=== PATIENT | female | born 1975 | race Caucasian/White ===

== ENCOUNTER 2020-06-19 04:12 | Inpatient (IN) ==
[2020-06-19] MEDS ORDERED: oxyCODONE HCL IR 5 MG TAB (IMMEDIATE RELEASE) PO STA (04:40)
[2020-06-19] MEDS ORDERED: LORazepam 0.5 MG TAB PO STA (04:40)
[2020-06-19] MEDS ORDERED: SODIUM CHLORIDE 0.9% 1000ML 1,000 ML IV ONE (04:40)
--- NOTE | 2020-06-19 04:53 | Emergency Department Note ---
Impression & Plan Unintentional Tylenol overdose, Hepatitis, Cancer related pain, Right knee sprain ED Provider Note Name: YNES MCCARTY Age: 44 Sex: F Arrives Via: Walk-In Informant: Patient ED Provider: Leonardo Brenner MD Chief Complaint: Pain Impression: Unintentional Tylenol Overdose Hepatitis Cancer Related Pain Right Knee Sprain Medical Decision Making: Very pleasant yet uncomfortable and anxious 44 yr old female arrives with gradually worsening pain since discharge from hospital 3 weeks ago following emergency craniotomy for brain tumor with edema. Patient has history breast CA s/p bilateral mastectomy. Found to have brain tumor several months ago which is lung primary and has been treated with steroids/radiation until emergency surgery 3 weeks ago. 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 This morning she is very uncomfortable, sad and anxious. Pain diffuse but involved body aches, worsening upper abdominal cramping and right knee pain (s/p twisting a few days ago). She denies significant headache nor neuro deficits. After discussion agreeable to small dose Ativan/oxy IR which did seem to calm her down some but still uncomfortable. CXR with large right lung mass similar to previous cxr. Labs with elevated LFTs. This is new and consistent with accidental chronic tylenol overdose. Fortunately bili and INR are normal. She will be started on Acetadote protocol per standard of care. She was willing to try small doses of IV pain meds thus 50mcg IV fentanyl ordered, with understanding that this may be difficult pain to treat as it is. She does not have peritonitis on abdominal exam, already has GB removed, is not febrile nor is wbc elevated thus will defer imaging at this time to hospitalist service. She has no neuro deficits nor change in chronic headache, thus neuro imaging not done emergently. Prior Medical Record and Triage/Nursing Notes reviewed by Me Additional history obtained from chart, epic and Differentials:Infection, dehydration, metabolic abnormality, hypo/hyperglycemia, electrolyte disturbance, anemia, hypoxia, cardiac sources, intracerebral event, toxicologic, neurologic, as well as other pathologies. Vital Signs: reviewed and remarkable for no significant abnormalities Interventions: saline lock, oxy ir po, ativan po, fentanyl iv, acetadote IV Labs:Reviewed and remarkable for elevated LFTs Imaging:X ray results are stated below per my interpretation: Chest: 1 view: large right lung mass, no infiltrate/effusion, similar to previous cxr Right Knee: 2 view; no fracture/dislocation Consults:Dr April Yeboah Hospitalist Plan: Disposition:Hospitalization. Condition: Good History of Present Illness:44 yr old female arrives for evaluation of diffuse body aches. Patient with history of breast ca with bilateral mastectomy and previous cholecystectomy who was found to have brain tumor several months ago and was on radiation/steroids. 3 weeks ago had focal seizure and found to have brain edema leading to craniotomy. Brain tumor noted to be lung primarily. She notes that since getting home from hospital she has been able to get by using Tylenol for pain. Over the last few days worsening body aches, pains and fatigue. She notes she is having aching across upper abdomen (right worse than left) associated with mild nausea. She admits she twisted her right knee yesterday and now it is quite painful. Admits she is very stressed about all of this and anxious. Previously has tolerated Percocet though it made her drowsy. Also has tolerated ativan in past. Earlier she noted her jaw felt a bit stiff but this resolved. She had no seizure, tremors, nor shacking. She admits she has not been eating for the last few days and has only urinated a few times in the last few days. Currently has mild headache which is chronic and unchanged. Used Tylenol prior to arrival without improvement. She has been using Tylenol for the last few months for pain, and has been on round the clock every 6 hours since her surgery. She denies fevers, chills, nausea, vomiting, syncope, cp, sob, back pain (beyond chronic), bowel changes, leg swelling, calf pain, rashes nor other symptoms. No inciting incident. Is not currently on steroids. ROS: See above HPI for pertinent positives & negatives. A total of 10 systems reviewed and were otherwise negative. 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 HEAD: Well healing right craniotomy scar EYES: No scleral icterus, unremarkable pupils. ENT: Mucous membranes moist, no nasal congestion. NECK: No masses appreciated, nomeningismus, trachea is midline. RESPIRATORY: Mild junky cough (chronic). No dyspnea. Clear to auscultation and equal bilaterally. No wheeze, no rhonchi. CARDIOVASCULAR: Regular rate and rhythm.No murmurs, rubs, gallops appreciated. GASTROINTESTINAL: Abdomen soft, non-tender, no peritonitis.Bowel sounds positive.No masses appreciated. BACK: No midline tenderness, no CVA tenderness EXTREMITIES: TTP over right patella with mild swelling, no joint swelling, no calf swelling/ttp. Full ROM though with some discomfort. Otherwise normal motion all extremities, no cyanosis, no edema. NEUROLOGIC: Alert and oriented, no acute motor or sensory deficits, no focal weakness, cranial nerves grossly intact. SKIN: No rash, no jaundice, no diaphoresis. Bruising bilateral hands from IV. PSYCH: Very Anxious, Crying GCS: 15 ED Course: Times/Reassessments: gradually improving Leonardo Brenner MD Past Med/Surg History Medical History (Updated 06/19/20 @ 06:31 by Leonardo Brenner MD) No acute medical problems Surgical History History of cholecystectomy Social History Smoking Status: Former smoker Second Hand Exposure: No; Do You Dip or Chew Tobacco: No; Tobacco Cessation Education Requested by Patient: No Hx Alcohol Use: No Hx Substance Use: No Preferred Language: Citizen Of The [place] Communication Ability: Effective Whitewasher Required: No Beliefs That Will Affect Care: None Current Living Situation: Family Feels Safe at Home: Yes Safety Concerns: Feels Safe At This Time Assistive Devices: Glasses Allergies Allergies Allergy/AdvReac Type Severity Reaction Status Date / Time Penicillins Allergy Intermediate SWELLS Verified 06/19/20 05:29 Home Meds Home Medications Medication Instructions Recorded Confirmed omeprazole 20 mg PO DAILY PRN 06/01/20 06/19/20 levetiracetam [Keppra] 1,000 mg PO BID 06/19/20 06/19/20 Results & Data (ED) Vital Signs Vital Signs - 24 hr 06/19/20 04:15 06/19/20 04:27 06/19/20 05:47 Temperature 36.3 C L Temperature Source Temporal Artery Scan Pulse Rate 103 H Pulse Rate [Bilateral Apical] 99 H 92 H Respiratory Rate 20 20 20 Respiratory Depth Normal Blood Pressure 118/80 Blood Pressure [Left Arm] 124/93 132/90 Blood Pressure Mean 92 Blood Pressure Mean [Left Arm] 103 104 Pulse Oximetry 97 96 96 Oxygen Delivery Method Room Air Room Air Room Air Sepsis Recent Fever Within 48 Hours No Sepsis New/Unexplained Change in Mental Status N/A Sepsis Action Taken by Nursing No Action Required Laboratory Data Result diagrams: 06/20/20 06:32 06/20/20 06:32 Lab Results 06/19/20 06/19/20 06/19/20 Range/Units 04:47 04:47 05:30 WBC 8.28 (4.8-10.8) K/uL RBC 4.58 (4.2-5.4) M/uL Hgb 14.2 (12.0-16.0) g/dL Hct 41.0 (37-47) % MCV 89.5 (80-100) fL MCH 31.0 (25-34) pg MCHC 34.6 (32-36) g/dL RDW Std Deviation 43.9 (36.4-46.3) fL RDW Coeff of Suri 13.4 (11.5-14.5) % Plt Count 202 (130-400) K/uL MPV 9.4 (7.4-10.4) fL Immature Gran % (Auto) 0.5 % Neut % (Auto) 71.6 % Lymph % (Auto) 17.6 % [place] % (Auto) 8.1 % Eos % (Auto) 2.1 % Baso % (Auto) 0.1 % Neut # (Auto) 5.93 (1.4-6.5) K/uL Lymph # (Auto) 1.46 (1.2-3.4) K/uL [place] # (Auto) 0.67 H (0.11-0.59) K/uL Eos # (Auto) 0.17 (0-0.5) K/uL Baso # (Auto) 0.01 (0-0.2) K/uL Immature Gran # (Auto) 0.04 H (0.00-0.02) K/uL PT 10.6 (9.0-12.0) Seconds INR 1.0 (0.9-1.1) Sodium 140 (136-145) mmol/L Potassium 3.9 (3.5-5.1) mmol/L Chloride 109 H (98-107) mmol/L Carbon Dioxide 28 (21-32) mmol/L Anion Gap 3.0 (3-11) BUN 8 (7-18) mg/dl Creatinine 0.58 L (0.6-1.2) mg/dl Est Cr Clr Drug Dosing 121.6 ml/min Est GFR ( Amer) 130.8 Est GFR (Non-Af Amer) 112.9 BUN/Creatinine Ratio 13.0 (10-20) Glucose 105 H (70-99) mg/dl Calcium 8.9 (8.5-10.1) mg/dl Magnesium 2.3 (1.8-2.4) mg/dl Total Bilirubin 0.8 (0.2-1) mg/dl Direct Bilirubin 0.2 (0-0.2) mg/dl AST 139 H (15-37) U/L ALT 556 H (12-78) U/L Alkaline Phosphatase 320 H (45-117) U/L Troponin I < 0.015 (0-0.045) ng/ml Total Protein 7.5 (6.4-8.2) gm/dl Albumin 3.0 L (3.4-5.0) gm/dl Acetaminophen (10-30) ug/ml COVID-19 Eval Order Hep Bs Antigen (Neg) Hepatitis C Antibody (Neg) SARS-CoV-2, RNA, NAAT (NEGATIVE) 06/19/20 06/19/20 06/19/20 Range/Units 05:30 05:44 05:55 WBC (4.8-10.8) K/uL RBC (4.2-5.4) M/uL Hgb (12.0-16.0) g/dL Hct (37-47) % MCV (80-100) fL MCH (25-34) pg MCHC (32-36) g/dL RDW Std Deviation (36.4-46.3) fL RDW Coeff of Suri (11.5-14.5) % Plt Count (130-400) K/uL MPV (7.4-10.4) fL Immature Gran % (Auto) % Neut % (Auto) % Lymph % (Auto) % [place] % (Auto) % Eos % (Auto) % Baso % (Auto) % Neut # (Auto) (1.4-6.5) K/uL Lymph # (Auto) (1.2-3.4) K/uL [place] # (Auto) (0.11-0.59) K/uL Eos # (Auto) (0-0.5) K/uL Baso # (Auto) (0-0.2) K/uL Immature Gran # (Auto) (0.00-0.02) K/uL PT (9.0-12.0) Seconds INR (0.9-1.1) Sodium (136-145) mmol/L Potassium (3.5-5.1) mmol/L Chloride (98-107) mmol/L Carbon Dioxide (21-32) mmol/L Anion Gap (3-11) BUN (7-18) mg/dl Creatinine (0.6-1.2) mg/dl Est Cr Clr Drug Dosing ml/min Est GFR ( Amer) Est GFR (Non-Af Amer) BUN/Creatinine Ratio (10-20) Glucose (70-99) mg/dl Calcium (8.5-10.1) mg/dl Magnesium (1.8-2.4) mg/dl Total Bilirubin (0.2-1) mg/dl Direct Bilirubin (0-0.2) mg/dl AST (15-37) U/L ALT (12-78) U/L Alkaline Phosphatase (45-117) U/L Troponin I (0-0.045) ng/ml Total Protein (6.4-8.2) gm/dl Albumin (3.4-5.0) gm/dl Acetaminophen < 2 L (10-30) ug/ml COVID-19 Eval [facility] Bs Antigen Neg (Neg) Hepatitis C Antibody Neg (Neg) SARS-CoV-2, RNA, NAAT (NEGATIVE) 06/19/20 Range/Units 05:55 WBC (4.8-10.8) K/uL RBC (4.2-5.4) M/uL Hgb (12.0-16.0) g/dL Hct (37-47) % MCV (80-100) fL MCH (25-34) pg MCHC (32-36) g/dL RDW Std Deviation (36.4-46.3) fL RDW Coeff of Suri (11.5-14.5) % Plt Count (130-400) K/uL MPV (7.4-10.4) fL Immature Gran % (Auto) % Neut % (Auto) % Lymph % (Auto) % [place] % (Auto) % Eos % (Auto) % Baso % (Auto) % Neut # (Auto) (1.4-6.5) K/uL Lymph # (Auto) (1.2-3.4) K/uL [place] # (Auto) (0.11-0.59) K/uL Eos # (Auto) (0-0.5) K/uL Baso # (Auto) (0-0.2) K/uL Immature Gran # (Auto) (0.00-0.02) K/uL PT (9.0-12.0) Seconds INR (0.9-1.1) Sodium (136-145) mmol/L Potassium (3.5-5.1) mmol/L Chloride (98-107) mmol/L Carbon Dioxide (21-32) mmol/L Anion Gap (3-11) BUN (7-18) mg/dl Creatinine (0.6-1.2) mg/dl Est Cr Clr Drug Dosing ml/min Est GFR ( Amer) Est GFR (Non-Af Amer) BUN/Creatinine Ratio (10-20) Glucose (70-99) mg/dl Calcium (8.5-10.1) mg/dl Magnesium (1.8-2.4) mg/dl Total Bilirubin (0.2-1) mg/dl Direct Bilirubin (0-0.2) mg/dl AST (15-37) U/L ALT (12-78) U/L Alkaline Phosphatase (45-117) U/L Troponin I (0-0.045) ng/ml Total Protein (6.4-8.2) gm/dl Albumin (3.4-5.0) gm/dl Acetaminophen (10-30) ug/ml COVID-19 Eval Order Hep Bs Antigen (Neg) Hepatitis C Antibody (Neg) SARS-CoV-2, RNA, NAAT NEGATIVE (NEGATIVE) Administered Medications Sodium Chloride (Nss 1000ml) 1,000 mls @ 100 mls/hr IV .Q10H KAMILA Stop: 07/19/20 09:14 Last Admin: 06/20/20 06:16 Dose: 100 mls/hr Documented by: [id number] Infusion: 06/20/20 06:16 Dose: 100 mls/hr Documented by: [id number] Admin: 06/19/20 20:55 Dose: 100 mls/hr Documented by: [id number] Infusion: 06/19/20 19:34 Dose: 100 mls/hr Documented by: [id number] Admin: 06/19/20 09:34 Dose: 100 mls/hr Documented by: [id number] Levetiracetam (Levetiracetam 500 Mg Tab) 1,000 mg PO BID KAMILA Stop: 07/19/20 08:59 Last Admin: 06/20/20 09:43 Dose: 1,000 mg Documented by: [id number] Admin: 06/19/20 20:55 Dose: 1,000 mg Documented by: [id number] Admin: 06/19/20 09:38 Dose: 1,000 mg Documented by: [id number] Oxycodone HCl (Oxycodone Hcl Ir 5 Mg Tab (Immediate Release)) 5 mg PO Q4H PRN PRN Reason: Pain Stop: 07/03/20 08:11 Last Admin: 06/20/20 09:43 Dose: 5 mg Documented by: [id number] Admin: 06/19/20 16:15 Dose: 5 mg Documented by: [id number] Admin: 06/19/20 09:31 Dose: 5 mg Documented by: [id number] Discontinued Medications Acetylcysteine (Acetylcysteine Iv 21 Hr Regimen (>40kg)) 1 ea IV NOW STA; Protocol Stop: 06/19/20 05:40 Last Admin: 06/19/20 06:14 Dose: 1 ea Documented by: [id number] Fentanyl Citrate (Fentanyl Citrate 100 Mcg/2 Ml Vial) 50 mcg IV NOW STA Stop: 06/19/20 06:10 Last Admin: 06/19/20 06:13 Dose: 50 mcg Documented by: [id number] Sodium Chloride (Nss 1000ml) 1,000 mls @ 999 mls/hr IV .Q1H1M ONE Stop: 06/19/20 05:40 Last Infusion: 06/19/20 06:30 Dose: 0 mls/hr Documented by: [id number] Admin: 06/19/20 05:01 Dose: 999 mls/hr Documented by: [id number] Acetylcysteine 10,560 mg/ (Dextrose) 252.8 mls @ 200 mls/hr IV ONCE ONE Stop: 06/19/20 06:54 Last Infusion: 06/19/20 07:35 Dose: 0 mls/hr Documented by: [id number] Admin: 06/19/20 06:09 Dose: 200 mls/hr Documented by: [id number] Acetylcysteine 3,520 mg/ (Dextrose) 517.6 mls @ 125 mls/hr IV ONCE ONE Stop: 06/19/20 10:47 Last Infusion: 06/19/20 12:53 Dose: 0 mls/hr Documented by: [id number] Infusion: 06/19/20 08:05 Dose: 125 mls/hr Documented by: [id number] Infusion: 06/19/20 07:32 Dose: 0 mls/hr Documented by: [id number] Admin: 06/19/20 07:32 Dose: 125 mls/hr Documented by: [id number] Acetylcysteine 7,040 mg/ (Dextrose) 1,035.2 mls @ 62.5 mls/hr IV ONCE ONE Stop: 06/20/20 03:12 Last Infusion: 06/20/20 06:18 Dose: 0 mls/hr Documented by: [id number] Admin: 06/19/20 12:53 Dose: 62.5 mls/hr Documented by: [id number] Ibuprofen (Ibuprofen 200 Mg Tab) 400 mg PO NOW STA Stop: 06/20/20 06:25 Last Admin: 06/20/20 06:45 Dose: Not Given Documented by: [id number] Lorazepam (Lorazepam 0.5 Mg Tab) 0.5 mg PO NOW STA Stop: 06/19/20 04:41 Last Admin: 06/19/20 05:01 Dose: 0.5 mg Documented by: [id number] Oxycodone HCl (Oxycodone Hcl Ir 5 Mg Tab (Immediate Release)) 2.5 mg PO NOW STA Stop: 06/19/20 04:41 Last Admin: 06/19/20 05:01 Dose: 2.5 mg Documented by: [id number] Discharge Plan Visit Data Chief Complaint: Seizure Stated Complaint: POSSIBLE SEIZURE,JAW LOCKING UP,PAIN MANAGEMENT ED Provider: Leonardo Brenner Discharge Problem: Unintentional Tylenol overdose, Hepatitis, Cancer related pain, Right knee sprain Patient Disposition: Admitted As Inpatient Discharge Instructions Interventions: ED Discharge Assessment Last Done: 06/19/20 07:34 Discharge Problem: Unintentional Tylenol overdose Qualifiers: Encounter type: initial encounter Qualified Code(s): T39.1X1A - Poisoning by 4- Aminophenol derivatives, accidental (unintentional), initial encounter Right knee sprain Qualifiers: Encounter type: initial encounter Involved ligament of knee: unspecified ligament Qualified Code(s): S83.91XA - Sprain of unspecified site of right knee, initial encounter
[2020-06-19 05:02] LABS: Basophils # (auto) 0.01 K/uL (0-0.2); Basophils % (auto) 0.1 %; Eosinophils # (auto) 0.17 K/uL (0-0.5); Eosinophils % (auto) 2.1 %; Hemoglobin 14.2 g/dL (12.0-16.0); Immature Granulocytes # (auto) 0.04 K/uL (0.00-0.02); Immature Granulocytes % (auto) 0.5 %; Lymphocytes # (auto) 1.46 K/uL (1.2-3.4); Lymphocytes % (auto) 17.6 %; Mean Corpuscular Hgb Conc 34.6 g/dL (32-36); Mean Corpuscular Volume 89.5 fL (80-100); Mean Platelet Volume 9.4 fL (7.4-10.4); Monocytes # (auto) 0.67 K/uL (0.11-0.59); Monocytes % (auto) 8.1 %; Neutrophils # (auto) 5.93 K/uL (1.4-6.5); Neutrophils % (auto) 71.6 %; Platelet Count 202 K/uL (130-400); RDW Coefficient of Variation 13.4 % (11.5-14.5); RDW Standard Deviation 43.9 fL (36.4-46.3); Red Blood Count 4.58 M/uL (4.2-5.4); White Blood Count 8.28 K/uL (4.8-10.8)
[2020-06-19 05:21] LABS: Alanine Aminotransferase 556 U/L (12-78); Aspartate Aminotransferase 139 U/L (15-37); Bilirubin Direct 0.2 mg/dl (0-0.2); Blood Urea Nitrogen 8 mg/dl (7-18); Calcium 8.9 mg/dl (8.5-10.1); Carbon Dioxide 28 mmol/L (21-32); Chloride 109 mmol/L (98-107); Creatinine Clr Calc Pharmacy 121.6 ml/min; Est GFR (African American) 130.8; Est GFR (Non-African American) 112.9; Glucose 105 mg/dl (70-99); Magnesium 2.3 mg/dl (1.8-2.4); Potassium 3.9 mmol/L (3.5-5.1); Sodium 140 mmol/L (136-145)
[2020-06-19 05:26] LABS: Alkaline Phosphatase 320 U/L (45-117); Bilirubin,Total 0.8 mg/dl (0.2-1); Total Protein 7.5 gm/dl (6.4-8.2); Troponin I < 0.015 ng/ml (0-0.045)
[2020-06-19] MEDS ORDERED: AcetylCYSTEINE IV 21 HR REGIMEN (>40KG) IV STA (05:39)
[2020-06-19] MEDS ORDERED: DEXTROSE 5% IV ONE ×3 (05:39→10:39)
[2020-06-19] MEDS ORDERED: ACETYLCYSTEINE IV ONE ×3 (05:39→10:39)
[2020-06-19 06:04] LABS: Prothrombin Time 10.6 Seconds (9.0-12.0)
[2020-06-19] MEDS ORDERED: fentaNYL citrate 100 MCG/2 ML VIAL IV STA (06:09)
--- NOTE | 2020-06-19 07:10 | XRay Report ---
XR chest 1V portable CLINICAL HISTORY: full body aches COMPARISON STUDY: 05/11/2020 FINDINGS: The cardiac and mediastinal contours remain stable. There is a persistent 6 cm right midlun g mass. Hazy increased density at both lung bases may relate to technical factors due to overlying ch est wall tissue. IMPRESSION: Persistent 6 cm right midlung zone mass suspicious for neoplasm. ACT 112: Negative or not required by law. Electronically signed by: Axel Hook M.D. 06/19/2020 7:09 AM
--- NOTE | 2020-06-19 07:31 | XRay Report ---
XR knee RT 3V CLINICAL HISTORY: Right knee pain and COMPARISON: None. DISCUSSION: No acute fractures or dislocations are visualized. There are no erosive or destructive ch anges. IMPRESSION: No significant bony abnormalities. ACT 112: Negative or not required by law. Electronically signed by: Axel Hook M.D. 06/19/2020 7:30 AM
--- NOTE | 2020-06-19 08:05 | CT Scan Report ---
CT SCAN OF THE ABDOMEN AND PELVIS WITHOUT CONTRAST CLINICAL HISTORY: abdominal pain COMPARISON STUDY: 05/11/2020 TECHNIQUE: CT scan of the abdomen and pelvis was performed from the lung bases to the proximal femurs . Images are reviewed in the axial, sagittal, and coronal planes. IV contrast was not administered fo r this examination. A dose lowering technique was utilized adhering to the principles of ALARA. CT DOSE: 620.67 mGy.cm FINDINGS: Lower chest: There are lingular and basilar atelectatic changes. There are nonspecific tiny centrilob ular pulmonary nodules. There is a small pericardial effusion Liver: There is hepatic steatosis. No focal masses are visualized in this noncontrast study Gallbladder: Surgically absent Spleen: Normal in size and attenuation. Pancreas: Unremarkable. Adrenal glands: There is mild enlargement of the left adrenal gland with slightly indistinct margins. Kidneys: No renal, ureteral, or bladder calculi are visualized. Bowel: There are no transition zones indicate bowel obstruction. There is no evidence of acute divert iculitis. The appendix appears normal. Peritoneum: There is no intraperitoneal free air or abdominal ascites. Vasculature: The abdominal aorta is normal in course and caliber. Adenopathy: There is mild aortocaval, portal and mesenteric lymphadenopathy. Pelvic viscera: The uterus appears surgically absent Skeletal structures: No destructive osseous lesions are seen. IMPRESSION: 1. Mild hepatic steatosis 2. No evidence of bowel obstruction. No evidence of free air 3. Normal appendix. No evidence of acute diverticulitis 4. Mild periportal, aortocaval, and mesenteric lymphadenopathy 5. Subtle nonspecific centrilobular pulmonary nodules 6. Mild left adrenal enlargement ACT 112: Negative or not required by law. Electronically signed by: Axel Hook M.D. 06/19/2020 8:04 AM
[2020-06-19] MEDS ORDERED: CONSULT PHARMACY STA (08:12)
--- NOTE | 2020-06-19 08:55 | Gastrointestinal Consultation ---
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 She reported taking Tylenol at home sometimes upwards of 4000 mg/ per day recently for ongoing back pain, and her LFT pattern could be explained by unintentional Tylenol overuse. Fortunately she does not have signs/symptoms of overt liver failure, as she a normal INR and she is not encephalopathic. Abd is soft. - Agree with continuing NAC for 72 hour protocol - Continue supportive care with IVF - Analgesia PRN - Avoid Tylenol - Will check acute hepatitis panel and serologies - US ABD to evaluate biliary anatomy - Monitor LFTs, INR, BMP Thank you for allowing us to participate in the care of this patient. Please call with any acute changes, questions or concerns. Please see addendum below with additional recommendation from my supervising physician. Supervising Physician Co-Signing Physician Notes Late entry: Patient was seen and examined on 06/19 with Nixon Choe PA-C whose note reflects our findings and plan. Feeling a bit better. On NAC. LFTs improving. History of Present Illness Reason for Consultation: unintentional tylenol toxicty, abdominal pain Requesting Physician: Peter Chen MD Attending Physician: Jose Farris MD History of Present Illness This is a 44 y/o female with history of breast CA age 31, BRCA 1 positive, s/p left partial mastectomy, chemo 2007, tobacco use, and recently discovered metastatic adenocarcinoma of the lung with brain metastasis, treated with steroids/radiation until emergency craniotomy at [facility] 06/06/20 after presenting with seizures and enlarging tumor. She was placed on Keppra and dexamethasone, Zofran. She has chronic back pain for which she was using Tylenol/ibuprofen, but had stopped NSAIDs after last hospitalization she states at request of care team due to risk of bleeding. Back pain has not been well-controlled and she has been taking Tylenol routinely, sometimes as much as 4000 mg daily. She prefers not to take narcotics, fears addiction. She came to the ER today for worsening back pain; now feels generalized pain "kind of all over." On arrival, LFTs acutely elevated with AST 139, ALT 556, ALP 320, with normal Tbili at 0.8 and INR 1; with unremarkable CBC, BMP. Tylenol level <2. CXR with large right lung mass similar to previous cxr. CTAP with mild hepatic steatosis; no comment made on bile ducts; scattered intraabdominal lymphadenopathy, and no obs/free air. Due to h/o Tylenol use, she was started on Acetadote and analgesia. She states since radiation she has had an altered sense of taste and "nothing tastes good" and has had weight loss. She states she was planning on having a port placed to start chemo but was interrupted by her craniotomy. Thoracic/lumbar CT last month did not show destructive osseous lesions but did show some spinal stenosis. She tolerated a liquid diet for breakfast. Doens't feel really hungry for solid food. She quit smoking last month. Has drank ETOH maybe 6 times this year; none in the last few months. Denies other OTC or herbal meds. Denies IV/IN drug use. Bowels move well; typically loose, 3 x a day, s/p radha. Denies significant abd pain, n/v, hematemesis, melena, hematochezia, jaundice, fever, leg swelling, dark urine, calvert stools; currently denies CP, SOB. Looking through her Epic chart, LFTs have been intermittently mildly elevated, most recently in early May (particularly ALP), but nearly resolved as of 06/04/20. She is s/p cholecystectomy. Allergies Allergy/AdvReac Type Severity Reaction Status Date / Time Penicillins Allergy Intermediate SWELLS Verified 06/19/20 05:29 Home Medications Medication Instructions Recorded Confirmed Type omeprazole 20 mg PO DAILY PRN 06/01/20 06/19/20 History levetiracetam [Keppra] 1,000 mg PO BID 06/19/20 06/19/20 History Patient History Medical History (Updated 06/19/20 @ 06:31 by Leonardo Brenner MD) No acute medical problems Surgical History History of cholecystectomy Social History Smoking Status: Former smoker Second Hand Exposure: No; Do You Dip or Chew Tobacco: No; Tobacco Cessation Education Requested by Patient: No Hx Alcohol Use: No Hx Substance Use: No Preferred Language: Portuguese Communication Ability: Effective [employer] Required: No Beliefs That Will Affect Care: None Current Living Situation: Family Feels Safe at Home: Yes Safety Concerns: Feels Safe At This Time Assistive Devices: Glasses Review of Systems Review of Systems: All systems reviewed & are unremarkable except as noted in HPI & below Physical Exam Constitutional: well developed and well nourished; no acute distress + chronically ill Respiratory: normal respiratory effort, lungs clear to auscultation Cardiovascular: RRR, no murmur, no edema Gastrointestinal (Abdomen): Inspection/Auscultation: abdomen normal to inspection and normal bowel sounds; abdomen not distended Percussion/Palpation: abdomen soft mild generalized tenderness, no rebound, guarding, distention Skin: no rashes, warm and dry Psychiatric: A+Ox3, euthymic affect Results & Data ([facility]) Vital Signs (Past 12 Hours) Vital Signs Temp Pulse Pulse Resp BP BP Pulse Ox 06/19/20 07:00 86 22 95 06/19/20 06:34 85 20 137/84 96 06/19/20 06:33 85 16 137/84 96 06/19/20 06:30 81 22 96 06/19/20 06:00 85 18 97 06/19/20 05:47 92 H 20 132/90 96 06/19/20 04:27 99 H 20 124/93 96 06/19/20 04:15 36.3 C L 103 H 20 118/80 97 Laboratory Results 06/19/20 06/19/20 06/19/20 Range/Units 05:55 05:55 05:30 WBC (4.8-10.8) K/uL RBC (4.2-5.4) M/uL Hgb (12.0-16.0) g/dL Hct (37-47) % MCV (80-100) fL MCH (25-34) pg MCHC (32-36) g/dL RDW Std Deviation (36.4-46.3) fL RDW Coeff of Suri (11.5-14.5) % Plt Count (130-400) K/uL MPV (7.4-10.4) fL Immature Gran % (Auto) % Neut % (Auto) % Lymph % (Auto) % Denali % (Auto) % Eos % (Auto) % Baso % (Auto) % Neut # (Auto) (1.4-6.5) K/uL Lymph # (Auto) (1.2-3.4) K/uL Denali # (Auto) (0.11-0.59) K/uL Eos # (Auto) (0-0.5) K/uL Baso # (Auto) (0-0.2) K/uL Immature Gran # (Auto) (0.00-0.02) K/uL PT (9.0-12.0) Seconds INR (0.9-1.1) Sodium (136-145) mmol/L Potassium (3.5-5.1) mmol/L Chloride (98-107) mmol/L Carbon Dioxide (21-32) mmol/L Anion Gap (3-11) BUN (7-18) mg/dl Creatinine (0.6-1.2) mg/dl Est Cr Clr Drug Dosing ml/min Est GFR ( Amer) Est GFR (Non-Af Amer) BUN/Creatinine Ratio (10-20) Glucose (70-99) mg/dl Calcium (8.5-10.1) mg/dl Magnesium (1.8-2.4) mg/dl Total Bilirubin (0.2-1) mg/dl Direct Bilirubin (0-0.2) mg/dl AST (15-37) U/L ALT (12-78) U/L Alkaline Phosphatase (45-117) U/L Troponin I (0-0.045) ng/ml Total Protein (6.4-8.2) gm/dl Albumin (3.4-5.0) gm/dl Acetaminophen < 2 L (10-30) ug/ml COVID-19 Eval Order Covid19 IDNow [facility] SARS-CoV-2, RNA, NAAT NEGATIVE (NEGATIVE) 06/19/20 06/19/20 06/19/20 Range/Units 05:30 04:47 04:47 WBC 8.28 (4.8-10.8) K/uL RBC 4.58 (4.2-5.4) M/uL Hgb 14.2 (12.0-16.0) g/dL Hct 41.0 (37-47) % MCV 89.5 (80-100) fL MCH 31.0 (25-34) pg MCHC 34.6 (32-36) g/dL RDW Std Deviation 43.9 (36.4-46.3) fL RDW Coeff of Suri 13.4 (11.5-14.5) % Plt Count 202 (130-400) K/uL MPV 9.4 (7.4-10.4) fL Immature Gran % (Auto) 0.5 % Neut % (Auto) 71.6 % Lymph % (Auto) 17.6 % Denali % (Auto) 8.1 % Eos % (Auto) 2.1 % Baso % (Auto) 0.1 % Neut # (Auto) 5.93 (1.4-6.5) K/uL Lymph # (Auto) 1.46 (1.2-3.4) K/uL Denali # (Auto) 0.67 H (0.11-0.59) K/uL Eos # (Auto) 0.17 (0-0.5) K/uL Baso # (Auto) 0.01 (0-0.2) K/uL Immature Gran # (Auto) 0.04 H (0.00-0.02) K/uL PT 10.6 (9.0-12.0) Seconds INR 1.0 (0.9-1.1) Sodium 140 (136-145) mmol/L Potassium 3.9 (3.5-5.1) mmol/L Chloride 109 H (98-107) mmol/L Carbon Dioxide 28 (21-32) mmol/L Anion Gap 3.0 (3-11) BUN 8 (7-18) mg/dl Creatinine 0.58 L (0.6-1.2) mg/dl Est Cr Clr Drug Dosing 121.6 ml/min Est GFR ( Amer) 130.8 Est GFR (Non-Af Amer) 112.9 BUN/Creatinine Ratio 13.0 (10-20) Glucose 105 H (70-99) mg/dl Calcium 8.9 (8.5-10.1) mg/dl Magnesium 2.3 (1.8-2.4) mg/dl Total Bilirubin 0.8 (0.2-1) mg/dl Direct Bilirubin 0.2 (0-0.2) mg/dl AST 139 H (15-37) U/L ALT 556 H (12-78) U/L Alkaline Phosphatase 320 H (45-117) U/L Troponin I < 0.015 (0-0.045) ng/ml Total Protein 7.5 (6.4-8.2) gm/dl Albumin 3.0 L (3.4-5.0) gm/dl Acetaminophen (10-30) ug/ml COVID-19 Eval Order SARS-CoV-2, RNA, NAAT (NEGATIVE) Diagnostic Findings CTAP 1. Mild hepatic steatosis 2. No evidence of bowel obstruction. No evidence of free air 3. Normal appendix. No evidence of acute diverticulitis 4. Mild periportal, aortocaval, and mesenteric lymphadenopathy 5. Subtle nonspecific centrilobular pulmonary nodules 6. Mild left adrenal enlargement CXR IMPRESSION: Persistent 6 cm right midlung zone mass suspicious for neoplasm.
[2020-06-19] MEDS ORDERED: PANTOprazole 40 MG TAB PO PRN (09:03)
--- NOTE | 2020-06-19 09:09 | History and Physical Report ---
DATE OF ADMISSION: 06/19/2020 CHIEF COMPLAINT: Abdominal pain. HISTORY OF PRESENT ILLNESS: This is a 44-year-old female with past medical history significant for breast cancer status post bilateral mastectomy 13 years ago, history of recent diagnosis of adenocarcinoma of the lung and brain mets, partial complex seizures, comes with abdominal pain. The patient was recently admitted to [facility]. She has history of poorly differentiated adenocarcinoma of the breast with mastectomy and lymph node dissection in 04/2007, status post chemo with Cytoxan and Adriamycin completed in 2007. Recently quit smoking [id number] history, as per the Epic admitted to [facility] in 04/2019 for left sided droop, right lung mass and multiple intracranial metastatic lesions with significant midline shift. In addition, she was having left hand weakness and partial seizures, lung biopsy result and adenocarcinoma and the patient had Mediport for prechemotherapy, started on Keppra, Decadron omeprazole and she was discharged on 05/04/2020. The patient was again admitted to [place] on 06/01/2020, because of relapse of partial seizures and worsening left facial droop and frontal headache with nausea and she had right frontal craniotomy for brain tumor resection. The patient tolerated the procedure well with no complication and the patient was discharged home with followup appointments. The patient says since going home, she is having lot of pain. She was taking Tylenol as she didn't wanted narcotic pain medications and she also has abdominal pain and back pain and also stated her right knee twisted developed pain so was r taking Tylenol around the clock .And tonight she was having severe pain in the back and also right upper quadrant pain and clenched jaw, she was worried about she was having seizures and came to the hospital. In the ER, workup showed elevated LFTs, thought to be from Tylenol toxicity and she was started on acetylcysteine by the ER. The patient is now agreeable to take narcotic pain medication, resting comfortably. She received fentanyl and oxycodone in the ER. She has some chronic cough. No fever, no chills, no chest pain, no nausea, no vomiting. No diarrhea or constipation or blood in the stools or black stools. She has some headache. No dizziness, no blurred vision, no earache, no runny nose, no sore throat, no loss of sense of smell or taste. Appetite is not that great. ALLERGIES: PENICILLINS. PAST MEDICAL HISTORY: As mentioned above. PAST SURGICAL HISTORY: Bilateral mastectomy, laparoscopic cholecystectomy, ovarian cystectomy, craniotomy with removal of supratentorial brain tumor, tonsillectomy and adenoidectomy, total hysterectomy. MEDICATIONS: Currently, the patient is taking Keppra 1000 mg p.o. b.i.d., omeprazole 20 mg p.o. daily p.r.n. FAMILY HISTORY: Significant for aunt has breast cancer. Paternal grandmother had breast cancer. Sister has breast cancer. Uncle has bone cancer. Paternal grandmother, diabetes. Uncle has diabetes. SOCIAL HISTORY: . Former smoker, quit in 04/2020, smoked 1 pack a day for 23 years. Alcohol rarely. No drug use. REVIEW OF SYMPTOMS: As per HPI. Rest of the review of systems negative. PHYSICAL EXAMINATION: GENERAL: The patient is of moderate build, not in acute distress. VITAL SIGNS: Temperature 36.3, pulse 86, respiratory rate 22, blood pressure 137/84, oxygen 95% on room air. HEENT: Pupils equal, round, reactive to light. Oral mucosa moist. NECK: No neck masses seen. CARDIOVASCULAR: S1, S2, regular rate and rhythm, no murmur, no gallop. RESPIRATORY SYSTEM: Normal AP diameter. No accessory muscle use. No wheezing, no crackles. ABDOMEN: Soft, bowel sounds present. Mild right upper quadrant tenderness present. Mild guarding, no rigidity. No distention. CENTRAL NERVOUS SYSTEM: Cranial nerves II-XII grossly intact, nonfocal. EXTREMITIES: No edema, no erythema. LABORATORY DATA: WBC 8.3, hemoglobin 14.2, hematocrit 41, platelets 202. PT 10.6, INR 1. Sodium 140, potassium 3.9, chloride 109, bicarbonate 28, BUN 8, creatinine 0.5, serum glucose 105, calcium 8.9, magnesium 2.3, total bilirubin 0.8, direct bilirubin 0.2, AST 139, ALT 556, alkaline phosphatase of 320. Troponin I less than 0.015. Acetaminophen less than 2. SARS-CoV-2 RNA negative. Chest x-ray, persistent 6 cm right mid lung zone mass suspicious for neoplasm. Knee x-ray, no significant abnormalities. IMAGING: CT of the abdomen and pelvis, mild hepatic steatosis, no evidence of bowel obstruction, no evidence of free air, normal appendix. No evidence of acute diverticulitis, mild periportal aortocaval and mesenteric lymphadenopathy. Subtle nonspecific central lobar pulmonary nodules, mild left atrial enlargement. ASSESSMENT AND PLAN: This is a 44-year-old female who presents with right upper quadrant abdominal pain and also elevated transaminitis. 1. Abdominal pain, elevated LFTs with elevated AST, ALT, alkaline phosphatase. She was taking around the clock Tylenol, though the Tylenol level is low. Possible unintentional Tylenol toxicity. The patient was started on n-acetylcysteine, which we will continue and also GI consulted . Ct abdomen showing some periportal mesenteric and retrocaval lymphadenopathy, await GI input. Pain control with oxycodone p.r.n. 2. Metastatic adenocarcinoma of the lung, mets to the brain, recently had craniotomy and brain mass resection. Plan to have PET scan soon and plan for chemo. 3. History of partial complex seizures from brain mets on Keppra, which we will continue. 4. History of breast cancer, bilateral mastectomy. 5. Deep venous thrombosis prophylaxis, sequential compression devices for now. 6. Disposition: Closely monitor in the [facility]. Level 1 full code. Expect discharge home and follow with family doctor. ASMITA
[2020-06-19] MEDS: oxyCODONE HCL IR 5 MG TAB (IMMEDIATE RELEASE) PO PRN ×2 (09:31→16:15)
[2020-06-19] MEDS: SODIUM CHLORIDE 0.9% 1000ML 1,000 ML IV SCH ×2 (09:34→20:55)
[2020-06-19] MEDS: levETIRAcetam 500 MG TAB PO SCH ×2 (09:38→20:55)
--- NOTE | 2020-06-19 11:26 | Electrocardiogram Report ---
Test Reason : Blood Pressure : / mmHG Vent. Rate : 086 BPM Atrial Rate : 086 BPM P-R Int : 120 ms QRS Dur : 072 ms QT Int : 342 ms P-R-T Axes : -02 078 067 degrees QTc Int : 409 ms Poor data quality, interpretation may be adversely affected Normal sinus rhythm Normal ECG When compared with ECG of 01-JUN-2020 06:33, No significant change was found Confirmed by Ezekiel Lopez ([id number]) on 06/19/2020 11:25:31 AM Referred By: REFERRED SELF Confirmed By:Tushar Lopez
[2020-06-19 11:45] LABS: Appearance Urine Clear (Clear); Bilirubin Urine Negative (Negative); Blood Urine Negative (Negative); Color Urine Yellow; Glucose Urine UA Negative (Negative); Ketones Urine 1+ (Negative); Leukocyte Esterase Urine Negative (Negative); Nitrite Urine Negative (Negative); Protein Urine Negative (Negative); Specific Gravity Urine 1.013 (1.000-1.030); Urobilinogen Urine Negative (Negative); pH Urine 6.5 (4.5-7.5)
[2020-06-19 13:34] LABS: Albumin Level 2.6 gm/dl (3.4-5.0); Bilirubin Direct 0.2 mg/dl (0-0.2); Bilirubin,Total 1.1 mg/dl (0.2-1); Total Protein 6.6 gm/dl (6.4-8.2)
--- NOTE | 2020-06-19 15:00 | Ultrasound Report ---
US abdomen limited HISTORY: 44 years-old Female elevated lfts acutely elevated LFTs COMPARISON: CT abdomen and pelvis of same day TECHNIQUE: Multiple real-time sonographic images of the abdominal right upper quadrant were obtained assessing grayscale appearance and color flow FINDINGS: Unremarkable pancreas. Increased echogenicity of the liver. No hepatic mass or marginal nodularity.] Discectomy. Common bile duct is normal, 5 mm. Unremarkable right kidney without hydronephrosis. IMPRESSION: 1. Cholecystectomy without biliary ductal dilation. 2. Hepatic steatosis. ACT 112: Negative or not required by law. The above report was generated using voice recognition software. It may contain grammatical, syntax o r spelling errors. Electronically signed by: Ashwin Borja M.D. 06/19/2020 2:58 PM
[2020-06-19 15:17] LABS: Hepatitis B Surface Antigen Neg (Neg)
[2020-06-19 15:46] LABS: Hepatitis C IgG 13Yrs+Old_Rflx Neg (Neg)
--- NOTE | 2020-06-19 21:26 | Hospitalist Progress Note ---
Date of Service June 19, 2020 Assessment & Plan Admission and Anticipated Discharge Date Admission Date: June 19, 2020 Subjective Pt admitted this AM. Pt seen and examined by me in room 261. She is laying in bed, in NAD, but fatigued and "trying to get some rest". Reports that RUQ is better now but she continues to have posterior chest wall discomfort which is chronic and pt states that "it is from cancer". No fever, chills, shortness of breath. Reports using tylenol as directed prior to admission, and no other pain medications. Currently receiving IV NAC, started in ED. Seen by GI, hepatitis panel ordered. Abd. images reviewed. Cont. NAC for now. LFTs trending down. Cont. to closely monitor. CMP, CBC, INR for tmrw AM ordered. MD Brenton Results & Data Results & Data ([facility]) Vital Signs (Past 12 Hours) Vital Signs Temp Pulse Pulse Pulse Resp BP BP 06/19/20 19:57 37 C 83 18 107/75 06/19/20 16:00 89 06/19/20 15:12 37.0 C 88 18 117/79 06/19/20 11:32 37.0 C 95 H 18 124/81 Pulse Ox 06/19/20 19:57 95 06/19/20 16:00 06/19/20 15:12 95 06/19/20 11:32 96
[2020-06-20] MEDS: SODIUM CHLORIDE 0.9% 1000ML 1,000 ML IV SCH (06:16)
[2020-06-20] MEDS ORDERED: IBUPROFEN 200 MG TAB PO STA (06:24)
[2020-06-20] MEDS: levETIRAcetam 500 MG TAB PO SCH ×3 (06:44→22:08)
[2020-06-20 07:01] LABS: Basophils # (auto) 0.02 K/uL (0-0.2); Basophils % (auto) 0.3 %; Eosinophils # (auto) 0.13 K/uL (0-0.5); Eosinophils % (auto) 1.8 %; Hematocrit (blood only) 36.9 % (37-47); Hemoglobin 12.4 g/dL (12.0-16.0); Immature Granulocytes # (auto) 0.03 K/uL (0.00-0.02); Immature Granulocytes % (auto) 0.4 %; Lymphocytes # (auto) 1.43 K/uL (1.2-3.4); Lymphocytes % (auto) 20.1 %; Mean Corpuscular Hemoglobin 30.2 pg (25-34); Mean Corpuscular Hgb Conc 33.6 g/dL (32-36); Mean Corpuscular Volume 89.8 fL (80-100); Mean Platelet Volume 9.6 fL (7.4-10.4); Monocytes # (auto) 0.67 K/uL (0.11-0.59); Monocytes % (auto) 9.4 %; Neutrophils # (auto) 4.85 K/uL (1.4-6.5); Platelet Count 185 K/uL (130-400); RDW Coefficient of Variation 13.4 % (11.5-14.5); RDW Standard Deviation 44.1 fL (36.4-46.3); Red Blood Count 4.11 M/uL (4.2-5.4); White Blood Count 7.13 K/uL (4.8-10.8)
[2020-06-20 07:04] LABS: INR 1.1 (0.9-1.1); Prothrombin Time 11.4 Seconds (9.0-12.0)
[2020-06-20 07:18] LABS: Albumin Level 2.5 gm/dl (3.4-5.0); BUN Creatinine Ratio 5.7 (10-20); Bilirubin Direct 0.2 mg/dl (0-0.2); Calcium 8.5 mg/dl (8.5-10.1); Creatinine Clr Calc Pharmacy 170.4 ml/min; Est GFR (African American) 140.2; Magnesium 2.2 mg/dl (1.8-2.4); Potassium 3.6 mmol/L (3.5-5.1)
[2020-06-20 07:21] LABS: Albumin Globulin Ratio 0.6 (0.9-2); Bilirubin,Total 1.2 mg/dl (0.2-1); Globulin 3.9 gm/dl (2.5-4.0); Phosphorus 3.3 mg/dl (2.5-4.9); Total Protein 6.4 gm/dl (6.4-8.2)
[2020-06-20] MEDS: oxyCODONE HCL IR 5 MG TAB (IMMEDIATE RELEASE) PO PRN ×3 (09:43→22:10)
--- NOTE | 2020-06-20 11:24 | Gastroenterology Progress Note ---
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 She reported taking Tylenol at home sometimes upwards of 4000 mg/ per day recently for ongoing back pain, and her LFT pattern could be explained by unintentional Tylenol overuse. Fortunately she does not have signs/symptoms of overt liver failure, as she a normal INR and she is not encephalopathic. Abd is soft. She completed NAC 20 hour protocol yesterday. LFTs trending down today, ALT improved, not quite by half. ALP elevated; this may be in the setting of known malignancy. Neg Hep C and Hep B surface antigen. - Continue supportive care with IVF - Analgesia PRN - Avoid Tylenol - Await final acute hepatitis panel, EBV, HSV, CMV and serologies - Monitor LFTs, INR, BMP Thank you for allowing us to participate in the care of this patient. Please call with any acute changes, questions or concerns. Please see addendum below with additional recommendation from my supervising physician. Admission and Anticipated Discharge Date Admission Date: June 19, 2020 Supervising Physician Co-Signing Physician Notes Late entry: Patient was seen and examined on 06/20 with Nixon Choe PA-C whose note reflects our findings and plan. Feeling a bit better. On NAC. LFTs improving. Subjective Patient seen and examined, chart reviewed. Feeling better today. Slept well yesterday after not sleeping more than 2 hours for some time. LFTs trending down, INR, renal fxn WNL. VSS. US ABD with hepatic steatosis, CBD 5 mm. Denies abd pain, n/v, melena, hematochezia, fever, CP, SOB. Review of Systems Review of Systems: All systems reviewed & are unremarkable except as noted in HPI & below Physical Exam Constitutional: WD/WN, vitals as above Eyes: + anicteric sclerae Respiratory: normal respiratory effort, lungs clear to auscultation Cardiovascular: RRR, no murmur, no edema Gastrointestinal (Abdomen): normal bowel sounds, soft, nontender, no hepatosplenomegaly Skin: no rashes, warm and dry Psychiatric: A+Ox3, euthymic affect Results & Data ([facility]) Vital Signs (Past 12 Hours) Vital Signs Temp Pulse Pulse Resp BP Pulse Ox 06/20/20 08:00 88 06/20/20 07:26 36.7 C 87 18 115/77 92 06/20/20 02:58 37.0 C 97 H 17 117/77 93 06/19/20 23:28 37.1 C 93 H 15 102/68 94 Laboratory Results 06/20/20 06/20/20 06/20/20 Range/Units 06:32 06:32 06:32 WBC 7.13 (4.8-10.8) K/uL RBC 4.11 L (4.2-5.4) M/uL Hgb 12.4 (12.0-16.0) g/dL Hct 36.9 L (37-47) % MCV 89.8 (80-100) fL MCH 30.2 (25-34) pg MCHC 33.6 (32-36) g/dL RDW Std Deviation 44.1 (36.4-46.3) fL RDW Coeff of Suri 13.4 (11.5-14.5) % Plt Count 185 (130-400) K/uL MPV 9.6 (7.4-10.4) fL Immature Gran % (Auto) 0.4 % Neut % (Auto) 68.0 % Lymph % (Auto) 20.1 % [place] % (Auto) 9.4 % Eos % (Auto) 1.8 % Baso % (Auto) 0.3 % Neut # (Auto) 4.85 (1.4-6.5) K/uL Lymph # (Auto) 1.43 (1.2-3.4) K/uL [place] # (Auto) 0.67 H (0.11-0.59) K/uL Eos # (Auto) 0.13 (0-0.5) K/uL Baso # (Auto) 0.02 (0-0.2) K/uL Immature Gran # (Auto) 0.03 H (0.00-0.02) K/uL PT 11.4 (9.0-12.0) Seconds INR 1.1 (0.9-1.1) Sodium 142 (136-145) mmol/L Potassium 3.6 (3.5-5.1) mmol/L Chloride 109 H (98-107) mmol/L Carbon Dioxide 29 (21-32) mmol/L Anion Gap 4.0 (3-11) BUN 3 L D (7-18) mg/dl Creatinine 0.47 L (0.6-1.2) mg/dl Est Cr Clr Drug Dosing 170.4 ml/min Est GFR ( Amer) 140.2 Est GFR (Non-Af Amer) 121.0 BUN/Creatinine Ratio 5.7 L (10-20) Glucose 94 (70-99) mg/dl Calcium 8.5 (8.5-10.1) mg/dl Phosphorus 3.3 (2.5-4.9) mg/dl Magnesium 2.2 (1.8-2.4) mg/dl Total Bilirubin 1.2 H (0.2-1) mg/dl Direct Bilirubin 0.2 (0-0.2) mg/dl AST 56 H (15-37) U/L ALT 350 H (12-78) U/L Alkaline Phosphatase 269 H (45-117) U/L Total Protein 6.4 (6.4-8.2) gm/dl Albumin 2.5 L (3.4-5.0) gm/dl Globulin 3.9 (2.5-4.0) gm/dl Albumin/Globulin Ratio 0.6 L (0.9-2) Jfxbq-1-Dhurmzwqobn Ceruloplasmin Urine Color Urine Appearance (Clear) Urine pH (4.5-7.5) Ur Specific [place] (1.000-1.030) Urine Protein (Negative) Urine Glucose (UA) (Negative) Urine Ketones (Negative) Urine Blood (Negative) Urine Nitrite (Negative) Urine Bilirubin (Negative) Urine Urobilinogen (Negative) Ur Leukocyte Esterase (Negative) DIMITRY Screen Anti-Mitochondrial Ab Anti-Smooth Muscle Ab CMV IgM Ab EBV Capsid Ag IgM Ab Hepatitis A IgM Ab Hep Bs Antigen (Neg) Hep B Core IgM Ab Hepatitis C Antibody (Neg) HSV I IgM TORCH HSV II IgM TORCH 06/20/20 06/19/20 06/19/20 Range/Units 06:32 12:51 11:30 WBC (4.8-10.8) K/uL RBC (4.2-5.4) M/uL Hgb (12.0-16.0) g/dL Hct (37-47) % MCV (80-100) fL MCH (25-34) pg MCHC (32-36) g/dL RDW Std Deviation (36.4-46.3) fL RDW Coeff of Suri (11.5-14.5) % Plt Count (130-400) K/uL MPV (7.4-10.4) fL Immature Gran % (Auto) % Neut % (Auto) % Lymph % (Auto) % [place] % (Auto) % Eos % (Auto) % Baso % (Auto) % Neut # (Auto) (1.4-6.5) K/uL Lymph # (Auto) (1.2-3.4) K/uL [place] # (Auto) (0.11-0.59) K/uL Eos # (Auto) (0-0.5) K/uL Baso # (Auto) (0-0.2) K/uL Immature Gran # (Auto) (0.00-0.02) K/uL PT (9.0-12.0) Seconds INR (0.9-1.1) Sodium (136-145) mmol/L Potassium (3.5-5.1) mmol/L Chloride (98-107) mmol/L Carbon Dioxide (21-32) mmol/L Anion Gap (3-11) BUN (7-18) mg/dl Creatinine (0.6-1.2) mg/dl Est Cr Clr Drug Dosing ml/min Est GFR ( Amer) Est GFR (Non-Af Amer) BUN/Creatinine Ratio (10-20) Glucose (70-99) mg/dl Calcium (8.5-10.1) mg/dl Phosphorus (2.5-4.9) mg/dl Magnesium (1.8-2.4) mg/dl Total Bilirubin 1.1 H (0.2-1) mg/dl Direct Bilirubin 0.2 (0-0.2) mg/dl AST 114 H (15-37) U/L ALT 471 H (12-78) U/L Alkaline Phosphatase 301 H (45-117) U/L Total Protein 6.6 (6.4-8.2) gm/dl Albumin 2.6 L (3.4-5.0) gm/dl Globulin (2.5-4.0) gm/dl Albumin/Globulin Ratio (0.9-2) Ydqgq-1-Zsatzqtqksu Pending Ceruloplasmin Pending Urine Color Yellow Urine Appearance Clear (Clear) Urine pH 6.5 (4.5-7.5) Ur Specific [place] 1.013 (1.000-1.030) Urine Protein Negative (Negative) Urine Glucose (UA) Negative (Negative) Urine Ketones 1+ H (Negative) Urine Blood Negative (Negative) Urine Nitrite Negative (Negative) Urine Bilirubin Negative (Negative) Urine Urobilinogen Negative (Negative) Ur Leukocyte Esterase Negative (Negative) DIMITRY Screen Pending Anti-Mitochondrial Ab Pending Anti-Smooth Muscle Ab Pending CMV IgM Ab Pending EBV Capsid Ag IgM Ab Pending Hepatitis A IgM Ab Pending Hep Bs Antigen (Neg) Hep B Core IgM Ab Pending Hepatitis C Antibody (Neg) HSV I IgM TORCH Pending HSV II IgM TORCH Pending 06/19/20 Range/Units 05:44 WBC (4.8-10.8) K/uL RBC (4.2-5.4) M/uL Hgb (12.0-16.0) g/dL Hct (37-47) % MCV (80-100) fL MCH (25-34) pg MCHC (32-36) g/dL RDW Std Deviation (36.4-46.3) fL RDW Coeff of Suri (11.5-14.5) % Plt Count (130-400) K/uL MPV (7.4-10.4) fL Immature Gran % (Auto) % Neut % (Auto) % Lymph % (Auto) % [place] % (Auto) % Eos % (Auto) % Baso % (Auto) % Neut # (Auto) (1.4-6.5) K/uL Lymph # (Auto) (1.2-3.4) K/uL [place] # (Auto) (0.11-0.59) K/uL Eos # (Auto) (0-0.5) K/uL Baso # (Auto) (0-0.2) K/uL Immature Gran # (Auto) (0.00-0.02) K/uL PT (9.0-12.0) Seconds INR (0.9-1.1) Sodium (136-145) mmol/L Potassium (3.5-5.1) mmol/L Chloride (98-107) mmol/L Carbon Dioxide (21-32) mmol/L Anion Gap (3-11) BUN (7-18) mg/dl Creatinine (0.6-1.2) mg/dl Est Cr Clr Drug Dosing ml/min Est GFR ( Amer) Est GFR (Non-Af Amer) BUN/Creatinine Ratio (10-20) Glucose (70-99) mg/dl Calcium (8.5-10.1) mg/dl Phosphorus (2.5-4.9) mg/dl Magnesium (1.8-2.4) mg/dl Total Bilirubin (0.2-1) mg/dl Direct Bilirubin (0-0.2) mg/dl AST (15-37) U/L ALT (12-78) U/L Alkaline Phosphatase (45-117) U/L Total Protein (6.4-8.2) gm/dl Albumin (3.4-5.0) gm/dl Globulin (2.5-4.0) gm/dl Albumin/Globulin Ratio (0.9-2) Yoxmk-0-Qknvityfcxq Ceruloplasmin Urine Color Urine Appearance (Clear) Urine pH (4.5-7.5) Ur Specific [place] (1.000-1.030) Urine Protein (Negative) Urine Glucose (UA) (Negative) Urine Ketones (Negative) Urine Blood (Negative) Urine Nitrite (Negative) Urine Bilirubin (Negative) Urine Urobilinogen (Negative) Ur Leukocyte Esterase (Negative) DIMITRY Screen Anti-Mitochondrial Ab Anti-Smooth Muscle Ab CMV IgM Ab EBV Capsid Ag IgM Ab Hepatitis A IgM Ab Hep Bs Antigen Neg (Neg) Hep B Core IgM Ab Hepatitis C Antibody Neg (Neg) HSV I IgM TORCH HSV II IgM TORCH Diagnostic Findings US ABD: FINDINGS: Unremarkable pancreas. Increased echogenicity of the liver. No hepatic mass or marginal nodularity.] Discectomy. Common bile duct is normal, 5 mm. Unremarkable right kidney without hydronephrosis. IMPRESSION: 1. Cholecystectomy without biliary ductal dilation. 2. Hepatic steatosis.
--- NOTE | 2020-06-20 16:36 | Hospitalist Progress Note ---
Date of Service June 20, 2020 Assessment & Plan (1) Unintentional Tylenol overdose: ASSESSMENT AND PLAN: This is a 44-year-old female who presents with right upper quadrant abdominal pain and also elevated transaminitis. 1. unintentional Tylenol Overdose - received N Acetylcysteine protocol - RUQ pain, LFTs improving - GI consulted - Ct abdomen showing some periportal mesenteric and retrocaval lymphadenopathy 2. Metastatic adenocarcinoma of the lung, mets to the brain, recently had craniotomy and brain mass resection. Plan to have PET scan soon and plan for chemo. - patient reports Oxycodone giving adequate relief of chronic R upper back pain continue to monitor 3. 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 History of breast cancer, bilateral mastectomy. 5. Deep venous thrombosis prophylaxis, sequential compression devices for now. Encouraged to ambulate frequently. 6. Disposition: - anticipate to d/c home tomorrow when medically stable Admission and Anticipated Discharge Date Admission Date: June 19, 2020 Subjective ff up for tylenol toxicity seen resting in bed, comfortable states she feels better overall Right Upper back pain adequately controlled RUQ pain also resolving, no nausea no chest pain, dyspnea, palpitations, dizziness no other symptoms Review of Systems Review of Systems: All systems reviewed & are unremarkable except as noted in Subjective Physical Exam Physical Exam: General- oriented x 3, not in distress, speaks in sentences with no effort or accessory muscle use Eyes- anicteric Neck- no JVD Lungs- clear breath sounds bilaterally, no rales/wheezes Heart- normal rate, regular rhythm; no murmurs Abdomen- normal bowel sounds, nondistended, soft, nontender Extremities- no pretibial edema, no calf tenderness Neuro- alert, oriented x 3; no gross focal neurologic deficits Skin- warm & dry Results & Data Results & Data ([facility]) Vital Signs (Past 12 Hours) Vital Signs Temp Pulse Pulse Resp BP Pulse Ox 06/20/20 16:29 37.3 C 102 H 18 117/73 97 06/20/20 11:25 36.8 C 97 H 18 118/82 93 06/20/20 08:00 88 06/20/20 07:26 36.7 C 87 18 115/77 92 Laboratory Results Laboratory Results - last 24 hr 06/20/20 06/20/20 06/20/20 06:32 06:32 06:32 WBC 7.13 RBC 4.11 L Hgb 12.4 Hct 36.9 L MCV 89.8 MCH 30.2 MCHC 33.6 RDW Std Deviation 44.1 RDW Coeff of Suri 13.4 Plt Count 185 MPV 9.6 Immature Gran % (Auto) 0.4 Neut % (Auto) 68.0 Lymph % (Auto) 20.1 [place] % (Auto) 9.4 Eos % (Auto) 1.8 Baso % (Auto) 0.3 Neut # (Auto) 4.85 Lymph # (Auto) 1.43 [place] # (Auto) 0.67 H Eos # (Auto) 0.13 Baso # (Auto) 0.02 Immature Gran # (Auto) 0.03 H PT INR Sodium 142 Potassium 3.6 Chloride 109 H Carbon Dioxide 29 Anion Gap 4.0 BUN 3 L D Creatinine 0.47 L Est Cr Clr Drug Dosing 170.4 Est GFR ( Amer) 140.2 Est GFR (Non-Af Amer) 121.0 BUN/Creatinine Ratio 5.7 L Glucose 94 Calcium 8.5 Phosphorus 3.3 Magnesium 2.2 Total Bilirubin 1.2 H Direct Bilirubin 0.2 AST 56 H ALT 350 H Alkaline Phosphatase 269 H Total Protein 6.4 Albumin 2.5 L Globulin 3.9 Albumin/Globulin Ratio 0.6 L Dcljd-2-Yekjvgmphyu Pending Ceruloplasmin Pending DIMITRY Screen Pending Anti-Mitochondrial Ab Pending Anti-Smooth Muscle Ab Pending CMV IgM Ab Pending EBV Capsid Ag IgM Ab Pending Hepatitis A IgM Ab Pending Hep B Core IgM Ab Pending HSV I IgM TORCH Pending HSV II IgM TORCH Pending 06/20/20 06:32 WBC RBC Hgb Hct MCV MCH MCHC RDW Std Deviation RDW Coeff of Suri Plt Count MPV Immature Gran % (Auto) Neut % (Auto) Lymph % (Auto) [place] % (Auto) Eos % (Auto) Baso % (Auto) Neut # (Auto) Lymph # (Auto) [place] # (Auto) Eos # (Auto) Baso # (Auto) Immature Gran # (Auto) PT 11.4 INR 1.1 Sodium Potassium Chloride Carbon Dioxide Anion Gap BUN Creatinine Est Cr Clr Drug Dosing Est GFR ( Amer) Est GFR (Non-Af Amer) BUN/Creatinine Ratio Glucose Calcium Phosphorus Magnesium Total Bilirubin Direct Bilirubin AST ALT Alkaline Phosphatase Total Protein Albumin Globulin Albumin/Globulin Ratio Yhwrf-8-Fdbopjxvuit Ceruloplasmin DIMITRY Screen Anti-Mitochondrial Ab Anti-Smooth Muscle Ab CMV IgM Ab EBV Capsid Ag IgM Ab Hepatitis A IgM Ab Hep B Core IgM Ab HSV I IgM TORCH HSV II IgM TORCH (1) Unintentional Tylenol overdose Encounter type: initial encounter Qualified Code(s): T39.1X1A - Poisoning by 4-Aminophenol derivatives, accidental (unintentional), initial encounter
--- NOTE | 2020-06-21 07:17 | Gastroenterology Progress Note ---
Date of Service June 21, 2020 Assessment & Plan (1) Hepatitis: This is a 44 y/o female with h/o breast CA, recently discovered metastatic adenocarcinoma of the lung, mets to the brain with seizures and underwent craniotomy 06/06/20, with acutely elevated LFTs in a mostly cholestatic pattern, without obvious biliary obstruction on imaging CT/US. Reported taking Tylenol at home sometimes upwards of 4000 mg/ per day. LFTs pattern most likely from unintentional Tylenol overuse. She has not had signs overt liver failure, as she a normal INR and is not encephalopathic. Abd remains soft. She completed NAC protocol. LFTs continue to trend down. Neg Hep C and Hep B surface antigen. - Continue supportive care with IVF - Analgesia PRN - Would avoid Tylenol - Await final acute hepatitis panel, EBV, HSV, CMV and serologies - Would continue to monitor LFTs, INR, BMP after discharge to ensure they normalize Thank you for allowing us to participate in the care of this patient. Please call with any acute changes, questions or concerns. Please see addendum below with additional recommendation from my supervising physician. Admission and Anticipated Discharge Date Admission Date: June 19, 2020 Supervising Physician Co-Signing Physician Notes Late entry: Patient was seen and examined on 06/21 with Nixon Choe PA-C whose note reflects our findings and plan. Subjective Patient seen and examined, chart reviewed. Feeling better today. Tolerating regular diet. Pain is improved on present regimen of oxycodone. LFTs continue to trend down, INR, renal fxn WNL. VSS. US ABD with CBD 5 mm. Denies abd pain, n/v, melena, hematochezia, fever, CP, SOB. Review of Systems Review of Systems: All systems reviewed & are unremarkable except as noted in HPI & below Physical Exam Constitutional: WD/WN, vitals as above well developed and well nourished; no acute distress Eyes: + anicteric sclerae Respiratory: normal respiratory effort Cardiovascular: RRR, no murmur, no edema Gastrointestinal (Abdomen): Inspection/Auscultation: abdomen normal to inspection; abdomen not distended Percussion/Palpation: abdomen soft Skin: no rashes, warm and dry Psychiatric: A+Ox3, euthymic affect Results & Data ([facility]) Vital Signs (Past 12 Hours) Vital Signs Temp Pulse Pulse Resp BP Pulse Ox 06/21/20 00:13 89 06/20/20 22:15 36.5 C 98 H 20 110/73 93 06/20/20 19:30 37.0 C 88 18 99/66 L 94 Laboratory Results 06/21/20 06/21/20 06/21/20 Range/Units 07:31 07:31 07:31 WBC 7.78 (4.8-10.8) K/uL RBC 4.06 L (4.2-5.4) M/uL Hgb 12.3 (12.0-16.0) g/dL Hct 36.3 L (37-47) % MCV 89.4 (80-100) fL MCH 30.3 (25-34) pg MCHC 33.9 (32-36) g/dL RDW Std Deviation 43.8 (36.4-46.3) fL RDW Coeff of Suri 13.3 (11.5-14.5) % Plt Count 189 (130-400) K/uL MPV 9.2 (7.4-10.4) fL PT 11.1 (9.0-12.0) Seconds INR 1.1 (0.9-1.1) Sodium 138 (136-145) mmol/L Potassium 3.6 (3.5-5.1) mmol/L Chloride 106 (98-107) mmol/L Carbon Dioxide 24 (21-32) mmol/L Anion Gap 8.0 (3-11) BUN 4 L (7-18) mg/dl Creatinine 0.44 L (0.6-1.2) mg/dl Est Cr Clr Drug Dosing 182.7 ml/min Est GFR ( Amer) 143.3 Est GFR (Non-Af Amer) 123.6 BUN/Creatinine Ratio 9.4 L (10-20) Glucose 81 (70-99) mg/dl Calcium 9.1 (8.5-10.1) mg/dl Total Bilirubin 1.1 H (0.2-1) mg/dl AST 46 H (15-37) U/L ALT 267 H (12-78) U/L Alkaline Phosphatase 286 H (45-117) U/L Total Protein 6.6 (6.4-8.2) gm/dl Albumin 2.7 L (3.4-5.0) gm/dl Globulin 3.9 (2.5-4.0) gm/dl Albumin/Globulin Ratio 0.7 L (0.9-2)
[2020-06-21 07:40] LABS: Hematocrit (blood only) 36.3 % (37-47); Hemoglobin 12.3 g/dL (12.0-16.0); Mean Corpuscular Hemoglobin 30.3 pg (25-34); Mean Corpuscular Hgb Conc 33.9 g/dL (32-36); Mean Corpuscular Volume 89.4 fL (80-100); Mean Platelet Volume 9.2 fL (7.4-10.4); Platelet Count 189 K/uL (130-400); RDW Coefficient of Variation 13.3 % (11.5-14.5); RDW Standard Deviation 43.8 fL (36.4-46.3); Red Blood Count 4.06 M/uL (4.2-5.4); White Blood Count 7.78 K/uL (4.8-10.8)
[2020-06-21] MEDS: levETIRAcetam 500 MG TAB PO SCH (07:59)
[2020-06-21 08:14] LABS: INR 1.1 (0.9-1.1); Prothrombin Time 11.1 Seconds (9.0-12.0)
[2020-06-21 08:26] LABS: Albumin Level 2.7 gm/dl (3.4-5.0); BUN Creatinine Ratio 9.4 (10-20); Calcium 9.1 mg/dl (8.5-10.1); Creatinine Clr Calc Pharmacy 182.7 ml/min; Est GFR (African American) 143.3; Est GFR (Non-African American) 123.6; Potassium 3.6 mmol/L (3.5-5.1)
[2020-06-21 08:29] LABS: Albumin Globulin Ratio 0.7 (0.9-2); Bilirubin,Total 1.1 mg/dl (0.2-1); Globulin 3.9 gm/dl (2.5-4.0); Total Protein 6.6 gm/dl (6.4-8.2)
[2020-06-21] MEDS: oxyCODONE HCL IR 5 MG TAB (IMMEDIATE RELEASE) PO PRN (10:34)
--- NOTE | 2020-06-21 10:58 | Hospitalist Progress Note ---
Date of Service June 21, 2020 Assessment & Plan (1) Unintentional Tylenol overdose: ASSESSMENT AND PLAN: This is a 44-year-old female who presents with right upper quadrant abdominal pain and also elevated transaminitis. 1. Unintentional Tylenol Overdose - received N Acetylcysteine protocol - RUQ pain, LFTs improving - GI consulted - no Tylenol for now ff up with PCP in 1 week - Ct abdomen showing some periportal mesenteric and retrocaval lymphadenopathy 2. Metastatic adenocarcinoma of the lung, mets to the brain, recently had craniotomy and brain mass resection. Plan to have PET scan soon and plan for chemo. - patient reports Oxycodone giving adequate relief of chronic R upper back pain continue to monitor - Oxycodone will be prescribed 3. 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 History of breast cancer, bilateral mastectomy. 5. Deep venous thrombosis prophylaxis, sequential compression devices for now. Encouraged to ambulate frequently. 6. Disposition: - d/c home ff up with PCP in 1 week plan of care discussed with patient in detail and at length all questions answered she is understanding, agreeable, comfortable with plan of care Admission and Anticipated Discharge Date Admission Date: June 19, 2020 Subjective ff up for tylenol toxicity seen resting in bed, sitting up comfortable, in good spirits states she feels much better overall pain well controlled with oxycodone no abdominal pain, nausea, (+) BMs no confusion no chest pain, dyspnea, palpitations, dizziness ambulating with no problems no other symptoms states she is ready and would like to discharge today Review of Systems Review of Systems: All systems reviewed & are unremarkable except as noted in Subjective Physical Exam Physical Exam: General- oriented x 2, not in distress, speaks in sentences with no effort or accessory muscle use Eyes- anicteric Neck- no JVD Lungs- clear breath sounds bilaterally Heart- normal rate, regular rhythm; no murmurs Abdomen- normal bowel sounds, nondistended, soft, nontender Extremities- no pretibial edema, no calf tenderness Neuro- alert, oriented x 3; no gross focal neurologic deficits Skin- warm & dry Results & Data Results & Data ([facility]) Vital Signs (Past 12 Hours) Vital Signs Temp Pulse Pulse Resp BP Pulse Ox 06/21/20 10:05 37.1 C 93 H 18 106/69 93 06/21/20 08:00 37.1 C 91 H 93 H 18 106/69 93 06/21/20 00:13 89 Laboratory Results Laboratory Results - last 24 hr 06/21/20 06/21/20 06/21/20 07:31 07:31 07:31 WBC 7.78 RBC 4.06 L Hgb 12.3 Hct 36.3 L MCV 89.4 MCH 30.3 MCHC 33.9 RDW Std Deviation 43.8 RDW Coeff of Suri 13.3 Plt Count 189 MPV 9.2 PT 11.1 INR 1.1 Sodium 138 Potassium 3.6 Chloride 106 Carbon Dioxide 24 Anion Gap 8.0 BUN 4 L Creatinine 0.44 L Est Cr Clr Drug Dosing 182.7 Est GFR ( Amer) 143.3 Est GFR (Non-Af Amer) 123.6 BUN/Creatinine Ratio 9.4 L Glucose 81 Calcium 9.1 Total Bilirubin 1.1 H AST 46 H ALT 267 H Alkaline Phosphatase 286 H Total Protein 6.6 Albumin 2.7 L Globulin 3.9 Albumin/Globulin Ratio 0.7 L (1) Unintentional Tylenol overdose Encounter type: initial encounter Qualified Code(s): T39.1X1A - Poisoning by 4-Aminophenol derivatives, accidental (unintentional), initial encounter
--- NOTE | 2020-06-21 13:03 | Discharge Summary ---
Date of Service June 21, 2020 Admission HPI Per Admitting Provider CHIEF COMPLAINT: Abdominal pain. HISTORY OF PRESENT ILLNESS: This is a 44-year-old female with past medical history significant for breast cancer status post bilateral mastectomy 13 years ago, history of recent diagnosis of adenocarcinoma of the lung and brain mets, partial complex seizures, comes with abdominal pain. The patient was recently admitted to [facility]. She has history of poorly differentiated adenocarcinoma of the breast with mastectomy and lymph node dissection in 04/2007, status post chemo with Cytoxan and Adriamycin completed in 2007. Recently quit smoking [id number] history, as per the Epic admitted to [facility] in 04/2019 for left sided droop, right lung mass and multiple intracranial metastatic lesions with significant midline shift. In addition, she was having left hand weakness and partial seizures, lung biopsy result and adenocarcinoma and the patient had Mediport for prechemotherapy, started on Keppra, Decadron omeprazole and she was discharged on 05/04/2020. The patient was again admitted to [place] on 06/01/2020, because of relapse of partial seizures and worsening left facial droop and frontal headache with nausea and she had right frontal craniotomy for brain tumor resection. The patient tolerated the procedure well with no complication and the patient was discharged home with followup appointments. The patient says since going home, she is having lot of pain. She was taking Tylenol as she didn't wanted narcotic pain medications and she also has abdominal pain and back pain and also stated her right knee twisted developed pain so was r taking Tylenol around the clock .And tonight she was having severe pain in the back and also right upper quadrant pain and clenched jaw, she was worried about she was having seizures and came to the hospital. In the ER, workup showed elevated LFTs, thought to be from Tylenol toxicity and she was started on acetylcysteine by the ER. The patient is now agreeable to take narcotic pain medication, resting comfortably. She received fentanyl and oxycodone in the ER. She has some chronic cough. No fever, no chills, no chest pain, no nausea, no vomiting. No diarrhea or constipation or blood in the stools or black stools. She has some headache. No dizziness, no blurred vision, no earache, no runny nose, no sore throat, no loss of sense of smell or taste. Appetite is not that great. ALLERGIES: PENICILLINS. Admission Exam Per Admitting Provider GENERAL: The patient is of moderate build, not in acute distress. VITAL SIGNS: Temperature 36.3, pulse 86, respiratory rate 22, blood pressure 137/84, oxygen 95% on room air. HEENT: Pupils equal, round, reactive to light. Oral mucosa moist. NECK: No neck masses seen. CARDIOVASCULAR: S1, S2, regular rate and rhythm, no murmur, no gallop. RESPIRATORY SYSTEM: Normal AP diameter. No accessory muscle use. No wheezing, no crackles. ABDOMEN: Soft, bowel sounds present. Mild right upper quadrant tenderness present. Mild guarding, no rigidity. No distention. CENTRAL NERVOUS SYSTEM: Cranial nerves II-XII grossly intact, nonfocal. EXTREMITIES: No edema, no erythema. Principal Diagnosis TYLENOL TOXICITY Discharge Exam General- oriented x 2, not in distress, speaks in sentences with no effort or accessory muscle use Eyes- anicteric Neck- no JVD Lungs- clear breath sounds bilaterally Heart- normal rate, regular rhythm; no murmurs Abdomen- normal bowel sounds, nondistended, soft, nontender Extremities- no pretibial edema, no calf tenderness Neuro- alert, oriented x 3; no gross focal neurologic deficits Skin- warm & dry Discharge Data Allergies Allergy/AdvReac Type Severity Reaction Status Date / Time Penicillins Allergy Intermediate SWELLS Verified 06/19/20 05:29 Consultations 06/19/20 08:12 Consult Case Management - Discharge Planning Routine Consult Gastroenterology Routine Ordered Studies 06/19/20 07:06 CT abd pelvis wo con Urgent FINDINGS: Lower chest: There are lingular and basilar atelectatic changes. There are nonspecific tiny centrilobular pulmonary nodules. There is a small pericardial effusion Liver: There is hepatic steatosis. No focal masses are visualized in this nonc ontrast study Gallbladder: Surgically absent Spleen: Normal in size and attenuation. Pancreas: Unremarkable. Adrenal glands: There is mild enlargement of the left adrenal gland with slightly indistinct margins. Kidneys: No renal, ureteral, or bladder calculi are visualized. Bowel: There are no transition zones indicate bowel obstruction. There is no evidence of acute diverticulitis. The appendix appears normal. Peritoneum: There is no intraperitoneal free air or abdominal ascites. Vasculature: The abdominal aorta is normal in course and caliber. Adenopathy: There is mild aortocaval, portal and mesenteric lymphadenopathy. Pelvic viscera: The uterus appears surgically absent Skeletal structures: No destructive osseous lesions are seen. IMPRESSION: 1. Mild hepatic steatosis 2. No evidence of bowel obstruction. No evidence of free air 3. Normal appendix. No evidence of acute diverticulitis 4. Mild periportal, aortocaval, and mesenteric lymphadenopathy 5. Subtle nonspecific centrilobular pulmonary nodules 6. Mild left adrenal enlargement 06/19/20 14:30 US abdomen limited Routine FINDINGS: Unremarkable pancreas. Increased echogenicity of the liver. No hepatic mass or marginal nodularity.] Discectomy. Common bile duct is normal, 5 mm. Unremarkable right kidney without hydronephrosis. IMPRESSION: 1. Cholecystectomy without biliary ductal dilation. 2. Hepatic steatosis. Hospital Course (1) Unintentional Tylenol overdose: ASSESSMENT AND PLAN: This is a 44-year-old female who presents with right upper quadrant abdominal pain and also elevated transaminitis. 1. Unintentional Tylenol Overdose - patient trying to hold off on taking any additional pain medications aside f rom Tylenol - received N Acetylcysteine protocol - RUQ pain, LFTs improving - GI consulted - no Tylenol for now ff up with PCP in 1 week repeat LFTs on ff up with PCP next week - Ct abdomen showing some periportal mesenteric and retrocaval lymphadenopathy 2. Metastatic adenocarcinoma of the lung, mets to the brain, recently had craniotomy and brain mass resection. Plan to have PET scan soon and plan for chemo. - patient reports Oxycodone giving adequate relief of chronic R upper back pain continue to monitor - Oxycodone will be prescribed ff up with PCP and Oncologist 3. 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 History of breast cancer, bilateral mastectomy. 5. Deep venous thrombosis prophylaxis, sequential compression devices for now. Encouraged to ambulate frequently. 6. Disposition: - d/c home ff up with PCP in 1 week plan of care discussed with patient in detail and at length all questions answered she is understanding, agreeable, comfortable with plan of care Total Time Total Time Spent Total Time Spent (In Minutes): 40 minutes Discharge Plan Discharge Items Patient Disposition: Home - Self-Care Reason For Visit: ABDOMINAL PAIN Discharge Diagnosis: TYLENOL TOXICITY Activity: Resume your previous activity Activity Comment: GRADUALLY TOLERATED Lifting: Wait until after follow-up appointment Exercise/Sports: Wait until after follow-up appointment Driving/Machine Use: NO DRIVING Non-emergency contact: Primary Care Provider Call non-emergency contact if: you have any medication questions, your symptoms worsen, your pain is not controlled, your pain is worsening, your pain is unusual for you, your pain is concerning for you and you have a fever Follow-up/Referrals: Jasiel Fritz DO [Physician] - (Date & Time 06/25/2020 1:40 PMProviAragon [facility] ) Paco Liriano MD [Physician] - (Date & Time 06/25/2020 10:00 AMPkeerthi Liriano [facility] Lilly Fox MD [Hospitalist] - (Date & Time 07/02/2020 9:45 AMPkeerthi Fox [facility] Hematology/Oncology [facility] ) Diet: Heart Healthy Addtl Attending Provider Instructions: YOUR NEW MEDICATION IS OXYCODONE- for pain. DO NOT TAKE TYLENOL. CALL PRIMARY CARE PHYSICIAN OR RETURN TO THE ER IMMEDIATELY IF WITH RECURRENCE/WORSENING OF SYMPTOMS. FOLLOW UP WITH PRIMARY CARE PHYSICIAN AT [facility] ON THURSDAY. THE [facility] WILL BE CALLING YOU SOON FOR THE APPOINTMENT SCHEDULE. FOLLOW UP WITH DR. FOX ON THURSDAY SCHEDULED. Pending Studies at Discharge: No Stand-Alone Forms: My [facility], Smoking Cessation Medications and DC Order Prescriptions: New oxycodone 5 mg Tablet 5 mg PO Q4H PRN (Reason: pain) Qty: 20 RF: 0 Continued omeprazole 20 mg Capsule,Delayed Release(Dr/Ec) 20 mg PO DAILY PRN (Reason: Heartburn) RF: 0 levetiracetam [Keppra] 1,000 mg Tablet 1,000 mg PO BID RF: 0 Discharge Orders: Discharge Order (Routine); Ordered 06/21/20 Ordered By: Dread Mcgill Admission Data Admit Date/Time: 06/19/20 07:03 Attending Provider: Dread Mcgill Admit Provider: Palepu,Peter P. Primary Care Provider: Mark Phelps Other Providers: Micaela Curtis ; Lilly Albright Other Interventions: Discharge Summary Assessment (RN) Last Done: 06/21/20 11:49
[2020-06-23 14:26] LABS: Alpha 1 Antitrypsin 135 mg/dL (83-199); Anti Nuclear Antibody Screen POSITIVE (NEGATIVE); CMV IgM Antibody <30.00 AU/mL; Ceruloplasmin 36 mg/dL (18-53); Hepatitis A Antibody IgM NON-REACTIVE (NON-REACTIVE); Hepatitis B Core Antibody IgM NON-REACTIVE (NON-REACTIVE); Smooth Muscle Antibody NEGATIVE (NEGATIVE)
[2020-06-25 11:28] LABS: ANA Pattern Cytoplasmic; ANA Titer 1:40 titer
--- NOTE | 2020-07-04 08:06 | Coding Query ---
CODING QUERY To promote full compliance with coding requirements relating to patient care, provider participation is requested in all cases of carbide powder processor uncertainty. Please assist us with the question(s) below: Coding Question(s): The chart and Discharge Summary document elevated transaminitis and unintentional Tylenol overdose and the GI Consultation and the 06/21/20 GI Progress Note document Hepatitis and document, "LFTs pattern most likely from unintentional Tylenol overuse. She has not had signs overt liver failure, as she a normal INR and is not encephalopathic. Abd remains soft. She completed NAC protocol. LFTs continue to trend down. Neg Hep C and Hep B surface antigen" and "- Await final acute hepatitis panel, EBV, HSV, CMV and serologies - Would continue to monitor LFTs, INR, BMP after discharge to ensure they normalize". Hepatitis is not documented on the Discharge Summary. Please specify below, in your clinical opinion, regarding Hepatitis. (x ) Likely Acute Hepatitis due to unintentional Tylenol overdose ( ) Likely Unspecified Hepatitis due to unintentional Tylenol overdose ( ) Likely Chronic Hepatitis due to unintentional Tylenol overdose ( ) Likely Other Hepatitis. Please Specify ( ) No Hepatitis, only elevated LFT Physician's Response(s): Thank you Ryann Bolivar Principal Diagnosis: "that condition established after study, to be chiefly responsible for occasioning the admission of the patient to the hospital for care." Co-Existing Principal Diagnosis: "when two or more diagnoses equally meet the criteria for principal diagnosis as determined by the circumstances of admission, diagnostic work up, and/or therapy provided, and the Alphabetic Index, Tabular List, or another coding guideline does not provide sequencing direction, any one of the diagnoses may be sequenced first." "When the physician has documented what appears to be a current diagnosis in the body of the record, but has not included the diagnosis in the final diagnostic statement, the physician should be asked whether the diagnosis should be added." (Source Coding [facility] 2 QTR90. p3-4) ASMITA
== END 2020-06-21 12:05 | disposition home or self-care (01) | DRG 917 ==
LOC: ED 04:12 → 2W 07:03 → SUATTDRO 07:03 → 2W 07:34

== ENCOUNTER 2020-07-02 01:40 | Observation (INO) ==
[2020-07-02] MEDS ORDERED: SODIUM CHLORIDE 0.9% 1000ML 1,000 ML IV ONE (01:55)
--- NOTE | 2020-07-02 02:01 | Emergency Department Note ---
History of Present Illness General Chief complaint: Throat Pain Stated complaint: HARD TIME SWALLOWING,PAIN URQ,LIGHT HEADED Time Seen by Provider: 07/02/20 01:48 History of Present Illness Maximum Pain Intensity: 6 This 44-year-old metastatic cancer patient presents to the ER complaining of dysphagia Location: Throat Quality: Hard to swallow Severity: Moderate Duration: Today Timing: Today Context: Patient was concerned and came in Modifying factors: better with nothing; worse with swallowing Patient denies any food soaps or detergents or medications. She sees [facility] oncology. She has metastatic carcinoma. She has not started chemotherapy. Patient denies fever, chills, flulike illness. She took a pain pill tonight for her cancer pain and feels slightly loopy. Home Medications Medication Instructions Recorded Confirmed Type omeprazole 20 mg PO DAILY PRN 06/01/20 07/02/20 History levetiracetam 1,000 mg PO BID 07/02/20 07/02/20 History oxycodone 5 mg PO Q6 PRN 07/02/20 07/02/20 History Allergies Allergy/AdvReac Type Severity Reaction Status Date / Time Penicillins Allergy Intermediate SWELLS Verified 07/02/20 02:16 Past Med/Surg History Medical History Cancer related pain No acute medical problems Surgical History History of cholecystectomy Social History Smoking Status: Former smoker Second Hand Exposure: No; Hx Alcohol Use: No Hx Substance Use: No Preferred Language: Filipino Communication Ability: Effective Web Services Manager Required: No Beliefs That Will Affect Care: None marital status: Current Living Situation: Family How many Children do You have: 2 Feels Safe at Home: Yes Assistive Devices: Glasses Review of Systems A total of 10 systems reviewed and were otherwise negative Physical Exam Vital Signs Vital Signs - 24 hr 07/02/20 01:44 07/02/20 02:02 07/02/20 02:07 Temperature 36.4 C L Temperature Source Temporal Artery Scan Pulse Rate 123 H 93 H Pulse Rate from SpO2 Sensor 91 H Respiratory Rate 20 9 L Respiratory Depth Normal Blood Pressure 134/82 120/77 Blood Pressure Mean 99 91 Pulse Oximetry 97 99 Oxygen Delivery Method Room Air Room Air Sepsis Recent Fever Within 48 Hours No Sepsis New/Unexplained Change in Mental Status N/A Sepsis Action Taken by Nursing No Action Required 07/02/20 02:13 07/02/20 02:20 07/02/20 02:30 Temperature Temperature Source Pulse Rate 84 83 Pulse Rate from SpO2 Sensor 86 90 83 Respiratory Rate 19 Respiratory Depth Blood Pressure 116/84 Blood Pressure Mean 94 Pulse Oximetry 97 98 97 Oxygen Delivery Method Sepsis Recent Fever Within 48 Hours Sepsis New/Unexplained Change in Mental Status Sepsis Action Taken by Nursing 07/02/20 03:00 07/02/20 03:30 Temperature Temperature Source Pulse Rate 73 89 Pulse Rate from SpO2 Sensor Respiratory Rate 17 24 Respiratory Depth Blood Pressure 132/89 110/73 Blood Pressure Mean 103 85 Pulse Oximetry 96 93 Oxygen Delivery Method Sepsis Recent Fever Within 48 Hours Sepsis New/Unexplained Change in Mental Status Sepsis Action Taken by Nursing VITALS: Vitals are noted on the nurse's note and reviewed by myself. Vital signs mildly tachycardic GENERAL: White female speaking in full sentences, in no acute distress, nondiaphoretic, well-developed well-nourished. SKIN: The skin was without rashes, erythema, edema, or bruising. There is no tenting of the skin. Capillary reflex less than 2 seconds. HEAD: Normocephalic atraumatic. EARS: External auditory canals clear, tympanic membranes pearly calvert without erythema or effusion bilaterally. EYES: Pupils equal round and reactive to light and accommodation. Conjunctivae without injection, sclerae without icterus. Extraocular movements intact. NOSE: Patent, turbinates without inflammation or discharge. No sinus tenderness. MOUTH: Mucous membranes moist. Pharynx without erythema or exudate. Uvula midline. Airway patent. Tongue does not deviate. NECK: Supple without nuchal rigidity. No lymphadenopathy. No thyromegaly. Cervical spine is nontender. No JVD. HEART: Mildly tachycardic rate and rhythm LUNGS: Clear to auscultation bilaterally without wheezes, rales or rhonchi. No retractions or accessory muscle use. ABDOMEN: Positive bowel sounds x 4. Normal tympanic percussion. Soft, nontender, without masses or organomegaly. Witt sign negative. No guarding or rebound tenderness. No CVA tenderness MUSCULOSKELETAL: No muscle atrophy, erythema, or edema noted. NEURO: Patient was alert and oriented to person place and time. Normal sensation to light and sharp touch. No focal neurological deficits. Course Administered Medications Discontinued Medications Sodium Chloride (Nss 1000ml) 1,000 mls @ 999 mls/hr IV .Q1H1M ONE Stop: 07/02/20 02:55 Last Infusion: 07/02/20 03:03 Dose: 0 mls/hr Documented by: [id number] Admin: 07/02/20 02:04 Dose: 999 mls/hr Documented by: [id number] Lorazepam (Ativan) 0.5 mg in 1 mls @ 1 mls/min IV NOW STA Stop: 07/02/20 04:07 Last Admin: 07/02/20 04:12 Dose: 1 mls/min Documented by: [id number] Ioversol (Ioversol 100ml) 100 ml IV ONCE ONE Stop: 07/02/20 03:21 Last Admin: 07/02/20 03:20 Dose: 92 ml Documented by: [id number] Medical Decision Making Medical Records Attestation: I reviewed the patient's medical records. Home Medications Current Medication List: was personally reviewed by me Laboratory Data Attestation: I reviewed the patient's lab results. Result diagrams: 07/02/20 02:01 07/02/20 02:01 Lab Results 07/02/20 07/02/20 Range/Units 02:01 02:01 WBC 9.55 (4.8-10.8) K/uL RBC 4.90 (4.2-5.4) M/uL Hgb 14.9 (12.0-16.0) g/dL Hct 42.5 (37-47) % MCV 86.7 (80-100) fL MCH 30.4 (25-34) pg MCHC 35.1 (32-36) g/dL RDW Std Deviation 40.4 (36.4-46.3) fL RDW Coeff of Suri 12.6 (11.5-14.5) % Plt Count 304 (130-400) K/uL MPV 9.7 (7.4-10.4) fL Immature Gran % (Auto) 1.2 % Neut % (Auto) 73.3 % Lymph % (Auto) 15.9 % Snyder % (Auto) 7.5 % Eos % (Auto) 1.7 % Baso % (Auto) 0.4 % Neut # (Auto) 7.00 H (1.4-6.5) K/uL Lymph # (Auto) 1.52 (1.2-3.4) K/uL Snyder # (Auto) 0.72 H (0.11-0.59) K/uL Eos # (Auto) 0.16 (0-0.5) K/uL Baso # (Auto) 0.04 (0-0.2) K/uL Immature Gran # (Auto) 0.11 H (0.00-0.02) K/uL Sodium 137 (136-145) mmol/L Potassium 3.2 L (3.5-5.1) mmol/L Chloride 101 (98-107) mmol/L Carbon Dioxide 23 (21-32) mmol/L Anion Gap 13.0 H (3-11) BUN 3 L (7-18) mg/dl Creatinine 0.51 L (0.6-1.2) mg/dl Est Cr Clr Drug Dosing 159.2 ml/min Est GFR ( Amer) 136.5 Est GFR (Non-Af Amer) 117.8 BUN/Creatinine Ratio 6.7 L (10-20) Glucose 102 H (70-99) mg/dl Calcium 9.5 (8.5-10.1) mg/dl Total Bilirubin 0.8 (0.2-1) mg/dl AST 26 (15-37) U/L ALT 30 (12-78) U/L Alkaline Phosphatase 177 H (45-117) U/L Total Protein 7.9 (6.4-8.2) gm/dl Albumin 3.4 (3.4-5.0) gm/dl Globulin 4.5 H (2.5-4.0) gm/dl Albumin/Globulin Ratio 0.8 L (0.9-2) Imaging Data Attestation: I personally reviewed and interpreted this imaging study as follows: MDM Narrative Prior records/ancillary studies reviewed. Triage Nursing notes reviewed. Additional history obtained from . The patient's history was concerning for dysphagia Differential diagnosis: Etiologies such as metastatic carcinoma, esophagitis, infection, viral syndrome, tonsillitis, streptococcal pharyngitis, mononucleosis, peritonsillar abscess, retropharyngeal abscess, otitis, pneumonia, influenza, as well as others were entertained. ER treatment provided: IV fluids, patient declines any other medications On reassessment the patient felt better. Diagnostics interpreted by me: The labs revealed no worrisome leukocytosis. Improved LFTs from prior visit Imaging studies: CT NECK: Left cervical lymphadenopathy at II, III, IV, and V levels, measuring up to 1 cm in short axis. Post right parietotemporal craniotomy and there is underlying extra-axial collection measuring 7 mm thick. Right upper lobe lung mass is partially imaged. Pretracheal mass is also parti ally imaged. Multiple small mediastinal lymph nodes are noted. Emphysema. Airway is patent aside for a closed glottis during exam. Upper esophagus is unremarkable. Normal epiglottis. Radiologist: Leonardo Sewell MD Consultation: A consultation was placed with hospitalist, Dr. Chen. Case was reviewed. Patient is requesting admission. Medicine will evaluate. This appears to be consistent with worsening cancer pain. Patient is requesting admission. Medicine was consulted. She will be evaluated for admission. CT was reviewed with the patient. By the evaluation outlined above emergent etiologies such as peritonsillar abscess, retropharyngeal abscess, otitis, pneumonia, meningitis, urinary tract infection, sepsis, bacteremia, as well as others were deemed relatively unlikely. The pt informed about the findings as listed above. All questions were answered and pleased with the treatment. The chart was completed utilizing [employer] Speech voice recognition software. Grammatical errors, random word insertions, pronoun errors, and incomplete sentences are an occassional consequence of this system due to software limitations, ambient noise, and hardware issues. Any formal questions or concerns about the content, text, or information contained within the body of this dictation should be directly addressed to the physician language assistant for clarification. Impression & Plan Cancer related pain Discharge Plan Visit Data Chief Complaint: Throat Pain Stated Complaint: HARD TIME SWALLOWING,PAIN URQ,LIGHT HEADED ED Provider: Loy Padilla ED Midlevel Provider: Alcira Bronw Discharge Problem: Cancer related pain Patient Disposition: Being Evaluated by Hospitalist Condition: Good Forms Stand Alone Forms: My [facility] [employer] Prescriptions Prescriptions: No Action omeprazole 20 mg Capsule,Delayed Release(Dr/Ec) 20 mg PO DAILY PRN (Reason: Heartburn) RF: 0 levetiracetam 500 mg tablet 1,000 mg PO BID RF: 0 oxycodone 5 mg tablet 5 mg PO Q6 PRN (Reason: pain) RF: 0 Referrals Referrals: Mark Phelps [Primary Care Provider] -
[2020-07-02 02:14] LABS: Basophils # (auto) 0.04 K/uL (0-0.2); Basophils % (auto) 0.4 %; Eosinophils # (auto) 0.16 K/uL (0-0.5); Eosinophils % (auto) 1.7 %; Hematocrit (blood only) 42.5 % (37-47); Hemoglobin 14.9 g/dL (12.0-16.0); Immature Granulocytes # (auto) 0.11 K/uL (0.00-0.02); Immature Granulocytes % (auto) 1.2 %; Lymphocytes # (auto) 1.52 K/uL (1.2-3.4); Lymphocytes % (auto) 15.9 %; Mean Corpuscular Hemoglobin 30.4 pg (25-34); Mean Corpuscular Hgb Conc 35.1 g/dL (32-36); Mean Corpuscular Volume 86.7 fL (80-100); Mean Platelet Volume 9.7 fL (7.4-10.4); Monocytes # (auto) 0.72 K/uL (0.11-0.59); Monocytes % (auto) 7.5 %; Neutrophils % (auto) 73.3 %; Platelet Count 304 K/uL (130-400); RDW Coefficient of Variation 12.6 % (11.5-14.5); RDW Standard Deviation 40.4 fL (36.4-46.3); White Blood Count 9.55 K/uL (4.8-10.8)
[2020-07-02 02:32] LABS: Albumin Level 3.4 gm/dl (3.4-5.0); BUN Creatinine Ratio 6.7 (10-20); Calcium 9.5 mg/dl (8.5-10.1); Creatinine Clr Calc Pharmacy 159.2 ml/min; Est GFR (African American) 136.5; Est GFR (Non-African American) 117.8; Potassium 3.2 mmol/L (3.5-5.1)
[2020-07-02 02:34] LABS: Albumin Globulin Ratio 0.8 (0.9-2); Bilirubin,Total 0.8 mg/dl (0.2-1); Globulin 4.5 gm/dl (2.5-4.0); Total Protein 7.9 gm/dl (6.4-8.2)
[2020-07-02] MEDS ORDERED: IOVERSOL 100ml IV ONE (03:20)
[2020-07-02] MEDS ORDERED: LORazepam 0.5 MG/1 ML VIAL IV STA (04:06)
[2020-07-02] MEDS ORDERED: ACETAMINOPHEN 325 MG TAB PO PRN (05:56)
[2020-07-02] MEDS ORDERED: POLYETHYLENE (MIRALAX) 17 GM PACK PO PRN (05:56)
[2020-07-02] MEDS ORDERED: NITROGLYCERIN SL 0.4 MG/TAB TAB SL PRN (05:56)
[2020-07-02] MEDS ORDERED: ONDANSETRON INJ 2 MG/ML 2 ML VIAL IV PRN (05:56)
[2020-07-02] MEDS ORDERED: MoRPHine SULFATE 4 MG/ML 1 ML CARP\\VIAL IV PRN (05:56)
[2020-07-02] MEDS ORDERED: oxyCODONE HCL IR 5 MG TAB (IMMEDIATE RELEASE) PO PRN (06:06)
[2020-07-02] MEDS ORDERED: INFLUENZA ADMINISTRATION CHARGE ONE (06:21)
[2020-07-02] MEDS ORDERED: INFLUENZA VIRUS QUAD VACCINE 0.5 ML SYR IM ONE (06:21)
[2020-07-02] MEDS: D5W AND NSS 1,000 ML IV SCH ×3 (06:22→22:08)
--- NOTE | 2020-07-02 08:00 | Pain Management Consultation ---
Date of Consultation July 02, 2020 Assessment & Plan (1) Cancer related pain: * Oxycodone has been changed to 5-10mg x 4 hours PRN pain * IV Morphine 3mg x 3 hours PRN breakthrough pain * I have initiated the patient on Cymbalta to further decrease pain burden. * We have discussed possibly trying Fentanyl patch but she refused as she had Fentanyl before and it made her very "out of it". Could further consider OxyContin if she needs a long acting opioid to control pain. * Will follow up with the patient tomorrow to check on progress. History of Present Illness Reason for Consultation: Chest pain Attending Physician: Abel Stroud, History of Present Illness Mrs. 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 She did have a right sided craniotomy recently for tumor removal. Patient presented to the Emergency Department this morning for difficulty swallowing and right sided chest pain. Difficulty swallowing is thought to be from tumor growth. Patient has not yet started chemotherapy. The appointment has been cancelled a few times due to wea ther and today because of admission. Pain is described as a deep sharp pain that is located under the right breast and radiates to the right scapula. No aggravating factors. Pain is rated 7/10 currently. She has been prescribed Oxycodone 5mg x 6 hours which she has been taking over the past 2 weeks. She no longer finds the Oxycodone to be effective towards diminishing her pain. She was taking Tylenol prior which resulted in accidental Tylenol overdose. No SOB, cough, wheezing, nausea, vomiting, abdominal pain, flank pain. Pain Assessment Full Body Front + Back: 1. 2. [facility] Combined Pain Scale: 7-Severe - Pain prevents productive activity. Impossible to tolerate. Allergies Allergy/AdvReac Type Severity Reaction Status Date / Time Penicillins Allergy Intermediate SWELLS Verified 07/02/20 02:16 Home Medications Medication Instructions Recorded Confirmed Type omeprazole 20 mg PO DAILY PRN 06/01/20 07/02/20 History levetiracetam 1,000 mg PO BID 07/02/20 07/02/20 History oxycodone 5 mg PO Q6 PRN 07/02/20 07/02/20 History Patient History Medical History (Updated 07/02/20 @ 07:59 by Rosa Jackson PA-C) Cancer related pain Surgical History History of cholecystectomy Social History Smoking Status: Former smoker Second Hand Exposure: No; Hx Alcohol Use: No Hx Substance Use: No Preferred Language: Burmese Communication Ability: Effective Scada Engineer Required: No Beliefs That Will Affect Care: None marital status: Current Living Situation: Spouse How many Children do You have: 2 Feels Safe at Home: Yes Assistive Devices: Glasses Physical Exam Physical Exam: GENERAL: This is a 44 year old female. She is anxious and crying during our discussion. HEAD/FACE: Normocephalic and atraumatic. EYES: No drainage or conjunctival injection. ENT: Nose without bleeding or discharge. Oral mucosa moist. NECK: Full ROM without apparent pain. No swelling or masses noted. RESPIRATORY: Patient with unlabored breathing. No signs of respiratory distress. CHEST/AXILLA: Chest movement symmetrical. No deformities noted. Mild tenderness under the right breast. No increased pain with AP chest compression. No tenderness of the intercostal nerve. No scapular tenderness. ABDOMEN/GI: No distension BACK: Moves without difficulty SKIN: [place], warm and dry. No rash noted. MS/EXTREMITY: No swelling, no deformities. Moving extremities appropriately. NEURO: Alert and appears oriented. Speech is fluent. Cranial Nerves are grossly intact. Results ([facility]) Diagnostic Review CT Findings: CT soft tissue neck w con HISTORY: Dysphagia, metastatic carcinoma TECHNIQUE: Multiaxial CT images of the neck were performed following the intravenous administration of 92 cc of Optiray 320. COMPARISON STUDY: Cervical spine CT 05/11/2020. FINDINGS: Postoperative changes consistent with an interval right-sided craniotomy. Vasogenic edema within the right cerebral hemisphere appears to have improved. There is a 7 mm extra-axial low density fluid collection deep to the craniotomy flap. This could be due to postoperative change. The orbits are unremarkable. The epiglottis and prevertebral soft tissues are normal in th ickness. The thyroid gland enhances normally. Mediastinal lymphadenopathy and a precarinal mass/lymph node are partially visualized. The precarinal mass measures up to 3.4 cm. There is also a partially visualized right upper lobe mass measuring 4.2 cm. Emphysema. No suspicious lytic or blastic osseous lesions. The paranasal sinuses and mastoid air cells are clear. The parotid and submandibular glands are symmetric. The major cervical vessels enhance normally. There is left cervical, supraclavicular, subpectoral, left axillary lymphadenopathy. Dominant left axillary lymph node measures 2.4 x 1.2 cm. Dominant left cervical lymph node within the posterior cervical chain on image 249 measures 1.5 x 1.0 cm. These are similar to the prior study. The airway remains patent. There is as orbits are unremarkable. IMPRESSION: 1. Persistent left cervical, subpectoral, left axillary lymphadenopathy. 2. Mediastinal lymphadenopathy/mass and the right upper lung mass are partially visualized on this study. 3. Emphysema. 4. Status post right-sided craniotomy. Vasogenic edema within the right cerebral hemisphere appears to have improved. There is a 7 mm extra-axial low density fluid collection deep to the craniotomy flap. This favors postoperative change. ACT 112: Negative or not required by law. Electronically signed by: Obed Rashid M.D. 07/02/2020 8:[address] thoracic spine wo con CT DOSE: CLINICAL HISTORY: Thoracic spine pain. Pulmonary mass. TECHNIQUE: Helical images were acquired in the transverse plane. Sagittal and coronal reformatted images were acquired. A dose lowering technique was utilized adhering to the principles of ALARA. COMPARISON STUDY: None. FINDINGS: There is a partially visualized right upper lobe pulmonary mass. There is mediastinal and hilar lymphadenopathy. No paraspinal masses are visualized. There is enlarged lower left paraesophageal lymph node. No fractures or subluxations are visualized. No bony destructive lesions are evident. There are mild multilevel degenerative changes. IMPRESSION: 1. Mild multilevel degenerative change 2. No fractures or subluxations identified 3. No bony destructive lesions are visualized 4. Large right upper lobe pulmonary mass which extends through the fissure to involve the superior segment of the right upper lobe 5. Mediastinal and hilar lymphadenopathy ACT 112: Negative or not required by law. Electronically signed by: Axel Hook M.D. 05/11/2020 6:30 PM
--- NOTE | 2020-07-02 08:35 | History and Physical Report ---
DATE OF ADMISSION: 07/02/2020 CHIEF COMPLAINT: Cancer pain and also questionable dysphagia. HISTORY OF PRESENT ILLNESS: This is a 44-year-old female with past medical history significant for breast cancer, status post bilateral mastectomy 13 years ago, history of recent diagnosis of adenocarcinoma of the lung and brain mets, history of right frontal craniotomy for brain tumor resection, partial complex seizures. She was recently in the hospital for unintentional Tylenol toxicity and treated with n- acetylcysteine and discharged on oxycodone. The patient says the oxycodone is not holding the plan for long time. She is having severe pains.Today again she had right upper quadrant/right lower rib cage pain, which was not getting better, that is why she came to the ER. In the ER, she had an episode of not able to swallow. Soft tissue of neck was done preliminary report showing normal epiglottis, normal upper esophagus. The airway is patent. Pretracheal mass is also partially imaged. Multiple small mediastinal lymph nodes are noted. The patient is currently in the ER, received Ativan, currently resting comfortably but somewhat tearful. She is supposed to go see the heme/onc today and also she was supposed to get an A-port last week, but it was canceled because of the weather. She wants to get help with the pain medication and she was hoping that she will get the A-port while this admission and also see her heme/onc. Denies any headache, no blurred vision, no earache, no runny nose, no sore throat. She has some cough going on for the last 3 weeks, dry cough. With her cough, she will get some chest pain, no shortness of breath. No diarrhea or constipation, no blood in stools or black stools. Normal bladder movements. Ambulating okay at home. Afebrile. ALLERGIES: PENICILLIN. PAST MEDICAL HISTORY: As mentioned above. PAST SURGICAL HISTORY: Laparoscopic cholecystectomy, bilateral partial mastectomy, removal of ovarian cyst, tonsillectomy, adenoidectomy, total hysterectomy, craniotomy. MEDICATIONS: Currently, the patient is on Keppra 1000 mg p.o. b.i.d., oxycodone 5 mg p.o. q.6 hours p.r.n., omeprazole 20 mg p.o. daily p.r.n. FAMILY HISTORY: Significant for aunt has breast cancer. Paternal grandmother had breast cancer. Sister has breast cancer. Great uncle has bone cancer. Paternal grandmother has diabetes. Uncle has diabetes. SOCIAL HISTORY: , quit smoking in 04/2020, smoked on an average 1 pack a day for 23 years. Alcohol rarely. No drug use. REVIEW OF SYMPTOMS: As per HPI. Rest of review of systems negative. PHYSICAL EXAMINATION: GENERAL: The patient is of moderate build, not in acute distress. VITAL SIGNS: Temperature 36.4, pulse 79, respiratory rate 22, blood pressure 102/68, oxygen 95% on room air. HEENT: Pupils equal, round, reactive to light. Oral mucosa moist. NECK: No neck masses seen. CARDIOVASCULAR: S1, S2, regular rate and rhythm, no murmur, no gallop. RESPIRATORY SYSTEM: Normal AP diameter. No accessory muscle use. No wheezing, no crackles. ABDOMEN: Soft, bowel sounds present. Mild abdominal discomfort present in the right upper quadrant region. No guarding, no distention. CENTRAL NERVOUS SYSTEM: Cranial nerves II through XII grossly nonfocal. EXTREMITIES: No edema, no erythema. LABORATORY DATA: WBC 9.5, hemoglobin 14.9, hematocrit 42.5, platelets 304. Sodium 137, potassium 3.2, chloride 101, bicarbonate 23, BUN 3, creatinine 0.5, serum glucose 102, calcium 9.5, total bilirubin 0.8, AST 26, ALT 30, alkaline phosphatase 177. CT soft tissue neck shows right upper lobe mass is partially imaged. Pretracheal mass is also partially imaged. Multiple small mediastinal lymph nodes are also noted. Airways patent. Upper esophagus is unremarkable. Normal epiglottis. ASSESSMENT AND PLAN: This is a 44-year-old female who presents with cancer pain, question of dysphagia in the Emergency Room. 1. Cancer pain. The patient has metastatic adenocarcinoma of the lung, brain metastasis, status post craniotomy. Plan for chemotherapy, supposed to get A-port. We will consult hematology/oncology and also consult surgery for A-port placement. For pain control, we will consult pain management. 2. Question of dysphagia. The patient says she was taking forcing herself to swallow at home, but in the Emergency Room, she has difficulty swallowing ice. The CT of the neck was showing the pretracheal mass is partially imaged, but the airway is patent and upper esophagus was unremarkable. We will get speech evaluation. We will keep her n.p.o. until evaluated by speech. IV fluids. 3. History of complex partial seizure. Place her on IV Keppra until able to take p.o. 4. Gastroesophageal reflux disease. We will place her on IV Protonix until able to take p.o. 5. Deep venous thrombosis prophylaxis, sequential compression devices for now. 6. Disposition: Closely monitor in the med-telemetry. Level 1 full code. Expect to discharge home and follow up with her family doctor and her hematology/oncology. ASMITA
--- NOTE | 2020-07-02 08:37 | CT Scan Report ---
CT soft tissue neck w con HISTORY: Dysphagia, metastatic carcinoma TECHNIQUE: Multiaxial CT images of the neck were performed following the intravenous administration o f 92 cc of Optiray 320. COMPARISON STUDY: Cervical spine CT 05/11/2020. FINDINGS: Postoperative changes consistent with an interval right-sided craniotomy. Vasogenic edema w ithin the right cerebral hemisphere appears to have improved. There is a 7 mm extra-axial low density fluid collection deep to the craniotomy flap. This could be due to postoperative change. The orbits are unremarkable. The epiglottis and prevertebral soft tissues are normal in thickness. The thyroid g land enhances normally. Mediastinal lymphadenopathy and a precarinal mass/lymph node are partially vi sualized. The precarinal mass measures up to 3.4 cm. There is also a partially visualized right upper lobe mass measuring 4.2 cm. Emphysema. No suspicious lytic or blastic osseous lesions. The paranasal sinuses and mastoid air cells are clear. The parotid and submandibular glands are symmetric. The xiao or cervical vessels enhance normally. There is left cervical, supraclavicular, subpectoral, left axil jeffrey lymphadenopathy. Dominant left axillary lymph node measures 2.4 x 1.2 cm. Dominant left cervical lymph node within the posterior cervical chain on image 249 measures 1.5 x 1.0 cm. These are similar to the prior study. The airway remains patent. There is as orbits are unremarkable. IMPRESSION: 1. Persistent left cervical, subpectoral, left axillary lymphadenopathy. 2. Mediastinal lymphadenopathy/mass and the right upper lung mass are partially visualized on this st udy. 3. Emphysema. 4. Status post right-sided craniotomy. Vasogenic edema within the right cerebral hemisphere appears t o have improved. There is a 7 mm extra-axial low density fluid collection deep to the craniotomy flap . This favors postoperative change. ACT 112: Negative or not required by law. Electronically signed by: Obed Rashid M.D. 07/02/2020 8:36 AM
[2020-07-02] MEDS: levETIRAcetam 1,000 MG in 0.9 % SODIUM CHLORIDE 100 ML IV SCH ×2 (09:46→20:04)
[2020-07-02] MEDS: oxyCODONE HCL IR 5 MG TAB (IMMEDIATE RELEASE) PO PRN ×3 (09:55→20:03)
[2020-07-02] MEDS: DULoxetine HCL 30 MG CAP PO SCH (09:56)
--- NOTE | 2020-07-02 10:08 | Hospitalist Progress Note ---
Date of Service July 02, 2020 Assessment & Plan (1) Cancer related pain: (2) Unintentional Tylenol overdose: (3) Hepatitis: (4) Right knee sprain: ASSESSMENT AND PLAN: This is a 44-year-old female who presents with cancer pain, question of dysphagia in the Emergency Room. 1. Cancer pain. The patient has metastatic adenocarcinoma of the lung, brain metastasis, status post craniotomy. Plan for chemotherapy, supposed to get A- port. Hematology/Oncology to see and also consult surgery for A-port placement. For pain control-pain management has seen her. 2. Question of dysphagia. The patient says she was taking forcing herself to swallow at home, but in the Emergency Room, she has difficulty swallowing ice. The CT of the neck was showing the pretracheal mass is partially imaged, but the airway is patent and upper esophagus was unremarkable. We will get speech evaluation. We will keep her n.p.o. until evaluated by speech. IV fluids. 3. History of complex partial seizure. Place her on IV Keppra until able to take p.o. 4. Gastroesophageal reflux disease. We will place her on IV Protonix until able to take p.o. 5. Deep venous thrombosis prophylaxis, sequential compression devices for now. 6. Disposition: Closely monitor in the med-telemetry. Level 1 full code. Expect to discharge home and follow up with her family doctor and her Oncologist labs checked. ROS-No Headache, No Visual Changes, No Nausea, No Vomiting, No Fever, No Chills, No Neck Pain or Stiffness, +Chest Pain, No Palpitations, No SOB, No GREWAL, No Cough, No Sputum, No Wheezing, No Abdominal Pain, No Diarrhea, No Hematemesis, No Hemoptysis, No Unexpected Weight Loss, No Flank pain, No Melena, No Hematochezia, No Frequency, No Urgency, No Burning, No Hematuria, No Rashes, No Diaphoresis. Appetite is Normal Physical Exam Gen-AAO x 3, NAD, Afebrile, tearful Head-NCAT, EOMI, PERRLA, Anicteric Sclera, No Posterior Pharyngeal Erythema Neck-Supple, No JVD, No Thyromegaly, No Masses, No LAD, No Bruits Lungs-Clear to Auscultation Bilaterally, No Rales, No Rhonchi, No Wheezing, No Crepitus Chest-No S4, +S1, +S2, No S3, No Murmurs, No Rubs, No Gallops, No Ectopy Abdomen-Soft, Bowel Sounds Present, Non Tender, Non Distended, No Hepatomegaly, No Splenomegaly, No Palpable Masses, No Rebound, No Rigidity, No Guarding Musculoskeletal-Full Range of Motion Bilaterally, No CVAT Extremities-No Cyanosis, No Clubbing, No Edema Nuero-Cranial Nerves II-XII grossly intact, Motor WNL, DTRs WNL, Strength WNL, Non Focal Psych-Depressed Admission and Anticipated Discharge Date Admission Date: July 02, 2020 Results & Data Results & Data ([facility]) Vital Signs (Past 12 Hours) Vital Signs Temp Pulse Pulse Resp BP BP Pulse Ox 07/02/20 07:45 36.7 C 89 19 112/73 95 07/02/20 07:27 86 07/02/20 06:11 86 07/02/20 06:00 36.9 C 90 20 115/79 96 07/02/20 05:39 97 H 20 105/76 96 07/02/20 05:00 79 22 102/68 95 07/02/20 04:30 96 H 19 110/79 97 07/02/20 03:30 89 24 110/73 93 07/02/20 03:00 73 17 132/89 96 07/02/20 02:30 83 19 116/84 97 07/02/20 02:20 98 07/02/20 02:13 84 97 07/02/20 02:07 93 H 9 L 120/77 99 07/02/20 01:44 36.4 C L 123 H 20 134/82 97 (1) Unintentional Tylenol overdose Encounter type: initial encounter Qualified Code(s): T39.1X1A - Poisoning by 4-Aminophenol derivatives, accidental (unintentional), initial encounter (2) Right knee sprain Encounter type: initial encounter Involved ligament of knee: unspecified ligament Qualified Code(s): S83.91XA - Sprain of unspecified site of right knee, initial encounter
[2020-07-02] MEDS: PANTOprazole 40 MG in SYRINGE 0 ML IV SCH (13:26)
--- NOTE | 2020-07-02 16:03 | Surgery Consultation ---
Date of Consultation July 02, 2020 Assessment & Plan (1) Metastatic lung carcinoma: 44 yea-old female with metastatic adenocaricnoma of the lung with brain mets in need for aport for chemotherapy. Had prior right sided aport for her breast cancer treatments 13 years ago. Plan: Plan for left sided subclavian aport catheter in OR tomorrow with Dr. Henry. Dr. Henry has informed patient of procedure and risks, informed consent obtained. NPO after midnight Continue medical management Dr. Henry has seen patient and agrees with above. Supervising Physician Co-Signing Physician Notes I interviewed and examined this patient I agree with the above note. She has need for long-term central venous access. We are planning for placement of subclavian a port on the left side. I explained her the procedure and the possible complications. I answered her questions. She signed a consent form. History of Present Illness Reason for Consultation: aport placement Requesting Physician: Dr. Panchito Chen Attending Physician: Abel Stroud DO History of Present Illness Josi is a 44 year-old female with metastatic adenocarcinoma of the lung including brain mets with medical history of adenocarcinoma of the breast s/p bilateral mastectomy 13 years ago who recently underwent craniotomy for brain mets at [facility]. Our services have been consulted for aport placement for administration of chemotherapy. She had a prior aport placed on the right chest wall for her breast cancer treatment 13 years ago. No other central venous lines or chest procedures. She is not on any blood thinning agents. Allergies Allergy/AdvReac Type Severity Reaction Status Date / Time Penicillins Allergy Intermediate SWELLS Verified 07/02/20 02:16 Home Medications Medication Instructions Recorded Confirmed Type omeprazole 20 mg PO DAILY PRN 06/01/20 07/02/20 History levetiracetam 1,000 mg PO BID 07/02/20 07/02/20 History oxycodone 5 mg PO Q6 PRN 07/02/20 07/02/20 History Patient History Medical History Cancer related pain Surgical History H/O bilateral mastectomy H/O craniotomy H/O: hysterectomy History of cholecystectomy Social History Smoking Status: Former smoker Second Hand Exposure: No; Hx Alcohol Use: No Hx Substance Use: No Preferred Language: Bulgarian Communication Ability: Effective Payment Rep Required: No Beliefs That Will Affect Care: None marital status: Current Living Situation: Spouse How many Children do You have: 2 Feels Safe at Home: Yes Assistive Devices: None Review of Systems Review of Systems: All systems reviewed & are unremarkable except as noted in HPI & below Physical Exam Constitutional: WD/WN, vitals as above Respiratory: normal respiratory effort, lungs clear to auscultation Cardiovascular: RRR, no murmur, no edema Chest (Breasts): Chest: normal inspection of chest; no vascular access device or port (prior right aport scar present) Additional Comments: bilateral mastectomy with implants present Skin: no rashes, warm and dry Psychiatric: Orientation: alert and oriented x 3 Results & Data ([facility]) Vital Signs (Past 12 Hours) Vital Signs Temp Pulse Pulse Resp BP BP Pulse Ox 07/02/20 15:32 36.7 C 93 H 20 121/80 95 07/02/20 14:20 82 07/02/20 11:21 36.7 C 86 18 109/76 96 07/02/20 07:45 36.7 C 89 19 112/73 95 07/02/20 07:27 86 07/02/20 06:11 86 07/02/20 06:00 36.9 C 90 20 115/79 96 07/02/20 05:39 97 H 20 105/76 96 07/02/20 05:00 79 22 102/68 95 07/02/20 04:30 96 H 19 110/79 97 Laboratory Results 07/02/20 07/02/20 Range/Units 02:01 02:01 WBC 9.55 (4.8-10.8) K/uL RBC 4.90 (4.2-5.4) M/uL Hgb 14.9 (12.0-16.0) g/dL Hct 42.5 (37-47) % MCV 86.7 (80-100) fL MCH 30.4 (25-34) pg MCHC 35.1 (32-36) g/dL RDW Std Deviation 40.4 (36.4-46.3) fL RDW Coeff of Suri 12.6 (11.5-14.5) % Plt Count 304 (130-400) K/uL MPV 9.7 (7.4-10.4) fL Immature Gran % (Auto) 1.2 % Neut % (Auto) 73.3 % Lymph % (Auto) 15.9 % Bullock % (Auto) 7.5 % Eos % (Auto) 1.7 % Baso % (Auto) 0.4 % Neut # (Auto) 7.00 H (1.4-6.5) K/uL Lymph # (Auto) 1.52 (1.2-3.4) K/uL Bullock # (Auto) 0.72 H (0.11-0.59) K/uL Eos # (Auto) 0.16 (0-0.5) K/uL Baso # (Auto) 0.04 (0-0.2) K/uL Immature Gran # (Auto) 0.11 H (0.00-0.02) K/uL Sodium 137 (136-145) mmol/L Potassium 3.2 L (3.5-5.1) mmol/L Chloride 101 (98-107) mmol/L Carbon Dioxide 23 (21-32) mmol/L Anion Gap 13.0 H (3-11) BUN 3 L (7-18) mg/dl Creatinine 0.51 L (0.6-1.2) mg/dl Est Cr Clr Drug Dosing 159.2 ml/min Est GFR ( Amer) 136.5 Est GFR (Non-Af Amer) 117.8 BUN/Creatinine Ratio 6.7 L (10-20) Glucose 102 H (70-99) mg/dl Calcium 9.5 (8.5-10.1) mg/dl Total Bilirubin 0.8 (0.2-1) mg/dl AST 26 (15-37) U/L ALT 30 (12-78) U/L Alkaline Phosphatase 177 H (45-117) U/L Total Protein 7.9 (6.4-8.2) gm/dl Albumin 3.4 (3.4-5.0) gm/dl Globulin 4.5 H (2.5-4.0) gm/dl Albumin/Globulin Ratio 0.8 L (0.9-2)
--- NOTE | 2020-07-02 17:51 | Anesthesiology Consultation ---
Date of Service July 02, 2020 Covid 19 test ordered today and is pending. Assessment & Plan (1) Encounter for pre-operative examination: Chart Review Chart Review: Acceptable Risk for Surgery and Patient NOT seen in Pre Admission Testing Consults Requested none History Surgery Operation Date: 07/03/20 09:40 Proposed Procedures p Placement of Aport - Frank Henry MD Height/Weight Height: 5 ft 7 in Weight: 84.4 kg Allergies Allergy/AdvReac Type Severity Reaction Status Date / Time Penicillins Allergy Intermediate SWELLS Verified 07/02/20 02:16 Medications Home Medications Medication Instructions Recorded Confirmed Last Taken omeprazole 20 mg PO DAILY PRN 06/01/20 07/02/20 05/31/20 levetiracetam 1,000 mg PO BID 07/02/20 07/02/20 Unknown oxycodone 5 mg PO Q6 PRN 07/02/20 07/02/20 Unknown Active Medications Generic Name Dose Route Start Last Admin Trade Name Freq PRN Reason Stop Dose Admin Duloxetine HCl 30 mg 07/02/20 09:00 07/02/20 09:56 Duloxetine Hcl 30 Mg Cap PO 08/01/20 08:59 30 mg QAM KAMILA Administration Levetiracetam 1,000 mg/ Sodium 110 mls @ 440 mls/hr 07/02/20 09:00 07/02/20 10:01 Chloride IV 08/01/20 08:59 Infused BID KAMILA Infusion Pantoprazole Sodium 40 mg/ 10 mls @ 5 mls/min 07/02/20 11:00 07/02/20 13:26 Syringe IV 08/01/20 10:59 5 mls/min DAILY@1100 KAMILA Administration Dextrose/Sodium Chloride 1,000 mls @ 125 mls/hr 07/02/20 05:56 07/02/20 14:24 D5w And Nss IV 08/01/20 05:55 125 mls/hr .Q8H KAMILA Administration Oxycodone HCl 5 - 10 mg 07/02/20 08:34 07/02/20 14:15 Oxycodone Hcl Ir 5 Mg Tab (Immediate Release) PO 07/16/20 06:05 10 mg Q4 PRN Administration pain Past Medical History Medical History Cancer related pain Past Surgical History Surgical History H/O bilateral mastectomy H/O craniotomy H/O: hysterectomy History of cholecystectomy Social History Smoking Status: Former smoker Hx Alcohol Use: No Hx Substance Use: No Physical Exam Vital Signs Last Vital Signs Temp 36.7 C 07/02/20 15:32 Pulse 93 H 07/02/20 15:32 Resp 20 07/02/20 15:32 BP 121/80 07/02/20 15:32 Pulse Ox 95 07/02/20 15:32 Testing Laboratory Results 07/02/20 02:01 07/02/20 02:01
[2020-07-03] MEDS ORDERED: KETOROLAC TROMETHAMINE 15 MG/ML VIAL IV ONE (02:28)
[2020-07-03] MEDS: D5W AND NSS 1,000 ML IV SCH (05:40)
[2020-07-03 06:08] LABS: Hematocrit (blood only) 33.2 % (37-47); Hemoglobin 11.3 g/dL (12.0-16.0); Mean Corpuscular Hemoglobin 29.9 pg (25-34); Mean Corpuscular Volume 87.8 fL (80-100); Mean Platelet Volume 9.6 fL (7.4-10.4); Platelet Count 258 K/uL (130-400); RDW Standard Deviation 41.8 fL (36.4-46.3); Red Blood Count 3.78 M/uL (4.2-5.4); White Blood Count 7.19 K/uL (4.8-10.8)
[2020-07-03 06:14] LABS: INR 1.1 (0.9-1.1)
[2020-07-03 06:33] LABS: BUN Creatinine Ratio 3.7 (10-20); Calcium 8.7 mg/dl (8.5-10.1); Creatinine Clr Calc Pharmacy 188.3 ml/min; Est GFR (African American) 144.4; Est GFR (Non-African American) 124.6; Magnesium 1.8 mg/dl (1.8-2.4); Potassium 3.3 mmol/L (3.5-5.1)
[2020-07-03] MEDS: levETIRAcetam 1,000 MG in 0.9 % SODIUM CHLORIDE 100 ML IV SCH (08:11)
--- NOTE | 2020-07-03 08:14 | Hospitalist Progress Note ---
Date of Service July 03, 2020 Assessment & Plan (1) Cancer related pain: (2) Unintentional Tylenol overdose: (3) Hepatitis: (4) Right knee sprain: ASSESSMENT AND PLAN: This is a 44-year-old female who presents with cancer pain, question of dysphagia in the Emergency Room. 1. Cancer pain. The patient has metastatic adenocarcinoma of the lung, brain metastasis, status post craniotomy. Plan for chemotherapy, awaiting A-port. Hematology/Oncology aware. pain management on case. 2. Question of dysphagia. The patient says she was forcing herself to swallow at home, but in the Emergency Room, she has difficulty swallowing ice. The CT of the neck was showing the pretracheal mass is partially imaged, but the airway is patent and upper esophagus was unremarkable. Speech on case. Nannette reg diet 3. History of complex partial seizure. IV Keppra until able to take p.o. 4. Gastroesophageal reflux disease. IV Protonix until able to take p.o. 5. Deep venous thrombosis prophylaxis, sequential compression devices for now. 6. Disposition: Closely monitor in the med-telemetry. Level 1 full code. Expect to discharge home and follow up with her family doctor and her Oncologist labs checked. Hopefully DC after port placed ROS-No Headache, No Visual Changes, No Nausea, No Vomiting, No Fever, No Chills, No Neck Pain or Stiffness, +Chest Pain, No Palpitations, No SOB, No GREWAL, No Cough, No Sputum, No Wheezing, No Abdominal Pain, No Diarrhea, No Hematemesis, No Hemoptysis, No Unexpected Weight Loss, No Flank pain, No Melena, No Hematochezia, No Frequency, No Urgency, No Burning, No Hematuria, No Rashes, No Diaphoresis. Appetite is Normal Physical Exam Gen-AAO x 3, NAD, Afebrile, tearful Head-NCAT, EOMI, PERRLA, Anicteric Sclera, No Posterior Pharyngeal Erythema Neck-Supple, No JVD, No Thyromegaly, No Masses, No LAD, No Bruits Lungs-Clear to Auscultation Bilaterally, No Rales, No Rhonchi, No Wheezing, No Crepitus Chest-No S4, +S1, +S2, No S3, No Murmurs, No Rubs, No Gallops, No Ectopy Abdomen-Soft, Bowel Sounds Present, Non Tender, Non Distended, No Hepatomegaly, No Splenomegaly, No Palpable Masses, No Rebound, No Rigidity, No Guarding Musculoskeletal-Full Range of Motion Bilaterally, No CVAT Extremities-No Cyanosis, No Clubbing, No Edema Nuero-Cranial Nerves II-XII grossly intact, Motor WNL, DTRs WNL, Strength WNL, Non Focal Psych-Depressed Admission and Anticipated Discharge Date Admission Date: July 02, 2020 Results & Data Results & Data ([facility]) Vital Signs (Past 12 Hours) Vital Signs Temp Pulse Pulse Resp BP Pulse Ox 07/03/20 07:37 77 07/03/20 07:11 36.5 C 86 18 94/65 L 94 07/03/20 04:00 36.6 C 83 18 100/67 93 07/03/20 01:00 77 07/02/20 22:45 36.8 C 87 18 105/69 92 (1) Unintentional Tylenol overdose Encounter type: initial encounter Qualified Code(s): T39.1X1A - Poisoning by 4-Aminophenol derivatives, accidental (unintentional), initial encounter (2) Right knee sprain Encounter type: initial encounter Involved ligament of knee: unspecified ligament Qualified Code(s): S83.91XA - Sprain of unspecified site of right kne e, initial encounter
--- NOTE | 2020-07-03 08:24 | Pain Management Progress Note ---
Date of Service July 03, 2020 Assessment & Plan (1) Brain metastases: (2) Metastatic lung carcinoma: (3) Cancer related pain: Patient is pleased with pain relief. Medication will remain at Oxycodone 5-10 mg x 4 hours PRN and Cymbalta 30mg daily. Cymbalta dosage may need increased to 60mg in a few weeks for improved relief. Thank you for the consultation. Please call with any questions or concerns. Admission and Anticipated Discharge Date Admission Date: July 02, 2020 Subjective 44 year old female with adenocarcinoma of the lung with brain metastasis admitted for visceral right sided chest pain. Oxycodone was increased to 10mg PO with moderate pain relief. She is pleased with her pain control. Was given Toradol IV last night since she is NPO which was also efficacious towards diminishing her pain. Cymbalta 30mg was started yesterday. She has not required the use of IV Morphine. Patient is scheduled for port placement today. Mild drowsiness. No constipation. Pain Assessment Pain Assessment Full Body Front + Back: 1. 2. Physical Exam Physical Exam: GENERAL: This is a 44 year old female. Does not appear in any acute distress. HEAD/FACE: Normocephalic and atraumatic. EYES: No drainage or conjunctival injection. ENT: Nose without bleeding or discharge. Oral mucosa moist. NECK: Full ROM without apparent pain. No swelling or masses noted. RESPIRATORY: Patient with unlabored breathing. No signs of respiratory distress. CHEST/AXILLA: Chest movement symmetrical. No deformities noted. Mild tenderness under the right breast. No increased pain with AP chest compression. No tenderness of the intercostal nerve. No scapular tenderness. ABDOMEN/GI: No distension BACK: Moves without difficulty SKIN: [place], warm and dry. No rash noted. MS/EXTREMITY: No swelling, no deformities. Moving extremities appropriately. NEURO: Alert and appears oriented. Speech is fluent. Cranial Nerves are grossly intact.
[2020-07-03] MEDS: POTASSIUM CHLORIDE / WTR 10 MEQ/100 ML PLCT IV SCH ×2 (08:52→10:19)
[2020-07-03] MEDS ORDERED: MIDAZOLAM HCL 1 MG/ML 2ML VIAL ONE (11:00)
[2020-07-03] MEDS ORDERED: fentaNYL citrate 100 MCG/2 ML VIAL ONE ×2 (11:00→11:49)
[2020-07-03] MEDS ORDERED: LIDOCAINE HCL 1% 20 ML VIAL ONE (11:06)
[2020-07-03] MEDS ORDERED: HEPARIN 100 UNIT/ML 5ML FLUSH ONE (11:06)
--- NOTE | 2020-07-03 11:11 | History & Physical Bridge Note ---
Date of Service July 03, 2020 History & Physical Bridge Note I have examined the patient, reviewed the History & Physical and in the interval since the performance of the History & Physical I have noted the following changes of clinical significance: no changes noted
[2020-07-03] MEDS ORDERED: ONDANSETRON INJ 2 MG/ML 2 ML VIAL ONE (11:32)
[2020-07-03] MEDS ORDERED: DEXAMETHASONE SOD INJ 4 MG/ML VIAL ONE (11:32)
[2020-07-03] MEDS ORDERED: PROPOFOL IV EMULSION 10 MG/ML 20 ML VIAL IV ONE (11:32)
--- NOTE | 2020-07-03 12:20 | Post Operative Brief Note ---
Immediate Post Op Note v1 Date of Surgery July 03, 2020 Pre & Post Diagnosis Operation Date: 07/03/20 09:40 Pre-Op Diagnosis: metastatic adenocaricnoma Post-Op Diagnosis: metastatic adenocaricnoma I identified the patient and participated in the time-out.: Yes Procedure Operation Date: 07/03/20 09:40 Actual Procedures p Placement of Aport Left Subclavian(Left) - Frank Henry MD Surgeon Frank Henry MD Machine Finisher Stormy Dockery Estimated Blood Loss 5 Findings Consistent with Post-Op Diagnosis
--- NOTE | 2020-07-03 12:49 | XRay Report ---
XR chest 1V portable CLINICAL HISTORY: S/P placement of Aport COMPARISON STUDY: 06/19/2020 FINDINGS: There is a 6 cm right midlung zone pulmonary mass. There is a left subclavian A-Port cathet er. The tip projects over the superior vena cava. There is no pneumothorax.[ IMPRESSION: 1. No evidence of pneumothorax status post placement of a left subclavian A-Port catheter 2. 6 cm right midlung zone pulmonary mass ACT 112: Negative or not required by law. Electronically signed by: Axel Hook M.D. 07/03/2020 12:47 PM
--- NOTE | 2020-07-03 13:21 | Anesthesiology Progress Note ---
Date of Service July 03, 2020 Anesthesia Post Procedure Vital Signs Vital Signs: Temp Pulse Pulse Pulse Pulse Resp BP 07/03/20 13:15 86 15 111/73 07/03/20 13:00 36.6 C 90 14 110/70 07/03/20 12:50 92 H 16 106/78 07/03/20 12:40 84 15 107/82 07/03/20 12:33 36.3 C L 95 H 16 124/87 07/03/20 11:03 36.9 C 90 18 124/80 07/03/20 07:37 77 07/03/20 07:11 36.5 C 86 18 94/65 L 07/03/20 04:00 36.6 C 83 18 100/67 07/03/20 01:00 77 07/02/20 22:45 36.8 C 87 18 105/69 07/02/20 19:10 36.9 C 90 18 101/67 07/02/20 15:32 36.7 C 93 H 20 121/80 07/02/20 14:20 82 Pulse Ox 07/03/20 13:15 94 07/03/20 13:00 96 07/03/20 12:50 94 07/03/20 12:40 100 07/03/20 12:33 100 07/03/20 11:03 97 07/03/20 07:37 07/03/20 07:11 94 07/03/20 04:00 93 07/03/20 01:00 07/02/20 22:45 92 07/02/20 19:10 93 07/02/20 15:32 95 07/02/20 14:20 Pain Intensity Right Upper Abdomen: Pain Intensity: 4 Right Back: Pain Intensity: 9 Transfer of Care Handoff Completed per policy Notes Mental Status: alert / awake / arousable and participated in evaluation Patient Amnestic to Procedure: Yes Nausea / Vomiting: adequately controlled Pain: adequately controlled Airway Patency, RR, SpO2: stable & adequate BP & HR: stable & adequate Hydration State: stable & adequate Anesthetic Complications: no major complications apparent and Pt Satisfied with anesthetic care
[2020-07-03] MEDS: PANTOprazole 40 MG in SYRINGE 0 ML IV SCH (14:02)
[2020-07-03] MEDS: DULoxetine HCL 30 MG CAP PO SCH (14:02)
[2020-07-03] MEDS: oxyCODONE HCL IR 5 MG TAB (IMMEDIATE RELEASE) PO PRN (14:09)
--- NOTE | 2020-07-03 14:11 | Discharge Summary ---
Date of Service July 03, 2020 Admission HPI Per Admitting Provider 44-year-old female with past medical history significant for breast cancer, status post bilateral mastectomy 13 years ago, history of recent diagnosis of adenocarcinoma of the lung and brain mets, history of right frontal craniotomy for brain tumor resection, partial complex seizures. She was recently in the hospital for unintentional Tylenol toxicity and treated with n- acetylcysteine and discharged on oxycodone. The patient says the oxycodone is not holding the plan for long time. She is having severe pains.Today again she had right upper quadrant/right lower rib cage pain, which was not getting better, that is why she came to the ER. In the ER, she had an episode of not able to swallow. Soft tissue of neck was done preliminary report showing normal epiglottis, normal upper esophagus. The airway is patent. Pretracheal mass is also partially imaged. Multiple small mediastinal lymph nodes are noted. The patient is currently in the ER, received Ativan, currently resting comfortably but somewhat tearful. She is supposed to go see the heme/onc today and also she was supposed to get an A-port last week, but it was canceled because of the weather. She wants to get help with the pain medication and she was hoping that she will get the A-port while this admission and also see her heme/onc. Denies any headache, no blurred vision, no earache, no runny nose, no sore throat. She has some cough going on for the last 3 weeks, dry cough. With her cough, she will get some chest pain, no shortness of breath. No diarrhea or constipation, no blood in stools or black stools. Normal bladder movements. Ambulating okay at home. Afebrile. Admission Exam Per Admitting Provider GENERAL: The patient is of moderate build, not in acute distress. VITAL SIGNS: Temperature 36.4, pulse 79, respiratory rate 22, blood pressure 102/68, oxygen 95% on room air. HEENT: Pupils equal, round, reactive to light. Oral mucosa moist. NECK: No neck masses seen. CARDIOVASCULAR: S1, S2, regular rate and rhythm, no murmur, no gallop. RESPIRATORY SYSTEM: Normal AP diameter. No accessory muscle use. No wheezing, no crackles. ABDOMEN: Soft, bowel sounds present. Mild abdominal discomfort present in the right upper quadrant region. No guarding, no distention. CENTRAL NERVOUS SYSTEM: Cranial nerves II through XII grossly nonfocal. EXTREMITIES: No edema, no erythema. Principal Diagnosis 1. Cancer pain. Metastatic adenocarcinoma of the lung, brain metastasis 2. Dysphagia. 3. History of complex partial seizure. 4. Gastroesophageal reflux disease. Discharge Exam see below Discharge Data Allergies Allergy/AdvReac Type Severity Reaction Status Date / Time Penicillins Allergy Intermediate SWELLS Verified 07/02/20 02:16 Consultations 07/02/20 04:06 ED Decision to Admit Stat 07/02/20 05:56 Consult Case Management - Discharge Planning Routine Consult General Surgery Routine Consult Hematology Routine 07/02/20 08:00 Consult Pain Management Routine Procedures Performed Operation Date: 07/03/20 09:40 Actual Procedures p Placement of Aport Left Subclavian(Left) - Frank Henry MD Ordered Studies 07/02/20 01:55 CT soft tissue neck w con Urgent Current Diagnoses Secondary malignant neoplasm of unspecified lung (07/02/20) Secondary malignant neoplasm of brain (07/02/20) Neoplasm related pain (acute) (chronic) (07/02/20) Inflammatory liver disease, unspecified (07/02/20) Sprain of unspecified site of right knee, initial encounter (07/02/20) Poisoning by 4-Aminophenol derivatives, accidental (unintentional), initial encounter (07/02/20) Encounter for other preprocedural examination (07/02/20) Allergies Penicillins Allergy (Intermediate, Verified 07/02/20 02:16) SWELLS Height/Weight/Isolation Height 5 ft 7 in Weight 87.7 kg Chemistry 07/02/20 07/03/20 02:01 05:33 Sodium 137 139 Potassium 3.2 L 3.3 L Chloride 101 108 H Carbon Dioxide 23 25 Anion Gap 13.0 H 6.0 BUN 3 L 2 L Creatinine 0.51 L 0.43 L Glucose 102 H 127 H Hospital Course (1) Cancer related pain: (2) Metastatic lung carcinoma: Total Time Total Time Spent Total Time Spent (In Minutes): 45 min Total Time Includes: Examination of the Patient, Discharge Planning, Medication Reconciliation and Communication With Other Providers Discharge Plan Discharge Items Patient Disposition: Home - Self-Care Reason For Visit: PAIN Discharge Diagnosis: 1. Cancer pain. Metastatic adenocarcinoma of the lung, brain metastasis 2. Dysphagia. 3. History of complex partial seizure. 4. Gastroesophageal reflux disease. Condition on Discharge: Good Health Concerns: pain control Activity: Resume your previous activity Lifting: Gradually increase as tolerated Bathing: No limitations Sexual Activity: When tolerated Exercise/Sports: Gradually increase as tolerated Driving/Machine Use: No limitations Weightbearing: Full weightbearing Non-emergency contact: Primary Care Provider and Oncologist Call non-emergency contact if: you have any medication questions Follow-up/Referrals: Mark Phelps [Primary Care Provider] - Jasiel Fritz DO [Physician] - (Date & Time 07/10/2020 11:00 AM Provider Jasiel Fritz DO [facility] ) Lilly Barillas MD [Hospitalist] - (Call for appointment JESENIA) Diet: Regular Diet Texture: Easy to Chew Addtl Attending Provider Instructions: none Pending Studies at Discharge: No Stand-Alone Forms: My [facility] [place], Opioid Pain Management, Smoking Cessation Medications and DC Order Prescriptions: New acetaminophen 325 mg Tablet 650 mg PO Q4H PRN (Reason: fever or pain) Qty: 90 RF: 0 oxycodone 5 mg Tablet 5 - 10 mg PO Q4 PRN (Reason: pain) Qty: 60 RF: 0 duloxetine 30 mg Capsule,Delayed Release(Dr/Ec) 30 mg PO QAM Qty: 30 RF: 0 oxycodone [OxyContin] 10 mg tablet,oral only,ext.rel.12 hr 10 mg PO BID Qty: 60 RF: 0 Continued omeprazole 20 mg Capsule,Delayed Release(Dr/Ec) 20 mg PO DAILY PRN (Reason: Heartburn) RF: 0 levetiracetam 500 mg tablet 1,000 mg PO BID RF: 0 Discontinued oxycodone 5 mg tablet 5 mg PO Q6 PRN (Reason: pain) RF: 0 Discharge Orders: Discharge Order (Routine); Ordered 07/03/20 Ordered By: Abel Stroud Admission Data Admit Date/Time: 07/02/20 04:55 Attending Provider: Abel Stroud Admit Provider: Peter Chen Primary Care Provider: Mark Phelps Other Providers: Peter Chen ; Paco Liriano ; Lilly Barillas ; Andres Pratt
--- NOTE | 2020-07-03 22:21 | Operative Report (OR) ---
DATE OF OPERATION: 07/03/2020 PREOPERATIVE DIAGNOSIS: Need for long-term central venous access. POSTOPERATIVE DIAGNOSIS: Need for long-term central venous access. PROCEDURE: Placement of A-port tunneled central venous access catheter with port via left subclavian approach. SURGEON: Frank Henry MD SAW OFFBEARER: Stormy Dockery PA-C FINDINGS: The tip of the catheter was placed near the junction of the superior vena cava and right atrium. The port was accessed and there was good blood return. It was easily flushed without leaking. TECHNIQUE: The patient was given general anesthesia and the area was prepped and draped in the usual sterile fashion. The skin and subcutaneous tissue inferior to the left clavicle were anesthetized with 1% Xylocaine without epinephrine. The subclavian vein was entered on the first attempt; however, the wire would not pass. The wire was removed. The vein was then entered again on the first attempt and this time the wire passed with ease. The tip of the wire was confirmed in the right atrium by fluoroscopy. A small incision was made at the exit site of the wire. The site for the port was chosen. The skin and subcutaneous tissue superior to that area were anesthetized with 1% Xylocaine without epinephrine. Skin incision was made and was carried down through the subcutaneous tissue to the fascia and hemostasis was obtained at all times using electrocautery. A prepectoral pocket was created inferior to the incision and the port fit nicely. The introducer sheath device was passed over the wire under fluoroscopic guidance. The wire and introducer were removed and the catheter was passed through the sheath under fluoroscopic guidance and the tip of the catheter was seen to enter the right atrium. The sheath was peeled. The tunneling device was used to tunnel the catheter from the infraclavicular incision to the port incision. Fluoroscopy was then used to size the catheter. The catheter was cut and attached to the port with ease. The port was secured to the prepectoral fascia with 2-0 Prolene. The port was accessed and there was good blood return, it was easily flushed. The port incision was closed with a running 2-0 Vicryl in the deep subcutaneous tissue, running 3-0 Vicryl in the superficial subcutaneous tissue, and a running 4-0 Monocryl in a subcuticular fashion for the skin. The infraclavicular incision was closed with a 4-0 Monocryl subcuticular suture. The skin was cleansed, dried, and a dressing placed. The estimated blood loss was 5 mL. The sponge, needle, and instrument counts were correct prior to closure. The patient tolerated the surgical procedure without complication and was transferred to recovery. The Physician Car Park Attendant was present for the entire case and helped with retraction port attachment to the catheter and closure. I attest to the content of the Intraoperative Record and any orders documented therein. Any exceptions are noted below. ASMITA
== END 2020-07-03 16:25 | disposition home or self-care (01) ==
LOC: ED 01:40 → INTOOBSV 04:55 → SUATTDRO 04:55 → 2N 04:55

== ENCOUNTER 2020-07-09 18:21 | Observation (INO) ==
[2020-07-09] MEDS ORDERED: SODIUM CHLORIDE 0.9% 500 ML IV SCH (18:45)
--- NOTE | 2020-07-09 18:56 | Emergency Department Note ---
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 She was admitted recentl for pain management and Tylenol overuse about a week ago and had a port placed at that time was yet to be used. She has had no fall or trauma. she has a slight headache and feels slightly dizzy. she has had no nausea vomiting or diarrhea. she does not feel that she is keeping up with her fluids because nothing tastes good. She was Covid tested negative on July 02 during her last admission. She has had no fever or chills. She did take oxycodone 1 hour prior she tells me she does have some form of long-acting morphine which she has yet to take because she was afraid. She is scheduled for chemo at [facility] but has not yet started. She did take one Tylenol today but has not been taking much Home Medications Medication Instructions Recorded Confirmed Type omeprazole 20 mg PO DAILY PRN 06/01/20 07/02/20 History levetiracetam 1,000 mg PO BID 07/02/20 07/02/20 History acetaminophen 650 mg PO Q4H PRN #90 tab 07/03/20 Rx duloxetine 30 mg PO QAM #30 cap 07/03/20 Rx oxycodone 5 - 10 mg PO Q4 PRN #60 tab 07/03/20 Rx oxycodone [OxyContin] 10 mg PO BID #60 tab 07/03/20 Rx potassium chloride 20 meq PO BID #30 tab 07/03/20 Rx Allergies Allergy/AdvReac Type Severity Reaction Status Date / Time Penicillins Allergy Intermediate SWELLS Verified 07/02/20 02:16 Past Med/Surg History Medical History Cancer related pain Surgical History H/O bilateral mastectomy H/O craniotomy H/O: hysterectomy History of cholecystectomy Social History Smoking Status: Former smoker Second Hand Exposure: No; Hx Alcohol Use: No Hx Substance Use: No Preferred Language: Nepali Communication Ability: Effective Retail Director Required: No Beliefs That Will Affect Care: None marital status: Current Living Situation: Spouse How many Children do You have: 2 Feels Safe at Home: Yes Assistive Devices: None Review of Systems A total of 10 systems reviewed and were otherwise negative Physical Exam Vital Signs Vital Signs - 24 hr 07/09/20 18:24 07/09/20 20:04 07/09/20 21:52 Temperature 36.6 C Temperature Source Temporal Artery Scan Pulse Rate 120 H Pulse Rate [Apical] 93 H 93 H Pulse Rhythm Regular Pulse Strength Normal Respiratory Rate 20 18 18 Respiratory Effort / Characteristics Non-Labored Spontaneous Non-Labored Spontaneous Respiratory Depth Normal Normal Respiratory Pattern Regular Blood Pressure 109/76 Blood Pressure [Right Arm] 116/76 110/68 Blood Pressure Mean 87 Blood Pressure Mean [Right Arm] 89 82 Blood Pressure Position Sitting Blood Pressure Position [Right Arm] Lying Pulse Oximetry 97 95 95 Oxygen Delivery Method Room Air Room Air Room Air Sepsis Recent Fever Within 48 Hours No Sepsis New/Unexplained Change in Mental Status No Sepsis Action Taken by Nursing No Action Required General: Well developed well nourished anxious and teary-eyed fenale who appearsin no acute distress, breathing comfortably on room air. Normal speech HEENT: Normal cephalic atraumatic. Pupils are equal round and reactive to light. Extraocular movements are intact. Oropharynx is pink with moist mucous membranes. No swelling of the mouth lips or tongue. Neck: Supple with a midline trachea. No meningeal signs or stiffness, no JVD or bruits. No Stridor. Chest: Clear to auscultation bilaterally. No wheezes or rhonchi. No increased work of breathing. Heart: Regular rate and rhythm without murmurs or gallops. Abdomen: Soft nontender, nondistended without rebound guarding or rigidity. Extremities: No cyanosis clubbing or edema. No calf tenderness or assymetry Spine/Back. Non tender to palpation. No CVA tenderness Skin: Good turgor without rashes. Neurologic exam: Cranial nerves two through 12 are intact. Motor and sensation are intact and symmetrical throughout. Course Administered Medications Discontinued Medications Sodium Chloride (Nss) 500 mls @ 999 mls/hr IV .Q31M KAMILA Stop: 07/09/20 19:15 Last Infusion: 07/09/20 20:05 Dose: 0 mls/hr Documented by: [id number] Admin: 07/09/20 19:01 Dose: 999 mls/hr Documented by: [id number] Ioversol (Optiray 320 125ml) 120 ml IV ONCE ONE Stop: 07/09/20 20:42 Last Admin: 07/09/20 20:41 Dose: 120 ml Documented by: [id number] Levetiracetam (Levetiracetam 500 Mg Tab) 1,000 mg PO ONE STA Stop: 07/09/20 20:11 Last Admin: 07/09/20 20:47 Dose: 1,000 mg Documented by: [id number] Morphine Sulfate (Morphine Sulfate Cr 15 Mg Tabcr) 15 mg PO NOW ONE Stop: 07/09/20 19:16 Last Admin: 07/09/20 19:22 Dose: 15 mg Documented by: [id number] Morphine Sulfate (Morphine Sulfate 2 Mg/Ml Carp) 2 mg IV NOW STA Stop: 07/09/20 20:11 Last Admin: 07/09/20 20:23 Dose: 2 mg Documented by: [id number] Morphine Sulfate (Morphine Sulfate 2 Mg/Ml Carp) 2 mg IV NOW STA Stop: 07/09/20 21:29 Last Admin: 07/09/20 21:50 Dose: 2 mg Documented by: [id number] Ondansetron HCl (Ondansetron Inj 2 Mg/Ml 2 Ml Vial) 4 mg IV NOW STA Stop: 07/09/20 20:11 Last Admin: 07/09/20 20:23 Dose: 4 mg Documented by: [id number] Potassium Chloride (Potassium Chloride 10 Meq Tabcr) 40 meq PO NOW STA Stop: 07/09/20 20:14 Last Admin: 07/09/20 21:42 Dose: Not Given Documented by: [id number] Potassium Chloride (Potassium Chloride Pwd 20 Meq Pack) 40 meq PO ONE STA Stop: 07/09/20 21:33 Last Admin: 07/09/20 21:50 Dose: 40 meq Documented by: [id number] Medical Decision Making Differential Diagnosis Cancer complication, cancer related pain, anxiety, infection, cardiac disease, pulmonary disease, intra-abdominal process, PE, Covid, trauma cancer complication Medical Records Attestation: I reviewed the patient's medical records. Home Medications Current Medication List: was personally reviewed by me Laboratory Data Attestation: I reviewed the patient's lab results. Result diagrams: 07/09/20 18:55 07/09/20 18:55 Lab Results 07/09/20 07/09/20 07/09/20 Range/Units 18:55 18:55 18:55 WBC 9.70 (4.8-10.8) K/uL RBC 4.82 (4.2-5.4) M/uL Hgb 14.5 (12.0-16.0) g/dL Hct 41.4 (37-47) % MCV 85.9 (80-100) fL MCH 30.1 (25-34) pg MCHC 35.0 (32-36) g/dL RDW Std Deviation 41.2 (36.4-46.3) fL RDW Coeff of Suri 13.0 (11.5-14.5) % Plt Count 292 (130-400) K/uL MPV 9.8 (7.4-10.4) fL Immature Gran % (Auto) 0.8 % Neut % (Auto) 68.7 % Lymph % (Auto) 18.7 % Prentiss % (Auto) 10.3 % Eos % (Auto) 1.0 % Baso % (Auto) 0.5 % Neut # (Auto) 6.66 H (1.4-6.5) K/uL Lymph # (Auto) 1.81 (1.2-3.4) K/uL Prentiss # (Auto) 1.00 H (0.11-0.59) K/uL Eos # (Auto) 0.10 (0-0.5) K/uL Baso # (Auto) 0.05 (0-0.2) K/uL Immature Gran # (Auto) 0.08 H (0.00-0.02) K/uL PT 11.2 (9.0-12.0) Seconds INR 1.1 (0.9-1.1) APTT 27.0 (21.0-31.0) Seconds PTT Ratio 1.0 Sodium 137 (136-145) mmol/L Potassium 3.1 L (3.5-5.1) mmol/L Chloride 101 (98-107) mmol/L Carbon Dioxide 24 (21-32) mmol/L Anion Gap 12.0 H (3-11) BUN 3 L (7-18) mg/dl Creatinine 0.50 L (0.6-1.2) mg/dl Est Cr Clr Drug Dosing 159.6 ml/min Est GFR ( Amer) 136.4 Est GFR (Non-Af Amer) 117.7 BUN/Creatinine Ratio 5.2 L (10-20) Glucose 108 H (70-99) mg/dl Calcium 9.6 (8.5-10.1) mg/dl Total Bilirubin 0.9 (0.2-1) mg/dl AST 34 (15-37) U/L ALT 26 (12-78) U/L Alkaline Phosphatase 169 H (45-117) U/L Troponin I < 0.015 (0-0.045) ng/ml Total Protein 7.4 (6.4-8.2) gm/dl Albumin 3.1 L (3.4-5.0) gm/dl Globulin 4.3 H (2.5-4.0) gm/dl Albumin/Globulin Ratio 0.7 L (0.9-2) Lipase 64 L (73-393) U/L Imaging Data Attestation: I personally reviewed and interpreted this imaging study as follows: Radiologist's Impression: XR chest 1V portable HISTORY: 45 years-old Female Chest Pain Atypical chest pain COMPARISON: Chest radiograph 07/03/2020, chest CT 05/11/2020. TECHNIQUE: Portable AP view of the chest FINDINGS: Left subclavian Fzouam-t-Majz catheter redemonstrated. No pneumothorax, pleural effusion or overt pulmonary edema. Emphysema. 5.8 cm right upper lobe pulmonary mass. Chronic interstitial coarsening. IMPRESSION: 1. No acute process. 2. Right upper lobe pulmonary mass redemonstrated. 3. Emphysema. CT head/brain wo con CLINICAL HISTORY: 45 years-old Female with headache, hx of brain met. Acute headache with lung cancer and intracranial metastasis TECHNIQUE: Multiple axial CT images of the head were obtained without contrast. A dose lowering technique was utilized adhering to the principles of ALARA. COMPARISON: Head CT 06/01/2020 FINDINGS: Postoperative changes of interval right-sided craniotomy. Decreased amount of vasogenic edema is noted throughout the right cerebral convexity with decreased mass effect. There is now only 3 mm leftward midline shift, previously 12 mm. No acute intracranial hemorrhage, new or progressive intracranial metastasis on th is noncontrast exam. No acute territorial infarct. 4 mm extra-axial fluid collection adjacent to the right cerebral convexity craniotomy site is likely postsurgical. Mastoid air cells are clear. Orbits are unremarkable. IMPRESSION: 1. No acute intracranial abnormality. 2. Interval right-sided craniotomy changes with decreased vasogenic edema surrounding the known intracranial metastasis of the right cerebral hemisphere resulting in decreased mass effect with decreased leftward midline shift. 3. 4 mm extra-axial collection and adjacent to the right cerebral convexity near the craniotomy site is likely postsurgical. [facility], [phone] CT Scan Report Patient: YNES MCCARTYAdmit Date: 07/09/20MR#: [id number]: [address] ID:[id number]: Date: 1975[facility] Zip: [id number] [id number]: [id number]: EDSex: FRoom/Bed:Att Phy:Diagnosis: UNCONTROLLABLE PAIN, HEADACHE, DIZZINESSPri Phy: Mark Phelps-CService Date: 07/09/20Fam Phy:Interpreting Phy: Devaughn BorjaAdmit Phy: Ordering Phy: Kyle Laws M.D. cc: ~ CT angio chest PE protocol, CT abd pelvis IV con only CT DOSE: 2010.07 mGy.cm HISTORY: 45 years-old Female with eval for PE, rt sided CP. Acute right-sided chest pain with shortness of breath. Acute right-sided flank pain. History of lung cancer with metastatic disease. TECHNIQUE: Multiple CTA images of the chest were obtained after the intravenous administration of 120 ml Optiray 320. Coronal and sagittal MIPS were obtained from the axial data set and were submitted for review. CT abdomen and pelvis with IV contrast only was also obtained. All measurements were obtained according to NASCET criteria. A dose lowering technique was utilized adhering to the principles of ALARA. COMPARISON: CT chest, abdomen and pelvis 05/11/2020. FINDINGS: CTA: Heart is normal in size. Small pericardial effusion. No thoracic aortic aneurysm or dissection. There is patency of the imaged great vessels. The pulmonary arterial tree is opacified to the level of the proximal subsegmental branches and demonstrates no filling defects to suggest thromboembolic disease. CT CHEST: Unremarkable thyroid. Left IJ Zezpcs-m-Nuyi catheter distal tip terminates within the SVC. Pathologic left subpectoral and axillary chain lymph nodes are redemonstrated. Index lymph node measures 2.5 x 1.5 cm on image 236 series 6, previously measured at 1.8 x 1.3 cm. Additional pathologic mediastinal and hilar adenopathy is redemonstrated. Index precarinal adenopathy measures 3.1 x 3.0 cm, unchanged. Pathologic adenopathy results in narrowing of the airway at the level of the lizeth and bilateral mainstem bronchi. Irregular spiculated soft tissue attenuating mass of the right upper lobe crossing the major fissure descending into the right lower lobe is redemonstrated measuring 5.5 x 4.6 x 5.0 cm, previously measured at 5.8 x 4.7 x 5.2 cm. Moderate emphysema with bronchial wall thickening suggestive of bronchitis. Mild consolidation of the lateral segment right middle lobe is new from comparison suggestive of atelectasis. Bilateral saline subpectoral breast implants appear intact. No acute fracture or suspicious bone lesion. CT ABDOMEN/PELVIS: No pneumatosis or pneumoperitoneum. The spleen measures within the upper limits of normal at 12.9 cm. Cholecystectomy. Unremarkable pancreas. Liver is also within normal limits. No evidence of hepatic metastatic disease. There are new bilateral adrenal metastasis measuring 13 mm on the right and 2.0 x 2.5 cm on the left. Pathologic periportal, pericaval, retroperitoneal and mesenteric lymph nodes have progressively worsened. Index precaval lymph node measuring 2.7 x 1.8 cm previously measured 2.6 x 1.0 cm. Kidneys are unremarkable. Asymmetric nodular urinary bladder wall thickening is noted along the inferior posterior margin measuring up to 1.4 cm on image 416 series 8. No aortic aneurysm. The hepatic and portal veins. Unremarkable IVC. No bowel obstruction. Scattered small bowel air-fluid levels. No bowel wall th ickening. Mild fecal retention. Noninflamed appendix. Unremarkable soft tissues. Bones appear intact. No acute fracture or new suspicious bone lesion. IMPRESSION: 1. No pulmonary emboli. 2. No bowel obstruction or bowel wall thickening. 3. Malignant mass involving the right upper lobe crossing the fissure extending into the right lower lobe is redemonstrated measuring over 5 cm in size. 4. There is progressive metastatic disease within the chest, abdomen and pelvis manifested by progressive lymphatic metastasis with new left greater than right adrenal metastasis. 5. Equivocal 1.4 cm intraluminal mass along the inferior posterior margin of the urinary bladder. 6. Additional findings as above. ECG Data Attestation: I personally reviewed and interpreted this ECG as follows: Indication: + chest pain Rate (beats per minute): 103 Rhythm: + sinus tachycardia ECG Intervals/blocks: + Normal QRS, + Normal QT and + Normal NM ECG [place]: + Normal ECG ST segments: + Normal ST segments Comparison ECG Date: from (06/19/20) Change: the following changes noted (T waves are slightly flattened diffusely comparatively, otherwise no significant change) MDM Narrative This patient comes in with pain in her right posterior chest which is where she is been having pain related to her cancer she feels slightly dizzy she did not take her long-acting MS ER at home because she was afraid of how it may make her feel. She is taking OxyIR for short-term pain and she is supposed to be on MS ER 15 mg twice a day. She has had no fever chills or trauma. She has minimal headache. She has no neurologic deficits. She did have A port placed recently but has yet to use it and is yet to start chemo. No fever or chills. No known exposure to Covid. She says she is been at home. IV access was established and she was hydrated with IV normal saline. Multiple blood testing was obtained as well as EKG and chest x-ray. She was reassessed frequently. EKG does not suggest acute coronary syndrome or arrhythmia. Chest x-ray shows a known lung mass but no acute findings otherwise. She has no fever or white count to suggest infection. She is not hypoxemic and has stable vital signs. Her potassium is low at 3.1, she is on potassium pills at home but does not take them because they are too big and she has difficulty time swallowing them. I did order potassium chloride 40 mEq powder/liquid for here. CAT scan of her head shows postsurgical changes and decreased edema compared to before. Chest CT shows no evidence of PE. There are no acute findings in the abdomen with exception of some increased lymph nodes and metastatic changes including the adrenal glands compared to previous. The patient has yet to get chemo and is scheduled to start soon. She did tolerate the MS ER well but she did require additional pain medications he received morphine 2 2 mg IV and Zofran 4 mg IV. She required additional morphine 2 mg IV. She did not have any problems with the IV morphine. She is complaining that she is miserable at home and a lot of pain I do think needs to be admitted/observe for pain management and adjustment of her pain regimen. There is no evidence suggest she took extra Tylenol or Tylenol overdose at this point. Continuous cardiac monitoring: Order was placed in the EMR for continuous cardiac monitoring. The patient was found to be in normal sinus rhythm with a pulse of 93. Impression & Plan Cancer related pain, Metastatic lung carcinoma, Brain metastases, Back pain Discharge Plan Visit Data Chief Complaint: Pain (Generalized) Stated Complaint: UNCONTROLLABLE PAIN, HEADACHE, DIZZINESS ED Provider: Kyle Laws Discharge Problem: Cancer related pain, Metastatic lung carcinoma, Brain metastases, Back pain Forms Stand Alone Forms: [facility] [address] Prescriptions Prescriptions: No Action omeprazole 20 mg Capsule,Delayed Release(Dr/Ec) 20 mg PO DAILY PRN (Reason: Heartburn) RF: 0 levetiracetam 500 mg tablet 1,000 mg PO BID RF: 0 acetaminophen 325 mg Tablet 650 mg PO Q4H PRN (Reason: fever or pain) Qty: 90 RF: 0 oxycodone 5 mg Tablet 5 - 10 mg PO Q4 PRN (Reason: pain) Qty: 60 RF: 0 duloxetine 30 mg Capsule,Delayed Release(Dr/Ec) 30 mg PO QAM Qty: 30 RF: 0 oxycodone [OxyContin] 10 mg tablet,oral only,ext.rel.12 hr 10 mg PO BID Qty: 60 RF: 0 potassium chloride 20 mEq tablet extended release 20 meq PO BID Qty: 30 RF: 0 Discharge Problem: Metastatic lung carcinoma Qualifiers: Laterality: right Qualified Code(s): C78.01 - Secondary malignant neoplasm of right lung Back pain Qualifiers: Back pain location: thoracic back pain Chronicity: acute Back pain laterality: right Qualified Code(s): M54.6 - Pain in thoracic spine
--- NOTE | 2020-07-09 19:12 | XRay Report ---
XR chest 1V portable HISTORY: 45 years-old Female Chest Pain Atypical chest pain COMPARISON: Chest radiograph 07/03/2020, chest CT 05/11/2020. TECHNIQUE: Portable AP view of the chest FINDINGS: Left subclavian Cddizo-j-Aosu catheter redemonstrated. No pneumothorax, pleural effusion or overt pul monary edema. Emphysema. 5.8 cm right upper lobe pulmonary mass. Chronic interstitial coarsening. IMPRESSION: 1. No acute process. 2. Right upper lobe pulmonary mass redemonstrated. 3. Emphysema. ACT 112: Negative or not required by law. The above report was generated using voice recognition software. It may contain grammatical, syntax o r spelling errors. Electronically signed by: Ashwin Borja M.D. 07/09/2020 7:11 PM
[2020-07-09] MEDS ORDERED: MoRPHine SULFATE CR 15 MG TABCR PO ONE (19:15)
[2020-07-09 19:32] LABS: Basophils # (auto) 0.05 K/uL (0-0.2); Basophils % (auto) 0.5 %; Hematocrit (blood only) 41.4 % (37-47); Hemoglobin 14.5 g/dL (12.0-16.0); Immature Granulocytes # (auto) 0.08 K/uL (0.00-0.02); Immature Granulocytes % (auto) 0.8 %; Lymphocytes # (auto) 1.81 K/uL (1.2-3.4); Lymphocytes % (auto) 18.7 %; Mean Corpuscular Hemoglobin 30.1 pg (25-34); Mean Corpuscular Volume 85.9 fL (80-100); Mean Platelet Volume 9.8 fL (7.4-10.4); Monocytes % (auto) 10.3 %; Neutrophils # (auto) 6.66 K/uL (1.4-6.5); Neutrophils % (auto) 68.7 %; Platelet Count 292 K/uL (130-400); RDW Standard Deviation 41.2 fL (36.4-46.3); Red Blood Count 4.82 M/uL (4.2-5.4)
[2020-07-09 19:42] LABS: INR 1.1 (0.9-1.1); Prothrombin Time 11.2 Seconds (9.0-12.0)
[2020-07-09 19:50] LABS: Alanine Aminotransferase 26 U/L (12-78); Albumin Level 3.1 gm/dl (3.4-5.0); Aspartate Aminotransferase 34 U/L (15-37); BUN Creatinine Ratio 5.2 (10-20); Blood Urea Nitrogen 3 mg/dl (7-18); Calcium 9.6 mg/dl (8.5-10.1); Carbon Dioxide 24 mmol/L (21-32); Chloride 101 mmol/L (98-107); Creatinine Clr Calc Pharmacy 159.6 ml/min; Est GFR (African American) 136.4; Est GFR (Non-African American) 117.7; Glucose 108 mg/dl (70-99); Lipase 64 U/L (73-393); Potassium 3.1 mmol/L (3.5-5.1); Sodium 137 mmol/L (136-145)
[2020-07-09 19:55] LABS: Albumin Globulin Ratio 0.7 (0.9-2); Alkaline Phosphatase 169 U/L (45-117); Bilirubin,Total 0.9 mg/dl (0.2-1); Globulin 4.3 gm/dl (2.5-4.0); Total Protein 7.4 gm/dl (6.4-8.2); Troponin I < 0.015 ng/ml (0-0.045)
[2020-07-09] MEDS ORDERED: levETIRAcetam 500 MG TAB PO STA (20:10)
[2020-07-09] MEDS ORDERED: ONDANSETRON INJ 2 MG/ML 2 ML VIAL IV STA (20:10)
[2020-07-09] MEDS ORDERED: MoRPHine SULFATE 2 MG/ML CARP IV STA ×2 (20:10→21:28)
[2020-07-09] MEDS ORDERED: POTASSIUM CHLORIDE 10 MEQ TABCR PO STA (20:13)
[2020-07-09] MEDS ORDERED: OPTIRAY 320 125ml IV ONE (20:41)
--- NOTE | 2020-07-09 20:49 | CT Scan Report ---
CT head/brain wo con CLINICAL HISTORY: 45 years-old Female with headache, hx of brain met. Acute headache with lung cance r and intracranial metastasis TECHNIQUE: Multiple axial CT images of the head were obtained without contrast. A dose lowering tech nique was utilized adhering to the principles of ALARA. COMPARISON: Head CT 06/01/2020 FINDINGS: Postoperative changes of interval right-sided craniotomy. Decreased amount of vasogenic edema is note d throughout the right cerebral convexity with decreased mass effect. There is now only 3 mm leftward midline shift, previously 12 mm. No acute intracranial hemorrhage, new or progressive intracranial m etastasis on this noncontrast exam. No acute territorial infarct. 4 mm extra-axial fluid collection a djacent to the right cerebral convexity craniotomy site is likely postsurgical. Mastoid air cells are clear. Orbits are unremarkable. IMPRESSION: 1. No acute intracranial abnormality. 2. Interval right-sided craniotomy changes with decreased vasogenic edema surrounding the known intra cranial metastasis of the right cerebral hemisphere resulting in decreased mass effect with decreased leftward midline shift. 3. 4 mm extra-axial collection and adjacent to the right cerebral convexity near the craniotomy site is likely postsurgical. ACT 112: Negative or not required by law. The above report was generated using voice recognition software. It may contain grammatical, syntax o r spelling errors. Electronically signed by: Ashwin Borja M.D. 07/09/2020 8:48 PM
--- NOTE | 2020-07-09 21:09 | CT Scan Report ---
CT angio chest PE protocol, CT abd pelvis IV con only CT DOSE: 2009.07 mGy.cm HISTORY: 45 years-old Female with eval for PE, rt sided CP. Acute right-sided chest pain with short ness of breath. Acute right-sided flank pain. History of lung cancer with metastatic disease. TECHNIQUE: Multiple CTA images of the chest were obtained after the intravenous administration of 120 ml Optiray 320. Coronal and sagittal MIPS were obtained from the axial data set and were submitted for review. CT abdomen and pelvis with IV contrast only was also obtained. All measurements were obta ined according to NASCET criteria. A dose lowering technique was utilized adhering to the principles of ALARA. COMPARISON: CT chest, abdomen and pelvis 05/11/2020. FINDINGS: CTA: Heart is normal in size. Small pericardial effusion. No thoracic aortic aneurysm or dissection. There is patency of the imaged great vessels. The pulmonary arterial tree is opacified to the level of the proximal subsegmental branches and demonstrates no filling defects to suggest thromboembolic disease . CT CHEST: Unremarkable thyroid. Left IJ Dkbalk-n-Sqhc catheter distal tip terminates within the SVC. Pathologic left subpectoral and axillary chain lymph nodes are redemonstrated. Index lymph node measures 2.5 x 1.5 cm on image 236 series 6, previously measured at 1.8 x 1.3 cm. Additional pathologic mediastinal and hilar adenopathy is redemonstrated. Index precarinal adenopathy measures 3.1 x 3.0 cm, unchanged. Pathologic adenopathy results in narrowing of the airway at the level of the lizeth and bilateral ma instem bronchi. Irregular spiculated soft tissue attenuating mass of the right upper lobe crossing the major fissure descending into the right lower lobe is redemonstrated measuring 5.5 x 4.6 x 5.0 cm, previously measu red at 5.8 x 4.7 x 5.2 cm. Moderate emphysema with bronchial wall thickening suggestive of bronchitis . Mild consolidation of the lateral segment right middle lobe is new from comparison suggestive of at electasis. Bilateral saline subpectoral breast implants appear intact. No acute fracture or suspicious bone lesi on. CT ABDOMEN/PELVIS: No pneumatosis or pneumoperitoneum. The spleen measures within the upper limits of normal at 12.9 cm. Cholecystectomy. Unremarkable pancreas. Liver is also within normal limits. No evidence of hepatic m etastatic disease. There are new bilateral adrenal metastasis measuring 13 mm on the right and 2.0 x 2.5 cm on the left. Pathologic periportal, pericaval, retroperitoneal and mesenteric lymph nodes have progressively worsened. Index precaval lymph node measuring 2.7 x 1.8 cm previously measured 2.6 x 1 .0 cm. Kidneys are unremarkable. Asymmetric nodular urinary bladder wall thickening is noted along the infer ior posterior margin measuring up to 1.4 cm on image 416 series 8. No aortic aneurysm. The hepatic an d portal veins. Unremarkable IVC. No bowel obstruction. Scattered small bowel air-fluid levels. No bowel wall thickening. Mild fecal re tention. Noninflamed appendix. Unremarkable soft tissues. Bones appear intact. No acute fracture or n ew suspicious bone lesion. IMPRESSION: 1. No pulmonary emboli. 2. No bowel obstruction or bowel wall thickening. 3. Malignant mass involving the right upper lobe crossing the fissure extending into the right lower lobe is redemonstrated measuring over 5 cm in size. 4. There is progressive metastatic disease within the chest, abdomen and pelvis manifested by progres sive lymphatic metastasis with new left greater than right adrenal metastasis. 5. Equivocal 1.4 cm intraluminal mass along the inferior posterior margin of the urinary bladder. 6. Additional findings as above. ACT 112: Negative or not required by law. The above report was generated using voice recognition software. It may contain grammatical, syntax o r spelling errors. Electronically signed by: Ashwin Borja M.D. 07/09/2020 9:08 PM
[2020-07-09] MEDS ORDERED: POTASSIUM CHLORIDE PWD 20 MEQ PACK PO STA (21:32)
--- NOTE | 2020-07-09 22:37 | History & Physical Report ---
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 Chemotherapy contemplated by [facility] oncologist history seizures, well-controlled on Keppra history TIA as per records Left breast cancer status post mastectomy, history BRCA gene mutation positivity Hypokalemia secondary to poor p.o. intake past tobacco abuse [facility] Patient counseled regarding importance of taking long-acting MS Contin as per schedule. Bowel regimen Pain management consult if without improvement Request a.m. provider to update patient oncologist (Dr. Barillas) regarding progressive disease on CAT scan and inquired about benefit of Radiation oncology consultation. Replace potassium, IVF DVT prophylaxis. SCDs RE brain mets Full code Text document was generated using [employer] voice recognition software. It may contain grammatical or spelling errors. Kindly contact undersigned for clarification of any documentation item in ques tion. History of Present Illness Chief Complaint: Uncontrolled right chest pain Primary Care Provider: Dr. Fritz History obtained from patient, family, and records. Medical history significant for NSCLC with brain mets status post brain tumor resection, history seizures, history TIA, breast cancer status post mastectomy, history BRCA gene mutation positivity, past tobacco abuse. Recent confinement last week for uncontrolled cancer pain. Patient seen by Pain management. Discharged on OxyContin twice daily and OxyIR as needed prescriptions. Patient insurance refused OxyContin. MS Contin alternative procured only 2 days ago by patient. Uncontrolled right chest pain going to her shoulder the last few days not fully relieved by OxyIR as needed. Slight headache with dizziness symptoms no nausea, no vomiting. Poor appetite. Patient sparingly taking MS Contin. Not taking medication twice daily as prescribed. Pain inadequately controlled by OxyIR. Patient losing sleep. Fair appetite. Occasional constipation. Intractable pain at the ER. 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 Allergies Allergy/AdvReac Type Severity Reaction Status Date / Time Penicillins Allergy Intermediate SWELLS Verified 07/02/20 02:16 Home Medications Medication Instructions Recorded Confirmed Type levetiracetam 1,000 mg PO BID 07/02/20 07/09/20 History duloxetine 30 mg PO QAM #30 cap 07/03/20 07/09/20 Rx dexamethasone 4 mg PO .BID/UD 07/09/20 07/09/20 History folic acid 1 mg PO DAILY 07/09/20 07/09/20 History morphine [MS Contin] 15 mg PO Q12H 07/09/20 07/09/20 History ondansetron 4 mg TRANSLINGUAL Q8H PRN 07/09/20 07/09/20 History ondansetron 8 mg PO Q8H PRN 07/09/20 07/09/20 History oxycodone 5 mg PO Q6 PRN 07/09/20 07/09/20 History prochlorperazine maleate 10 mg PO Q6H PRN 07/09/20 07/09/20 History tramadol 25 mg PO Q6H PRN 07/09/20 07/09/20 History Past Med/Surg History Medical History Cancer related pain Surgical History H/O bilateral mastectomy H/O craniotomy H/O: hysterectomy History of cholecystectomy Social History Smoking Status: Former smoker Second Hand Exposure: No; Do You Dip or Chew Tobacco: No; Hx Alcohol Use: No Hx Substance Use: No Preferred Language: Divehi Communication Ability: Effective Speech Correction Consultant Required: No Beliefs That Will Affect Care: None marital status: Current Living Situation: Spouse How many Children do You have: 2 Feels Safe at Home: Yes Safety Concerns: Feels Safe At This Time Assistive Devices: Glasses Review of Systems Review of Systems: As per HPI, all 10 systems reviewed, all other ROS negative Physical Exam Physical Exam: GENERAL: uncomfortable, tearful, looks older than stated age, no respiratory distress SKIN: Normal color, warm HEENT: Bespectacled, pink palpebral conjunctivae, no ptosis, dry buccal mucosa NECK : Supple, no tenderness CHEST : Decreased breath sounds, right chest wall tenderness HEART : RRR, no obvious murmurs ABDOMEN: Some distention, right abdominal tenderness EXTREMITIES : No LE swelling/tenderness, no other conspicuous deformities noted NEUROLOGIC : Coherent, no facial asymmetry, no other gross focality Results & Data Results & Data ([facility]) Vital Signs (Past 12 Hours) Vital Signs Temp Pulse Pulse Resp BP BP Pulse Ox 07/09/20 21:52 93 H 18 110/68 95 07/09/20 20:04 93 H 18 116/76 95 07/09/20 18:24 36.6 C 120 H 20 109/76 97 Laboratory Results Laboratory Results WBC 9.70 K/uL (4.8-10.8) 07/09/20 18:55 RBC 4.82 M/uL (4.2-5.4) 07/09/20 18:55 Hgb 14.5 g/dL (12.0-16.0) 07/09/20 18:55 Hct 41.4 % (37-47) 07/09/20 18:55 MCV 85.9 fL (80-100) 07/09/20 18:55 MCH 30.1 pg (25-34) 07/09/20 18:55 MCHC 35.0 g/dL (32-36) 07/09/20 18:55 RDW Std Deviation 41.2 fL (36.4-46.3) 07/09/20 18:55 RDW Coeff of Suri 13.0 % (11.5-14.5) 07/09/20 18:55 Plt Count 292 K/uL (130-400) 07/09/20 18:55 MPV 9.8 fL (7.4-10.4) 07/09/20 18:55 Immature Gran % (Auto) 0.8 % 07/09/20 18:55 Neut % (Auto) 68.7 % 07/09/20 18:55 Lymph % (Auto) 18.7 % 07/09/20 18:55 [place] % (Auto) 10.3 % 07/09/20 18:55 Eos % (Auto) 1.0 % 07/09/20 18:55 Baso % (Auto) 0.5 % 07/09/20 18:55 Neut # (Auto) 6.66 K/uL (1.4-6.5) H 07/09/20 18:55 Lymph # (Auto) 1.81 K/uL (1.2-3.4) 07/09/20 18:55 [place] # (Auto) 1.00 K/uL (0.11-0.59) H 07/09/20 18:55 Eos # (Auto) 0.10 K/uL (0-0.5) 07/09/20 18:55 Baso # (Auto) 0.05 K/uL (0-0.2) 07/09/20 18:55 Immature Gran # (Auto) 0.08 K/uL (0.00-0.02) H 07/09/20 18:55 PT 11.2 Seconds (9.0-12.0) 07/09/20 18:55 INR 1.1 (0.9-1.1) 07/09/20 18:55 APTT 27.0 Seconds (21.0-31.0) 07/09/20 18:55 PTT Ratio 1.0 07/09/20 18:55 Sodium 137 mmol/L (136-145) 07/09/20 18:55 Potassium 3.1 mmol/L (3.5-5.1) L 07/09/20 18:55 Chloride 101 mmol/L (98-107) 07/09/20 18:55 Carbon Dioxide 24 mmol/L (21-32) 07/09/20 18:55 Anion Gap 12.0 (3-11) H 07/09/20 18:55 BUN 3 mg/dl (7-18) L 07/09/20 18:55 Creatinine 0.50 mg/dl (0.6-1.2) L 07/09/20 18:55 Est Cr Clr Drug Dosing 159.6 ml/min 07/09/20 18:55 Est GFR ( Amer) 136.4 07/09/20 18:55 Est GFR (Non-Af Amer) 117.7 07/09/20 18:55 BUN/Creatinine Ratio 5.2 (10-20) L 07/09/20 18:55 Glucose 108 mg/dl (70-99) H 07/09/20 18:55 Calcium 9.6 mg/dl (8.5-10.1) 07/09/20 18:55 Magnesium 2.0 mg/dl (1.8-2.4) 07/09/20 18:55 Total Bilirubin 0.9 mg/dl (0.2-1) 07/09/20 18:55 AST 34 U/L (15-37) 07/09/20 18:55 ALT 26 U/L (12-78) 07/09/20 18:55 Alkaline Phosphatase 169 U/L (45-117) H 07/09/20 18:55 Troponin I < 0.015 ng/ml (0-0.045) 07/09/20 18:55 Total Protein 7.4 gm/dl (6.4-8.2) 07/09/20 18:55 Albumin 3.1 gm/dl (3.4-5.0) L 07/09/20 18:55 Globulin 4.3 gm/dl (2.5-4.0) H 07/09/20 18:55 Albumin/Globulin Ratio 0.7 (0.9-2) L 07/09/20 18:55 Lipase 64 U/L (73-393) L 07/09/20 18:55 COVID-19 Eval Order [facility] 07/09/20 22:[address] head: 1. No acute intracranial abnormality. 2. Interval right-sided craniotomy changes with decreased vasogenic edema surrounding the known intracranial metastasis of the right cerebral hemisphere resulting in decreased mass effect with decreased leftward midline shift. 3. 4 mm extra-axial collection and adjacent to the right cerebral convexity near the craniotomy site is likely postsurgical. CT chest, EKG as per my interpretation rate 105, sinus tachycardia, normal axis, T wave abnormality septal leads EKG abdomen pelvis: 1. No pulmonary emboli. 2. No bowel obstruction or bowel wall thickening. 3. Malignant mass involving the right upper lobe crossing the fissure extending into the right lower lobe is redemonstrated measuring over 5 cm in size. 4. There is progressive metastatic disease within the chest, abdomen and pelvis manifested by progressive lymphatic metastasis with new left greater than right adrenal metastasis. 5. Equivocal 1.4 cm intraluminal mass along the inferior posterior margin of the urinary bladder. EKG as per my interpretation rate 105, sinus tachycardia, normal axis, T wave abnormalities septal leads
[2020-07-09] MEDS ORDERED: MoRPHine SULFATE 2 MG/ML CARP IV PRN (22:59)
[2020-07-10] MEDS ORDERED: POLYETHYLENE (MIRALAX) 17 GM PACK PO PRN (00:07)
[2020-07-10] MEDS ORDERED: PROMETHAZINE HCL 12.5 MG in SODIUM CHLORIDE 0.9% 50 ML IV PRN (00:07)
[2020-07-10] MEDS ORDERED: POTASSIUM CHLORIDE 40 MEQ in SODIUM CHLORIDE 0.9% 1000ML 1,000 ML IV ONE (00:07)
[2020-07-10] MEDS ORDERED: MELATONIN 3 MG TAB PO PRN (00:07)
[2020-07-10] MEDS ORDERED: LORazepam 0.25 MG/0.5 ML VIAL IV PRN (00:07)
[2020-07-10] MEDS ORDERED: MoRPHine SULFATE 4 MG/ML 1 ML CARP\\VIAL IV PRN (00:22)
[2020-07-10] MEDS: DOCUSATE SODIUM/SENNA 50/8.6MG TAB PO SCH ×3 (00:55→20:03)
[2020-07-10] MEDS: oxyCODONE HCL IR 5 MG TAB (IMMEDIATE RELEASE) PO PRN ×3 (00:55→21:42)
[2020-07-10 06:40] LABS: Basophils # (auto) 0.03 K/uL (0-0.2); Basophils % (auto) 0.4 %; Eosinophils # (auto) 0.12 K/uL (0-0.5); Eosinophils % (auto) 1.4 %; Hematocrit (blood only) 39.8 % (37-47); Hemoglobin 13.4 g/dL (12.0-16.0); Immature Granulocytes # (auto) 0.08 K/uL (0.00-0.02); Lymphocytes # (auto) 1.34 K/uL (1.2-3.4); Lymphocytes % (auto) 16.1 %; Mean Corpuscular Hemoglobin 29.4 pg (25-34); Mean Corpuscular Hgb Conc 33.7 g/dL (32-36); Mean Corpuscular Volume 87.3 fL (80-100); Mean Platelet Volume 9.8 fL (7.4-10.4); Monocytes # (auto) 0.88 K/uL (0.11-0.59); Monocytes % (auto) 10.6 %; Neutrophils # (auto) 5.86 K/uL (1.4-6.5); Neutrophils % (auto) 70.5 %; Platelet Count 244 K/uL (130-400); RDW Coefficient of Variation 13.1 % (11.5-14.5); Red Blood Count 4.56 M/uL (4.2-5.4); White Blood Count 8.31 K/uL (4.8-10.8)
[2020-07-10 07:20] LABS: BUN Creatinine Ratio 5.4 (10-20); Calcium 8.8 mg/dl (8.5-10.1); Creatinine Clr Calc Pharmacy 181.4 ml/min; Est GFR (African American) 142.3; Est GFR (Non-African American) 122.8; Potassium 3.4 mmol/L (3.5-5.1)
[2020-07-10] MEDS: MoRPHine SULFATE CR 15 MG TABCR PO SCH ×2 (08:18→20:03)
[2020-07-10] MEDS: levETIRAcetam 500 MG TAB PO SCH ×2 (08:19→20:03)
[2020-07-10] MEDS: FOLIC ACID 1 MG TAB PO SCH (08:19)
--- NOTE | 2020-07-10 21:16 | Hospitalist Progress Note ---
Date of Service July 10, 2020 Assessment & Plan (1) Cancer related pain: hx NSCLC with brain mets status post brain tumor resection Progressive disease on updated imaging Patient not taking long-acting MS Contin as prescribed. Chemotherapy contemplated by [facility] oncologist history seizures, well-controlled on Keppra history TIA as per records Left breast cancer status post mastectomy, history BRCA gene mutation positivity Hypokalemia secondary to poor p.o. intake past tobacco abuse [facility] Patient counseled regarding importance of taking long-acting MS Contin as per schedule. Bowel regimen Pain management consult if without improvement Request a.m. provider to update patient oncologist (Dr. Barillas) regarding progressive disease on CAT scan and inquired about benefit of Radiation oncology consultation. Replace potassium, IVF DVT prophylaxis. SCDs RE brain mets Full code Text document was generated using [employer] voice recognition software. It may contain grammatical or spelling errors. Kindly contact undersigned for clarification of any documentation item in ques tion. Admission and Anticipated Discharge Date Admission Date: July 09, 2020 Results & Data Results & Data ([facility]) Vital Signs (Past 12 Hours) Vital Signs Temp Pulse Resp BP Pulse Ox 07/10/20 19:38 36.6 C 101 H 18 106/71 94 07/10/20 14:54 36.3 C L 95 H 18 112/76 91
--- NOTE | 2020-07-11 05:50 | Electrocardiogram Report ---
Test Reason : Blood Pressure : / mmHG Vent. Rate : 103 BPM Atrial Rate : 103 BPM P-R Int : 124 ms QRS Dur : 074 ms QT Int : 320 ms P-R-T Axes : 034 088 060 degrees QTc Int : 419 ms Poor data quality, interpretation may be adversely affected Sinus tachycardia Otherwise normal ECG When compared with ECG of 19-JUN-2020 04:47, No significant change was found Confirmed by Dillan Mckinney ([id number]) on 07/11/2020 5:49:51 AM Referred By: REFERRED SELF Confirmed By:Dillan Mckinney
[2020-07-11] MEDS: oxyCODONE HCL IR 5 MG TAB (IMMEDIATE RELEASE) PO PRN ×4 (06:12→23:28)
[2020-07-11] MEDS: MoRPHine SULFATE CR 15 MG TABCR PO SCH ×2 (09:07→20:38)
[2020-07-11] MEDS: levETIRAcetam 500 MG TAB PO SCH ×2 (09:07→20:38)
[2020-07-11] MEDS: DOCUSATE SODIUM/SENNA 50/8.6MG TAB PO SCH ×2 (09:07→20:39)
[2020-07-11] MEDS: FOLIC ACID 1 MG TAB PO SCH (09:07)
--- NOTE | 2020-07-11 17:50 | Hospitalist Progress Note ---
Date of Service July 11, 2020 Assessment & Plan (1) Cancer related pain: intractable pain due to metastatic cancer Patient counseled regarding importance of taking long-acting MS Contin as per schedule. agreeable Bowel regimen cont to titrate bowel regimen as indicated history seizures, well-controlled on Keppra history TIA as per records Left breast cancer status post mastectomy, history BRCA gene mutation positivity no Sz episode , cont on home meds Cerebral vasogenic edema CT head: 1. No acute intracranial abnormality. 2. Interval right-sided craniotomy changes with decreased vasogenic edema surrounding the known intracranial metastasis of the right cerebral hemisphere resulting in decreased mass effect with decreased leftward midline shift. 3. 4 mm extra-axial collection and adjacent to the right cerebral convexity near the craniotomy site is likely postsurgical.". hx NSCLC with brain mets status post brain tumor resection Progressive disease on updated imaging Chemotherapy contemplated by [facility] oncologist DNR/DNI Disposition: PT/OT eval return home when medically stable Admission and Anticipated Discharge Date Admission Date: July 09, 2020 Subjective follow up visit for intractable Cancer pain : pt reports her back and shoulder pain is better controlled with current pain regimen very forgetful no headache no fever or chills Review of Systems Review of Systems: All systems reviewed & are unremarkable except as noted in Subjective Physical Exam Constitutional: WD/WN, vitals as above + ill appearing Eyes: + anicteric sclerae ENMT: external ear and nose normal, oropharynx normal Neck: trachea midline, no thyromegaly Respiratory: normal respiratory effort, lungs clear to auscultation Cardiovascular: RRR, no murmur, no edema Gastrointestinal (Abdomen): Percussion/Palpation: abdomen soft; abdomen nontender Musculoskeletal: generelized weakness Skin: no rashes, warm and dry Neurologic: + confused; no focal motor deficits Psychiatric: Orientation: alert, oriented to person and oriented to place Results & Data Results & Data ([facility]) Vital Signs (Past 12 Hours) Vital Signs Temp Pulse Resp BP Pulse Ox 07/11/20 15:20 37 C 92 H 18 116/81 93 07/11/20 11:48 37.0 C 93 H 18 107/69 95 07/11/20 08:00 36.8 C 92 H 20 109/70 94
[2020-07-12] MEDS: oxyCODONE HCL IR 5 MG TAB (IMMEDIATE RELEASE) PO PRN ×4 (05:54→23:57)
[2020-07-12] MEDS: FOLIC ACID 1 MG TAB PO SCH (08:38)
[2020-07-12] MEDS: levETIRAcetam 500 MG TAB PO SCH ×2 (08:38→20:48)
[2020-07-12] MEDS: MoRPHine SULFATE CR 15 MG TABCR PO SCH ×2 (08:38→20:48)
[2020-07-12] MEDS: DOCUSATE SODIUM/SENNA 50/8.6MG TAB PO SCH ×2 (08:38→20:49)
--- NOTE | 2020-07-12 19:13 | Hospitalist Progress Note ---
Date of Service July 12, 2020 Assessment & Plan (1) Cancer related pain: intractable pain due to metastatic cancer Patient counseled regarding importance of taking long-acting MS Contin as per schedule. agreeable -has been receiving MS Contin 15 mg BID schedule ordered for PRN oxycodone per nursing pt is very forgetful has requested few doses of PRN pain meds for break through pain appears much comfortable today Bowel regimen cont to titrate bowel regimen as indicated history seizures, well-controlled on Keppra history TIA as per records Left breast cancer status post mastectomy, history BRCA gene mutation positivity no Sz episode , cont on home meds /Keppra Cerebral vasogenic edema CT head: 1. No acute intracranial abnormality. 2. Interval right-sided craniotomy changes with decreased vasogenic edema surrounding the known intracranial metastasis of the right cerebral hemisphere resulting in decreased mass effect with decreased leftward midline shift. 3. 4 mm extra-axial collection and adjacent to the right cerebral convexity near the craniotomy site is likely postsurgical.". hx NSCLC with brain mets status post brain tumor resection Progressive disease on updated imaging Chemotherapy [place] [facility] [place] DNR/DNI Disposition: PT/OT eval return home when medically stable Admission and Anticipated Discharge Date Admission Date: July 09, 2020 Subjective follow up visit for intractable Cancer pain : had back pain earlier , pain improved after taking PRN oxycodon ordered scheduled MS Contin no nausea or vomiting no fever or chills Physical Exam Constitutional: WD/WN, vitals as above + ill appearing Eyes: + anicteric sclerae ENMT: external ear and nose normal, oropharynx normal Neck: trachea midline, no thyromegaly Respiratory: normal respiratory effort, lungs clear to auscultation Cardiovascular: RRR, no murmur, no edema Gastrointestinal (Abdomen): Percussion/Palpation: abdomen soft; abdomen nontender Skin: no rashes, warm and dry Neurologic: + confused; no focal motor deficits Psychiatric: Orientation: alert, oriented to person and oriented to place Results & Data Results & Data ([facility]) Vital Signs (Past 12 Hours) Vital Signs Temp Pulse Resp BP Pulse Ox 07/12/20 19:06 36.7 C 100 H 16 134/84 97 07/12/20 15:14 37 C 106 H 17 124/79 95
[2020-07-13] MEDS: oxyCODONE HCL IR 5 MG TAB (IMMEDIATE RELEASE) PO PRN ×4 (05:11→22:05)
[2020-07-13] MEDS: MoRPHine SULFATE CR 15 MG TABCR PO SCH ×2 (08:47→20:20)
[2020-07-13] MEDS: DOCUSATE SODIUM/SENNA 50/8.6MG TAB PO SCH ×2 (08:47→20:21)
[2020-07-13] MEDS: FOLIC ACID 1 MG TAB PO SCH (08:47)
[2020-07-13] MEDS: levETIRAcetam 500 MG TAB PO SCH ×2 (08:47→20:20)
[2020-07-13] MEDS ORDERED: POLYETHYLENE (MIRALAX) 17 GM PACK PO SCH (09:00)
--- NOTE | 2020-07-13 15:02 | Hospitalist Progress Note ---
Date of Service delayed entry date of service 07/10/20 July 13, 2020 Assessment & Plan (1) Back pain: (2) Metastatic lung carcinoma: (1) Cancer related pain: hx NSCLC with brain mets status post brain tumor resection - continue MS Contin and Oxycodone PRN monitor closely for response and possibe side effects history seizures, well-controlled on Keppra history TIA as per records Left breast cancer status post mastectomy, history BRCA gene mutation positivity Hypokalemia secondary to poor p.o. intake - replace PRN past tobacco abuse DVT prophylaxis. SCDs RE brain mets Full code plan of care discussed with patient in detail and at length all questions answered she is understanding, agreeable, comfortable with the plan of care Admission and Anticipated Discharge Date Admission Date: July 09, 2020 Subjective ff up for uncontrolled pain, etc seen resting in bed, comfortable not in distress states she feels improved compared to admission tolerating MS contin well so far no headache, dizziness, chest pain, palpitations, abdominal pain, nausea no other symptoms Review of Systems Review of Systems: All systems reviewed & are unremarkable except as noted in Subjective Physical Exam Physical Exam: General- oriented x 3, not in distress, speaks in sentences with no effort or accessory muscle use Head- atraumatic Eyes- PERRL, EOMI, anicteric ENT- oropharynx clear Neck- supple, no JVD, no adenopathy, no thyromegaly; carotids +2/2, no bruits appreciated Lungs- clear to auscultation bilaterally, no rales/wheezes Heart- normal rate, regular rhythm; no murmur, no gallop, no rub appreciated Abdomen- normal bowel sounds, nondistended, soft, nontender, no masses or hepatosplenomegaly Extremities- no pretibial edema, no calf tenderness; peripheral pulses intact Neuro- alert, oriented x 3; CN 2-12 grossly intact; motor 5/5 bilaterally;sensation 100% on all extremities; no other gross focal neurologic deficits Skin- warm & dry Results & Data Results & Data ([facility]) Vital Signs (Past 12 Hours) Vital Signs Temp Pulse Resp BP Pulse Ox 07/13/20 08:14 36.9 C 109 H 18 123/62 99 all noted and reviewed including below (1) Back pain Back pain laterality: right Back pain location: thoracic back pain Chronicity: acute Qualified Code(s): M54.6 - Pain in thoracic spine (2) Metastatic lung carcinoma Laterality: right Qualified Code(s): C78.01 - Secondary malignant neoplasm of right lung
--- NOTE | 2020-07-13 17:03 | Hospitalist Progress Note ---
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 - continue MS Contin and Oxycodone PRN pts pain is very poorly controlled refusing pain meds will consult pain management pt is followed with [facility] onc Dr Barillas , CT abdomen pelvis shows progression of disease spoke with inquiring about when pt will be started on next chemo tx chemo tx has to be done out pt at Heme/onc clnic pt needs to be medically stable , pain well controlled to be discharged will try to co 0ordiante care with Heme onc history seizures, on keppra no sz episode history TIA as per records Left breast cancer status post mastectomy, history BRCA gene mutation positivity Hypokalemia secondary to poor p.o. intake - replace PRN past tobacco abuse DVT prophylaxis. SCDs RE brain mets Full code updated over phone Admission and Anticipated Discharge Date Admission Date: July 09, 2020 Subjective follow up visit for intractable Cancer pain : pt is crying in distress , for back and shoulder pain refusing pain meds says " the bed is very uncomfortable " making her pain worse got Oxycodone 5 mg 30 mins back , rates pain 8/10 refused to take any additional pain meds ordered PRN roxanol , and Ativan for anxiety -refused ordered Fentanyl patch -refused Review of Systems Review of Systems: All systems reviewed & are unremarkable except as noted in Subjective Physical Exam Constitutional: WD/WN, vitals as above + ill appearing Eyes: + anicteric sclerae ENMT: external ear and nose normal, oropharynx normal Neck: trachea midline, no thyromegaly Respiratory: normal respiratory effort, lungs clear to auscultation Cardiovascular: RRR, no murmur, no edema Gastrointestinal (Abdomen): Percussion/Palpation: abdomen soft; abdomen nontender Skin: no rashes, warm and dry Neurologic: + confused; no focal motor deficits Psychiatric: Orientation: alert, oriented to person and oriented to place Results & Data Results & Data ([facility]) Vital Signs (Past 12 Hours) Vital Signs Temp Pulse Resp BP Pulse Ox 07/13/20 08:14 36.9 C 109 H 18 123/62 99 (1) Metastatic lung carcinoma Laterality: right Qualified Code(s): C78.01 - Secondary malignant neoplasm of right lung (2) Back pain Back pain laterality: right Back pain location: thoracic back pain Chronicity: acute Qualified Code(s): M54.6 - Pain in thoracic spine
[2020-07-13] MEDS ORDERED: SOD PHOSPHATE/SOD BIPHOSPHATE ENEMA 132 ML BTL PR PRN (17:27)
[2020-07-13] MEDS ORDERED: LORazepam 0.5 MG TAB PO STA (17:53)
[2020-07-13] MEDS ORDERED: MoRPHine SULFATE 10 MG/0.5 ML UDP PO STA (17:56)
[2020-07-13] MEDS ORDERED: MoRPHine SULFATE 10 MG/0.5 ML UDP PO PRN (17:57)
[2020-07-13] MEDS ORDERED: fentaNYL 12 MCG/HR TDSY TD SCH (19:00)
[2020-07-13] MEDS: POLYETHYLENE (MIRALAX) 17 GM PACK PO SCH (20:15)
[2020-07-13] MEDS: DOCUSATE SODIUM 100 MG CAP PO SCH (20:15)
[2020-07-14] MEDS: CHECK fentaNYL PATCH PLACEMENT SCH ×2 (00:06→09:07)
[2020-07-14] MEDS: oxyCODONE HCL IR 5 MG TAB (IMMEDIATE RELEASE) PO PRN ×3 (03:18→19:40)
[2020-07-14] MEDS: FOLIC ACID 1 MG TAB PO SCH (09:05)
[2020-07-14] MEDS: DOCUSATE SODIUM 100 MG CAP PO SCH ×2 (09:05→20:05)
[2020-07-14] MEDS: MoRPHine SULFATE CR 15 MG TABCR PO SCH ×2 (09:05→20:10)
[2020-07-14] MEDS: levETIRAcetam 500 MG TAB PO SCH ×2 (09:05→20:11)
[2020-07-14] MEDS: DOCUSATE SODIUM/SENNA 50/8.6MG TAB PO SCH ×3 (09:09→20:05)
[2020-07-14] MEDS: POLYETHYLENE (MIRALAX) 17 GM PACK PO SCH ×4 (09:09→20:05)
--- NOTE | 2020-07-14 10:54 | Communication Note ---
Date of Service: July 14, 2020 pt admitted with intractable abdominal pain /back and shoulder pain hx of metastatic lung ca with brain mets s/p craniotomy CT abdomen pelvis on admission reveals progression of metastatic disease : 1.There are new bilateral adrenal metastasis measuring 13 mm on the right and 2.0 x 2.5 cm on the left. Pathologic periportal, pericaval, retroperitoneal and mesenteric lymph nodes have progressively worsened. Index precaval lymph node measuring 2.7 x 1.8 cm previously measured 2.6 x 1.0 cm. 2. Malignant mass involving the right upper lobe crossing the fissure extending into the right lower lobe is redemonstarted measuring over 5 cm in size. 3. Equivocal 1.4 cm intraluminal mass along the inferior posterior margin of the urinary bladder. pt complains of progressive abdominal pain , no BM or able to pass gas since admission ordered bowel regimen , enema -pt refused concern for possible bowel obstruction , ordered for NPO xray KUB stat Bladder mass : metastatic cancer vs primary bladder CA check bladder scan to assess urinary retention ordered for UA including urine Cytology urology consult over all prognosis remains poor Intractable Cancer related pain : pain very poorly controlled , pt has been refusing pain meds intermittently then forgets that she refused pt noted to have cognitive impairment , personality change post craniotomy for metastatic brain lesion common occurrence -emotionally very labile , feels that no one is taking care of her pain and discomfort , later when offers pain meds -refusing it ; due to side effects? multiple counselling done by myself and the previous Hospitalist pt is usually very co operative and agreeable during conversation , then forgets and goes into cycle of pain and anxiety for refusing the meds difficult situation PRN Roxanol ordered -pt refused Fentanyl Patch ordered as she does not want to take PO meds -refused spoke with at length, at baseline pt always was very reluctant to take meds ,even tylenol as over phone tried to convince her to take whitney -she got upset pain management consulted will continue to provide supportive care to this unfortunate young pt , may consider Psych consult ( if pt is agreeable to address underlying depression /an xiety issues ) Pt's Primary Heme /Onc Dr Barillas is updated about cancer progression noted in abdomen pt is DNR/DNI plan of care discussed with Pt's over phone, all questions answered Naheed Shah MD
--- NOTE | 2020-07-14 11:06 | XRay Report ---
KUB CLINICAL HISTORY: Abdominal pain. COMPARISON STUDY: CT of the abdomen and pelvis July 09, 2020 2 FINDINGS: There are cholecystectomy clips. Pelvic calcifications reflect phleboliths. There is no marcus dence for a bowel obstruction. Moderate amount stool is noted. No urinary calculi are identified. IMPRESSION: 1. No evidence for a bowel obstruction. 2. Moderate amount of stool within the colon and rectum. ACT 112: Negative or not required by law. Electronically signed by: German Grimaldo M.D. 07/14/2020 11:05 AM
--- NOTE | 2020-07-14 11:36 | Communication Note ---
Date of Service: July 14, 2020 Xray of KUB reviewed : 1. No evidence for a bowel obstruction. 2. Moderate amount of stool within the colon and rectum. resume diet : ordered clears only as pt reports poor appetite due to abdominal pain and distention aggressive bowel regimen ordered : Dulcolax 10 mg stat ordered wil bowel prep Relistor sc for narcotic induced constipation Naheed Shah MD
[2020-07-14] MEDS ORDERED: bisacodyL 5 MG TABEC PO ONE (11:37)
[2020-07-14] MEDS ORDERED: LAVAGE SOLUTION 4000ML PO SCH (12:00)
[2020-07-14] MEDS ORDERED: METHYLNALTREXONE BROMIDE 12 MG/0.6 ML VIAL SQ SCH (12:00)
[2020-07-14 12:51] LABS: Appearance Urine Clear (Clear); Bilirubin Urine Negative (Negative); Blood Urine Negative (Negative); Color Urine Yellow; Glucose Urine UA Negative (Negative); Ketones Urine Negative (Negative); Leukocyte Esterase Urine Negative (Negative); Nitrite Urine Negative (Negative); Protein Urine Negative (Negative); Specific Gravity Urine 1.005 (1.000-1.030); Urobilinogen Urine Negative (Negative)
--- NOTE | 2020-07-14 12:52 | Urology Consultation ---
Date of Consultation July 14, 2020 Assessment & Plan (1) Metastatic lung carcinoma: (2) Bladder mass: Pt has a small bladder nodule. 1.4cm. Check urine cytology. PVR as indicated based on voiding. Given her overall clinical picture, I don't think this growth in her bladder is overly concerning. If the patient and wish to proceed with additional diagnostics of this mass, an outpatient cysto and bladder biopsy can be performed. History of Present Illness Attending Physician: Naheed Shah MD 45 y/o female with advanced malignancy. See EMR for complete oncologic history. Recent CT scan showed a 1.4 nodule in bladder. No hx of bladder ca in the past. Pt unable to give any specific hx at this time due to her clinical condition. Due to the mass in bladder, Urology was consulted. Allergies Allergy/AdvReac Type Severity Reaction Status Date / Time Penicillins Allergy Intermediate SWELLS Verified 07/02/20 02:16 Home Medications Medication Instructions Recorded Confirmed Type levetiracetam 1,000 mg PO BID 07/02/20 07/09/20 History duloxetine 30 mg PO QAM #30 cap 07/03/20 07/09/20 Rx dexamethasone 4 mg PO .BID/UD 07/09/20 07/09/20 History folic acid 1 mg PO DAILY 07/09/20 07/09/20 History morphine [MS Contin] 15 mg PO Q12H 07/09/20 07/09/20 History ondansetron 4 mg TRANSLINGUAL Q8H PRN 07/09/20 07/09/20 History ondansetron 8 mg PO Q8H PRN 07/09/20 07/09/20 History oxycodone 5 mg PO Q6 PRN 07/09/20 07/09/20 History prochlorperazine maleate 10 mg PO Q6H PRN 07/09/20 07/09/20 History tramadol 25 mg PO Q6H PRN 07/09/20 07/09/20 History Patient History Medical History Cancer related pain Surgical History H/O bilateral mastectomy H/O craniotomy H/O: hysterectomy History of cholecystectomy Social History Second Hand Exposure: No; Do You Dip or Chew Tobacco: No; Hx Alcohol Use: No Hx Substance Use: No Preferred Language: Khmer Communication Ability: Effective Channel Development Director Required: No Beliefs That Will Affect Care: None marital status: Current Living Situation: Spouse How many Children do You have: 2 Feels Safe at Home: Yes Safety Concerns: Feels Safe At This Time Assistive Devices: Glasses Review of Systems Review of Systems: All systems reviewed & are unremarkable except as noted in HPI & below Physical Exam Constitutional: WD/WN, vitals as above Respiratory: normal respiratory effort, lungs clear to auscultation Cardiovascular: RRR, no murmur, no edema Skin: no rashes, warm and dry Lymphatic: no cervical or axillary lymphadenopathy Results & Data ([facility]) Vital Signs (Past 12 Hours) Vital Signs Temp Pulse Resp BP Pulse Ox 07/14/20 06:59 37 C 96 H 16 111/70 95 07/14/20 03:22 37.0 C 101 H 16 106/69 92 (1) Metastatic lung carcinoma Laterality: right Qualified Code(s): C78.01 - Secondary malignant neoplasm of right lung
[2020-07-14] MEDS ORDERED: LORazepam 0.5 MG TAB PO PRN (14:30)
--- NOTE | 2020-07-14 16:44 | Pain Management Consultation ---
Date of Consultation July 14, 2020 Assessment & Plan (1) Cancer related pain: Spoke with patient at bedside. She declines pain mgt consultation as she feels her pain is well controlled at this time. Please re-consult if you have further pain mgt needs. thanks (2) Brain metastases: (3) Metastatic lung carcinoma: Laterality: right Qualified Code(s): C78.01 - Secondary malignant neoplasm of right lung (4) Bladder mass: History of Present Illness Attending Physician: Naheed Shah MD Allergies Allergy/AdvReac Type Severity Reaction Status Date / Time Penicillins Allergy Intermediate SWELLS Verified 07/02/20 02:16 Home Medications Medication Instructions Recorded Confirmed Type levetiracetam 1,000 mg PO BID 07/02/20 07/09/20 History duloxetine 30 mg PO QAM #30 cap 07/03/20 07/09/20 Rx dexamethasone 4 mg PO .BID/UD 07/09/20 07/09/20 History folic acid 1 mg PO DAILY 07/09/20 07/09/20 History morphine [MS Contin] 15 mg PO Q12H 07/09/20 07/09/20 History ondansetron 4 mg TRANSLINGUAL Q8H PRN 07/09/20 07/09/20 History ondansetron 8 mg PO Q8H PRN 07/09/20 07/09/20 History oxycodone 5 mg PO Q6 PRN 07/09/20 07/09/20 History prochlorperazine maleate 10 mg PO Q6H PRN 07/09/20 07/09/20 History tramadol 25 mg PO Q6H PRN 07/09/20 07/09/20 History Patient History Medical History Cancer related pain Surgical History H/O bilateral mastectomy H/O craniotomy H/O: hysterectomy History of cholecystectomy Social History Second Hand Exposure: No; Do You Dip or Chew Tobacco: No; Hx Alcohol Use: No Hx Substance Use: No Preferred Language: Bahraini Communication Ability: Effective Creative Specialist Required: No Beliefs That Will Affect Care: None marital status: Current Living Situation: Spouse How many Children do You have: 2 Feels Safe at Home: Yes Safety Concerns: Feels Safe At This Time Assistive Devices: None
--- NOTE | 2020-07-14 17:56 | Hospitalist Progress Note ---
Date of Service July 14, 2020 Assessment & Plan (1) Back pain: (2) Metastatic lung carcinoma: (1) Cancer related pain: hx NSCLC with brain mets status post brain tumor resection - pt admitted with intractable abdominal pain /back and shoulder pain hx of metastatic lung ca with brain mets s/p craniotomy CT abdomen pelvis on admission reveals progression of metastatic disease : 1.There are new bilateral adrenal metastasis measuring 13 mm on the right and 2.0 x 2.5 cm on the left. Pathologic periportal, pericaval, retroperitoneal and mesenteric lymph nodes have progressively worsened. Index precaval lymph node measuring 2.7 x 1.8 cm previously measured 2.6 x 1.0 cm. 2. Malignant mass involving the right upper lobe crossing the fissure extending into the right lower lobe is redemonstarted measuring over 5 cm in size. 3. Equivocal 1.4 cm intraluminal mass along the inferior posterior margin of the urinary bladder. Heme Onc Dr Barillas updated regarding the CT finding pt was scheduled to have chemo tx on 07/12/20 once pt is discharged , next Heme onc follow up and treatment will be scheduled Severe constipation /due to narcotic pain meds pt complains of progressive abdominal pain , no BM or able to pass gas since admission ordered bowel regimen , enema pt does not want Ralistor willing to try Miralax and Colace xray of KUB; no bowel obstruction , moderate amount of stool in colon Bladder mass : incidental finding in CT abdomen appreciate Urology input , no indication for cystoscopy could be benign polyp out pt follow up with Urology of pt and her wants to persue Intractable Cancer related pain : pain very poorly controlled , pt has been refusing pain intermittently after discussing with her : does not want Fentanyl Patch -made her confused last time she received IV wants to stay on MC Contin 15 BID and in between Oxycodone 5 -10 mg PRN ( pt been utilizing 5 mg tablet only ) her pain and discomfort at present mostly due to constipation , thinks she will feel better after bowel movement does not want pain management consult history seizures, on keppra no sz episode history TIA as per records Left breast cancer status post mastectomy, history BRCA gene mutation positivity Hypokalemia secondary to poor p.o. intake - replace PRN past tobacco abuse DVT prophylaxis. SCDs RE brain mets plan of care discussed with Pt's over phone, all questions answered Admission and Anticipated Discharge Date Admission Date: July 09, 2020 Subjective follow up visit for intractable Cancer pain /metastatic Lung ca : appears to be more comfortable today reports her pain is mostly localized to her abdomen , due to constipation was ordered Golyttely prep -pt reports it is making her more nauseous took Colace , Dulcolax and Miralax this morning no complain of chest pain , back pain or SOB , no fever or chills Review of Systems Review of Systems: All systems reviewed & are unremarkable except as noted in Subjective Physical Exam Constitutional: WD/WN, vitals as above + ill appearing Eyes: + anicteric sclerae ENMT: external ear and nose normal, oropharynx normal Neck: trachea midline, no thyromegaly Respiratory: normal respiratory effort, lungs clear to auscultation Cardiovascular: RRR, no murmur, no edema Gastrointestinal (Abdomen): Inspection/Auscultation: + abdomen distended Percussion/Palpation: + abdomen tender and abdomen soft Skin: no rashes, warm and dry Neurologic: + confused; no focal motor deficits Psychiatric: Orientation: alert, oriented to person and oriented to place Results & Data Results & [facility] ([facility]) Vital Signs (Past 12 Hours) Vital Signs Temp Pulse Resp BP Pulse Ox 07/14/20 06:59 37 C 96 H 16 111/70 95 (1) Metastatic lung carcinoma Laterality: right Qualified Code(s): C78.01 - Secondary malignant neoplasm of right lung (2) Back pain Back pain laterality: right Back pain location: thoracic back pain Chronicity: acute Qualified Code(s): M54.6 - Pain in thoracic spine
[2020-07-15] MEDS: oxyCODONE HCL IR 5 MG TAB (IMMEDIATE RELEASE) PO PRN ×4 (03:15→21:06)
[2020-07-15] MEDS: DOCUSATE SODIUM 100 MG CAP PO SCH ×2 (08:36→20:01)
[2020-07-15] MEDS: DOCUSATE SODIUM/SENNA 50/8.6MG TAB PO SCH ×2 (08:36→20:01)
[2020-07-15] MEDS: FOLIC ACID 1 MG TAB PO SCH (08:36)
[2020-07-15] MEDS: POLYETHYLENE (MIRALAX) 17 GM PACK PO SCH ×4 (08:36→20:00)
[2020-07-15] MEDS: levETIRAcetam 500 MG TAB PO SCH ×2 (08:36→20:01)
[2020-07-15] MEDS: MoRPHine SULFATE CR 15 MG TABCR PO SCH ×2 (08:36→20:01)
--- NOTE | 2020-07-15 17:18 | Hospitalist Progress Note ---
Date of Service July 15, 2020 Assessment & Plan (1) Back pain: (2) Metastatic lung carcinoma: (1) Cancer related pain: hx NSCLC with brain mets status post brain tumor resection - pt admitted with intractable abdominal pain /back and shoulder pain hx of metastatic lung ca with brain mets s/p craniotomy CT abdomen pelvis on admission reveals progression of metastatic disease : 1.There are new bilateral adrenal metastasis measuring 13 mm on the right and 2.0 x 2.5 cm on the left. Pathologic periportal, pericaval, retroperitoneal and mesenteric lymph nodes have progressively worsened. Index precaval lymph node measuring 2.7 x 1.8 cm previously measured 2.6 x 1.0 cm. 2. Malignant mass involving the right upper lobe crossing the fissure extending into the right lower lobe is redemonstarted measuring over 5 cm in size. 3. Equivocal 1.4 cm intraluminal mass along the inferior posterior margin of the urinary bladder. Heme Onc Dr Barillas updated regarding the CT finding pt was scheduled to have chemo tx on 07/12/20 once pt is discharged , next Heme onc follow up and treatment will be scheduled Severe constipation /due to narcotic pain meds pt complains of progressive abdominal pain , no BM or able to pass gas since admission xray of KUB; no bowel obstruction , moderate amount of stool in colon ordered bowel regimen , enema pt does not want Ralistor had BM yesterday after enema Bladder mass : incidental finding in CT abdomen appreciate Urology input , no indication for cystoscopy could be benign polyp out pt follow up with Urology of pt and her wants to persue Intractable Cancer related pain : pain very poorly controlled , pt has been refusing pain intermittently after discussing with her : does not want Fentanyl Patch -made her confused last time she received IV wants to stay on MC Contin 15 BID and in between Oxycodone 5 -10 mg PRN ( pt been utilizing 5 mg tablet only ) her pain and discomfort at present mostly due to constipation , given multiple stool softer had BM yesterday after getting Enema abdominal pain /discomfort much improved now history seizures, on keppra no sz episode history TIA as per records Left breast cancer status post mastectomy, history BRCA gene mutation positivity Hypokalemia secondary to poor p.o. intake - replace PRN past tobacco abuse DVT prophylaxis. SCDs RE brain mets Disposition : plan to discharge home tomorrow if pain remains controlled Admission and Anticipated Discharge Date Admission Date: July 09, 2020 Subjective follow up visit for intractable Cancer pain /metastatic Lung ca : appears to be more comfortable today had BM after getting enema yesterday no complain of chest pain , back pain or SOB , no fever or chills Review of Systems Review of Systems: All systems reviewed & are unremarkable except as noted in Subjective Physical Exam Constitutional: WD/WN, vitals as above + ill appearing Eyes: + anicteric sclerae ENMT: external ear and nose normal, oropharynx normal Neck: trachea midline, no thyromegaly Respiratory: normal respiratory effort, lungs clear to auscultation Cardiovascular: RRR, no murmur, no edema Gastrointestinal (Abdomen): Inspection/Auscultation: + abdomen distended Percussion/Palpation: + abdomen tender and abdomen soft Skin: no rashes, warm and dry Neurologic: + confused; no focal motor deficits Psychiatric: Orientation: alert, oriented to person and oriented to place Results & Data Results & Data ([facility]) Vital Signs (Past 12 Hours) Vital Signs Temp Pulse Resp BP Pulse Ox 07/15/20 07:44 36.9 C 113 H 14 112/81 96 (1) Metastatic lung carcinoma Laterality: right Qualified Code(s): C78.01 - Secondary malignant neoplasm of right lung (2) Back pain Back pain laterality: right Back pain location: thoracic back pain Chronicity: acute Qualified Code(s): M54.6 - Pain in thoracic spine
[2020-07-16] MEDS: oxyCODONE HCL IR 5 MG TAB (IMMEDIATE RELEASE) PO PRN ×3 (03:08→12:57)
[2020-07-16] MEDS: POLYETHYLENE (MIRALAX) 17 GM PACK PO SCH ×3 (08:14→13:55)
[2020-07-16] MEDS: DOCUSATE SODIUM/SENNA 50/8.6MG TAB PO SCH (08:14)
[2020-07-16] MEDS: DOCUSATE SODIUM 100 MG CAP PO SCH (08:14)
[2020-07-16] MEDS: levETIRAcetam 500 MG TAB PO SCH (08:15)
[2020-07-16] MEDS: FOLIC ACID 1 MG TAB PO SCH (08:15)
[2020-07-16] MEDS: MoRPHine SULFATE CR 15 MG TABCR PO SCH (08:21)
--- NOTE | 2020-07-16 14:13 | Communication Note ---
Date of Service: July 16, 2020 pt will be discharged home today lab work : CBC with diff , coags and CMP ordered prior to discharge Naheed Shah MD
[2020-07-16 14:40] LABS: Basophils # (auto) 0.02 K/uL (0-0.2); Basophils % (auto) 0.3 %; Eosinophils # (auto) 0.09 K/uL (0-0.5); Eosinophils % (auto) 1.2 %; Hemoglobin 12.3 g/dL (12.0-16.0); Immature Granulocytes # (auto) 0.02 K/uL (0.00-0.02); Immature Granulocytes % (auto) 0.3 %; Lymphocytes % (auto) 20.6 %; Mean Corpuscular Hemoglobin 29.9 pg (25-34); Mean Corpuscular Volume 87.4 fL (80-100); Mean Platelet Volume 9.8 fL (7.4-10.4); Monocytes # (auto) 0.92 K/uL (0.11-0.59); Monocytes % (auto) 11.9 %; Neutrophils # (auto) 5.11 K/uL (1.4-6.5); Neutrophils % (auto) 65.7 %; Platelet Count 277 K/uL (130-400); RDW Coefficient of Variation 13.1 % (11.5-14.5); RDW Standard Deviation 42.1 fL (36.4-46.3); Red Blood Count 4.12 M/uL (4.2-5.4); White Blood Count 7.76 K/uL (4.8-10.8)
[2020-07-16 14:44] LABS: Mean Corpuscular Hgb Conc 34.2 g/dL (32-36)
[2020-07-16 14:49] LABS: Albumin Level 2.6 gm/dl (3.4-5.0); BUN Creatinine Ratio 7.8 (10-20); Calcium 8.6 mg/dl (8.5-10.1); Est GFR (African American) 136.4; Est GFR (Non-African American) 117.7; INR 1.1 (0.9-1.1); Potassium 3.5 mmol/L (3.5-5.1)
[2020-07-16 14:51] LABS: Albumin Globulin Ratio 0.7 (0.9-2); Bilirubin,Total 0.5 mg/dl (0.2-1); Globulin 3.9 gm/dl (2.5-4.0); Total Protein 6.5 gm/dl (6.4-8.2)
--- NOTE | 2020-07-16 15:30 | Discharge Summary ---
Date of Service July 16, 2020 Admission HPI Per Admitting Provider History obtained from patient, family, and records. Medical history significant for NSCLC with brain mets status post brain tumor resection, history seizures, history TIA, breast cancer status post mastectomy, history BRCA gene mutation positivity, past tobacco abuse. Recent confinement last week for uncontrolled cancer pain. Patient seen by Pain management. Discharged on OxyContin twice daily and OxyIR as needed prescriptions. Patient insurance refused OxyContin. MS Contin alternative procured only 2 days ago by patient. Uncontrolled right chest pain going to her shoulder the last few days not fully relieved by OxyIR as needed. Slight headache with dizziness symptoms no nausea, no vomiting. Poor appetite. Patient sparingly taking MS Contin. Not taking medication twice daily as prescribed. Pain inadequately controlled by OxyIR. Patient losing sleep. Fair appetite. Occasional constipation. Intractable pain at the ER. 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 Principal Diagnosis Metastatic Lung cancer with mets to brain metastatic abdomen lesion intractable cancer related pain Narcotic pain medication induced severe constipation Discharge Exam Constitutional WD/WN, vitals as above + ill appearing Eyes + anicteric sclerae ENMT external ear and nose normal, oropharynx normal Neck trachea midline, no thyromegaly Respiratory normal respiratory effort, lungs clear to auscultation Cardiovascular RRR, no murmur, no edema Gastrointestinal (Abdomen) Inspection/Auscultation: + abdomen distended Percussion/Palpation: + abdomen tender and abdomen soft Skin no rashes, warm and dry Neurologic + confused; no focal motor deficits Psychiatric Orientation: alert, oriented to person and oriented to place Discharge Data Allergies Allergy/AdvReac Type Severity Reaction Status Date / Time Penicillins Allergy Intermediate SWELLS Verified 07/02/20 02:16 Consultations 07/09/20 21:47 ED Decision to Admit Stat 07/14/20 10:58 Consult Hematology Routine Ordered Studies 07/09/20 20:10 CT abd pelvis IV con only Stat CT angio chest PE protocol Stat CT head/brain wo con Stat Hospital Course (1) Back pain: (2) Metastatic lung carcinoma: (1) Cancer related pain: hx NSCLC with brain mets status post brain tumor resection - pt admitted with intractable abdominal pain /back and shoulder pain hx of metastatic lung ca with brain mets s/p craniotomy CT abdomen pelvis on admission reveals progression of metastatic disease : 1.There are new bilateral adrenal metastasis measuring 13 mm on the right and 2.0 x 2.5 cm on the left. Pathologic periportal, pericaval, retroperitoneal and mesenteric lymph nodes have progressively worsened. Index precaval lymph node measuring 2.7 x 1.8 cm previously measured 2.6 x 1.0 cm. 2. Malignant mass involving the right upper lobe crossing the fissure extending into the right lower lobe is redemonstarted measuring over 5 cm in size. 3. Equivocal 1.4 cm intraluminal mass along the inferior posterior margin of the urinary bladder. Heme Onc Dr Barillas updated regarding the CT finding pt was scheduled to have chemo tx on 07/12/20 once pt is discharged , next Heme onc follow up and treatment will be scheduled pt is medically stable to be discharged home toady Lab work : CBC , CMP this AM -normal study Heme onc team updated Severe constipation /due to narcotic pain meds resolved after bowel regimen pt complains of progressive abdominal pain , no BM or able to pass gas since admission xray of KUB; no bowel obstruction , moderate amount of stool in colon ordered bowel regimen , enema had BM yesterday after enema /feels comfortable pt is counselled to take stool softener while taking pain meds to prevent constipation Bladder mass : incidental finding in CT abdomen appreciate Urology input , no indication for cystoscopy could be benign polyp out pt follow up with Urology as needed for symptoms Intractable Cancer related pain : pain better controlled with long acting Morphine /MS contin 15 mg BID and Oxycodone 5 mg Q 4hrs as need for breakthrough pain continue bowel regimen with pain meds , pt is aware abdominal pain /discomfort much improved now after Bowel movement history seizures, on keppra no sz episode history TIA as per records Left breast cancer status post mastectomy, history BRCA gene mutation positivity Hypokalemia secondary to poor p.o. intake - replace PRN past tobacco abuse DVT prophylaxis. SCDs RE brain mets Disposition : pt is stable to be discharged home today Total Time Total Time Spent Total Time Spent (In Minutes): 35 mins Total Time Includes: Examination of the Patient, Discharge Planning and Medication Reconciliation Discharge Plan Discharge Items Patient Disposition: Home - Home Health Services Reason For Visit: UNCONTROLLED CANCER PAIN Discharge Diagnosis: Metastatic Lung cancer with mets to brain metastatic abdomen lesion intractable cancer related pain Narcotic pain medication induced severe constipation Activity: As commented below Activity Comment: as tolerated Non-emergency contact: Primary Care Provider Call non-emergency contact if: you have any medication questions Follow-up/Referrals: Mark Phelps [Primary Care Provider] - Jasiel Fritz DO [Physician] - 07/20/20 1:40 pm (Date & Time 07/20/2020 1:40 PM Provider Jasiel Fritz DO Department [facility] ) Lilly Barillas MD [Hospitalist] - Diet: Regular Addtl Attending Provider Instructions: continue to take stool softener : Colace , Miralax, senna to prevent constipatio n follow up with Hematology /Oncology to discuss regarding progression of cancer noted in CT abdomen /pelvis scan and next treatment options Pending Studies at Discharge: No Stand-Alone Forms: My Link Trigger, Smoking Cessation Medications and DC Order Prescriptions: New polyethylene glycol 3350 [Miralax] 17 gram Powder In Packet 17 g PO QID 30 Days Qty: 0 RF: 0 sennosides-docusate sodium [Senokot-S] 8.6-50 mg Tablet 1 tab PO BID 30 Days Qty: 60 RF: 0 melatonin 3 mg Tablet 3 mg PO HS PRN30 Days Qty: 0 RF: 0 lorazepam 0.5 mg Tablet 0.5 mg PO Q8 PRN (Reason: Anxiety) Qty: 30 RF: 0 Enema Disposable 19-7 gram/118 mL Enema 132 ml DE DAILY PRN30 Days Qty: 0 RF: 0 docusate sodium 100 mg Capsule 100 mg PO BID 30 Days Qty: 0 RF: 0 morphine 15 mg Tablet Extended Release 15 mg PO Q12H Qty: 60 RF: 0 Continued levetiracetam 500 mg tablet 1,000 mg PO BID RF: 0 duloxetine 30 mg Capsule,Delayed Release(Dr/Ec) 30 mg PO QAM Qty: 30 RF: 0 folic acid 1 mg Tablet 1 mg PO DAILY RF: 0 ondansetron 8 mg Tablet,Disintegrating 8 mg PO Q8H PRN (Reason: Nausea) RF: 0 prochlorperazine maleate 10 mg Tablet 10 mg PO Q6H PRN (Reason: Nausea) RF: 0 dexamethasone 4 mg Tablet 4 mg PO .BID/UD RF: 0 ondansetron 4 mg Tablet,Disintegrating 4 mg translingual Q8H PRN (Reason: Nausea) RF: 0 Changed oxycodone 5 mg tablet 5 mg PO Q4 PRN (Reason: pain) Qty: 90 RF: 0 Discontinued morphine [MS Contin] 15 mg Tablet Extended Release 15 mg PO Q12H RF: 0 tramadol 50 mg Tablet 25 mg PO Q6H PRN (Reason: Pain, Moderate) RF: 0 Discharge Orders: Discharge Order (Routine); Ordered 07/16/20 Ordered By: Naheed Salazar/Other Patient Handouts: Chronic Pain Therapies Mind Body Admission Data Admit Date/Time: 07/09/20 22:56 Attending Provider: Naheed Shah Admit Provider: George Us Primary Care Provider: Mark Phelps Other Providers: George Us ; Dread Mcgill ; Lilly Barillas Other Interventions: Discharge Summary Assessment (RN) Last Done: 07/16/20 14:45
== END 2020-07-16 16:20 | disposition home health service (06) ==
LOC: ED 18:21 → 2W 22:56 → INTOOBSV 22:56 → SUATTDRO 22:56 → 2W 23:46 → 3E 07-13 01:46

== ENCOUNTER 2020-07-23 17:07 | Observation (INO) ==
[2020-07-23] MEDS ORDERED: SODIUM CHLORIDE 0.9% 1000ML 1,000 ML IV ONE ×2 (17:39→18:49)
[2020-07-23] MEDS ORDERED: ONDANSETRON INJ 2 MG/ML 2 ML VIAL IV STA (17:39)
[2020-07-23 18:07] LABS: Basophils # (auto) 0.02 K/uL (0-0.2); Basophils % (auto) 0.2 %; Eosinophils # (auto) 0.03 K/uL (0-0.5); Eosinophils % (auto) 0.4 %; Hematocrit (blood only) 42.5 % (37-47); Hemoglobin 15.1 g/dL (12.0-16.0); Immature Granulocytes # (auto) 0.03 K/uL (0.00-0.02); Immature Granulocytes % (auto) 0.4 %; Lymphocytes # (auto) 1.01 K/uL (1.2-3.4); Lymphocytes % (auto) 11.9 %; Mean Corpuscular Hemoglobin 30.1 pg (25-34); Mean Corpuscular Hgb Conc 35.5 g/dL (32-36); Mean Corpuscular Volume 84.7 fL (80-100); Mean Platelet Volume 9.6 fL (7.4-10.4); Monocytes # (auto) 0.18 K/uL (0.11-0.59); Monocytes % (auto) 2.1 %; Platelet Count 268 K/uL (130-400); RDW Coefficient of Variation 12.9 % (11.5-14.5); RDW Standard Deviation 39.2 fL (36.4-46.3); Red Blood Count 5.02 M/uL (4.2-5.4); White Blood Count 8.47 K/uL (4.8-10.8)
[2020-07-23 18:17] LABS: INR 1.1 (0.9-1.1); Partial Thromboplastin Time 25.9 Seconds (21.0-31.0); Prothrombin Time 10.8 Seconds (9.0-12.0)
--- NOTE | 2020-07-23 18:27 | XRay Report ---
SINGLE VIEW CHEST CLINICAL HISTORY: Sepsis. FINDINGS: An AP, portable, upright chest radiograph is compared to study dated 07/09/2020. A left subc lavian central venous infusion port is in place. The cardiomediastinal silhouette is unremarkable. E mphysematous change is noted. A 5.4 cm mass lesion is again seen in the right upper lobe. There is no airspace consolidation typical for pneumonia or large pleural effusion. No pneumothorax is identifie d. The bony thorax is grossly intact. Postoperative change is seen in the left proximal humerus. IMPRESSION: 1. There is no airspace consolidation typical for pneumonia or pleural effusion. 2. A large mass lesion is again seen in the right midlung. 3. Emphysema. ACT 112: Negative or not required by law. Electronically signed by: Georges Aguirre M.D. 07/23/2020 6:26 PM
[2020-07-23 18:34] LABS: Alanine Aminotransferase 103 U/L (12-78); Albumin Level 3.2 gm/dl (3.4-5.0); Aspartate Aminotransferase 97 U/L (15-37); Blood Urea Nitrogen 6 mg/dl (7-18); Calcium 9.3 mg/dl (8.5-10.1); Carbon Dioxide 19 mmol/L (21-32); Chloride 101 mmol/L (98-107); Est GFR (African American) 136.4; Est GFR (Non-African American) 117.7; Glucose 100 mg/dl (70-99); Magnesium 2.1 mg/dl (1.8-2.4); Potassium 3.2 mmol/L (3.5-5.1); Sodium 133 mmol/L (136-145)
[2020-07-23 18:39] LABS: Albumin Globulin Ratio 0.7 (0.9-2); Alkaline Phosphatase 230 U/L (45-117); Bilirubin,Total 1.3 mg/dl (0.2-1); Globulin 4.6 gm/dl (2.5-4.0); Total Protein 7.8 gm/dl (6.4-8.2); Troponin I < 0.015 ng/ml (0-0.045)
[2020-07-23] MEDS ORDERED: CEFEPIME 2,000 MG/20 ML VIAL IV STA (19:05)
[2020-07-23] MEDS ORDERED: oxyCODONE HCL IR 5 MG TAB (IMMEDIATE RELEASE) PO STA (19:06)
[2020-07-23] MEDS ORDERED: SODIUM CHLORIDE 0.9% 1000ML 500 ML IV ONE (19:06)
[2020-07-23] MEDS ORDERED: MoRPHine SULFATE CR 15 MG TABCR PO STA (19:07)
[2020-07-23] MEDS: POTASSIUM CHLORIDE CRTAB 20 MEQ TABCR PO STA ×2 (19:41→19:52)
[2020-07-23] MEDS ORDERED: LACTATED RINGER'S 1,000 ML IV ONE (19:43)
[2020-07-23] MEDS ORDERED: levETIRAcetam 500 MG TAB PO STA (20:07)
[2020-07-23] MEDS ORDERED: DAPTOmycin 400 MG in SYRINGE 0 ML IV STA (20:10)
[2020-07-23] MEDS ORDERED: OPTIRAY 320 100ml IV ONE (20:35)
--- NOTE | 2020-07-23 20:42 | CT Scan Report ---
CT SCAN OF THE BRAIN WITHOUT IV CONTRAST CLINICAL HISTORY: Headache. COMPARISON STUDY: CT of the brain dated 07/09/2020. TECHNIQUE: Unenhanced axial CT scan of the brain is performed from the vertex to the skull base. A d ose lowering technique was utilized adhering to the principles of ALARA. CT DOSE: 537.48 mGy.cm FINDINGS: Brain parenchyma: Again seen is postoperative change from right-sided craniotomy. Foci of edema are a gain seen within the right temporal and parietal-occipital regions, similar to the 07/09/2020 examinat ion. There is only minimal residual midline shift measuring up to 1 mm. Trace extra-axial fluid along the right convexity is unchanged 2 slightly decreased, measuring up to 3 mm in thickness. This likel y represents postoperative blood products. There is no parenchymal hematoma or evidence of acute terr itorial ischemia by CT criteria. Ventricles, sulci, cisterns: Normal in configuration. Intracranial vasculature: The visualized intracranial vasculature at the skull base is normal in appe arance. Calvarium: There is postoperative change from right-sided craniotomy. Sinuses and mastoids: The visualized paranasal sinuses are clear. The mastoid air cells are well pneu matized. Orbits: The bony orbits are grossly intact. IMPRESSION: 1. No acute intracranial abnormality is identified. 2. Again seen is postoperative change from right-sided craniotomy. 3. Foci of edema within the right hemisphere are similar to previous and consistent with known sites of metastasis/surgical change. 4. Minimal residual midline shift has modestly decreased from 07/09/2020. 5. Extra-axial fluid deep to the right convexity is likely postsurgical. ACT 112: Negative or not required by law. Electronically signed by: Georges Aguirre M.D. 07/23/2020 8:41 PM
--- NOTE | 2020-07-23 20:58 | CT Scan Report ---
CT SCAN OF THE ABDOMEN AND PELVIS WITH IV CONTRAST CLINICAL HISTORY: Generalized abdominal pain. COMPARISON STUDY: Abdominal CT dated 07/09/2020. TECHNIQUE: Following the IV administration of 90 cc of Optiray 320, CT scan of the abdomen and pelvi s is performed from the lung bases to the proximal femora. Images are reviewed in the axial, sagittal , and coronal planes. IV contrast was administered without complication. A dose lowering technique wa s utilized adhering to the principles of ALARA. CT DOSE: 933.76 mGy.cm FINDINGS: Lung bases: The heart is normal in size and without pericardial effusion. A large right upper lobe pu lmonary mass is seen on the java swing developer tomogram. No airspace consolidation or pleural effusion is seen at the lung bases. Parenchymal scarring/atelectasis is is seen at both anterior lung bases. Bilateral br east implants are noted. There is a small hiatal hernia. Liver: The contrast-enhanced liver is mildly enlarged measuring 18.8 cm in length. The liver demonstr ates diffusely diminished attenuation consistent with hepatic steatosis. 1 focal fatty infiltration i s seen along the falciform ligament. There is no intrahepatic biliary ductal dilatation. The hepatic veins and portal veins are patent. Gallbladder: Surgically absent noting clips in the gallbladder fossa. There is mild circumferential w all thickening and enhancement involving the midportion of the common bile duct seen on image #122. Spleen: Normal in size and attenuation. Pancreas: Unremarkable. Adrenal glands: A 2.8 cm left adrenal lesion and a 1.8 cm right adrenal lesion are consistent with me tastatic disease. Kidneys: The contrast enhanced kidneys are normal in size and without hydronephrosis. The kidneys enh ance symmetrically. Abdominal vasculature: The abdominal aorta is normal in course and caliber noting mild atheroscleroti c calcification. Bowel: There is no bowel obstruction. Mild fecal retention is noted throughout the colon. A small duo denal diverticulum is incidentally noted. The appendix is well-visualized and normal. Peritoneum: There is no intraperitoneal free air or abdominal ascites. Lymphadenopathy: Retroperitoneal lymphadenopathy is somewhat a previous and consistent with metastati c disease. The largest node is in the right caval region on image #223 measuring 1.9 x 1.3 cm. There are also numerous mildly enlarged mesenteric lymph nodes. There is a 2.4 x 1.6 cm portacaval lymph no de. No pelvic sidewall or inguinal adenopathy is seen. Pelvic viscera: An 11 mm enhancing nodule is again seen along the posterior right wall of the bladder on image #416. The uterus is surgically absent. No adnexal lesion is identified. Skeletal structures: No lytic or blastic lesions are seen. IMPRESSION: 1. There are no acute infectious or inflammatory findings in the abdomen or pelvis. 2. A large right upper lobe lung mass is again seen on the java swing developer tomogram. 3. Metastatic abdominal lymphadenopathy and adrenal metastases are similar to the 07/09/2020 examinati on. 4. An 11 mm enhancing nodule is again seen along the posterior wall of the bladder. A primary bladder lesion is favored over metastatic disease. This could be further assessed with cystoscopy if clinica lly warranted. 5. Hepatomegaly and hepatic steatosis. 6. Mild circumferential wall thickening and enhancement is suggested involving the midportion of the common bile duct. There is no intra or extrahepatic biliary ductal dilatation and this is of indeterm inant etiology and significance. 7. Additional findings as above. ACT 112: Negative or not required by law. Electronically signed by: Georges Aguirre M.D. 07/23/2020 8:57 PM
[2020-07-23 21:02] LABS: Appearance Urine Clear (Clear); Bacteria Urine Automated Negative (Negative); Bilirubin Urine Negative (Negative); Blood Urine Negative (Negative); Color Urine Orange; Epithelial Cell Urine Auto >30 /lpf (0-5); Glucose Urine UA Negative (Negative); Ketones Urine 3+ (Negative); Leukocyte Esterase Urine Negative (Negative); Nitrite Urine Negative (Negative); Protein Urine 1+ (Negative); RBC Urine Automated 0-4 /hpf (0-4); Specific Gravity Urine 1.018 (1.000-1.030); Urobilinogen Urine Negative (Negative)
--- NOTE | 2020-07-23 21:11 | History & Physical Report ---
Date of Service July 23, 2020 Assessment & Plan (1) Sepsis: Immunocompromised patient hx NSCLC with brain mets status post brain tumor resection Recent initiation of chemotherapy No obvious source for now history seizures, well-controlled on Keppra history TIA as per records Left breast cancer status post mastectomy, history BRCA gene mutation positivity Hypokalemia secondary to poor p.o. intake Cancer pain on narcotics, controlled past tobacco abuse Medical telemetry Cultures, Daptomycin (for MRSA coverage with patient having a nonfunctioning vascular device), Cefepime Replace potassium, IVF DVT prophylaxis. SCDs RE brain mets Full code Text document was generated using [employer] voice recognition software. It may contain grammatical or spelling errors. Kindly contact undersigned for clarification of any documentation item in question. History of Present Illness Chief Complaint: Weakness, chills Primary Care Provider: Jasiel Fritz, History obtained from patient, family, and records. Medical history significant for NSCLC with brain mets status post brain tumor resection, history seizures, history TIA, breast cancer status post mastectomy, history BRCA gene mutation positivity, past tobacco abuse. Recent confinement last month for intractable cancer related pain and narcotic induced constipation. Patient started outpatient chemotherapy a few days ago Increasing weakness noted over the next few days with poor appetite. No chest pain, no S OB, no unusual cough symptoms. Achy headache symptoms. No abdominal pain, dysuria, diarrhea symptoms. Chills at home. Patient brought to the ER. She received Vancomycin and cefepime for sepsis. 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 Allergies Allergy/AdvReac Type Severity Reaction Status Date / Time Penicillins Allergy Intermediate SWELLS Verified 07/23/20 19:09 Home Medications Medication Instructions Recorded Confirmed Type levetiracetam 1,000 mg PO BID 07/02/20 07/23/20 History dexamethasone 4 mg PO DIRECTED PRN 07/09/20 07/23/20 History folic acid 1 mg PO DAILY 07/09/20 07/23/20 History ondansetron 8 mg PO Q8H PRN 07/09/20 07/23/20 History prochlorperazine maleate 10 mg PO Q6H PRN 07/09/20 07/23/20 History docusate sodium 100 mg PO BID 30 Days #0 cap 07/16/20 07/23/20 Rx lorazepam 0.5 mg PO Q8 PRN #30 tab 07/16/20 07/23/20 Rx melatonin 3 mg PO HS PRN 30 Days #0 tab 07/16/20 07/23/20 Rx morphine 15 mg PO Q12H #60 tab 07/16/20 07/23/20 Rx oxycodone 5 mg PO Q4 PRN #90 tab 07/16/20 07/23/20 Rx polyethylene glycol 3350 [Miralax] 17 g PO QID PRN 07/23/20 07/23/20 History sennosides-docusate sodium 1 tab PO BID PRN 07/23/20 07/23/20 History [Senokot-S] sodium phosphates [Enema 132 ml CA DAILY PRN 07/23/20 07/23/20 History Disposable] Past Med/Surg History Medical History Cancer related pain Surgical History H/O bilateral mastectomy H/O craniotomy H/O: hysterectomy History of cholecystectomy Social History Smoking Status: Former smoker Second Hand Exposure: No; Do You Dip or Chew Tobacco: No; Tobacco Cessation Education Requested by Patient: No Hx Alcohol Use: No Hx Substance Use: No Preferred Language: Greek Communication Ability: Effective House Piping Inspector Required: No Beliefs That Will Affect Care: None marital status: Current Living Situation: Spouse How many Children do You have: 2 Feels Safe at Home: Yes Safety Concerns: Feels Safe At This Time Assistive Devices: None Review of Systems Review of Systems: As per HPI, all 10 systems reviewed, all other ROS negative Physical Exam Physical Exam: GENERAL: Slightly uncomfortable, anxious, no respiratory distress SKIN: Normal color, warm HEENT: Bespectacled, pink palpebral conjunctivae, no ptosis, dry buccal mucosa NECK : Supple, no tenderness CHEST : Decreased breath sounds, no tenderness HEART : Tachycardic, no obvious murmurs ABDOMEN: Some distention, nontender EXTREMITIES : No LE swelling/tenderness, no other conspicuous deformities noted NEUROLOGIC : Coherent, no facial asymmetry, no other gross focality Results & Data Results & Data ([facility]) Vital Signs (Past 12 Hours) Vital Signs Temp Pulse Resp BP Pulse Ox 07/23/20 20:45 95 H 19 114/78 96 07/23/20 20:00 106 H 18 103/73 97 07/23/20 18:09 98 07/23/20 17:16 35.9 C L 129 H 20 111/74 97 Laboratory Results Laboratory Results WBC 8.47 K/uL (4.8-10.8) 07/23/20 17:57 RBC 5.02 M/uL (4.2-5.4) 07/23/20 17:57 Hgb 15.1 g/dL (12.0-16.0) 07/23/20 17:57 Hct 42.5 % (37-47) 07/23/20 17:57 MCV 84.7 fL (80-100) 07/23/20 17:57 MCH 30.1 pg (25-34) 07/23/20 17:57 MCHC 35.5 g/dL (32-36) 07/23/20 17:57 RDW Std Deviation 39.2 fL (36.4-46.3) 07/23/20 17:57 RDW Coeff of Suri 12.9 % (11.5-14.5) 07/23/20 17:57 Plt Count 268 K/uL (130-400) 07/23/20 17:57 MPV 9.6 fL (7.4-10.4) 07/23/20 17:57 Immature Gran % (Auto) 0.4 % 07/23/20 17:57 Neut % (Auto) 85.0 % 07/23/20 17:57 Lymph % (Auto) 11.9 % 07/23/20 17:57 [place] % (Auto) 2.1 % 07/23/20 17:57 Eos % (Auto) 0.4 % 07/23/20 17:57 Baso % (Auto) 0.2 % 03/01/21 17:57 Neut # (Auto) 7.20 K/uL (1.4-6.5) H 07/23/20 17:57 Lymph # (Auto) 1.01 K/uL (1.2-3.4) L 07/23/20 17:57 [place] # (Auto) 0.18 K/uL (0.11-0.59) 07/23/20 17:57 Eos # (Auto) 0.03 K/uL (0-0.5) 07/23/20 17:57 Baso # (Auto) 0.02 K/uL (0-0.2) 07/23/20 17:57 Immature Gran # (Auto) 0.03 K/uL (0.00-0.02) H 07/23/20 17:57 PT 10.8 Seconds (9.0-12.0) 07/23/20 17:57 INR 1.1 (0.9-1.1) 07/23/20 17:57 APTT 25.9 Seconds (21.0-31.0) 07/23/20 17:57 PTT Ratio 1.0 07/23/20 17:57 Sodium 133 mmol/L (136-145) L 07/23/20 17:57 Potassium 3.2 mmol/L (3.5-5.1) L 07/23/20 17:57 Chloride 101 mmol/L (98-107) 07/23/20 17:57 Carbon Dioxide 19 mmol/L (21-32) L 07/23/20 17:57 Anion Gap 13.0 (3-11) H 07/23/20 17:57 BUN 6 mg/dl (7-18) L 07/23/20 17:57 Creatinine 0.50 mg/dl (0.6-1.2) L 07/23/20 17:57 Est Cr Clr Drug Dosing Not Reportable 07/23/20 17:57 Est GFR ( Amer) 136.4 07/23/20 17:57 Est GFR (Non-Af Amer) 117.7 07/23/20 17:57 BUN/Creatinine Ratio 13.0 (10-20) 07/23/20 17:57 Glucose 100 mg/dl (70-99) H 07/23/20 17:57 Lactate 1.3 mmol/L (0.4-2.0) 07/23/20 17:57 Calcium 9.3 mg/dl (8.5-10.1) 07/23/20 17:57 Magnesium 2.1 mg/dl (1.8-2.4) 07/23/20 17:57 Total Bilirubin 1.3 mg/dl (0.2-1) H 07/23/20 17:57 AST 97 U/L (15-37) H 07/23/20 17:57 ALT 103 U/L (12-78) H 07/23/20 17:57 Alkaline Phosphatase 230 U/L (45-117) H 07/23/20 17:57 Troponin I < 0.015 ng/ml (0-0.045) 07/23/20 17:57 Total Protein 7.8 gm/dl (6.4-8.2) 07/23/20 17:57 Albumin 3.2 gm/dl (3.4-5.0) L 07/23/20 17:57 Globulin 4.6 gm/dl (2.5-4.0) H 07/23/20 17:57 Albumin/Globulin Ratio 0.7 (0.9-2) L 07/23/20 17:57 Procalcitonin 4.72 ng/ml (0-0.5) H 07/23/20 17:57 Urine Color [place] 07/23/20 20:30 Urine Appearance Clear (Clear) 07/23/20 20:30 Urine pH 7.0 (4.5-7.5) 07/23/20 20:30 Ur Specific [place] 1.018 (1.000-1.030) 07/23/20 20:30 Urine Protein 1+ (Negative) H 07/23/20 20:30 Urine Glucose (UA) Negative (Negative) 07/23/20 20:30 Urine Ketones 3+ (Negative) H 07/23/20 20:30 Urine Blood Negative (Negative) 07/23/20 20:30 Urine Nitrite Negative (Negative) 07/23/20 20:30 Urine Bilirubin Negative (Negative) 07/23/20 20:30 Urine Urobilinogen Negative (Negative) 07/23/20 20:30 Ur Leukocyte Esterase Negative (Negative) 07/23/20 20:30 Urine WBC (Auto) 1-5 /hpf (0-5) 07/23/20 20:30 Urine RBC (Auto) 0-4 /hpf (0-4) 07/23/20 20:30 U Hyaline Cast (Auto) 1-5 /lpf (0-5) 07/23/20 20:30 U Epithel Cells (Auto) >30 /lpf (0-5) H 07/23/20 20:30 Urine Bacteria (Auto) Negative (Negative) 07/23/20 20:30 COVID-19 Eval Order Covid19 IDNow [facility] 07/23/20 20:10 SARS-CoV-2, RNA, NAAT NEGATIVE (NEGATIVE) 07/23/20 20:10 Diagnostic Findings Chest x-ray : 1. There is no airspace consolidation typical for pneumonia or pleural effusion. 2. A large mass lesion is again seen in the right midlung. 3. Emphysema. CT head: 1. No acute intracranial abnormality is identified. 2. Again seen is postoperative change from right-sided craniotomy. 3. Foci of edema within the right hemisphere are similar to previous and consistent with known sites of metastasis/surgical change. 4. Minimal residual midline shift has modestly decreased from 07/09/2020. 5. Extra-axial fluid deep to the right convexity is likely postsurgical. CT abdomen pelvis: 1. There are no acute infectious or inflammatory findings in the abdomen or pelvis. 2. A large right upper lobe lung mass is again seen on the care transitions manager tomogram. 3. Metastatic abdominal lymphadenopathy and adrenal metastases are similar to the 07/09/2020 examination. 4. An 11 mm enhancing nodule is again seen along the posterior wall of the bladder. A primary bladder lesion is favored over metastatic disease. This could be further assessed with cystoscopy if clinically warranted. 5. Hepatomegaly and hepatic steatosis. 6. Mild circumferential wall thickening and enhancement is suggested involving the midportion of the common bile duct. There is no intra or extrahepatic biliary ductal dilatation and this is of indeterminant etiology and significance. EKG as per my interpretation : Rate 95, NSR, normal axis, short CA, T wave flattening septal leads
[2020-07-23] MEDS ORDERED: POLYETHYLENE (MIRALAX) 17 GM PACK PO PRN (22:30)
[2020-07-23] MEDS ORDERED: CEFEPIME CONSULT ACTIVE PRN (22:30)
[2020-07-23] MEDS ORDERED: PROMETHAZINE HCL 12.5 MG in SODIUM CHLORIDE 0.9% 50 ML IV PRN (22:30)
[2020-07-23] MEDS ORDERED: DOCUSATE SODIUM/SENNA 50/8.6MG TAB PO PRN (22:30)
[2020-07-23] MEDS ORDERED: LORazepam 0.5 MG TAB PO PRN (22:30)
[2020-07-23] MEDS ORDERED: MELATONIN 3 MG TAB PO PRN (22:30)
[2020-07-23] MEDS ORDERED: POTASSIUM CHLORIDE / WTR 10 MEQ/100 ML PLCT IV SCH (23:00)
[2020-07-23] MEDS ORDERED: POTASSIUM CHLORIDE 40 MEQ in SODIUM CHLORIDE 0.9% 1000ML 1,000 ML IV ONE (23:00)
[2020-07-24] MEDS: oxyCODONE HCL IR 5 MG TAB (IMMEDIATE RELEASE) PO PRN ×4 (00:40→21:01)
[2020-07-24] MEDS: CEFEPIME 2,000 MG in SYRINGE 0 ML IV SCH ×3 (04:20→19:38)
[2020-07-24 07:09] LABS: Basophils # (auto) 0.02 K/uL (0-0.2); Basophils % (auto) 0.3 %; Eosinophils # (auto) 0.09 K/uL (0-0.5); Eosinophils % (auto) 1.3 %; Hematocrit (blood only) 38.4 % (37-47); Hemoglobin 13.2 g/dL (12.0-16.0); Immature Granulocytes # (auto) 0.02 K/uL (0.00-0.02); Immature Granulocytes % (auto) 0.3 %; Lymphocytes # (auto) 1.17 K/uL (1.2-3.4); Lymphocytes % (auto) 16.5 %; Mean Corpuscular Hemoglobin 29.5 pg (25-34); Mean Corpuscular Hgb Conc 34.4 g/dL (32-36); Mean Corpuscular Volume 85.7 fL (80-100); Mean Platelet Volume 9.9 fL (7.4-10.4); Monocytes % (auto) 2.8 %; Neutrophils % (auto) 78.8 %; Platelet Count 239 K/uL (130-400); RDW Standard Deviation 40.6 fL (36.4-46.3); Red Blood Count 4.48 M/uL (4.2-5.4)
[2020-07-24 07:34] LABS: Albumin Level 2.7 gm/dl (3.4-5.0); BUN Creatinine Ratio 13.5 (10-20); Calcium 8.5 mg/dl (8.5-10.1); Creatinine Clr Calc Pharmacy 181.6 ml/min; Est GFR (African American) 142.3; Est GFR (Non-African American) 122.8; Potassium 3.4 mmol/L (3.5-5.1)
[2020-07-24 07:37] LABS: Albumin Globulin Ratio 0.7 (0.9-2); Globulin 3.8 gm/dl (2.5-4.0); Total Protein 6.5 gm/dl (6.4-8.2)
[2020-07-24] MEDS: FOLIC ACID 1 MG TAB PO SCH (08:28)
[2020-07-24] MEDS: MoRPHine SULFATE CR 15 MG TABCR PO SCH ×2 (08:28→19:38)
[2020-07-24] MEDS: levETIRAcetam 500 MG TAB PO SCH ×2 (08:29→20:58)
[2020-07-24] MEDS: DOCUSATE SODIUM 100 MG CAP PO SCH ×2 (08:43→19:19)
--- NOTE | 2020-07-24 09:31 | Electrocardiogram Report ---
Test Reason : Blood Pressure : / mmHG Vent. Rate : 093 BPM Atrial Rate : 093 BPM P-R Int : 106 ms QRS Dur : 076 ms QT Int : 324 ms P-R-T Axes : 040 085 067 degrees QTc Int : 402 ms Sinus rhythm with short NH Otherwise normal ECG When compared with ECG of 09-JUL-2020 18:52, No significant change was found Confirmed by Alexy Solano ([id number]) on 07/24/2020 9:30:39 AM Referred By: REFERRED SELF Confirmed By:Alexy Solano
[2020-07-24] MEDS ORDERED: ondansetron HCL 6 MG in DEXTROSE 5% 50 ML IV ONE (18:00)
[2020-07-24] MEDS: D5NSS + 20MEQ KCL 20 MEQ/1,000 ML BAG IV SCH (19:19)
--- NOTE | 2020-07-24 19:19 | Hospitalist Progress Note ---
Date of Service July 24, 2020 Assessment & Plan (1) Weakness: (2) Status post chemotherapy: Rule out underlying infection Underlying lung cancer,NSCLC with brain mets status post brain tumor resection --Status post chemotherapy last Thursday, 3 days prior to admission --Presenting with severe fatigue, poor oral intake, nausea --Blood culture: Pending UA: Not suggestive of UTI C. difficile stool test: Pending --Afebrile, no leukocytosis Still feels weak, with nausea --Continue supportive care, including IV fluids Advance diet as tolerated --Continue empiric daptomycin plus cefepime day #2 --Discussed with Dr. Barillas-patient's oncologist history seizures, well-controlled on Keppra history TIA as per records Left breast cancer status post mastectomy, history BRCA gene mutation positivity Hypokalemia secondary to poor p.o. intake --Continue replacement Cancer pain on narcotics, controlled past tobacco abuse DVT prophylaxis. SCDs RE brain mets Full code Disposition Anticipate discharge to home when medically stable plan of care discussed with patient and her at the bedside in detail and at length all questions answered They are understanding, agreeable, comfortable with the plan of care Admission and Anticipated Discharge Date Admission Date: July 23, 2020 Subjective Follow-up for severe weakness, nausea, poor oral intake after chemotherapy last Thursday Seen sitting up in bed, not in distress but tearful, frustrated because of feeling sick and always being in the hospital States that she still feels weak, having nausea, not able to tolerate solids Denies active headache, dizziness, neck pain, chest pain, shortness of breath, has chronic mild cough, nonproductive, Has chronic mild epigastric discomfort, denies urinary symptoms, positive loose stools this afternoon Explained plan of care to patient and her in detail and at length, reassured, patient was more calm Review of Systems Review of Systems: All systems reviewed & are unremarkable except as noted in Subjective Physical Exam Physical Exam: General- oriented x 3, not in distress, speaks in sentences with no effort or accessory muscle use Appears tired, somewhat weak Head- atraumatic Eyes- PERRL, EOMI, anicteric ENT- oropharynx clear Neck- supple, no JVD, no adenopathy, no thyromegaly; carotids +2/2, no bruits appreciated Lungs- clear to auscultation bilaterally, no rales/wheezes Heart- normal rate, regular rhythm; no murmur, no gallop, no rub appreciated Abdomen- normal bowel sounds, nondistended, soft, nontender, no masses or hepatosplenomegaly Extremities- no pretibial edema, no calf tenderness; peripheral pulses intact Neuro- alert, oriented x 3; CN 2-12 grossly intact; motor 5/5 bilaterally;sensation 100% on all extremities; no other gross focal neurologic deficits Skin- warm & dry Results & Data Results & Data ([facility]) Vital Signs (Past 12 Hours) Vital Signs Temp Pulse Pulse Resp BP Pulse Ox 07/24/20 15:24 37.1 C 95 H 18 98/67 L 95 07/24/20 11:56 36.9 C 97 H 18 91/58 L 96 07/24/20 07:58 37.0 C 97 H 18 107/70 94 07/24/20 07:30 103 H all noted and reviewed including below Laboratory Results Laboratory Results - last 24 hr 07/23/20 07/23/20 07/23/20 17:57 20:10 20:10 WBC RBC Hgb Hct MCV MCH MCHC RDW Std Deviation RDW Coeff of Suri Plt Count MPV Immature Gran % (Auto) Neut % (Auto) Lymph % (Auto) [place] % (Auto) Eos % (Auto) Baso % (Auto) Neut # (Auto) Lymph # (Auto) [place] # (Auto) Eos # (Auto) Baso # (Auto) Immature Gran # (Auto) Sodium Potassium Chloride Carbon Dioxide Anion Gap BUN Creatinine Est Cr Clr Drug Dosing Est GFR ( Amer) Est GFR (Non-Af Amer) BUN/Creatinine Ratio Glucose Calcium Total Bilirubin AST ALT Alkaline Phosphatase Total Protein Albumin Globulin Albumin/Globulin Ratio Procalcitonin 4.72 H Urine Color Urine Appearance Urine pH Ur Specific [place] Urine Protein Urine Glucose (UA) Urine Ketones Urine Blood Urine Nitrite Urine Bilirubin Urine Urobilinogen Ur Leukocyte Esterase Urine WBC (Auto) Urine RBC (Auto) U Hyaline Cast (Auto) U Epithel Cells (Auto) Urine Bacteria (Auto) COVID[facility]19 [facility] SARS-[facility]-2, RNA, NAAT NEGATIVE 07/23/20 07/24/20 07/24/20 20:30 06:34 06:34 WBC 7.10 RBC 4.48 Hgb 13.2 Hct 38.4 MCV 85.7 MCH 29.5 MCHC 34.4 RDW Std Deviation 40.6 RDW Coeff of Suri 13.0 Plt Count 239 MPV 9.9 Immature Gran % (Auto) 0.3 Neut % (Auto) 78.8 Lymph % (Auto) 16.5 [place] % (Auto) 2.8 Eos % (Auto) 1.3 Baso % (Auto) 0.3 Neut # (Auto) 5.60 Lymph # (Auto) 1.17 L [place] # (Auto) 0.20 Eos # (Auto) 0.09 Baso # (Auto) 0.02 Immature Gran # (Auto) 0.02 Sodium 136 Potassium 3.4 L Chloride 106 Carbon Dioxide 20 L Anion Gap 10.0 BUN 6 L Creatinine 0.44 L Est Cr Clr Drug Dosing 181.6 Est GFR ( Amer) 142.3 Est GFR (Non-Af Amer) 122.8 BUN/Creatinine Ratio 13.5 Glucose 86 Calcium 8.5 Total Bilirubin 1.0 AST 67 H ALT 79 H Alkaline Phosphatase 190 H Total Protein 6.5 Albumin 2.7 L Globulin 3.8 Albumin/Globulin Ratio 0.7 L Procalcitonin Urine Color [place] Urine Appearance Clear Urine pH 7.0 Ur Specific [place] 1.018 Urine Protein 1+ H Urine Glucose (UA) Negative Urine Ketones 3+ H Urine Blood Negative Urine Nitrite Negative Urine Bilirubin Negative Urine Urobilinogen Negative Ur Leukocyte Esterase Negative Urine WBC (Auto) 1-5 Urine RBC (Auto) 0-4 U Hyaline Cast (Auto) 1-5 U Epithel Cells (Auto) >30 H Urine Bacteria (Auto) Negative COVID-19 Eval Order SARS-CoV-2, RNA, NAAT
[2020-07-24] MEDS ORDERED: DAPTOmycin 400 MG in SYRINGE 0 ML IV SCH (21:00)
[2020-07-25] MEDS: ondansetron HCL 6 MG in DEXTROSE 5% 50 ML IV PRN ×2 (03:38→20:42)
[2020-07-25] MEDS: CEFEPIME 2,000 MG in SYRINGE 0 ML IV SCH (03:40)
[2020-07-25] MEDS: D5NSS + 20MEQ KCL 20 MEQ/1,000 ML BAG IV SCH ×2 (03:41→14:08)
[2020-07-25] MEDS: oxyCODONE HCL IR 5 MG TAB (IMMEDIATE RELEASE) PO PRN ×4 (03:45→21:46)
[2020-07-25 08:05] LABS: Basophils # (auto) 0.02 K/uL (0-0.2); Basophils % (auto) 0.4 %; Eosinophils # (auto) 0.13 K/uL (0-0.5); Eosinophils % (auto) 2.3 %; Hematocrit (blood only) 34.9 % (37-47); Hemoglobin 11.8 g/dL (12.0-16.0); Lymphocytes % (auto) 21.2 %; Mean Corpuscular Hemoglobin 29.3 pg (25-34); Mean Corpuscular Hgb Conc 33.8 g/dL (32-36); Mean Corpuscular Volume 86.6 fL (80-100); Mean Platelet Volume 9.9 fL (7.4-10.4); Monocytes # (auto) 0.33 K/uL (0.11-0.59); Monocytes % (auto) 5.8 %; Neutrophils # (auto) 3.98 K/uL (1.4-6.5); Neutrophils % (auto) 70.3 %; Platelet Count 233 K/uL (130-400); RDW Coefficient of Variation 13.1 % (11.5-14.5); RDW Standard Deviation 41.9 fL (36.4-46.3); Red Blood Count 4.03 M/uL (4.2-5.4); White Blood Count 5.66 K/uL (4.8-10.8)
[2020-07-25] MEDS: DOCUSATE SODIUM 100 MG CAP PO SCH ×2 (08:32→21:05)
[2020-07-25] MEDS: MoRPHine SULFATE CR 15 MG TABCR PO SCH ×2 (08:32→21:05)
[2020-07-25] MEDS: levETIRAcetam 500 MG TAB PO SCH ×2 (08:32→21:05)
[2020-07-25] MEDS: FOLIC ACID 1 MG TAB PO SCH (08:32)
[2020-07-25 08:39] LABS: Albumin Level 2.5 gm/dl (3.4-5.0); BUN Creatinine Ratio 10.6 (10-20); Calcium 8.8 mg/dl (8.5-10.1); Creatinine Clr Calc Pharmacy 199.8 ml/min; Est GFR (African American) 146.8; Est GFR (Non-African American) 126.7; Potassium 3.4 mmol/L (3.5-5.1)
[2020-07-25 08:42] LABS: Albumin Globulin Ratio 0.7 (0.9-2); Bilirubin,Total 0.7 mg/dl (0.2-1); Globulin 3.6 gm/dl (2.5-4.0); Total Protein 6.1 gm/dl (6.4-8.2)
[2020-07-25] MEDS ORDERED: POTASSIUM CHLORIDE CRTAB 20 MEQ TABCR PO STA (10:15)
--- NOTE | 2020-07-25 14:08 | Hospitalist Progress Note ---
Date of Service July 25, 2020 Assessment & Plan (1) Weakness: Presented with acute weakness without any fever and/or chills Likely secondary to Lexapro chemotherapy Advised to drink more fluid Possible sepsis on presentation has been ruled out No fever and/or chills alone and presentation No increase in white count or any differential count Okay chest x-ray and UA examinations were unremarkable Blood and urine cultures have been negative Imaging headache on the antibiotics with daptomycin and cefepime will be discontinued Recheck CBC and PRP with electrolytes tomorrow (2) Status post chemotherapy: Underlying lung cancer,NSCLC with brain mets status post brain tumor resection --Status post chemotherapy last Thursday, 3 days prior to admission --Presenting with severe fatigue, poor oral intake, nausea --Afebrile, no leukocytosis Still feels weak, with nausea --Continue supportive care, including IV fluids Advance diet as tolerated --Discussed with Dr. Barillas-patient's oncologist History seizures, well-controlled on Keppra History TIA as per records Left breast cancer status post mastectomy, history BRCA gene mutation positivity Hypokalemia secondary to poor p.o. intake --Continue replacement Cancer pain on narcotics, controlled past tobacco abuse DVT prophylaxis. SCDs RE brain mets Full code Disposition Anticipate discharge to home when medically stable PT and OT evaluation prior to discharge Admission and Anticipated Discharge Date Admission Date: July 23, 2020 Subjective 07/25/2020: Patient was seen and examined below medical telemetry unit She remains very generally weak and lethargic Has minimal diarrhea but denies any other symptoms Review of Systems Review of Systems: All systems reviewed and are unremarkable except as noted below Neurologic: + generalized weakness Physical Exam Physical Exam: Lying in bed comfortably Constitutional: well developed, well nourished, + ill appearing and + lethargic Eyes: PERRL, conjunctivae normal, anicteric sclerae ENMT: external ear and nose normal, oropharynx normal Neck: trachea midline, no thyromegaly Respiratory: normal respiratory effort Auscultation: lungs clear to auscultation bilaterally Cardiovascular: Rate/Rhythm: regular rate and regular rhythm Heart Sounds: no murmur Extremities: no edema Gastrointestinal (Abdomen): Inspection/Auscultation: normal bowel sounds; abdomen not distended Percussion/Palpation: abdomen nontender Musculoskeletal: No acute arthritis in any kind Neurologic: Alert, awake and oriented x3. Generally weak but no acute focal neuro deficit Psychiatric: Mood: + depressed mood Lymphatic: no cervical or axillary lymphadenopathy Results & Data Results & Data ([facility]) Vital Signs (Past 12 Hours) Vital Signs Temp Pulse Resp BP Pulse Ox 07/25/20 11:34 36.8 C 86 18 96/64 L 96 07/25/20 07:39 36.6 C 108 H 18 107/71 95 07/25/20 03:28 36.9 C 115 H 20 107/69 95 Laboratory Results Short CBC 07/25/20 Range/Units 07:38 WBC 5.66 (4.8-10.8) K/uL Hgb 11.8 L (12.0-16.0) g/dL Hct 34.9 L (37-47) % Plt Count 233 (130-400) K/uL BMP 07/25/20 07:38 Sodium 135 L Potassium 3.4 L Chloride 106 Carbon Dioxide 19 L BUN 4 L Creatinine 0.40 L Glucose 102 H Calcium 8.8 Liver Function 07/25/20 Range/Units 07:38 Total Bilirubin 0.7 (0.2-1) mg/dl AST 37 (15-37) U/L ALT 54 (12-78) U/L Alkaline Phosphatase 161 H (45-117) U/L Albumin 2.5 L (3.4-5.0) gm/dl Medications Administered Current Inpatient Medications Docusate Sodium (Docusate Sodium 100 Mg Cap) 100 mg PO BID [facility] Stop: 08/23/20 08:59 Last Admin: 07/25/20 08:32 Dose: Not Given Documented by: Folic Acid (Folic Acid 1 Mg Tab) 1 mg PO DAILY KAMILA Stop: 08/23/20 08:59 Last Admin: 07/25/20 08:32 Dose: 1 mg Documented by: Promethazine HCl 12.5 mg/ (Sodium Chloride) 50.5 mls @ 202 mls/hr IV Q6H PRN PRN Reason: Nausea And Vomiting Stop: 08/22/20 22:29 Ondansetron HCl 6 mg/ Dextrose 53 mls @ 200 mls/hr IV Q6H PRN PRN Reason: Nausea And Vomiting Stop: 08/23/20 17:34 Last Infusion: 07/25/20 04:46 Dose: Infused Documented by: Potassium Chloride/Dextrose/Sod Cl (D5nss + 20meq Kcl) 20 meq in 1,000 mls @ 100 mls/hr IV .Q10H KAMILA Stop: 08/23/20 17:59 Last Admin: 07/25/20 14:08 Dose: 100 mls/hr Documented by: Levetiracetam (Levetiracetam 500 Mg Tab) 1,000 mg PO BID KAMILA Stop: 08/23/20 08:59 Last Admin: 07/25/20 08:32 Dose: 1,000 mg Documented by: Lorazepam (Lorazepam 0.5 Mg Tab) 0.5 mg PO Q8 PRN PRN Reason: Anxiety Stop: 08/22/20 22:29 Melatonin (Melatonin 3 Mg Tab) 3 mg PO HS PRN PRN Reason: Insomnia Stop: 08/22/20 22:29 Morphine Sulfate (Morphine Sulfate Cr 15 Mg Tabcr) 15 mg PO Q12H KAMILA Stop: 08/07/20 07:59 Last Admin: 07/25/20 08:32 Dose: 15 mg Documented by: Oxycodone HCl (Oxycodone Hcl Ir 5 Mg Tab (Immediate Release)) 5 mg PO Q4H PRN PRN Reason: pain Stop: 08/06/20 22:29 Last Admin: 07/25/20 09:33 Dose: 5 mg Documented by: Polyethylene Glycol (Polyethylene (Miralax) 17 Gm Pack) 17 gm PO QID PRN PRN Reason: Constipation Stop: 08/22/20 22:29 Senna/Docusate Sodium (Docusate Sodium/Senna 50/8.6mg Tab) 1 tab PO BID PRN PRN Reason: Constipation Stop: 08/22/20 22:29
[2020-07-25] MEDS ORDERED: SODIUM CHLORIDE 0.65% NA SOLN 45 ML (OCEAN) ONE (16:12)
--- NOTE | 2020-07-25 17:41 | Emergency Department Note ---
Impression & Plan Sepsis, Metastatic lung carcinoma, Brain metastases, Bladder mass, Weakness ED Provider Note NAME: YNES MCCARTY AGE: 45 SEX: F : 1975 ARRIVES VIA: Walk-In INFORMANT: Patient, ED PROVIDER(S): Loy Padilla MD CHIEF COMPLAINT: weakness HPI: This is a 45-year-old female who presents to the emergency department complaining of generalized weakness. The patient reports that she started chemotherapy on Thursday. Since that time she has been nauseated and vomiting and not keeping anything down. The patient appears extremely anxious on physical exam. She denies being in any pain and is refusing pain medication. She reports movement makes the weakness worse however rest makes it better. She has not taken anything prior to arrival. ROS: See above HPI for pertinent positives & negatives. A total of 10 systems reviewed and were otherwise negative. PAST MEDICAL HISTORY: See Below PAST SURGICAL HISTORY: See Below FAMILY HISTORY: See Below SOCIAL HISTORY: See Below HOME MEDICATIONS: See Below ALLERGIES: See Below VITALS: See Below PHYSICAL EXAMINATION: VITAL SIGNS - Vital signs and nursing notes were reviewed. GENERAL - 45-year-old female appearing stated age who is in no acute distress. Communicates well with provider and answers questions appropriately. SKIN - Without rashes. HEAD - NC/AT. EYES - PERRL with EOMI bilaterally. Sclera anicteric. Palpebral conjunctiva pink and moist with no injection noted. EARS - No deformities of external structures noted on gross examination bilaterally. NOSE - Midline and without cyanosis. No epistaxis or purulent drainage noted. Septum midline without deviation or septal hematoma noted. MOUTH/OROPHARYNX - Without perioral cyanosis. Buccal mucosa pink and moist and without leukoplakia. Tongue midline with equal elevation of palate bilaterally. No tonsillar hypertrophy, erythema, or exudates noted. dentition noted. NECK - Neck with FROM. Supple to palpation. lymphadenopathy noted. No nuchal rigidity. LUNGS - Chest wall symmetric without accessory muscle use, intercostals retractions, or central cyanosis. Normal vesicular breath sounds CTA B/L. No wheezes, rales, or rhonchi appreciated. CARDIAC - RRR with S1/S2. No murmur, rubs, or gallops appreciated. ABDOMEN - Abdominal contour without pulsations or visible masses. BS normoactive all four quadrants. No tenderness, palpable masses, hepatospleno megaly, or ascites noted. EXTREMITIES - No clubbing or peripheral cyanosis. No pretibial edema present. +3/5 radial, posterior tibial, and dorsalis pedis pulses palpated throughout. +5/5 strength noted in UE/LE bilaterally. NEUROLOGIC - Cranial nerves II through XII grossly intact. Sensory intact to light touch throughout. Patellar reflexes +2/4. PSYCH - A&Ox3 and cooperates fully with examiner. Pt is very pleasant and interacts well with examiner. MEDICAL DECISION MAKING: Triage Nursing notes reviewed. Prior medical records reviewed Vital Signs: reviewed and remarkable for hypothermia and tachycardia Differential diagnosis: Infection, dehydration, metabolic abnormality, hypo/hyperglycemia, electrolyte disturbance, anemia, hypoxia, cardiac sources, intracerebral event, toxicologic, neurologic, as well as other pathologies. ER treatment provided: See below Diagnostics interpreted by me: ECG: EKG at 1804 shows sinus rhythm with short MN no ST elevation QTC is 402 ventricular rate is 93 when compared to 07/09/2020 no significant change was found Cardiac Monitoring: An order was placed for continuous cardiac monitoring. The monitor shows a rate of with rhythm. Laboratory studies: As stated above and show below. Imaging studies: [facility], [id number] CT Scan Report Patient: YNES MCCARTYAdmit Date: 07/23/20#: [id number]: [address]:[id number]: Date: 1975[facility] Zip: [place], [place] [address]Oob: 45Location: EDSex: FRoom/Bed:Att Phy:Diagnosis: WEAKNESSPri Phy: Jasiel Fritz, DOService Date: 07/23/20Fam Phy:Interpreting Phy: Georges Aguirre MDAdmit Phy: Ordering Phy: George Us MD cc: ~ CT SCAN OF THE BRAIN WITHOUT IV CONTRAST CLINICAL HISTORY: Headache. COMPARISON STUDY: CT of the brain dated 07/09/2020. TECHNIQUE: Unenhanced axial CT scan of the brain is performed from the vertex to the skull base. A dose lowering technique was utilized adhering to the principles of ALARA. CT DOSE: 537.48 mGy.cm FINDINGS: Brain parenchyma: Again seen is postoperative change from right-sided craniotomy. Foci of edema are again seen within the right temporal and parietal- occipital regions, similar to the 07/09/2020 examination. There is only minimal residual midline shift measuring up to 1 mm. Trace extra-axial fluid along the right convexity is unchanged 2 slightly decreased, measuring up to 3 mm in thickness. This likely represents postoperative blood products. There is no parenchymal hematoma or evidence of acute territorial ischemia by CT criteria. Ventricles, sulci, cisterns: Normal in configuration. Intracranial vasculature: The visualized intracranial vasculature at the skull base is normal in appearance. Calvarium: There is postoperative change from right-sided craniotomy. Sinuses and mastoids: The visualized paranasal sinuses are clear. The mastoid air cells are well pneumatized. Orbits: The bony orbits are grossly intact. IMPRESSION: 1. No acute intracranial abnormality is identified. 2. Again seen is postoperative change from right-sided craniotomy. 3. Foci of edema within the right hemisphere are similar to previous and consistent with known sites of metastasis/surgical change. 4. Minimal residual midline shift has modestly decreased from 07/09/2020. 5. Extra-axial fluid deep to the right convexity is likely postsurgical. ACT 112: Negative or not required by law. Electronically signed by: Georges Aguirre M.D. 07/23/2020 8:41 PM [facility], [id number] XRay Report Patient: YNES MCCARTYAdmit Date: 07/23/20#: [id number]: [address]Acct ID:[id number]: Date: 1975[facility] Zip: [place] [address]Myi: 45Location: EDSex: FRoom/Bed:Att Phy:Diagnosis: WEAKNESSPri Phy: Jasiel Fritz, DOService Date: 07/23/20Fam Phy:I nterpreting Phy: Georges Aguirre MDAdmit Phy: Ordering Phy: Loy Padilla MD cc: ~ SINGLE VIEW CHEST CLINICAL HISTORY: Sepsis. FINDINGS: An AP, portable, upright chest radiograph is compared to study dated 07/09/2020. A left subclavian central venous infusion port is in place. The cardi omediastinal silhouette is unremarkable. Emphysematous change is noted. A 5.4 cm mass lesion is again seen in the right upper lobe. There is no airspace consolidation typical for pneumonia or large pleural effusion. No pneumothorax is identified. The bony thorax is grossly intact. Postoperative change is seen in the left proximal humerus. IMPRESSION: 1. There is no airspace consolidation typical for pneumonia or pleural effusion. 2. A large mass lesion is again seen in the right midlung. 3. Emphysema. ACT 112: Negative or not required by law. Electronically signed by: Georges Aguirre M.D. 07/23/2020 6:26 PM Dictated: 07/23/201822Transcribed: 07/23/201822 Dictated: 07/23/202034Transcribed: 07/23/202034 Consultation(s): Medicine service ED COURSE: Patient was evaluated IV labs and imaging were initiated. Patient was given 30 mL/kg of fluid and started on Tylenol as well as broad-spectrum antibiotics including cefepime Procedures: none PDMP:reviewed and no issues Critical Care: I have personally spent greater than 30 minutes of critical care time in the direct management of this patient. This includes bedside care, interpretation of diagnostic studies, and testing, discussion with consultants, patient, and family members, and other required patient management activities. This 30 minutes is in excess of all separately billable procedures. Past Med/Surg History Medical History Cancer related pain Surgical History H/O bilateral mastectomy H/O craniotomy H/O: hysterectomy History of cholecystectomy Social History Smoking Status: Former smoker Second Hand Exposure: No; Do You Dip or Chew Tobacco: No; Tobacco Cessation Education Requested by Patient: No Hx Alcohol Use: No Hx Substance Use: No Preferred Language: German Communication Ability: Effective Train Brakeman Required: No Beliefs That Will Affect Care: None marital status: Current Living Situation: Spouse How many Children do You have: 2 Feels Safe at Home: Yes Safety Concerns: Feels Safe At This Time Assistive Devices: None Allergies Allergies Allergy/AdvReac Type Severity Reaction Status Date / Time Penicillins Allergy Intermediate SWELLS Verified 07/23/20 19:09 Home Meds Home Medications Medication Instructions Recorded Confirmed levetiracetam 1,000 mg PO BID 07/02/20 07/23/20 dexamethasone 4 mg PO DIRECTED PRN 07/09/20 07/23/20 folic acid 1 mg PO DAILY 07/09/20 07/23/20 ondansetron 8 mg PO Q8H PRN 07/09/20 07/23/20 prochlorperazine maleate 10 mg PO Q6H PRN 07/09/20 07/23/20 polyethylene glycol 3350 [Miralax] 17 g PO QID PRN 07/23/20 07/23/20 sennosides-docusate sodium 1 tab PO BID PRN 07/23/20 07/23/20 [Senokot-S] sodium phosphates [Enema 132 ml MN DAILY PRN 07/23/20 07/23/20 Disposable] Previous Rx's Medication Instructions Recorded docusate sodium 100 mg PO BID 30 Days #0 cap 07/16/20 lorazepam 0.5 mg PO Q8 PRN #30 tab 07/16/20 melatonin 3 mg PO HS PRN 30 Days #0 tab 07/16/20 morphine 15 mg PO Q12H #60 tab 07/16/20 oxycodone 5 mg PO Q4 PRN #90 tab 07/16/20 Results & Data (ED) Home Medications Current Medication List: was personally reviewed by me Laboratory Data Attestation: I reviewed the patient's lab results. Result diagrams: 07/25/20 07:38 07/25/20 07:38 Lab Results 07/23/20 07/23/20 07/23/20 Range/Units 17:57 17:57 17:57 WBC 8.47 (4.8-10.8) K/uL RBC 5.02 (4.2-5.4) M/uL Hgb 15.1 (12.0-16.0) g/dL Hct 42.5 (37-47) % MCV 84.7 (80-100) fL MCH 30.1 (25-34) pg MCHC 35.5 (32-36) g/dL RDW Std Deviation 39.2 (36.4-46.3) fL RDW Coeff of Suri 12.9 (11.5-14.5) % Plt Count 268 (130-400) K/uL MPV 9.6 (7.4-10.4) fL Immature Gran % (Auto) 0.4 % Neut % (Auto) 85.0 % Lymph % (Auto) 11.9 % Davis % (Auto) 2.1 % Eos % (Auto) 0.4 % Baso % (Auto) 0.2 % Neut # (Auto) 7.20 H (1.4-6.5) K/uL Lymph # (Auto) 1.01 L (1.2-3.4) K/uL Davis # (Auto) 0.18 (0.11-0.59) K/uL Eos # (Auto) 0.03 (0-0.5) K/uL Baso # (Auto) 0.02 (0-0.2) K/uL Immature Gran # (Auto) 0.03 H (0.00-0.02) K/uL PT 10.8 (9.0-12.0) Seconds INR 1.1 (0.9-1.1) APTT 25.9 (21.0-31.0) Seconds PTT Ratio 1.0 Sodium 133 L (136-145) mmol/L Potassium 3.2 L (3.5-5.1) mmol/L Chloride 101 (98-107) mmol/L Carbon Dioxide 19 L (21-32) mmol/L Anion Gap 13.0 H (3-11) BUN 6 L (7-18) mg/dl Creatinine 0.50 L (0.6-1.2) mg/dl Est Cr Clr Drug Dosing Not Reportable Est GFR ( Amer) 136.4 Est GFR (Non-Af Amer) 117.7 BUN/Creatinine Ratio 13.0 (10-20) Glucose 100 H (70-99) mg/dl Lactate (0.4-2.0) mmol/L Calcium 9.3 (8.5-10.1) mg/dl Magnesium 2.1 (1.8-2.4) mg/dl Total Bilirubin 1.3 H (0.2-1) mg/dl AST 97 H (15-37) U/L ALT 103 H (12-78) U/L Alkaline Phosphatase 230 H (45-117) U/L Troponin I < 0.015 (0-0.045) ng/ml Total Protein 7.8 (6.4-8.2) gm/dl Albumin 3.2 L (3.4-5.0) gm/dl Globulin 4.6 H (2.5-4.0) gm/dl Albumin/Globulin Ratio 0.7 L (0.9-2) Procalcitonin (0-0.5) ng/ml Urine Color Urine Appearance (Clear) Urine pH (4.5-7.5) Ur Specific [place] (1.000-1.030) Urine Protein (Negative) Urine Glucose (UA) (Negative) Urine Ketones (Negative) Urine Blood (Negative) Urine Nitrite (Negative) Urine Bilirubin (Negative) Urine Urobilinogen (Negative) Ur Leukocyte Esterase (Negative) Urine WBC (Auto) (0-5) /hpf Urine RBC (Auto) (0-4) /hpf U Hyaline Cast (Auto) (0-5) /lpf U Epithel Cells (Auto) (0-5) /lpf Urine Bacteria (Auto) (Negative) COVID-19 Eval Order SARS-CoV-2, RNA, NAAT (NEGATIVE) 07/23/20 07/23/20 07/23/20 Range/Units 17:57 17:57 20:10 WBC (4.8-10.8) K/uL RBC (4.2-5.4) M/uL Hgb (12.0-16.0) g/dL Hct (37-47) % MCV (80-100) fL MCH (25-34) pg MCHC (32-36) g/dL RDW Std Deviation (36.4-46.3) fL RDW Coeff of Suri (11.5-14.5) % Plt Count (130-400) K/uL MPV (7.4-10.4) fL Immature Gran % (Auto) % Neut % (Auto) % Lymph % (Auto) % Davis % (Auto) % Eos % (Auto) % Baso % (Auto) % Neut # (Auto) (1.4-6.5) K/uL Lymph # (Auto) (1.2-3.4) K/uL Davis # (Auto) (0.11-0.59) K/uL Eos # (Auto) (0-0.5) K/uL Baso # (Auto) (0-0.2) K/uL Immature Gran # (Auto) (0.00-0.02) K/uL PT (9.0-12.0) Seconds INR (0.9-1.1) APTT (21.0-31.0) Seconds PTT Ratio Sodium (136-145) mmol/L Potassium (3.5-5.1) mmol/L Chloride (98-107) mmol/L Carbon Dioxide (21-32) mmol/L Anion Gap (3-11) BUN (7-18) mg/dl Creatinine (0.6-1.2) mg/dl Est Cr Clr Drug Dosing Est GFR ( Amer) Est GFR (Non-Af Amer) BUN/Creatinine Ratio (10-20) Glucose (70-99) mg/dl Lactate 1.3 (0.4-2.0) mmol/L Calcium (8.5-10.1) mg/dl Magnesium (1.8-2.4) mg/dl Total Bilirubin (0.2-1) mg/dl AST (15-37) U/L ALT (12-78) U/L Alkaline Phosphatase (45-117) U/L Troponin I (0-0.045) ng/ml Total Protein (6.4-8.2) gm/dl Albumin (3.4-5.0) gm/dl Globulin (2.5-4.0) gm/dl Albumin/Globulin Ratio (0.9-2) Procalcitonin 4.72 H (0-0.5) ng/ml Urine Color Urine Appearance (Clear) Urine pH (4.5-7.5) Ur Specific [place] (1.000-1.030) Urine Protein (Negative) Urine Glucose (UA) (Negative) Urine Ketones (Negative) Urine Blood (Negative) Urine Nitrite (Negative) Urine Bilirubin (Negative) Urine Urobilinogen (Negative) Ur Leukocyte Esterase (Negative) Urine WBC (Auto) (0-5) /hpf Urine RBC (Auto) (0-4) /hpf U Hyaline Cast (Auto) (0-5) /lpf U Epithel Cells (Auto) (0-5) /lpf Urine Bacteria (Auto) (Negative) COVID-19 Eval [facility] SARS-CoV-2, RNA, NAAT (NEGATIVE) 07/23/20 07/23/20 Range/Units 20:10 20:30 WBC (4.8-10.8) K/uL RBC (4.2-5.4) M/uL Hgb (12.0-16.0) g/dL Hct (37-47) % MCV (80-100) fL MCH (25-34) pg MCHC (32-36) g/dL RDW Std Deviation (36.4-46.3) fL RDW Coeff of Suri (11.5-14.5) % Plt Count (130-400) K/uL MPV (7.4-10.4) fL Immature Gran % (Auto) % Neut % (Auto) % Lymph % (Auto) % Davis % (Auto) % Eos % (Auto) % Baso % (Auto) % Neut # (Auto) (1.4-6.5) K/uL Lymph # (Auto) (1.2-3.4) K/uL Davis # (Auto) (0.11-0.59) K/uL Eos # (Auto) (0-0.5) K/uL Baso # (Auto) (0-0.2) K/uL Immature Gran # (Auto) (0.00-0.02) K/uL PT (9.0-12.0) Seconds INR (0.9-1.1) APTT (21.0-31.0) Seconds PTT Ratio Sodium (136-145) mmol/L Potassium (3.5-5.1) mmol/L Chloride (98-107) mmol/L Carbon Dioxide (21-32) mmol/L Anion Gap (3-11) BUN (7-18) mg/dl Creatinine (0.6-1.2) mg/dl Est Cr Clr Drug Dosing Est GFR ( Amer) Est GFR (Non-Af Amer) BUN/Creatinine Ratio (10-20) Glucose (70-99) mg/dl Lactate (0.4-2.0) mmol/L Calcium (8.5-10.1) mg/dl Magnesium (1.8-2.4) mg/dl Total Bilirubin (0.2-1) mg/dl AST (15-37) U/L ALT (12-78) U/L Alkaline Phosphatase (45-117) U/L Troponin I (0-0.045) ng/ml Total Protein (6.4-8.2) gm/dl Albumin (3.4-5.0) gm/dl Globulin (2.5-4.0) gm/dl Albumin/Globulin Ratio (0.9-2) Procalcitonin (0-0.5) ng/ml Urine Color [place] Urine Appearance Clear (Clear) Urine pH 7.0 (4.5-7.5) Ur Specific [place] 1.018 (1.000-1.030) Urine Protein 1+ H (Negative) Urine Glucose (UA) Negative (Negative) Urine Ketones 3+ H (Negative) Urine Blood Negative (Negative) Urine Nitrite Negative (Negative) Urine Bilirubin Negative (Negative) Urine Urobilinogen Negative (Negative) Ur Leukocyte Esterase Negative (Negative) Urine WBC (Auto) 1-5 (0-5) /hpf Urine RBC (Auto) 0-4 (0-4) /hpf U Hyaline Cast (Auto) 1-5 (0-5) /lpf U Epithel Cells (Auto) >30 H (0-5) /lpf Urine Bacteria (Auto) Negative (Negative) COVID-19 Eval Order SARS-CoV-2, RNA, NAAT NEGATIVE (NEGATIVE) Administered Medications Docusate Sodium (Docusate Sodium 100 Mg Cap) 100 mg PO BID [facility] Stop: 08/23/20 08:59 Last Admin: 07/25/20 08:32 Dose: Not Given Documented by: [id number] Admin: 07/24/20 19:19 Dose: Not Given Documented by: [id number] Admin: 07/24/20 08:43 Dose: Not Given Documented by: [id number] Folic Acid (Folic Acid 1 Mg Tab) 1 mg PO DAILY [facility] Stop: 08/23/20 08:59 Last Admin: 07/25/20 08:32 Dose: 1 mg Documented by: [id number] Admin: 07/24/20 08:28 Dose: 1 mg Documented by: [id number] Ondansetron HCl 6 mg/ Dextrose 53 mls @ 200 mls/hr IV Q6H PRN PRN Reason: Nausea And Vomiting Stop: 08/23/20 17:34 Last Infusion: 07/25/20 04:46 Dose: 0 mls/hr Documented by: [id number] Admin: 07/25/20 03:38 Dose: 200 mls/hr Documented by: [id number] Potassium Chloride/Dextrose/Sod Cl (D5nss + 20meq Kcl) 20 meq in 1,000 mls @ 100 mls/hr IV .Q10H K[facility]ILA Stop: 08/23/20 17:59 Last Admin: 07/25/20 14:08 Dose: 100 mls/hr Documented by: [id number] Infusion: 07/25/20 13:50 Dose: 0 mls/hr Documented by: [id number] Admin: 07/25/20 03:41 Dose: 100 mls/hr Documented by: [id number] Infusion: 07/25/20 03:41 Dose: 100 mls/hr Documented by: [id number] Admin: 07/24/20 19:19 Dose: 100 mls/hr Documented by: [id number] Levetiracetam (Levetiracetam 500 Mg Tab) 1,000 mg PO BID K[facility]ILA Stop: 08/23/20 08:59 Last Admin: 07/25/20 08:32 Dose: 1,000 mg Documented by: [id number] Admin: 07/24/20 20:58 Dose: 1,000 mg Documented by: [id number] Admin: 07/24/20 08:29 Dose: 1,000 mg Documented by: [id number] Morphine Sulfate (Morphine Sulfate Cr 15 Mg Tabcr) 15 mg PO Q12H K[facility]ILA Stop: 08/07/20 07:59 Last Admin: 07/25/20 08:32 Dose: 15 mg Documented by: [id number] Admin: 07/24/20 19:38 Dose: 15 mg Documented by: [id number] Admin: 07/24/20 08:28 Dose: 15 mg Documented by: [id number] Oxycodone HCl (Oxycodone Hcl Ir 5 Mg Tab (Immediate Release)) 5 mg PO Q4H PRN PRN Reason: pain Stop: 08/06/20 22:29 Last Admin: 07/25/20 16:14 Dose: 5 mg Documented by: [id number] Admin: 07/25/20 09:33 Dose: 5 mg Documented by: [id number] Admin: 07/25/20 03:45 Dose: 5 mg Documented by: [id number] Admin: 07/24/20 21:01 Dose: 5 mg Documented by: [id number] Admin: 07/24/20 15:48 Dose: 5 mg Documented by: [id number] Admin: 07/24/20 10:26 Dose: 5 mg Documented by: [id number] Admin: 07/24/20 00:40 Dose: 5 mg Documented by: [id number] Discontinued Medications Sodium Chloride (Nss 1000ml) 1,000 mls @ 999 mls/hr IV .Q1H1M ONE Stop: 07/23/20 18:39 Last Infusion: 07/23/20 19:58 Dose: 0 mls/hr Documented by: [id number] Admin: 07/23/20 18:05 Dose: 999 mls/hr Documented by: [id number] Sodium Chloride (Nss 1000ml) 1,000 mls @ 999 mls/hr IV .Q1H1M ONE Stop: 07/23/20 19:49 Last Infusion: 07/23/20 20:06 Dose: 0 mls/hr Documented by: [id number] Admin: 07/23/20 19:41 Dose: 999 mls/hr Documented by: [id number] Cefepime HCl (Maxipime) 2,000 mg in 20 mls @ 5 mls/min IV NOW STA Stop: 07/23/20 19:08 Last Admin: 07/23/20 20:01 Dose: 5 mls/min Documented by: [id number] Sodium Chloride (Nss 1000ml) 500 mls @ 999 mls/hr IV .Q31M ONE Stop: 07/23/20 19:36 Last Admin: 07/23/20 20:05 Dose: Not Given Documented by: [id number] Lactated Ringer's (Lr) 1,000 mls @ 200 mls/hr IV .Q5H ONE Stop: 07/24/20 00:42 Last Infusion: 07/24/20 01:33 Dose: 0 mls/hr Documented by: [id number] Admin: 07/23/20 20:06 Dose: 200 mls/hr Documented by: [id number] Daptomycin 400 mg/ Syringe 8 mls @ 4 mls/min IV ONE STA; Protocol Stop: 07/23/20 20:11 Last Admin: 07/23/20 20:46 Dose: 4 mls/min Documented by: [id number] Daptomycin 400 mg/ Syringe 8 mls @ 4 mls/min IV Q24H KAMILA; Protocol Stop: 07/26/20 20:59 Last Admin: 07/24/20 20:59 Dose: 4 mls/min Documented by: [id number] Potassium Chloride (K Mauri / Wtr) 10 meq in 100 mls @ 100 mls/hr IV Q1H KAMILA Stop: 07/24/20 02:59 Last Admin: 07/24/20 00:08 Dose: Not Given Documented by: [id number] Potassium Chloride 40 meq/ (Sodium Chloride) 1,020 mls @ 60 mls/hr IV .Q17H ONE Stop: 07/24/20 15:59 Last Infusion: 07/24/20 18:58 Dose: 0 mls/hr Documented by: [id number] Admin: 07/24/20 00:40 Dose: 60 mls/hr Documented by: [id number] Cefepime HCl 2,000 mg/ Syringe 20 mls @ 5 mls/min IV Q8H KAMILA; Protocol Stop: 07/26/20 03:59 Last Admin: 07/25/20 03:40 Dose: 5 mls/min Documented by: [id number] Admin: 07/24/20 19:38 Dose: 5 mls/min Documented by: [id number] Admin: 07/24/20 12:27 Dose: 5 mls/min Documented by: [id number] Admin: 07/24/20 04:20 Dose: 5 mls/min Documented by: [id number] Ondansetron HCl 6 mg/ Dextrose 53 mls @ 200 mls/hr IV ONE ONE Stop: 07/24/20 18:15 Last Infusion: 07/24/20 19:19 Dose: 0 mls/hr Documented by: [id number] Admin: 07/24/20 18:58 Dose: 200 mls/hr Documented by: [id number] Ioversol (Ioversol 100ml) 90 ml IV ONCE ONE Stop: 07/23/20 20:36 Last Admin: 07/23/20 20:36 Dose: 90 ml Documented by: [id number] Levetiracetam (Levetiracetam 500 Mg Tab) 1,000 mg PO NOW STA Stop: 07/23/20 20:08 Last Admin: 07/23/20 20:46 Dose: 1,000 mg Documented by: [id number] Morphine Sulfate (Morphine Sulfate Cr 15 Mg Tabcr) 15 mg PO NOW STA Stop: 07/23/20 19:08 Last Admin: 07/23/20 20:11 Dose: 15 mg Documented by: [id number] Ondansetron HCl (Ondansetron Inj 2 Mg/Ml 2 Ml Vial) 4 mg IV NOW STA Stop: 07/23/20 17:40 Last Admin: 07/23/20 18:05 Dose: 4 mg Documented by: [id number] Oxycodone HCl (Oxycodone Hcl Ir 5 Mg Tab (Immediate Release)) 10 mg PO NOW STA Stop: 07/23/20 19:07 Last Admin: 07/23/20 19:40 Dose: 5 mg Documented by: [id number] Potassium Chloride (Potassium Chloride Crtab 20 Meq Tabcr) 40 meq PO NOW STA Stop: 07/23/20 18:50 Last Admin: 07/23/20 19:52 Dose: Not Given Documented by: [id number] Potassium Chloride (Potassium Chloride Crtab 20 Meq Tabcr) 40 meq PO NOW STA Stop: 07/25/20 10:16 Last Admin: 07/25/20 10:18 Dose: Not Given Documented by: [id number] Sodium Chloride (Sodium Chloride 0.65% Na Soln 45 Ml ([place])) Confirm Administered Dose 225 sprays .ROUTE .STK-MED ONE Stop: 07/25/20 16:13 Last Admin: 07/25/20 16:14 Dose: 225 sprays Documented by: [id number] Discharge Plan Visit Data Chief Complaint: Weakness Stated Complaint: WEAKNESS ED Provider: Loy Padilla Discharge Problem: Sepsis, Metastatic lung carcinoma, Brain metastases, Bladder mass, Weakness Patient Disposition: Admitted As Inpatient Discharge Instructions Interventions: ED Discharge Assessment Last Done: 07/23/20 22:09 Discharge Problem: Sepsis Qualifiers: Sepsis type: sepsis due to unspecified organism Sepsis acute organ dysfunction status: unspecified Qualified Code(s): A41.9 - Sepsis, unspecified organism Metastatic lung carcinoma Qualifiers: Laterality: unspecified laterality Qualified Code(s): C78.00 - Secondary malignant neoplasm of unspecified lung
[2020-07-26] MEDS: D5NSS + 20MEQ KCL 20 MEQ/1,000 ML BAG IV SCH ×2 (00:36→11:46)
[2020-07-26] MEDS: oxyCODONE HCL IR 5 MG TAB (IMMEDIATE RELEASE) PO PRN (03:02)
[2020-07-26 07:22] LABS: Basophils # (auto) 0.01 K/uL (0-0.2); Basophils % (auto) 0.2 %; Eosinophils # (auto) 0.18 K/uL (0-0.5); Eosinophils % (auto) 4.1 %; Hemoglobin 11.4 g/dL (12.0-16.0); Immature Granulocytes # (auto) 0.01 K/uL (0.00-0.02); Immature Granulocytes % (auto) 0.2 %; Lymphocytes # (auto) 1.17 K/uL (1.2-3.4); Lymphocytes % (auto) 26.5 %; Mean Corpuscular Hemoglobin 29.6 pg (25-34); Mean Corpuscular Hgb Conc 34.5 g/dL (32-36); Mean Corpuscular Volume 85.7 fL (80-100); Mean Platelet Volume 9.4 fL (7.4-10.4); Monocytes # (auto) 0.43 K/uL (0.11-0.59); Monocytes % (auto) 9.7 %; Neutrophils # (auto) 2.62 K/uL (1.4-6.5); Neutrophils % (auto) 59.3 %; Platelet Count 206 K/uL (130-400); RDW Standard Deviation 40.7 fL (36.4-46.3); Red Blood Count 3.85 M/uL (4.2-5.4); White Blood Count 4.42 K/uL (4.8-10.8)
[2020-07-26 07:57] LABS: Albumin Level 2.5 gm/dl (3.4-5.0); BUN Creatinine Ratio 2.9 (10-20); Calcium 8.7 mg/dl (8.5-10.1); Creatinine Clr Calc Pharmacy 205.5 ml/min; Est GFR (Non-African American) 127.7; Magnesium 1.9 mg/dl (1.8-2.4); Potassium 3.5 mmol/L (3.5-5.1)
[2020-07-26 08:00] LABS: Albumin Globulin Ratio 0.7 (0.9-2); Bilirubin,Total 0.5 mg/dl (0.2-1); Globulin 3.7 gm/dl (2.5-4.0); Total Protein 6.2 gm/dl (6.4-8.2)
[2020-07-26] MEDS: MoRPHine SULFATE CR 15 MG TABCR PO SCH (09:45)
[2020-07-26] MEDS: DOCUSATE SODIUM 100 MG CAP PO SCH (09:46)
[2020-07-26] MEDS: levETIRAcetam 500 MG TAB PO SCH (09:46)
[2020-07-26] MEDS: FOLIC ACID 1 MG TAB PO SCH (09:46)
--- NOTE | 2020-07-26 13:22 | Hospitalist Progress Note ---
Date of Service July 26, 2020 Assessment & Plan (1) Weakness: Presented with acute weakness without any fever and/or chills Likely secondary to Lexapro chemotherapy Advised to drink more fluid Possible sepsis on presentation has been ruled out No fever and/or chills alone and presentation No increase in white count or any differential count Okay chest x-ray and UA examinations were unremarkable Blood and urine cultures have been negative Imaging headache on the antibiotics with daptomycin and cefepime will be discontinued No signs and/or symptoms of infection White count and kidney functions remained stable She will be discharged home this afternoon (2) Status post chemotherapy: Underlying lung cancer,NSCLC with brain mets status post brain tumor resection --Status post chemotherapy last Thursday, 3 days prior to admission --Presenting with severe fatigue, poor oral intake, nausea --Afebrile, no leukocytosis Still feels weak, with nausea --Continue supportive care, including IV fluids Advance diet as tolerated --Discussed with Dr. Barillas-patient's oncologist --Was advised to keep appointment with the oncologist History seizures, well-controlled on Keppra History TIA as per records Left breast cancer status post mastectomy, history BRCA gene mutation positivity Hypokalemia secondary to poor p.o. intake --Continue replacement Cancer pain on narcotics, controlled past tobacco abuse DVT prophylaxis. SCDs RE brain mets Full code Disposition She will be discharged home this afternoon Admission and Anticipated Discharge Date Admission Date: July 23, 2020 Subjective 07/25/2020: Patient was seen and examined below medical telemetry unit She remains very generally weak and lethargic Has minimal diarrhea but denies any other symptoms 07/26/2020 The patient was seen and examined in medical telemetry unit She complains today of nausea and occasional vomiting and generalized weakness No signs and/or symptoms of infection She has been ambulating without any difficulty Review of Systems Review of Systems: All systems reviewed and are unremarkable except as noted below Neurologic: + generalized weakness Physical Exam Physical Exam: Lying in bed comfortably but very depressed Constitutional: well developed, well nourished and + lethargic; not ill appearing Eyes: PERRL, conjunctivae normal, anicteric sclerae ENMT: external ear and nose normal, oropharynx normal Neck: trachea midline, no thyromegaly Respiratory: normal respiratory effort Auscultation: lungs clear to auscultation bilaterally Cardiovascular: Rate/Rhythm: regular rate and regular rhythm Heart Sounds: no murmur Extremities: no edema Gastrointestinal (Abdomen): Inspection/Auscultation: normal bowel sounds; abdomen not distended Percussion/Palpation: abdomen nontender Psychiatric: Mood: + depressed mood Insight: good insight Lymphatic: no cervical or axillary lymphadenopathy Results & Data Results & Data ([facility]) Vital Signs (Past 12 Hours) Vital Signs Temp Pulse Resp BP Pulse Ox 07/26/20 07:00 36.6 C 92 H 18 95/62 L 96 07/26/20 03:06 37 C 96 H 16 104/73 96 Laboratory Results Short CBC 07/26/20 Range/Units 06:39 WBC 4.42 L (4.8-10.8) K/uL Hgb 11.4 L (12.0-16.0) g/dL Hct 33.0 L (37-47) % Plt Count 206 (130-400) K/uL BMP 07/26/20 06:39 Sodium 138 Potassium 3.5 Chloride 107 Carbon Dioxide 23 BUN 1 L Creatinine 0.39 L Glucose 95 Calcium 8.7 Liver Function 07/26/20 Range/Units 06:39 Total Bilirubin 0.5 (0.2-1) mg/dl AST 29 (15-37) U/L ALT 44 (12-78) U/L Alkaline Phosphatase 154 H (45-117) U/L Albumin 2.5 L (3.4-5.0) gm/dl Medications Administered Current Inpatient Medications Docusate Sodium (Docusate Sodium 100 Mg Cap) 100 mg PO BID [facility] Stop: 08/23/20 08:59 Last Admin: 07/26/20 09:46 Dose: Not Given Documented by: Folic Acid (Folic Acid 1 Mg Tab) 1 mg PO DAILY [facility] Stop: 08/23/20 08:59 Last Admin: 07/26/20 09:46 Dose: 1 mg Documented by: Promethazine HCl 12.5 mg/ (Sodium Chloride) 50.5 mls @ 202 mls/hr IV Q6H PRN PRN Reason: Nausea And Vomiting Stop: 08/22/20 22:29 Ondansetron HCl 6 mg/ Dextrose 53 mls @ 200 mls/hr IV Q6H PRN PRN Reason: Nausea And Vomiting Stop: 08/23/20 17:34 Last Infusion: 07/25/20 21:17 Dose: Infused Documented by: Potassium Chloride/Dextrose/Sod Cl (D5nss + 20meq Kcl) 20 meq in 1,000 mls @ 100 mls/hr IV .Q10H [facility] Stop: 08/23/20 17:59 Last Admin: 07/26/20 11:46 Dose: Not Given Documented by: Levetiracetam (Levetiracetam 500 Mg Tab) 1,000 mg PO BID [facility] Stop: 08/23/20 08:59 Last Admin: 07/26/20 09:46 Dose: 1,000 mg Documented by: Lorazepam (Lorazepam 0.5 Mg Tab) 0.5 mg PO Q8 PRN PRN Reason: Anxiety Stop: 08/22/20 22:29 Melatonin (Melatonin 3 Mg Tab) 3 mg PO HS PRN PRN Reason: Insomnia Stop: 08/22/20 22:29 Morphine Sulfate (Morphine Sulfate Cr 15 Mg Tabcr) 15 mg PO Q12H [facility] Stop: 08/07/20 07:59 Last Admin: 07/26/20 09:45 Dose: 15 mg Documented by: Oxycodone HCl (Oxycodone Hcl Ir 5 Mg Tab (Immediate Release)) 5 mg PO Q4H PRN PRN Reason: pain Stop: 08/06/20 22:29 Last Admin: 07/26/20 03:02 Dose: 5 mg Documented by: Polyethylene Glycol (Polyethylene (Miralax) 17 Gm Pack) 17 gm PO QID PRN PRN Reason: Constipation Stop: 08/22/20 22:29 Senna/Docusate Sodium (Docusate Sodium/Senna 50/8.6mg Tab) 1 tab PO BID PRN PRN Reason: Constipation Stop: 08/22/20 22:29
--- NOTE | 2020-07-27 14:29 | Discharge Summary ---
Date of Service July 27, 2020 Admission HPI Per Admitting Provider History obtained from patient, family, and records. Medical history significant for NSCLC with brain mets status post brain tumor resection, history seizures, history TIA, breast cancer status post mastectomy, history BRCA gene mutation positivity, past tobacco abuse. Recent confinement last month for intractable cancer related pain and narcotic induced constipation. Patient started outpatient chemotherapy a few days ago Increasing weakness noted over the next few days with poor appetite. No chest pain, no S OB, no unusual cough symptoms. Achy headache symptoms. No abdominal pain, dysuria, diarrhea symptoms. Chills at home. Patient brought to the ER. She received Vancomycin and cefepime for sepsis. 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 Admission Exam Per Admitting Provider Physical Exam: GENERAL: Slightly uncomfortable, anxious, no respiratory distress SKIN: Normal color, warm HEENT: Bespectacled, pink palpebral conjunctivae, no ptosis, dry buccal mucosa NECK : Supple, no tenderness CHEST : Decreased breath sounds, no tenderness HEART : Tachycardic, no obvious murmurs ABDOMEN: Some distention, nontender EXTREMITIES : No LE swelling/tenderness, no other conspicuous deformities noted NEUROLOGIC : Coherent, no facial asymmetry, no other gross focality Principal Diagnosis Generalized weakness, non-small cell lung cancer with brain metastasis with ongoing chemo, seizure disorder Discharge Exam Constitutional well developed, well nourished and + lethargic; not ill appearing Eyes PERRL, conjunctivae normal, anicteric sclerae ENMT external ear and nose normal, oropharynx normal Neck trachea midline, no thyromegaly Respiratory normal respiratory effort Auscultation: lungs clear to auscultation bilaterally Cardiovascular Rate/Rhythm: regular rate and regular rhythm Heart Sounds: no murmur Extremities: no edema Gastrointestinal (Abdomen) Inspection/Auscultation: normal bowel sounds; abdomen not distended Percussion/Palpation: abdomen nontender Psychiatric Mood: + depressed mood Insight: good insight Lymphatic no cervical or axillary lymphadenopathy Discharge Data Allergies Allergy/AdvReac Type Severity Reaction Status Date / Time Penicillins Allergy Intermediate SWELLS Verified 07/23/20 19:09 Consultations 07/23/20 19:13 ED Decision to Admit Stat Ordered Studies 07/23/20 20:04 CT abd pelvis IV con only Stat CT head/brain wo con Stat Hospital Course (1) Weakness: Presented with acute weakness without any fever and/or chills Likely secondary to Lexapro chemotherapy Advised to drink more fluid Possible sepsis on presentation has been ruled out No fever and/or chills alone and presentation No increase in white count or any differential count Okay chest x-ray and UA examinations were unremarkable Blood and urine cultures have been negative Imaging headache on the antibiotics with daptomycin and cefepime will be discontinued No signs and/or symptoms of infection White count and kidney functions remained stable She will be discharged home this afternoon (2) Status post chemotherapy: Underlying lung cancer,NSCLC with brain mets status post brain tumor resection --Status post chemotherapy last Thursday, 3 days prior to admission --Presenting with severe fatigue, poor oral intake, nausea --Afebrile, no leukocytosis Still feels weak, with nausea --Continue supportive care, including IV fluids Advance diet as tolerated --Discussed with Dr. Barillas-patient's oncologist --Was advised to keep appointment with the oncologist History seizures, well-controlled on Keppra History TIA as per records Left breast cancer status post mastectomy, history BRCA gene mutation positivity Hypokalemia secondary to poor p.o. intake --Continue replacement Cancer pain on narcotics, controlled past tobacco abuse DVT prophylaxis. SCDs RE brain mets Full code Disposition She will be discharged home this afternoon Total Time Total Time Spent Total Time Spent (In Minutes): 35 minutes Total Time Includes: Examination of the Patient, Discharge Planning, Medication Reconciliation and Communication With Other Providers Discharge Plan Discharge Items Patient Disposition: Home - Self-Care Reason For Visit: SEPSIS, PX REQ FOR PRIVATE ROOM IF AVAILABLE Discharge Diagnosis: Generalized weakness, non-small cell lung cancer with brain metastasis with ongoing chemo, seizure disorder Condition on Discharge: Fair Activity: Resume your previous activity Non-emergency contact: Primary Care Provider Call non-emergency contact if: you have any medication questions and your symptoms worsen Follow-up/Referrals: Jasiel Fritz, [Primary Care Provider] - (Date & Time 07/31/2020 11:00 AM Provider DO [facility] ) Diet: Regular Addtl Attending Provider Instructions: Please take precaution to avoid falls Try to be small meals at one time Please keep your appointment with the oncologist Pending Studies at Discharge: No Stand-Alone Forms: My [facility], Smoking Cessation Medications and DC Order Prescriptions: Continued levetiracetam 500 mg tablet 1,000 mg PO BID RF: 0 folic acid 1 mg Tablet 1 mg PO DAILY RF: 0 ondansetron 8 mg Tablet,Disintegrating 8 mg PO Q8H PRN (Reason: Nausea) RF: 0 prochlorperazine maleate 10 mg Tablet 10 mg PO Q6H PRN (Reason: Nausea) RF: 0 dexamethasone 4 mg Tablet 4 mg PO DIRECTED PRN (Reason: PRIOR TO CHEMO) RF: 0 melatonin 3 mg Tablet 3 mg PO HS PRN30 Days Qty: 0 RF: 0 lorazepam 0.5 mg Tablet 0.5 mg PO Q8 PRN (Reason: Anxiety) Qty: 30 RF: 0 docusate sodium 100 mg Capsule 100 mg PO BID 30 Days Qty: 0 RF: 0 morphine 15 mg Tablet Extended Release 15 mg PO Q12H Qty: 60 RF: 0 oxycodone 5 mg tablet 5 mg PO Q4 PRN (Reason: pain) Qty: 90 RF: 0 polyethylene glycol 3350 [Miralax] 17 gram powder in packet 17 g PO QID PRN (Reason: Constipation) RF: 0 sennosides-docusate sodium [Senokot-S] 8.6-50 mg tablet 1 tab PO BID PRN (Reason: Constipation) RF: 0 Enema Disposable 19-7 gram/118 mL enema 132 ml TX DAILY PRN (Reason: Constipation) RF: 0 Discharge Orders: Discharge Order (Routine); Ordered 07/26/20 Ordered By: Antoinette Cuellar Admission Data Admit Date/Time: 07/23/20 21:15 Attending Provider: Antoinette Cuellar Admit Provider: George Us Primary Care Provider: Jasiel Fritz Other Providers: Dread Mcgill ; George Us Other Interventions: Discharge Summary Assessment (RN) Last Done: 07/26/20 13:58
== END 2020-07-26 15:57 | disposition home or self-care (01) ==
LOC: ED 17:07 → 2N 21:15 → INTOOBSV 21:15 → SUATTDRO 21:15 → 2N 22:09

== ENCOUNTER 2020-07-29 17:32 | Observation (INO) ==
[2020-07-29] MEDS ORDERED: LORazepam 0.5 MG/1 ML VIAL IV STA (18:12)
--- NOTE | 2020-07-29 18:27 | Emergency Department Note ---
History of Present Illness General Chief complaint: Shortness of Breath/Dyspnea Stated complaint: SOB Time Seen by Provider: 07/29/20 17:59 Source: patient and family History of Present Illness Provider complaint: Shortness of breath Onset (ago): hour(s) Location: chest Severity: moderate Pain Consistency: + constant Maximum Pain Intensity: 0 Quality: + other (Tightness in her chest) Relieved By: + none Associated symptoms: + chest pain, + cough (For 2 months), + headaches (Mild chronic headaches but no headache currently) and + shortness of breath; no fever/chills and no nausea/vomiting This is a 45-year-old female with a history of lung cancer with metastases to the brain presenting with shortness of breath starting earlier today. She also has some chest discomfort which she describes as a tightness across her entire chest. No alleviating factors. She states it is worse when she coughs. She has been coughing for about 2 months. She did have a negative Covid test when she was admitted to the hospital recently. She did have similar symptoms while she was in the hospital but she states that they asked her if she wanted to go home and she felt well enough and decided to go home. She has noticed over the past 2 days that she has had some pain to both of her legs over the shins bilaterally. She states that yesterday she noticed a little bit of pain going to the medial side of her calf in the left lower extremity. She has not noticed any swelling. She denies any abdominal pain, vomiting, diarrhea, fever. She does state that she has been urinating less. She does state that she feels lightheaded when she stands up. Home Medications Medication Instructions Recorded Confirmed Type levetiracetam 1,000 mg PO BID 07/02/20 07/29/20 History dexamethasone 4 mg PO DIRECTED PRN 07/09/20 07/29/20 History folic acid 1 mg PO DAILY 07/09/20 07/29/20 History ondansetron 8 mg PO Q8H PRN 07/09/20 07/29/20 History prochlorperazine maleate 10 mg PO Q6H PRN 07/09/20 07/29/20 History lorazepam 0.5 mg PO Q8 PRN #30 tab 07/16/20 07/29/20 Rx morphine 15 mg PO Q12H #60 tab 07/16/20 07/29/20 Rx polyethylene glycol 3350 [Miralax] 17 g PO QID PRN 07/23/20 07/29/20 History sennosides-docusate sodium 1 tab PO BID PRN 07/23/20 07/29/20 History [Senokot-S] docusate sodium 100 mg PO BID PRN 07/29/20 07/29/20 History melatonin 3 mg PO HS PRN 07/29/20 07/29/20 History oxycodone 5 mg PO Q6H PRN 07/29/20 07/29/20 History Allergies Allergy/AdvReac Type Severity Reaction Status Date / Time Penicillins Allergy Intermediate Swelling Verified 07/29/20 18:40 Past Med/Surg History Medical History (Updated 07/29/20 @ 21:41 by Ronnie Peña MD) Brain metastases Cancer related pain Metastatic lung carcinoma Surgical History H/O bilateral mastectomy H/O craniotomy H/O: hysterectomy History of cholecystectomy Social History Smoking Status: Never smoker Second Hand Exposure: No; Hx Alcohol Use: No Hx Substance Use: No Preferred Language: Cameroonian Communication Ability: Effective 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 and A total of 10 systems reviewed and were otherwise negative Physical Exam Vital Signs Vital Signs - 24 hr 07/29/20 17:27 07/29/20 17:34 07/29/20 18:01 Temperature 36.5 C Temperature Source Temporal Artery Scan Pulse Rate 101 H 122 H 103 H Pulse Rate [Left] Pulse Rate from SpO2 Sensor 100 H 100 H Respiratory Rate 18 18 22 Respiratory Effort / Characteristics Non-Labored Spontaneous Respiratory Depth Normal Blood Pressure 99/62 L 104/76 Blood Pressure [Right Arm] Blood Pressure Mean 74 85 Blood Pressure Mean [Right Arm] Blood Pressure Position [Right Arm] Pulse Oximetry 99 98 99 Oxygen Delivery Method Room Air Sepsis Recent Fever Within 48 Hours No Sepsis New/Unexplained Change in Mental Status No Sepsis Action Taken by Nursing No Action Required 07/29/20 18:05 07/29/20 18:10 07/29/20 18:20 Temperature Temperature Source Pulse Rate 109 H 100 H 89 Pulse Rate [Left] Pulse Rate from SpO2 Sensor 100 H 88 Respiratory Rate 22 21 14 Respiratory Effort / Characteristics Respiratory Depth Blood Pressure Blood Pressure [Right Arm] Blood Pressure Mean Blood Pressure Mean [Right Arm] Blood Pressure Position [Right Arm] Pulse Oximetry 98 99 96 Oxygen Delivery Method Room Air Sepsis Recent Fever Within 48 Hours Sepsis New/Unexplained Change in Mental Status Sepsis Action Taken by Nursing 07/29/20 18:30 07/29/20 18:40 07/29/20 18:50 Temperature Temperature Source Pulse Rate 97 H 94 H 96 H Pulse Rate [Left] 90 Pulse Rate from SpO2 Sensor 97 H 95 H 96 H Respiratory Rate 20 20 19 Respiratory Effort / Characteristics Non-Labored Spontaneous Respiratory Depth Normal Blood Pressure 119/72 Blood Pressure [Right Arm] 119/72 Blood Pressure Mean 87 Blood Pressure Mean [Right Arm] 87 Blood Pressure Position [Right Arm] Lying Pulse Oximetry 97 97 98 Oxygen Delivery Method Room Air Sepsis Recent Fever Within 48 Hours Sepsis New/Unexplained Change in Mental Status Sepsis Action Taken by Nursing 07/29/20 18:51 07/29/20 19:00 07/29/20 19:10 Temperature Temperature Source Pulse Rate 97 H 91 H 97 H Pulse Rate [Left] Pulse Rate from SpO2 Sensor 97 H 91 H 96 H Respiratory Rate 22 15 15 Respiratory Effort / Characteristics Respiratory Depth Blood Pressure Blood Pressure [Right Arm] Blood Pressure Mean Blood Pressure Mean [Right Arm] Blood Pressure Position [Right Arm] Pulse Oximetry 99 99 98 Oxygen Delivery Method Sepsis Recent Fever Within 48 Hours Sepsis New/Unexplained Change in Mental Status Sepsis Action Taken by Nursing 07/29/20 19:20 07/29/20 19:30 07/29/20 19:40 Temperature Temperature Source Pulse Rate 90 101 H 96 H Pulse Rate [Left] Pulse Rate from SpO2 Sensor 90 Respiratory Rate 14 19 14 Respiratory Effort / Characteristics Respiratory Depth Blood Pressure Blood Pressure [Right Arm] Blood Pressure Mean Blood Pressure Mean [Right Arm] Blood Pressure Position [Right Arm] Pulse Oximetry 96 Oxygen Delivery Method Sepsis Recent Fever Within 48 Hours Sepsis New/Unexplained Change in Mental Status Sepsis Action Taken by Nursing 07/29/20 20:20 07/29/20 20:21 07/29/20 20:22 Temperature Temperature Source Pulse Rate 103 H 101 H Pulse Rate [Left] 104 H Pulse Rate from SpO2 Sensor 103 H 99 H Respiratory Rate 18 18 19 Respiratory Effort / Characteristics Spontaneous Respiratory Depth Blood Pressure 114/77 Blood Pressure [Right Arm] 114/77 Blood Pressure Mean 89 Blood Pressure Mean [Right Arm] 89 Blood Pressure Position [Right Arm] Lying Pulse Oximetry 97 97 97 Oxygen Delivery Method Room Air Sepsis Recent Fever Within 48 Hours Sepsis New/Unexplained Change in Mental Status Sepsis Action Taken by Nursing 07/29/20 20:30 07/29/20 20:40 07/29/20 20:50 Temperature Temperature Source Pulse Rate 97 H 96 H 101 H Pulse Rate [Left] Pulse Rate from SpO2 Sensor 98 H 96 H 99 H Respiratory Rate 16 21 22 Respiratory Effort / Characteristics Respiratory Depth Blood Pressure Blood Pressure [Right Arm] Blood Pressure Mean Blood Pressure Mean [Right Arm] Blood Pressure Position [Right Arm] Pulse Oximetry 98 98 95 Oxygen Delivery Method Sepsis Recent Fever Within 48 Hours Sepsis New/Unexplained Change in Mental Status Sepsis Action Taken by Nursing 07/29/20 21:00 07/29/20 21:10 07/29/20 21:20 Temperature Temperature Source Pulse Rate 92 H 108 H 102 H Pulse Rate [Left] Pulse Rate from SpO2 Sensor 91 H 106 H 102 H Respiratory Rate 19 20 17 Respiratory Effort / Characteristics Respiratory Depth Blood Pressure Blood Pressure [Right Arm] Blood Pressure Mean Blood Pressure Mean [Right Arm] Blood Pressure Position [Right Arm] Pulse Oximetry 97 98 97 Oxygen Delivery Method Sepsis Recent Fever Within 48 Hours Sepsis New/Unexplained Change in Mental Status Sepsis Action Taken by Nursing 07/29/20 21:34 Temperature Temperature Source Pulse Rate 109 H Pulse Rate [Left] Pulse Rate from SpO2 Sensor 109 H Respiratory Rate 23 Respiratory Effort / Characteristics Respiratory Depth Blood Pressure Blood Pressure [Right Arm] Blood Pressure Mean Blood Pressure Mean [Right Arm] Blood Pressure Position [Right Arm] Pulse Oximetry 98 Oxygen Delivery Method Sepsis Recent Fever Within 48 Hours Sepsis New/Unexplained Change in Mental Status Sepsis Action Taken by Nursing Constitutional: Vital signs reviewed. Eyes: Pupils are equal round reactive to light. Conjunctiva are noninjected. ENT: Pharynx is clear without erythema or exudate. Mucous membranes are moist. Neck supple without meningeal signs. Respiratory: Clear to auscultation bilaterally. Breath sounds are equal bilaterally. No wheezing. Cardiovascular: Regular rate and rhythm. No rubs or gallops. GI: Soft, nondistended and nontender. Bowel sounds are present. Musculoskeletal: No peripheral edema. No lower extremity tenderness. Integumentary: No cyanosis. or jaundice. Neurological: The patient is awake and alert. No focal deficits. Psychiatric: Very anxious. Sometimes tearful. Course Administered Medications Sodium Chloride (Nss 1000ml) 1,000 mls @ 75 mls/hr IV .[id number] KAMILA Stop: 08/28/20 22:27 Last Admin: 07/29/20 22:53 Dose: 75 mls/hr Documented by: [id number] Oxycodone HCl (Oxycodone Hcl Ir 5 Mg Tab (Immediate Release)) 5 mg PO Q6H PRN PRN Reason: Pain, Severe Stop: 08/12/20 22:47 Last Admin: 07/29/20 23:04 Dose: 5 mg Documented by: [id number] Discontinued Medications Lorazepam (Ativan) 0.5 mg in 1 mls @ 1 mls/min IV NOW STA Stop: 07/29/20 18:13 Last Admin: 07/29/20 18:46 Dose: 1 mls/min Documented by: [id number] Ioversol (Optiray 320 125ml) 89 ml IV ONCE ONE Stop: 07/29/20 19:26 Last Admin: 07/29/20 19:28 Dose: 89 ml Documented by: [id number] Levetiracetam (Levetiracetam 500 Mg Tab) 1,000 mg PO ONE ONE Stop: 07/29/20 20:57 Last Admin: 07/29/20 21:10 Dose: 1,000 mg Documented by: [id number] Morphine Sulfate (Morphine Sulfate Ir 15 Mg Tab (Immediate Release)) 15 mg PO ONE ONE Stop: 07/29/20 20:58 Last Admin: 07/29/20 21:10 Dose: 15 mg Documented by: [id number] Potassium Chloride (Potassium Chloride 10 Meq Tabcr) 40 meq PO NOW STA Stop: 07/29/20 18:57 Last Admin: 07/29/20 19:16 Dose: Not Given Documented by: [id number] Medical Decision Making Differential Diagnosis Pulmonary embolus, DVT, anxiety, panic attack, SD, pneumonia Medical Records Attestation: I reviewed the patient's medical records. I did perform a limited focused review of portions of the patient's old chart on the electronic medical record. The patient was just discharged from the [facility] on July 27. She was admitted for possible sepsis which was ruled out. She had generalized weakness. Home Medications Current Medication List: was personally reviewed by me Laboratory Data Attestation: I reviewed the patient's lab results. Result diagrams: 07/29/20 18:21 07/29/20 18:21 Lab Results 07/29/20 07/29/20 07/29/20 Range/Units 18:21 18:21 18:21 WBC 4.97 (4.8-10.8) K/uL RBC 4.43 (4.2-5.4) M/uL Hgb 13.1 (12.0-16.0) g/dL Hct 37.4 (37-47) % MCV 84.4 (80-100) fL MCH 29.6 (25-34) pg MCHC 35.0 (32-36) g/dL RDW Std Deviation 38.9 (36.4-46.3) fL RDW Coeff of Suri 12.7 (11.5-14.5) % Plt Count 218 (130-400) K/uL MPV 8.9 (7.4-10.4) fL Immature Gran % (Auto) 0.2 % Neut % (Auto) 56.3 % Lymph % (Auto) 25.2 % Clay % (Auto) 15.7 % Eos % (Auto) 2.4 % Baso % (Auto) 0.2 % Neut # (Auto) 2.80 (1.4-6.5) K/uL Lymph # (Auto) 1.25 (1.2-3.4) K/uL Clay # (Auto) 0.78 H (0.11-0.59) K/uL Eos # (Auto) 0.12 (0-0.5) K/uL Baso # (Auto) 0.01 (0-0.2) K/uL Immature Gran # (Auto) 0.01 (0.00-0.02) K/uL PT 10.9 (9.0-12.0) Seconds INR 1.1 (0.9-1.1) APTT 25.7 (21.0-31.0) Seconds PTT Ratio 1.0 D-Dimer 1170 H* (0-500) ug/L FEU Sodium 137 (136-145) mmol/L Potassium 3.1 L (3.5-5.1) mmol/L Chloride 101 (98-107) mmol/L Carbon Dioxide 25 (21-32) mmol/L Anion Gap 12.0 H (3-11) BUN 4 L (7-18) mg/dl Creatinine 0.46 L (0.6-1.2) mg/dl Est Cr Clr Drug Dosing 173.3 ml/min Est GFR ( Amer) 140.2 Est GFR (Non-Af Amer) 121.0 BUN/Creatinine Ratio 8.6 L (10-20) Glucose 95 (70-99) mg/dl Calcium 9.6 (8.5-10.1) mg/dl Total Bilirubin 0.8 (0.2-1) mg/dl AST 37 (15-37) U/L ALT 47 (12-78) U/L Alkaline Phosphatase 174 H (45-117) U/L Troponin I (0-0.045) ng/ml Total Protein 7.3 (6.4-8.2) gm/dl Albumin 3.1 L (3.4-5.0) gm/dl Globulin 4.2 H (2.5-4.0) gm/dl Albumin/Globulin Ratio 0.7 L (0.9-2) Urine Color Urine Appearance (Clear) Urine pH (4.5-7.5) Ur Specific [place] (1.000-1.030) Urine Protein (Negative) Urine Glucose (UA) (Negative) Urine Ketones (Negative) Urine Blood (Negative) Urine Nitrite (Negative) Urine Bilirubin (Negative) Urine Urobilinogen (Negative) Ur Leukocyte Esterase (Negative) COVID-19 Eval Order SARS-CoV-2 (PCR) (Negative) Influenza Type A (PCR) (Neg) Influenza Type B (PCR) (Neg) RSV (RT-PCR) (Neg) 07/29/20 07/29/20 07/29/20 Range/Units 18:21 19:14 19:14 WBC (4.8-10.8) K/uL RBC (4.2-5.4) M/uL Hgb (12.0-16.0) g/dL Hct (37-47) % MCV (80-100) fL MCH (25-34) pg MCHC (32-36) g/dL RDW Std Deviation (36.4-46.3) fL RDW Coeff of Suri (11.5-14.5) % Plt Count (130-400) K/uL MPV (7.4-10.4) fL Immature Gran % (Auto) % Neut % (Auto) % Lymph % (Auto) % Clay % (Auto) % Eos % (Auto) % Baso % (Auto) % Neut # (Auto) (1.4-6.5) K/uL Lymph # (Auto) (1.2-3.4) K/uL Clay # (Auto) (0.11-0.59) K/uL Eos # (Auto) (0-0.5) K/uL Baso # (Auto) (0-0.2) K/uL Immature Gran # (Auto) (0.00-0.02) K/uL PT (9.0-12.0) Seconds INR (0.9-1.1) APTT (21.0-31.0) Seconds PTT Ratio D-Dimer (0-500) ug/L FEU Sodium (136-145) mmol/L Potassium (3.5-5.1) mmol/L Chloride (98-107) mmol/L Carbon Dioxide (21-32) mmol/L Anion Gap (3-11) BUN (7-18) mg/dl Creatinine (0.6-1.2) mg/dl Est Cr Clr Drug Dosing ml/min Est GFR ( Amer) Est GFR (Non-Af Amer) BUN/Creatinine Ratio (10-20) Glucose (70-99) mg/dl Calcium (8.5-10.1) mg/dl Total Bilirubin (0.2-1) mg/dl AST (15-37) U/L ALT (12-78) U/L Alkaline Phosphatase (45-117) U/L Troponin I < 0.015 (0-0.045) ng/ml Total Protein (6.4-8.2) gm/dl Albumin (3.4-5.0) gm/dl Globulin (2.5-4.0) gm/dl Albumin/Globulin Ratio (0.9-2) Urine Color Urine Appearance (Clear) Urine pH (4.5-7.5) Ur Specific [place] (1.000-1.030) Urine Protein (Negative) Urine Glucose (UA) (Negative) Urine Ketones (Negative) Urine Blood (Negative) Urine Nitrite (Negative) Urine Bilirubin (Negative) Urine Urobilinogen (Negative) Ur Leukocyte Esterase (Negative) COVID-19 Eval Order CovFluRsv at [facility] SARS-CoV-2 (PCR) NEGATIVE (Negative) Influenza Type A (PCR) Negative (Neg) Influenza Type B (PCR) Negative (Neg) RSV (RT-PCR) Negative (Neg) 07/29/20 Range/Units 21:15 WBC (4.8-10.8) K/uL RBC (4.2-5.4) M/uL Hgb (12.0-16.0) g/dL Hct (37-47) % MCV (80-100) fL MCH (25-34) pg MCHC (32-36) g/dL RDW Std Deviation (36.4-46.3) fL RDW Coeff of Suri (11.5-14.5) % Plt Count (130-400) K/uL MPV (7.4-10.4) fL Immature Gran % (Auto) % Neut % (Auto) % Lymph % (Auto) % Clay % (Auto) % Eos % (Auto) % Baso % (Auto) % Neut # (Auto) (1.4-6.5) K/uL Lymph # (Auto) (1.2-3.4) K/uL Clay # (Auto) (0.11-0.59) K/uL Eos # (Auto) (0-0.5) K/uL Baso # (Auto) (0-0.2) K/uL Immature Gran # (Auto) (0.00-0.02) K/uL PT (9.0-12.0) Seconds INR (0.9-1.1) APTT (21.0-31.0) Seconds PTT Ratio D-Dimer (0-500) ug/L FEU Sodium (136-145) mmol/L Potassium (3.5-5.1) mmol/L Chloride (98-107) mmol/L Carbon Dioxide (21-32) mmol/L Anion Gap (3-11) BUN (7-18) mg/dl Creatinine (0.6-1.2) mg/dl Est Cr Clr Drug Dosing ml/min Est GFR ( Amer) Est GFR (Non-Af Amer) BUN/Creatinine Ratio (10-20) Glucose (70-99) mg/dl Calcium (8.5-10.1) mg/dl Total Bilirubin (0.2-1) mg/dl AST (15-37) U/L ALT (12-78) U/L Alkaline Phosphatase (45-117) U/L Troponin I (0-0.045) ng/ml Total Protein (6.4-8.2) gm/dl Albumin (3.4-5.0) gm/dl Globulin (2.5-4.0) gm/dl Albumin/Globulin Ratio (0.9-2) Urine Color Yellow Urine Appearance Clear (Clear) Urine pH 6.5 (4.5-7.5) Ur Specific [place] > 1.045 H (1.000-1.030) Urine Protein Negative (Negative) Urine Glucose (UA) Negative (Negative) Urine Ketones 1+ H (Negative) Urine Blood Negative (Negative) Urine Nitrite Negative (Negative) Urine Bilirubin Negative (Negative) Urine Urobilinogen Negative (Negative) Ur Leukocyte Esterase Negative (Negative) COVID-19 Eval Order SARS-CoV-2 (PCR) (Negative) Influenza Type A (PCR) (Neg) Influenza Type B (PCR) (Neg) RSV (RT-PCR) (Neg) Imaging Data Radiologist's Impression: CHEST CTA for PULMONARY ARTERIES CT DOSE: 258.56 mGy.cm HISTORY: Shortness of breath. TECHNIQUE: Multiaxial CT images of the chest were performed following the intravenous administration of contrast to evaluate the pulmonary arteries. Maximal intensity projection images were also obtained. A dose lowering technique was utilized adhering to the principles of ALARA. COMPARISON STUDY: Chest CTA 07/09/2020. FINDINGS: Normal caliber thoracic aorta with no evidence for dissection. Trace pericardial effusion, unchanged. No pleural effusions. The heart remains normal in size. No filling defects within the pulmonary arteries to suggest pulmonary embolus. Mild narrowing of the bilateral distal main pulmonary arteries and bilateral lobar arteries due to the extensive mediastinal and bilateral hilar lymphadenopathy. The lymphadenopathy is similar to the prior study. There is mild mass effect within the distal trachea near the lizeth from the mediastinal lymphadenopathy. This is also unchanged. Left axillary lymphadenopathy is again noted. Prior bilateral breast implants are again noted. Left subclavian Port-A-Cath terminates in the SVC. The patient's known adrenal gland metastases are only partially imaged on this study. Normal caliber esophagus. The lymphadenopathy encases the bilateral mainstem bronchi resulting in slight narrowing of the bronchi. This is also unchanged. No suspicious lytic or blastic osseous lesions. Postoperative changes again noted within the left humerus. Moderate narrowing at the proximal right middle lobe bronchus due to the lymphadenopathy. This has slightly progressed. Emphysema. No pneumothorax. No new focal lung consolidations to suggest pneumonia. Stable linear density within the lateral segment of the right middle lobe consistent with atelectasis. Similar-appearing 5.7 cm right upper lobe mass. This crosses the right major fissure and enters the right middle lobe. IMPRESSION: 1. No evidence for pulmonary embolus. 2. Redemonstration of the 5.8 cm right upper lobe mass. 3. Emphysema. 4. Mediastinal and bilateral lymphadenopathy persists. This results in mild mass effect along the central pulmonary arteries and central bronchi. There is moderate focal narrowing within the proximal right middle lobe bronchus which has progressed in the interval. 5. Trace pericardial effusion, unchanged. 6. Persistent left axillary lymphadenopathy. ACT 112: Negative or not required by law. Electronically signed by: Obed Rashid M.D. 07/29/2020 8:00 PM Dictated: 07/29/201950 Transcribed: 07/29/201950 XR chest 1V portable HISTORY: Dyspnea COMPARISON: Chest 07/23/2020. FINDINGS: There is again noted a 5.2 cm right upper lobe mass. No pneumothorax. No pleural effusions. The heart is normal in size. Left subclavian Port-A-Cath terminates in the SVC. Postoperative changes again noted within the left humer us. Mild emphysema. IMPRESSION: No change in the 5 cm right upper lobe mass and mild emphysema. ACT 112: Negative or not required by law. Electronically signed by: Obed Rashid M.D. 07/29/2020 7:44 PM Dictated: 07/29/201941 Transcribed: 07/29/201941 Preliminary Findings Only See Final Report For Complete Findings US VENOUS BILATERAL LOWER EXTREMITIES: Negative bilateral lower extremity venous duplex ultrasound. There is no evidence of DVT. Radiologist: Mehul Lepe MD Study ready at 20:32 and initial results transmitted at 20:36 ECG Data Attestation: I personally reviewed and interpreted this ECG as follows: Indication: + chest pain and + SOB/dyspnea Rate (beats per minute): 96 Rhythm: + normal sinus ECG Intervals/blocks: + Short HI ECG ST segments: no ST elevation ECG Findings: no PVCs Comparison ECG Date: from (July 23, 2020) Change: no significant change MDM Narrative I did evaluate the patient as noted above. The patient is presenting with shortness of breath and chest discomfort with leg pain bilaterally over the shins. She does have a history of lung cancer with mets to the brain. She does state that she has had some emotional lability since the brain tumors were diagnosed. She is extremely anxious here. She does state that she does have Ativan for anxiety but has never taken other than when she had radiation therapy. IV access was established. I did treat her with Ativan IV. I did place an order for continuous cardiac monitoring. The monitor showed normal sinus rhythm at a rate of 98 bpm. I did order and personally review the patient's 12-lead EKG as described above. She has no acute ischemic changes on twelve-lead EKG. I did order and personally reviewed the images of the patient's chest x-ray as described above. I did order a urine analysis. I did order and review the patient's blood work as noted in the electronic medical record. She does not have an elevation of her white blood cell count. She is not anemic. Platelets are within normal limits. Electrolytes demonstrate a hypokalemia with potassium of 3.1. Troponin is negative. D-dimer is elevated at 1170. I did order a CT angiogram of the chest. I did review the images myself as well as the radiology report as described above.There is no evidence of pulmonary embolism. There is mild mass effect along the central pulmonary arteries and central bronchi. There is moderate focal narrowing within the proximal right middle lobe bronchus which has progressed in the interval. I did order Dopplers of the lower extremities which showed no evidence of DVT. I did discuss the test results with patient. She will be hospitalized for further care and evaluation. She was given her dose of Keppra as well as morphine 15 mg p.o., which are her usual evening meds. I did discuss the case with the spitalist and catalytic case operator. Impression & Plan Chest pain, Metastatic lung carcinoma, Acute hypokalemia, Bilateral leg pain Discharge Plan Visit Data Chief Complaint: Shortness of Breath/Dyspnea Stated Complaint: SOB ED Provider: Ronnie Peña Discharge Problem: Chest pain, Metastatic lung carcinoma, Acute hypokalemia, Bilateral leg pain Patient Disposition: Admitted As Inpatient Discharge Instructions Interventions: ED Discharge Assessment Last Done: 07/29/20 22:06 Discharge Problem: Chest pain Qualifiers: Chest pain type: other chest pain Qualified Code(s): R07.89 - Other chest pain Metastatic lung carcinoma Qualifiers: Laterality: right Qualified Code(s): C78.01 - Secondary malignant neoplasm of right lung
[2020-07-29 18:36] LABS: Basophils # (auto) 0.01 K/uL (0-0.2); Basophils % (auto) 0.2 %; Eosinophils # (auto) 0.12 K/uL (0-0.5); Eosinophils % (auto) 2.4 %; Hematocrit (blood only) 37.4 % (37-47); Hemoglobin 13.1 g/dL (12.0-16.0); Immature Granulocytes # (auto) 0.01 K/uL (0.00-0.02); Immature Granulocytes % (auto) 0.2 %; Lymphocytes # (auto) 1.25 K/uL (1.2-3.4); Lymphocytes % (auto) 25.2 %; Mean Corpuscular Hemoglobin 29.6 pg (25-34); Mean Corpuscular Volume 84.4 fL (80-100); Mean Platelet Volume 8.9 fL (7.4-10.4); Monocytes # (auto) 0.78 K/uL (0.11-0.59); Monocytes % (auto) 15.7 %; Neutrophils % (auto) 56.3 %; Platelet Count 218 K/uL (130-400); RDW Coefficient of Variation 12.7 % (11.5-14.5); RDW Standard Deviation 38.9 fL (36.4-46.3); Red Blood Count 4.43 M/uL (4.2-5.4); White Blood Count 4.97 K/uL (4.8-10.8)
[2020-07-29 18:49] LABS: INR 1.1 (0.9-1.1); Partial Thromboplastin Time 25.7 Seconds (21.0-31.0); Prothrombin Time 10.9 Seconds (9.0-12.0)
[2020-07-29 18:52] LABS: D Dimer 1170 ug/L FEU (0-500)
[2020-07-29 18:53] LABS: Albumin Level 3.1 gm/dl (3.4-5.0); BUN Creatinine Ratio 8.6 (10-20); Calcium 9.6 mg/dl (8.5-10.1); Creatinine Clr Calc Pharmacy 173.3 ml/min; Est GFR (African American) 140.2; Potassium 3.1 mmol/L (3.5-5.1)
[2020-07-29 18:56] LABS: Albumin Globulin Ratio 0.7 (0.9-2); Bilirubin,Total 0.8 mg/dl (0.2-1); Globulin 4.2 gm/dl (2.5-4.0); Total Protein 7.3 gm/dl (6.4-8.2)
[2020-07-29] MEDS ORDERED: POTASSIUM CHLORIDE 10 MEQ TABCR PO STA (18:56)
[2020-07-29] MEDS ORDERED: OPTIRAY 320 125ml IV ONE (19:25)
--- NOTE | 2020-07-29 19:45 | XRay Report ---
XR chest 1V portable HISTORY: Dyspnea COMPARISON: Chest 07/23/2020. FINDINGS: There is again noted a 5.2 cm right upper lobe mass. No pneumothorax. No pleural effusions. The heart is normal in size. Left subclavian Port-A-Cath terminates in the SVC. Postoperative change s again noted within the left humerus. Mild emphysema. IMPRESSION: No change in the 5 cm right upper lobe mass and mild emphysema. ACT 112: Negative or not required by law. Electronically signed by: Obed Rashid M.D. 07/29/2020 7:44 PM
--- NOTE | 2020-07-29 20:01 | CT Scan Report ---
CHEST CTA for PULMONARY ARTERIES CT DOSE: 258.56 mGy.cm HISTORY: Shortness of breath. TECHNIQUE: Multiaxial CT images of the chest were performed following the intravenous administration of contrast to evaluate the pulmonary arteries. Maximal intensity projection images were also obtaine d. A dose lowering technique was utilized adhering to the principles of ALARA. COMPARISON STUDY: Chest CTA 07/09/2020. FINDINGS: Normal caliber thoracic aorta with no evidence for dissection. Trace pericardial effusion, unchanged. No pleural effusions. The heart remains normal in size. No filling defects within the pulm onary arteries to suggest pulmonary embolus. Mild narrowing of the bilateral distal main pulmonary ar teries and bilateral lobar arteries due to the extensive mediastinal and bilateral hilar lymphadenopa thy. The lymphadenopathy is similar to the prior study. There is mild mass effect within the distal t rachea near the lizeth from the mediastinal lymphadenopathy. This is also unchanged. Left axillary ly mphadenopathy is again noted. Prior bilateral breast implants are again noted. Left subclavian Port-A -Cath terminates in the SVC. The patient's known adrenal gland metastases are only partially imaged o n this study. Normal caliber esophagus. The lymphadenopathy encases the bilateral mainstem bronchi re sulting in slight narrowing of the bronchi. This is also unchanged. No suspicious lytic or blastic os seous lesions. Postoperative changes again noted within the left humerus. Moderate narrowing at the p roximal right middle lobe bronchus due to the lymphadenopathy. This has slightly progressed. Emphysem a. No pneumothorax. No new focal lung consolidations to suggest pneumonia. Stable linear density with in the lateral segment of the right middle lobe consistent with atelectasis. Similar-appearing 5.7 cm right upper lobe mass. This crosses the right major fissure and enters the right middle lobe. IMPRESSION: 1. No evidence for pulmonary embolus. 2. Redemonstration of the 5.8 cm right upper lobe mass. 3. Emphysema. 4. Mediastinal and bilateral lymphadenopathy persists. This results in mild mass effect along the mo tral pulmonary arteries and central bronchi. There is moderate focal narrowing within the proximal ri ght middle lobe bronchus which has progressed in the interval. 5. Trace pericardial effusion, unchanged. 6. Persistent left axillary lymphadenopathy. ACT 112: Negative or not required by law. Electronically signed by: Obed Rashid M.D. 07/29/2020 8:00 PM
[2020-07-29 20:07] LABS: Influenza A virus by PCR Negative (Neg); Influenza B virus by PCR Negative (Neg); RSV by PCR Negative (Neg); SARS CoV2 RNA(COVID-19) InHosp NEGATIVE (Negative)
[2020-07-29] MEDS ORDERED: levETIRAcetam 500 MG TAB PO ONE (20:56)
[2020-07-29] MEDS ORDERED: MoRPHine SULFATE IR 15 MG TAB (IMMEDIATE RELEASE) PO ONE (20:57)
[2020-07-29 21:41] LABS: Appearance Urine Clear (Clear); Bilirubin Urine Negative (Negative); Blood Urine Negative (Negative); Color Urine Yellow; Glucose Urine UA Negative (Negative); Ketones Urine 1+ (Negative); Leukocyte Esterase Urine Negative (Negative); Nitrite Urine Negative (Negative); Protein Urine Negative (Negative); Specific Gravity Urine > 1.045 (1.000-1.030); Urobilinogen Urine Negative (Negative); pH Urine 6.5 (4.5-7.5)
[2020-07-29] MEDS ORDERED: MELATONIN 3 MG TAB PO PRN (22:28)
[2020-07-29] MEDS ORDERED: NITROGLYCERIN SL 0.4 MG/TAB TAB SL PRN (22:28)
[2020-07-29] MEDS ORDERED: ONDANSETRON INJ 2 MG/ML 2 ML VIAL IV PRN (22:28)
[2020-07-29] MEDS ORDERED: POLYETHYLENE (MIRALAX) 17 GM PACK PO PRN ×2 (22:28)
[2020-07-29] MEDS ORDERED: DOCUSATE SODIUM 100 MG CAP PO PRN (22:28)
[2020-07-29] MEDS ORDERED: LORazepam 0.5 MG TAB PO PRN (22:28)
[2020-07-29] MEDS ORDERED: ACETAMINOPHEN 325 MG TAB PO PRN (22:28)
[2020-07-29] MEDS ORDERED: PROCHLORPERAZINE MALEATE 10 MG TAB PO PRN (22:28)
[2020-07-29] MEDS ORDERED: oxyCODONE HCL IR 5 MG TAB (IMMEDIATE RELEASE) PO PRN (22:48)
[2020-07-29] MEDS: SODIUM CHLORIDE 0.9% 1000ML 1,000 ML IV SCH (22:53)
[2020-07-29] MEDS ORDERED: POTASSIUM CHLORIDE 20 MEQ/15 ML UDC PO STA (23:37)
[2020-07-30] MEDS: POTASSIUM CHLORIDE / WTR 10 MEQ/100 ML PLCT IV SCH ×4 (00:30→05:53)
--- NOTE | 2020-07-30 00:30 | History and Physical Report ---
DATE OF ADMISSION: 07/29/2020 CHIEF COMPLAINT: Shortness of breath, chest pain. 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 Recently was in the hospital for weakness. Sepsis ruled out and she was discharged couple of days ago, comes back again with shortness of breath and chest pain. The patient says she has a cough for several months now, whenever she coughs she develops chest pain and it stays for couple of minutes and subsides, and she is also getting more short of breath and she was feeling dizzy today and also pain in the legs, which prompted her to come to the ER. In the ER, CT of the chest was done, no PE was shown, but redemonstration of 5.8 cm right upper lung mass. There is a moderate focal narrowing within the proximal right middle lobe bronchus, which has progressed in the interval. Her lower extremity Doppler was done which was negative for any DVT. The patient also is very anxious, tearful with her condition. She thinks her brain is getting foggy. She was clenching the teeth when she came in. Currently resting comfortably and hemodynamically stable. She is okay to be seen by psychiatry in the a.m. Denies any nausea. Appetite is not that great. She is not eating and drinking much. She is not micturating much and she is constipated,having bowel movement once every 2-3 days. Denies any fever. She had some headache earlier, but that is okay now. No blurred visions currently, no ear ache currently, no runny nose currently, no sore throat. ALLERGIES: PENICILLINS. PAST MEDICAL HISTORY: As mentioned above. PAST SURGICAL HISTORY: Periprosthetic capsulectomy of the breast in 2010, laparoscopic cholecystectomy, left partial removal of ovarian cyst, tonsillectomy and adenoidectomy, total hysterectomy, removal of supratentorial brain tumor in May 2020, bilateral simple mastectomy. MEDICATIONS: The patient is on dexamethasone 4mg as directed, Colace 100 mg p.o. b.i.d. p.r.n., folic acid 1 mg p.o. daily, Keppra 1000 mg p.o. b.i.d., Ativan 0.5 mg p.o. 8 hours p.r.n., melatonin 3 mg p.o. at bedtime p.r.n., morphine 15 mg p.o. q. 12 hours, Zofran 8 mg p.o. q. 8 hours p.r.n., oxycodone 5 mg p.o. q. 6 hours p.r.n., MiraLax 17 grams p.o. q.i.d. p.r.n., prochlorperazine 10 mg p.o. q. 6 hours p.r.n., Senokot S one tablet p.o. b.i.d. p.r.n. FAMILY HISTORY: Significant for sister has breast cancer, aunt has breast cancer, paternal grandmother had breast cancer, uncle has leukemia, uncle has diabetes. SOCIAL HISTORY: . Former smoker, smoked 1 pack a day for 23 years. Alcohol rarely. No drug use. REVIEW OF SYSTEMS: As per HPI. Rest of the review of systems negative. PHYSICAL EXAMINATION: GENERAL: The patient is of moderate build, not in acute distress. VITAL SIGNS: Temperature 36.5, pulse 107, respiratory rate 22, blood pressure 112/80, oxygen 97% on room air. HEENT: No pallor, no icterus. Pupils equal, round, and reactive to light. NECK: No JVD, no neck masses, no carotid bruits. CARDIOVASCULAR: S1, S2 heard. Regular rate and rhythm. No murmur, no gallop. RESPIRATORY SYSTEM: Normal AP diameter. No accessory muscle use. No wheezing, no crackles. ABDOMEN: Soft. Mild abdominal discomfort. Mild guarding, no rigidity. No distention. CENTRAL NERVOUS SYSTEM: Cranial nerves II-XII grossly intact, nonfocal. EXTREMITIES: No edema, no erythema. LABORATORY DATA: WBC 4.9, hemoglobin 13.1, hematocrit 37.4, platelets 218. PT 10.9, INR 1.1, APTT 25.7. D-dimer 1170. Sodium 137, potassium 3.1, chloride 101, bicarbonate 25, BUN 4, creatinine 0.4, serum glucose 95, calcium 9.6, total bilirubin 0.8, AST 37, ALT 47, alkaline phosphatase 174. Troponin I less than 0.015. Urinalysis, +1 ketones. SARS-CoV-2 PCR negative. Influenza A and B PCR negative, RSV PCR negative. Venous Doppler preliminary study, no DVT. IMAGING DATA: CT of the chest, no PE. Redemonstration of 5.8 cm right upper lobe mass, emphysema, mediastinal and bilateral lymphadenopathy persist. . There is moderate focal narrowing within the proximal right middle lobe bronchus, which has progressed in the interval. Trace pericardial effusion, unchanged. left axillary lymphadenopathy. Chest x-ray, no change in the right upper lobe mass and mild emphysema. ASSESSMENT AND PLAN: This is a 45-year-old female who presents with shortness of breath and chest pain with coughing. 1. Shortness of breath and chest pain with coughing: She gets chest pain only when coughing and it subsides after some time and she is getting more short of breath today and also feeling dizzy. Workup in the ER is negative, though the CAT scan is showing some progression of narrowing of the proximal right middle lobe bronchus. Currently saturating fine on room air. We will monitor in the [facility]. The patient is also getting chemo, last chemo was one and a half weeks ago, next is in coming one and a half week. Follow up with hematology/oncology. 2. Anxiety and depression: The patient is tearful and she is okay to seeing psychiatry. Will consult Psychiatry . 3. Cancer pain: Continue her home pain medication. 4. Constipation: Most likely narcotic induced. We will make Senokot S a scheduled dose and continue MiraLax p.r.n. 5. History of complex partial seizure: Continue on Keppra. 6. History of transient ischemic attack: As per records. 7. History of breast cancer status post mastectomy. 8. Hypokalemia: Replaced. We will follow the repeat labs in the a.m. 9. History of tobacco abuse. 10. Deep venous thromboembolic prophylaxis: Sequential compression devices for now. 11. Disposition: Observe in [facility]. Full code. Expect to discharge home and follow with family doctor. ASMITA
[2020-07-30] MEDS: oxyCODONE HCL IR 5 MG TAB (IMMEDIATE RELEASE) PO PRN ×4 (04:19→21:51)
--- NOTE | 2020-07-30 06:34 | Ultrasound Report ---
BILATERAL LOWER EXTREMITY VENOUS DOPPLER HISTORY: Acute pain and swelling of the lower legs pain eval for dvt COMPARISON STUDY: None. FINDINGS: There is normal compressibility, flow, and augmentation within the bilateral lower extremit y deep venous systems. IMPRESSION: No DVT within the right or left lower extremity. ACT 112: Negative or not required by law. Electronically signed by: Ashwin Borja M.D. 07/30/2020 6:33 AM
[2020-07-30] MEDS: FOLIC ACID 1 MG TAB PO SCH (08:15)
[2020-07-30] MEDS: levETIRAcetam 500 MG TAB PO SCH ×2 (08:15→21:23)
[2020-07-30] MEDS: MoRPHine SULFATE CR 15 MG TABCR PO SCH ×2 (08:15→21:05)
[2020-07-30] MEDS: DOCUSATE SODIUM/SENNA 50/8.6MG TAB PO SCH ×3 (08:15→21:05)
[2020-07-30] MEDS ORDERED: ENOXAPARIN INJ 40 MG/0.4 ML SYR SQ SCH (09:00)
[2020-07-30] MEDS: SODIUM CHLORIDE 0.9% 1000ML 1,000 ML IV SCH (11:23)
--- NOTE | 2020-07-30 12:07 | Communication Note ---
Date of Service: July 30, 2020 liaison attempted to see patient, patient very focussed on roommate and did not want to speak with service at this time. liaison notified attending that patient not able to participate in the consult at this time. Will reattempt when patient more comfortable.
--- NOTE | 2020-07-30 12:30 | Electrocardiogram Report ---
Test Reason : Blood Pressure : / mmHG Vent. Rate : 096 BPM Atrial Rate : 097 BPM P-R Int : 110 ms QRS Dur : 076 ms QT Int : 336 ms P-R-T Axes : -02 085 061 degrees QTc Int : 424 ms Sinus rhythm with short ND Otherwise normal ECG When compared with ECG of 23-JUL-2020 18:04, No significant change was found Confirmed by Charles Zimmerman ([id number]) on 07/30/2020 12:29:59 PM Referred By: REFERRED SELF Confirmed By:Charles Zimmerman
--- NOTE | 2020-07-30 12:56 | Electrocardiogram Report ---
Test Reason : Blood Pressure : / mmHG Vent. Rate : 091 BPM Atrial Rate : 091 BPM P-R Int : 110 ms QRS Dur : 072 ms QT Int : 346 ms P-R-T Axes : 047 080 072 degrees QTc Int : 425 ms Sinus rhythm with short NH Otherwise normal ECG When compared with ECG of 29-JUL-2020 17:59, (unconfirmed) No significant change was found Confirmed by Charles Zimmerman ([id number]) on 07/30/2020 12:55:57 PM Referred By: REFERRED SELF Confirmed By:Charles Zimmerman
--- NOTE | 2020-07-30 13:26 | Hospitalist Progress Note ---
Date of Service July 30, 2020 Assessment & Plan (1) Chest pain: Chest pain mostly with inspiration and coughing Doubt any cardiac pain Serial EKG and cardiac enzymes are unremarkable She will be moved to medical floor (2) Metastatic lung carcinoma: Recently diagnosed adenocarcinoma of the right lung with brain metastasis Status post chemotherapy in July 20 We will need to have sooner on patient appointment with her oncologist (3) Brain metastases: (4) Weakness: (5) Depression: Noted to be very depressed Has been crying most of the time Was on Celexa before Psychiatrist consulted DVT prophylaxis SCDs for now Admission and Anticipated Discharge Date Admission Date: July 29, 2020 Subjective 07/30/2020 Seen and examined in medical telemetry unit She has history of recent diagnosis of 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 and with ongoing chemotherapy Admitted with increasing shortness of breath and chest pain Denies any significant symptoms this morning and is very depressed Review of Systems Review of Systems: All systems reviewed and are unremarkable except as noted below Respiratory: + cough, + pain with cough and + wheezing; no dyspnea Cardiovascular: + chest pain; no palpitations Psychiatric: + depression and + anxiety Physical Exam Physical Exam: Lying in bed comfortably Constitutional: well developed, well nourished, + ill appearing and + obese Eyes: PERRL, conjunctivae normal, anicteric sclerae ENMT: external ear and nose normal, oropharynx normal Neck: trachea midline, no thyromegaly Respiratory: no respiratory distress Auscultation: + crackles (Right lung) Cardiovascular: Rate/Rhythm: regular rate and regular rhythm Heart Sounds: no murmur Extremities: no edema Gastrointestinal (Abdomen): Inspection/Auscultation: normal bowel sounds; abdomen not distended Percussion/Palpation: abdomen soft; abdomen nontender Musculoskeletal: No acute arthritis in any joint Neurologic: Alert, awake and oriented x3 Psychiatric: Affect: + depressed affect and + anxious affect Mood: + depressed mood and + anxious mood Lymphatic: no cervical or axillary lymphadenopathy Results & Data Results & Data ([facility]) Vital Signs (Past 12 Hours) Vital Signs Temp Pulse Pulse Resp BP Pulse Ox 07/30/20 08:43 86 07/30/20 07:21 36.9 C 107 H 18 95/65 L 95 07/30/20 04:50 36.9 C 91 H 16 106/73 97 Laboratory Results Short CBC 07/29/20 Range/Units 18:21 WBC 4.97 (4.8-10.8) K/uL Hgb 13.1 (12.0-16.0) g/dL Hct 37.4 (37-47) % Plt Count 218 (130-400) K/uL BMP 07/29/20 18:21 Sodium 137 Potassium 3.1 L Chloride 101 Carbon Dioxide 25 BUN 4 L Creatinine 0.46 L Glucose 95 Calcium 9.6 Cardiac Enzymes 07/29/20 07/30/20 Range/Units 18:21 05:28 Troponin I < 0.015 < 0.015 (0-0.045) ng/ml Liver Function 07/29/20 Range/Units 18:21 Total Bilirubin 0.8 (0.2-1) mg/dl AST 37 (15-37) U/L ALT 47 (12-78) U/L Alkaline Phosphatase 174 H (45-117) U/L Albumin 3.1 L (3.4-5.0) gm/dl Urine 07/29/20 Range/Units 21:15 Urine Color Yellow Urine Appearance Clear (Clear) Urine pH 6.5 (4.5-7.5) Ur Specific [place] > 1.045 H (1.000-1.030) Urine Protein Negative (Negative) Urine Glucose (UA) Negative (Negative) Medications Administered Current Inpatient Medications Acetaminophen (Acetaminophen 325 Mg Tab) 650 mg PO Q4H PRN PRN Reason: Pain or Fever Stop: 08/28/20 22:27 Docusate Sodium (Docusate Sodium 100 Mg Cap) 100 mg PO BID PRN PRN Reason: Constipation Stop: 08/28/20 22:27 Folic Acid (Folic Acid 1 Mg Tab) 1 mg PO DAILY KAMILA Stop: 08/29/20 08:59 Last Admin: 07/30/20 08:15 Dose: 1 mg Documented by: Sodium Chloride (Nss 1000ml) 1,000 mls @ 75 mls/hr IV .[id number] KAMILA Stop: 08/28/20 22:27 Last Admin: 07/30/20 11:23 Dose: 75 mls/hr Documented by: Levetiracetam (Levetiracetam 500 Mg Tab) 1,000 mg PO BID KAMILA Stop: 08/29/20 08:59 Last Admin: 07/30/20 08:15 Dose: 1,000 mg Documented by: Lorazepam (Lorazepam 0.5 Mg Tab) 0.5 mg PO Q8 PRN PRN Reason: Anxiety Stop: 08/28/20 22:27 Melatonin (Melatonin 3 Mg Tab) 3 mg PO HS PRN PRN Reason: Sleep Stop: 08/28/20 22:27 Morphine Sulfate (Morphine Sulfate Cr 15 Mg Tabcr) 15 mg PO Q12H KAMILA Stop: 08/13/20 08:59 Last Admin: 07/30/20 08:15 Dose: 15 mg Documented by: Nitroglycerin (Nitroglycerin Sl 0.4 Mg/Tab Tab) 0.4 mg SL UD PRN PRN Reason: Chest Pain Stop: 08/28/20 22:27 Ondansetron HCl (Ondansetron Inj 2 Mg/Ml 2 Ml Vial) 4 mg IV Q6H PRN PRN Reason: Nausea Stop: 08/28/20 22:27 Oxycodone HCl (Oxycodone Hcl Ir 5 Mg Tab (Immediate Release)) 5 mg PO Q4H PRN PRN Reason: Pain, Severe Stop: 08/12/20 22:47 Last Admin: 07/30/20 13:22 Dose: 5 mg Documented by: Polyethylene Glycol (Polyethylene (Miralax) 17 Gm Pack) 17 gm PO QID PRN PRN Reason: Constipation Stop: 08/28/20 22:27 Prochlorperazine (Prochlorperazine Maleate 10 Mg Tab) 10 mg PO Q6H PRN PRN Reason: Nausea Stop: 08/28/20 22:27 Senna/Docusate Sodium (Docusate Sodium/Senna 50/8.6mg Tab) 1 tab PO BID KAMILA Stop: 08/29/20 08:59 Last Admin: 07/30/20 08:17 Dose: Not Given Documented by: (1) Chest pain Chest pain type: other chest pain Qualified Code(s): R07.89 - Other chest pain (2) Metastatic lung carcinoma Laterality: right Qualified Code(s): C78.01 - Secondary malignant neoplasm of right lung
[2020-07-31] MEDS: oxyCODONE HCL IR 5 MG TAB (IMMEDIATE RELEASE) PO PRN ×4 (04:23→22:20)
[2020-07-31] MEDS: levETIRAcetam 500 MG TAB PO SCH ×2 (08:28→20:22)
[2020-07-31] MEDS: MoRPHine SULFATE CR 15 MG TABCR PO SCH ×2 (08:28→20:22)
[2020-07-31] MEDS: DOCUSATE SODIUM/SENNA 50/8.6MG TAB PO SCH ×2 (08:28→20:23)
[2020-07-31] MEDS: FOLIC ACID 1 MG TAB PO SCH (08:47)
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
--- NOTE | 2020-07-31 11:41 | Electrocardiogram Report ---
Test Reason : Blood Pressure : / mmHG Vent. Rate : 093 BPM Atrial Rate : 093 BPM P-R Int : 114 ms QRS Dur : 072 ms QT Int : 356 ms P-R-T Axes : 042 089 073 degrees QTc Int : 442 ms Normal sinus rhythm Normal ECG When compared with ECG of 30-JUL-2020 06:51, No significant change was found Confirmed by Charles Zimmerman ([id number]) on 07/31/2020 11:41:28 AM Referred By: REFERRED SELF Confirmed By:Charles Zimmerman
--- NOTE | 2020-07-31 14:55 | Hospitalist Progress Note ---
Date of Service July 31, 2020 Assessment & Plan (1) Chest pain: Chest pain mostly with inspiration and coughing Doubt any cardiac pain Serial EKG and cardiac enzymes are unremarkable She will be moved to medical floor No more chest pain. She has been ruled out for any ACS (2) Metastatic lung carcinoma: Recently diagnosed adenocarcinoma of the right lung with brain metastasis Status post chemotherapy in July 20 We will need to have sooner on patient appointment with her oncologist Denies any pain and/or shortness of breath (3) Brain metastases: (4) Weakness: (5) Depression: Noted to be very depressed Has been crying most of the time Was on Celexa before Psychiatrist consulted-awaiting input and recommendation Likely to be discharged following psychiatric evaluation DVT prophylaxis SCDs for now Admission and Anticipated Discharge Date Admission Date: July 29, 2020 Subjective 07/30/2020 Seen and examined in medical telemetry unit She has history of recent diagnosis of 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 and with ongoing chemotherapy Admitted with increasing shortness of breath and chest pain Denies any significant symptoms this morning and is very depressed 07/31/2020 The patient was seen and examined in medical floor She is very anxious and Crying most of the time She has been waiting to see the psychiatrist Likely to go home this afternoon following psychiatric evaluation and recommendation Review of Systems Review of Systems: All systems reviewed and are unremarkable except as noted below Respiratory: + cough, + pain with cough and + wheezing; no dyspnea Cardiovascular: + chest pain; no palpitations Psychiatric: + depression and + anxiety Physical Exam Physical Exam: Lying in bed comfortably Constitutional: well developed, well nourished, + ill appearing and + obese Eyes: PERRL, conjunctivae normal, anicteric sclerae ENMT: external ear and nose normal, oropharynx normal Neck: trachea midline, no thyromegaly Respiratory: no respiratory distress Auscultation: + crackles (Right lung) Cardiovascular: Rate/Rhythm: regular rate and regular rhythm Heart Sounds: no murmur Extremities: no edema Gastrointestinal (Abdomen): Inspection/Auscultation: normal bowel sounds; abdomen not distended Percussion/Palpation: abdomen soft; abdomen nontender Musculoskeletal: No acute arthritis in any joint Neurologic: Alert, awake and oriented x3. No focal sensory and or motor deficit appreciated Psychiatric: Affect: + depressed affect and + anxious affect Mood: + depressed mood and + anxious mood Lymphatic: no cervical or axillary lymphadenopathy Results & Data Results & Data ([facility]) Vital Signs (Past 12 Hours) Vital Signs Temp Pulse Resp BP Pulse Ox 07/31/20 07:23 37.0 C 93 H 16 99/62 L 95 Medications Administered Current Inpatient Medications Acetaminophen (Acetaminophen 325 Mg Tab) 650 mg PO Q4H PRN PRN Reason: Pain or Fever Stop: 08/28/20 22:27 Docusate Sodium (Docusate Sodium 100 Mg Cap) 100 mg PO BID PRN PRN Reason: Constipation Stop: 08/28/20 22:27 Folic Acid (Folic Acid 1 Mg Tab) 1 mg PO DAILY [facility] Stop: 08/29/20 08:59 Last Admin: 07/31/20 08:47 Dose: 1 mg Documented by: Levetiracetam (Levetiracetam 500 Mg Tab) 1,000 mg PO BID [facility] Stop: 08/29/20 08:59 Last Admin: 07/31/20 08:28 Dose: 1,000 mg Documented by: Lorazepam (Lorazepam 0.5 Mg Tab) 0.5 mg PO Q8 PRN PRN Reason: Anxiety Stop: 08/28/20 22:27 Melatonin (Melatonin 3 Mg Tab) 3 mg PO HS PRN PRN Reason: Sleep Stop: 08/28/20 22:27 Morphine Sulfate (Morphine Sulfate Cr 15 Mg Tabcr) 15 mg PO Q12H [facility] Stop: 08/13/20 08:59 Last Admin: 07/31/20 08:28 Dose: 15 mg Documented by: Nitroglycerin (Nitroglycerin Sl 0.4 Mg/Tab Tab) 0.4 mg SL UD PRN PRN Reason: Chest Pain Stop: 08/28/20 22:27 Ondansetron HCl (Ondansetron Inj 2 Mg/Ml 2 Ml Vial) 4 mg IV Q6H PRN PRN Reason: Nausea Stop: 08/28/20 22:27 Oxycodone HCl (Oxycodone Hcl Ir 5 Mg Tab (Immediate Release)) 5 mg PO Q4H PRN PRN Reason: Pain, Severe Stop: 08/12/20 22:47 Last Admin: 07/31/20 14:07 Dose: 5 mg Documented by: Polyethylene Glycol (Polyethylene (Miralax) 17 Gm Pack) 17 gm PO QID PRN PRN Reason: Constipation Stop: 08/28/20 22:27 Prochlorperazine (Prochlorperazine Maleate 10 Mg Tab) 10 mg PO Q6H PRN PRN Reason: Nausea Stop: 08/28/20 22:27 Senna/Docusate Sodium (Docusate Sodium/Senna 50/8.6mg Tab) 1 tab PO BID [facility] Stop: 08/29/20 08:59 Last Admin: 07/31/20 08:28 Dose: Not Given Documented by: (1) Chest pain Chest pain type: other chest pain Qualified Code(s): R07.89 - Other chest pain (2) Metastatic lung carcinoma Laterality: right Qualified Code(s): C78.01 - Secondary malignant neoplasm of right lung
[2020-08-01] MEDS: levETIRAcetam 500 MG TAB PO SCH (08:06)
[2020-08-01] MEDS: MoRPHine SULFATE CR 15 MG TABCR PO SCH (08:07)
[2020-08-01] MEDS: FOLIC ACID 1 MG TAB PO SCH (08:07)
[2020-08-01] MEDS: DOCUSATE SODIUM/SENNA 50/8.6MG TAB PO SCH (08:07)
[2020-08-01] MEDS: oxyCODONE HCL IR 5 MG TAB (IMMEDIATE RELEASE) PO PRN (09:29)
--- NOTE | 2020-08-01 12:12 | Discharge Summary ---
Date of Service August 01, 2020 Admission HPI Per Admitting Provider A 45-year-old female with past medical history significant for breast cancer status post bilateral mastectomy 13 years ago, history of recent diagnosis of 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, history of right frontal craniotomy for brain tumor resection, partial complex seizures, history of TIA, history of BRCA gene mutation positivity, past tobacco abuse. Recently was in the hospital for weakness. Sepsis ruled out and she was discharged couple of days ago, comes back again with shortness of breath and chest pain. The patient says she has a cough for several months now, whenever she coughs she develops chest pain and it stays for couple of minutes and subsides, and she is also getting more short of breath and she was feeling dizzy today and also pain in the legs, which prompted her to come to the ER. In the ER, CT of the chest was done, no PE was shown, but redemonstration of 5.8 cm right upper lung mass. There is a moderate focal narrowing within the proximal right middle lobe bronchus, which has progressed in the interval. Her lower extremity Doppler was done which was negative for any DVT. The patient also is very anxious, tearful with her condition. She thinks her brain is getting foggy. She was clenching the teeth when she came in. Currently resting comfortably and hemodynamically stable. She is okay to be seen by psychiatry in the a.m. Denies any nausea. Appetite is not that great. She is not eating and drinking much. She is not micturating much and she is constipated,having bowel movement once every 2-3 days. Denies any fever. She had some headache earlier, but that is okay now. No blurred visions currently, no ear ache currently, no runny nose currently, no sore throat. Admission Exam Per Admitting Provider The patient is of moderate build, not in acute distress. VITAL SIGNS: Temperature 36.5, pulse 107, respiratory rate 22, blood pressure 112/80, oxygen 97% on room air. HEENT: No pallor, no icterus. Pupils equal, round, and reactive to light. NECK: No JVD, no neck masses, no carotid bruits. CARDIOVASCULAR: S1, S2 heard. Regular rate and rhythm. No murmur, no gallop. RESPIRATORY SYSTEM: Normal AP diameter. No accessory muscle use. No wheezing, no crackles. ABDOMEN: Soft. Mild abdominal discomfort. Mild guarding, no rigidity. No distention. CENTRAL NERVOUS SYSTEM: Cranial nerves II-XII grossly intact, nonfocal. EXTREMITIES: No edema, no erythema. Principal Diagnosis Chest pain depression Discharge Exam General: A&Ox3. tearful HENT: NCAT, MMM, EOMI Eyes: PERRLA Neck: Supple, normal range of motion CVS: normal rate and rhythm Resp: b/l good breath sounds Abdomen: Soft, nondistended and nontender Extremities: absence of any edema Neuro: face symmetric, no focal deficits appreciated Skin: no rashes/lesions/errythema MSK: no joint swelling/erythema Discharge Data Allergies Allergy/AdvReac Type Severity Reaction Status Date / Time Penicillins Allergy Intermediate Swelling Verified 07/29/20 18:40 Consultations 07/29/20 20:56 ED Decision to Admit Stat 07/29/20 22:28 Consult Case Management - Discharge Planning Routine 07/30/20 08:00 Consult Psychiatry Routine Ordered Studies 07/29/20 18:12 US venous doppler LE BI Urgent 07/29/20 18:56 CT angio chest PE protocol Stat Hospital Course (1) Chest pain: EKG was nonischemic. Cardiac enzymes were not concerning. On the day of discharge patient denied any chest pain. ACS was ruled out. Hemodynamically she was doing fine. (2) Metastatic lung carcinoma: Patient was recently diagnosed with adenocarcinoma of the right lung with brain metastasis. Underwent chemotherapy in July 20. Will need to follow- up with her oncologist as an outpatient. Does report some shortness of breath when she is out of bed. Patient remains on room air on the day of discharge. (3) Brain metastases: (4) Weakness: (5) Depression: Patient was tearful and admitted to being depressed. Denies any suicidal thoughts or intentions. Psychiatry was consulted. Patient was recently started on Cymbalta but she refused to take it given its side effects. Psychiatry did consult regarding compliance and his benefits. Patient was given information booklet for outpatient psychiatric therapy. Total Time Total Time Spent Total Time Spent (In Minutes): 35 Discharge Plan Discharge Items Patient Disposition: Home - Self-Care Reason For Visit: SOB Discharge Diagnosis: Chest pain Depression Activity: Resume your previous activity Non-emergency contact: Primary Care Provider Call non-emergency contact if: your symptoms worsen Follow-up/Referrals: Jasiel Fritz DO [Primary Care Provider] - 08/06/20 1:40 pm (Date & Time 08/06/2020 1:40 PM Provider Jasiel Fritz DO Department [facility] ) Diet: Regular Addtl Attending Provider Instructions: Follow-up with your primary care physician and establish care with a psychiatrist as an outpatient Pending Studies at Discharge: No Stand-Alone Forms: My [facility], Smoking Cessation Medications and DC Order Prescriptions: Continued levetiracetam 500 mg tablet 1,000 mg PO BID RF: 0 folic acid 1 mg Tablet 1 mg PO DAILY RF: 0 ondansetron 8 mg Tablet,Disintegrating 8 mg PO Q8H PRN (Reason: Nausea) RF: 0 prochlorperazine maleate 10 mg Tablet 10 mg PO Q6H PRN (Reason: Nausea) RF: 0 dexamethasone 4 mg Tablet 4 mg PO DIRECTED PRN (Reason: PRIOR TO CHEMO) RF: 0 lorazepam 0.5 mg Tablet 0.5 mg PO Q8 PRN (Reason: Anxiety) Qty: 30 RF: 0 morphine 15 mg Tablet Extended Release 15 mg PO Q12H Qty: 60 RF: 0 polyethylene glycol 3350 [Miralax] 17 gram powder in packet 17 g PO QID PRN (Reason: Constipation) RF: 0 sennosides-docusate sodium [Senokot-S] 8.6-50 mg tablet 1 tab PO BID PRN (Reason: Constipation) RF: 0 melatonin 3 mg tablet 3 mg PO HS PRN (Reason: Sleep) RF: 0 docusate sodium 100 mg capsule 100 mg PO BID PRN (Reason: Constipation) RF: 0 oxycodone 5 mg tablet 5 mg PO Q6H PRN (Reason: Pain, Severe) RF: 0 duloxetine 30 mg Capsule,Delayed Release(Dr/Ec) 30 mg PO DAILY RF: 0 Discharge Orders: Discharge Order (Routine); Ordered 08/01/20 Ordered By: Lilly Salazar/Other Patient Handouts: Relieving Back Pain Admission Data Admit Date/Time: 07/29/20 21:36 Attending Provider: Lilly Albright Admit Provider: Peter Chen Primary Care Provider: Jasiel Fritz Other Providers: Peter Chen ; Angela Barney Other Interventions: Discharge Summary Assessment (RN) Last Done: 08/01/20 13:18
== END 2020-08-01 14:20 | disposition home or self-care (01) ==
LOC: 2N 17:32 → ED 17:32 → SUATTDRO 21:36 → 2N 22:06 → 3E 07-30 11:39

== ENCOUNTER 2020-08-06 16:06 | Inpatient (IN) ==
[2020-08-06] MEDS ORDERED: LORazepam 0.5 MG/1 ML VIAL IV STA (18:13)
[2020-08-06] MEDS ORDERED: diphenhydrAMINE 50 MG/ML VIAL IV STA (18:13)
[2020-08-06] MEDS ORDERED: SODIUM CHLORIDE 0.9% 1000ML 1,000 ML IV SCH (18:15)
--- NOTE | 2020-08-06 18:19 | Emergency Department Note ---
Impression & Plan Weakness, Brain metastases, Tachycardia, Hypokalemia, Acute confusion ED Provider Note NAME: YNES MCCARTY AGE: 45 SEX: F : 1975 ARRIVES VIA: Walk-In INFORMANT: [Patient] ED PROVIDER(S): [Georges Kamara MD] CHIEF COMPLAINT: Illness HISTORY OF PRESENT ILLNESS: The patient is a 45-year-old female who has metastatic lung cancer. She is receiving chemotherapy every 3 weeks. Her last chemo was just over 2 weeks ago. The patient feels weak, tired, exhausted. She feels shaky. She feels confused and her tongue feels funny. She does not have any increased pain. There has been no fever. No shortness of breath. No abdominal pain. She has had some diarrhea but no vomiting. She is eating okay. The patient states that she was here in the ED recently and she was felt stable for discharge home. She feels worse since her last visit. The patient is tearful and anxious. She feels that there is something really wrong and that things are being missed. Of note, the patient did have a tumor resection from her brain 2 months ago, she is on Keppra for seizure prophylaxis. REVIEW OF SYSTEMS: See HPI for pertinent positives and negatives. A total of ten systems were reviewed and were otherwise negative. PMHx/PSHx: See Below SOCIAL HISTORY: See Below. PHYSICAL EXAM: GENERAL: Patient is in mild distress, anxious, tearful. HEENT: No acute trauma, normocephalic atraumatic, mucous membranes moist, no nasal congestion, no scleral icterus. Tongue is not edematous, it protrudes in the midline. There is a healing scalp incision along the right temporoparietal region NECK: No stridor, no adenopathy, no meningismus, trachea is midline. LUNGS: Clear to auscultation bilaterally, no wheeze, no rhonchi, breath sounds equal. HEART: Tachycardic, regular rhythm, no murmurs. ABDOMEN: Soft, nontender, bowel sounds positive, no hernias, no peritonitis. EXTREMITIES: No cyanosis or edema, full range of motion of all the joints without pain or difficulty, no signs for acute trauma. NEUROLOGIC: Oriented x 3, no acute motor or sensory deficits, no focal weakness. No speech slur although at times, she seems to stumble over her words when speaking, almost stuttering. No facial droop. No extremity drift, no cerebellar dysfunction. SKIN: No rash, no jaundice, no diaphoresis. DIFFERENTIAL DIAGNOSIS: Infection, dehydration, metabolic abnormality, hypo/hyperglycemia, electrolyte disturbance, anemia, hypoxia, anxiety, worsening metastatic disease, intracranial mass, cardiac sources, intracerebral event, toxicologic issues, stroke, TIA, as well as other pathologies. EMERGENCY DEPARTMENT COURSE/PROCEDURES: ECG: Indication was tachycardia and weakness. The ECG shows a normal sinus rhythm with a rate of 95. There is no ST elevation, no PVCs. The QTc is 442. Continuous Cardiac Monitoring: An order was placed for continuous cardiac monitoring. The monitor shows a rate of 102 with sinus tachycardia. Critical Care Note: I have personally spent 42 minutes of critical care time in the direct management of this patient. This includes bedside care, interpretation of diagnostic studies, and testing, discussion with consultants, patient, and family members, and other required patient management activities. This 42 minutes is in excess of all separately billable procedures. MEDICAL DECISION MAKING: There is no leukocytosis or concerning anemia. There is a normal platelet count. Potassium somewhat low at 3.2, no kidney failure. Alk phos somewhat elevated, this has been documented before. The remaining liver enzymes were unremarkable. Ammonia level was not elevated. ECG showed a sinus rhythm, there was no acute ischemic change. Cardiac enzyme testing x1 is not consistent with acute cardiac injury. The patient appeared to be in a euthyroid state. Covid testing returned negative. Chest film did not show pneumonia or CHF. The right lung mass was again seen. Brain MRI showed multiple metastatic lesions with vasogenic edema. On my exam, the patient had no focal neurologic findings but she did have a hard time finding her words and at times almost seemed to stutter. She was quite anxious. She was not febrile, she was not toxic. The patient received 1000 cc saline bolus. She was given IV potassium. She received IV morphine for pain. She was given IV Ativan for anxiety. She was given her typical dose of oral Keppra 1000 mg. She received IV Benadryl and IV Decadron. The patient has a complex medical history. I suspect her presentation today is from the metastatic disease in her brain. She has some edema around the metastatic lesions which I think is causing her symptoms and complaints. I did speak with oncology. They recommended the Decadron as given above, they also recommended a hospital stay and likely radiation therapy starting tomorrow. I spoke to the patient, I talked with case management. The on-call hospitalist was consulted. Patient does seem to be improved with treatment provided in the ED. Past Med/Surg History Medical History Acute hypokalemia Bilateral leg pain Brain metastases Cancer related pain Chest pain Metastatic lung carcinoma Surgical History H/O bilateral mastectomy H/O craniotomy H/O: hysterectomy History of cholecystectomy Social History Smoking Status: Former smoker Tobacco Type: Cigarettes Second Hand Exposure: No; Hx Alcohol Use: No Hx Substance Use: No Preferred Language: [place]an Communication Ability: Effective Family Advocate Required: No Beliefs That Will Affect Care: None marital status: Current Living Situation: Spouse How many Children do You have: 2 Other Information That Helps Us Care for You: No Feels Safe at Home: Yes Safety Concerns: Feels Safe At This Time Assistive Devices: Glasses Allergies Allergies Allergy/AdvReac Type Severity Reaction Status Date / Time Penicillins Allergy Intermediate Swelling Verified 08/06/20 21:16 Home Meds Home Medications Medication Instructions Recorded Confirmed levetiracetam 1,000 mg PO BID 07/02/20 08/06/20 dexamethasone 4 mg PO DIRECTED PRN 07/09/20 08/06/20 folic acid 1 mg PO DAILY 07/09/20 08/06/20 ondansetron 8 mg PO Q8H PRN 07/09/20 08/06/20 prochlorperazine maleate 10 mg PO Q6H PRN 07/09/20 08/06/20 polyethylene glycol 3350 [Miralax] 17 g PO QID PRN 07/23/20 08/06/20 sennosides-docusate sodium 1 tab PO BID PRN 07/23/20 08/06/20 [Senokot-S] docusate sodium 100 mg PO BID PRN 07/29/20 08/06/20 oxycodone 5 mg PO Q4H PRN 07/29/20 08/06/20 Previous Rx's Medication Instructions Recorded lorazepam 0.5 mg PO Q8 PRN #30 tab 07/16/20 morphine 15 mg PO Q12H #60 tab 07/16/20 Results & Data (ED) Vital Signs Vital Signs - 24 hr 08/06/20 16:09 08/06/20 19:12 08/06/20 19:18 Temperature 36.4 C L Temperature Source Temporal Artery Scan Pulse Rate 122 H 94 H Pulse Rate [Right Finger] 94 H Pulse Rhythm Regular Pulse Rhythm [Right Finger] Regular Pulse Strength [Right Finger] Normal Respiratory Rate 20 21 18 Respiratory Effort / Characteristics Non-Labored Respiratory Depth Normal Blood Pressure 118/78 Blood Pressure [Right Arm] 120/42 L Blood Pressure Mean 91 Blood Pressure Mean [Right Arm] 68 Blood Pressure Position [Right Arm] Pulse Oximetry 100 99 95 Oxygen Delivery Method Room Air Room Air Room Air Sepsis Recent Fever Within 48 Hours No Sepsis New/Unexplained Change in Mental Status N/A Sepsis Action Taken by Nursing No Action Required 08/06/20 22:26 Temperature Temperature Source Pulse Rate Pulse Rate [Right Finger] 99 H Pulse Rhythm Pulse Rhythm [Right Finger] Regular Pulse Strength [Right Finger] Respiratory Rate 20 Respiratory Effort / Characteristics Non-Labored Spontaneous Respiratory Depth Normal Blood Pressure Blood Pressure [Right Arm] 118/68 Blood Pressure Mean Blood Pressure Mean [Right Arm] 84 Blood Pressure Position [Right Arm] Semi-fowlers Pulse Oximetry 97 Oxygen Delivery Method Room Air Sepsis Recent Fever Within 48 Hours Sepsis New/Unexplained Change in Mental Status Sepsis Action Taken by M[facility] Medications Current Medication List: was personally reviewed by me Laboratory Data Attestation: I reviewed the patient's lab results. Result diagrams: 08/07/20 09:17 08/07/20 09:17 Lab Results 08/06/20 08/06/20 08/06/20 Range/Units 18:59 18:59 18:59 WBC Cancelled RBC Cancelled Hgb Cancelled Hct Cancelled MCV Cancelled MCH Cancelled MCHC Cancelled RDW Std Deviation Cancelled RDW Coeff of Suri Cancelled Plt Count Cancelled MPV Cancelled Immature Gran % (Auto) Cancelled Neut % (Auto) Cancelled Lymph % (Auto) Cancelled [place] % (Auto) Cancelled Eos % (Auto) Cancelled Baso % (Auto) Cancelled Neut # (Auto) Cancelled Lymph # (Auto) Cancelled [place] # (Auto) Cancelled Eos # (Auto) Cancelled Baso # (Auto) Cancelled Immature Gran # (Auto) Cancelled Absolute Nucleated RBC Cancelled Nucleated RBC % (auto) Cancelled Neutrophils % (Manual) Cancelled Band Neutrophils % Cancelled Lymphocytes % (Manual) Cancelled Prolymphocyte % Cancelled Reactive Lymphs % (Man) Cancelled Monocytes % (Manual) Cancelled Eosinophils % (Manual) Cancelled Basophils % (Manual) Cancelled Metamyelocytes % (Man) Cancelled Myelocytes % (Man) Cancelled Promyelocytes % (Man) Cancelled Blast Cells % (Manual) Cancelled Plasma Cell % (Manual) Cancelled Other Cells % Cancelled Nucleated RBC % Cancelled Neutrophils # (Manual) Cancelled Band Neutrophils # Cancelled Total Absolute Neuts Cancelled Lymphocytes # (Manual) Cancelled Prolymphocyte # Cancelled Reactive Lymphs # Cancelled Total Abs Lymphocytes Cancelled Monocytes # (Manual) Cancelled Eosinophils # (Manual) Cancelled Basophils # (Manual) Cancelled Metamyelocytes # (Man) Cancelled Myelocytes # (Manual) Cancelled Promyelocytes # (Man) Cancelled Blast Cells # (Man) Cancelled Plasma Cell # (Manual) Cancelled Other Cells # Cancelled Nucleated RBCs # (Man) Cancelled Hypersegmented Neuts Cancelled Hyposegmented Neuts Cancelled Hypogranular Neuts Cancelled Large Granular Lymphs Cancelled # Lrg Granular Lymphs Cancelled Hairy Cells Cancelled Smudge Cells Cancelled Toxic Granulation Cancelled Toxic Vacuolation Cancelled Dohle Bodies Cancelled Vi Rods Cancelled Platelet Estimate Cancelled Hypogranular Platelets Cancelled Clumped Platelets Cancelled Giant Platelets Cancelled Platelet Satelliting Cancelled RBC Morphology Cancelled Polychromasia Cancelled Hypochromasia Cancelled Poikilocytosis Cancelled Basophilic Stippling Cancelled Anisocytosis Cancelled Microcytosis Cancelled Macrocytosis Cancelled Spherocytes Cancelled Pappenheimer Bodies Cancelled Sickle Cells Cancelled Target Cells Cancelled Tear Drop Cells Cancelled Ovalocytes Cancelled Stomatocytes Cancelled Ruiz-[place] Bodies Cancelled Echinocytes Cancelled Acanthocytes (Spur) Cancelled Rouleaux Cancelled RBC Agglutinates Cancelled Schistocytes Cancelled RBC Morph Comment Cancelled Sezary Cell Cancelled Sodium 137 (136-145) mmol/L Potassium 3.2 L (3.5-5.1) mmol/L Chloride 102 (98-107) mmol/L Carbon Dioxide 23 (21-32) mmol/L Anion Gap 12.0 H (3-11) BUN 2 L (7-18) mg/dl Creatinine 0.45 L (0.6-1.2) mg/dl Est Cr Clr Drug Dosing Not Reportable Est GFR ( Amer) 141.2 Est GFR (Non-Af Amer) 121.9 BUN/Creatinine Ratio 4.7 L (10-20) Glucose 80 (70-99) mg/dl Estimat Average Glucose mg/dl Hemoglobin A1c (4.5-5.6) % Calcium 9.6 (8.5-10.1) mg/dl Magnesium 1.9 (1.8-2.4) mg/dl Total Bilirubin 0.6 (0.2-1) mg/dl AST 30 (15-37) U/L ALT 39 (12-78) U/L Alkaline Phosphatase 158 H (45-117) U/L Ammonia < 10.0 L (11-32) umol/L Troponin I < 0.015 (0-0.045) ng/ml Total Protein 7.1 (6.4-8.2) gm/dl Albumin 2.8 L (3.4-5.0) gm/dl Globulin 4.3 H (2.5-4.0) gm/dl Albumin/Globulin Ratio 0.7 L (0.9-2) TSH 0.844 (0.300-4.500) uIu/ml 08/06/20 08/06/20 Range/Units 19:32 19:32 WBC 4.44 L RBC 3.96 L Hgb 11.6 L Hct 34.4 L MCV 86.9 MCH 29.3 MCHC 33.7 RDW Std Deviation 43.2 RDW Coeff of Suri 13.8 Plt Count 229 MPV 9.3 Immature Gran % (Auto) 0.5 Neut % (Auto) 54.3 Lymph % (Auto) 28.8 [place] % (Auto) 15.5 Eos % (Auto) 0.7 Baso % (Auto) 0.2 Neut # (Auto) 2.41 Lymph # (Auto) 1.28 [place] # (Auto) 0.69 H Eos # (Auto) 0.03 Baso # (Auto) 0.01 Immature Gran # (Auto) 0.02 Absolute Nucleated RBC Nucleated RBC % (auto) Neutrophils % (Manual) Band Neutrophils % Lymphocytes % (Manual) Prolymphocyte % Reactive Lymphs % (Man) Monocytes % (Manual) Eosinophils % (Manual) Basophils % (Manual) Metamyelocytes % (Man) Myelocytes % (Man) Promyelocytes % (Man) Blast Cells % (Manual) Plasma Cell % (Manual) Other Cells % Nucleated RBC % Neutrophils # (Manual) Band Neutrophils # Total Absolute Neuts Lymphocytes # (Manual) Prolymphocyte # Reactive Lymphs # Total Abs Lymphocytes Monocytes # (Manual) Eosinophils # (Manual) Basophils # (Manual) Metamyelocytes # (Man) Myelocytes # (Manual) Promyelocytes # (Man) Blast Cells # (Man) Plasma Cell # (Manual) Other Cells # Nucleated RBCs # (Man) Hypersegmented Neuts Hyposegmented Neuts Hypogranular Neuts Large Granular Lymphs # Lrg Granular Lymphs Hairy Cells Smudge Cells Toxic Granulation Toxic Vacuolation Dohle Bodies Vi Rods Platelet Estimate Hypogranular Platelets Clumped Platelets Giant Platelets Platelet Satelliting RBC Morphology Polychromasia Hypochromasia Poikilocytosis Basophilic Stippling Anisocytosis Microcytosis Macrocytosis Spherocytes Pappenheimer Bodies Sickle Cells Target Cells Tear Drop Cells Ovalocytes Stomatocytes Ruiz-[place] Bodies Echinocytes Acanthocytes (Spur) Rouleaux RBC Agglutinates Schistocytes RBC Morph Comment Sezary Cell Sodium (136-145) mmol/L Potassium (3.5-5.1) mmol/L Chloride (98-107) mmol/L Carbon Dioxide (21-32) mmol/L Anion Gap (3-11) BUN (7-18) mg/dl Creatinine (0.6-1.2) mg/dl Est Cr Clr Drug Dosing Est GFR ( Amer) Est GFR (Non-Af Amer) BUN/Creatinine Ratio (10-20) Glucose (70-99) mg/dl Estimat Average Glucose 117 mg/dl Hemoglobin A1c 5.7 H (4.5-5.6) % Calcium (8.5-10.1) mg/dl Magnesium (1.8-2.4) mg/dl Total Bilirubin (0.2-1) mg/dl AST (15-37) U/L ALT (12-78) U/L Alkaline Phosphatase (45-117) U/L Ammonia (11-32) umol/L Troponin I (0-0.045) ng/ml Total Protein (6.4-8.2) gm/dl Albumin (3.4-5.0) gm/dl Globulin (2.5-4.0) gm/dl Albumin/Globulin Ratio (0.9-2) TSH (0.300-4.500) uIu/ml Administered Medications Folic Acid (Folic Acid 1 Mg Tab) 1 mg PO DAILY KAMILA Stop: 09/06/20 08:59 Last Admin: 08/07/20 08:50 Dose: 1 mg Documented by: [id number] Dexamethasone Sodium Phosphate (4 mg/ Syringe) 1 mls @ 1 mls/min IV Q6H KAMILA Stop: 09/06/20 05:59 Last Admin: 08/07/20 06:21 Dose: 1 mls/min Documented by: [id number] Levetiracetam (Levetiracetam 500 Mg Tab) 1,500 mg PO BID KAMILA Stop: 09/06/20 08:59 Last Admin: 08/07/20 08:50 Dose: 1,500 mg Documented by: [id number] Morphine Sulfate (Morphine Sulfate Cr 15 Mg Tabcr) 15 mg PO Q12H KAMILA Stop: 08/21/20 08:59 Last Admin: 08/07/20 08:17 Dose: 15 mg Documented by: [id number] Oxycodone HCl (Oxycodone Hcl Ir 5 Mg Tab (Immediate Release)) 5 mg PO Q4H PRN PRN Reason: Pain, Severe Stop: 08/21/20 02:53 Last Admin: 08/07/20 09:16 Dose: 5 mg Documented by: [id number] Admin: 08/07/20 02:57 Dose: 5 mg Documented by: [id number] Discontinued Medications Dexamethasone (Dexamethasone Sod Inj 10 Mg/Ml Vial) 6 mg IV NOW ONE Stop: 08/06/20 21:36 Last Admin: 08/06/20 22:33 Dose: 6 mg Documented by: [id number] Diphenhydramine HCl (Diphenhydramine 50 Mg/Ml Vial) 25 mg IV NOW STA Stop: 08/06/20 18:14 Last Admin: 08/06/20 19:34 Dose: Not Given Documented by: [id number] Gadobutrol (Gadobutrol 65ml Vial) 7.5 ml IV ONCE ONE Stop: 08/06/20 20:20 Last Admin: 08/06/20 20:19 Dose: 7.5 ml Documented by: [id number] Sodium Chloride (Nss 1000ml) 1,000 mls @ 999 mls/hr IV .Q1H1M KAMILA Stop: 08/06/20 19:15 Last Infusion: 08/06/20 23:04 Dose: 0 mls/hr Documented by: [id number] Admin: 08/06/20 19:36 Dose: 999 mls/hr Documented by: [id number] Lorazepam (Ativan) 0.5 mg in 1 mls @ 1 mls/min IV NOW STA Stop: 08/06/20 18:14 Last Admin: 08/06/20 19:25 Dose: 1 mls/min Documented by: [id number] Potassium Chloride (K Mauri / Wtr) 10 meq in 100 mls @ 100 mls/hr IV ONE ONE Stop: 08/06/20 20:30 Last Infusion: 08/06/20 23:03 Dose: 0 mls/hr Documented by: [id number] Admin: 08/06/20 21:12 Dose: 100 mls/hr Documented by: [id number] Potassium Chloride 40 meq/ (Sodium Chloride) 1,020 mls @ 200 mls/hr IV .Q5H6M ONE Stop: 08/07/20 07:00 Last Infusion: 08/07/20 08:50 Dose: 0 mls/hr Documented by: [id number] Admin: 08/07/20 03:28 Dose: 200 mls/hr Documented by: [id number] Levetiracetam (Levetiracetam 500 Mg Tab) 1,000 mg PO NOW STA Stop: 08/06/20 21:21 Last Admin: 08/06/20 22:12 Dose: 1,000 mg Documented by: [id number] Levetiracetam (Levetiracetam 500 Mg Tab) 500 mg PO NOW STA Stop: 08/06/20 23:43 Last Admin: 08/07/20 00:24 Dose: 500 mg Documented by: [id number] Morphine Sulfate (Morphine Sulfate 4 Mg/Ml 1 Ml Carp\Vial) 4 mg IV Q30M PRN PRN Reason: Pain Stop: 08/20/20 21:19 Last Admin: 08/06/20 22:13 Dose: 4 mg Documented by: [id number] Morphine Sulfate (Morphine Sulfate Cr 15 Mg Tabcr) 15 mg PO NOW STA Stop: 08/07/20 00:40 Last Admin: 08/07/20 00:53 Dose: 15 mg Documented by: [id number] Potassium Chloride (Potassium Chloride Crtab 20 Meq Tabcr) 40 meq PO NOW STA Stop: 08/06/20 22:38 Last Admin: 08/06/20 23:12 Dose: Not Given Documented by: [id number] Imaging Data Radiologist's Impression: XR chest 1V portable CLINICAL HISTORY: weakness COMPARISON STUDY: 07/29/2020 FINDINGS: The cardiac and mediastinal contours remain stable. There is a left- sided A-Port catheter present. There is a persistent right midlung zone pulmonary mass currently measuring 5.5 cm. There is no acute parenchymal consolidation. There are no significant pleural effusions IMPRESSION: 1. Persistent right midlung zone pulmonary mass currently measuring 5.5 cm. This remains relatively similar to the preceding study. MRI OF THE BRAIN WITHOUT AND WITH IV CONTRAST CLINICAL HISTORY: history of brain mets, confusion PROSTATIC LUNG CARCINOMA COMPARISON STUDY: Noncontrast head CT dated 01/04/2021 TECHNIQUE: MRI of the brain was performed from the vertex to the skull base utilizing various T1 and T2 weighted sequences. Following the IV administration of 7.5 mL of Gadavist contrast, additional enhanced images were obtained. FINDINGS: Sagittal T1, axial diffusion, proton density and T2 weighted axial, coronal FLAIR, and pre and post axial T1-weighted images were acquired. These were supplemented with post gadolinium coronal T1 weighted images. There are postsurgical changes of a right sided craniotomy. There is a 4 mm fluid collection subjacent to the craniotomy site. There is an 11 mm cystic lesion within the right medial occipital lobe with mild surrounding vasogenic edema. There is a 6.5 mm cystic lesion within the right anterior medial cerebell ar hemisphere. There is mild hemosiderin in the right parietal lobes adjacent the craniotomy site, likely related to prior surgery. There is mild vasogenic edema subjacent to the craniotomy site. There is a 3 mm cystic lesion within the left frontal lobe. Axial diffusion-weighted images reveal no evidence of acute or subacute infarction. There is no evidence of ventricular dilatation. Proton density T2-weighted and FLAIR images reveal areas of vasogenic edema adjacent to the above-mentioned cystic lesions. Additional areas of vasogenic edema are also evident. There are no abnormal flow voids. The right occipital lesion demonstrates rim enhancement. The cerebellar lesion demonstrates rim enhancement. There is a 6 mm enhancing lesion involving the left frontal vertex. There is minor parenchymal enhancement subjacent to the craniotomy site. There is dural enhancement subjacent the craniotomy site. There is a 2 mm focus of enhancement within the right frontal lobe. There is an 8 mm rim-enhancing lesion within the left parasagittal posterior parietal lobe. 2 additional subtle enhancing lesions are present within the left frontal lobe. IMPRESSION: 1. Postsurgical changes of a right-sided craniotomy with a small postsurgical fluid collection subjacent to craniotomy site 2. There are at least 8 enhancing parenchymal lesions many associated with vasogenic edema, several of which are cystic with rim enhancement. The findings are viewed as highly suspicious for multifocal intracranial metastatic disease. Discharge Plan Visit Data Chief Complaint: Illness Stated Complaint: WEAKNESS, DRY MOUTH, DIZZY ED Provider: Georges Kamara Discharge Problem: Weakness, Brain metastases, Tachycardia, Hypokalemia, Acute confusion Patient Disposition: Admitted As Inpatient Condition: Fair Discharge Instructions Interventions: ED Discharge Assessment Last Done: 08/07/20 02:06
--- NOTE | 2020-08-06 19:16 | XRay Report ---
XR chest 1V portable CLINICAL HISTORY: weakness COMPARISON STUDY: 07/29/2020 FINDINGS: The cardiac and mediastinal contours remain stable. There is a left-sided A-Port catheter p resent. There is a persistent right midlung zone pulmonary mass currently measuring 5.5 cm. There is no acute parenchymal consolidation. There are no significant pleural effusions IMPRESSION: 1. Persistent right midlung zone pulmonary mass currently measuring 5.5 cm. This remains relatively s imilar to the preceding study. ACT 112: Negative or not required by law. Electronically signed by: Axel Hook M.D. 08/06/2020 7:15 PM
[2020-08-06 19:28] LABS: Alanine Aminotransferase 39 U/L (12-78); Albumin Level 2.8 gm/dl (3.4-5.0); Aspartate Aminotransferase 30 U/L (15-37); BUN Creatinine Ratio 4.7 (10-20); Blood Urea Nitrogen 2 mg/dl (7-18); Calcium 9.6 mg/dl (8.5-10.1); Carbon Dioxide 23 mmol/L (21-32); Chloride 102 mmol/L (98-107); Est GFR (African American) 141.2; Est GFR (Non-African American) 121.9; Glucose 80 mg/dl (70-99); Magnesium 1.9 mg/dl (1.8-2.4); Potassium 3.2 mmol/L (3.5-5.1); Sodium 137 mmol/L (136-145)
[2020-08-06] MEDS ORDERED: POTASSIUM CHLORIDE / WTR 10 MEQ/100 ML PLCT IV ONE (19:31)
[2020-08-06 19:39] LABS: Albumin Globulin Ratio 0.7 (0.9-2); Alkaline Phosphatase 158 U/L (45-117); Bilirubin,Total 0.6 mg/dl (0.2-1); Globulin 4.3 gm/dl (2.5-4.0); Thyroid Stimulating Hormone 0.844 uIu/ml (0.300-4.500); Total Protein 7.1 gm/dl (6.4-8.2); Troponin I < 0.015 ng/ml (0-0.045)
[2020-08-06 19:41] LABS: Basophils # (auto) 0.01 K/uL (0-0.2); Basophils % (auto) 0.2 %; Eosinophils # (auto) 0.03 K/uL (0-0.5); Eosinophils % (auto) 0.7 %; Hematocrit (blood only) 34.4 % (37-47); Hemoglobin 11.6 g/dL (12.0-16.0); Immature Granulocytes # (auto) 0.02 K/uL (0.00-0.02); Immature Granulocytes % (auto) 0.5 %; Lymphocytes # (auto) 1.28 K/uL (1.2-3.4); Lymphocytes % (auto) 28.8 %; Mean Corpuscular Hemoglobin 29.3 pg (25-34); Mean Corpuscular Hgb Conc 33.7 g/dL (32-36); Mean Corpuscular Volume 86.9 fL (80-100); Mean Platelet Volume 9.3 fL (7.4-10.4); Monocytes # (auto) 0.69 K/uL (0.11-0.59); Monocytes % (auto) 15.5 %; Neutrophils # (auto) 2.41 K/uL (1.4-6.5); Neutrophils % (auto) 54.3 %; Platelet Count 229 K/uL (130-400); RDW Coefficient of Variation 13.8 % (11.5-14.5); RDW Standard Deviation 43.2 fL (36.4-46.3); Red Blood Count 3.96 M/uL (4.2-5.4); White Blood Count 4.44 K/uL (4.8-10.8)
[2020-08-06] MEDS ORDERED: GADOBUTROL 65ML VIAL IV ONE (20:19)
--- NOTE | 2020-08-06 20:53 | Magnetic Resonance Report ---
MRI OF THE BRAIN WITHOUT AND WITH IV CONTRAST CLINICAL HISTORY: history of brain mets, confusion PROSTATIC LUNG CARCINOMA COMPARISON STUDY: Noncontrast head CT dated 01/04/2021 TECHNIQUE: MRI of the brain was performed from the vertex to the skull base utilizing various T1 and T2 weighted sequences. Following the IV administration of 7.5 mL of Gadavist contrast, additional enh anced images were obtained. FINDINGS: Sagittal T1, axial diffusion, proton density and T2 weighted axial, coronal FLAIR, and pre and post a xial T1-weighted images were acquired. These were supplemented with post gadolinium coronal T1 weight ed images. There are postsurgical changes of a right sided craniotomy. There is a 4 mm fluid collection subjacen t to the craniotomy site. There is an 11 mm cystic lesion within the right medial occipital lobe with mild surrounding vasogenic edema. There is a 6.5 mm cystic lesion within the right anterior medial c erebellar hemisphere. There is mild hemosiderin in the right parietal lobes adjacent the craniotomy s ite, likely related to prior surgery. There is mild vasogenic edema subjacent to the craniotomy site. There is a 3 mm cystic lesion within the left frontal lobe. Axial diffusion-weighted images reveal no evidence of acute or subacute infarction. There is no evidence of ventricular dilatation. Proton density T2-weighted and FLAIR images reveal areas of vasogenic edema adjacent to the above-men tioned cystic lesions. Additional areas of vasogenic edema are also evident. There are no abnormal flow voids. The right occipital lesion demonstrates rim enhancement. The cerebellar lesion demonstrates rim enhan cement. There is a 6 mm enhancing lesion involving the left frontal vertex. There is minor parenchyma l enhancement subjacent to the craniotomy site. There is dural enhancement subjacent the craniotomy s ite. There is a 2 mm focus of enhancement within the right frontal lobe. There is an 8 mm rim-enhanci ng lesion within the left parasagittal posterior parietal lobe. 2 additional subtle enhancing lesions are present within the left frontal lobe. IMPRESSION: 1. Postsurgical changes of a right-sided craniotomy with a small postsurgical fluid collection subjac ent to craniotomy site 2. There are at least 8 enhancing parenchymal lesions many associated with vasogenic edema, several o f which are cystic with rim enhancement. The findings are viewed as highly suspicious for multifocal intracranial metastatic disease. ACT 112: Negative or not required by law. Electronically signed by: Axel Hook M.D. 08/06/2020 8:52 PM
[2020-08-06] MEDS ORDERED: MoRPHine SULFATE 4 MG/ML 1 ML CARP\\VIAL IV PRN (21:20)
[2020-08-06] MEDS ORDERED: levETIRAcetam 500 MG TAB PO STA ×2 (21:20→23:42)
[2020-08-06] MEDS ORDERED: DEXAMETHASONE SOD INJ 10 MG/ML VIAL IV ONE (21:35)
--- NOTE | 2020-08-06 22:36 | History & Physical Report ---
Date of Service August 06, 2020 Assessment & Plan (1) Intracranial pressure increased: Persistent brain mets with vasogenic edema hx NSCLC with brain mets status post stereotactic radiosurgery/brain tumor resection ongoing chemotherapy Probable breakthrough seizure secondary to above history TIA as per records Left breast cancer status post mastectomy, history BRCA gene mutation positivity Hypokalemia secondary to poor p.o. intake Cancer pain on narcotics Hyperglycemia likely prediabetes, hemoglobin A1c of 6.25 May 2020 past tobacco abuse Medical telemetry Decadron for tumorigenic edema Radiation oncology consultation for recurrent brain mets as per [facility] oncologist recommendation. Increase current Keppra dose from 1000 mg BID to 1500 mg BID. Seizure precautions Neurology consult Re: Probable breakthrough seizure Replace potassium, IVF May need insulin coverage for steroid-induced hyperglycemia DVT prophylaxis. SCDs RE brain mets Full code Text document was generated using [employer] voice recognition software. It may contain grammatical or spelling errors. Kindly contact undersigned for clarification of any documentation item in question. History of Present Illness Chief Complaint: Shaky, eyes crazy, bit my tongue, possible seizures Primary Care Provider: Jasiel Fritz DO History obtained from patient and records. Medical history significant for NSCLC with brain mets status post stereotactic radiosurgery, brain tumor resection (05/2020), history seizures, history TIA, breast cancer status post mastectomy, history BRCA gene mutation positivity, past tobacco abuse. Recent confinement last week for chest pain and depression. Patient felt tired and shaky today. Later she felt fuzzy, eyes going crazy up and down as per patient. Achy headache symptoms. Patient bit her tongue involuntarily. Patient worried about recurrent seizures. Compliant with home medications. Patient denies chest pain, S OB. Patient brought to the ER for evaluation. Decadron given for brain mets findings on MRI. Medical History as above Preop brain MRI 04/2020 Multiple enhancing lesions are noted in the supratentorial and infratentorial brain associated with perilesional edema. There are at least 6 lesions identified, detailed below. No hemorrhagic component associated with these lesions. There is no significant midline shift or hydrocephalus. Perfusion is non-diagnostic could be related to timing of contrast. 1. 1.6 x 1.5 cm enhancing lesion centered in the posterior right frontal lobe with significant surrounding vasogenic edema, series 22 image 103. Marked restricted diffusion is associated with this lesion, suggestive of high cellularity. 2. 0.8 mm enhancing lesion centered in the right inferior frontal lobe with surrounding vasogenic edema, series 22 image 105. 3. A 4 mm enhancing nodule is noted involving the anterior aspect of the left insular region, series 22, image 91. 4. 4.4 mm enhancing nodule is noted in the right putamen, series 22, image 78. 5. 1.4 x 1.4 cm enhancing lesion with 6 6 component centered in the right occipital lobe, series 22 image 48. 6. 6 mm enhancing nodule centered in the cerebellar vermis, series 22, image 34. The underlying brain volume is within normal limits for age. Flow voids are preserved in the proximal intracranial vessels.The paranasal sinuses and mastoid air cells are clear. Calvarium and visualized craniofacial soft tissues are unremarkable. Post SRS/Postop Brain MRI 06/06/2020 Expected interval postop changes right parietal craniotomy for resection of right frontal lobe lesion with mild pneumocephalus and pulse of blood products. Vasogenic edema and mass-effect are stable. Other supratentorial and in fratentorial metastatic lesions are without significant change from recent prior examination. PET scan June 2020 showed metabolically active right upper lobe pulmonary mass with extensive lymphadenopathy in the neck chest and abdomen and bilateral adrenal mets. 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 Allergies Allergy/AdvReac Type Severity Reaction Status Date / Time Penicillins Allergy Intermediate Swelling Verified 08/06/20 21:16 Home Medications Medication Instructions Recorded Confirmed Type levetiracetam 1,000 mg PO BID 07/02/20 08/06/20 History dexamethasone 4 mg PO DIRECTED PRN 07/09/20 08/06/20 History folic acid 1 mg PO DAILY 07/09/20 08/06/20 History ondansetron 8 mg PO Q8H PRN 07/09/20 08/06/20 History prochlorperazine maleate 10 mg PO Q6H PRN 07/09/20 08/06/20 History lorazepam 0.5 mg PO Q8 PRN #30 tab 07/16/20 08/06/20 Rx morphine 15 mg PO Q12H #60 tab 07/16/20 08/06/20 Rx polyethylene glycol 3350 [Miralax] 17 g PO QID PRN 07/23/20 08/06/20 History sennosides-docusate sodium 1 tab PO BID PRN 07/23/20 08/06/20 History [Senokot-S] docusate sodium 100 mg PO BID PRN 07/29/20 08/06/20 History oxycodone 5 mg PO Q4H PRN 07/29/20 08/06/20 History Past Med/Surg History Medical History Acute hypokalemia Bilateral leg pain Brain metastases Cancer related pain Chest pain Metastatic lung carcinoma Surgical History H/O bilateral mastectomy H/O craniotomy H/O: hysterectomy History of cholecystectomy Social History Smoking Status: Former smoker Tobacco Type: Cigarettes Second Hand Exposure: No; Hx Alcohol Use: No Hx Substance Use: No Preferred Language: Slovak Communication Ability: Effective Commutator Repairer Required: No Beliefs That Will Affect Care: None marital status: Current Living Situation: Spouse How many Children do You have: 2 Other Information That Helps Us Care for You: No Feels Safe at Home: Yes Safety Concerns: Feels Safe At This Time Assistive Devices: Glasses Review of Systems Review of Systems: As per HPI, all 10 systems reviewed, all other ROS negative Physical Exam Physical Exam: GENERAL: uncomfortable, anxious, occasionally tearful, no respiratory distress SKIN: Pallor , warm HEENT: Bespectacled, pale palpebral conjunctivae, no ptosis, dry buccal mucosa, tongue contusion NECK : Supple, no tenderness CHEST : Decreased breath sounds, no tenderness HEART : RRR, no obvious murmurs ABDOMEN: Some distention, nontender EXTREMITIES : No LE swelling/tenderness, no other conspicuous deformities noted NEUROLOGIC : Coherent, no facial asymmetry, no other gross focality Results & Data Results & Data ([facility]) Vital Signs (Past 12 Hours) Vital Signs Temp Pulse Pulse Resp BP BP Pulse Ox 08/06/20 22:26 99 H 20 118/68 97 08/06/20 19:18 94 H 18 95 08/06/20 19:12 94 H 21 120/42 L 99 08/06/20 16:09 36.4 C L 122 H 20 118/78 100 Laboratory Results Laboratory Results WBC 4.44 K/uL (4.8-10.8) L 08/06/20 19:32 RBC 3.96 M/uL (4.2-5.4) L 08/06/20 19:32 Hgb 11.6 g/dL (12.0-16.0) L 08/06/20 19:32 Hct 34.4 % (37-47) L 08/06/20 19:32 MCV 86.9 fL (80-100) 08/06/20 19:32 MCH 29.3 pg (25-34) 08/06/20 19: MCHC 33.7 g/dL (32-36) 08/06/20 19:32 RDW Std Deviation 43.2 fL (36.4-46.3) 08/06/20 19:32 RDW Coeff of Suri 13.8 % (11.5-14.5) 08/06/20 19:32 Plt Count 229 K/uL (130-400) 08/06/20 19:32 MPV 9.3 fL (7.4-10.4) 08/06/20 19:32 Immature Gran % (Auto) 0.5 % 08/06/20 19:32 Neut % (Auto) 54.3 % 08/06/20 19:32 Lymph % (Auto) 28.8 % 08/06/20 19:32 [place] % (Auto) 15.5 % 08/06/20 19:32 Eos % (Auto) 0.7 % 08/06/20 19:32 Baso % (Auto) 0.2 % 08/06/20 19:32 Neut # (Auto) 2.41 K/uL (1.4-6.5) 08/06/20 19:32 Lymph # (Auto) 1.28 K/uL (1.2-3.4) 08/06/20 19:32 [place] # (Auto) 0.69 K/uL (0.11-0.59) H 08/06/20 19:32 Eos # (Auto) 0.03 K/uL (0-0.5) 08/06/20 19:32 Baso # (Auto) 0.01 K/uL (0-0.2) 08/06/20 19:32 Immature Gran # (Auto) 0.02 K/uL (0.00-0.02) 08/06/20 19:32 Absolute Nucleated RBC Cancelled 08/06/20 18:59 Nucleated RBC % (auto) Cancelled 08/06/20 18:59 Neutrophils % (Manual) Cancelled 08/06/20 18:59 Band Neutrophils % Cancelled 08/06/20 18:59 Lymphocytes % (Manual) Cancelled 08/06/20 18:59 Prolymphocyte % Cancelled 08/06/20 18:59 Reactive Lymphs % (Man) Cancelled 08/06/20 18:59 Monocytes % (Manual) Cancelled 08/06/20 18:59 Eosinophils % (Manual) Cancelled 08/06/20 18:59 Basophils % (Manual) Cancelled 08/06/20 18:59 Metamyelocytes % (Man) Cancelled 08/06/20 18:59 Myelocytes % (Man) Cancelled 08/06/20 18:59 Promyelocytes % (Man) Cancelled 08/06/20 18:59 Blast Cells % (Manual) Cancelled 08/06/20 18:59 Plasma Cell % (Manual) Cancelled 08/06/20 18:59 Other Cells % Cancelled 08/06/20 18:59 Nucleated RBC % Cancelled 08/06/20 18:59 Neutrophils # (Manual) Cancelled 08/06/20 18:59 Band Neutrophils # Cancelled 08/06/20 18:59 Total Absolute Neuts Cancelled 08/06/20 18:59 Lymphocytes # (Manual) Cancelled 08/06/20 18:59 Prolymphocyte # Cancelled 08/06/20 18:59 Reactive Lymphs # Cancelled 08/06/20 18:59 Total Abs Lymphocytes Cancelled 08/06/20 18:59 Monocytes # (Manual) Cancelled 08/06/20 18:59 Eosinophils # (Manual) Cancelled 08/06/20 18:59 Basophils # (Manual) Cancelled 08/06/20 18:59 Metamyelocytes # (Man) Cancelled 08/06/20 18:59 Myelocytes # (Manual) Cancelled 08/06/20 18:59 Promyelocytes # (Man) Cancelled 08/06/20 18:59 Blast Cells # (Man) Cancelled 08/06/20 18:59 Plasma Cell # (Manual) Cancelled 08/06/20 18:59 Other Cells # Cancelled 08/06/20 18:59 Nucleated RBCs # (Man) Cancelled 08/06/20 18:59 Hypersegmented Neuts Cancelled 08/06/20 18:59 Hyposegmented Neuts Cancelled 08/06/20 18:59 Hypogranular Neuts Cancelled 08/06/20 18:59 Large Granular Lymphs Cancelled 08/06/20 18:59 # Lrg Granular Lymphs Cancelled 08/06/20 18:59 Hairy Cells Cancelled 08/06/20 18:59 Smudge Cells Cancelled 08/06/20 18:59 Toxic Granulation Cancelled 08/06/20 18:59 Toxic Vacuolation Cancelled 08/06/20 18:59 Dohle Bodies Cancelled 08/06/20 18:59 Vi Rods Cancelled 08/06/20 18:59 Platelet Estimate Cancelled 08/06/20 18:59 Hypogranular Platelets Cancelled 08/06/20 18:59 Clumped Platelets Cancelled 08/06/20 18:59 Giant Platelets Cancelled 08/06/20 18:59 Platelet Satelliting Cancelled 08/06/20 18:59 RBC Morphology Cancelled 08/06/20 18:59 Polychromasia Cancelled 08/06/20 18:59 Hypochromasia Cancelled 08/06/20 18:59 Poikilocytosis Cancelled 08/06/20 18:59 Basophilic Stippling Cancelled 08/06/20 18:59 Anisocytosis Cancelled 08/06/20 18:59 Microcytosis Cancelled 08/06/20 18:59 Macrocytosis Cancelled 08/06/20 18:59 Spherocytes Cancelled 08/06/20 18:59 Pappenheimer Bodies Cancelled 08/06/20 18:59 Sickle Cells Cancelled 08/06/20 18:59 Target Cells Cancelled 08/06/20 18:59 Tear Drop Cells Cancelled 08/06/20 18:59 Ovalocytes Cancelled 08/06/20 18:59 Stomatocytes Cancelled 08/06/20 18:59 Ruiz-Kelford Bodies Cancelled 08/06/20 18:59 Echinocytes Cancelled 08/06/20 18:59 Acanthocytes (Spur) Cancelled 08/06/20 18:59 Rouleaux Cancelled 08/06/20 18:59 RBC Agglutinates Cancelled 08/06/20 18:59 Schistocytes Cancelled 08/06/20 18:59 RBC Morph Comment Cancelled 08/06/20 18:59 Sezary Cell Cancelled 08/06/20 18:59 Sodium 137 mmol/L (136-145) 08/06/20 18:59 Potassium 3.2 mmol/L (3.5-5.1) L 08/06/20 18:59 Chloride 102 mmol/L (98-107) 08/06/20 18:59 Carbon Dioxide 23 mmol/L (21-32) 08/06/20 18:59 Anion Gap 12.0 (3-11) H 08/06/20 18:59 BUN 2 mg/dl (7-18) L 08/06/20 18:59 Creatinine 0.45 mg/dl (0.6-1.2) L 08/06/20 18:59 Est Cr Clr Drug Dosing Not Reportable 08/06/20 18:59 Est GFR ( Amer) 141.2 08/06/20 18:59 Est GFR (Non-Af Amer) 121.9 08/06/20 18:59 BUN/Creatinine Ratio 4.7 (10-20) L 08/06/20 18:59 Glucose 80 mg/dl (70-99) 08/06/20 18:59 Calcium 9.6 mg/dl (8.5-10.1) 08/06/20 18:59 Magnesium 1.9 mg/dl (1.8-2.4) 08/06/20 18:59 Total Bilirubin 0.6 mg/dl (0.2-1) 08/06/20 18:59 AST 30 U/L (15-37) 08/06/20 18:59 ALT 39 U/L (12-78) 08/06/20 18:59 Alkaline Phosphatase 158 U/L (45-117) H 08/06/20 18:59 Ammonia < 10.0 umol/L (11-32) L 08/06/20 18:59 Troponin I < 0.015 ng/ml (0-0.045) 08/06/20 18:59 Total Protein 7.1 gm/dl (6.4-8.2) 08/06/20 18:59 Albumin 2.8 gm/dl (3.4-5.0) L 08/06/20 18:59 Globulin 4.3 gm/dl (2.5-4.0) H 08/06/20 18:59 Albumin/Globulin Ratio 0.7 (0.9-2) L 08/06/20 18:59 TSH 0.844 uIu/ml (0.300-4.500) 08/06/20 18:59 Diagnostic Findings Brain MRI: 1. Postsurgical changes of a right-sided craniotomy with a small postsurgical fluid collection subjacent to craniotomy site 2. There are at least 8 enhancing parenchymal lesions many associated with vasogenic edema, several of which are cystic with rim enhancement. The findings are viewed as highly suspicious for multifocal intracranial metastatic disease. Chest x-ray : Persistent right midlung zone pulmonary mass currently measuring 5.5 cm. This remains relatively similar to the preceding study. EKG as per my interpretation : Rate 95, NSR, normal axis, T wave abnormality septal leads, low voltage
[2020-08-06] MEDS ORDERED: POTASSIUM CHLORIDE CRTAB 20 MEQ TABCR PO STA (22:37)
[2020-08-07] MEDS ORDERED: MoRPHine SULFATE CR 15 MG TABCR PO STA (00:39)
[2020-08-07] MEDS ORDERED: POTASSIUM CHLORIDE 40 MEQ in SODIUM CHLORIDE 0.9% 1000ML 1,000 ML IV ONE (01:55)
[2020-08-07] MEDS ORDERED: PROMETHAZINE HCL 12.5 MG in SODIUM CHLORIDE 0.9% 50 ML IV PRN (02:50)
[2020-08-07] MEDS ORDERED: LORazepam 1 MG/2 ML VIAL IV PRN (02:50)
[2020-08-07] MEDS ORDERED: DOCUSATE SODIUM 100 MG CAP PO PRN (02:50)
[2020-08-07] MEDS ORDERED: DOCUSATE SODIUM/SENNA 50/8.6MG TAB PO PRN (02:50)
[2020-08-07] MEDS ORDERED: POLYETHYLENE (MIRALAX) 17 GM PACK PO PRN (02:50)
[2020-08-07] MEDS ORDERED: LORazepam 0.5 MG TAB PO PRN (02:50)
[2020-08-07] MEDS ORDERED: ACETAMINOPHEN 325 MG TAB PO PRN (02:50)
[2020-08-07] MEDS: oxyCODONE HCL IR 5 MG TAB (IMMEDIATE RELEASE) PO PRN ×3 (02:57→22:04)
[2020-08-07 03:14] LABS: Appearance Urine Clear (Clear); Bilirubin Urine Negative (Negative); Blood Urine Negative (Negative); Color Urine Yellow; Glucose Urine UA Negative (Negative); Ketones Urine 3+ (Negative); Leukocyte Esterase Urine Negative (Negative); Nitrite Urine Negative (Negative); Protein Urine Negative (Negative); Specific Gravity Urine 1.019 (1.000-1.030); Urobilinogen Urine Negative (Negative)
[2020-08-07] MEDS: dexAMETHasone 4 MG in SYRINGE 0 ML IV SCH ×4 (06:21→23:52)
[2020-08-07 06:46] LABS: Estimated Average Glucose 117 mg/dl; Hemoglobin A1C 5.7 % (4.5-5.6)
[2020-08-07] MEDS: MoRPHine SULFATE CR 15 MG TABCR PO SCH ×2 (08:17→20:38)
[2020-08-07] MEDS: FOLIC ACID 1 MG TAB PO SCH (08:50)
[2020-08-07] MEDS: levETIRAcetam 500 MG TAB PO SCH ×2 (08:50→20:38)
--- NOTE | 2020-08-07 09:14 | Radiation OncologyConsultation ---
Date of Consultation August 07, 2020 Assessment & Plan (1) Brain metastases: Assessment: Ms. Copeland is a 45-year-old female with a history of breast cancer and lung cancer with brain metastasis. The patient underwent stereotactic radiosurgery in May [address] Vail and Dr[address] Justice. The patient did have significant vasogenic edema involving the right temporal lobe metastasis and underwent a right temporal craniotomy by Dr. Justice in June 2020. The patient has been started on chemotherapy underneath the supervision of Dr. Barillas. The patient was admitted to the hospital due to a recent seizure at home. The patient did have an MRI of the brain completed on 08/06/2020 which does reveal potential progression of disease (outside imaging scans are unavailable for review). I have been asked to evaluate the patient regarding radiation therapy. Plan: 1. With respect to the new areas of involvement, I do not believe they are currently responsible for her most recent seizures prior to admission to the hospital. More likely, the patient may have developed increased vasogenic edema involving the areas previously treated with stereotactic radiosurgery in May 2020 which may have led to the seizure or it may be due to an unrelated issue which I would defer to neurology. Appreciate neurology input. 2. I have put in a phone call to speak with Dr. Vail from radiation oncology at [facility] in [place], [place] to discuss future plans for radiation therapy with options including hippocampal sparing whole brain radiation therapy or further stereotactic radiation therapy. 3. For the primary medical team, no radiation therapy needs to be completed in the inpatient setting. Treatment may be completed in the outpatient setting. The patient may be discharged as per primary medical team and neurology. 4. With respect to dexamethasone, it would be reasonable with the primary team would attempt to decrease the dose down to 4 mg twice a day and keep the patient on the dose until next follow-up with radiation oncology or medical oncology. If patient develops symptoms, patient should be brought back to Decadron 4 mg 3- 4 times a day. I will document a follow-up note after I discussed the case with Dr. Vail. Patient and family encouraged to call us with any further questions or concerns. History of Present Illness Attending Physician: Lilly Albright MD History of Present Illness 2006. Mastectomy for breast cancer. BRCA1 positive. 08/2007. Status post 4 cycles of AC chemotherapy. 05/11/2020. CT of chest. IMPRESSION: 1. 5.8 cm right upper lobe pulmonary mass which crosses the fissure and extends into the superior segment the right lower lobe 2. Pathologic mediastinal, hilar, and left axillary lymphadenopathy 3. Mildly enlarged upper abdominal lymph nodes. 05/12/2020. MRI brain. IMPRESSION: FINDINGS: Multiple enhancing lesions are noted in the supratentorial and infratentorial brain associated with perilesional edema. There are at least 6 lesions identified, detailed below. No hemorrhagic component associated with these lesions. There is no significant midline shift or hydrocephalus. Perfusion is non-diagnostic could be related to timing of contrast. 1. 1.6 x 1.5 cm enhancing lesion centered in the posterior right frontal lobe with significant surrounding vasogenic edema, series 22 image 103. Marked restricted diffusion is associated with this lesion, suggestive of high cellularity. 2. 0.8 mm enhancing lesion centered in the right inferior frontal lobe with surrounding vasogenic edema, series 22 image 105. 3. A 4 mm enhancing nodule is noted involving the anterior aspect of the left insular region, series 22, image 91. 4. 4.4 mm enhancing nodule is noted in the right putamen, series 22, image 78. 5. 1.4 x 1.4 cm enhancing lesion with 6 6 component centered in the right occipital lobe, series 22 image 48. 6. 6 mm enhancing nodule centered in the cerebellar vermis, series 22, image 34. Multiple intracranial metastatic lesions, as detailed above. No significant midline shift or hydrocephalus. 05/14/2020. Lung, right, fine-needle aspiration. Adenocarcinoma of the lung, poorly differentiated. ALK negative. PD-L1 no expression. Negative for EGFR mutations. Negative for ROS1 rearrangement. 05/29/2020. Stereotactic radiosurgery to multiple brain metastasis. [facility]. [employer] LINAC based. 6 lesions treated. 22 Gy. 1 fraction. 06/02/2020. MRI brain. IMPRESSION: Interval increase in size of supratentorial and infratentorial lesions since prior examination with a total of 8 lesions. The largest right frontal lobe precentral gyrus lesion is associated with significantly increased vasogenic edema and mass effect, resulting in 10 mm of [id number] midline shift. Findings are likely predominantly attributable to acute postradiation effects following recent SRS on 05/29/2020. 06/06/2020. Right frontal craniotomy. Metastatic adenocarcinoma of lung. 06/06/2020. MRI brain. IMPRESSION: Expected postoperative changes of right frontal tumor resection. 06/19/2020. CT of Abdomen/Pelvis. IMPRESSION: 1. Mild hepatic steatosis 2. No evidence of bowel obstruction. No evidence of free air 3. Normal appendix. No evidence of acute diverticulitis 4. Mild periportal, aortocaval, and mesenteric lymphadenopathy 5. Subtle nonspecific centrilobular pulmonary nodules 6. Mild left adrenal enlargement. 06/27/2020. PET/CT. IMPRESSION: Metabolically active right upper lobe pulmonary mass, with extensive lymphadenopathy in the neck, chest and abdomen, and bilateral adrenal metastases. 07/18/2020. Medical oncology follow-up. Recommendation is to proceed with first cycle of chemotherapy. Rescheduled due to issues with vascular access. 07/20/2020. Initiation of chemotherapy. Pembrolizumab, pemetrexed carboplatin. 08/06/2020. Patient admitted to [facility] due to seizure. Radiation oncology consultation placed. 08/06/2020. MRI of Brain. IMPRESSION: 1. Postsurgical changes of a right-sided craniotomy with a small postsurgical fluid collection subjacent to craniotomy site 2. There are at least 8 enhancing parenchymal lesions many associated with vasogenic edema, several of which are cystic with rim enhancement. The findings are viewed as highly suspicious for multifocal intracranial metastatic disease. Allergies Allergy/AdvReac Type Severity Reaction Status Date / Time Penicillins Allergy Intermediate Swelling Verified 08/06/20 21:16 Home Medications Medication Instructions Recorded Confirmed Type levetiracetam 1,000 mg PO BID 07/02/20 08/06/20 History dexamethasone 4 mg PO DIRECTED PRN 07/09/20 08/06/20 History folic acid 1 mg PO DAILY 07/09/20 08/06/20 History ondansetron 8 mg PO Q8H PRN 07/09/20 08/06/20 History prochlorperazine maleate 10 mg PO Q6H PRN 07/09/20 08/06/20 History lorazepam 0.5 mg PO Q8 PRN #30 tab 07/16/20 08/06/20 Rx morphine 15 mg PO Q12H #60 tab 07/16/20 08/06/20 Rx polyethylene glycol 3350 [Miralax] 17 g PO QID PRN 07/23/20 08/06/20 History sennosides-docusate sodium 1 tab PO BID PRN 07/23/20 08/06/20 History [Senokot-S] docusate sodium 100 mg PO BID PRN 07/29/20 08/06/20 History oxycodone 5 mg PO Q4H PRN 07/29/20 08/06/20 History Patient History Medical History Acute hypokalemia Bilateral leg pain Brain metastases Cancer related pain Chest pain Metastatic lung carcinoma Surgical History H/O bilateral mastectomy H/O craniotomy H/O: hysterectomy History of cholecystectomy Social History Smoking Status: Former smoker Tobacco Type: Cigarettes Second Hand Exposure: No; Hx Alcohol Use: No Hx Substance Use: No Preferred Language: Andorran Communication Ability: Effective Instant Printer Operator Required: No Beliefs That Will Affect Care: None marital status: Current Living Situation: Spouse How many Children do You have: 2 Other Information That Helps Us Care for You: No Feels Safe at Home: Yes Safety Concerns: Feels Safe At This Time Assistive Devices: Glasses Review of Systems Review of Systems: All systems reviewed & are unremarkable except as noted in HPI & below Physical Exam Constitutional: WD/WN, vitals as above well developed and well nourished Eyes: PERRL, conjunctivae normal, anicteric sclerae ENMT: external ear and nose normal, oropharynx normal Neck: trachea midline, no thyromegaly Respiratory: normal respiratory effort, lungs clear to auscultation Cardiovascular: RRR, no murmur, no edema Gastrointestinal (Abdomen): normal bowel sounds, soft, nontender, no hepatosplenomegaly Musculoskeletal: no cyanosis or clubbing, extremities motor strength 5/5 Skin: no rashes, warm and dry Neurologic: patellar DTR's 2+ bilat, sensation intact and PERRL, EOMI, acc ommodation nl, no face palsy, no dysarthria Psychiatric: A+Ox3, euthymic affect
[2020-08-07 09:42] LABS: Hemoglobin 10.4 g/dL (12.0-16.0); Immature Granulocytes # (auto) 0.01 K/uL (0.00-0.02); Immature Granulocytes % (auto) 0.3 %; Lymphocytes # (auto) 0.52 K/uL (1.2-3.4); Lymphocytes % (auto) 17.3 %; Mean Corpuscular Hemoglobin 29.6 pg (25-34); Mean Corpuscular Hgb Conc 33.5 g/dL (32-36); Mean Corpuscular Volume 88.3 fL (80-100); Mean Platelet Volume 9.3 fL (7.4-10.4); Monocytes # (auto) 0.13 K/uL (0.11-0.59); Monocytes % (auto) 4.3 %; Neutrophils # (auto) 2.35 K/uL (1.4-6.5); Neutrophils % (auto) 78.1 %; Platelet Count 235 K/uL (130-400); RDW Coefficient of Variation 14.2 % (11.5-14.5); RDW Standard Deviation 45.2 fL (36.4-46.3); Red Blood Count 3.51 M/uL (4.2-5.4); White Blood Count 3.01 K/uL (4.8-10.8)
[2020-08-07 10:24] LABS: BUN Creatinine Ratio 7.1 (10-20); Blood Urea Nitrogen 3 mg/dl (7-18); Calcium 8.8 mg/dl (8.5-10.1); Carbon Dioxide 24 mmol/L (21-32); Chloride 107 mmol/L (98-107); Creatinine Clr Calc Pharmacy 209.8 ml/min; Est GFR (African American) > 150.0; Glucose 122 mg/dl (70-99); Potassium 4.3 mmol/L (3.5-5.1); Sodium 138 mmol/L (136-145)
--- NOTE | 2020-08-07 13:07 | Neurology Consultation ---
Date of Consultation August 07, 2020 Assessment & Plan (1) Breakthrough seizure: 1. Keppra 1000 mg q 12 hours has been increased to 1500 mg q 12 hours 2. keppra level ordered and pending 3. no driving for 6 months from last seizure date, no heights, no bathing or swimming alone 4. seizure precautions Present on Admission?: Yes (2) Brain metastases: 1. MRI with new ring enhancing lesions 2. radiation oncology - consulted 3. defer to radiation oncology and medical oncology with steroid dosing 4. 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 on chemotherapy who is status post local radiation therapy to a solitary metastasis and then required resection because of resistant edema and who now has multiple new metastatic lesions with ring enhancement, surrounding edema and has had a breakthrough seizure having had a seizure as the initial presentation of her brain involvement back in May She is awake alert oriented in 3 spheres an excellent historian, quite tearful which is appropriate and has no cranial neuropathies or anything focal on examination despite the multiplicity of the lesions and the edema and really does not describe any significant headache She is been appropriately treated with Decadron and her Keppra which was added 1000 mg twice a day has now been raised to 1500 mg twice a day She is being seen by radiation oncology who is in the process of discussing her care with neurosurgery in [place] and with medical oncology and she is due to get another course of chemotherapy this week which appears to include a mixture of cytotoxic agents and immunomodulation I believe with a checkpoint inhibitor though the details of her regimen are certainly known to oncology and do not need to be reiterated here Neurology is going to see her in about 4 to 6 weeks by video and further management of the cerebral edema and radiation doses will obviously rest in the hands of radiation oncology/neurosurgery and medical oncology Julio C Ojeda MD History of Present Illness Reason for Consultation: possible breakthrough seizure Requesting Physician: Lilly Albright MD Attending Physician: Lilly Albright MD History of Present Illness Josi is a 45 year old female with PMH breast cancer and lung cancer with brain metastasis. She underwent stereotactic radiosurgery in May [address] Vail and Dr[address] Justice. She had significant vasogenic edema involving the right temporal lobe metastasis and underwent a right temporal craniotomy by Dr. Justice in June 2020. She was started on chemotherapy by Dr. Barillas oncology. She was admitted to the hospital due to a recent seizure at home. She had an MRI of the brain completed on 08/06/2020 which does reveal potential progression of disease. She is very upset today and crying. She remembers the seizure and how she was clinching her teeth and bit her tongue. no loss of bowel or bladder. She thought the CA was being treated by the chemotherapy and she is worried about the increase in steroids she was given because her chemo Dr told her it can reduce her resistance to infections. denies CP, SOB, abdominal pain, new bowel or bladder issues, +biting of tongue with seizure, feels weak Allergies Allergy/AdvReac Type Severity Reaction Status Date / Time Penicillins Allergy Intermediate Swelling Verified 08/06/20 21:16 Home Medications Medication Instructions Recorded Confirmed Type levetiracetam 1,000 mg PO BID 07/02/20 08/06/20 History dexamethasone 4 mg PO DIRECTED PRN 07/09/20 08/06/20 History folic acid 1 mg PO DAILY 07/09/20 08/06/20 History ondansetron 8 mg PO Q8H PRN 07/09/20 08/06/20 History prochlorperazine maleate 10 mg PO Q6H PRN 07/09/20 08/06/20 History lorazepam 0.5 mg PO Q8 PRN #30 tab 07/16/20 08/06/20 Rx morphine 15 mg PO Q12H #60 tab 07/16/20 08/06/20 Rx polyethylene glycol 3350 [Miralax] 17 g PO QID PRN 07/23/20 08/06/20 History sennosides-docusate sodium 1 tab PO BID PRN 07/23/20 08/06/20 History [Senokot-S] docusate sodium 100 mg PO BID PRN 07/29/20 08/06/20 History oxycodone 5 mg PO Q4H PRN 07/29/20 08/06/20 History Patient History Medical History Acute hypokalemia Bilateral leg pain Brain metastases Cancer related pain Chest pain Metastatic lung carcinoma Surgical History H/O bilateral mastectomy H/O craniotomy H/O: hysterectomy History of cholecystectomy Social History Smoking Status: Former smoker Tobacco Type: Cigarettes Second Hand Exposure: No; Hx Alcohol Use: No Hx Substance Use: No Preferred Language: Welsh Communication Ability: Effective 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 Beliefs That Will Affect Care: None marital status: Current Living Situation: Spouse How many Children do You have: 2 Other Information That Helps Us Care for You: No Feels Safe at Home: Yes Safety Concerns: Feels Safe At This Time Assistive Devices: Glasses Review of Systems Review of Systems: All systems reviewed & are unremarkable except as noted in HPI & below Physical Exam Physical Exam: Physical Exam: Constitutional: appearance nourished, healthy and normal Ears, Nose, Mouth and Throat: mucous membranes moist, no injection and skin normal, eyes normal Cardiovascular: normal S-1 and S-2 and regular rate and rhythm Respiratory: course breath sounds Musculoskeletal: no peripheral edema and good distal pulses Skin: no stigmata of neurocutaneous disease noted and normal and intact Eyes: extraocular muscles intact (EOMI) and pupils equal, round and reactive to light (PERRL) NEUROLOGIC EXAMINATION: Mental status: Alert and interactive Oriented to full date and location Oriented to person Speech fluent with no evidence of aphasia Cranial Nerves facial symmetry Sensory: intact to light touch Coordination: finger to nose intact Gait/Stance: Posture normal. Gait not assess . Motor: Negative for pronator drift of out stretched arms with eyes closed. Strength: Normal - hand rail washer biceps triceps 4+/5 bilaterally, hip flex plantar flex ext 4+/5 (no good effort) Results & Data ([facility]) Vital Signs (Past 12 Hours) Vital Signs Temp Pulse Pulse Resp BP BP Pulse Ox 08/07/20 11:05 36.4 C L 69 18 92/58 L 94 08/07/20 09:20 75 08/07/20 07:38 36.5 C 90 20 94/61 L 95 08/07/20 02:50 36.7 C 82 20 110/72 98 08/07/20 02:06 87 22 106/69 93 Laboratory Results Abnormal lab results 08/06/20 08/06/20 08/06/20 Range/Units 18:59 18:59 19:32 WBC 4.44 L (4.8-10.8) K/uL RBC 3.96 L (4.2-5.4) M/uL Hgb 11.6 L (12.0-16.0) g/dL Hct 34.4 L (37-47) % Lymph # (Auto) (1.2-3.4) K/uL [place] # (Auto) 0.69 H (0.11-0.59) K/uL Potassium 3.2 L (3.5-5.1) mmol/L Anion Gap 12.0 H (3-11) BUN 2 L (7-18) mg/dl Creatinine 0.45 L (0.6-1.2) mg/dl BUN/Creatinine Ratio 4.7 L (10-20) Glucose (70-99) mg/dl Hemoglobin A1c (4.5-5.6) % Alkaline Phosphatase 158 H (45-117) U/L Ammonia < 10.0 L (11-32) umol/L Albumin 2.8 L (3.4-5.0) gm/dl Globulin 4.3 H (2.5-4.0) gm/dl Albumin/Globulin Ratio 0.7 L (0.9-2) Urine Ketones (Negative) 08/06/20 08/07/20 08/07/20 Range/Units 19:32 02:45 09:17 WBC 3.01 L (4.8-10.8) K/uL RBC 3.51 L (4.2-5.4) M/uL Hgb 10.4 L (12.0-16.0) g/dL Hct 31.0 L (37-47) % Lymph # (Auto) 0.52 L (1.2-3.4) K/uL [place] # (Auto) (0.11-0.59) K/uL Potassium (3.5-5.1) mmol/L Anion Gap (3-11) BUN (7-18) mg/dl Creatinine (0.6-1.2) mg/dl BUN/Creatinine Ratio (10-20) Glucose (70-99) mg/dl Hemoglobin A1c 5.7 H (4.5-5.6) % Alkaline Phosphatase (45-117) U/L Ammonia (11-32) umol/L Albumin (3.4-5.0) gm/dl Globulin (2.5-4.0) gm/dl Albumin/Globulin Ratio (0.9-2) Urine Ketones 3+ H (Negative) 08/07/20 Range/Units 09:17 WBC (4.8-10.8) K/uL RBC (4.2-5.4) M/uL Hgb (12.0-16.0) g/dL Hct (37-47) % Lymph # (Auto) (1.2-3.4) K/uL [place] # (Auto) (0.11-0.59) K/uL Potassium (3.5-5.1) mmol/L Anion Gap (3-11) BUN 3 L (7-18) mg/dl Creatinine 0.37 L (0.6-1.2) mg/dl BUN/Creatinine Ratio 7.1 L (10-20) Glucose 122 H (70-99) mg/dl Hemoglobin A1c (4.5-5.6) % Alkaline Phosphatase (45-117) U/L Ammonia (11-32) umol/L Albumin (3.4-5.0) gm/dl Globulin (2.5-4.0) gm/dl Albumin/Globulin Ratio (0.9-2) Urine Ketones (Negative) Diagnostic Findings MRI brain- Postsurgical changes of a right-sided craniotomy with a small postsurgical fluid collection subjacent to craniotomy site There are at least 8 enhancing parenchymal lesions many associated with vasogenic edema, several of which are cystic with rim enhancement. The findings are viewed as highly suspic ious for multifocal intracranial metastatic disease. CXR- Persistent right midlung zone pulmonary mass currently measuring 5.5 cm. This remains relatively similar to the preceding study.
--- NOTE | 2020-08-07 15:36 | Radiation Oncology Progress Nt ---
Date of Service August 07, 2020 Assessment & Plan (1) Brain metastases: Update from consultation note: I have spoken with Dr. Vail from radiation oncology at [facility]. Dr. Vail is in agreement to see the patient back in the outpatient setting. Please have the patient scheduled to be seen at the neuro-oncology clinic at [facility] in [place], [place]. Please also have a copy of the MRI given to the patient to bring to the appointment when she is discharged from the hospital. No further need for inpatient radiation oncology services. Patient may be discharged as per primary care team and neurology. Please call us with any further questions or concerns. Admission and Anticipated Discharge Date Admission Date: August 06, 2020
--- NOTE | 2020-08-07 15:51 | Hospitalist Progress Note ---
Date of Service August 07, 2020 Assessment & Plan (1) Intracranial pressure increased: Seizure-like episode H/O non-small cell lung carcinoma with brain metastasis status post stereotactic radiosurgery/brain tumor resection ongoing chemotherapy Vasogenic edema involving the right temporal lobe metastasis and underwent a right temporal craniotomy by Dr. Justice in June 2020 Acute hypokalemia - resolved Cancer-related pain Hyperglycemia H/O breast cancer bilateral mastectomy history BRCA gene mutation positivity H/O Depression Appreciate neurology and radiation oncology input. Keppra has been increased to 1500 mg twice daily. Keppra levels are pending at the moment. Neurology recommended no driving for at least 6 months. Continue with seizures precautions. Currently on dexamethasone 4 mg Q6H; radiation oncology recommended to decrease it down to 4 mg twice daily until the patient follows up with radiation oncology as an outpatient. Patient is to develop symptoms again, Decadron 4 mg 3-4 times a day. MRI of the brain revealed new ring-enhancing lesions. Radiation oncology is on board. Patient to follow-up with radiation oncology as an outpatient. Continue morphine for pain control. Admission and Anticipated Discharge Date Admission Date: August 06, 2020 Subjective Doing okay this morning. No further episodes of seizures. Reports headache is improved. Does report neck discomfort. Feeling nauseous but no vomiting. Denies any chest pain at the moment or any shortness of breath. Does report feeling dizzy. Rest of the review of systems negative. Review of Systems Review of Systems: All systems reviewed & are unremarkable except as noted in HPI & below Physical Exam Physical Exam: General: A&Ox3 HENT: NCAT, MMM, EOMI Eyes: PERRLA Neck: Supple, normal range of motion CVS: normal rate and rhythm Resp: b/l good breath sounds Abdomen: Soft, non-tender Extremities: No c/c/e Neuro: face symmetric, strength grossly equal, no focal deficit Skin: warm and dr MARTHA: no joint swelling/erythema Results & Data Results & Data ([facility]) Vital Signs (Past 12 Hours) Vital Signs Temp Pulse Pulse Resp BP Pulse Ox 08/07/20 14:44 36.7 C 79 18 100/63 97 08/07/20 11:05 36.4 C L 69 18 92/58 L 94 08/07/20 09:20 75 08/07/20 07:38 36.5 C 90 20 94/61 L 95
[2020-08-07] MEDS ORDERED: CALCIUM CARBONATE 500 MG CHEWABLE TAB PO PRN (22:36)
[2020-08-08] MEDS: oxyCODONE HCL IR 5 MG TAB (IMMEDIATE RELEASE) PO PRN ×5 (04:03→22:15)
--- NOTE | 2020-08-08 05:31 | Electrocardiogram Report ---
Test Reason : Blood Pressure : / mmHG Vent. Rate : 095 BPM Atrial Rate : 095 BPM P-R Int : 114 ms QRS Dur : 074 ms QT Int : 352 ms P-R-T Axes : 045 085 066 degrees QTc Int : 442 ms Poor data quality, interpretation may be adversely affected Normal sinus rhythm Normal ECG When compared with ECG of 04-AUG-2020 19:49, No significant change was found Confirmed by Dillan Mckinney ([id number]) on 08/08/2020 5:31:11 AM Referred By: REFERRED SELF Confirmed By:Dillan Mckinney
[2020-08-08] MEDS: dexAMETHasone 4 MG in SYRINGE 0 ML IV SCH ×2 (06:16→18:07)
[2020-08-08] MEDS: HEPARIN 100 UNIT/ML 5ML FLUSH FLUSH PRN ×2 (06:16→17:14)
[2020-08-08] MEDS: levETIRAcetam 500 MG TAB PO SCH ×2 (08:04→21:21)
[2020-08-08] MEDS: MoRPHine SULFATE CR 15 MG TABCR PO SCH ×2 (08:04→21:21)
[2020-08-08] MEDS: FOLIC ACID 1 MG TAB PO SCH (08:04)
--- NOTE | 2020-08-08 12:14 | Hospitalist Progress Note ---
Date of Service August 08, 2020 Assessment & Plan (1) Intracranial pressure increased: Seizure-like episode H/O non-small cell lung carcinoma with brain metastasis status post stereotactic radiosurgery/brain tumor resection ongoing chemotherapy Vasogenic edema involving the right temporal lobe metastasis and underwent a right temporal craniotomy by Dr. Justice in June 2020 Acute hypokalemia - resolved Cancer-related pain Hyperglycemia H/O breast cancer bilateral mastectomy history BRCA gene mutation positivity H/O Depression Appreciate neurology and radiation oncology input. Continue increased dose of Keppra 1500 mg twice daily. Keppra level still pending at the moment. Neurology recommended no driving for at least 6 months. Continue with seizures precautions. Currently on dexamethasone 4 mg Q6H; radiation oncology recommended to decrease it down to 4 mg twice daily until the patient follows up with radiation oncology as an outpatient. Patient is to develop symptoms again, Decadron 4 mg 3-4 times a day. Dexamethasone reduced to 4 mg twice daily for now. MRI of the brain revealed new ring-enhancing lesions. Radiation oncology is on board. Radiation oncologist Dr. Miller spoke with Dr Vail at [facility] who stated that they will see patient outpatient as well as with neuro oncology clinic and would like patient to be given a copy of her MRI to bring to the appointment when discharged from the hospital Admission and Anticipated Discharge Date Admission Date: August 06, 2020 Subjective Patient seen and examined No further episodes of seizures Headache improved but reports feeling slightly dizzy. Denies blurry vision Reports occasional nausea but no vomiting Denies chest pain, shortness of breath, cough Physical Exam Constitutional: + well hydrated; no acute distress Eyes: PERRL, conjunctivae normal, anicteric sclerae ENMT: external ear and nose normal, oropharynx normal Respiratory: normal respiratory effort, lungs clear to auscultation Cardiovascular: Rate/Rhythm: regular rate and regular rhythm Heart Sounds: normal S1 and normal S2 Gastrointestinal (Abdomen): normal bowel sounds, soft, nontender, no hepatosplenomegaly Musculoskeletal: No pedal edema Neurologic: PERRL, EOMI, accommodation nl, no face palsy, no dysarthria Psychiatric: Orientation: alert and oriented x 3 Affect: + flat affect Results & Data Results & Data ([facility]) Vital Signs (Past 12 Hours) Vital Signs Temp Pulse Pulse Resp BP Pulse Ox 08/08/20 12:08 36.6 C 65 18 92/65 L 96 08/08/20 08:00 85 08/08/20 07:49 36.5 C 59 L 18 92/59 L 08/08/20 03:53 36.6 C 65 18 89/58 L 94 08/08/20 00:50 67
[2020-08-09] MEDS: oxyCODONE HCL IR 5 MG TAB (IMMEDIATE RELEASE) PO PRN ×3 (02:36→13:53)
[2020-08-09] MEDS: HEPARIN 100 UNIT/ML 5ML FLUSH FLUSH PRN ×3 (05:20→17:00)
[2020-08-09] MEDS: dexAMETHasone 4 MG in SYRINGE 0 ML IV SCH (05:39)
[2020-08-09 06:19] LABS: Hemoglobin 10.3 g/dL (12.0-16.0); Mean Corpuscular Hemoglobin 29.1 pg (25-34); Mean Corpuscular Hgb Conc 33.2 g/dL (32-36); Mean Corpuscular Volume 87.6 fL (80-100); Mean Platelet Volume 9.4 fL (7.4-10.4); Platelet Count 305 K/uL (130-400); RDW Coefficient of Variation 14.5 % (11.5-14.5); RDW Standard Deviation 46.3 fL (36.4-46.3); Red Blood Count 3.54 M/uL (4.2-5.4); White Blood Count 4.77 K/uL (4.8-10.8)
[2020-08-09 06:44] LABS: BUN Creatinine Ratio 10.3 (10-20); Calcium 8.3 mg/dl (8.5-10.1); Creatinine Clr Calc Pharmacy 184.2 ml/min; Est GFR (African American) 144.5; Est GFR (Non-African American) 124.7; Potassium 3.7 mmol/L (3.5-5.1)
[2020-08-09] MEDS: levETIRAcetam 500 MG TAB PO SCH (08:24)
[2020-08-09] MEDS: MoRPHine SULFATE CR 15 MG TABCR PO SCH (08:24)
[2020-08-09] MEDS: FOLIC ACID 1 MG TAB PO SCH (08:24)
--- NOTE | 2020-08-09 12:04 | Discharge Summary ---
Date of Service August 09, 2020 Admission HPI Per Admitting Provider History obtained from patient and records. Medical history significant for NSCLC with brain mets status post stereotactic radiosurgery, brain tumor resection (05/2020), history seizures, history TIA, breast cancer status post mastectomy, history BRCA gene mutation positivity, past tobacco abuse. Recent confinement last week for chest pain and depression. Patient felt tired and shaky today. Later she felt fuzzy, eyes going crazy up and down as per patient. Achy headache symptoms. Patient bit her tongue involuntarily. Patient worried about recurrent seizures. Compliant with home medications. Patient denies chest pain, S OB. Patient brought to the ER for evaluation. Decadron given for brain mets findings on MRI. Medical History as above Preop brain MRI 04/2020 Multiple enhancing lesions are noted in the supratentorial and infratentorial brain associated with perilesional edema. There are at least 6 lesions identified, detailed below. No hemorrhagic component associated with these lesions. There is no significant midline shift or hydrocephalus. Perfusion is non-diagnostic could be related to timing of contrast. 1. 1.6 x 1.5 cm enhancing lesion centered in the posterior right frontal lobe with significant surrounding vasogenic edema, series 22 image 103. Marked restricted diffusion is associated with this lesion, suggestive of high cellularity. 2. 0.8 mm enhancing lesion centered in the right inferior frontal lobe with surrounding vasogenic edema, series 22 image 105. 3. A 4 mm enhancing nodule is noted involving the anterior aspect of the left insular region, series 22, image 91. 4. 4.4 mm enhancing nodule is noted in the right putamen, series 22, image 78. 5. 1.4 x 1.4 cm enhancing lesion with 6 6 component centered in the right occipital lobe, series 22 image 48. 6. 6 mm enhancing nodule centered in the cerebellar vermis, series 22, image 34. The underlying brain volume is within normal limits for age. Flow voids are preserved in the proximal intracranial vessels.The paranasal sinuses and mastoid air cells are clear. Calvarium and visualized craniofacial soft tissues are unremarkable. Post SRS/Postop Brain MRI 06/06/2020 Expected interval postop changes right parietal craniotomy for resection of right frontal lobe lesion with mild pneumocephalus and pulse of blood products. Vasogenic edema and mass-effect are stable. Other supratentorial and infraten torial metastatic lesions are without significant change from recent prior examination. PET scan June 2020 showed metabolically active right upper lobe pulmonary mass with extensive lymphadenopathy in the neck chest and abdomen and bilateral adrenal mets. 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 Admission Exam Per Admitting Provider GENERAL: uncomfortable, anxious, occasionally tearful, no respiratory distress SKIN: Pallor , warm HEENT: Bespectacled, pale palpebral conjunctivae, no ptosis, dry buccal mucosa, tongue contusion NECK : Supple, no tenderness CHEST : Decreased breath sounds, no tenderness HEART : RRR, no obvious murmurs ABDOMEN: Some distention, nontender EXTREMITIES : No LE swelling/tenderness, no other conspicuous deformities noted NEUROLOGIC : Coherent, no facial asymmetry, no other gross focality Principal Diagnosis Seizure like episode Brain metastases Discharge Exam Constitutional + well hydrated; no acute distress Eyes PERRL, conjunctivae normal, anicteric sclerae ENMT external ear and nose normal, oropharynx normal Respiratory normal respiratory effort, lungs clear to auscultation Cardiovascular Rate/Rhythm: regular rate and regular rhythm Heart Sounds: normal S1 and normal S2 Gastrointestinal (Abdomen) normal bowel sounds, soft, nontender, no hepatosplenomegaly Musculoskeletal no cyanosis or clubbing, extremities motor strength 5/5 Neurologic PERRL, EOMI, accommodation nl, no face palsy, no dysarthria Psychiatric Orientation: alert and oriented x 3 crying spells Discharge Data Allergies Allergy/AdvReac Type Severity Reaction Status Date / Time Penicillins Allergy Intermediate Swelling Verified 08/06/20 21:16 Consultations 08/06/20 21:39 ED Decision to Admit Stat 08/07/20 02:50 Consult Neurology Routine Consult Radiation Oncology Routine Ordered Studies 08/06/20 18:13 MR brain wo/w con Stat Sagittal T1, axial diffusion, proton density and T2 weighted axial, coronal FLAIR, and pre and post axial T1-weighted images were acquired. These were supplemented with post gadolinium coronal T1 weighted images. There are postsurgical changes of a right sided craniotomy. There is a 4 mm fluid collection subjacent to the craniotomy site. There is an 11 mm cystic lesion within the right medial occipital lobe with mild surrounding vasogenic edema. There is a 6.5 mm cystic lesion within the right anterior medial cerebellar hemisphere. There is mild hemosiderin in the right parietal lobes adjacent the craniotomy site, likely related to prior surgery. There is mild vasogenic edema subjacent to the craniotomy site. There is a 3 mm cystic lesion within the left frontal lobe. Axial diffusion-weighted images reveal no evidence of acute or subacute infarction. There is no evidence of ventricular dilatation. Proton density T2-weighted and FLAIR images reveal areas of vasogenic edema adjacent to the above-mentioned cystic lesions. Additional areas of vasogenic edema are also evident. There are no abnormal flow voids. The right occipital lesion demonstrates rim enhancement. The cerebellar lesion demonstrates rim enhancement. There is a 6 mm enhancing lesion involving the left frontal vertex. There is minor parenchymal enhancement subjacent to the craniotomy site. There is dural enhancement subjacent the craniotomy site. There is a 2 mm focus of enhancement within the right frontal lobe. There is an 8 mm rim-enhancing lesion within the left parasagittal posterior parietal lobe. 2 additional subtle enhancing lesions are present within the left frontal lobe. IMPRESSION: 1. Postsurgical changes of a right-sided craniotomy with a small postsurgical fluid collection subjacent to craniotomy site 2. There are at least 8 enhancing parenchymal lesions many associated with vasogenic edema, several of which are cystic with rim enhancement. The findings are viewed as highly suspicious for multifocal intracranial metastatic disease. Hospital Course (1) Intracranial pressure increased: Seizure-like episode H/O non-small cell lung carcinoma with brain metastasis status post stereotactic radiosurgery/brain tumor resection ongoing chemotherapy Vasogenic edema involving the right temporal lobe metastasis and underwent a right temporal craniotomy by Dr. Justice in June 2020 Acute hypokalemia - resolved Cancer-related pain Hyperglycemia H/O breast cancer bilateral mastectomy history BRCA gene mutation positivity H/O Depression MRI showed at least 8 enhancing parenchymal lesions associated with vasogenic edema several of which are cystic with rim enhancement suspicious for multifocal metastasis. Patient was evaluated by neurology and radiation oncology while inpatient Her Keppra was increased to 1500 mg twice daily Increased dose of Keppra 1500 mg twice daily. Neurology recommended no driving for at least 6 months. Patient advised not to drive until cleared by neurology. She was treated with dexamethasone 4 mg every 6 hours and this was decreased to 4 mg twice daily. I spoke with Dr. Miller at oncologist office today. Patient is to follow-up with them tomorrow for her chemo and follow-up Radiation oncologist Dr. Miller spoke with Dr Vail at [facility] who stated that they will see patient outpatient as well as with neurosurgery clinic Patient reports that she has an appointment with neurosurgery [facility] on Thursday. Advised to continue taking the dexamethasone 4 mg twice daily until Thursday where neurosurgery will give further recommendations/adjustments/weaning down as needed Offered patient psychiatry/psychology support and home health services to aid with her depression/social support during this trying period. However, she declined and stated she can ask for one when she feels she needs it that she has good support at home at the moment Total Time Total Time Spent Total Time Spent (In Minutes): 60 Total Time Includes: Examination of the Patient, Discharge Planning, Medication Reconciliation and Communication With Other Providers Discharge Plan Discharge Items Patient Disposition: Home - Self-Care Reason For Visit: INCREASED ICP, PRIVATE RM IF AVAIL, PER PX REQ Discharge Diagnosis: Seizure like episode Brain metastases Condition on Discharge: Fair Activity: Resume your previous activity Driving/Machine Use: NO DRIVING UNTIL CLEARED BY NEUROLOGY Non-emergency contact: Primary Care Provider, Surgeon, Neurologist and Oncologist Call non-emergency contact if: you have any medication questions Follow-up/Referrals: Jasiel Fritz DO [Primary Care Provider] - (Date & Time 08/10/2020 10:30 AM Provider NICHO Rich Department Hematology/Oncology [facility] Date & Time 08/14/2020 2:00 PM Provider Jasiel Fritz DO Department Family Practice [facility] ) Diet: Heart Healthy Addtl Attending Provider Instructions: Mrs Copeland. You came to the hospital due to feeling weaker, dizzy and some seizure like episodes. You were evaluated. MRI showed lesions in your brain suggestive of metastatic disease. You were evaluated by Neurology and Radiation oncologist. Your keppra was increased to 1500mg twice daily You were treated on dexamethasone. Please continue taking dexamethasone 4mg twice daily until follow up with your Neurosurgeon on Thursday who will give further dosing recommendations and plans on weaning if needed. Please follow up with Oncologist and Primary doctor PLEASE DO NOT DRIVE UNTIL CLEARED BY NEUROLOGIST Follow up with neurology in 4-6 weeks. It was a pleasure taking care of you. Pending Studies at Discharge: No Stand-Alone Forms: My [facility], Smoking Cessation Medications and DC Order Prescriptions: New dexamethasone 4 mg tablet 4 mg PO BID Qty: 14 RF: 0 Continued folic acid 1 mg Tablet 1 mg PO DAILY RF: 0 ondansetron 8 mg Tablet,Disintegrating 8 mg PO Q8H PRN (Reason: Nausea) RF: 0 prochlorperazine maleate 10 mg Tablet 10 mg PO Q6H PRN (Reason: Nausea) RF: 0 lorazepam 0.5 mg Tablet 0.5 mg PO Q8 PRN (Reason: Anxiety) Qty: 30 RF: 0 morphine 15 mg Tablet Extended Release 15 mg PO Q12H Qty: 60 RF: 0 polyethylene glycol 3350 [Miralax] 17 gram powder in packet 17 g PO QID PRN (Reason: Constipation) RF: 0 sennosides-docusate sodium [Senokot-S] 8.6-50 mg tablet 1 tab PO BID PRN (Reason: Constipation) RF: 0 docusate sodium 100 mg capsule 100 mg PO BID PRN (Reason: Constipation) RF: 0 oxycodone 5 mg tablet 5 mg PO Q4H PRN (Reason: Pain, Severe) RF: 0 Changed levetiracetam 500 mg tablet 1,500 mg PO BID 30 Days Qty: 180 RF: 0 Discontinued dexamethasone 4 mg Tablet 4 mg PO DIRECTED PRN (Reason: PRIOR TO CHEMO) RF: 0 Discharge Orders: Discharge Order (Routine); Ordered 08/09/20 Ordered By: Emilia Portillo Admission Data Admit Date/Time: 08/06/20 23:15 Attending Provider: Emilia Portillo I. Admit Provider: George Us Primary Care Provider: Jasiel Fritz Other Providers: George Us ; Sofia Quintana ; Julio C Ojeda ; Sofia Flynn ; Heath Bridges ; Talisha Roblero ; Jane Miller ; Napoleon Wright ; Umair Gonzales ; Natalee,Carr J. Other Interventions: Discharge Summary Assessment (RN) Last Done: 08/09/20 17:56
== END 2020-08-09 18:12 | disposition home or self-care (01) | DRG 54 ==
LOC: ED 16:06 → 2W 23:15 → SUATTDRO 23:15 → 2W 08-07 02:06

== ENCOUNTER 2020-08-16 09:01 | Inpatient (IN) ==
[2020-08-16] MEDS ORDERED: SODIUM CHLORIDE 0.9% 1000ML 1,000 ML IV ONE ×3 (09:34→14:41)
--- NOTE | 2020-08-16 09:49 | Emergency Department Note ---
Impression & Plan Weakness, Hypokalemia, Acute dehydration, Acute hypotension ED Provider Note NAME: YNES MCCARTY AGE: 45 SEX: F : 1975 ARRIVES VIA: Walk-In INFORMANT: Patient, ED PROVIDER(S): Alexy Asencio DO CHIEF COMPLAINT: Weakness HPI: The patient is a 45-year-old female who presented to the emergency department for evaluation of weakness. The patient has a history of metastatic lung cancer which is gone to her brain. She has multiple metastatic lesions in her brain. She was taking Decadron but this medication was stopped on Thursday of this week. The patient also restarted chemotherapy last Thursday. She denies having any fever. She does have a cough but she states this is baseline for her given her history of lung cancer. She states that she has been compliant with her medications but has a very hard time taking her medications. She has significant fullness in her abdomen as well as decreased appetite and nausea. S he denies having any recent falls. She does complain of some epigastric and left-sided chest pain which is a new symptom for her. She states this is not related to exertion. She does feel short of breath compared to baseline. She did not see her family doctor today. She has been in our emergency department multiple times for similar complaints. Apparently she has been found to have hypokalemia which is very significant and causes her symptoms when it occurs. The patient states at rest she feels much better. She does not normally have supplemental oxygen. ROS: See above HPI for pertinent positives & negatives. A total of 10 systems reviewed and were otherwise negative. PAST MEDICAL HISTORY: See Below PAST SURGICAL HISTORY: See Below FAMILY HISTORY: See Below SOCIAL HISTORY: See Below HOME MEDICATIONS: See Below ALLERGIES: See Below VITALS: See Below PHYSICAL EXAMINATION: GENERAL: The patient is awake and alert. She is somewhat listless appearing. EYES: The conjunctivae are clear. The pupils are round and reactive. EARS, NOSE, MOUTH AND THROAT: The nose is without any evidence of any deformity. Mucous membranes are dry. NECK: The neck is nontender and supple. RESPIRATORY: Normal respiratory effort was noted. Diminished breath sounds are noted in the bases. There was no significant tachypnea or conversational dyspnea. CARDIOVASCULAR: Tachycardic rate with regular heart sounds were noted. There is no definite murmur. GASTROINTESTINAL: The abdomen is soft. Abdomen is nontender. MUSCULOSKELETAL/EXTREMITIES: There is no evidence of gross deformity full range of motion is noted in the hips and shoulders. SKIN: Skin was warm and dry. Trace pedal edema was noted bilaterally. NEUROLOGIC: Patient is awake alert and oriented x3 strength is symmetric patellar reflexes are 2+ bilaterally MEDICAL DECISION MAKING: The patient is a 45-year-old female who presented to the emergency department for an evaluation of weakness. The patient has a history of metastatic lung cancer with multiple metastasis to the brain. She has had whole brain radiation as well as chemotherapy. The patient was recently treated with chemotherapy last week. Since that time she has been very weak and unable to eat or drink. The patient was found to have hypotension and tachycardia. She responded well to IV fluids. On reevaluation her vital signs significantly improved. She was also treated with IV potassium replacement. I discussed the patient's laboratory and radiographic studies with her. Because of her symptoms I also discussed her case with the on-call [facility] group. They have agreed to evaluate the patient in the emergency department for further management and disposition. Triage Nursing notes reviewed. Prior medical records reviewed Vital Signs: reviewed and remarkable for hypotension and tachycardia. Differential diagnosis: Infection, dehydration, metabolic abnormality, hypo/hyperglycemia, electrolyte disturbance, anemia, hypoxia, cardiac sources, intracerebral event, toxicologic, neurologic, as well as other pathologies. ER treatment provided: See below Diagnostics interpreted by me: ECG: EKG was obtained in the emergency department. My interpretation is sinus rhythm at 100 bpm. There was no ectopy. There is no acute ST segment abnormalities noted. This was compared to a tracing from August 142020. No significant changes were noted. Cardiac Monitoring: An order was placed for continuous cardiac monitoring. The monitor shows a rate of 89 bpm with sinus rhythm. Laboratory studies: As stated above and show below. Imaging studies: See below Consultation(s): 1350: I discussed this case with Uma who is on-call for the [facility] group. They will evaluate the patient in the emergency department Past Med/Surg History Medical History Acute hypokalemia Bilateral leg pain Brain metastases Cancer related pain Chest pain Metastatic lung carcinoma Surgical History H/O bilateral mastectomy H/O craniotomy H/O: hysterectomy History of cholecystectomy Social History Smoking Status: Former smoker Tobacco Type: Cigarettes Second Hand Exposure: No; Hx Alcohol Use: No Hx Substance Use: No Preferred Language: Spanish Communication Ability: Effective Log Deckman Required: No Beliefs That Will Affect Care: None marital status: Current Living Situation: Spouse How many Children do You have: 2 Feels Safe at Home: Yes Assistive Devices: None Allergies Allergies Allergy/AdvReac Type Severity Reaction Status Date / Time Penicillins Allergy Intermediate Swelling Verified 08/16/20 10:01 Home Meds Home Medications Medication Instructions Recorded Confirmed folic acid 1 mg PO QAM 07/09/20 08/16/20 ondansetron 8 mg PO Q8H PRN 07/09/20 08/16/20 prochlorperazine maleate 10 mg PO Q6H PRN 07/09/20 08/16/20 polyethylene glycol 3350 [Miralax] 17 g PO QID PRN 07/23/20 08/16/20 sennosides-docusate sodium 1 tab PO BID PRN 07/23/20 08/16/20 [Senokot-S] docusate sodium 100 mg PO BID PRN 07/29/20 08/16/20 oxycodone 5 mg PO Q6H PRN 07/29/20 08/16/20 lorazepam 0.5 mg PO Q8H PRN 08/12/20 08/16/20 levetiracetam 1,500 mg PO BID 08/16/20 08/16/20 Previous Rx's Medication Instructions Recorded morphine 15 mg PO Q12H #60 tab 07/16/20 lorazepam [Ativan] 1 mg SUBLINGUAL TID PRN #30 tab 08/12/20 potassium chloride 20 meq PO DAILY #1200 ml 08/14/20 Results & Data (ED) Vital Signs Vital Signs - 24 hr 08/16/20 09:02 08/16/20 09:33 08/16/20 09:35 Temperature 36.0 C L Temperature Source Temporal Artery Scan Pulse Rate 130 H 88 Pulse Rate from SpO2 Sensor Respiratory Rate 20 14 20 Respiratory Effort / Characteristics Non-Labored Spontaneous Respiratory Depth Normal Blood Pressure 95/69 L 108/76 Blood Pressure Mean 77 86 Pulse Oximetry 99 96 Oxygen Delivery Method Room Air Sepsis Recent Fever Within 48 Hours No Sepsis New/Unexplained Change in Mental Status N/A Sepsis Action Taken by Nursing No Action Required 08/16/20 10:00 08/16/20 10:05 08/16/20 10:30 Temperature Temperature Source Pulse Rate 99 H 92 H Pulse Rate from SpO2 Sensor Respiratory Rate 18 20 16 Respiratory Effort / Characteristics Non-Labored Spontaneous Respiratory Depth Blood Pressure 114/76 90/71 L Blood Pressure Mean 88 77 Pulse Oximetry 96 98 Oxygen Delivery Method Room Air Sepsis Recent Fever Within 48 Hours Sepsis New/Unexplained Change in Mental Status Sepsis Action Taken by Nursing 08/16/20 11:00 08/16/20 11:30 08/16/20 12:06 Temperature Temperature Source Pulse Rate 82 82 Pulse Rate from SpO2 Sensor 78 82 Respiratory Rate 14 14 Respiratory Effort / Characteristics Respiratory Depth Blood Pressure 105/68 117/72 Blood Pressure Mean 80 87 Pulse Oximetry 95 100 98 Oxygen Delivery Method Room Air Sepsis Recent Fever Within 48 Hours Sepsis New/Unexplained Change in Mental Status Sepsis Action Taken by Halfway Medications Current Medication List: was personally reviewed by me Laboratory Data Attestation: I reviewed the patient's lab results. Result diagrams: 08/16/20 10:07 08/16/20 10:07 Lab Results 08/16/20 08/16/20 08/16/20 Range/Units 10:07 10:07 10:07 WBC (4.8-10.8) K/uL RBC (4.2-5.4) M/uL Hgb (12.0-16.0) g/dL Hct (37-47) % MCV (80-100) fL MCH (25-34) pg MCHC (32-36) g/dL RDW Std Deviation (36.4-46.3) fL RDW Coeff of Suri (11.5-14.5) % Plt Count (130-400) K/uL MPV (7.4-10.4) fL Immature Gran % (Auto) % Neut % (Auto) % Lymph % (Auto) % Mchenry % (Auto) % Eos % (Auto) % Baso % (Auto) % Neut # (Auto) (1.4-6.5) K/uL Lymph # (Auto) (1.2-3.4) K/uL Mchenry # (Auto) (0.11-0.59) K/uL Eos # (Auto) (0-0.5) K/uL Baso # (Auto) (0-0.2) K/uL Immature Gran # (Auto) (0.00-0.02) K/uL ESR 48 H (0-21) mm/hr PT (9.0-12.0) Seconds INR (0.9-1.1) APTT (21.0-31.0) Seconds PTT Ratio Sodium 133 L (136-145) mmol/L Potassium 3.0 L (3.5-5.1) mmol/L Chloride 100 (98-107) mmol/L Carbon Dioxide 27 (21-32) mmol/L Anion Gap 6.0 (3-11) BUN 6 L (7-18) mg/dl Creatinine 0.50 L (0.6-1.2) mg/dl Est Cr Clr Drug Dosing Not Reportable Est GFR ( Amer) 136.4 Est GFR (Non-Af Amer) 117.7 BUN/Creatinine Ratio 12.8 (10-20) Glucose 92 (70-99) mg/dl Lactate (0.4-2.0) mmol/L Calcium 9.0 (8.5-10.1) mg/dl Magnesium 1.8 (1.8-2.4) mg/dl Total Bilirubin 1.4 H (0.2-1) mg/dl AST 57 H (15-37) U/L ALT 132 H (12-78) U/L Alkaline Phosphatase 150 H (45-117) U/L Troponin I < 0.015 (0-0.045) ng/ml C-Reactive Protein 3.64 H (0-0.29) mg/dl Total Protein 7.4 (6.4-8.2) gm/dl Albumin 3.3 L (3.4-5.0) gm/dl Globulin 4.1 H (2.5-4.0) gm/dl Albumin/Globulin Ratio 0.8 L (0.9-2) Procalcitonin (0-0.5) ng/ml Random Cortisol 17.80 mcg/dl Urine Color Urine Appearance (Clear) Urine pH (4.5-7.5) Ur Specific Wrights (1.000-1.030) Urine Protein (Negative) Urine Glucose (UA) (Negative) Urine Ketones (Negative) Urine Blood (Negative) Urine Nitrite (Negative) Urine Bilirubin (Negative) Urine Urobilinogen (Negative) Ur Leukocyte Esterase (Negative) Urine WBC (Auto) (0-5) /hpf Urine RBC (Auto) (0-4) /hpf U Hyaline Cast (Auto) (0-5) /lpf U Epithel Cells (Auto) (0-5) /lpf Urine Bacteria (Auto) (Negative) Ur Renal Epithelial Cell Urine Mucus (None Prsent) COVID-19 Eval Order 08/16/20 08/16/20 08/16/20 Range/Units 10:07 10:07 10:07 WBC 6.28 (4.8-10.8) K/uL RBC 4.32 (4.2-5.4) M/uL Hgb 12.8 (12.0-16.0) g/dL Hct 36.4 L (37-47) % MCV 84.3 (80-100) fL MCH 29.6 (25-34) pg MCHC 35.2 (32-36) g/dL RDW Std Deviation 42.6 (36.4-46.3) fL RDW Coeff of Suri 13.9 (11.5-14.5) % Plt Count 209 (130-400) K/uL MPV 9.6 (7.4-10.4) fL Immature Gran % (Auto) 0.2 % Neut % (Auto) 74.3 % Lymph % (Auto) 17.4 % Mchenry % (Auto) 7.3 % Eos % (Auto) 0.6 % Baso % (Auto) 0.2 % Neut # (Auto) 4.67 (1.4-6.5) K/uL Lymph # (Auto) 1.09 L (1.2-3.4) K/uL Mchenry # (Auto) 0.46 (0.11-0.59) K/uL Eos # (Auto) 0.04 (0-0.5) K/uL Baso # (Auto) 0.01 (0-0.2) K/uL Immature Gran # (Auto) 0.01 (0.00-0.02) K/uL ESR (0-21) mm/hr PT 10.9 (9.0-12.0) Seconds INR 1.1 (0.9-1.1) APTT 26.7 (21.0-31.0) Seconds PTT Ratio 1.0 Sodium (136-145) mmol/L Potassium (3.5-5.1) mmol/L Chloride (98-107) mmol/L Carbon Dioxide (21-32) mmol/L Anion Gap (3-11) BUN (7-18) mg/dl Creatinine (0.6-1.2) mg/dl Est Cr Clr Drug Dosing Est GFR ( Amer) Est GFR (Non-Af Amer) BUN/Creatinine Ratio (10-20) Glucose (70-99) mg/dl Lactate (0.4-2.0) mmol/L Calcium (8.5-10.1) mg/dl Magnesium (1.8-2.4) mg/dl Total Bilirubin (0.2-1) mg/dl AST (15-37) U/L ALT (12-78) U/L Alkaline Phosphatase (45-117) U/L Troponin I (0-0.045) ng/ml C-Reactive Protein (0-0.29) mg/dl Total Protein (6.4-8.2) gm/dl Albumin (3.4-5.0) gm/dl Globulin (2.5-4.0) gm/dl Albumin/Globulin Ratio (0.9-2) Procalcitonin 3.47 H (0-0.5) ng/ml Random Cortisol mcg/dl Urine Color Urine Appearance (Clear) Urine pH (4.5-7.5) Ur Specific Wrights (1.000-1.030) Urine Protein (Negative) Urine Glucose (UA) (Negative) Urine Ketones (Negative) Urine Blood (Negative) Urine Nitrite (Negative) Urine Bilirubin (Negative) Urine Urobilinogen (Negative) Ur Leukocyte Esterase (Negative) Urine WBC (Auto) (0-5) /hpf Urine RBC (Auto) (0-4) /hpf U Hyaline Cast (Auto) (0-5) /lpf U Epithel Cells (Auto) (0-5) /lpf Urine Bacteria (Auto) (Negative) Ur Renal Epithelial Cell Urine Mucus (None Prsent) COVID-19 Eval Order 08/16/20 08/16/20 08/16/20 Range/Units 10:07 12:35 13:50 WBC (4.8-10.8) K/uL RBC (4.2-5.4) M/uL Hgb (12.0-16.0) g/dL Hct (37-47) % MCV (80-100) fL MCH (25-34) pg MCHC (32-36) g/dL RDW Std Deviation (36.4-46.3) fL RDW Coeff of Suri (11.5-14.5) % Plt Count (130-400) K/uL MPV (7.4-10.4) fL Immature Gran % (Auto) % Neut % (Auto) % Lymph % (Auto) % Mchenry % (Auto) % Eos % (Auto) % Baso % (Auto) % Neut # (Auto) (1.4-6.5) K/uL Lymph # (Auto) (1.2-3.4) K/uL Mchenry # (Auto) (0.11-0.59) K/uL Eos # (Auto) (0-0.5) K/uL Baso # (Auto) (0-0.2) K/uL Immature Gran # (Auto) (0.00-0.02) K/uL ESR (0-21) mm/hr PT (9.0-12.0) Seconds INR (0.9-1.1) APTT (21.0-31.0) Seconds PTT Ratio Sodium (136-145) mmol/L Potassium (3.5-5.1) mmol/L Chloride (98-107) mmol/L Carbon Dioxide (21-32) mmol/L Anion Gap (3-11) BUN (7-18) mg/dl Creatinine (0.6-1.2) mg/dl Est Cr Clr Drug Dosing Est GFR ( Amer) Est GFR (Non-Af Amer) BUN/Creatinine Ratio (10-20) Glucose (70-99) mg/dl Lactate 1.2 (0.4-2.0) mmol/L Calcium (8.5-10.1) mg/dl Magnesium (1.8-2.4) mg/dl Total Bilirubin (0.2-1) mg/dl AST (15-37) U/L ALT (12-78) U/L Alkaline Phosphatase (45-117) U/L Troponin I (0-0.045) ng/ml C-Reactive Protein (0-0.29) mg/dl Total Protein (6.4-8.2) gm/dl Albumin (3.4-5.0) gm/dl Globulin (2.5-4.0) gm/dl Albumin/Globulin Ratio (0.9-2) Procalcitonin (0-0.5) ng/ml Random Cortisol mcg/dl Urine Color Yellow Urine Appearance Clear (Clear) Urine pH 6.0 (4.5-7.5) Ur Specific Wrights 1.014 (1.000-1.030) Urine Protein 1+ H (Negative) Urine Glucose (UA) Negative (Negative) Urine Ketones 3+ H (Negative) Urine Blood Negative (Negative) Urine Nitrite Negative (Negative) Urine Bilirubin Negative (Negative) Urine Urobilinogen Negative (Negative) Ur Leukocyte Esterase Negative (Negative) Urine WBC (Auto) 1-5 (0-5) /hpf Urine RBC (Auto) 0-4 (0-4) /hpf U Hyaline Cast (Auto) 10-30 H (0-5) /lpf U Epithel Cells (Auto) 0-5 (0-5) /lpf Urine Bacteria (Auto) Negative (Negative) Ur Renal Epithelial Cell Not Reportable Urine Mucus Present A (None Prsent) COVID-19 Eval Order [facility]sv at [facility] Administered Medications Discontinued Medications Sodium Chloride (Nss 1000ml) 1,000 mls @ 999 mls/hr IV .Q1H1M ONE Stop: 08/16/20 10:34 Last Infusion: 08/16/20 11:56 Dose: 0 mls/hr Documented by: [id number] Admin: 08/16/20 10:56 Dose: 999 mls/hr Documented by: [id number] Potassium Chloride (K Mauri / Wtr) 10 meq in 100 mls @ 100 mls/hr IV Q1H KAMILA Stop: 08/16/20 12:59 Last Infusion: 08/16/20 13:27 Dose: 0 mls/hr Documented by: [id number] Admin: 08/16/20 12:27 Dose: 100 mls/hr Documented by: [id number] Infusion: 08/16/20 12:27 Dose: 0 mls/hr Documented by: [id number] Admin: 08/16/20 11:27 Dose: 100 mls/hr Documented by: [id number] Sodium Chloride (Nss 1000ml) 1,000 mls @ 999 mls/hr IV .Q1H1M ONE Stop: 08/16/20 11:47 Last Infusion: 08/16/20 12:30 Dose: 0 mls/hr Documented by: [id number] Admin: 08/16/20 11:30 Dose: 999 mls/hr Documented by: [id number] Lorazepam (Ativan) 1 mg in 2 mls @ 2 mls/min IV NOW STA Stop: 08/16/20 11:37 Last Admin: 08/16/20 11:46 Dose: 2 mls/min Documented by: [id number] Imaging Data Radiologist's Impression: Patient: YNES MCCARTY Admit Date: 08/16/20 MR#: [id number] Address1: [address] [facility] Acct ID:[id number] Address2: Date: 1975 [facility] Zip: [place] [address] Age: 45 Location: ED Sex: F Room/Bed: Att Phy: Diagnosis: LIGHT HEADED, WEAKNESS Mirtha Phy: Jasiel Fritz DO Service Date: 08/16/20 Fam Phy: Interpreting Phy: Devaughn Borja Admit Phy: Ordering Phy: Alexy Asencio DO cc: ~ XR chest 1V portable HISTORY: 45 years-old Female SEPSIS acute sepsis COMPARISON: Chest radiograph 10/14/2020, CT chest 07/29/2020 TECHNIQUE: Portable AP view of the chest FINDINGS: Cardiomediastinal and hilar silhouettes are unchanged. Edema. 5.7 cm right upper lobe mass redemonstrated. Left subclavian Uttdjj-d-Tdew catheter is in unchange d positioning. No pneumothorax, pleural effusion, new airspace consolidation or overt pulmonary edema. Partially imaged hardware of the left humerus. Bones appear grossly intact. Bilateral breast implants. IMPRESSION: 1. No acute process. 2. Right upper lobe mass redemonstrated. ACT 112: Negative or not required by law. The above report was generated using voice recognition software. It may contain grammatical, syntax or spelling errors. Electronically signed by: Ashwin Borja M.D. 08/16/2020 9:58 AM Dictated: 08/16/20 0956 Transcribed: 08/16/20955 Patient: YNES MCCARTY Admit Date: 08/16/20 MR#: [id number] Address1: [address] Acct ID:[id number] Address2: Date: 1975 [facility] Zip: [place] [address] Age: 45 Location: ED Sex: F Room/Bed: Att Phy: Diagnosis: LIGHT HEADED, WEAKNESS Mirtha Phy: Jasiel Fritz DO Service Date: 08/16/20 Fam Phy: Interpreting Phy: Axel Hook MD Admit Phy: Ordering Phy: Alexy Asencio DO cc: ~ XR KUB/Abdomen 1 view CLINICAL HISTORY: fullness COMPARISON STUDY: 07/14/2020 FINDINGS: There is no pathologic bowel dilatation. There are surgical clips within the right upper quadrant consistent with a prior cholecystectomy. There are pelvic basin calcifications likely representing phleboliths. IMPRESSION: Nonobstructive bowel gas pattern. ACT 112: Negative or not required by law. Electronically signed by: Axel Hook M.D. 08/16/2020 9:57 AM Dictated: 08/16/20 0956 Transcribed: 08/16/20955 Discharge Plan Visit Data Chief Complaint: Illness Stated Complaint: LIGHT HEADED, WEAKNESS ED Provider: Alexy Asencio Discharge Problem: Weakness, Hypokalemia, Acute dehydration, Acute hypotension Patient Disposition: Being Evaluated by Hospitalist Condition: Good Forms Stand Alone Forms: My [facility] [employer] Prescriptions Prescriptions: No Action folic acid 1 mg Tablet 1 mg PO QAM RF: 0 ondansetron 8 mg Tablet,Disintegrating 8 mg PO Q8H PRN (Reason: Nausea) RF: 0 prochlorperazine maleate 10 mg Tablet 10 mg PO Q6H PRN (Reason: Nausea) RF: 0 morphine 15 mg Tablet Extended Release 15 mg PO Q12H Qty: 60 RF: 0 polyethylene glycol 3350 [Miralax] 17 gram powder in packet 17 g PO QID PRN (Reason: Constipation) RF: 0 sennosides-docusate sodium [Senokot-S] 8.6-50 mg tablet 1 tab PO BID PRN (Reason: Constipation) RF: 0 docusate sodium 100 mg capsule 100 mg PO BID PRN (Reason: Constipation) RF: 0 oxycodone 5 mg tablet 5 mg PO Q6H PRN (Reason: Pain, Severe) RF: 0 lorazepam 0.5 mg tablet 0.5 mg PO Q8H PRN (Reason: Anxiety) RF: 0 lorazepam [Ativan] 1 mg tablet 1 mg sublingual TID PRN (Reason: anxiety) Qty: 30 RF: 0 potassium chloride 20 mEq/15 mL liquid 20 meq PO DAILY Qty: 1200 RF: 0 levetiracetam 500 mg tablet 1,500 mg PO BID RF: 0 Referrals Referrals: Jasiel Fritz DO [Primary Care Provider] -
--- NOTE | 2020-08-16 09:58 | XRay Report ---
XR KUB/Abdomen 1 view CLINICAL HISTORY: fullness COMPARISON STUDY: 07/14/2020 FINDINGS: There is no pathologic bowel dilatation. There are surgical clips within the right upper qu adrant consistent with a prior cholecystectomy. There are pelvic basin calcifications likely represen ting phleboliths. IMPRESSION: Nonobstructive bowel gas pattern. ACT 112: Negative or not required by law. Electronically signed by: Axel Hook M.D. 08/16/2020 9:57 AM
--- NOTE | 2020-08-16 09:59 | XRay Report ---
XR chest 1V portable HISTORY: 45 years-old Female SEPSIS acute sepsis COMPARISON: Chest radiograph 10/14/2020, CT chest 07/29/2020 TECHNIQUE: Portable AP view of the chest FINDINGS: Cardiomediastinal and hilar silhouettes are unchanged. Edema. 5.7 cm right upper lobe mass redemonstr ated. Left subclavian Ecsgth-e-Rklg catheter is in unchanged positioning. No pneumothorax, pleural ef fusion, new airspace consolidation or overt pulmonary edema. Partially imaged hardware of the left hu merus. Bones appear grossly intact. Bilateral breast implants. IMPRESSION: 1. No acute process. 2. Right upper lobe mass redemonstrated. ACT 112: Negative or not required by law. The above report was generated using voice recognition software. It may contain grammatical, syntax o r spelling errors. Electronically signed by: Ashwin Borja M.D. 08/16/2020 9:58 AM
[2020-08-16 10:18] LABS: Basophils # (auto) 0.01 K/uL (0-0.2); Basophils % (auto) 0.2 %; Eosinophils # (auto) 0.04 K/uL (0-0.5); Eosinophils % (auto) 0.6 %; Hematocrit (blood only) 36.4 % (37-47); Hemoglobin 12.8 g/dL (12.0-16.0); Immature Granulocytes # (auto) 0.01 K/uL (0.00-0.02); Immature Granulocytes % (auto) 0.2 %; Lymphocytes # (auto) 1.09 K/uL (1.2-3.4); Lymphocytes % (auto) 17.4 %; Mean Corpuscular Hemoglobin 29.6 pg (25-34); Mean Corpuscular Hgb Conc 35.2 g/dL (32-36); Mean Corpuscular Volume 84.3 fL (80-100); Mean Platelet Volume 9.6 fL (7.4-10.4); Monocytes # (auto) 0.46 K/uL (0.11-0.59); Monocytes % (auto) 7.3 %; Neutrophils # (auto) 4.67 K/uL (1.4-6.5); Neutrophils % (auto) 74.3 %; Platelet Count 209 K/uL (130-400); RDW Coefficient of Variation 13.9 % (11.5-14.5); RDW Standard Deviation 42.6 fL (36.4-46.3); Red Blood Count 4.32 M/uL (4.2-5.4); White Blood Count 6.28 K/uL (4.8-10.8)
[2020-08-16 10:39] LABS: Alanine Aminotransferase 132 U/L (12-78); Albumin Level 3.3 gm/dl (3.4-5.0); Aspartate Aminotransferase 57 U/L (15-37); BUN Creatinine Ratio 12.8 (10-20); Blood Urea Nitrogen 6 mg/dl (7-18); Carbon Dioxide 27 mmol/L (21-32); Chloride 100 mmol/L (98-107); Est GFR (African American) 136.4; Est GFR (Non-African American) 117.7; Glucose 92 mg/dl (70-99); INR 1.1 (0.9-1.1); Magnesium 1.8 mg/dl (1.8-2.4); Partial Thromboplastin Time 26.7 Seconds (21.0-31.0); Prothrombin Time 10.9 Seconds (9.0-12.0); Sodium 133 mmol/L (136-145)
[2020-08-16 10:44] LABS: Albumin Globulin Ratio 0.8 (0.9-2); Alkaline Phosphatase 150 U/L (45-117); Bilirubin,Total 1.4 mg/dl (0.2-1); C Reactive Protein 3.64 mg/dl (0-0.29); Globulin 4.1 gm/dl (2.5-4.0); Total Protein 7.4 gm/dl (6.4-8.2); Troponin I < 0.015 ng/ml (0-0.045)
[2020-08-16] MEDS: POTASSIUM CHLORIDE / WTR 10 MEQ/100 ML PLCT IV SCH ×4 (11:27→19:59)
[2020-08-16] MEDS ORDERED: LORazepam 1 MG/2 ML VIAL IV STA (11:36)
[2020-08-16 13:19] LABS: Appearance Urine Clear (Clear); Bacteria Urine Automated Negative (Negative); Bilirubin Urine Negative (Negative); Blood Urine Negative (Negative); Color Urine Yellow; Glucose Urine UA Negative (Negative); Ketones Urine 3+ (Negative); Leukocyte Esterase Urine Negative (Negative); Nitrite Urine Negative (Negative); Protein Urine 1+ (Negative); RBC Urine Automated 0-4 /hpf (0-4); Specific Gravity Urine 1.014 (1.000-1.030); Urobilinogen Urine Negative (Negative)
[2020-08-16 13:40] LABS: Epithelial Cell Urine Auto 0-5 /lpf (0-5); Mucus Urine Present (None Prsent)
[2020-08-16 14:53] LABS: Influenza A virus by PCR Negative (Neg); Influenza B virus by PCR Negative (Neg); RSV by PCR Negative (Neg); SARS CoV2 RNA(COVID-19) InHosp NEGATIVE (Negative)
--- NOTE | 2020-08-16 14:54 | History & Physical Report ---
Date of Service August 16, 2020 Assessment & Plan (1) Weakness: (2) Acute dehydration: (3) Hypokalemia: (4) Chemotherapy adverse reaction: (5) Metastatic adenocarcinoma to brain: (6) Cancer related pain: (7) Seizure disorder: (8) Elevated LFTs: (9) DVT prophylaxis: This is a 45-year-old female who unfortunately has right lung adenocarcinoma with mets to the brain, history of complex partial seizure, history of breast cancer, BRCA positive, depression, FRANCK who presents to ED secondary to weakness, dizziness and nausea x5 days. Pt with know R lung adenoca with mets to brains/p stereotactic radiation and brain tumor resection currently undergoing chemotherapy. Resumed Cycle 2 on 08/10 with carboplatin and keytruda. She is scheduled for WBRT 08/22. Since has developed poor po intake, nausea, weakness and dizziness. She does not meet SIRS criteria per current CMS guidelines but did present with hypotension/tachycardia with evidence of elevated ESR/CRP and procal. Could be in setting of dehydration but underlying infection not ruled out. Sx likely exacerbated by chemotherapy. admit to med tele give additional 1L of IVF x 1 now then 125cc/hr + 20meq KCL continue antiemetics, boost supplement and diet as tolerated blood and urine cultures ordered empirically tx with IV cefepime until cultures return Hypokalemia received 10 meq Krider in ED x 2; 2 additional riders order pt does not tolerate po via tablet or elixr consult dry curer to educate pt on high K foods Seizure d/o continue keppra Elevated LFT pt with bili 1.4, ast 57, alt 132 and alp 150, elevated from prior CMP in setting of continued nausea will obtain RUQ US, she does have hx of lap radha Cancer related pain continue morphine/oxy IR Dvt ppx: Lovenox Dispo: med tele FULL CODE PCP: Chava Fritz Discussed case with Obinna Arndt Nurse ELYSE. Pt has had freq ER visits and has very unfortunate diagnosis. She would benefit from palliative consult to discuss options for at home treatment or home health, i.e. ivf etc. Pt has been resistant to this in past per discussion with ER CM who has also reached out to outpt obinna PAPPAS to assist pt. Pt was seen and examined in collaboration with Dr. Albright, please see addendum History of Present Illness Chief Complaint: Weakness, dizziness and nausea x5 days. Primary Care Provider: Jasiel Fritz DO This is a 45-year-old female who unfortunately has right lung adenocarcinoma with mets to the brain, history of complex partial seizure, history of breast cancer, BRCA positive, depression, FRANCK who presents to ED secondary to weakness, dizziness and nausea x5 days. Of significance she recently started on cycle 2 of chemotherapy carboplatin and Keytruda on 08/10. 2 days post chemotherapy she developed significant nausea and inability to tolerate p.o. intake. Her p.o. intake over the past 5 days has been very minimal and poor including liquids. She did have brain mapping done this week and is scheduled to start whole brain radiation next Thursday. Her is at bedside and states, "if only she can eat I think she would not be as weak." She denies any fever, chills, sweats, lightheadedness, dizziness, chest pain, shortness of breath, palpi tations, abdominal pain, emesis, diarrhea, melena or medic easier. She does have a chronic cough secondary to lung cancer but this is unchanged. She has also been constipated and has not had a bowel movement in 6 days. Normal for her is 5 days. She admits to being lightheaded and dizzy with movement. She was seen and eval by PCP yesterday for similar sx. She was offered IVF in office but declined. She thought about coming to ED then due to hypokalemia. Of significance patient recently hospitalized 08/04-06/26 breakthrough seizure. She underwent MRI which revealed increasing metastatic lesions and therefore plan is to undergo whole brain radiation therapy. She was recently taken off her Decadron therapy. In ED patient initially was hypotensive and tachycardic. She received 2 L of IV fluid and 2K riders. She did have improvement in hemodynamics. She did not meet SIRS/SEpsis critiera. She did have elevated esr/crp, procalcitonin, and LFTS. No infectious source detected in ED. Allergies Allergy/AdvReac Type Severity Reaction Status Date / Time Penicillins Allergy Intermediate Swelling Verified 08/16/20 10:01 Home Medications Medication Instructions Recorded Confirmed Type folic acid 1 mg PO QAM 07/09/20 08/16/20 History ondansetron 8 mg PO Q8H PRN 07/09/20 08/16/20 History prochlorperazine maleate 10 mg PO Q6H PRN 07/09/20 08/16/20 History morphine 15 mg PO Q12H #60 tab 07/16/20 08/16/20 Rx polyethylene glycol 3350 [Miralax] 17 g PO QID PRN 07/23/20 08/16/20 History sennosides-docusate sodium 1 tab PO BID PRN 07/23/20 08/16/20 History [Senokot-S] docusate sodium 100 mg PO BID PRN 07/29/20 08/16/20 History oxycodone 5 mg PO Q6H PRN 07/29/20 08/16/20 History lorazepam 0.5 mg PO Q8H PRN 08/12/20 08/16/20 History lorazepam [Ativan] 1 mg SUBLINGUAL TID PRN #30 tab 08/12/20 08/16/20 Rx potassium chloride 20 meq PO DAILY #1200 ml 08/14/20 08/16/20 Rx levetiracetam 1,500 mg PO BID 08/16/20 08/16/20 History Past Med/Surg History Medical History Acute hypokalemia Bilateral leg pain Brain metastases Cancer related pain Chest pain Metastatic lung carcinoma Surgical History H/O bilateral mastectomy H/O craniotomy H/O: hysterectomy History of cholecystectomy Family History Aunt Breast cancer Social History Smoking Status: Former smoker Tobacco Type: Cigarettes packs per day: 1; Years Smoked: 23; Second Hand Exposure: No; Hx Alcohol Use: No Hx Substance Use: No Preferred Language: Latvian Communication Ability: Effective Android Programmer Required: No Beliefs That Will Affect Care: None marital status: Current Living Situation: Spouse How many Children do You have: 2 Feels Safe at Home: Yes Assistive Devices: None Review of Systems Review of Systems: All systems reviewed & are unremarkable except as noted in HPI & below Physical Exam Physical Exam: Constitutional: WD/WN, vitals as above, NAD, sitting up in bed, pleasant, conversing easily Head: Normocephalic, Atraumatic Eyes: PERRL, conjunctivae normal, anicteric sclerae ENMT: external ear and nose normal, oropharynx normal Neck: trachea midline, no thyromegaly normal visual inspection Respiratory: normal respiratory effort, lungs clear to auscultation, no wheeze, rales, rhonchi. Normal insp/exp effort, no accessory muscle use Cardiovascular: RRR, no murmur, no edema Vessels: no JVD or carotid bruit Chest: Port to LACW, normal inspection of chest Abdomen: normal bowel sounds, soft, nontender, no hepatosplenomegaly Musculoskeletal: no cyanosis or clubbing, extremities motor strength 5/5 Skin: no rashes, warm and dry normal turgor Neurologic: PERRL, EOMI, accommodation nl, no face palsy, no dysarthria CN's II-XI intact bilaterally and moves all extremities Psychiatric: A+Ox3, euthymic affect Lymphatic: no cervical or axillary lymphadenopathy : deferred Results & Data Results & Data ([facility]) Vital Signs (Past 12 Hours) Vital Signs Temp Pulse Resp BP Pulse Ox 08/16/20 12:06 98 08/16/20 11:30 82 14 117/72 100 08/16/20 11:00 82 14 105/68 95 08/16/20 10:30 92 H 16 90/71 L 98 08/16/20 10:05 20 08/16/20 10:00 99 H 18 114/76 96 08/16/20 09:35 20 08/16/20 09:33 88 14 108/76 96 08/16/20 09:02 36.0 C L 130 H 20 95/69 L 99 Diagnostic Findings CXR: IMPRESSION: 1. No acute process. 2. Right upper lobe mass redemonstrated. KUB: IMPRESSION: Nonobstructive bowel gas pattern. Medications Administered Sodium Chloride (Nss 1000ml) 1,000 mls @ 999 mls/hr IV .Q1H1M ONE Stop: 08/16/20 15:41 Last Admin: 08/16/20 14:48 Dose: 999 mls/hr Documented by: [id number] Discontinued Medications Sodium Chloride (Nss 1000ml) 1,000 mls @ 999 mls/hr IV .Q1H1M ONE Stop: 08/16/20 10:34 Last Infusion: 08/16/20 11:56 Dose: 0 mls/hr Documented by: [id number] Admin: 08/16/20 10:56 Dose: 999 mls/hr Documented by: [id number] Potassium Chloride (K Mauri / Wtr) 10 meq in 100 mls @ 100 mls/hr IV Q1H KAMILA Stop: 08/16/20 12:59 Last Infusion: 08/16/20 13:27 Dose: 0 mls/hr Documented by: [id number] Admin: 08/16/20 12:27 Dose: 100 mls/hr Documented by: [id number] Infusion: 08/16/20 12:27 Dose: 0 mls/hr Documented by: [id number] Admin: 08/16/20 11:27 Dose: 100 mls/hr Documented by: [id number] Sodium Chloride (Nss 1000ml) 1,000 mls @ 999 mls/hr IV .Q1H1M ONE Stop: 08/16/20 11:47 Last Infusion: 08/16/20 12:30 Dose: 0 mls/hr Documented by: [id number] Admin: 08/16/20 11:30 Dose: 999 mls/hr Documented by: [id number] Lorazepam (Ativan) 1 mg in 2 mls @ 2 mls/min IV NOW STA Stop: 08/16/20 11:37 Last Admin: 08/16/20 11:46 Dose: 2 mls/min Documented by: [id number] ECG Rate (beats per minute): 100 Rhythm: sinus tachycardia COVID-19 Results Results COVID-19 Adm Lab Results: RBC 4.32 M/uL (4.2-5.4) 08/16/20 WBC 6.28 K/uL (4.8-10.8) 08/16/20 Hgb 12.8 g/dL (12.0-16.0) 08/16/20 Hct 36.4 % (37-47) L 08/16/20 Plt Count 209 K/uL (130-400) 08/16/20 Neutrophils (%) (Auto) 74.3 % 08/16/20 Lymphocytes (%) (Auto) 17.4 % 08/16/20 Monocytes # (Auto) 0.46 K/uL (0.11-0.59) 08/16/20 Eosinophils # (Auto) 0.04 K/uL (0-0.5) 08/16/20 Immature Granulocyte % (Auto) 0.2 % 08/16/20 Neutrophils # (Auto) 4.67 K/uL (1.4-6.5) 08/16/20 Lymphocytes # (Auto) 1.09 K/uL (1.2-3.4) L 08/16/20 Monocytes # (Auto) 0.46 K/uL (0.11-0.59) 08/16/20 Eosinophils # (Auto) 0.04 K/uL (0-0.5) 08/16/20 Basophils # (Auto) 0.01 K/uL (0-0.2) 08/16/20 Immature Granulocyte # (Auto) 0.01 K/uL (0.00-0.02) 08/16/20 Na 133 mmol/L (136-145) L 08/16/20 K 3.0 mmol/L (3.5-5.1) L 08/16/20 Cl 100 mmol/L (98-107) 08/16/20 CO2 27 mmol/L (21-32) 08/16/20 Anion Gap 6.0 (3-11) 08/16/20 BUN 6 mg/dl (7-18) L 08/16/20 Creatinine 0.50 mg/dl (0.6-1.2) L 08/16/20 BUN/Creatinine Ratio 12.8 (10-20) 08/16/20 Glucose Level 92 mg/dl (70-99) 08/16/20 Ca 9.0 mg/dl (8.5-10.1) 08/16/20 Total Bilirubin 1.4 mg/dl (0.2-1) H 08/16/20 AST/SGOT 57 U/L (15-37) H 08/16/20 ALT/SGPT 132 U/L (12-78) H 08/16/20 Alkaline Phosphatase 150 U/L (45-117) H 08/16/20 Total Protein 7.4 gm/dl (6.4-8.2) 08/16/20 Albumin 3.3 gm/dl (3.4-5.0) L 08/16/20 Globulin 4.1 gm/dl (2.5-4.0) H 08/16/20 Albumin/Globulin Ratio 0.8 (0.9-2) L 08/16/20 Troponin I < 0.015 ng/ml (0-0.045) 08/16/20 CRP 3.64 mg/dl (0-0.29) H 08/16/20 Procalcitonin 3.47 ng/ml (0-0.5) H 08/16/20 PTT 26.7 Seconds (21.0-31.0) 08/16/20 INR 1.1 (0.9-1.1) 08/16/20 COVID-19 PCR NEGATIVE (Negative) 08/16/20 Influenza Virus Type A (PCR) Negative (Neg) 08/16/20 Influenza Virus Type B (PCR) Negative (Neg) 08/16/20 Chest X-Ray 08/16/20 Code Status & VTE Plan Code Status Full Code VTE Prophylaxis Plan VTE Prophylaxis will be ordered: Yes (1) Chemotherapy adverse reaction Encounter type: subsequent encounter Qualified Code(s): T45.1X5D - Adverse effect of antineoplastic and immunosuppressive drugs, subsequent encounter
[2020-08-16] MEDS ORDERED: CEFEPIME CONSULT ACTIVE PRN (14:58)
[2020-08-16] MEDS ORDERED: CEFEPIME 2,000 MG/20 ML VIAL ONE (15:27)
--- NOTE | 2020-08-16 16:05 | Ultrasound Report ---
US abdomen limited HISTORY: 45 years-old Female elevated lfts acutely elevated LFTs COMPARISON: CT abdomen and pelvis 07/23/2020 TECHNIQUE: Multiple real-time sonographic images of the abdominal right upper quadrant were obtained assessing grayscale appearance and color flow FINDINGS: Cholecystectomy. Pancreatic duct measures the upper limits of normal at 4 mm, unchanged. Echogenic li hero may reflect hepatic steatosis. No hepatic mass identified. Common bile duct is normal measuring 5 mm. Imaged right kidney is unremarkable without hydronephrosis. The previously noted pathologic upper abd ominal adenopathy is better characterized on comparison CT study. IMPRESSION: 1. Cholecystectomy. 2. No biliary ductal dilation. 3. Echogenic liver suggests hepatic steatosis. 4. Pathologic upper abdominal adenopathy is better characterized on comparison CT. ACT 112: Negative or not required by law. The above report was generated using voice recognition software. It may contain grammatical, syntax o r spelling errors. Electronically signed by: Ashwin Borja M.D. 08/16/2020 4:04 PM
--- NOTE | 2020-08-16 16:42 | Electrocardiogram Report ---
Test Reason : Blood Pressure : / mmHG Vent. Rate : 100 BPM Atrial Rate : 100 BPM P-R Int : 106 ms QRS Dur : 074 ms QT Int : 340 ms P-R-T Axes : 041 086 076 degrees QTc Int : 438 ms Poor data quality, interpretation may be adversely affected Sinus rhythm Otherwise normal ECG When compared with ECG of 14-AUG-2020 12:51, No significant change was found Confirmed by Ezekiel Lopez ([id number]) on 08/16/2020 4:42:09 PM Referred By: SELF Confirmed By:Tushar Lopez
[2020-08-16] MEDS ORDERED: ALUMINUM/MAGNESIUM SUSP 30 ML UDC PO PRN (17:24)
[2020-08-16] MEDS ORDERED: POLYETHYLENE (MIRALAX) 17 GM PACK PO PRN ×2 (17:24)
[2020-08-16] MEDS ORDERED: ONDANSETRON INJ 2 MG/ML 2 ML VIAL IV PRN (17:24)
[2020-08-16] MEDS ORDERED: ACETAMINOPHEN 325 MG TAB PO PRN (17:24)
[2020-08-16] MEDS ORDERED: ONDANSETRON 8MG OD TAB PO PRN (17:24)
[2020-08-16] MEDS ORDERED: MAGNESIUM HYDROXIDE SUSP 30 ML UDC PO PRN (17:24)
[2020-08-16] MEDS ORDERED: PROCHLORPERAZINE MALEATE 10 MG TAB PO PRN (17:24)
[2020-08-16] MEDS ORDERED: MoRPHine SULFATE CR 15 MG TABCR PO SCH (18:00)
[2020-08-16] MEDS ORDERED: Nursing to Pharmacy Communication SCH (18:00)
[2020-08-16] MEDS: NSS + 20MEQ KCL 20 MEQ/1,000 ML BAG IV SCH (18:51)
[2020-08-16] MEDS: CEFEPIME 2,000 MG in SYRINGE 0 ML IV SCH (18:54)
[2020-08-16] MEDS: LORazepam 0.5 MG TAB PO PRN (19:00)
[2020-08-16] MEDS: DOCUSATE SODIUM/SENNA 50/8.6MG TAB PO SCH (20:07)
[2020-08-16] MEDS: DOCUSATE SODIUM 100 MG CAP PO SCH (20:07)
[2020-08-16] MEDS: MoRPHine SULFATE CR 15 MG TABCR PO SCH (20:07)
[2020-08-16] MEDS: levETIRAcetam 500 MG TAB PO SCH (20:08)
[2020-08-16] MEDS ORDERED: ENOXAPARIN INJ 40 MG/0.4 ML SYR SQ SCH (22:00)
[2020-08-16] MEDS ORDERED: HEPARIN 100 UNIT/ML 5ML FLUSH FLUSH PRN (23:28)
[2020-08-17] MEDS: NSS + 20MEQ KCL 20 MEQ/1,000 ML BAG IV SCH ×2 (02:55→10:07)
[2020-08-17] MEDS: oxyCODONE HCL IR 5 MG TAB (IMMEDIATE RELEASE) PO PRN ×2 (02:58→09:05)
[2020-08-17] MEDS: LORazepam 0.5 MG TAB PO PRN ×2 (06:16→15:57)
[2020-08-17] MEDS: CEFEPIME 2,000 MG in SYRINGE 0 ML IV SCH ×2 (06:21→18:00)
[2020-08-17 06:56] LABS: Basophils # (auto) 0.01 K/uL (0-0.2); Basophils % (auto) 0.2 %; Eosinophils # (auto) 0.04 K/uL (0-0.5); Eosinophils % (auto) 0.8 %; Hematocrit (blood only) 28.2 % (37-47); Hemoglobin 9.9 g/dL (12.0-16.0); Immature Granulocytes # (auto) 0.02 K/uL (0.00-0.02); Immature Granulocytes % (auto) 0.4 %; Lymphocytes # (auto) 1.19 K/uL (1.2-3.4); Lymphocytes % (auto) 24.8 %; Mean Corpuscular Hemoglobin 29.6 pg (25-34); Mean Corpuscular Hgb Conc 35.1 g/dL (32-36); Mean Corpuscular Volume 84.4 fL (80-100); Mean Platelet Volume 9.4 fL (7.4-10.4); Monocytes # (auto) 0.51 K/uL (0.11-0.59); Monocytes % (auto) 10.6 %; Neutrophils # (auto) 3.03 K/uL (1.4-6.5); Neutrophils % (auto) 63.2 %; Platelet Count 176 K/uL (130-400); RDW Coefficient of Variation 14.1 % (11.5-14.5); RDW Standard Deviation 43.4 fL (36.4-46.3); Red Blood Count 3.34 M/uL (4.2-5.4)
[2020-08-17 07:02] LABS: Alanine Aminotransferase 87 U/L (12-78); Albumin Level 2.4 gm/dl (3.4-5.0); Aspartate Aminotransferase 36 U/L (15-37); BUN Creatinine Ratio 7.4 (10-20); Blood Urea Nitrogen 3 mg/dl (7-18); Carbon Dioxide 25 mmol/L (21-32); Chloride 108 mmol/L (98-107); Creatinine Clr Calc Pharmacy 206.7 ml/min; Est GFR (African American) > 150.0; Glucose 78 mg/dl (70-99); Magnesium 1.5 mg/dl (1.8-2.4); Potassium 3.1 mmol/L (3.5-5.1); Sodium 138 mmol/L (136-145)
[2020-08-17 07:06] LABS: Albumin Globulin Ratio 0.8 (0.9-2); Alkaline Phosphatase 117 U/L (45-117); Bilirubin,Total 0.8 mg/dl (0.2-1); Globulin 3.2 gm/dl (2.5-4.0); Total Protein 5.6 gm/dl (6.4-8.2)
[2020-08-17] MEDS: DOCUSATE SODIUM 100 MG CAP PO SCH ×2 (07:37→20:30)
[2020-08-17] MEDS: MoRPHine SULFATE CR 15 MG TABCR PO SCH ×2 (07:37→20:30)
[2020-08-17] MEDS: levETIRAcetam 500 MG TAB PO SCH ×2 (07:37→20:31)
[2020-08-17] MEDS: FOLIC ACID 1 MG TAB PO SCH (07:37)
[2020-08-17] MEDS: DOCUSATE SODIUM/SENNA 50/8.6MG TAB PO SCH ×2 (07:38→20:30)
[2020-08-17] MEDS ORDERED: MAGNESIUM SULFATE 50% 4 GM in SODIUM CHLORIDE 0.9% 500 ML IV SCH (09:45)
[2020-08-17] MEDS ORDERED: POTASSIUM CHLORIDE PWD 20 MEQ PACK PO SCH (10:00)
--- NOTE | 2020-08-17 15:55 | Hospitalist Progress Note ---
Date of Service August 17, 2020 Assessment & Plan (1) Weakness: 2/2 recent chemotherapy and progressed cancer with metastatic disease. Cont to provide supportive care. There was a question of possible sepsis with an elevated procalcitonin, however, there is no current source of infection p resent. She can continue on cefepime for another day pending culture results and continued clinical improvement. Her procalcitonin is likely related to her lung cancer which can cause a false elevation of this. (2) Acute dehydration: Prob due to poor PO intake with post-chemotherapy nausea and food apathy. IVF overnight and she is now less nauseus and eating. (3) Hypokalemia: Pt cannot tolerate oral potassium She will continue to try and supplement potassium through diet and will check in am. If needs replacement, will give intravenously. Replace Mg if low, also. (4) Metastatic adenocarcinoma to brain: She was taken off Decadron 4mg BID on Thursday, 08/13 by her [facility] Rad Oncologist. (5) Right knee pain: nontruamatic right knee pain, recurrent, uncertain what triggers this. Reports that a recent xray was performed 07/18 revealing no appreciable cortical/osseous destruction. If there is persistent clinical concern for underlying lesion, MRI may be obtained. Consulting ortho for recommendations. Cont to ice knee as tolerated (6) Cancer related pain: Continue home narcotic therapy. (7) Seizure disorder: Cont Keppra per home regimen. (8) Hypomagnesemia: replaced with 4grams today. (9) DVT prophylaxis: Lovenox stopped in setting of brain mets/cont SCDs/ambulation Full Code Dispo-to home when feeling better. Lona Clark DO [facility] Hospitalist Admission and Anticipated Discharge Date Admission Date: August 16, 2020 Subjective 45 yo BRCA+ breast cancer patient with lung cancer and mets to brain She is on chemo with last treatment Thursday Reports a cycle of this nausea, apathy to food, etc happening post treatment in the past Also reports R knee pain with a h/o recurrent pain in the right knee, no ntraumatic and with uncertain triggers She states an xray was performed outpatient and didn't show anything She has point tenderness on the anterior tibial plateau medially She has difficulty bending or extending her right leg fully. She is eating. Review of Systems Review of Systems: All systems reviewed & are unremarkable except as noted in Subjective Physical Exam Physical Exam: CONSTITUTIONAL: WNWD, vitals as above, generally well- appearing EYES: EOMI bilaterally, pupils are round and equal bilaterally, normal conjunctivae, no scleral icterus ENT: external ear and nose normal, MMM RESPIRATORY: clear to auscultation bilaterally, no crackles, rales or wheezes, normal respiratory effort CARDIOVASCULAR: regular rate and rhythm, S1 and 2 heard without murmurs, gallops or rubs, no JVD, no peripheral edema GASTROINTESTINAL: soft, nontender, nondistended, no guarding MUSCULOSKELETAL: strength 5/5 throughout, head is normocephalic and atraumatic RIGHT KNEE: no overt swelling, point TTP to medial tibial plateau SKIN: warm and dry NEUROLOGIC: CN 2-12 grossly intact, no sensory deficit, normal cognition, normal speech, no gross focal deficits. PSYCHIATRIC: alert cooperative and oriented to person, place and time. Results & Data Results & Data ([facility]) Vital Signs (Past 12 Hours) Vital Signs Temp Pulse Pulse Resp BP Pulse Ox 08/17/20 07:37 36.7 C 98 H 16 93/60 L 97 08/17/20 07:10 87 Laboratory Results Short CBC 08/17/20 Range/Units 05:56 WBC 4.80 (4.8-10.8) K/uL Hgb 9.9 L (12.0-16.0) g/dL Hct 28.2 L (37-47) % Plt Count 176 (130-400) K/uL BMP 08/17/20 05:56 Sodium 138 Potassium 3.1 L Chloride 108 H Carbon Dioxide 25 BUN 3 L Creatinine 0.37 L Glucose 78 Calcium 8.0 L Liver Function 08/17/20 Range/Units 05:56 Total Bilirubin 0.8 D (0.2-1) mg/dl AST 36 (15-37) U/L ALT 87 H (12-78) U/L Alkaline Phosphatase 117 (45-117) U/L Albumin 2.4 L (3.4-5.0) gm/dl Medications Administered Current Inpatient Medications Acetaminophen (Acetaminophen 325 Mg Tab) 650 mg PO Q4H PRN PRN Reason: Pain or Fever Stop: 09/15/20 17:23 Al Hydrox/Mg Hydrox/Simethicone (Aluminum/Magnesium Susp 30 Ml Udc) 15 ml PO Q4H PRN PRN Reason: Dyspepsia Stop: 09/15/20 17:23 Docusate Sodium (Docusate Sodium 100 Mg Cap) 100 mg PO BID [facility] Stop: 09/15/20 20:59 Last Admin: 08/17/20 07:37 Dose: 100 mg Documented by: Enoxaparin Sodium (Enoxaparin Inj 40 Mg/0.4 Ml Syr) 40 mg SQ Q24H KAMILA Stop: 09/15/20 21:59 Last Admin: 08/16/20 20:08 Dose: 40 mg Documented by: Folic Acid (Folic Acid 1 Mg Tab) 1 mg PO QAM KAMILA Stop: 09/16/20 08:59 Last Admin: 08/17/20 07:37 Dose: 1 mg Documented by: Heparin Sodium (Porcine) (Heparin 100 Unit/Ml 5ml Flush) 5 ml FLUSH PRN PRN PRN Reason: Flush Stop: 09/15/20 23:27 Potassium Chloride/Sodium Chloride (Normal Saline W/20 Meq Kcl) 20 meq in 1,000 mls @ 125 mls/hr IV .Q8H KAMILA Stop: 09/15/20 17:59 Last Admin: 08/17/20 10:07 Dose: 125 mls/hr Documented by: Cefepime HCl 2,000 mg/ Syringe 20 mls @ 5 mls/min IV Q12H [facility]; Protocol Stop: 08/18/20 17:59 Last Admin: 08/17/20 06:21 Dose: 5 mls/min Documented by: Levetiracetam (Levetiracetam 500 Mg Tab) 1,500 mg PO BID [facility] Stop: 09/15/20 20:59 Last Admin: 08/17/20 07:37 Dose: 1,500 mg Documented by: Lorazepam (Lorazepam 0.5 Mg Tab) 0.5 mg PO Q8H PRN PRN Reason: Anxiety Stop: 09/15/20 17:23 Last Admin: 08/17/20 06:16 Dose: 0.5 mg Documented by: Magnesium Hydroxide (Magnesium Hydroxide Susp 30 Ml Udc) 30 ml PO Q12H PRN PRN Reason: Constipation Stop: 09/15/20 17:23 Miscellaneous Information (Cefepime Consult Active) 1 ea N/A UD PRN PRN Reason: Consult Stop: 09/15/20 14:57 Morphine Sulfate (Morphine Sulfate Cr 15 Mg Tabcr) 15 mg PO Q12@0800,1999 [facility] Stop: 08/30/20 19:59 Last Admin: 08/17/20 07:37 Dose: 15 mg Documented by: Ondansetron HCl (Ondansetron Inj 2 Mg/Ml 2 Ml Vial) 4 mg IV Q6H PRN PRN Reason: Nausea Stop: 09/15/20 17:23 Ondansetron HCl (Ondansetron 8mg Od Tab) 8 mg PO Q8H PRN PRN Reason: Nausea Stop: 09/15/20 17:23 Oxycodone HCl (Oxycodone Hcl Ir 5 Mg Tab (Immediate Release)) 5 mg PO Q6H PRN PRN Reason: Pain, Severe Stop: 08/30/20 17:37 Last Admin: 08/17/20 09:05 Dose: 5 mg Documented by: Polyethylene Glycol (Polyethylene (Miralax) 17 Gm Pack) 17 gm PO QID PRN PRN Reason: Constipation Stop: 09/15/20 17:23 Potassium Chloride (Potassium Chloride Pwd 20 Meq Pack) 40 meq PO Q6H [facility] Stop: 08/17/20 16:01 Last Admin: 08/17/20 10:08 Dose: 40 meq Documented by: Prochlorperazine (Prochlorperazine Maleate 10 Mg Tab) 10 mg PO Q6H PRN PRN Reason: Nausea Stop: 09/15/20 17:23 Senna/Docusate Sodium (Docusate Sodium/Senna 50/8.6mg Tab) 1 tab PO BID [facility] Stop: 09/15/20 20:59 Last Admin: 08/17/20 07:38 Dose: 1 tab Documented by:
--- NOTE | 2020-08-17 18:20 | XRay Report ---
XR knee RT 1 or 2V routine HISTORY: 45 years-old Female knee pain . Acute right-sided knee pain COMPARISON: Right knee radiographs 06/19/2020 TECHNIQUE: 2 views of the right knee FINDINGS: No acute fracture, dislocation or significant osteoarthritis. Trace joint effusion. Unremarkable soft tissues. IMPRESSION: Trace joint effusion without acute fracture. ACT 112: Negative or not required by law. The above report was generated using voice recognition software. It may contain grammatical, syntax o r spelling errors. Electronically signed by: Ashwin Borja M.D. 08/17/2020 6:18 PM
[2020-08-18] MEDS: oxyCODONE HCL IR 5 MG TAB (IMMEDIATE RELEASE) PO PRN ×2 (01:53→22:06)
[2020-08-18] MEDS: CEFEPIME 2,000 MG in SYRINGE 0 ML IV SCH (05:32)
[2020-08-18 06:35] LABS: Calcium 8.4 mg/dl (8.5-10.1); Creatinine Clr Calc Pharmacy 162.6 ml/min; Est GFR (African American) 139.2; Est GFR (Non-African American) 120.1; Magnesium 1.9 mg/dl (1.8-2.4); Potassium 2.8 mmol/L (3.5-5.1)
--- NOTE | 2020-08-18 08:00 | Orthopedic Consultation ---
Date of Consultation August 18, 2020 Assessment & Plan (1) Right knee pain: Atraumatic right knee pain for past 2-3 days. Gets flares of pain and then resolves. The last day pain has been subsiding and seems to be improving. Low suspicion for septic joint. Max tenderness over patellar tendon could be patellar tendonitis. NWB x-rays demonstrate some mild medial compartment narrowing, mild degenerative changes to PF compartment. Could be flare of her OA, possible meniscal pathology. Discussed IA steroid injection however since improving today patient wants to hold off on this. Recommend continued conservative management. Ice to affected knee, Lidoderm patches, gentle motion. If worsens could consider injection. Consider MRI as outpatient if continues. Will have Dr. Mcgregro evaluate patient later today. Thank you for consult, please contact us with any questions. History of Present Illness Reason for Consultation: Right knee pain Attending Physician: Lona Clark DO History of Present Illness 45 year old female with PMHx significant for breast Ca, lung adenocarcinoma with mets to the brain. She is admitted to hospital service secondary to weakness, currently undergoing chemo. We have been asked to evaluate patient for right knee pain. She notes history of intermittent right knee pain every couple of months. She has onset of pain anterior aspect of her knee and usually lasts for 2-3 days and then improves and resolves on its own. Has not had any prior treatments. Notes some giving out and pain with WB but is able to weight bear. No mechanical type symptoms. No history of trauma to her knee. Allergies Allergy/AdvReac Type Severity Reaction Status Date / Time Penicillins Allergy Intermediate Swelling Verified 08/16/20 10:01 Home Medications Medication Instructions Recorded Confirmed Type folic acid 1 mg PO QAM 07/09/20 08/16/20 History ondansetron 8 mg PO Q8H PRN 07/09/20 08/16/20 History prochlorperazine maleate 10 mg PO Q6H PRN 07/09/20 08/16/20 History morphine 15 mg PO Q12H #60 tab 07/16/20 08/16/20 Rx polyethylene glycol 3350 [Miralax] 17 g PO QID PRN 07/23/20 08/16/20 History sennosides-docusate sodium 1 tab PO BID PRN 07/23/20 08/16/20 History [Senokot-S] docusate sodium 100 mg PO BID PRN 07/29/20 08/16/20 History oxycodone 5 mg PO Q6H PRN 07/29/20 08/16/20 History lorazepam 0.5 mg PO Q8H PRN 08/12/20 08/16/20 History lorazepam [Ativan] 1 mg SUBLINGUAL TID PRN #30 tab 08/12/20 08/16/20 Rx potassium chloride 20 meq PO DAILY #1200 ml 08/14/20 08/16/20 Rx levetiracetam 1,500 mg PO BID 08/16/20 08/16/20 History Patient History Medical History (Updated 08/18/20 @ 08:04 by Julio C Bridges) Acute hypokalemia Bilateral leg pain Brain metastases BRCA gene positive Cancer related pain Chest pain Hx of breast cancer Metastatic lung carcinoma Seizure disorder Surgical History H/O bilateral mastectomy H/O craniotomy H/O: hysterectomy History of cholecystectomy Family History Aunt Breast cancer Social History Smoking Status: Former smoker Tobacco Type: Cigarettes packs per day: 1; Years Smoked: 23; Second Hand Exposure: No; Do You Dip or Chew Tobacco: No; Tobacco Cessation Education Requested by Patient: No Hx Alcohol Use: No Hx Substance Use: No Preferred Language: Cymro Communication Ability: Effective Anthropology Instructor Required: No Beliefs That Will Affect Care: None marital status: Current Living Situation: Spouse How many Children do You have: 2 Feels Safe at Home: Yes Safety Concerns: Feels Safe At This Time Assistive Devices: Glasses Review of Systems Constitutional: as per Subjective / HPI Physical Exam Physical Exam: Right knee-No erythema or discolorations, No significant joint effusion. Mild discomfort with passive ROM but has full motion -0-135 degrees of flexion. Tenderness anteriorly over patellar tendon, mild lateral joint line tenderness. No tenderness medial joint line. No tenderness medial or lateral patellar facet. No calf tenderness. Mignon's equivocal. Stable to valgus and varus stress tests, negative umm's. No patellar apprehension Constitutional: well developed and well nourished; no acute distress Respiratory: normal respiratory effort Cardiovascular: Rate/Rhythm: regular rate and regular rhythm Skin: no rashes, warm and dry Psychiatric: A+Ox3, euthymic affect Results & Data ([facility]) Vital Signs (Past 12 Hours) Vital Signs Temp Pulse Resp BP Pulse Ox 08/17/20 23:36 37 C 93 H 16 103/67 94 Diagnostic Findings XR knee RT 1 or 2V routine HISTORY: 45 years-old Female knee pain . Acute right-sided knee pain COMPARISON: Right knee radiographs 06/19/2020 TECHNIQUE: 2 views of the right knee FINDINGS: No acute fracture, dislocation or significant osteoarthritis. Trace joint effusion. Unremarkable soft tissues. IMPRESSION: Trace joint effusion without acute fracture. (1) Right knee pain Chronicity: unspecified Qualified Code(s): M25.561 - Pain in right knee
[2020-08-18] MEDS: DOCUSATE SODIUM/SENNA 50/8.6MG TAB PO SCH ×2 (08:07→21:27)
[2020-08-18] MEDS: DOCUSATE SODIUM 100 MG CAP PO SCH ×2 (08:07→21:26)
[2020-08-18] MEDS: MoRPHine SULFATE CR 15 MG TABCR PO SCH ×2 (08:07→21:25)
[2020-08-18] MEDS: FOLIC ACID 1 MG TAB PO SCH (08:07)
[2020-08-18] MEDS: levETIRAcetam 500 MG TAB PO SCH ×2 (08:07→21:27)
[2020-08-18] MEDS: POTASSIUM CHLORIDE 40 MEQ in SODIUM CHLORIDE 0.9% 500 ML IV SCH ×2 (09:57→13:51)
[2020-08-18] MEDS: LORazepam 0.5 MG TAB PO PRN (11:45)
--- NOTE | 2020-08-18 14:40 | Hospitalist Progress Note ---
Date of Service August 18, 2020 Assessment & Plan (1) Weakness: 2/2 recent chemotherapy and progressed cancer with metastatic disease. Cont to provide supportive care. There was a question of possible sepsis with an elevated procalcitonin, however, there is no current source of infection p resent. Cefepime will be stopped. Her procalcitonin is likely related to her lung cancer which can cause a false elevation of this. (2) Acute dehydration: Prob due to poor PO intake with post-chemotherapy nausea and food apathy. She is tolerating PO, cont suppportive care (3) Hypokalemia: Pt cannot tolerate oral potassium IV replacement today. (4) Hypomagnesemia: Likely related to Keytruda therapy and contributes to low potassium along with poor PO intake. (5) Metastatic adenocarcinoma to brain: She was taken off Decadron 4mg BID on Thursday, 08/13 by her [facility] Rad Oncologist. Doing well at this time. No gross focal deficits and mentating well. (6) Right knee pain: nontraumatic right knee pain, recurrent, uncertain what triggers this. Reports that a recent xray was performed 07/18 revealing no appreciable cortical/osseous destruction. Appreciate ortho recs. Injection declined at this time and knee ROM has spontaneously improved. (7) Cancer related pain: Continue home narcotic therapy as needed (8) Seizure disorder: Cont Keppra per home regimen. (9) DVT prophylaxis: Lovenox stopped in setting of brain mets/cont SCDs/ambulation Full Code Dispo-to home when feeling better. Lona Clark DO [facility] Hospitalist Admission and Anticipated Discharge Date Admission Date: August 17, 2020 Subjective 45 yo BRCA+ breast cancer patient with lung cancer and mets to brain Still reporting generalized malaise Electrolytes low no vomiting, some nausea knee pain has resolved ambulating tolerating PO placed back on tele for monitoring while on potassium replacement. Review of Systems Review of Systems: All systems reviewed & are unremarkable except as noted in Subjective Physical Exam Physical Exam: CONSTITUTIONAL: WNWD, vitals as above, generally well- appearing EYES: normal conjunctivae, no scleral icterus ENT: external ear and nose normal, MMM RESPIRATORY: clear to auscultation bilaterally, no crackles, rales or wheezes, normal respiratory effort CARDIOVASCULAR: regular rate and rhythm, S1 and 2 heard without murmurs, gallops or rubs, no JVD, no peripheral edema GASTROINTESTINAL: soft, nontender, nondistended, no guarding MUSCULOSKELETAL: strength 5/5 throughout, head is normocephalic and atraumatic RIGHT KNEE: normal ROM demonstrated, some numbness superolateral to knee SKIN: warm and dry NEUROLOGIC: CN 2-12 grossly intact, normal cognition, normal speech, no gross focal deficits. PSYCHIATRIC: alert cooperative and oriented to person, place and time. Results & Data Results & Data ([facility]) Vital Signs (Past 12 Hours) Vital Signs Temp Pulse Pulse Resp BP Pulse Ox 08/18/20 11:48 90 08/18/20 08:07 36.9 C 90 18 95/61 L 94 Laboratory Results BMP 08/18/20 05:58 Sodium 138 Potassium 2.8 L Chloride 104 Carbon Dioxide 28 BUN 2 L Creatinine 0.47 L Glucose 81 Calcium 8.4 L Medications Administered Current Inpatient Medications Acetaminophen (Acetaminophen 325 Mg Tab) 650 mg PO Q4H PRN PRN Reason: Pain or Fever Stop: 09/15/20 17:23 Al Hydrox/Mg Hydrox/Simethicone (Aluminum/Magnesium Susp 30 Ml Udc) 15 ml PO Q4H PRN PRN Reason: Dyspepsia Stop: 09/15/20 17:23 Docusate Sodium (Docusate Sodium 100 Mg Cap) 100 mg PO BID [facility] Stop: 09/15/20 20:59 Last Admin: 08/18/20 08:07 Dose: 100 mg Documented by: Folic Acid (Folic Acid 1 Mg Tab) 1 mg PO QAM [facility] Stop: 09/16/20 08:59 Last Admin: 08/18/20 08:07 Dose: 1 mg Documented by: Heparin Sodium (Porcine) (Heparin 100 Unit/Ml 5ml Flush) 5 ml FLUSH PRN PRN PRN Reason: Flush Stop: 09/15/20 23:27 Cefepime HCl 2,000 mg/ Syringe 20 mls @ 5 mls/min IV Q12H [facility]; Protocol Stop: 08/18/20 17:59 Last Admin: 08/18/20 05:32 Dose: 5 mls/min Documented by: Potassium Chloride 40 meq/ (Sodium Chloride) 520 mls @ 130 mls/hr IV .Q4H [facility] Stop: 08/18/20 17:14 Last Admin: 08/18/20 13:51 Dose: 130 mls/hr Documented by: Levetiracetam (Levetiracetam 500 Mg Tab) 1,500 mg PO BID [facility] Stop: 09/15/20 20:59 Last Admin: 08/18/20 08:07 Dose: 1,500 mg Documented by: Lorazepam (Lorazepam 0.5 Mg Tab) 0.5 mg PO Q8H PRN PRN Reason: Anxiety Stop: 09/15/20 17:23 Last Admin: 08/18/20 11:45 Dose: 0.5 mg Documented by: Magnesium Hydroxide (Magnesium Hydroxide Susp 30 Ml Udc) 30 ml PO Q12H PRN PRN Reason: Constipation Stop: 09/15/20 17:23 Last Admin: 08/18/20 08:07 Dose: 30 ml Documented by: Miscellaneous Information (Cefepime Consult Active) 1 ea N/A UD PRN PRN Reason: Consult Stop: 09/15/20 14:57 Morphine Sulfate (Morphine Sulfate Cr 15 Mg Tabcr) 15 mg PO Q12@0800,1999 [facility] Stop: 08/30/20 19:59 Last Admin: 08/18/20 08:07 Dose: 15 mg Documented by: Ondansetron HCl (Ondansetron Inj 2 Mg/Ml 2 Ml Vial) 4 mg IV Q6H PRN PRN Reason: Nausea Stop: 09/15/20 17:23 Ondansetron HCl (Ondansetron 8mg Od Tab) 8 mg PO Q8H PRN PRN Reason: Nausea Stop: 09/15/20 17:23 Oxycodone HCl (Oxycodone Hcl Ir 5 Mg Tab (Immediate Release)) 5 mg PO Q6H PRN PRN Reason: Pain, Severe Stop: 08/30/20 17:37 Last Admin: 08/18/20 01:53 Dose: 5 mg Documented by: Polyethylene Glycol (Polyethylene (Miralax) 17 Gm Pack) 17 gm PO QID PRN PRN Reason: Constipation Stop: 09/15/20 17:23 Prochlorperazine (Prochlorperazine Maleate 10 Mg Tab) 10 mg PO Q6H PRN PRN Reason: Nausea Stop: 09/15/20 17:23 Senna/Docusate Sodium (Docusate Sodium/Senna 50/8.6mg Tab) 1 tab PO BID [facility] Stop: 09/15/20 20:59 Last Admin: 08/18/20 08:07 Dose: 1 tab Documented by: (1) Right knee pain Chronicity: unspecified Qualified Code(s): M25.561 - Pain in right knee
[2020-08-19 06:13] LABS: Hematocrit (blood only) 26.9 % (37-47); Hemoglobin 9.3 g/dL (12.0-16.0); Mean Corpuscular Hemoglobin 29.3 pg (25-34); Mean Corpuscular Hgb Conc 34.6 g/dL (32-36); Mean Corpuscular Volume 84.9 fL (80-100); Mean Platelet Volume 9.5 fL (7.4-10.4); Platelet Count 155 K/uL (130-400); RDW Coefficient of Variation 14.1 % (11.5-14.5); RDW Standard Deviation 44.3 fL (36.4-46.3); Red Blood Count 3.17 M/uL (4.2-5.4); White Blood Count 3.69 K/uL (4.8-10.8)
[2020-08-19 06:49] LABS: BUN Creatinine Ratio 4.3 (10-20); Blood Urea Nitrogen 1 mg/dl (7-18); Calcium 8.4 mg/dl (8.5-10.1); Carbon Dioxide 28 mmol/L (21-32); Chloride 104 mmol/L (98-107); Creatinine Clr Calc Pharmacy 229.7 ml/min; Est GFR (African American) > 150.0; Est GFR (Non-African American) 133.6; Glucose 81 mg/dl (70-99); Magnesium 1.6 mg/dl (1.8-2.4); Sodium 138 mmol/L (136-145)
[2020-08-19] MEDS: FOLIC ACID 1 MG TAB PO SCH (07:50)
[2020-08-19] MEDS: MoRPHine SULFATE CR 15 MG TABCR PO SCH ×2 (07:50→19:58)
[2020-08-19] MEDS: DOCUSATE SODIUM 100 MG CAP PO SCH ×2 (07:50→19:58)
[2020-08-19] MEDS: levETIRAcetam 500 MG TAB PO SCH ×2 (07:50→19:59)
[2020-08-19] MEDS: DOCUSATE SODIUM/SENNA 50/8.6MG TAB PO SCH ×2 (07:51→20:03)
--- NOTE | 2020-08-19 08:56 | Hospitalist Progress Note ---
Date of Service August 19, 2020 Assessment & Plan (1) Weakness: 2/2 recent chemotherapy and progressed cancer with metastatic disease. Cont to provide supportive care. There was a question of possible sepsis with an elevated procalcitonin, however, there is no current source of infection p resent. Doing well since cefepime stopped yesterday. Her procalcitonin is likely related to her lung cancer which can cause a false elevation of this. (2) Acute dehydration: Prob due to poor PO intake with post-chemotherapy nausea and food apathy. She is tolerating PO, cont suppportive care (3) Hypokalemia: Pt cannot tolerate oral potassium IV replacement today. (4) Hypomagnesemia: Likely related to Keytruda therapy and contributes to low potassium along with poor PO intake. Replace again today with potassium. Start her on oral potassium supplementation (5) Metastatic adenocarcinoma to brain: She was taken off Decadron 4mg BID on Thursday, 08/13 by her [facility] Rad Oncologist. Doing well at this time. No gross focal deficits and mentating well. (6) Right knee pain: nontraumatic right knee pain, recurrent, uncertain what triggers this. Reports that a recent xray was performed 07/18 revealing no appreciable cortical/osseous destruction. Appreciate ortho recs. Injection declined at this time and knee ROM has spontaneously improved. (7) Cancer related pain: Continue home narcotic therapy as needed (8) Seizure disorder: Cont Keppra per home regimen. (9) Antineoplastic chemotherapy induced pancytopenia: (10) DVT prophylaxis: Lovenox stopped in setting of brain mets/cont SCDs/ambulation Full Code Dispo-to home when feeling better. Lona Clark DO [facility] Hospitalist Admission and Anticipated Discharge Date Admission Date: August 17, 2020 Subjective 45 yo BRCA+ breast cancer patient with lung cancer and mets to brain Still reporting generalized malaise Electrolytes low constipated Review of Systems Review of Systems: All systems reviewed & are unremarkable except as noted in Subjective Physical Exam Physical Exam: CONSTITUTIONAL: WNWD, vitals as above, generally well- appearing EYES: normal conjunctivae, no scleral icterus ENT: external ear and nose normal, MMM RESPIRATORY: clear to auscultation bilaterally, no crackles, rales or wheezes, normal respiratory effort CARDIOVASCULAR: regular rate and rhythm, S1 and 2 heard without murmurs, gallops or rubs, no JVD, no peripheral edema GASTROINTESTINAL: soft, nontender, nondistended, no guarding MUSCULOSKELETAL: strength 5/5 throughout, head is normocephalic and atraumatic RIGHT KNEE: normal ROM demonstrated, some numbness superolateral to knee SKIN: warm and dry NEUROLOGIC: CN 2-12 grossly intact, normal cognition, normal speech, no gross focal deficits. PSYCHIATRIC: alert cooperative and oriented to person, place and time. Results & Data Results & Data ([facility]) Vital Signs (Past 12 Hours) Vital Signs Temp Pulse Pulse Resp BP BP Pulse Ox 08/19/20 07:31 37.0 C 96 H 18 86/56 L 94 08/19/20 03:43 36.8 C 95 H 17 99/65 L 93 08/19/20 01:32 80 08/18/20 22:06 37.3 C 89 20 95/62 L 95 Laboratory Results Short CBC 08/19/20 Range/Units 05:56 WBC 3.69 L (4.8-10.8) K/uL Hgb 9.3 L (12.0-16.0) g/dL Hct 26.9 L (37-47) % Plt Count 155 (130-400) K/uL BMP 08/19/20 05:56 Sodium 138 Potassium 3.0 L Chloride 104 Carbon Dioxide 28 BUN 1 L Creatinine 0.34 L Glucose 81 Calcium 8.4 L Medications Administered Current Inpatient Medications Acetaminophen (Acetaminophen 325 Mg Tab) 650 mg PO Q4H PRN PRN Reason: Pain or Fever Stop: 09/15/20 17:23 Al Hydrox/Mg Hydrox/Simethicone (Aluminum/Magnesium Susp 30 Ml Udc) 15 ml PO Q4H PRN PRN Reason: Dyspepsia Stop: 09/15/20 17:23 Docusate Sodium (Docusate Sodium 100 Mg Cap) 100 mg PO BID [facility] Stop: 09/15/20 20:59 Last Admin: 08/19/20 07:50 Dose: 100 mg Documented by: Folic Acid (Folic Acid 1 Mg Tab) 1 mg PO QAM [facility] Stop: 09/16/20 08:59 Last Admin: 08/19/20 07:50 Dose: 1 mg Documented by: Heparin Sodium (Porcine) (Heparin 100 Unit/Ml 5ml Flush) 5 ml FLUSH PRN PRN PRN Reason: Flush Stop: 09/15/20 23:27 Potassium Chloride 40 meq/Magnesium Sulfate 2 gm/ Sodium Chloride 524 mls @ 131 mls/hr IV .Q4H [facility] Stop: 08/19/20 16:59 Levetiracetam (Levetiracetam 500 Mg Tab) 1,500 mg PO BID [facility] Stop: 09/15/20 20:59 Last Admin: 08/19/20 07:50 Dose: 1,500 mg Documented by: Lorazepam (Lorazepam 0.5 Mg Tab) 0.5 mg PO Q8H PRN PRN Reason: Anxiety Stop: 09/15/20 17:23 Last Admin: 08/18/20 11:45 Dose: 0.5 mg Documented by: Magnesium Hydroxide (Magnesium Hydroxide Susp 30 Ml Udc) 30 ml PO Q12H PRN PRN Reason: Constipation Stop: 09/15/20 17:23 Last Admin: 08/18/20 08:07 Dose: 30 ml Documented by: Miscellaneous Information (Cefepime Consult Active) 1 ea N/A UD PRN PRN Reason: Consult Stop: 09/15/20 14:57 Morphine Sulfate (Morphine Sulfate Cr 15 Mg Tabcr) 15 mg PO Q12@0800,2000 [facility] Stop: 08/30/20 19:59 Last Admin: 08/19/20 07:50 Dose: 15 mg Documented by: Ondansetron HCl (Ondansetron Inj 2 Mg/Ml 2 Ml Vial) 4 mg IV Q6H PRN PRN Reason: Nausea Stop: 09/15/20 17:23 Ondansetron HCl (Ondansetron 8mg Od Tab) 8 mg PO Q8H PRN PRN Reason: Nausea Stop: 09/15/20 17:23 Oxycodone HCl (Oxycodone Hcl Ir 5 Mg Tab (Immediate Release)) 5 mg PO Q6H PRN PRN Reason: Pain, Severe Stop: 08/30/20 17:37 Last Admin: 08/18/20 22:06 Dose: 5 mg Documented by: Polyethylene Glycol (Polyethylene (Miralax) 17 Gm Pack) 17 gm PO QID PRN PRN Reason: Constipation Stop: 09/15/20 17:23 Last Admin: 08/19/20 07:51 Dose: 17 gm Documented by: Prochlorperazine (Prochlorperazine Maleate 10 Mg Tab) 10 mg PO Q6H PRN PRN Reason: Nausea Stop: 09/15/20 17:23 Senna/Docusate Sodium (Docusate Sodium/Senna 50/8.6mg Tab) 1 tab PO BID [facility] Stop: 09/15/20 20:59 Last Admin: 08/19/20 07:51 Dose: 1 tab Documented by: (1) Right knee pain Chronicity: unspecified Qualified Code(s): M25.561 - Pain in right knee
[2020-08-19] MEDS: SODIUM CHLORIDE 0.9% IV SCH ×2 (10:32→14:19)
[2020-08-19] MEDS: POTASSIUM CHLORIDE IV SCH ×2 (10:32→14:19)
[2020-08-19] MEDS: MAGNESIUM SULFATE IV SCH ×2 (10:32→14:19)
[2020-08-19] MEDS: oxyCODONE HCL IR 5 MG TAB (IMMEDIATE RELEASE) PO PRN ×2 (10:35→21:12)
[2020-08-19] MEDS: MAGNESIUM OXIDE 400 MG TAB PO SCH (20:00)
[2020-08-20] MEDS: MAGNESIUM OXIDE 400 MG TAB PO SCH ×2 (08:43→20:37)
[2020-08-20] MEDS: levETIRAcetam 500 MG TAB PO SCH ×2 (08:43→20:37)
[2020-08-20] MEDS: DOCUSATE SODIUM 100 MG CAP PO SCH ×3 (08:43→20:37)
[2020-08-20] MEDS: DOCUSATE SODIUM/SENNA 50/8.6MG TAB PO SCH ×3 (08:43→20:38)
[2020-08-20] MEDS: FOLIC ACID 1 MG TAB PO SCH (08:44)
[2020-08-20] MEDS: MoRPHine SULFATE CR 15 MG TABCR PO SCH ×2 (08:47→20:37)
--- NOTE | 2020-08-20 11:38 | Hospitalist Progress Note ---
Date of Service August 20, 2020 Assessment & Plan (1) Weakness: 2/2 recent chemotherapy and progressed cancer with metastatic disease. Patient reports he continues to feel weak and fatigue. Have been afebrile. CBC/BMP mostly unremarkable except electrolyte abnormalities as stated below. Reports her appetite has been okay. Blood and urine cultures have been negative thus far. We will continue supportive management at this point. (2) Acute dehydration: Renal function is not concerning. Intake has been good. However, patient remains hypotensive. Will obtain random cortisol level and AM cortisol levels. (3) Hypokalemia: Today at 3, repleted, obtain bmp daily. (4) Hypomagnesemia: Likely related to Keytruda therapy and contributes to low potassium along with poor PO intake. Mg today at 1.6, repleted. C/W Max-Ox 400 mg BID (5) Metastatic adenocarcinoma to brain: She was taken off Decadron 4mg BID on Thursday, 08/13 by her [facility] Rad Oncologist. Doing well at this time. No gross focal deficits and mentating well. (6) Right knee pain: nontraumatic right knee pain Appreciate orthopedics input. Steroid injection therapy was offered but orthopedics however patient refused for the time being since her pain resolved. (7) Cancer related pain: Continue home narcotic therapy as needed (8) Seizure disorder: Cont Keppra per home regimen. (9) Antineoplastic chemotherapy induced pancytopenia: (10) DVT prophylaxis: Lovenox stopped in setting of brain mets/cont SCDs/ambulation Full Code Dispo-to home when feeling better. Admission and Anticipated Discharge Date Admission Date: August 17, 2020 Subjective Patient reports she continues to feel miserable. Reports she feels weak. Her appetite is okay though. Denies any chest pain or shortness of breath. Denies any nausea or vomiting. Denies any abdominal pain or diarrhea. She is tearful and states that she does not have the energy and feels weak. Review of Systems Review of Systems: All systems reviewed & are unremarkable except as noted in HPI & below Physical Exam Physical Exam: General: A&Ox3. tearful HENT: NCAT, MMM, EOMI Eyes: PERRLA Neck: Supple, normal range of motion CVS: normal rate and rhythm Resp: b/l good breath sounds Abdomen: Soft, ND/NT, +BS Extremities: No c/c/e Neuro: face symmetric, strength grossly equal, no focal deficit Skin: warm and dry, no rashes/lesions/errythema MSK: normal ROM, no joint swelling/erythema Results & Data Results & Data ([facility]) Vital Signs (Past 12 Hours) Vital Signs Temp Pulse Pulse Resp BP Pulse Ox 08/20/20 11:25 37.0 C 89 18 96/63 L 96 08/20/20 09:03 37 C 87 20 89/59 L 97 08/20/20 07:41 76 08/20/20 03:06 83 (1) Right knee pain Chronicity: unspecified Qualified Code(s): M25.561 - Pain in right knee
[2020-08-20] MEDS: LORazepam 0.5 MG TAB PO PRN (21:27)
[2020-08-21] MEDS: MAGNESIUM OXIDE 400 MG TAB PO SCH (07:48)
[2020-08-21] MEDS: levETIRAcetam 500 MG TAB PO SCH (07:49)
[2020-08-21] MEDS: FOLIC ACID 1 MG TAB PO SCH (07:49)
[2020-08-21] MEDS: DOCUSATE SODIUM/SENNA 50/8.6MG TAB PO SCH (07:50)
[2020-08-21] MEDS: DOCUSATE SODIUM 100 MG CAP PO SCH (07:50)
[2020-08-21] MEDS: MoRPHine SULFATE CR 15 MG TABCR PO SCH (07:53)
[2020-08-21] MEDS ORDERED: SODIUM CHLORIDE 0.9% 1000ML 1,000 ML IV SCH (09:15)
[2020-08-21 09:42] LABS: Albumin Level 2.8 gm/dl (3.4-5.0); Creatinine Clr Calc Pharmacy 195.3 ml/min; Est GFR (African American) 146.8; Est GFR (Non-African American) 126.7; Potassium 3.1 mmol/L (3.5-5.1)
[2020-08-21 09:45] LABS: Albumin Globulin Ratio 0.9 (0.9-2); Bilirubin,Total 0.6 mg/dl (0.2-1); Globulin 3.3 gm/dl (2.5-4.0); Total Protein 6.1 gm/dl (6.4-8.2)
[2020-08-21] MEDS: LORazepam 0.5 MG TAB PO PRN ×2 (10:15→19:20)
[2020-08-21] MEDS ORDERED: POTASSIUM CHLORIDE CRTAB 20 MEQ TABCR PO STA (10:19)
[2020-08-21 10:21] LABS: Eosinophils # (auto) 0.03 K/uL (0-0.5); Eosinophils % (auto) 0.7 %; Hematocrit (blood only) 26.8 % (37-47); Hemoglobin 9.4 g/dL (12.0-16.0); Lymphocytes # (auto) 0.93 K/uL (1.2-3.4); Lymphocytes % (auto) 22.7 %; Mean Corpuscular Hemoglobin 29.9 pg (25-34); Mean Corpuscular Hgb Conc 35.1 g/dL (32-36); Mean Corpuscular Volume 85.4 fL (80-100); Mean Platelet Volume 8.8 fL (7.4-10.4); Monocytes # (auto) 0.56 K/uL (0.11-0.59); Monocytes % (auto) 13.7 %; Neutrophils # (auto) 2.57 K/uL (1.4-6.5); Neutrophils % (auto) 62.9 %; Platelet Count 111 K/uL (130-400); RDW Coefficient of Variation 14.3 % (11.5-14.5); RDW Standard Deviation 44.6 fL (36.4-46.3); Red Blood Count 3.14 M/uL (4.2-5.4); White Blood Count 4.09 K/uL (4.8-10.8)
--- NOTE | 2020-08-21 13:13 | Hospitalist Progress Note ---
Date of Service August 21, 2020 Assessment & Plan (1) Weakness: 2/2 recent chemotherapy and progressed cancer with metastatic disease. Patient reports she continues to feel weak and fatigue. Have been afebrile. CBC/BMP mostly unremarkable except electrolyte abnormalities as stated below. Mild leukopenia noted, improving. Blood and urine cultures have been negative thus far. Will continue supportive management at this point. (2) Acute dehydration: Renal function is not concerning. Intake has been good. However, patient remains hypotensive. Random cortisol level and a.m. cortisol will remains okay. I suspect is possibly medication induced in the setting of MS Contin. Transthoracic echo obtained today without any concerns. Started on maintenance IVFs today. (3) Hypokalemia: Today at 3, repleted, obtain bmp daily. (4) Hypomagnesemia: Likely related to Keytruda therapy and contributes to low potassium along with poor PO intake. Mg today at 1.6, repleted. C/W Max-Ox 400 mg BID (5) Metastatic adenocarcinoma to brain: She was taken off Decadron 4mg BID on Thursday, 08/13 by her [facility] Rad Oncologist. Doing well at this time. No gross focal deficits and mentating well. Was paged by [facility] - oncology today regardig the chemo scheudled for tomorror around noon. [id number]. Patient electrolytes are improved and hypertension, can likely be discharged. However, patient is refusing to take p.o. potassium and I suspect it will further continue to be worse. (6) Right knee pain: nontraumatic right knee pain Appreciate orthopedics input. Steroid injection therapy was offered but orthopedics however patient refused for the time being since her pain resolved. (7) Cancer related pain: Continue home narcotic therapy as needed (8) Seizure disorder: Cont Keppra per home regimen. (9) Antineoplastic chemotherapy induced pancytopenia: (10) DVT prophylaxis: Lovenox stopped in setting of brain mets/cont SCDs/ambulation Full Code Dispo-to home when feeling better. Admission and Anticipated Discharge Date Admission Date: August 17, 2020 Subjective Continues to feel weak and dizzy. Reports she has been forcing to eat. Continues to have abdominal pain. Have been taking MS Contin. Review of Systems Review of Systems: All systems reviewed & are unremarkable except as noted in HPI & below Physical Exam Physical Exam: General: A&Ox3. tearful HENT: NCAT, MMM, EOMI Eyes: PERRLA Neck: Supple, normal range of motion CVS: normal rate and rhythm Resp: b/l good breath sounds Abdomen: Soft, ND/NT, +BS Extremities: No c/c/e Neuro: face symmetric, strength grossly equal, no focal deficit Skin: warm and dry, no rashes/lesions/errythema MSK: normal ROM, no joint swelling/erythema Results & Data Results & Data ([facility]) Vital Signs (Past 12 Hours) Vital Signs Temp Pulse Pulse Resp BP Pulse Ox 08/21/20 11:31 36.8 C 87 20 91/64 L 96 08/21/20 07:50 36.8 C 92 H 18 80/51 L 95 08/21/20 07:17 80 08/21/20 01:49 75 (1) Right knee pain Chronicity: unspecified Qualified Code(s): M25.561 - Pain in right knee
[2020-08-21] MEDS ORDERED: POTASSIUM PHOS 3 MMOL/1 ML INFUSION IV STA (15:59)
--- NOTE | 2020-08-21 16:12 | Discharge Summary ---
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 Of significance she recently started on cycle 2 of chemotherapy carboplatin and Keytruda on 08/10. 2 days post chemotherapy she developed significant nausea and inability to tolerate p.o. intake. Her p.o. intake over the past 5 days has been very minimal and poor including liquids. She did have brain mapping done this week and is scheduled to start whole brain radiation next Thursday. Her is at bedside and states, "if only she can eat I think she would not be as weak." She denies any fever, chills, sweats, lightheadedness, dizziness, chest pain, shortness of breath, palpitations, abdominal pain, emesis, diarrhea, melena or medic easier. She does have a chronic cough secondary to lung cancer but this is unchanged. She has also been constipated and has not had a bowel movement in 6 days. Normal for her is 5 days. She admits to being lightheaded and dizzy with movement. She was seen and eval by PCP yesterday for similar sx. She was offered IVF in office but declined. She thought about coming to ED then due to hypokalemia. Of significance patient recently hospitalized 08/04-06/26 breakthrough seizure. She underwent MRI which revealed increasing metastatic lesions and therefore plan is to undergo whole brain radiation therapy. She was recently taken off her Decadron therapy. In ED patient initially was hypotensive and tachycardic. She received 2 L of IV fluid and 2K riders. She did have improvement in hemodynamics. She did not meet SIRS/SEpsis critiera. She did have elevated esr/crp, procalcitonin, and LFTS. No infectious source detected in ED. Admission Exam Per Admitting Provider Constitutional: WD/WN, vitals as above, NAD, sitting up in bed, pleasant, conversing easily Head: Normocephalic, Atraumatic Eyes: PERRL, conjunctivae normal, anicteric sclerae ENMT: external ear and nose normal, oropharynx normal Neck: trachea midline, no thyromegaly normal visual inspection Respiratory: normal respiratory effort, lungs clear to auscultation, no wheeze, rales, rhonchi. Normal insp/exp effort, no accessory muscle use Cardiovascular: RRR, no murmur, no edema Vessels: no JVD or carotid bruit Chest: Port to LACW, normal inspection of chest Abdomen: normal bowel sounds, soft, nontender, no hepatosplenomegaly Musculoskeletal: no cyanosis or clubbing, extremities motor strength 5/5 Skin: no rashes, warm and dry normal turgor Neurologic: PERRL, EOMI, accommodation nl, no face palsy, no dysarthria CN's II-XI intact bilaterally and moves all extremities Psychiatric: A+Ox3, euthymic affect Lymphatic: no cervical or axillary lymphadenopathy : deferred Principal Diagnosis Generalized weakness Discharge Exam General: A&Ox3. tearful HENT: NCAT, MMM, EOMI Eyes: PERRLA Neck: Supple, normal range of motion CVS: normal rate and rhythm Resp: b/l good breath sounds Abdomen: Soft, ND/NT, +BS Extremities: No c/c/e Neuro: face symmetric, strength grossly equal, no focal deficit Skin: warm and dry, no rashes/lesions/errythema MSK: normal ROM, no joint swelling/erythema Discharge Data Allergies Allergy/AdvReac Type Severity Reaction Status Date / Time Penicillins Allergy Intermediate Swelling Verified 08/16/20 10:01 Consultations 08/16/20 13:51 ED Decision to Admit Stat 08/17/20 16:10 Consult Orthopedic Surgery Routine Ordered Studies 08/16/20 15:09 US abdomen limited Routine Hospital Course (1) Weakness: 2/2 recent chemotherapy and progressed cancer with metastatic disease. Patient reports she continues to feel weak and fatigue. Have been afebrile. CBC/BMP mostly unremarkable except electrolyte abnormalities as stated below. Mild leukopenia noted, improving. Blood and urine cultures have been negative thus far. Will continue supportive management at this point. (2) Acute dehydration: Renal function is not concerning. Intake has been good. However, patient remains hypotensive. Random cortisol level and a.m. cortisol will remains okay. I suspect is possibly medication induced in the setting of MS Contin. Transthoracic echo obtained today without any concerns. Started on maintenance IVFs today. (3) Hypokalemia: Today at 3, repleted, obtain bmp daily. (4) Hypomagnesemia: Likely related to Keytruda therapy and contributes to low potassium along with poor PO intake. Mg today at 1.6, repleted. C/W Max-Ox 400 mg BID (5) Metastatic adenocarcinoma to brain: She was taken off Decadron 4mg BID on Thursday, 08/13 by her [facility] [place] Rad Oncologist. Doing well at this time. No gross focal deficits and mentating well. Was paged by [facility] - oncology today regardig the chemo scheudled for tomorror around noon. [phone]. Patient remains persistently hypotensive. Not medically ready for discharge. Plan was made to transfer patient to [facility] [place] for her scheduled radiation treatment. Patient was accepted by [facility] [place] on 08/21/2020. (6) Right knee pain: nontraumatic right knee pain Appreciate orthopedics input. Steroid injection therapy was offered but orthopedics however patient refused for the time being since her pain resolved. (7) Cancer related pain: Continue home narcotic therapy as needed (8) Seizure disorder: Cont Keppra per home regimen. (9) Antineoplastic chemotherapy induced pancytopenia: Total Time Total Time Spent Total Time Spent (In Minutes): 35 Discharge Plan Discharge Items Reason For Visit: METASTATIC ADENOCA OF LUNG, WEAKNESS, LOW POTASSIU Condition on Discharge: Good Medications and DC Order Prescriptions: No Action folic acid 1 mg Tablet 1 mg PO QAM RF: 0 ondansetron 8 mg Tablet,Disintegrating 8 mg PO Q8H PRN (Reason: Nausea) RF: 0 prochlorperazine maleate 10 mg Tablet 10 mg PO Q6H PRN (Reason: Nausea) RF: 0 morphine 15 mg Tablet Extended Release 15 mg PO Q12H Qty: 60 RF: 0 polyethylene glycol 3350 [Miralax] 17 gram powder in packet 17 g PO QID PRN (Reason: Constipation) RF: 0 sennosides-docusate sodium [Senokot-S] 8.6-50 mg tablet 1 tab PO BID PRN (Reason: Constipation) RF: 0 docusate sodium 100 mg capsule 100 mg PO BID PRN (Reason: Constipation) RF: 0 oxycodone 5 mg tablet 5 mg PO Q6H PRN (Reason: Pain, Severe) RF: 0 lorazepam 0.5 mg tablet 0.5 mg PO Q8H PRN (Reason: Anxiety) RF: 0 lorazepam [Ativan] 1 mg tablet 1 mg sublingual TID PRN (Reason: anxiety) Qty: 30 RF: 0 potassium chloride 20 mEq/15 mL liquid 20 meq PO DAILY Qty: 1200 RF: 0 levetiracetam 500 mg tablet 1,500 mg PO BID RF: 0 carboplatin 150 mg Recon Soln 750 mg IV UD RF: 0 Keytruda 25 mg/mL Solution 200 mg IV UD RF: 0 Admission Data Admit Date/Time: 08/17/20 15:31 Attending Provider: Lilly Albright Admit Provider: Lilly Albright Primary Care Provider: Jasiel Fritz Other Providers: Vickey Mcgregor
[2020-08-21] MEDS ORDERED: POTASSIUM PHOSPHATE 21 MMOL in SODIUM CHLORIDE 0.9% 500 ML IV ONE (16:15)
== END 2020-08-21 20:01 | disposition short-term general hospital (02) | DRG 640 ==
LOC: ED 09:01 → 2W 09:01 → SUATTDRO 14:07 → 2W 16:55 → SUATTDRO 08-17 15:31

== ENCOUNTER 2020-08-27 07:43 | Inpatient (IN) ==
[2020-08-27] MEDS ORDERED: SODIUM CHLORIDE 0.9% 1000ML 1,000 ML IV SCH (08:15)
[2020-08-27] MEDS ORDERED: MIDODRINE HCL 10 MG TAB PO ONE (08:16)
--- NOTE | 2020-08-27 08:28 | Emergency Department Note ---
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 Patient reports that she was started on midodrine medication to help with some of her blood pressure and her steroid restarted and she was discharged home approximately 2 days ago. She states this morning she woke up and feels very lightheaded even laying in bed. Patient states that she has not passed out but feels like she is going to. States her chronic pain is fairly well controlled at a 3 or 4 out of 10 with her home medications. Did take her dexamethasone this morning but has not yet taken her morning Keppra midodrine. Denies significant shortness of breath or fevers. Denies new focal numbness or weakness or recurrence of seizures. Patient states that at times she seems to get a get worked up and may transiently feel little shortness of breath but this quickly resolves when she tells her self to calm down. Patient states that she understands she has a difficult diagnosis and prognosis but is in the understanding she has several years to deal with this and live and does not believe she can feel like this at home. Patient denies any trauma or falls. REVIEW OF SYSTEMS: A total of 10 review of systems was obtained and negative except as stated above in the HPI. PAST MEDICAL HISTORY: As noted above MEDICATIONS: Reviewed home medication list including recent discharge medications of dexamethasone taper and midodrine SOCIAL HISTORY: , former tobacco use PHYSICAL EXAM: GENERAL: alert and oriented in no acute distress on stretcher Head: normocephalic and atraumatic EYES: No injection, discharge or icterus. NECK: Trachea midline. Supple. ENT: Mucous membranes pink and moist. LUNGS: Airway patent. No retractions. Breath sounds clear with good air entry bilaterally. HEART: Regular rate and rhythm. No chest wall tenderness with a left upper chest wall port in place ABDOMEN: Soft and non-tender, without guarding or rebound. SKIN: Acyanotic, warm, dry, without rashes EXTREMITIES: Without swelling, tenderness or deformity NEUROLOGICAL: No focal deficits. No aphasia. No facial droop or slurred speech. Normal strength and tone in the extremities. Sensation to gross touch normal in extremities Psych: The patient is somewhat anxious and tearful during exam EK bpm sinus rhythm without PVC or PAC. Right axis noted without acute ST segment elevation or depression. Normal QTC. Compared to previous from August 16 of this year heart rate is decreased but no other significant change. CONTINUOUS CARDIAC MONITORING: was ordered and showed a heart rate of 50s-70s bpm in sinus rhythm to sinus bradycardia Patient's laboratory studies and imaging reviewed. Differential includes Infection, dehydration, metabolic abnormality, hypo/hyperglycemia, electrolyte disturbance, anemia, hypoxia, cardiac sources, intracerebral event, toxicologic, neurologic, as well as other pathologies. IMPRESSION/MEDICAL DECISION MAKING: Patient presents with a difficult past medical history of cancer with brain metastasis currently on chemo and radiation therapy. Recent admission here last week and then transferred to [facility] discharged 2 days ago. Has been having chronic issues with lightheadedness states is worsened this morning. Patient denies falling, trauma, or passing out but states she feels quite near syncopal. Review of recent admission shows he has evidence of electrolyte abnormalities during recent admission. Denies significant nausea and vomiting at home. Did have her take her morning Keppra and MS Contin here. Blood pressure not initially hypotensive. No fevers reported. Seems less likely to be infectious. Recent echocardiogram during admission without significant findings. EKG and basic blood work repeated here. CT head completed given recent radiation look for intracranial abnormality. Given some fluid hydration here. No signs of significant fluid overload. Question at this possibly related to her ongoing radiation and chemotherapy and her oncological process. Discussed with the patient who was somewhat tearful and anxious regarding her condition and symptoms. Discussed with her findings. IV magnesium supplementation ordered. Discussed option of further trauma care at home for further observation at the hospital given her symptomatologies. She felt uncomfortable at home given her significant symptoms and very much understand this. You have some concerns about but to care for self at home. Discussed with the hospitalist team. DIAGNOSIS: Hypomagnesemia, lightheadedness, orthostatic hypotension DISPOSITION: Hospitalist will evaluate Patient was agreeable with this plan. Past Med/Surg History Medical History Acute hypokalemia Bilateral leg pain Brain metastases BRCA gene positive Cancer related pain Chest pain Hx of breast cancer Metastatic lung carcinoma Seizure disorder Surgical History H/O bilateral mastectomy H/O craniotomy H/O: hysterectomy History of cholecystectomy Family History Aunt Breast cancer Social History Smoking Status: Former smoker Tobacco Type: Cigarettes packs per day: 1; Years Smoked: 23; Second Hand Exposure: No; Hx Alcohol Use: No Hx Substance Use: No Preferred Language: Kazakh Communication Ability: Effective Back End Architect Required: No Beliefs That Will Affect Care: None marital status: Current Living Situation: Spouse How many Children do You have: 2 Feels Safe at Home: Yes Assistive Devices: None Allergies Allergies Allergy/AdvReac Type Severity Reaction Status Date / Time Penicillins Allergy Intermediate Swelling Verified 08/16/20 10:01 Home Meds Home Medications Medication Instructions Recorded Confirmed folic acid 1 mg PO QAM 07/09/20 08/27/20 ondansetron 8 mg PO Q8H PRN 07/09/20 08/27/20 prochlorperazine maleate 10 mg PO Q6H PRN 07/09/20 08/27/20 polyethylene glycol 3350 [Miralax] 17 g PO QID PRN 07/23/20 08/27/20 sennosides-docusate sodium 1 tab PO BID PRN 07/23/20 08/27/20 [Senokot-S] docusate sodium 100 mg PO BID PRN 07/29/20 08/27/20 oxycodone 5 mg PO Q6H PRN 07/29/20 08/27/20 levetiracetam 1,500 mg PO BID 08/16/20 08/27/20 dexamethasone 0 mg PO DAILY 08/27/20 08/27/20 midodrine 10 mg PO TID 08/27/20 08/27/20 Previous Rx's Medication Instructions Recorded morphine 15 mg PO Q12H #60 tab 07/16/20 lorazepam [Ativan] 1 mg SUBLINGUAL TID PRN #30 tab 08/12/20 Results & Data (ED) Vital Signs Vital Signs - 24 hr 08/27/20 07:47 08/27/20 08:21 08/27/20 08:46 Temperature 36.3 C L Temperature Source Oral Pulse Rate - Lying 79 Pulse Rate - Sitting 88 Pulse Rate - Standing 90 Pulse Rate 104 H 69 Respiratory Rate 18 14 Blood Pressure - Lying 121/84 Blood Pressure - Sitting 119/83 Blood Pressure- Standing 89/74 L Blood Pressure 103/73 101/78 Blood Pressure Mean 83 85 Pulse Oximetry 100 Oxygen Delivery Method Room Air Sepsis Recent Fever Within 48 Hours No Sepsis New/Unexplained Change in Mental Status No Sepsis Action Taken by Nursing No Action Required 08/27/20 08:48 08/27/20 08:53 08/27/20 09:00 Temperature Temperature Source Pulse Rate - Lying Pulse Rate - Sitting Pulse Rate - Standing Pulse Rate 75 70 Respiratory Rate 16 21 Blood Pressure - Lying Blood Pressure - Sitting Blood Pressure- Standing Blood Pressure 87/73 L Blood Pressure Mean 77 Pulse Oximetry 98 Oxygen Delivery Method Room Air Sepsis Recent Fever Within 48 Hours Sepsis New/Unexplained Change in Mental Status Sepsis Action Taken by Nursing 08/27/20 09:01 08/27/20 09:30 08/27/20 09:31 Temperature Temperature Source Pulse Rate - Lying Pulse Rate - Sitting Pulse Rate - Standing Pulse Rate 67 62 61 Respiratory Rate 19 13 17 Blood Pressure - Lying Blood Pressure - Sitting Blood Pressure- Standing Blood Pressure 100/77 Blood Pressure Mean 84 Pulse Oximetry Oxygen Delivery Method Sepsis Recent Fever Within 48 Hours Sepsis New/Unexplained Change in Mental Status Sepsis Action Taken by Nursing 08/27/20 10:00 08/27/20 10:30 08/27/20 10:31 Temperature Temperature Source Pulse Rate - Lying Pulse Rate - Sitting Pulse Rate - Standing Pulse Rate 52 L 53 L 55 L Respiratory Rate 17 16 16 Blood Pressure - Lying Blood Pressure - Sitting Blood Pressure- Standing Blood Pressure 134/86 103/68 Blood Pressure Mean 102 79 Pulse Oximetry Oxygen Delivery Method Sepsis Recent Fever Within 48 Hours Sepsis New/Unexplained Change in Mental Status Sepsis Action Taken by Nursing 08/27/20 11:00 08/27/20 11:01 08/27/20 11:30 Temperature Temperature Source Pulse Rate - Lying Pulse Rate - Sitting Pulse Rate - Standing Pulse Rate 85 87 55 L Respiratory Rate 20 18 14 Blood Pressure - Lying Blood Pressure - Sitting Blood Pressure- Standing Blood Pressure 104/77 101/70 Blood Pressure Mean 86 80 Pulse Oximetry Oxygen Delivery Method Sepsis Recent Fever Within 48 Hours Sepsis New/Unexplained Change in Mental Status Sepsis Action Taken by Nursing 08/27/20 11:31 08/27/20 12:00 08/27/20 12:01 Temperature Temperature Source Pulse Rate - Lying Pulse Rate - Sitting Pulse Rate - Standing Pulse Rate 57 L 66 63 Respiratory Rate 13 16 12 Blood Pressure - Lying Blood Pressure - Sitting Blood Pressure- Standing Blood Pressure 100/65 Blood Pressure Mean 76 Pulse Oximetry Oxygen Delivery Method Sepsis Recent Fever Within 48 Hours Sepsis New/Unexplained Change in Mental Status Sepsis Action Taken by Nursing 08/27/20 12:30 08/27/20 12:31 Temperature Temperature Source Pulse Rate - Lying Pulse Rate - Sitting Pulse Rate - Standing Pulse Rate 65 59 L Respiratory Rate 14 14 Blood Pressure - Lying Blood Pressure - Sitting Blood Pressure- Standing Blood Pressure 106/68 Blood Pressure Mean 80 Pulse Oximetry Oxygen Delivery Method Sepsis Recent Fever Within 48 Hours Sepsis New/Unexplained Change in Mental Status Sepsis Action Taken by Nursing Laboratory Data Result diagrams: 08/27/20 08:40 08/27/20 08:40 Lab Results 08/27/20 08/27/20 08/27/20 Range/Units 08:40 08:40 08:40 WBC 3.98 L (4.8-10.8) K/uL RBC 3.61 L (4.2-5.4) M/uL Hgb 11.0 L (12.0-16.0) g/dL Hct 31.5 L (37-47) % MCV 87.3 (80-100) fL MCH 30.5 (25-34) pg MCHC 34.9 (32-36) g/dL RDW Std Deviation 46.0 (36.4-46.3) fL RDW Coeff of Suri 15.5 H (11.5-14.5) % Plt Count 162 (130-400) K/uL MPV 10.1 (7.4-10.4) fL Immature Gran % (Auto) 1.8 % Neut % (Auto) 42.1 % Lymph % (Auto) 43.0 % [place] % (Auto) 12.8 % Eos % (Auto) 0.0 % Baso % (Auto) 0.3 % Neut # (Auto) 1.68 (1.4-6.5) K/uL Lymph # (Auto) 1.71 (1.2-3.4) K/uL [place] # (Auto) 0.51 (0.11-0.59) K/uL Eos # (Auto) 0.00 (0-0.5) K/uL Baso # (Auto) 0.01 (0-0.2) K/uL Immature Gran # (Auto) 0.07 H (0.00-0.02) K/uL Absolute Nucleated RBC 0.03 H (0-0) K/uL Nucleated RBC % (auto) 0.7 % Sodium 137 (136-145) mmol/L Potassium 3.5 (3.5-5.1) mmol/L Chloride 104 (98-107) mmol/L Carbon Dioxide 25 (21-32) mmol/L Anion Gap 8.0 (3-11) BUN 7 (7-18) mg/dl Creatinine 0.58 L (0.6-1.2) mg/dl Est Cr Clr Drug Dosing Not Reportable Est GFR ( Amer) 129.9 Est GFR (Non-Af Amer) 112.1 BUN/Creatinine Ratio 11.4 (10-20) Glucose 84 (70-99) mg/dl Calcium 9.2 (8.5-10.1) mg/dl Magnesium 1.5 L (1.8-2.4) mg/dl Total Bilirubin 0.6 (0.2-1) mg/dl AST 132 H (15-37) U/L ALT 291 H (12-78) U/L Alkaline Phosphatase 208 H (45-117) U/L Troponin I < 0.015 (0-0.045) ng/ml Total Protein 7.2 (6.4-8.2) gm/dl Albumin 3.6 (3.4-5.0) gm/dl Globulin 3.6 (2.5-4.0) gm/dl Albumin/Globulin Ratio 1.0 (0.9-2) Lipase 64 L (73-393) U/L TSH 0.433 (0.300-4.500) uIu/ml Specimen Hemolysis Urine Color Yellow Urine Appearance Clear (Clear) Urine pH 7.5 (4.5-7.5) Ur Specific [place] 1.011 (1.000-1.030) Urine Protein Negative (Negative) Urine Glucose (UA) Negative (Negative) Urine Ketones Negative (Negative) Urine Blood Negative (Negative) Urine Nitrite Negative (Negative) Urine Bilirubin Negative (Negative) Urine Urobilinogen Negative (Negative) Ur Leukocyte Esterase Negative (Negative) COVID-19 Eval Order SARS-CoV-2 (PCR) (Negative) Influenza Type A (PCR) (Neg) Influenza Type B (PCR) (Neg) RSV (RT-PCR) (Neg) 08/27/20 08/27/20 Range/Units 10:33 10:33 WBC (4.8-10.8) K/uL RBC (4.2-5.4) M/uL Hgb (12.0-16.0) g/dL Hct (37-47) % MCV (80-100) fL MCH (25-34) pg MCHC (32-36) g/dL RDW Std Deviation (36.4-46.3) fL RDW Coeff of Suri (11.5-14.5) % Plt Count (130-400) K/uL MPV (7.4-10.4) fL Immature Gran % (Auto) % Neut % (Auto) % Lymph % (Auto) % [place] % (Auto) % Eos % (Auto) % Baso % (Auto) % Neut # (Auto) (1.4-6.5) K/uL Lymph # (Auto) (1.2-3.4) K/uL [place] # (Auto) (0.11-0.59) K/uL Eos # (Auto) (0-0.5) K/uL Baso # (Auto) (0-0.2) K/uL Immature Gran # (Auto) (0.00-0.02) K/uL Absolute Nucleated RBC (0-0) K/uL Nucleated RBC % (auto) % Sodium (136-145) mmol/L Potassium (3.5-5.1) mmol/L Chloride (98-107) mmol/L Carbon Dioxide (21-32) mmol/L Anion Gap (3-11) BUN (7-18) mg/dl Creatinine (0.6-1.2) mg/dl Est Cr Clr Drug Dosing Est GFR ( Amer) Est GFR (Non-Af Amer) BUN/Creatinine Ratio (10-20) Glucose (70-99) mg/dl Calcium (8.5-10.1) mg/dl Magnesium (1.8-2.4) mg/dl Total Bilirubin (0.2-1) mg/dl AST (15-37) U/L ALT (12-78) U/L Alkaline Phosphatase (45-117) U/L Troponin I (0-0.045) ng/ml Total Protein (6.4-8.2) gm/dl Albumin (3.4-5.0) gm/dl Globulin (2.5-4.0) gm/dl Albumin/Globulin Ratio (0.9-2) Lipase (73-393) U/L TSH (0.300-4.500) uIu/ml Specimen Hemolysis Urine Color Urine Appearance (Clear) Urine pH (4.5-7.5) Ur Specific [place] (1.000-1.030) Urine Protein (Negative) Urine Glucose (UA) (Negative) Urine Ketones (Negative) Urine Blood (Negative) Urine Nitrite (Negative) Urine Bilirubin (Negative) Urine Urobilinogen (Negative) Ur Leukocyte Esterase (Negative) COVID-[address] CovFluRsv at [facility] SARS-CoV-2 (PCR) NEGATIVE (Negative) Influenza Type A (PCR) Negative (Neg) Influenza Type B (PCR) Negative (Neg) RSV (RT-PCR) Negative (Neg) Administered Medications Discontinued Medications Sodium Chloride (Nss 1000ml) 1,000 mls @ 999 mls/hr IV .Q1H1M [facility] Stop: 08/27/20 09:15 Last Infusion: 08/27/20 11:07 Dose: 0 mls/hr Documented by: [id number] Admin: 08/27/20 08:48 Dose: 999 mls/hr Documented by: [id number] Magnesium Sulfate/Dextrose (Magnesium Sulfate / D5w) 1 gm in 100 mls @ 200 mls/hr IV Q30M [facility] Stop: 08/27/20 10:32 Last Admin: 08/27/20 11:12 Dose: 100 mls/hr Documented by: [id number] Infusion: 08/27/20 11:07 Dose: 0 mls/hr Documented by: [id number] Admin: 08/27/20 10:05 Dose: 200 mls/hr Documented by: [id number] Midodrine (Midodrine Hcl 10 Mg Tab) 10 mg PO ONCE ONE Stop: 08/27/20 08:17 Last Admin: 08/27/20 08:57 Dose: 10 mg Documented by: [id number] Oxycodone HCl (Oxycodone Hcl Ir 5 Mg Tab (Immediate Release)) 5 mg PO NOW STA Stop: 08/27/20 09:33 Last Admin: 08/27/20 10:06 Dose: 5 mg Documented by: [id number] Imaging Data Radiologist's Impression: Chest X-Ray 08/27/20 08:15 XR chest 1V portable HISTORY: 45 years-old Female lightheaded acute lightheadedness COMPARISON: Chest radiograph 08/16/2020 TECHNIQUE: Portable AP view of the chest FINDINGS: Cardiac mediastinal and hilar silhouettes are within normal limits. Left subclavian [id number]-h-[id number] catheter. Mild linear left lung base scarring/atelectasis. No pneumothorax, pleural effusion or overt pulmonary edema. Right upper lobe mass measuring up to approximately 5 cm redemonstrated. Bones appear grossly intact. Partially imaged hardware of the left humerus. Bilateral breast implants. IMPRESSION: 1. No acute process. 2. Right upper lobe mass redemonstrated. ACT 112: Negative or not required by law. The above report was generated using voice recognition software. It may contain grammatical, syntax or spelling errors. Electronically signed by: Ashwin Borja M.D. 08/27/2020 8:[address] 08/27/20 08:18 CT head/brain wo con CLINICAL HISTORY: 45 years-old Female with lightheadedness, hx cancer. Acute lightheadedness TECHNIQUE: Multiple axial CT images of the head were obtained without contrast. A dose lowering technique was utilized adhering to the principles of ALARA. CT DOSE: 537.48 mGy.cm COMPARISON: Brain MRI 08/06/2020, head CT 08/12/2020 FINDINGS: Prior right-sided craniotomy. Unchanged edema of the right cerebral hemisphere adjacent to the craniotomy site. Vasogenic edema within the right occipital lobe is unchanged. Subcentimeter lesion of the parafalcine left parietal lobe, image 22 is unchanged. Additional smaller metastatic lesions described on comparison brain MRI are not appreciated by CT. No acute intracranial hemorrhage, midline shift, hydrocephalus or acute territorial infarct. The calvarium is intact. The paranasal sinuses, mastoid air cells, and middle ear cavities are clear. IMPRESSION: 1. No acute intracranial abnormality. 2. Prior right-sided craniotomy with encephalomalacia of the right cerebral hemisphere adjacent to the craniotomy site. 3. Unchanged vasogenic edema of the right occipital lobe secondary to the previously mentioned ring-enhancing lesion suggestive of metastasis. 4. Subcentimeter lesion of the left parafalcine parietal lobe, also suggestive of metastasis. ACT 112: Negative or not required by law. The above report was generated using voice recognition software. It may contain grammatical, syntax or spelling errors. Electronically signed by: Ashwin Borja M.D. 08/27/2020 9:22 AM Discharge Plan Visit Data Chief Complaint: Dizziness Stated Complaint: FEELS LIKE GOING TO PASS OUT ED Provider: Mehul Morgan Discharge Problem: Orthostatic lightheadedness, Hypomagnesemia Patient Disposition: Being Evaluated by Hospitalist Forms Stand Alone Forms: [facility] Prescriptions Prescriptions: No Action folic acid 1 mg Tablet 1 mg PO QAM RF: 0 ondansetron 8 mg Tablet,Disintegrating 8 mg PO Q8H PRN (Reason: Nausea) RF: 0 prochlorperazine maleate 10 mg Tablet 10 mg PO Q6H PRN (Reason: Nausea) RF: 0 morphine 15 mg Tablet Extended Release 15 mg PO Q12H Qty: 60 RF: 0 polyethylene glycol 3350 [Miralax] 17 gram powder in packet 17 g PO QID PRN (Reason: Constipation) RF: 0 sennosides-docusate sodium [Senokot-S] 8.6-50 mg tablet 1 tab PO BID PRN (Reason: Constipation) RF: 0 docusate sodium 100 mg capsule 100 mg PO BID PRN (Reason: Constipation) RF: 0 oxycodone 5 mg tablet 5 mg PO Q6H PRN (Reason: Pain, Severe) RF: 0 lorazepam [Ativan] 1 mg tablet 1 mg sublingual TID PRN (Reason: anxiety) Qty: 30 RF: 0 levetiracetam 500 mg tablet 1,500 mg PO BID RF: 0 dexamethasone 1 mg tablet 0 mg PO DAILY RF: 0 midodrine 10 mg tablet 10 mg PO TID RF: 0 Referrals Referrals: Jasiel Fritz, [Primary Care Provider] -
--- NOTE | 2020-08-27 08:54 | XRay Report ---
XR chest 1V portable HISTORY: 45 years-old Female lightheaded acute lightheadedness COMPARISON: Chest radiograph 08/16/2020 TECHNIQUE: Portable AP view of the chest FINDINGS: Cardiac mediastinal and hilar silhouettes are within normal limits. Left subclavian [id number] cat heter. Mild linear left lung base scarring/atelectasis. No pneumothorax, pleural effusion or overt pu lmonary edema. Right upper lobe mass measuring up to approximately 5 cm redemonstrated. Bones appear grossly intact. Partially imaged hardware of the left humerus. Bilateral breast implants. IMPRESSION: 1. No acute process. 2. Right upper lobe mass redemonstrated. ACT 112: Negative or not required by law. The above report was generated using voice recognition software. It may contain grammatical, syntax o r spelling errors. Electronically signed by: Ashwin Borja M.D. 08/27/2020 8:53 AM
[2020-08-27 08:55] LABS: Basophils # (auto) 0.01 K/uL (0-0.2); Basophils % (auto) 0.3 %; Hematocrit (blood only) 31.5 % (37-47); Immature Granulocytes # (auto) 0.07 K/uL (0.00-0.02); Immature Granulocytes % (auto) 1.8 %; Lymphocytes # (auto) 1.71 K/uL (1.2-3.4); Mean Corpuscular Hemoglobin 30.5 pg (25-34); Mean Corpuscular Hgb Conc 34.9 g/dL (32-36); Mean Corpuscular Volume 87.3 fL (80-100); Mean Platelet Volume 10.1 fL (7.4-10.4); Monocytes # (auto) 0.51 K/uL (0.11-0.59); Monocytes % (auto) 12.8 %; Neutrophils # (auto) 1.68 K/uL (1.4-6.5); Neutrophils % (auto) 42.1 %; Nucleated RBC # (auto) 0.03 K/uL (0-0); Nucleated RBC % (auto) 0.7 %; Platelet Count 162 K/uL (130-400); RDW Coefficient of Variation 15.5 % (11.5-14.5); Red Blood Count 3.61 M/uL (4.2-5.4); White Blood Count 3.98 K/uL (4.8-10.8)
[2020-08-27 09:03] LABS: Appearance Urine Clear (Clear); Bilirubin Urine Negative (Negative); Blood Urine Negative (Negative); Color Urine Yellow; Glucose Urine UA Negative (Negative); Ketones Urine Negative (Negative); Leukocyte Esterase Urine Negative (Negative); Nitrite Urine Negative (Negative); Protein Urine Negative (Negative); Specific Gravity Urine 1.011 (1.000-1.030); Urobilinogen Urine Negative (Negative); pH Urine 7.5 (4.5-7.5)
[2020-08-27 09:12] LABS: Alanine Aminotransferase 291 U/L (12-78); Albumin Level 3.6 gm/dl (3.4-5.0); Aspartate Aminotransferase 132 U/L (15-37); BUN Creatinine Ratio 11.4 (10-20); Blood Urea Nitrogen 7 mg/dl (7-18); Calcium 9.2 mg/dl (8.5-10.1); Carbon Dioxide 25 mmol/L (21-32); Chloride 104 mmol/L (98-107); Est GFR (African American) 129.9; Est GFR (Non-African American) 112.1; Glucose 84 mg/dl (70-99); Lipase 64 U/L (73-393); Magnesium 1.5 mg/dl (1.8-2.4); Potassium 3.5 mmol/L (3.5-5.1); Sodium 137 mmol/L (136-145)
--- NOTE | 2020-08-27 09:23 | CT Scan Report ---
CT head/brain wo con CLINICAL HISTORY: 45 years-old Female with lightheadedness, hx cancer. Acute lightheadedness TECHNIQUE: Multiple axial CT images of the head were obtained without contrast. A dose lowering tech nique was utilized adhering to the principles of ALARA. CT DOSE: 537.48 mGy.cm COMPARISON: Brain MRI 08/06/2020, head CT 08/12/2020 FINDINGS: Prior right-sided craniotomy. Unchanged edema of the right cerebral hemisphere adjacent to the cranio erin site. Vasogenic edema within the right occipital lobe is unchanged. Subcentimeter lesion of the parafalcine left parietal lobe, image 22 is unchanged. Additional smaller metastatic lesions describe d on comparison brain MRI are not appreciated by CT. No acute intracranial hemorrhage, midline shift, hydrocephalus or acute territorial infarct. The calvarium is intact. The paranasal sinuses, mastoid air cells, and middle ear cavities are clear . IMPRESSION: 1. No acute intracranial abnormality. 2. Prior right-sided craniotomy with encephalomalacia of the right cerebral hemisphere adjacent to th e craniotomy site. 3. Unchanged vasogenic edema of the right occipital lobe secondary to the previously mentioned ring-e nhancing lesion suggestive of metastasis. 4. Subcentimeter lesion of the left parafalcine parietal lobe, also suggestive of metastasis. ACT 112: Negative or not required by law. The above report was generated using voice recognition software. It may contain grammatical, syntax o r spelling errors. Electronically signed by: Ashwin Borja M.D. 08/27/2020 9:22 AM
[2020-08-27 09:24] LABS: Alkaline Phosphatase 208 U/L (45-117); Bilirubin,Total 0.6 mg/dl (0.2-1); Globulin 3.6 gm/dl (2.5-4.0); Thyroid Stimulating Hormone 0.433 uIu/ml (0.300-4.500); Total Protein 7.2 gm/dl (6.4-8.2); Troponin I < 0.015 ng/ml (0-0.045)
[2020-08-27] MEDS ORDERED: oxyCODONE HCL IR 5 MG TAB (IMMEDIATE RELEASE) PO STA (09:32)
--- NOTE | 2020-08-27 09:38 | Electrocardiogram Report ---
Test Reason : Blood Pressure : / mmHG Vent. Rate : 072 BPM Atrial Rate : 072 BPM P-R Int : 104 ms QRS Dur : 074 ms QT Int : 372 ms P-R-T Axes : 062 090 084 degrees QTc Int : 407 ms Sinus rhythm with short MS Rightward axis Borderline ECG When compared with ECG of 16-AUG-2020 09:28, No significant change was found Confirmed by Tyree Jeong ([id number]) on 08/27/2020 9:38:22 AM Referred By: REFERRED SELF Confirmed By:Tyree Jeong
[2020-08-27] MEDS: MAGNESIUM SULFATE / D5W 1 GM/100 ML BAG IV SCH ×2 (10:05→11:12)
[2020-08-27 11:31] LABS: Influenza A virus by PCR Negative (Neg); Influenza B virus by PCR Negative (Neg); RSV by PCR Negative (Neg); SARS CoV2 RNA(COVID-19) InHosp NEGATIVE (Negative)
--- NOTE | 2020-08-27 13:28 | History & Physical Report ---
Date of Service August 27, 2020 Assessment & Plan (1) Orthostatic lightheadedness: -Admit to [facility] -Patient presenting from home with reports of lightheadedness with standing. Recent history as outlined in HPI. -May be due to adrenal insufficiency (noted the patient has metastases to bilate ral adrenal glands). While at [facility] last week, morning cortisol was obtained and found to be low, cosyntropin was administered and adrenal's responded appropriately. -Continue midodrine 10 mg 3 times daily -Increase dexamethasone back to 4 mg twice daily. Discussed with NICHO Garrido ([facility]) who will address further tapering at her appointment on 08/31 -Continue to monitor orthostatic BPs (2) Elevated LFTs: -Noted fluctuating LFTs over the past several weeks -?? Due to chemotherapy -Bili normal, no abdominal complaints (3) Adenocarcinoma of lung: -With extensive lymphadenopathy of the neck, chest, abdomen and metastases to brain and bilateral adrenal glands -s/p frontal craniotomy for brain tumor resection -Currently on Alimta, carboplatin, Keytruda q3 weeks -Continue home pain medication regimen (4) Anxiety: -Patient experiencing high levels of anxiety since cancer diagnosis and also with the resumption of dexamethasone -Was evaluated by palliative care at [facility] who recommended Zyprexa -patient hesitant to start at this time, will let us know if she would like us to prescribe -Continue as needed lorazepam (5) Seizure disorder: -d/t edematous tumor burden -Stable, continue Keppra (6) DVT prophylaxis: -SQ Lovenox History of Present Illness Chief Complaint: Lightheadedness Primary Care Provider: Jasiel Fritz DO 45-year-old female with PMH remote history of breast cancer, current adenocarcinoma of the lung with extensive lymphadenopathy involving neck, chest, abdomen and metastases to brain and bilateral adrenal glands, anxiety, depression, and other problems listed below who presents to the ED for evaluation of lightheadedness. Patient is s/p right frontal craniotomy for brain tumor resection 05/2020, s/p radiation treatments 08/22 and 08/23, current chemotherapy regimen: Alimta, carboplatin, Keytruda every 3 weeks. Patient recently admitted to [facility] 08/16 through 08/21 with subsequent transfer to [facility], discharged on 08/25. She was treated for orthostatic hypotension and received radiation therapy to brain metastases while inpatient at [facility]. She was started on midodrine 10 mg 3 times daily. There was concern for adrenal insufficiency and patient was started on dexamethasone taper. She previously was on dexamethasone which was discontinued on 08/13. She was also evaluated by the palliative care team at [facility] and was recommended to start Zyprexa for management of anxiety, nausea, sleep aid, reducing polypharmacy. Patient declined to start Zyprexa at that time. Patient reports ongoing issues with lightheadedness and generalized weakness with standing. She denies any syncopal event. She reports increased anxiety and jitteriness due to taking dexamethasone. Reports pain is controlled with current pain medication regimen. Appetite has been good. Denies abdominal pain, nausea, vomiting, diarrhea. No chest pain or shortness of breath. No fevers or chills. Denies urinary symptoms. In the ED, with his today blood pressures are positive. Labs show stable CBC, MG +1.5, elevated LFTs (total bili 0.6, AST 132, ALT 21, alk phos 208). Patient was given IVF, IV magnesium replacement, midodrine, and oxycodone. Allergies Allergy/AdvReac Type Severity Reaction Status Date / Time Penicillins Allergy Intermediate Swelling Verified 08/16/20 10:01 Home Medications Medication Instructions Recorded Confirmed Type folic acid 1 mg PO QAM 07/09/20 08/27/20 History ondansetron 8 mg PO Q8H PRN 07/09/20 08/27/20 History prochlorperazine maleate 10 mg PO Q6H PRN 07/09/20 08/27/20 History morphine 15 mg PO Q12H #60 tab 07/16/20 08/27/20 Rx polyethylene glycol 3350 [Miralax] 17 g PO QID PRN 07/23/20 08/27/20 History sennosides-docusate sodium 1 tab PO BID PRN 07/23/20 08/27/20 History [Senokot-S] docusate sodium 100 mg PO BID PRN 07/29/20 08/27/20 History oxycodone 5 mg PO Q6H PRN 07/29/20 08/27/20 History lorazepam [Ativan] 1 mg SUBLINGUAL TID PRN #30 tab 08/12/20 08/27/20 Rx levetiracetam 1,500 mg PO BID 08/16/20 08/27/20 History dexamethasone 0 mg PO DAILY 08/27/20 08/27/20 History midodrine 10 mg PO TID 08/27/20 08/27/20 History Past Med/Surg History Medical History Adenocarcinoma of lung w/ extensive lymphadenopathy in the neck, chest, abdomen; brain and bilateral adrenal metastases Brain metastases BRCA gene positive Hx of breast cancer Seizure disorder Due to tumor edematous burden Surgical History H/O bilateral mastectomy H/O craniotomy 05/2020-right frontal craniotomy for brain tumor resection H/O: hysterectomy History of cholecystectomy Family History Aunt Breast cancer Social History Smoking Status: Former smoker Tobacco Type: Cigarettes packs per day: 1; Years Smoked: 23; Second Hand Exposure: No; Do You Dip or Chew Tobacco: No; Tobacco Cessation Education Requested by Patient: No Hx Alcohol Use: No Hx Substance Use: No Preferred Language: Macedonian Communication Ability: Effective Entry Level Installation Technician Required: No Beliefs That Will Affect Care: None marital status: Current Living Situation: Spouse How many Children do You have: 2 Other Information That Helps Us Care for You: No Feels Safe at Home: Yes Safety Concerns: Feels Safe At This Time Assistive Devices: Glasses Review of Systems Review of Systems: ROS per HPI, all other systems reviewed and negative Physical Exam Constitutional: WD/WN, vitals as above Eyes: PERRL, conjunctivae normal, anicteric sclerae ENMT: external ear and nose normal, oropharynx normal Respiratory: normal respiratory effort, lungs clear to auscultation Cardiovascular: Rate/Rhythm: regular rate and regular rhythm Vessels: normal peripheral pulses Extremities: no edema Chest (Breasts): Chest: + vascular access device or port (left chest - mediport) Gastrointestinal (Abdomen): normal bowel sounds, soft, nontender, no hepatosplenomegaly Musculoskeletal: no cyanosis or clubbing, extremities motor strength 5/5 Skin: no rashes, warm and dry Neurologic: PERRL, EOMI, accommodation nl, no face palsy, no dysarthria Psychiatric: Orientation: alert and oriented x 3 Affect: + tearful affect Results & Data Results & Data ([facility]) Vital Signs (Past 12 Hours) Vital Signs Temp Pulse Resp BP Pulse Ox 08/27/20 13:01 75 20 08/27/20 13:00 71 20 97/72 L 08/27/20 12:31 59 L 14 08/27/20 12:30 65 14 106/68 08/27/20 12:01 63 12 08/27/20 12:00 66 16 100/65 08/27/20 11:31 57 L 13 08/27/20 11:30 55 L 14 101/70 08/27/20 11:01 87 18 08/27/20 11:00 85 20 104/77 08/27/20 10:31 55 L 16 08/27/20 10:30 53 L 16 103/68 08/27/20 10:00 52 L 17 134/86 08/27/20 09:31 61 17 08/27/20 09:30 62 13 100/77 08/27/20 09:01 67 19 08/27/20 09:00 70 21 87/73 L 08/27/20 08:53 75 16 08/27/20 08:48 98 08/27/20 08:46 69 14 101/78 08/27/20 07:47 36.3 C L 104 H 18 103/73 100 Laboratory Results Short CBC 08/27/20 Range/Units 08:40 WBC 3.98 L (4.8-10.8) K/uL Hgb 11.0 L (12.0-16.0) g/dL Hct 31.5 L (37-47) % Plt Count 162 (130-400) K/uL BMP 08/27/20 08:40 Sodium 137 Potassium 3.5 Chloride 104 Carbon Dioxide 25 BUN 7 Creatinine 0.58 L Glucose 84 Calcium 9.2 Cardiac Enzymes 08/27/20 Range/Units 08:40 Troponin I < 0.015 (0-0.045) ng/ml Liver Function 08/27/20 Range/Units 08:40 Total Bilirubin 0.6 (0.2-1) mg/dl AST 132 H (15-37) U/L ALT 291 H (12-78) U/L Alkaline Phosphatase 208 H (45-117) U/L Albumin 3.6 (3.4-5.0) gm/dl Urine 08/27/20 Range/Units 08:40 Urine Color Yellow Urine Appearance Clear (Clear) Urine pH 7.5 (4.5-7.5) Ur Specific [place] 1.011 (1.000-1.030) Urine Protein Negative (Negative) Urine Glucose (UA) Negative (Negative) Diagnostic Findings Chest X-Ray 08/27/20 08:15 XR chest 1V portable HISTORY: 45 years-old Female lightheaded acute lightheadedness COMPARISON: Chest radiograph 08/16/2020 TECHNIQUE: Portable AP view of the chest FINDINGS: Cardiac mediastinal and hilar silhouettes are within normal limits. Left subclavian Rerfiu-h-Muli catheter. Mild linear left lung base scarr ing/atelectasis. No pneumothorax, pleural effusion or overt pulmonary edema. Right upper lobe mass measuring up to approximately 5 cm redemonstrated. Bones appear grossly intact. Partially imaged hardware of the left humerus. Bilateral breast implants. IMPRESSION: 1. No acute process. 2. Right upper lobe mass redemonstrated. ACT 112: Negative or not required by law. The above report was generated using voice recognition software. It may contain grammatical, syntax or spelling errors. Electronically signed by: Ashwin Borja M.D. 08/27/2020 8:[address] 08/27/20 08:18 CT head/brain wo con CLINICAL HISTORY: 45 years-old Female with lightheadedness, hx cancer. Acute lightheadedness TECHNIQUE: Multiple axial CT images of the head were obtained without contrast. A dose lowering technique was utilized adhering to the principles of ALARA. CT DOSE: 537.48 mGy.cm COMPARISON: Brain MRI 08/06/2020, head CT 08/12/2020 FINDINGS: Prior right-sided craniotomy. Unchanged edema of the right cerebral hemisphere adjacent to the craniotomy site. Vasogenic edema within the right occipital lobe is unchanged. Subcentimeter lesion of the parafalcine left parietal lobe, image 22 is unchanged. Additional smaller metastatic lesions described on comparison brain MRI are not appreciated by CT. No acute intracranial hemorrhage, midline shift, hydrocephalus or acute territorial infarct. The calvarium is intact. The paranasal sinuses, mastoid air cells, and middle ear cavities are clear. IMPRESSION: 1. No acute intracranial abnormality. 2. Prior right-sided craniotomy with encephalomalacia of the right cerebral hemisphere adjacent to the craniotomy site. 3. Unchanged vasogenic edema of the right occipital lobe secondary to the pr eviously mentioned ring-enhancing lesion suggestive of metastasis. 4. Subcentimeter lesion of the left parafalcine parietal lobe, also suggestive of metastasis. ACT 112: Negative or not required by law. The above report was generated using voice recognition software. It may contain grammatical, syntax or spelling errors. Electronically signed by: Ashwin Borja M.D. 08/27/2020 9:22 AM Code Status & VTE Plan VTE Prophylaxis Plan VTE Prophylaxis will be ordered: Yes Supervising Physician Co-Signing Physician Notes I saw this patient with the Nurse Practitioner, I participated in the history, physical, review of systems, and physical exam. I reviewed the medications with the patient and the Nurse Practitioner and helped reconcile the medications. I helped take a detailed family and social history as well. I formulated the assessment and plan personally with the Nurse Practitioner went over it with the patient. Physical Exam Gen-AAO x 3, NAD, Afebrile Head-NCAT, EOMI, PERRLA, Anicteric Sclera, No Posterior Pharyngeal Erythema Neck-Supple, No JVD, No Thyromegaly, No Masses, No LAD, No Bruits Lungs-Clear to Auscultation Bilaterally, No Rales, No Rhonchi, No Wheezing, No Crepitus Chest-No S4, +S1, +S2, No S3, No Murmurs, No Rubs, No Gallops, No Ectopy Abdomen-Soft, Bowel Sounds Present, Non Tender, Non Distended, No Hepatomegaly, No Splenomegaly, No Palpable Masses, No Rebound, No Rigidity, No Guarding Musculoskeletal-Full Range of Motion Bilaterally, No CVAT Extremities-No Cyanosis, No Clubbing, No Edema Nuero-Cranial Nerves II-XII grossly intact, Motor WNL, DTRs WNL, Strength WNL, Non Focal Psych-Normal Mood
[2020-08-27] MEDS ORDERED: ONDANSETRON 8MG OD TAB PO PRN (13:56)
[2020-08-27] MEDS ORDERED: DOCUSATE SODIUM/SENNA 50/8.6MG TAB PO PRN (13:56)
[2020-08-27] MEDS ORDERED: ACETAMINOPHEN 325 MG TAB PO PRN (13:56)
[2020-08-27] MEDS ORDERED: POLYETHYLENE (MIRALAX) 17 GM PACK PO PRN (13:56)
[2020-08-27] MEDS ORDERED: PROCHLORPERAZINE MALEATE 10 MG TAB PO PRN (13:56)
[2020-08-27] MEDS: LORazepam 1 MG TAB SL PRN (15:00)
[2020-08-27] MEDS: MIDODRINE HCL 10 MG TAB PO SCH ×2 (15:02→18:07)
[2020-08-27] MEDS: ENOXAPARIN INJ 40 MG/0.4 ML SYR SQ SCH (15:02)
[2020-08-27] MEDS: dexAMETHasone 4 MG TAB PO SCH (18:07)
[2020-08-27] MEDS: MoRPHine SULFATE CR 15 MG TABCR PO SCH (19:50)
[2020-08-27] MEDS: levETIRAcetam 500 MG TAB PO SCH (19:51)
[2020-08-27] MEDS: oxyCODONE HCL IR 5 MG TAB (IMMEDIATE RELEASE) PO PRN (21:16)
[2020-08-28 06:44] LABS: Hematocrit (blood only) 29.7 % (37-47); Hemoglobin 9.9 g/dL (12.0-16.0); Mean Corpuscular Hemoglobin 29.6 pg (25-34); Mean Corpuscular Hgb Conc 33.3 g/dL (32-36); Mean Corpuscular Volume 88.9 fL (80-100); Mean Platelet Volume 9.5 fL (7.4-10.4); Platelet Count 159 K/uL (130-400); RDW Coefficient of Variation 15.8 % (11.5-14.5); Red Blood Count 3.34 M/uL (4.2-5.4); White Blood Count 3.69 K/uL (4.8-10.8)
[2020-08-28 07:17] LABS: BUN Creatinine Ratio 16.6 (10-20); Calcium 8.4 mg/dl (8.5-10.1); Est GFR (African American) 141.2; Est GFR (Non-African American) 121.9; Magnesium 2.1 mg/dl (1.8-2.4); Potassium 3.8 mmol/L (3.5-5.1)
[2020-08-28] MEDS: dexAMETHasone 4 MG TAB PO SCH ×2 (08:19→15:14)
[2020-08-28] MEDS: levETIRAcetam 500 MG TAB PO SCH ×2 (08:19→20:03)
[2020-08-28] MEDS: FOLIC ACID 1 MG TAB PO SCH (08:20)
[2020-08-28] MEDS: MoRPHine SULFATE CR 15 MG TABCR PO SCH ×2 (08:20→20:03)
[2020-08-28] MEDS: MIDODRINE HCL 10 MG TAB PO SCH ×3 (08:20→18:05)
--- NOTE | 2020-08-28 10:08 | Hospitalist Progress Note ---
Date of Service August 28, 2020 Assessment & Plan (1) Orthostatic lightheadedness: -MedSurg -Patient presenting from home with reports of lightheadedness with standing. Recent history as outlined in HPI. -May be due to adrenal insufficiency (noted the patient has metastases to bilateral adrenal glands). [place] [facility] [place], morning cortisol was obtained and found to be low, cosyntropin was administered and adrenal's responded appropriately. -Continue midodrine 10 mg 3 times daily, Add Fludrocortisone 0.1 mg Daily -Increase dexamethasone back to 4 mg twice daily. Discussed with NICHO Garrido ([facility]) who will address further tapering at her appointment on 08/31 -Continue to monitor orthostatic BPs (2) Elevated LFTs: -Noted fluctuating LFTs over the past several weeks -?? Due to chemotherapy -Bili normal, no abdominal complaints (3) Adenocarcinoma of lung: -With extensive lymphadenopathy of the neck, chest, abdomen and metastases to br ain and bilateral adrenal glands -s/p frontal craniotomy for brain tumor resection -Currently on Alimta, carboplatin, Keytruda q3 weeks -Continue home pain medication regimen (4) Anxiety: -Patient experiencing high levels of anxiety since cancer diagnosis and also with the resumption of dexamethasone -Was evaluated by palliative care at [facility] who recommended Zyprexa -patient hesitant to start at this time, will let us know if she would like us to prescribe -Continue as needed lorazepam (5) Seizure disorder: -d/t edematous tumor burden -Stable, continue Keppra (6) DVT prophylaxis: -SQ Lovenox Labs checked ROS-No Headache, No Visual Changes, No Nausea, No Vomiting, No Fever, No Chills, No Neck Pain or Stiffness, No Chest Pain, No Palpitations, No SOB, No GREWAL, No Cough, No Sputum, No Wheezing, No Abdominal Pain, No Diarrhea, No Hematemesis, No Hemoptysis, No Unexpected Weight Loss, No Flank pain, No Melena, No Hematochezia, No Frequency, No Urgency, No Burning, No Hematuria, No Rashes, No Diaphoresis. Appetite is Normal Physical Exam Gen-AAO x 3, NAD, Afebrile Head-NCAT, EOMI, PERRLA, Anicteric Sclera, No Posterior Pharyngeal Erythema Neck-Supple, No JVD, No Thyromegaly, No Masses, No LAD, No Bruits Lungs-Clear to Auscultation Bilaterally, No Rales, No Rhonchi, No Wheezing, No Crepitus Chest-No S4, +S1, +S2, No S3, No Murmurs, No Rubs, No Gallops, No Ectopy Abdomen-Soft, Bowel Sounds Present, Non Tender, Non Distended, No Hepatomegaly, No Splenomegaly, No Palpable Masses, No Rebound, No Rigidity, No Guarding Musculoskeletal-Full Range of Motion Bilaterally, No CVAT Extremities-No Cyanosis, No Clubbing, No Edema Nuero-Cranial Nerves II-XII grossly intact, Motor WNL, DTRs WNL, Strength WNL, Non Focal Psych-Normal Mood Admission and Anticipated Discharge Date Admission Date: August 27, 2020 Results & Data Results & Data ([facility]) Vital Signs (Past 12 Hours) Vital Signs Temp Pulse Resp BP Pulse Ox 08/28/20 06:21 36.7 C 81 18 94/60 L 97 08/27/20 23:00 36.7 C 80 18 88/52 L 98
[2020-08-28] MEDS: FLUDROCORTISONE ACETATE 0.1 MG TAB PO SCH ×2 (10:52→12:24)
[2020-08-28] MEDS: oxyCODONE HCL IR 5 MG TAB (IMMEDIATE RELEASE) PO PRN ×2 (12:25→21:18)
[2020-08-28] MEDS: ENOXAPARIN INJ 40 MG/0.4 ML SYR SQ SCH (14:05)
[2020-08-29] MEDS: oxyCODONE HCL IR 5 MG TAB (IMMEDIATE RELEASE) PO PRN ×3 (04:46→21:51)
[2020-08-29] MEDS: HEPARIN 100 UNIT/ML 5ML FLUSH FLUSH PRN (05:57)
[2020-08-29 06:28] LABS: Hematocrit (blood only) 29.4 % (37-47); Mean Corpuscular Hemoglobin 30.1 pg (25-34); Mean Corpuscular Volume 88.6 fL (80-100); Mean Platelet Volume 9.6 fL (7.4-10.4); Platelet Count 198 K/uL (130-400); RDW Coefficient of Variation 16.2 % (11.5-14.5); RDW Standard Deviation 49.1 fL (36.4-46.3); Red Blood Count 3.32 M/uL (4.2-5.4); White Blood Count 4.91 K/uL (4.8-10.8)
[2020-08-29 07:06] LABS: Albumin Level 3.2 gm/dl (3.4-5.0); Calcium 8.8 mg/dl (8.5-10.1); Creatinine Clr Calc Pharmacy 165.6 ml/min; Est GFR (African American) 140.2; Potassium 3.4 mmol/L (3.5-5.1)
[2020-08-29 07:09] LABS: Albumin Globulin Ratio 0.9 (0.9-2); Bilirubin,Total 0.4 mg/dl (0.2-1); Globulin 3.5 gm/dl (2.5-4.0); Total Protein 6.7 gm/dl (6.4-8.2)
[2020-08-29] MEDS: MoRPHine SULFATE CR 15 MG TABCR PO SCH ×2 (08:49→20:39)
[2020-08-29] MEDS: FOLIC ACID 1 MG TAB PO SCH (08:50)
[2020-08-29] MEDS: dexAMETHasone 4 MG TAB PO SCH ×2 (08:50→15:28)
[2020-08-29] MEDS: FLUDROCORTISONE ACETATE 0.1 MG TAB PO SCH (08:50)
[2020-08-29] MEDS: levETIRAcetam 500 MG TAB PO SCH ×2 (08:51→20:40)
[2020-08-29] MEDS: MIDODRINE HCL 10 MG TAB PO SCH ×3 (08:51→17:51)
[2020-08-29] MEDS: ENOXAPARIN INJ 40 MG/0.4 ML SYR SQ SCH (12:53)
--- NOTE | 2020-08-29 16:38 | Hospitalist Progress Note ---
Date of Service August 29, 2020 Assessment & Plan (1) Orthostatic lightheadedness: Presented with lightheadedness. -May be due to adrenal insufficiency (noted the patient has metastases to bilateral adrenal glands). While at [facility] last week, morning cortisol was obtained and found to be low, cosyntropin was administered and adrenal's responded appropriately. -Continue midodrine 10 mg 3 times daily along with fludrocortisone 0.1 mg daily -Dr. Stroud discussed with NICHO Garrido ([facility]) regarding the Methasone course, plan was to increase dexamethasone to 4 mg twice daily decide on next appointment on 08/31 regarding further taper. -Continue to monitor orthostatic BPs. Patient is in the 80s overnight. This morning appears to be better. Discharge once blood pressure is more stabilized. (2) Elevated LFTs: Possibly due to ongoing chemotherapy. LFTs are improving. (3) Adenocarcinoma of lung: -With extensive lymphadenopathy of the neck, chest, abdomen and metastases to brain and bilateral adrenal glands -s/p frontal craniotomy for brain tumor resection -Currently on Alimta, carboplatin, Keytruda q3 weeks -Continue home pain medication regimen (4) Anxiety: -Patient experiencing high levels of anxiety since cancer diagnosis and also with the resumption of dexamethasone -Was evaluated by palliative care at [facility] who recommended Zyprexa -patient hesitant to start at this time, will let us know if she would like us to prescribe. Patient still not willing to start yet and concerned about further defects with ongoing dizziness and electrolyte abnormalities. -Continue as needed lorazepam (5) Seizure disorder: -d/t edematous tumor burden -Stable, continue Keppra (6) DVT prophylaxis: -SQ Lovenox Admission and Anticipated Discharge Date Admission Date: August 27, 2020 Subjective Patient is very tearful this morning. She is frustrated with the continuous readmissions. Reports that she has been eating fine. Denies any dizziness. Chest pain or any shortness of breath. Just does not feel well in general. Depressed about ongoing clinical deterioration of her health. Review of Systems Review of Systems: All systems reviewed & are unremarkable except as noted in HPI & below Physical Exam Physical Exam: General: A&Ox3, tearful HENT: NCAT, MMM, EOMI Eyes: PERRLA Neck: Supple, normal range of motion CVS: normal rate and rhythm Resp: b/l good breath sounds Abdomen: Soft, ND/NT, +BS Extremities: No c/c/e Neuro: face symmetric, strength grossly equal, no focal deficit Skin: warm and dry, no rashes/lesions/errythema MSK: normal ROM, no joint swelling/erythema Results & Data [facility]) Vital Signs (Past 12 Hours) Vital Signs Temp Pulse Resp BP Pulse Ox 08/29/20 15:50 37.0 C 66 16 102/66 97 08/29/20 09:43 36.8 C 18 99
[2020-08-29] MEDS ORDERED: LACTATED RINGER'S 1,000 ML IV ONE (23:04)
[2020-08-30] MEDS: oxyCODONE HCL IR 5 MG TAB (IMMEDIATE RELEASE) PO PRN ×2 (04:31→10:44)
[2020-08-30] MEDS: HEPARIN 100 UNIT/ML 5ML FLUSH FLUSH PRN ×2 (05:00→09:33)
[2020-08-30] MEDS: FOLIC ACID 1 MG TAB PO SCH (08:10)
[2020-08-30] MEDS: dexAMETHasone 4 MG TAB PO SCH ×2 (08:10→15:16)
[2020-08-30] MEDS: levETIRAcetam 500 MG TAB PO SCH ×2 (08:10→20:22)
[2020-08-30] MEDS: FLUDROCORTISONE ACETATE 0.1 MG TAB PO SCH (08:10)
[2020-08-30] MEDS: MIDODRINE HCL 10 MG TAB PO SCH ×3 (08:10→17:01)
[2020-08-30] MEDS: MoRPHine SULFATE CR 15 MG TABCR PO SCH ×2 (08:16→20:23)
[2020-08-30 08:54] LABS: Hematocrit (blood only) 30.2 % (37-47); Hemoglobin 10.4 g/dL (12.0-16.0); Mean Corpuscular Hemoglobin 30.5 pg (25-34); Mean Corpuscular Hgb Conc 34.4 g/dL (32-36); Mean Corpuscular Volume 88.6 fL (80-100); Mean Platelet Volume 9.2 fL (7.4-10.4); Nucleated RBC # (auto) 0.02 K/uL (0-0); Nucleated RBC % (auto) 0.4 %; Platelet Count 229 K/uL (130-400); RDW Coefficient of Variation 16.5 % (11.5-14.5); Red Blood Count 3.41 M/uL (4.2-5.4); White Blood Count 5.61 K/uL (4.8-10.8)
[2020-08-30 09:12] LABS: Albumin Level 3.3 gm/dl (3.4-5.0); BUN Creatinine Ratio 13.7 (10-20); Calcium 9.2 mg/dl (8.5-10.1); Creatinine Clr Calc Pharmacy 122.8 ml/min; Est GFR (African American) 127.1; Est GFR (Non-African American) 109.7; Potassium 3.1 mmol/L (3.5-5.1)
[2020-08-30 09:15] LABS: Bilirubin,Total 0.3 mg/dl (0.2-1); Globulin 3.4 gm/dl (2.5-4.0); Total Protein 6.7 gm/dl (6.4-8.2)
[2020-08-30 09:18] LABS: Basophils # (auto) 0.02 K/uL (0-0.2); Basophils % (auto) 0.4 %; Eosinophils # (auto) 0.01 K/uL (0-0.5); Eosinophils % (auto) 0.2 %; Immature Granulocytes # (auto) 0.38 K/uL (0.00-0.02); Immature Granulocytes % (auto) 6.8 %; Lymphocytes # (auto) 2.19 K/uL (1.2-3.4); Monocytes % (auto) 7.1 %; Neutrophils # (auto) 2.61 K/uL (1.4-6.5); Neutrophils % (auto) 46.5 %; Ovalocytes 1+; Tear Drop Cells 1+
[2020-08-30] MEDS ORDERED: POTASSIUM PHOS 3 MMOL/1 ML INFUSION IV STA (09:49)
[2020-08-30] MEDS: POTASSIUM CHLORIDE / WTR 10 MEQ/100 ML PLCT IV SCH ×4 (10:44→14:10)
--- NOTE | 2020-08-30 10:49 | Hospitalist Progress Note ---
Date of Service August 30, 2020 Assessment & Plan (1) Orthostatic lightheadedness: Presented with lightheadedness. -May be due to adrenal insufficiency (noted the patient has metastases to bilateral adrenal glands). While at [facility] last week, morning cortisol was obtained and found to be low, cosyntropin was administered and adrenal's responded appropriately. -Continue midodrine 10 mg 3 times daily along with fludrocortisone 0.1 mg daily -Dr. Stroud discussed with NICHO Garrido ([facility]) regarding the course, plan was to increase dexamethasone to 4 mg twice daily decide on next appointment on 08/31 regarding further taper. -Continue to monitor orthostatic BPs. Orthostatics remain positive. Start patient on maintenance IV fluids today. Goal is to stabilize blood pressure today and electrolytes, discharged tomorrow morning for her chemo at 11 AM. I also spoke with palliative team over at [place]. She will be scheduled for an appointment as an outpatient further goals of care. Also emphasized the patient to discuss her prognosis with her oncologist have multidisciplinary team assess further course. Hypokalemia 40 mEq IV potassium ordered. Repeat BMP in the morning. (2) Elevated LFTs: Possibly due to ongoing chemotherapy. LFTs are improving. (3) Adenocarcinoma of lung: -With extensive lymphadenopathy of the neck, chest, abdomen and metastases to brain and bilateral adrenal glands -s/p frontal craniotomy for brain tumor resection -Currently on Alimta, carboplatin, Keytruda q3 weeks -Continue home pain medication regimen (4) Anxiety: -Patient experiencing high levels of anxiety since cancer diagnosis and also with the resumption of dexamethasone -Was evaluated by palliative care at [facility] who recommended Zyprexa -patient hesitant to start at this time, will let us know if she would like us to prescribe. Patient still not willing to start yet and concerned about further defects with ongoing dizziness and electrolyte abnormalities. -Continue as needed lorazepam (5) Seizure disorder: -d/t edematous tumor burden -Stable, continue Keppra (6) DVT prophylaxis: -SQ Lovenox Admission and Anticipated Discharge Date Admission Date: August 27, 2020 Subjective Patient remains tearful and depressed. Orthostatics continue to be positive. Frustrated with her frequent hospitalizations. States she is ready to fight for the next 6 weeks until she completes her chemotherapy. States overall she feels very weak. Denies any chest pain, shortness of breath, abdominal pain or any other weakness. Review of Systems Review of Systems: All systems reviewed & are unremarkable except as noted in HPI & below Physical Exam Physical Exam: General: A&Ox3, tearful HENT: NCAT, MMM, EOMI Eyes: PERRLA Neck: Supple, normal range of motion CVS: normal rate and rhythm Resp: b/l good breath sounds Abdomen: Soft, ND/NT, +BS Extremities: No c/c/e Neuro: face symmetric, strength grossly equal, no focal deficit Skin: warm and dry, no rashes/lesions/errythema MSK: normal ROM, no joint swelling/erythema Results & Data Results & Data ([facility]) Vital Signs (Past 12 Hours) Vital Signs Temp Pulse Resp BP Pulse Ox 08/30/20 08:08 36.6 C 63 18 95/56 L 96
[2020-08-30] MEDS: SODIUM CHLORIDE 0.9% 1000ML 1,000 ML IV SCH ×2 (11:16→23:37)
[2020-08-30 11:56] LABS: Magnesium 1.8 mg/dl (1.8-2.4); Phosphorus 3.1 mg/dl (2.5-4.9)
[2020-08-30] MEDS: ENOXAPARIN INJ 40 MG/0.4 ML SYR SQ SCH (13:04)
[2020-08-30] MEDS: LORazepam 1 MG TAB SL PRN (21:31)
[2020-08-31 06:32] LABS: Albumin Globulin Ratio 0.9 (0.9-2); Albumin Level 3.1 gm/dl (3.4-5.0); BUN Creatinine Ratio 15.1 (10-20); Bilirubin,Total 0.3 mg/dl (0.2-1); Calcium 8.6 mg/dl (8.5-10.1); Est GFR (Non-African American) 114.8; Globulin 3.5 gm/dl (2.5-4.0); Potassium 4.1 mmol/L (3.5-5.1); Total Protein 6.6 gm/dl (6.4-8.2)
[2020-08-31] MEDS: SODIUM CHLORIDE 0.9% 1000ML 1,000 ML IV SCH ×3 (08:59→23:14)
[2020-08-31] MEDS: FLUDROCORTISONE ACETATE 0.1 MG TAB PO SCH (09:00)
[2020-08-31] MEDS: MoRPHine SULFATE CR 15 MG TABCR PO SCH ×2 (09:00→20:39)
[2020-08-31] MEDS: FOLIC ACID 1 MG TAB PO SCH (09:00)
[2020-08-31] MEDS: MIDODRINE HCL 10 MG TAB PO SCH ×3 (09:01→17:34)
[2020-08-31] MEDS: levETIRAcetam 500 MG TAB PO SCH ×2 (09:02→20:39)
[2020-08-31] MEDS: dexAMETHasone 4 MG TAB PO SCH ×2 (09:02→14:47)
[2020-08-31] MEDS: LORazepam 1 MG TAB SL PRN (11:03)
[2020-08-31] MEDS: ENOXAPARIN INJ 40 MG/0.4 ML SYR SQ SCH (14:47)
[2020-08-31] MEDS: oxyCODONE HCL IR 5 MG TAB (IMMEDIATE RELEASE) PO PRN ×2 (14:47→21:52)
--- NOTE | 2020-08-31 20:21 | Hospitalist Progress Note ---
Date of Service August 31, 2020 Assessment & Plan (1) Orthostatic lightheadedness: Possible Adrenal insufficiency H/O Metastases to bilateral adrenal glands Brain metastasis with vasogenic edema also likely contributing --CT Head:No acute intracranial abnormality. Prior right-sided craniotomy with encephalomalacia of the right cerebral hemisphere adjacent to the craniotomy site. Unchanged vasogenic edema of the right occipital lobe secondary to the previously mentioned ring-enhancing lesion suggestive of metastasis. Subcentimeter lesion of the left parafalcine parietal lobe, also suggestive of metastasis. -Noted to have low cortisol levels on prior hospitalization at [facility] [place] -Continue midodrine 10 mg TID, fludrocortisone 0.1 mg daily -Prior hospitalist discussed with hematology oncology: Advised to increase dexamethasone to 4 mg BID until outpatient follow-up -Needs steroid taper as outpatient -Continue IV fluids Hypokalemia Replace electrolytes as needed Monitor magnesium levels (2) Elevated LFTs: Hepatic steatosis noted on recent ultrasound Likely chemotherapy contributing as well LFTs slowly improving Monitor (3) Adenocarcinoma of lung: Metastatic abnormal carcinoma of the lung Extensive lymphadenopathy to neck, chest, abdomen, brain metastasis and bilateral adrenal gland metastatic disease S/P frontal craniotomy for tumor resection, radiation therapy Ongoing chemotherapy Follows with Dr. Barillas Currently on Alimta, carboplatin, Keytruda q3 weeks Continue chronic pain meds Due for chemotherapy which will be rescheduled (4) Anxiety: -As per Prior Hospitalist -Patient experiencing high levels of anxiety since cancer diagnosis and also with the resumption of dexamethasone -Was evaluated by palliative care at [facility] [place] who recommended Zyprexa -patient hesitant to start at this time, will let us know if she would like us to prescribe. Patient still not willing to start yet and concerned about further defects with ongoing dizziness and electrolyte abnormalities. -Continue as needed lorazepam (5) Seizure disorder: Continue Keppra (6) DVT prophylaxis: SQ Lovenox Admission and Anticipated Discharge Date Admission Date: August 27, 2020 Subjective Patient is seen and examined at bedside States having intermittent dizziness unrelated to position Reports chronic pain Was nauseous earlier today but resolved currently Tolerating diet Denies shortness of breath, chest pain Offers no other complaints Scheduled for chemotherapy today but got canceled. Review of Systems Review of Systems: All systems reviewed & are unremarkable except as noted in HPI & below Physical Exam Physical Exam: Physical Exam: Vitals signs as noted above General Appearance:Moderately built and nourished, no apparent distress Head: normocephalic, Atraumatic Eyes: normal inspection, EOMI Neck: supple, Trachea midline Respiratory/Chest: Normal breath sounds, CTA, +Left chemo port Cardiovascular: S1, S2, No murmur Abdomen/GI:Soft, Non tender, Bowel sounds present Extremities/Musculoskeletal:normal inspection, no edema Neurologic/Psych:AAOX3, grossly no focal neurological deficits Skin: normal color, warm Results & Data Results & Data ([facility]) Vital Signs (Past 12 Hours) Vital Signs Temp Pulse Resp BP Pulse Ox 08/31/20 19:00 36.7 C 67 18 101/58 L 96 08/31/20 15:24 36.8 C 72 16 103/67 97 08/31/20 11:31 36.9 C 71 17 102/68 97 08/31/20 08:59 36.8 C [address] [facility] 08/31/20 05:21 Sodium 141 Potassium 4.1 D Chloride 109 H Carbon Dioxide 28 BUN 8 Creatinine 0.54 L Glucose 87 Calcium 8.6 Liver Function 08/31/20 Range/Units 05:21 Total Bilirubin 0.3 (0.2-1) mg/dl AST 45 H (15-37) U/L ALT 197 H (12-78) U/L Alkaline Phosphatase 139 H (45-117) U/L Albumin 3.1 L (3.4-5.0) gm/dl
[2020-09-01 05:58] LABS: Hematocrit (blood only) 29.2 % (37-47); Hemoglobin 9.7 g/dL (12.0-16.0); Mean Corpuscular Hemoglobin 30.1 pg (25-34); Mean Corpuscular Hgb Conc 33.2 g/dL (32-36); Mean Corpuscular Volume 90.7 fL (80-100); Mean Platelet Volume 9.1 fL (7.4-10.4); Nucleated RBC # (auto) 0.03 K/uL (0-0); Nucleated RBC % (auto) 0.4 %; Platelet Count 240 K/uL (130-400); RDW Coefficient of Variation 17.2 % (11.5-14.5); RDW Standard Deviation 55.2 fL (36.4-46.3); Red Blood Count 3.22 M/uL (4.2-5.4); White Blood Count 7.87 K/uL (4.8-10.8)
[2020-09-01 06:31] LABS: Albumin Level 2.9 gm/dl (3.4-5.0); BUN Creatinine Ratio 14.6 (10-20); Calcium 8.3 mg/dl (8.5-10.1); Creatinine Clr Calc Pharmacy 138.5 ml/min; Est GFR (African American) 132.2; Est GFR (Non-African American) 114.1; Magnesium 1.7 mg/dl (1.8-2.4); Potassium 4.2 mmol/L (3.5-5.1)
[2020-09-01 06:38] LABS: Albumin Globulin Ratio 0.9 (0.9-2); Bilirubin,Total 0.2 mg/dl (0.2-1); Globulin 3.4 gm/dl (2.5-4.0); Total Protein 6.3 gm/dl (6.4-8.2)
[2020-09-01] MEDS: SODIUM CHLORIDE 0.9% 1000ML 1,000 ML IV SCH ×2 (07:19→11:17)
[2020-09-01] MEDS: dexAMETHasone 4 MG TAB PO SCH ×2 (08:50→14:41)
[2020-09-01] MEDS: MoRPHine SULFATE CR 15 MG TABCR PO SCH ×2 (08:50→19:37)
[2020-09-01] MEDS: levETIRAcetam 500 MG TAB PO SCH ×2 (08:51→19:38)
[2020-09-01] MEDS: FLUDROCORTISONE ACETATE 0.1 MG TAB PO SCH (08:51)
[2020-09-01] MEDS: MIDODRINE HCL 10 MG TAB PO SCH ×3 (08:51→18:07)
[2020-09-01] MEDS: FOLIC ACID 1 MG TAB PO SCH (08:51)
[2020-09-01] MEDS: MAGNESIUM CHLORIDE 64MG DELAYED REL TAB PO SCH ×2 (10:37→19:38)
[2020-09-01] MEDS: LORazepam 1 MG TAB SL PRN (10:38)
[2020-09-01] MEDS: HEPARIN 100 UNIT/ML 5ML FLUSH FLUSH PRN (11:02)
--- NOTE | 2020-09-01 12:38 | XRay Report ---
XR chest 2V PA/lateral HISTORY: COUGH COMPARISON: Chest 08/27/2020. FINDINGS: Left subclavian Port-A-Cath terminates at the SVC. The heart is normal in size. Prior radha cystectomy. Emphysema. 5 cm right upper lobe mass is again noted. Bilateral breast implants. No new f ocal lung consolidations to suggest pneumonia. No evidence for pulmonary edema. Mild chronic intersti tial thickening at the lung bases. This may be due to vascular crowding from the emphysema. IMPRESSION: 1. No change compared to the prior study. No acute process within the chest. 2. Redemonstration of the right upper lobe mass. ACT 112: Negative or not required by law. Electronically signed by: Obed Rashid M.D. 09/01/2020 12:36 PM
[2020-09-01] MEDS: ENOXAPARIN INJ 40 MG/0.4 ML SYR SQ SCH (14:41)
--- NOTE | 2020-09-01 17:39 | Hospitalist Progress Note ---
Date of Service September 01, 2020 Assessment & Plan (1) Orthostatic lightheadedness: Possible Adrenal insufficiency H/O Metastases to bilateral adrenal glands Brain metastasis with vasogenic edema also likely contributing --CT Head:No acute intracranial abnormality. Prior right-sided craniotomy with encephalomalacia of the right cerebral hemisphere adjacent to the craniotomy site. Unchanged vasogenic edema of the right occipital lobe secondary to the previously mentioned ring-enhancing lesion suggestive of metastasis. Subcentimeter lesion of the left parafalcine parietal lobe, also suggestive of metastasis. -Noted to have low cortisol levels on prior hospitalization at [facility] [place] -Continue midodrine 10 mg TID, fludrocortisone 0.1 mg daily -Prior hospitalist discussed with hematology oncology: Advised to increase dexamethasone to 4 mg BID until outpatient follow-up -Needs steroid taper as outpatient -Will hold IV fluids and monitor BP off IV fluids Hypokalemia Hypomagnesemia Replace electrolytes as needed (2) Elevated LFTs: Hepatic steatosis noted on recent ultrasound Likely chemotherapy contributing as well LFTs slowly improving Monitor (3) Adenocarcinoma of lung: Metastatic abnormal carcinoma of the lung Extensive lymphadenopathy to neck, chest, abdomen, brain metastasis and bilateral adrenal gland metastatic disease S/P frontal craniotomy for tumor resection, radiation therapy Ongoing chemotherapy Follows with Dr. Barillas Currently on Alimta, carboplatin, Keytruda q3 weeks Continue chronic pain meds Due for chemotherapy which will be rescheduled (4) Anxiety: -As per Prior Hospitalist -Patient experiencing high levels of anxiety since cancer diagnosis and also with the resumption of dexamethasone -Was evaluated by palliative care at [facility] [place] who recommended Zyprexa -patient hesitant to start at this time, will let us know if she would like us to prescribe. Patient still not willing to start yet and concerned about further defects with ongoing dizziness and electrolyte abnormalities. -Continue as needed lorazepam (5) Seizure disorder: Continue Keppra (6) DVT prophylaxis: SQ Lovenox Admission and Anticipated Discharge Date Admission Date: August 27, 2020 Subjective Patient is seen and examined at bedside States having persistent intermittent dizziness Feels tired today Minimal cough Has chronic pain which she attributes to cancer Denies shortness of breath, chest pain Review of Systems Review of Systems: All systems reviewed & are unremarkable except as noted in HPI & below Physical Exam Physical Exam: Physical Exam: Vitals signs as noted above General Appearance:Moderately built and nourished, no apparent distress Head: normocephalic, Atraumatic Eyes: normal inspection, EOMI Neck: supple, Trachea midline Respiratory/Chest: Normal breath sounds, CTA, +Left chemo port Cardiovascular: S1, S2, No murmur Abdomen/GI:Soft, Non tender, Bowel sounds present Extremities/Musculoskeletal:normal inspection, no edema Neurologic/Psych:AAOX3, grossly no focal neurological deficits Skin: normal color, warm Results & Data Results & Data ([facility]) Vital Signs (Past 12 Hours) Vital Signs Temp Pulse Resp BP Pulse Ox 09/01/20 06:43 36.6 C 68 18 92/56 L 96 Laboratory Results Short CBC 09/01/20 Range/Units 05:47 WBC 7.87 (4.8-10.8) K/uL Hgb 9.7 L (12.0-16.0) g/dL Hct 29.2 L (37-47) % Plt Count 240 (130-400) K/uL BMP 09/01/20 05:47 Sodium 141 Potassium 4.2 Chloride 110 H Carbon Dioxide 27 BUN 8 Creatinine 0.55 L Glucose 79 Calcium 8.3 L Liver Function 09/01/20 Range/Units 05:47 Total Bilirubin 0.2 (0.2-1) mg/dl AST 41 H (15-37) U/L ALT 171 H (12-78) U/L Alkaline Phosphatase 123 H (45-117) U/L Albumin 2.9 L (3.4-5.0) gm/dl
[2020-09-01] MEDS: oxyCODONE HCL IR 5 MG TAB (IMMEDIATE RELEASE) PO PRN (21:30)
[2020-09-02] MEDS: dexAMETHasone 4 MG TAB PO SCH ×2 (09:01→15:05)
[2020-09-02] MEDS: MIDODRINE HCL 10 MG TAB PO SCH ×2 (09:02→13:42)
[2020-09-02] MEDS: MoRPHine SULFATE CR 15 MG TABCR PO SCH (09:02)
[2020-09-02] MEDS: FLUDROCORTISONE ACETATE 0.1 MG TAB PO SCH (09:02)
[2020-09-02] MEDS: FOLIC ACID 1 MG TAB PO SCH (09:02)
[2020-09-02] MEDS: MAGNESIUM CHLORIDE 64MG DELAYED REL TAB PO SCH (09:02)
[2020-09-02] MEDS: levETIRAcetam 500 MG TAB PO SCH (09:02)
[2020-09-02 09:35] LABS: Albumin Globulin Ratio 0.9 (0.9-2); Albumin Level 3.3 gm/dl (3.4-5.0); BUN Creatinine Ratio 14.2 (10-20); Bilirubin,Total 0.4 mg/dl (0.2-1); Calcium 9.1 mg/dl (8.5-10.1); Est GFR (Non-African American) 101.9; Globulin 3.6 gm/dl (2.5-4.0); Magnesium 1.5 mg/dl (1.8-2.4); Total Protein 6.9 gm/dl (6.4-8.2)
[2020-09-02] MEDS ORDERED: MAGNESIUM SULFATE / D5W 1 GM/100 ML BAG IV ONE (10:00)
[2020-09-02] MEDS ORDERED: NSS + 20MEQ KCL 20 MEQ/1,000 ML BAG IV ONE (10:00)
[2020-09-02] MEDS: POTASSIUM CHLORIDE CRTAB 20 MEQ TABCR PO ONE ×2 (10:16→10:56)
[2020-09-02] MEDS: LORazepam 1 MG TAB SL PRN (10:16)
[2020-09-02] MEDS: POTASSIUM CHLORIDE / WTR 10 MEQ/100 ML PLCT IV SCH ×2 (11:29→12:28)
--- NOTE | 2020-09-02 14:24 | Hospitalist Progress Note ---
Date of Service September 02, 2020 Assessment & Plan (1) Orthostatic lightheadedness: Possible Adrenal insufficiency H/O Metastases to bilateral adrenal glands Brain metastasis with vasogenic edema also likely contributing --CT Head:No acute intracranial abnormality. Prior right-sided craniotomy with encephalomalacia of the right cerebral hemisphere adjacent to the craniotomy site. Unchanged vasogenic edema of the right occipital lobe secondary to the previously mentioned ring-enhancing lesion suggestive of metastasis. Subcentimeter lesion of the left parafalcine parietal lobe, also suggestive of metastasis. -Noted to have low cortisol levels on prior hospitalization at [facility] [place] -Continue midodrine 10 mg TID, fludrocortisone 0.1 mg daily -Prior hospitalist discussed with hematology oncology: Advised to increase dexamethasone to 4 mg BID until outpatient follow-up -Needs steroid taper as outpatient -Received IV fluids -Continue current management Hypokalemia Hypomagnesemia Replace electrolytes as needed (2) Elevated LFTs: Hepatic steatosis noted on recent ultrasound Likely chemotherapy contributing as well LFTs improved Monitor (3) Adenocarcinoma of lung: Metastatic abnormal carcinoma of the lung Extensive lymphadenopathy to neck, chest, abdomen, brain metastasis and bilateral adrenal gland metastatic disease S/P frontal craniotomy for tumor resection, radiation therapy Ongoing chemotherapy Follows with Dr. Barillas Currently on Alimta, carboplatin, Keytruda q3 weeks Continue chronic pain meds Due for chemotherapy which will be rescheduled (4) Anxiety: -As per Prior Hospitalist -Patient experiencing high levels of anxiety since cancer diagnosis and also with the resumption of dexamethasone -Was evaluated by palliative care at [facility] [place] who recommended Zyprexa -patient hesitant to start at this time, will let us know if she would like us to prescribe. Patient still not willing to start yet and concerned about further defects with ongoing dizziness and electrolyte abnormalities. -Continue lorazepam PRN (5) Seizure disorder: Continue Keppra (6) DVT prophylaxis: SQ Lovenox Admission and Anticipated Discharge Date Admission Date: August 27, 2020 Subjective Patient is seen and examined at bedside No new complaints Chronic dizziness Has chronic pain which she attributes to cancer Denies shortness of breath, chest pain, nausea, abd pain Review of Systems Review of Systems: All systems reviewed & are unremarkable except as noted in HPI & below Physical Exam Physical Exam: Physical Exam: Vitals signs as noted above General Appearance:Moderately built and nourished, no apparent distress Head: normocephalic, Atraumatic Eyes: normal inspection, EOMI Neck: supple, Trachea midline Respiratory/Chest: Normal breath sounds, CTA, +Left chemo port Cardiovascular: S1, S2, No murmur Abdomen/GI:Soft, Non tender, Bowel sounds present Extremities/Musculoskeletal:normal inspection, no edema Neurologic/Psych:AAOX3, grossly no focal neurological deficits Skin: normal color, warm Results & Data Results & Data ([facility]) Vital Signs (Past 12 Hours) Vital Signs Temp Pulse Resp BP Pulse Ox 09/02/20 12:36 37.3 C 111 H 18 99/64 L 98 Laboratory Results [facility] 09/02/20 08:47 Sodium 139 Potassium 3.0 L D Chloride 105 Carbon Dioxide 25 BUN 10 Creatinine 0.72 Glucose 132 H Calcium 9.1 Liver Function 09/02/20 Range/Units 08:47 Total Bilirubin 0.4 (0.2-1) mg/dl AST 33 (15-37) U/L ALT 161 H (12-78) U/L Alkaline Phosphatase 134 H (45-117) U/L Albumin 3.3 L (3.4-5.0) gm/dl
[2020-09-02 14:40] LABS: BUN Creatinine Ratio 16.5 (10-20); Calcium 8.5 mg/dl (8.5-10.1); Est GFR (African American) 123.9; Est GFR (Non-African American) 106.9
--- NOTE | 2020-09-02 14:50 | Discharge Summary ---
Date of Service September 02, 2020 Admission HPI Per Admitting Provider 45-year-old female with PMH remote history of breast cancer, current adenocarcinoma of the lung with extensive lymphadenopathy involving neck, chest, abdomen and metastases to brain and bilateral adrenal glands, anxiety, depression, and other problems listed below who presents to the ED for evaluation of lightheadedness. Patient is s/p right frontal craniotomy for brain tumor resection 05/2020, s/p radiation treatments 08/22 and 08/23, current chemotherapy regimen: Alimta, carboplatin, Keytruda every 3 weeks. Patient recently admitted to [facility] 08/16 through 08/21 with [place] [facility] [place]. She was treated for orthostatic hypotension and received radiation therapy to brain metastases while [place] [facility] [place] She was started on midodrine 10 mg 3 times daily. There was concern for adrenal insufficiency and patient was started on dexamethasone taper. She previously was on dexamethasone which was discontinued on 08/13. She was also evaluated by the palliative care team [place] [facility] [place] and was recommended to start Zyprexa for management of anxiety, nausea, sleep aid, reducing polypharmacy. Patient declined to start Zyprexa at that time. Patient reports ongoing issues with lightheadedness and generalized weakness with standing. She denies any syncopal event. She reports increased anxiety and jitteriness due to taking dexamethasone. Reports pain is controlled with current pain medication regimen. Appetite has been good. Denies abdominal pain, nausea, vomiting, diarrhea. No chest pain or shortness of breath. No fevers or chills. Denies urinary symptoms. In the ED, with his today blood pressures are positive. Labs show stable CBC, MG +1.5, elevated LFTs (total bili 0.6, AST 132, ALT 21, alk phos 208). Patient was given IVF, IV magnesium replacement, midodrine, and oxycodone. Admission Exam Per Admitting Provider Physical Exam Constitutional: WD/WN, vitals as above Eyes: PERRL, conjunctivae normal, anicteric sclerae ENMT: external ear and nose normal, oropharynx normal Respiratory: normal respiratory effort, lungs clear to auscultation Cardiovascular: Rate/Rhythm: regular rate and regular rhythm Vessels: normal peripheral pulses Extremities: no edema Chest (Breasts): Chest: + vascular access device or port (left chest - mediport) Gastrointestinal (Abdomen): normal bowel sounds, soft, nontender, no hepatosplenomegaly Musculoskeletal: no cyanosis or clubbing, extremities motor strength 5/5 Skin: no rashes, warm and dry Neurologic: PERRL, EOMI, accommodation nl, no face palsy, no dysarthria Psychiatric: Orientation: alert and oriented x 3 Affect: + tearful affect Principal Diagnosis Orthostatic dizziness Metastatic disease Hypokalemia Hypomagnesemia Discharge Data Allergies Allergy/AdvReac Type Severity Reaction Status Date / Time Penicillins Allergy Intermediate Swelling Verified 08/16/20 10:01 Consultations 08/27/20 10:36 ED Decision to Admit Stat Procedures Performed CT Head:No acute intracranial abnormality. Prior right-sided craniotomy with encephalomalacia of the right cerebral hemisphere adjacent to the craniotomy site. Unchanged vasogenic edema of the right occipital lobe secondary to the previously mentioned ring-enhancing lesion suggestive of metastasis. Subcentimeter lesion of the left parafalcine parietal lobe, also suggestive of metastasis. Ordered Studies 08/27/20 08:18 CT head/brain wo con Stat Hospital Course (1) Orthostatic lightheadedness: Possible Adrenal insufficiency H/O Metastases to bilateral adrenal glands Brain metastasis with vasogenic edema also likely contributing --CT Head:No acute intracranial abnormality. Prior right-sided craniotomy with encephalomalacia of the right cerebral hemisphere adjacent to the craniotomy site. Unchanged vasogenic edema of the right occipital lobe secondary to the previously mentioned ring-enhancing lesion suggestive of metastasis. Subcentimeter lesion of the left parafalcine parietal lobe, also suggestive of metastasis. -Noted to have low cortisol levels on [place] [facility] [place]Continue midodrine 10 mg TID, fludrocortisone 0.1 mg daily -Prior hospitalist discussed with hematology oncology: Advised to increase dexamethasone to 4 mg BID until outpatient follow-up -Needs steroid taper as outpatient -Received IV fluids -Continue current management Hypokalemia Hypomagnesemia Replace electrolytes as needed Increase to continue magnesium supplements upon discharge Refuses to continue PO potassium supplements upon discharge given intolerance as per patient (2) Elevated LFTs: Hepatic steatosis noted on recent ultrasound Likely chemotherapy contributing as well LFTs improved Monitor (3) Adenocarcinoma of lung: Metastatic abnormal carcinoma of the lung Extensive lymphadenopathy to neck, chest, abdomen, brain metastasis and bilateral adrenal gland metastatic disease S/P frontal craniotomy for tumor resection, radiation therapy Ongoing chemotherapy Follows with Dr. Barillas Currently on Alimta, carboplatin, Keytruda q3 weeks Continue chronic pain meds Due for chemotherapy which will be rescheduled (4) Anxiety: -As per Prior Hospitalist -Patient experiencing high levels of anxiety since cancer diagnosis and also with the resumption of dexamethasone -Was evaluated by palliative care [place] [facility] [place] recommended Zyprexa -patient hesitant to start at this time, will let us know if she would like us to prescribe. Patient still not willing to start yet and concerned about further defects with ongoing dizziness and electrolyte abnormalities. -Continue lorazepam PRN (5) Seizure disorder: Continue Keppra (6) DVT prophylaxis: SQ Lovenox Total Time Total Time Spent Total Time Spent (In Minutes): 40 minutes Total Time Includes: Examination of the Patient, Discharge Planning, Medication Reconciliation, Communication With Other Providers and Other Discharge Plan Discharge Items Patient Disposition: Home - Self-Care Reason For Visit: ORTHOSTASIS Discharge Diagnosis: Orthostatic dizziness Metastatic disease Hypokalemia Hypomagnesemia Activity: Per Instructions section Exercise/Sports: Wait until after follow-up appointment Non-emergency contact: Primary Care Provider and Oncologist Call non-emergency contact if: you have any medication questions, your symptoms worsen, your pain is concerning for you and you have a fever Follow-up/Referrals: Jasiel Fritz DO [Primary Care Provider] - (Date & Time 09/04/2020 9:20 AM Provider Jasiel Fritz DO [facility] ) Diet: Regular Ambulatory Orders: Basic Metabolic Panel (Routine) Timeframe: 1 Week Location: Determined by Patient Ordered By: Dario Aguayo Magnesium (Routine) Timeframe: 1 Week Location: Determined by Patient Ordered By: Dario Aguayo Addtl Attending Provider Instructions: Follow-up with your primary care physician Dr. Fritz on 09/04/2020 9:20 AM Follow up with your Oncologist in 1 week as scheduled Get Blood Test( Basic Metabolic Panel and Magnesium levels ) in 1 week and follow up with your physician. Seek immediate medical attention if your symptoms reoccur or worsen Pending Studies at Discharge: No Stand-Alone Forms: Jirafe, Smoking Cessation Medications and DC Order Prescriptions: New dexamethasone 4 mg Tablet 4 mg PO BID@0800,1500 Qty: 60 RF: 0 fludrocortisone 0.1 mg Tablet 0.1 mg PO QAM Qty: 30 RF: 0 magnesium chloride [Mag 64] 64 mg Tablet,Delayed Release (Dr/Ec) 64 mg PO BID Qty: 60 RF: 0 Continued folic acid 1 mg Tablet 1 mg PO QAM RF: 0 ondansetron 8 mg Tablet,Disintegrating 8 mg PO Q8H PRN (Reason: Nausea) RF: 0 prochlorperazine maleate 10 mg Tablet 10 mg PO Q6H PRN (Reason: Nausea) RF: 0 morphine 15 mg Tablet Extended Release 15 mg PO Q12H Qty: 60 RF: 0 polyethylene glycol 3350 [Miralax] 17 gram powder in packet 17 g PO QID PRN (Reason: Constipation) RF: 0 sennosides-docusate sodium [Senokot-S] 8.6-50 mg tablet 1 tab PO BID PRN (Reason: Constipation) RF: 0 docusate sodium 100 mg capsule 100 mg PO BID PRN (Reason: Constipation) RF: 0 oxycodone 5 mg tablet 5 mg PO Q6H PRN (Reason: Pain, Severe) RF: 0 lorazepam [Ativan] 1 mg tablet 1 mg sublingual TID PRN (Reason: anxiety) Qty: 30 RF: 0 levetiracetam 500 mg tablet 1,500 mg PO BID RF: 0 midodrine 10 mg tablet 10 mg PO TID RF: 0 Discontinued dexamethasone 1 mg tablet 0 mg PO DAILY RF: 0 Discharge Orders: Discharge Order (Routine); Ordered 09/02/20 Ordered By: Dario Aguayo Admission Data Admit Date/Time: 08/27/20 11:29 Attending Provider: Dario Aguayo Admit Provider: Abel Stroud Primary Care Provider: Jasiel Fritz Other Providers: Abel Stroud ; Lilly Albright Other Interventions: Discharge Summary Assessment (RN) Last Done: 09/02/20 12:36
[2020-09-02] MEDS: HEPARIN 100 UNIT/ML 5ML FLUSH FLUSH PRN (15:05)
[2020-09-02] MEDS: ENOXAPARIN INJ 40 MG/0.4 ML SYR SQ SCH (15:19)
== END 2020-09-02 15:20 | disposition home or self-care (01) | DRG 644 ==
LOC: ED 07:43 → SUATTDRO 11:29 → 2N 11:29

== ENCOUNTER 2020-10-16 20:22 | Inpatient (IN) ==
[2020-10-16] MEDS ORDERED: ONDANSETRON INJ 2 MG/ML 2 ML VIAL IV STA (22:23)
[2020-10-16] MEDS ORDERED: HYDROmorphone INJ 0.5 MG/0.5 ML SYR IV STA (22:23)
[2020-10-16] MEDS ORDERED: GI COCKTAIL ED USE PO ONE (22:23)
[2020-10-16] MEDS ORDERED: FAMOTIDINE 20MG IV PUSH 20 MG/5 ML SYR IV STA (22:23)
--- NOTE | 2020-10-16 22:28 | Emergency Department Note ---
History of Present Illness General Chief complaint: Abdominal Pain Stated complaint: ABDOMINAL PAIN Time Seen by Provider: 10/16/20 22:12 History of Present Illness Maximum Pain Intensity: 7 This is a 45-year-old female presenting to the emergency department for evaluation of upper abdominal pain worsening over the past 3 to 4 days. The patient has a history of breast cancer with metastasis. She last had chemotherapy 5 weeks ago. She states that chemotherapy has been paused as she had elevated liver function tests recently. She started 80 mg daily of steroids 4 days ago, and believes this may have started to make her feel worse. The patient started Prilosec yesterday after discussing symptoms with her primary care physician. She has not had fevers or chills. No chest pain, chest tightness, or shortness of breath. No lower abdominal pain. She is reported to be eating, drinking, and using the bathroom as normal. She is concerned that her urine today might be more concentrated than normal. She does have a past history of constipation as she is on large doses of oxycodone and extended release morphine at home. She did take milk of magnesia and did have a bowel mo vement yesterday. She rates her current discomfort a 6/10, sharp, and nonradiating in the epigastric region. Home Medications Medication Instructions Recorded Confirmed Type folic acid 1 mg PO QAM 07/09/20 10/17/20 History ondansetron 8 mg PO Q8H PRN 07/09/20 10/17/20 History prochlorperazine maleate 10 mg PO Q6H PRN 07/09/20 10/17/20 History morphine 15 mg PO Q12H #60 tab 07/16/20 10/17/20 Rx polyethylene glycol 3350 [Miralax] 17 g PO QID PRN 07/23/20 10/17/20 History sennosides-docusate sodium 1 tab PO BID PRN 07/23/20 10/17/20 History [Senokot-S] docusate sodium 100 mg PO BID PRN 07/29/20 10/17/20 History oxycodone 5 mg PO Q6H PRN 07/29/20 10/17/20 History levetiracetam 1,500 mg PO BID 08/16/20 10/17/20 History midodrine 10 mg PO TID 08/27/20 10/17/20 History fludrocortisone 0.1 mg PO QAM #30 tab 09/02/20 10/17/20 Rx magnesium chloride [Mag 64] 64 mg PO BID #60 tab 09/02/20 10/17/20 Rx metoclopramide HCl 5 mg PO AC 09/04/20 10/17/20 History dexamethasone 4 mg PO BID@0900,1530 09/08/20 10/17/20 History diclofenac sodium 75 mg PO BID 10/17/20 10/17/20 History lorazepam 1 mg PO TID PRN 10/17/20 10/17/20 History prednisone 80 mg PO DAILY 10/17/20 10/17/20 History Allergies Allergy/AdvReac Type Severity Reaction Status Date / Time Penicillins Allergy Intermediate Swelling Verified 10/17/20 13:38 Past Med/Surg History Medical History Abdominal pain Adenocarcinoma of lung w/ extensive lymphadenopathy in the neck, chest, abdomen; brain and bilateral adrenal metastases Brain metastases BRCA gene positive Hx of breast cancer Palliative care encounter Seizure disorder Due to tumor edematous burden Surgical History H/O bilateral mastectomy H/O craniotomy 05/2020-right frontal craniotomy for brain tumor resection H/O: hysterectomy History of cholecystectomy Family History Aunt Breast cancer Social History Smoking Status: Former smoker Tobacco Type: Cigarettes packs per day: 1; Years Smoked: 23; Second Hand Exposure: No; Hx Alcohol Use: No Hx Substance Use: No Preferred Language: Spanish Communication Ability: Effective Color Paste Mixer Required: No Beliefs That Will Affect Care: None marital status: Current Living Situation: Spouse How many Children do You have: 2 Feels Safe at Home: Yes Safety Concerns: Feels Safe At This Time Assistive Devices: Glasses Review of Systems A total of 10 systems reviewed and were otherwise negative Physical Exam Vital Signs Vital Signs - 24 hr 10/16/20 20:31 10/16/20 23:57 10/16/20 23:59 Temperature 36.7 C Temperature Source Temporal Artery Scan Pulse Rate 117 H 78 81 Pulse Rate [Right Finger] 80 Pulse Rate from SpO2 Sensor 79 81 Respiratory Rate 18 18 22 Respiratory Effort / Characteristics Non-Labored Spontaneous Non-Labored Spontaneous Respiratory Depth Normal Normal Respiratory Pattern Regular Regular Blood Pressure 136/97 134/95 Blood Pressure [Right Arm] 134/95 Blood Pressure Mean 110 108 Blood Pressure Mean [Right Arm] 108 Blood Pressure Position Sitting Blood Pressure Position [Right Arm] Lying Pulse Oximetry 97 95 94 Oxygen Delivery Method Room Air Room Air Sepsis Recent Fever Within 48 Hours No Sepsis New/Unexplained Change in Mental Status No Sepsis Action Taken by Nursing No Action Required 10/17/20 00:00 10/17/20 00:01 10/17/20 00:28 Temperature Temperature Source Pulse Rate 79 77 95 H Pulse Rate [Right Finger] Pulse Rate from SpO2 Sensor 80 77 93 H Respiratory Rate 22 23 16 Respiratory Effort / Characteristics Respiratory Depth Respiratory Pattern Blood Pressure 118/88 132/100 Blood Pressure [Right Arm] Blood Pressure Mean 98 110 Blood Pressure Mean [Right Arm] Blood Pressure Position Blood Pressure Position [Right Arm] Pulse Oximetry 93 95 96 Oxygen Delivery Method Sepsis Recent Fever Within 48 Hours Sepsis New/Unexplained Change in Mental Status Sepsis Action Taken by Nursing 10/17/20 00:30 10/17/20 00:31 10/17/20 01:00 Temperature Temperature Source Pulse Rate 87 84 95 H Pulse Rate [Right Finger] Pulse Rate from SpO2 Sensor 87 86 95 H Respiratory Rate 22 20 Respiratory Effort / Characteristics Respiratory Depth Respiratory Pattern Blood Pressure 130/93 131/90 Blood Pressure [Right Arm] Blood Pressure Mean 105 103 Blood Pressure Mean [Right Arm] Blood Pressure Position Blood Pressure Position [Right Arm] Pulse Oximetry 98 96 97 Oxygen Delivery Method Sepsis Recent Fever Within 48 Hours Sepsis New/Unexplained Change in Mental Status Sepsis Action Taken by Nursing 10/17/20 01:01 10/17/20 01:30 10/17/20 01:31 Temperature Temperature Source Pulse Rate 84 77 87 Pulse Rate [Right Finger] Pulse Rate from SpO2 Sensor 86 78 89 Respiratory Rate 19 16 20 Respiratory Effort / Characteristics Respiratory Depth Respiratory Pattern Blood Pressure 127/75 Blood Pressure [Right Arm] Blood Pressure Mean 92 Blood Pressure Mean [Right Arm] Blood Pressure Position Blood Pressure Position [Right Arm] Pulse Oximetry 98 91 96 Oxygen Delivery Method Sepsis Recent Fever Within 48 Hours Sepsis New/Unexplained Change in Mental Status Sepsis Action Taken by Nursing 10/17/20 02:00 10/17/20 02:01 Temperature Temperature Source Pulse Rate 97 H 74 Pulse Rate [Right Finger] Pulse Rate from SpO2 Sensor 96 H 75 Respiratory Rate 24 12 Respiratory Effort / Characteristics Respiratory Depth Respiratory Pattern Blood Pressure 109/75 Blood Pressure [Right Arm] Blood Pressure Mean 86 Blood Pressure Mean [Right Arm] Blood Pressure Position Blood Pressure Position [Right Arm] Pulse Oximetry 92 95 Oxygen Delivery Method Sepsis Recent Fever Within 48 Hours Sepsis New/Unexplained Change in Mental Status Sepsis Action Taken by Nursing VITALS: Vitals are noted on the nurse's note and reviewed by myself. Vital signs stable. GENERAL: Well-developed, well-nourished, white female, who is in no acute dis tress and resting comfortably. Patient is cooperative with the examination. HEAD: Normocephalic atraumatic. HEART: Regular rate and rhythm without murmurs gallops or rubs. LUNGS: Clear to auscultation bilaterally without wheezes, rales or rhonchi. No retractions or accessory muscle use. ABDOMEN: Positive normal bowel sounds x 4. Soft with mild epigastric tenderness. No obvious masses or organomegaly. No guarding or rebound tenderness. No CVA tenderness. MUSCULOSKELETAL: No muscle atrophy, erythema, or edema noted. Full range of motion in all extremities. NEURO: Patient was alert and oriented to person place and time. CN II through XII grossly intact. Course Administered Medications Fludrocortisone Acetate (Fludrocortisone Acetate 0.1 Mg Tab) [facility] [place] Stop: 11/16/20 08:59 Last Admin: 10/19/20 08:07 Dose: 0.1 mg Documented by: [id number] Admin: 10/18/20 07:29 Dose: 0.1 mg Documented by: [id number] Admin: 10/17/20 09:08 Dose: 0.1 mg Documented by: [id number] Folic Acid (Folic Acid 1 Mg Tab) [facility] [place] Stop: 11/16/20 08:59 Last Admin: 10/19/20 08:07 Dose: 1 mg Documented by: [id number] Admin: 10/18/20 07:29 Dose: 1 mg Documented by: [id number] Admin: 10/17/20 09:09 Dose: 1 mg Documented by: [id number] Heparin Sodium (Porcine) (Heparin 100 Unit/Ml 5ml Flush) 5 ml FLUSH PRN PRN PRN Reason: Flush Stop: 11/16/20 05:26 Last Admin: 10/19/20 23:30 Dose: 5 ml Documented by: [id number] Admin: 10/19/20 06:40 Dose: 5 ml Documented by: [id number] Admin: 10/19/20 03:25 Dose: 5 ml Documented by: [id number] Admin: 10/18/20 21:31 Dose: 5 ml Documented by: [id number] Admin: 10/18/20 18:35 Dose: 5 ml Documented by: [id number] Hydromorphone HCl (Hydromorphone Inj 0.5 Mg/0.5 Ml Syr) 1 mg IV Q2H PRN PRN Reason: Pain Stop: 11/01/20 04:15 Last Admin: 10/19/20 23:29 Dose: 1 mg Documented by: [id number] Admin: 10/19/20 18:20 Dose: 1 mg Documented by: [id number] Admin: 10/19/20 11:28 Dose: 1 mg Documented by: [id number] Admin: 10/19/20 08:59 Dose: 1 mg Documented by: [id number] Admin: 10/19/20 06:39 Dose: 1 mg Documented by: [id number] Admin: 10/19/20 03:24 Dose: 1 mg Documented by: [id number] Admin: 10/18/20 21:30 Dose: 1 mg Documented by: [id number] Admin: 10/18/20 18:00 Dose: 1 mg Documented by: [id number] Admin: 10/18/20 13:21 Dose: 1 mg Documented by: [id number] Admin: 10/18/20 11:07 Dose: 1 mg Documented by: [id number] Hydromorphone HCl (Hydromorphone Hcl 2 Mg Tab) 2 mg PO Q4H PRN PRN Reason: Pain Stop: 11/02/20 12:22 Last Admin: 10/19/20 21:41 Dose: 2 mg Documented by: [id number] Admin: 10/19/20 17:01 Dose: 2 mg Documented by: [id number] Levetiracetam (Levetiracetam 500 Mg Tab) 1,500 mg PO BID KAMILA Stop: 11/16/20 08:59 Last Admin: 10/19/20 21:41 Dose: 1,500 mg Documented by: [id number] Admin: 10/19/20 08:07 Dose: 1,500 mg Documented by: [id number] Admin: 10/18/20 21:30 Dose: 1,500 mg Documented by: [id number] Admin: 10/18/20 07:28 Dose: 1,500 mg Documented by: [id number] Admin: 10/17/20 20:51 Dose: 1,500 mg Documented by: [id number] Admin: 10/17/20 09:08 Dose: 1,000 mg Documented by: [id number] Lorazepam (Lorazepam 1 Mg Tab) 1 mg PO TID PRN PRN Reason: Anxiety Stop: 11/16/20 04:16 Last Admin: 10/18/20 03:19 Dose: 1 mg Documented by: [id number] Admin: 10/17/20 05:09 Dose: 1 mg Documented by: [id number] Midodrine (Midodrine Hcl 10 Mg Tab) 10 mg PO TID@0700,1300,1800 K[facility] Stop: 11/16/20 06:59 Last Admin: 10/19/20 17:50 Dose: 10 mg Documented by: [id number] Admin: 10/19/20 13:14 Dose: 10 mg Documented by: [id number] Admin: 10/19/20 06:23 Dose: Not Given Documented by: [id number] Admin: 10/18/20 18:00 Dose: 10 mg Documented by: [id number] Admin: 10/18/20 13:16 Dose: 10 mg Documented by: [id number] Admin: 10/18/20 06:27 Dose: 10 mg Documented by: [id number] Admin: 10/17/20 17:44 Dose: Not Given Documented by: [id number] Admin: 10/17/20 12:24 Dose: Not Given Documented by: [id number] Admin: 10/17/20 06:34 Dose: 10 mg Documented by: [id number] Morphine Sulfate (Morphine Sulfate Cr 15 Mg Tabcr) 15 mg PO Q8H K[facility]ILA Stop: 11/01/20 15:29 Last Admin: 10/19/20 23:27 Dose: 15 mg Documented by: [id number] Admin: 10/19/20 15:56 Dose: 15 mg Documented by: [id number] Admin: 10/19/20 08:06 Dose: 15 mg Documented by: [id number] Admin: 10/18/20 22:47 Dose: 15 mg Documented by: [id number] Admin: 10/18/20 15:32 Dose: Not Given Documented by: [id number] Ondansetron HCl (Ondansetron Inj 2 Mg/Ml 2 Ml Vial) 4 mg IV Q6H PRN PRN Reason: Nausea And Vomiting Stop: 11/16/20 23:46 Last Admin: 10/17/20 23:52 Dose: 4 mg Documented by: [id number] Prednisone (Prednisone 20 Mg Tab) 60 mg PO DAILY K[facility]ILA Stop: 11/18/20 08:59 Last Admin: 10/19/20 08:07 Dose: 60 mg Documented by: [id number] Senna/Docusate Sodium (Docusate Sodium/Senna 50/8.6mg Tab) 1 tab PO BID KAMILA Stop: 11/16/20 03:34 Last Admin: 10/19/20 21:41 Dose: 1 tab Documented by: [id number] Admin: 10/19/20 08:08 Dose: 1 tab Documented by: [id number] Admin: 10/18/20 21:30 Dose: 1 tab Documented by: [id number] Admin: 10/18/20 07:28 Dose: 1 tab Documented by: [id number] Admin: 10/17/20 20:52 Dose: 1 tab Documented by: [id number] Admin: 10/17/20 09:08 Dose: 1 tab Documented by: [id number] Admin: 10/17/20 04:39 Dose: 1 tab Documented by: [id number] Discontinued Medications Al Hydrox/Mg Hydrox/Simethicone (Gi Cocktail Ed Use) 1 dose PO ONE ONE Stop: 10/16/20 22:24 Last Admin: 10/16/20 23:18 Dose: 1 dose Documented by: [id number] Fentanyl Citrate (Fentanyl Citrate 100 Mcg/2 Ml Vial) 50 mcg IV Q5M PRN PRN Reason: PACU Use Only-Pain Stop: 10/17/20 21:51 Last Admin: 10/17/20 16:02 Dose: 50 mcg Documented by: [id number] Admin: 10/17/20 15:55 Dose: 50 mcg Documented by: [id number] Hydromorphone HCl (Hydromorphone Inj 0.5 Mg/0.5 Ml Syr) 0.5 mg IV NOW STA Stop: 10/16/20 22:24 Last Admin: 10/16/20 23:04 Dose: 0.5 mg Documented by: [id number] Hydromorphone HCl (Hydromorphone Inj 0.5 Mg/0.5 Ml Syr) 0.5 mg IV Q5M PRN PRN Reason: Pain Stop: 10/17/20 21:51 Last Admin: 10/17/20 16:57 Dose: 0.5 mg Documented by: [id number] Admin: 10/17/20 16:52 Dose: 0.5 mg Documented by: [id number] Admin: 10/17/20 16:47 Dose: 0.5 mg Documented by: [id number] Admin: 10/17/20 16:40 Dose: 0.5 mg Documented by: [id number] Hydromorphone HCl (Hydromorphone Inj 0.5 Mg/0.5 Ml Syr) Confirm Administered Dose 2 mg .ROUTE .STK-MED ONE Stop: 10/17/20 16:40 Last Admin: 10/17/20 17:43 Dose: Not Given Documented by: [id number] Hydromorphone HCl (Hydromorphone Inj 0.5 Mg/0.5 Ml Syr) 0.5 mg IV Q3H PRN PRN Reason: Pain Stop: 11/01/20 04:15 Last Admin: 10/18/20 07:29 Dose: 0.5 mg Documented by: [id number] Admin: 10/18/20 04:27 Dose: 0.5 mg Documented by: [id number] Famotidine (Pepcid 20mg Iv Push) 20 mg in 5 mls @ 2.5 mls/min IV NOW STA Stop: 10/16/20 22:24 Last Admin: 10/16/20 23:05 Dose: 2.5 mls/min Documented by: [id number] Sodium Chloride (Nss 1000ml) 1,000 mls @ 999 mls/hr IV .Q1H1M K[facility]ILA Stop: 10/16/20 23:30 Last Infusion: 10/17/20 00:22 Dose: 0 mls/hr Documented by: [id number] Admin: 10/16/20 23:16 Dose: 999 mls/hr Documented by: [id number] Potassium Chloride 40 meq/ (Lactated Ringer's) 1,020 mls @ 200 mls/hr IV .Q5H6M ONE Stop: 10/17/20 05:50 Last Infusion: 10/17/20 05:38 Dose: 0 mls/hr Documented by: [id number] Admin: 10/17/20 01:55 Dose: 200 mls/hr Documented by: [id number] Potassium Chloride 20 meq/ (Lactated Ringer's) 1,010 mls @ 200 mls/hr IV .Q5H3M KAMILA Stop: 11/16/20 05:59 Last Admin: 10/18/20 08:27 Dose: Not Given Documented by: [id number] Infusion: 10/18/20 08:25 Dose: 0 mls/hr Documented by: [id number] Admin: 10/18/20 03:15 Dose: 200 mls/hr Documented by: [id number] Infusion: 10/18/20 03:14 Dose: 200 mls/hr Documented by: [id number] Admin: 10/17/20 22:11 Dose: 200 mls/hr Documented by: [id number] Infusion: 10/17/20 22:11 Dose: 200 mls/hr Documented by: [id number] Admin: 10/17/20 17:31 Dose: 200 mls/hr Documented by: [id number] Infusion: 10/17/20 17:30 Dose: 0 mls/hr Documented by: [id number] Admin: 10/17/20 11:45 Dose: 200 mls/hr Documented by: [id number] Infusion: 10/17/20 11:38 Dose: 200 mls/hr Documented by: [id number] Infusion: 10/17/20 06:35 Dose: 200 mls/hr Documented by: [id number] Infusion: 10/17/20 05:39 Dose: 0 mls/hr Documented by: [id number] Admin: 10/17/20 05:38 Dose: 200 mls/hr Documented by: [id number] Magnesium Sulfate/Dextrose (Magnesium Sulfate / D5w) 1 gm in 100 mls @ 50 mls/hr IV ONE ONE Stop: 10/17/20 05:34 Last Infusion: 10/17/20 07:52 Dose: 0 mls/hr Documented by: [id number] Infusion: 10/17/20 06:35 Dose: 50 mls/hr Documented by: [id number] Infusion: 10/17/20 05:38 Dose: 0 mls/hr Documented by: [id number] Admin: 10/17/20 04:38 Dose: 50 mls/hr Documented by: [id number] Ciprofloxacin (Cipro / D5w) 400 mg in 200 mls @ 100 mls/hr IV PREOP KAMILA; Protocol Stop: 10/18/20 05:59 Last Infusion: 10/17/20 17:31 Dose: 0 mls/hr Documented by: [id number] Admin: 10/17/20 14:00 Dose: 100 mls/hr Documented by: [id number] Ciprofloxacin (Cipro / D5w) 400 mg in 200 mls @ 100 mls/hr IV Q12H KAMILA; Protocol Stop: 10/19/20 01:59 Last Infusion: 10/18/20 15:19 Dose: 0 mls/hr Documented by: [id number] Admin: 10/18/20 13:17 Dose: 100 mls/hr Documented by: [id number] Infusion: 10/18/20 03:20 Dose: 0 mls/hr Documented by: [id number] Admin: 10/18/20 01:18 Dose: 100 mls/hr Documented by: [id number] Indomethacin (Indomethacin 50 Mg Supp) Confirm Administered Dose 100 mg PA .STK- MED ONE Stop: 10/17/20 13:42 Last Admin: 10/17/20 15:24 Dose: 100 mg Documented by: [id number] Ketorolac Tromethamine (Ketorolac Tromethamine 15 Mg/Ml Vial) 15 mg IV NOW ONE Stop: 10/17/20 01:13 Last Admin: 10/17/20 01:32 Dose: 15 mg Documented by: [id number] Morphine Sulfate (Morphine Sulfate 4 Mg/Ml 1 Ml Carp\Vial) 4 mg IV Q4H PRN PRN Reason: Pain Stop: 10/31/20 01:54 Last Admin: 10/18/20 01:17 Dose: 4 mg Documented by: [id number] Admin: 10/17/20 20:52 Dose: 4 mg Documented by: [id number] Admin: 10/17/20 17:40 Dose: 4 mg Documented by: [id number] Admin: 10/17/20 11:45 Dose: 4 mg Documented by: [id number] Admin: 10/17/20 07:49 Dose: 4 mg Documented by: [id number] Admin: 10/17/20 03:49 Dose: 4 mg Documented by: [id number] Morphine Sulfate (Morphine Sulfate Cr 15 Mg Tabcr) 15 mg PO Q12 K[facility]A Stop: 10/31/20 08:59 Last Admin: 10/18/20 07:29 Dose: 15 mg Documented by: [id number] Admin: 10/17/20 22:11 Dose: 15 mg Documented by: [id number] Admin: 10/17/20 09:09 Dose: 15 mg Documented by: [id number] Ondansetron HCl (Ondansetron Inj 2 Mg/Ml 2 Ml Vial) 4 mg IV NOW STA Stop: 10/16/20 22:24 Last Admin: 10/16/20 23:11 Dose: 4 mg Documented by: [id number] Oxycodone HCl (Oxycodone Hcl Ir 5 Mg Tab (Immediate Release)) 5 - 10 mg PO QID PRN PRN Reason: Pain Stop: 10/31/20 01:54 Last Admin: 10/18/20 15:37 Dose: 10 mg Documented by: [id number] Admin: 10/18/20 09:43 Dose: 10 mg Documented by: [id number] Admin: 10/18/20 04:10 Dose: 10 mg Documented by: [id number] Admin: 10/18/20 00:00 Dose: 10 mg Documented by: [id number] Admin: 10/17/20 06:34 Dose: 10 mg Documented by: [id number] Potassium Chloride (Potassium Chloride 20 Meq/15 Ml Udc) 40 meq PO NOW STA Stop: 10/17/20 01:14 Last Admin: 10/17/20 01:32 Dose: 40 meq Documented by: [id number] Prednisone (Prednisone 20 Mg Tab) 80 mg PO DAILY KAMILA Stop: 10/26/20 23:59 Last Admin: 10/18/20 07:29 Dose: 80 mg Documented by: [id number] Admin: 10/17/20 09:08 Dose: 80 mg Documented by: [id number] Medical Decision Making Differential Diagnosis Differential diagnosis: Etiologies such as biliary colic, cholecystitis, hepatitis, pancreatitis, ca rdiac disease, pancreatitis, gastritis, peptic ulcer disease, appendicitis, cystitis, diverticulitis, mesenteric ischemia, inflammatory bowel disease, ileus, bowel obstruction, testicular/adnexal torsion, aortic pathology, shingles, as well as others were considered Laboratory Data Result diagrams: 10/19/20 07:37 10/19/20 07:37 Lab Results 10/16/20 10/16/20 10/16/20 Range/Units 22:35 22:35 22:35 WBC 9.80 (4.8-10.8) K/uL RBC 3.26 L (4.2-5.4) M/uL Hgb 11.1 L (12.0-16.0) g/dL Hct 31.7 L (37-47) % MCV 97.2 (80-100) fL MCH 34.0 (25-34) pg MCHC 35.0 (32-36) g/dL RDW Std Deviation 62.8 H (36.4-46.3) fL RDW Coeff of Suri 17.5 H (11.5-14.5) % Plt Count 156 (130-400) K/uL MPV 9.6 (7.4-10.4) fL Immature Gran % (Auto) 1.7 % Neut % (Auto) 78.3 % Lymph % (Auto) 10.8 % [place] % (Auto) 9.0 % Eos % (Auto) 0.1 % Baso % (Auto) 0.1 % Neut # (Auto) 7.67 H (1.4-6.5) K/uL Lymph # (Auto) 1.06 L (1.2-3.4) K/uL [place] # (Auto) 0.88 H (0.11-0.59) K/uL Eos # (Auto) 0.01 (0-0.5) K/uL Baso # (Auto) 0.01 (0-0.2) K/uL Immature Gran # (Auto) 0.17 H (0.00-0.02) K/uL Sodium 137 (136-145) mmol/L Potassium 3.2 L (3.5-5.1) mmol/L Chloride 105 (98-107) mmol/L Carbon Dioxide 27 (21-32) mmol/L Anion Gap 6.0 (3-11) BUN 8 (7-18) mg/dl Creatinine 0.44 L (0.6-1.2) mg/dl Est Cr Clr Drug Dosing 183.2 ml/min Est GFR ( Amer) 142.3 ml/min Est GFR (Non-Af Amer) 122.8 ml/min BUN/Creatinine Ratio 17.9 (10-20) Glucose 158 H (70-99) mg/dl Calcium 9.0 (8.5-10.1) mg/dl Magnesium 1.9 (1.8-2.4) mg/dl Total Bilirubin 4.7 H (0.2-1) mg/dl AST 189 H (15-37) U/L ALT 969 H (12-78) U/L Alkaline Phosphatase 452 H (45-117) U/L Troponin I < 0.015 (0-0.045) ng/ml Total Protein 6.8 (6.4-8.2) gm/dl Albumin 2.6 L (3.4-5.0) gm/dl Globulin 4.2 H (2.5-4.0) gm/dl Albumin/Globulin Ratio 0.6 L (0.9-2) Amylase 128 H (25-115) U/L Lipase 1054 H (73-393) U/L Urine Color Urine Appearance (Clear) Urine pH (4.5-7.5) Ur Specific [place] (1.000-1.030) Urine Protein (Negative) Urine Glucose (UA) (Negative) Urine Ketones (Negative) Urine Blood (Negative) Urine Nitrite (Negative) Urine Bilirubin (Negative) Urine Urobilinogen (Negative) Ur Leukocyte Esterase (Negative) POC Ur Test (NEG) Urine Opiates Screen (Neg) U Codeine Confrm GC/MS (<50) ng/mL Ur Morphine (GC/MS) (<50) ng/mL Ur Hydrocodone (GC/MS) (<50) ng/mL Ur Norhydrocodone (<50) ng/mL Ur Noroxycodone (<50) ng/mL Urine Oxycodone (GC/MS) (<50) ng/mL U Oxymorphone GC/MS (<50) ng/mL Ur Methadone, Qual (Neg) Ur Hydromorphone (GC/MS) (<50) ng/mL Urine Barbiturates (Neg) Ur Phencyclidine (PCP) (Neg) U Amphetamin/Meth Scrn (Neg) MDMA (Ecstasy) Screen (Neg) U Benzodiazepines Scrn (Neg) Ur Cocaine Metabolite (Neg) U Marijuana (THC) Screen (Neg) Drug Screen Comment Ethyl Alcohol mg/dL (0-3) mg/dl COVID-19 Eval Order SARS-CoV-2 (PCR) (Negative) 10/16/20 10/16/20 10/16/20 Range/Units 22:35 23:20 23:27 WBC (4.8-10.8) K/uL RBC (4.2-5.4) M/uL Hgb (12.0-16.0) g/dL Hct (37-47) % MCV (80-100) fL MCH (25-34) pg MCHC (32-36) g/dL RDW Std Deviation (36.4-46.3) fL RDW Coeff of Suri (11.5-14.5) % Plt Count (130-400) K/uL MPV (7.4-10.4) fL Immature Gran % (Auto) % Neut % (Auto) % Lymph % (Auto) % [place] % (Auto) % Eos % (Auto) % Baso % (Auto) % Neut # (Auto) (1.4-6.5) K/uL Lymph # (Auto) (1.2-3.4) K/uL [place] # (Auto) (0.11-0.59) K/uL Eos # (Auto) (0-0.5) K/uL Baso # (Auto) (0-0.2) K/uL Immature Gran # (Auto) (0.00-0.02) K/uL Sodium (136-145) mmol/L Potassium (3.5-5.1) mmol/L Chloride (98-107) mmol/L Carbon Dioxide (21-32) mmol/L Anion Gap (3-11) BUN (7-18) mg/dl Creatinine (0.6-1.2) mg/dl Est Cr Clr Drug Dosing ml/min Est GFR ( Amer) ml/min Est GFR (Non-Af Amer) ml/min BUN/Creatinine Ratio (10-20) Glucose (70-99) mg/dl Calcium (8.5-10.1) mg/dl Magnesium (1.8-2.4) mg/dl Total Bilirubin (0.2-1) mg/dl AST (15-37) U/L ALT (12-78) U/L Alkaline Phosphatase (45-117) U/L Troponin I (0-0.045) ng/ml Total Protein (6.4-8.2) gm/dl Albumin (3.4-5.0) gm/dl Globulin (2.5-4.0) gm/dl Albumin/Globulin Ratio (0.9-2) Amylase (25-115) U/L Lipase (73-393) U/L Urine Color Dark Yellow Urine Appearance Clear (Clear) Urine pH 6.5 (4.5-7.5) Ur Specific [place] 1.011 (1.000-1.030) Urine Protein Negative (Negative) Urine Glucose (UA) 1+ H (Negative) Urine Ketones Negative (Negative) Urine Blood Negative (Negative) Urine Nitrite Negative (Negative) Urine Bilirubin 2+ H (Negative) Urine Urobilinogen Negative (Negative) Ur Leukocyte Esterase Negative (Negative) POC Ur Test NEG (NEG) Urine Opiates Screen (Neg) U Codeine Confrm GC/MS (<50) ng/mL Ur Morphine (GC/MS) (<50) ng/mL Ur Hydrocodone (GC/MS) (<50) ng/mL Ur Norhydrocodone (<50) ng/mL Ur Noroxycodone (<50) ng/mL Urine Oxycodone (GC/MS) (<50) ng/mL U Oxymorphone GC/MS (<50) ng/mL Ur Methadone, Qual (Neg) Ur Hydromorphone (GC/MS) (<50) ng/mL Urine Barbiturates (Neg) Ur Phencyclidine (PCP) (Neg) U Amphetamin/Meth Scrn (Neg) MDMA (Ecstasy) Screen (Neg) U Benzodiazepines Scrn (Neg) Ur Cocaine Metabolite (Neg) U Marijuana (THC) Screen (Neg) Drug Screen Comment Ethyl Alcohol mg/dL < 3.0 (0-3) mg/dl COVID-19 Eval Order SARS-CoV-2 (PCR) (Negative) 10/16/20 10/16/20 10/17/20 Range/Units 23:27 23:27 01:00 WBC (4.8-10.8) K/uL RBC (4.2-5.4) M/uL Hgb (12.0-16.0) g/dL Hct (37-47) % MCV (80-100) fL MCH (25-34) pg MCHC (32-36) g/dL RDW Std Deviation (36.4-46.3) fL RDW Coeff of Suri (11.5-14.5) % Plt Count (130-400) K/uL MPV (7.4-10.4) fL Immature Gran % (Auto) % Neut % (Auto) % Lymph % (Auto) % [place] % (Auto) % Eos % (Auto) % Baso % (Auto) % Neut # (Auto) (1.4-6.5) K/uL Lymph # (Auto) (1.2-3.4) K/uL [place] # (Auto) (0.11-0.59) K/uL Eos # (Auto) (0-0.5) K/uL Baso # (Auto) (0-0.2) K/uL Immature Gran # (Auto) (0.00-0.02) K/uL Sodium (136-145) mmol/L Potassium (3.5-5.1) mmol/L Chloride (98-107) mmol/L Carbon Dioxide (21-32) mmol/L Anion Gap (3-11) BUN (7-18) mg/dl Creatinine (0.6-1.2) mg/dl Est Cr Clr Drug Dosing ml/min Est GFR ( Amer) ml/min Est GFR (Non-Af Amer) ml/min BUN/Creatinine Ratio (10-20) Glucose (70-99) mg/dl Calcium (8.5-10.1) mg/dl Magnesium (1.8-2.4) mg/dl Total Bilirubin (0.2-1) mg/dl AST (15-37) U/L ALT (12-78) U/L Alkaline Phosphatase (45-117) U/L Troponin I (0-0.045) ng/ml Total Protein (6.4-8.2) gm/dl Albumin (3.4-5.0) gm/dl Globulin (2.5-4.0) gm/dl Albumin/Globulin Ratio (0.9-2) Amylase (25-115) U/L Lipase (73-393) U/L Urine Color Urine Appearance (Clear) Urine pH (4.5-7.5) Ur Specific [place] (1.000-1.030) Urine Protein (Negative) Urine Glucose (UA) (Negative) Urine Ketones (Negative) Urine Blood (Negative) Urine Nitrite (Negative) Urine Bilirubin (Negative) Urine Urobilinogen (Negative) Ur Leukocyte Esterase (Negative) POC Ur Test (NEG) Urine Opiates Screen Pos H (Neg) U Codeine Confrm GC/MS NEGATIVE (<50) ng/mL Ur Morphine (GC/MS) 7160 H (<50) ng/mL Ur Hydrocodone (GC/MS) NEGATIVE (<50) ng/mL Ur Norhydrocodone NEGATIVE (<50) ng/mL Ur Noroxycodone 695 H (<50) ng/mL Urine Oxycodone (GC/MS) 587 H (<50) ng/mL U Oxymorphone GC/MS 529 H (<50) ng/mL Ur Methadone, Qual Neg (Neg) Ur Hydromorphone (GC/MS) NEGATIVE (<50) ng/mL Urine Barbiturates Neg (Neg) Ur Phencyclidine (PCP) Neg (Neg) U Amphetamin/Meth Scrn Neg (Neg) MDMA (Ecstasy) Screen Neg (Neg) U Benzodiazepines Scrn Neg (Neg) Ur Cocaine Metabolite Neg (Neg) U Marijuana (THC) Screen Neg (Neg) Drug Screen Comment SEE NOTE Ethyl Alcohol mg/dL (0-3) mg/dl COVID-19 Eval Order Covid19 at [facility] SARS-CoV-2 (PCR) (Negative) 10/17/20 Range/Units 01:00 WBC (4.8-10.8) K/uL RBC (4.2-5.4) M/uL Hgb (12.0-16.0) g/dL Hct (37-47) % MCV (80-100) fL MCH (25-34) pg MCHC (32-36) g/dL RDW Std Deviation (36.4-46.3) fL RDW Coeff of Suri (11.5-14.5) % Plt Count (130-400) K/uL MPV (7.4-10.4) fL Immature Gran % (Auto) % Neut % (Auto) % Lymph % (Auto) % [place] % (Auto) % Eos % (Auto) % Baso % (Auto) % Neut # (Auto) (1.4-6.5) K/uL Lymph # (Auto) (1.2-3.4) K/uL [place] # (Auto) (0.11-0.59) K/uL Eos # (Auto) (0-0.5) K/uL Baso # (Auto) (0-0.2) K/uL Immature Gran # (Auto) (0.00-0.02) K/uL Sodium (136-145) mmol/L Potassium (3.5-5.1) mmol/L Chloride (98-107) mmol/L Carbon Dioxide (21-32) mmol/L Anion Gap (3-11) BUN (7-18) mg/dl Creatinine (0.6-1.2) mg/dl Est Cr Clr Drug Dosing ml/min Est GFR ( Amer) ml/min Est GFR (Non-Af Amer) ml/min BUN/Creatinine Ratio (10-20) Glucose (70-99) mg/dl Calcium (8.5-10.1) mg/dl Magnesium (1.8-2.4) mg/dl Total Bilirubin (0.2-1) mg/dl AST (15-37) U/L ALT (12-78) U/L Alkaline Phosphatase (45-117) U/L Troponin I (0-0.045) ng/ml Total Protein (6.4-8.2) gm/dl Albumin (3.4-5.0) gm/dl Globulin (2.5-4.0) gm/dl Albumin/Globulin Ratio (0.9-2) Amylase (25-115) U/L Lipase (73-393) U/L Urine Color Urine Appearance (Clear) Urine pH (4.5-7.5) Ur Specific [place] (1.000-1.030) Urine Protein (Negative) Urine Glucose (UA) (Negative) Urine Ketones (Negative) Urine Blood (Negative) Urine Nitrite (Negative) Urine Bilirubin (Negative) Urine Urobilinogen (Negative) Ur Leukocyte Esterase (Negative) POC Ur Test (NEG) Urine Opiates Screen (Neg) U Codeine Confrm GC/MS (<50) ng/mL Ur Morphine (GC/MS) (<50) ng/mL Ur Hydrocodone (GC/MS) (<50) ng/mL Ur Norhydrocodone (<50) ng/mL Ur Noroxycodone (<50) ng/mL Urine Oxycodone (GC/MS) (<50) ng/mL U Oxymorphone GC/MS (<50) ng/mL Ur Methadone, Qual (Neg) Ur Hydromorphone (GC/MS) (<50) ng/mL Urine Barbiturates (Neg) Ur Phencyclidine (PCP) (Neg) U Amphetamin/Meth Scrn (Neg) MDMA (Ecstasy) Screen (Neg) U Benzodiazepines Scrn (Neg) Ur Cocaine Metabolite (Neg) U Marijuana (THC) Screen (Neg) Drug Screen Comment Ethyl Alcohol mg/dL (0-3) mg/dl COVID-19 Eval Order SARS-CoV-2 (PCR) NEGATIVE (Negative) Imaging Data Radiologist's Impression: Preliminary Findings Only See Final Report For Complete Findings CT ABDOMEN & PELVIS Without Contrast: Impression: Extensive inflammation about the pancreas. Recommend correlation for acute pancreatitis. Moderate colonic stool burden. Recommend correlation for constipation. Incidental findings: Cholecystectomy. Hysterectomy. ECG Data Attestation: I personally reviewed and interpreted this ECG as follows: Indication: abdominal pain Additional Comments: Sinus rhythm with short PA @[address] elevation Otherwise normal ECG When compared with ECG of 08-SEP-2020 08:03, No significant change was found Prescription Drug Monitoring [place] Drug Monitoring [place] reviewed and findings noted below Prescription Drug Findings: #240 tablets of 5 mg oxycodone, #90 tablets of 1 mg Ativan, and #60 tablets of 15 mg oral morphine in the past 21 days have been filled MDM Narrative Physical exam and history were performed. Nursing notes, EMR, and Medication List were personally reviewed. Patient appears to have epigastric abdominal pain bringing her to the emergency department. The patient is medically complicated with a history of lung cancer with metastasis. She is with some epigastric tenderness on palpation. The patient is highly concerned about pain control, and admits to taking her at home medication earlier and more often than prescribed today. IV access was established and labs were obtained. She was hydrated with normal saline. The patient was given IV 0.5 mg Dilaudid as well as IV Zofran. She was sent to CT scan for further evaluation of her symptoms. An order was placed for continuous cardiac monitoring. The monitor shows a rate of 88 with normal sinus rhythm. The patient's blood work is as above and was reviewed. She does not have a si gnificantly elevated white blood cell count or gross anemia. She is with a notable increase in her LFTs compared to recent blood work including an AST of 189, ALT of 969, and alk phos of 452. Additionally her amylase is 128 and her lipase is 1054, which would correlate with the pancreatitis. Of note she does not have a gallbladder. Urine is without gross evidence of infection. CT scan was reviewed by myself and radiology, and is consistent with acute pancreatitis. Clinically this does correlate with her symptoms and lab results. With assistance of case management I was able to review her recent [facility] outpatient labs, and her LFTs do seem distinctly worse from those labs performed on 10/12/2020. Based on the [facility] labs her AST was 103, alk phos 244, and ALT 411. She did have right upper quadrant ultrasound performed on 09/28/2020 that was unremarkable. Overall the patient does not appear well for discharge home. She continues to be very fixated on pain control and has requested narcotics at every patient interaction. The case was discussed with the on-call [facility] hospitalist, who agreed to evaluate her here in the ER. Please see their dictation for further patient course, plan, and disposition. The chart was completed utilizing [employer] Speech Voice Recognition Software. Grammatical errors, random word insertions, pronoun errors, and incomplete sentences are an occasional consequence of this system due to software limitations, ambient noise, and hardware issues. Any formal questions or concerns about the content, text, or information contained within the body of this dictation should be directly addressed to the provider for clarification. . Impression & Plan Epigastric abdominal pain, Elevated LFTs, Acute pancreatitis Discharge Plan Visit Data Chief Complaint: Abdominal Pain Stated Complaint: ABDOMINAL PAIN ED Provider: Loy Padilla ED Midlevel Provider: Mark Carlson Discharge Problem: Epigastric abdominal pain, Elevated LFTs, Acute pancreatitis Patient Disposition: Admitted As Inpatient Discharge Instructions Interventions: ED Discharge Assessment Last Done: 10/17/20 03:15 Discharge Problem: Acute pancreatitis Qualifiers: Pancreatitis type: unspecified pancreatitis type Acute pancreatitis complication: unspecified Qualified Code(s): K85.90 - Acute pancreatitis without necrosis or infection, unspecified
[2020-10-16] MEDS ORDERED: SODIUM CHLORIDE 0.9% 1000ML 1,000 ML IV SCH (22:30)
[2020-10-16 23:01] LABS: Basophils # (auto) 0.01 K/uL (0-0.2); Basophils % (auto) 0.1 %; Eosinophils # (auto) 0.01 K/uL (0-0.5); Eosinophils % (auto) 0.1 %; Hematocrit (blood only) 31.7 % (37-47); Hemoglobin 11.1 g/dL (12.0-16.0); Immature Granulocytes # (auto) 0.17 K/uL (0.00-0.02); Immature Granulocytes % (auto) 1.7 %; Lymphocytes # (auto) 1.06 K/uL (1.2-3.4); Lymphocytes % (auto) 10.8 %; Mean Corpuscular Volume 97.2 fL (80-100); Mean Platelet Volume 9.6 fL (7.4-10.4); Monocytes # (auto) 0.88 K/uL (0.11-0.59); Neutrophils # (auto) 7.67 K/uL (1.4-6.5); Neutrophils % (auto) 78.3 %; Platelet Count 156 K/uL (130-400); RDW Coefficient of Variation 17.5 % (11.5-14.5); RDW Standard Deviation 62.8 fL (36.4-46.3); Red Blood Count 3.26 M/uL (4.2-5.4)
[2020-10-16 23:20] LABS: Albumin Level 2.6 gm/dl (3.4-5.0); BUN Creatinine Ratio 17.9 (10-20); Creatinine Clr Calc Pharmacy 183.2 ml/min; Est GFR (African American) 142.3 ml/min; Est GFR (Non-African American) 122.8 ml/min; Potassium 3.2 mmol/L (3.5-5.1)
[2020-10-16 23:21] LABS: Amylase 128 U/L (25-115); Magnesium 1.9 mg/dl (1.8-2.4); Troponin I < 0.015 ng/ml (0-0.045)
[2020-10-16 23:23] LABS: Albumin Globulin Ratio 0.6 (0.9-2); Bilirubin,Total 4.7 mg/dl (0.2-1); Globulin 4.2 gm/dl (2.5-4.0); Total Protein 6.8 gm/dl (6.4-8.2)
[2020-10-16 23:33] LABS: Appearance Urine Clear (Clear); Blood Urine Negative (Negative); Color Urine Dark Yellow; Glucose Urine UA 1+ (Negative); Ketones Urine Negative (Negative); Leukocyte Esterase Urine Negative (Negative); Nitrite Urine Negative (Negative); Protein Urine Negative (Negative); Specific Gravity Urine 1.011 (1.000-1.030); Urobilinogen Urine Negative (Negative); pH Urine 6.5 (4.5-7.5)
[2020-10-16 23:46] LABS: Bilirubin Urine 2+ (Negative)
[2020-10-16 23:59] LABS: Amphetamines+Metham, Urine Neg (Neg); Barbiturates, Urine Neg (Neg); Benzodiazepine, Urine Neg (Neg); Cocaine, Urine Neg (Neg); MDMA (Ecstacy), Urine Neg (Neg); Methadone, Urine Neg (Neg); Opiate, Urine Pos (Neg); Phencyclidine, Urine Neg (Neg)
[2020-10-17] MEDS ORDERED: POTASSIUM PHOSPHATE IV ONE (00:45)
[2020-10-17] MEDS ORDERED: [UNRECOGNIZED DRUG - OTHER] IV ONE (00:45)
[2020-10-17] MEDS ORDERED: POTASSIUM CHLORIDE 40 MEQ in LACTATED RINGER'S 1,000 ML IV ONE (01:12)
[2020-10-17] MEDS ORDERED: KETOROLAC TROMETHAMINE 15 MG/ML VIAL IV ONE (01:12)
[2020-10-17] MEDS ORDERED: POTASSIUM CHLORIDE 20 MEQ/15 ML UDC PO STA (01:13)
--- NOTE | 2020-10-17 01:47 | History & Physical Report ---
Date of Service October 17, 2020 Assessment & Plan (1) Acute pancreatitis: Likely biliary Progressive LFT abnormalities since last month. Oncologist initially attributed transaminitis to chemotherapy for which high- dose prednisone was initiated last week. Rule out choledocholithiasis hx NSCLC with brain mets status post stereotactic radiosurgery/brain tumor resection on chemotherapy ongoing steroid Rx, Responding to current treatment as per recent PET scan. hx seizure DSO, stable on regimen history TIA as per records Left breast cancer status post mastectomy, history BRCA gene mutation positivity Hypokalemia secondary to poor p.o. intake Cancer pain on narcotics Orthostatic hypotension on fludrocortisone and midodrine, BP stable Chronic anemia, hemoglobin at baseline Hyperglycemia likely prediabetes/steroid-induced, hemoglobin A1c of 5.31 May 2020 past tobacco abuse GMF Bowel rest, IVF, analgesia MRCP GI consult Re: Pancreatitis, abnormal LFTs N.p.o. until patient seen by GI Replace potassium Notify patient's G oncologist (Dr. Barillas) if transaminitis attributed to biliary tract obstruction for patient to be able to stop current prednisone Rx initiated outpatient for possible chemotherapy induced hepatitis. Patient may then revert to prior Decadron regimen for brain mets. DVT prophylaxis. SCDs RE brain mets Full code Text document was generated using [employer] voice recognition software. It may contain grammatical or spelling errors. Kindly contact undersigned for clarification of any documentation item in question. History of Present Illness Chief Complaint: Abdominal pain Primary Care Provider: Jasiel Fritz DO History obtained from patient and records. Medical history significant for NSCLC with brain mets status post stereotactic radiosurgery, brain tumor resection (05/2020) on steroid Rx on chemotherapy, history seizures, history TIA, breast cancer status post mastectomy, history BRCA gene mutation positivity, chronic anemia (baseline hemoglobin of 11), orthostatic hypotension on fludrocortisone and midodrine, past tobacco abuse. Recent confinement August 2020 for orthostatic lightheadedness, possible adrenal insufficiency. Patient discharged on midodrine and fludrocortisone course. Patient noted to have abnormal LFTs during confinement. Hepatic steatosis on ult rasound. Chemotherapy possibly contributing to transaminitis as per documentation. Outpatient LFT abnormalities worsening from last week. AST 103, ALT 411, alk phos 244. Oncologist concerned about hepatitis from chemotherapy medication. Prednisone at 1 mg/kg/day (80 mg daily) recommended by oncologist. Patient to hold Decadron 4 mg twice daily for brain mets while on prednisone as per documentation. The last few days, patient noted achy epigastric pain without nausea, fever, chills. Usual constipation. No recent EtOH intake. No prior episodes. 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 Allergies Allergy/AdvReac Type Severity Reaction Status Date / Time Penicillins Allergy Intermediate Swelling Verified 10/17/20 00:42 Home Medications Medication Instructions Recorded Confirmed Type folic acid 1 mg PO QAM 07/09/20 10/17/20 History ondansetron 8 mg PO Q8H PRN 07/09/20 10/17/20 History prochlorperazine maleate 10 mg PO Q6H PRN 07/09/20 10/17/20 History morphine 15 mg PO Q12H #60 tab 07/16/20 10/17/20 Rx polyethylene glycol 3350 [Miralax] 17 g PO QID PRN 07/23/20 10/17/20 History sennosides-docusate sodium 1 tab PO BID PRN 07/23/20 10/17/20 History [Senokot-S] docusate sodium 100 mg PO BID PRN 07/29/20 10/17/20 History oxycodone 5 mg PO Q6H PRN 07/29/20 10/17/20 History levetiracetam 1,500 mg PO BID 08/16/20 10/17/20 History midodrine 10 mg PO TID 08/27/20 10/17/20 History fludrocortisone 0.1 mg PO QAM #30 tab 09/02/20 10/17/20 Rx magnesium chloride [Mag 64] 64 mg PO BID #60 tab 09/02/20 10/17/20 Rx metoclopramide HCl 5 mg PO AC 09/04/20 10/17/20 History dexamethasone 4 mg PO BID@0900,1530 09/08/20 10/17/20 History diclofenac sodium 75 mg PO BID 10/17/20 10/17/20 History lorazepam 1 mg PO TID PRN 10/17/20 10/17/20 History prednisone 80 mg PO DAILY 10/17/20 10/17/20 History Past Med/Surg History Medical History Adenocarcinoma of lung w/ extensive lymphadenopathy in the neck, chest, abdomen; brain and bilateral adrenal metastases Brain metastases BRCA gene positive Hx of breast cancer Seizure disorder Due to tumor edematous burden Surgical History H/O bilateral mastectomy H/O craniotomy 05/2020-right frontal craniotomy for brain tumor resection H/O: hysterectomy History of cholecystectomy Family History Aunt Breast cancer Social History Smoking Status: Former smoker Tobacco Type: Cigarettes packs per day: 1; Years Smoked: 23; Second Hand Exposure: No; Hx Alcohol Use: No Hx Substance Use: No Preferred Language: Faroese Communication Ability: Effective Armed Security Officer Required: No Beliefs That Will Affect Care: None marital status: Current Living Situation: Spouse How many Children do You have: 2 Feels Safe at Home: Yes Safety Concerns: Feels Safe At This Time Assistive Devices: Glasses Review of Systems Review of Systems: As per HPI, all 10 systems reviewed, all other ROS negative Physical Exam Physical Exam: GENERAL: uncomfortable, no respiratory distress SKIN: Normal color, warm HEENT: Bespectacled, pink palpebral conjunctivae, no ptosis, dry buccal mucosa NECK : Supple, no tenderness CHEST : CTA, no tenderness HEART : RRR, no obvious murmurs ABDOMEN: Some distention, epigastric tenderness EXTREMITIES : No LE swelling/tenderness, no other conspicuous deformities noted NEUROLOGIC : Coherent, no facial asymmetry, no other gross focality Results & Data Results & Data ([facility]) Vital Signs (Past 12 Hours) Vital Signs Temp Pulse Pulse Resp BP BP Pulse Ox 10/16/20 23:59 80 16 134/95 96 10/16/20 20:31 36.7 C 117 H 18 136/97 97 Laboratory Results Laboratory Results WBC 9.80 K/uL (4.8-10.8) 10/16/20 22:35 RBC 3.26 M/uL (4.2-5.4) L 10/16/20 22:35 Hgb 11.1 g/dL (12.0-16.0) L 10/16/20 22:35 Hct 31.7 % (37-47) L 10/16/20 22: MCV 97.2 fL (80-100) 10/16/20 22: MCH 34.0 pg (25-34) 10/16/20 22: MCHC 35.0 g/dL (32-36) 10/16/20 22: RDW Std Deviation 62.8 fL (36.4-46.3) H 10/16/20 22: RDW Coeff of Suri 17.5 % (11.5-14.5) H 10/16/20 22: Plt Count 156 K/uL (130-400) 10/16/20 22: MPV 9.6 fL (7.4-10.4) 10/16/20 22:35 Immature Gran % (Auto) 1.7 % 10/16/20 22: Neut % (Auto) 78.3 % 10/16/20 22:35 Lymph % (Auto) 10.8 % 10/16/20 22:35 [place] % (Auto) 9.0 % 10/16/20 22:35 Eos % (Auto) 0.1 % 10/16/20 22: Baso % (Auto) 0.1 % 10/16/20: Neut # (Auto) 7.67 K/uL (1.4-6.5) H 10/16/20 22:35 Lymph # (Auto) 1.06 K/uL (1.2-3.4) L 10/16/20 22:35 [place] # (Auto) 0.88 K/uL (0.11-0.59) H 10/16/20 22:35 Eos # (Auto) 0.01 K/uL (0-0.5) 10/16/20 22:35 Baso # (Auto) 0.01 K/uL (0-0.2) 10/16/20 22:35 Immature Gran # (Auto) 0.17 K/uL (0.00-0.02) H 10/16/20 22:35 Sodium 137 mmol/L (136-145) 10/16/20 22:35 Potassium 3.2 mmol/L (3.5-5.1) L 10/16/20 22:35 Chloride 105 mmol/L (98-107) 10/16/20 22:35 Carbon Dioxide 27 mmol/L (21-32) 10/16/20 22:35 Anion Gap 6.0 (3-11) 10/16/20 22:35 BUN 8 mg/dl (7-18) 10/16/20 22:35 Creatinine 0.44 mg/dl (0.6-1.2) L 10/16/20 22:35 Est Cr Clr Drug Dosing 183.2 ml/min 10/16/20 22:35 Est GFR ( Amer) 142.3 ml/min 10/16/20 22:35 Est GFR (Non-Af Amer) 122.8 ml/min 10/16/20 22:35 BUN/Creatinine Ratio 17.9 (10-20) 10/16/20 22:35 Glucose 158 mg/dl (70-99) H 10/16/20 22:35 Calcium 9.0 mg/dl (8.5-10.1) 10/16/20 22: Magnesium 1.9 mg/dl (1.8-2.4) 10/16/20 22:35 Total Bilirubin 4.7 mg/dl (0.2-1) H 10/16/20 22:35 AST 189 U/L (15-37) H 10/16/20 22:35 ALT 969 U/L (12-78) H 10/16/20 22:35 Alkaline Phosphatase 452 U/L (45-117) H 10/16/20 22:35 Troponin I < 0.015 ng/ml (0-0.045) 10/16/20 22:35 Total Protein 6.8 gm/dl (6.4-8.2) 10/16/20 22:35 Albumin 2.6 gm/dl (3.4-5.0) L 10/16/20 22:35 Globulin 4.2 gm/dl (2.5-4.0) H 10/16/20 22:35 Albumin/Globulin Ratio 0.6 (0.9-2) L 10/16/20 22:35 Amylase 128 U/L (25-115) H 10/16/20 22:35 Lipase 1054 U/L (73-393) H 10/16/20 22:35 Urine Color Dark Yellow 10/16/20 23:27 Urine Appearance Clear (Clear) 10/16/20 23: Urine pH 6.5 (4.5-7.5) 10/16/20 23:27 Ur Specific [place] 1.011 (1.000-1.030) 10/16/20 23:27 Urine Protein Negative (Negative) 10/16/20 23: Urine Glucose (UA) 1+ (Negative) H 10/16/20 23: Urine Ketones Negative (Negative) 10/16/20 23: Urine Blood Negative (Negative) 10/16/20 23: Urine Nitrite Negative (Negative) 10/16/20 23: Urine Bilirubin 2+ (Negative) H 10/16/20 23:27 Urine Urobilinogen Negative (Negative) 10/16/20 23:27 Ur Leukocyte Esterase Negative (Negative) 10/16/20 23:27 POC Ur Test NEG (NEG) 10/16/20 23:20 Urine Opiates Screen Pos (Neg) H 10/16/20 23:27 Ur Methadone, Qual Neg (Neg) 10/16/20 23:27 Urine Barbiturates Neg (Neg) 10/16/20 23:27 Ur Phencyclidine (PCP) Neg (Neg) 10/16/20 23:27 U Amphetamin/Meth Scrn Neg (Neg) 10/16/20 23:27 MDMA (Ecstasy) Screen Neg (Neg) 10/16/20 23:27 U Benzodiazepines Scrn Neg (Neg) 10/16/20 23:27 Ur Cocaine Metabolite Neg (Neg) 10/16/20 23:27 U Marijuana (THC) Screen Neg (Neg) 10/16/20 23:27 Ethyl Alcohol mg/dL < 3.0 mg/dl (0-3) 10/16/20 22:35 COVID-19 Eval Order Covid19 at [facility] 10/17/20 01:[address] abdomen pelvis initial read: Extensive inflammation about the pancreas. Correlate with acute pancreatitis. Moderate colonic stool burden. (1) Acute pancreatitis Acute pancreatitis complication: unspecified Pancreatitis type: unspecified pancreatitis type Qualified Code(s): K85.90 - Acute pancreatitis without necrosis or infection, unspecified
[2020-10-17] MEDS ORDERED: PROMETHAZINE HCL 12.5 MG in SODIUM CHLORIDE 0.9% 50 ML IV PRN (03:35)
[2020-10-17] MEDS ORDERED: POLYETHYLENE (MIRALAX) 17 GM PACK PO PRN (03:35)
[2020-10-17] MEDS ORDERED: MAGNESIUM SULFATE / D5W 1 GM/100 ML BAG IV ONE (03:35)
[2020-10-17] MEDS ORDERED: ACETAMINOPHEN 325 MG TAB PO PRN (03:35)
[2020-10-17] MEDS: MoRPHine SULFATE 4 MG/ML 1 ML CARP\\VIAL IV PRN ×5 (03:49→20:52)
[2020-10-17] MEDS: DOCUSATE SODIUM/SENNA 50/8.6MG TAB PO SCH ×3 (04:39→20:52)
[2020-10-17] MEDS: LORazepam 1 MG TAB PO PRN (05:09)
[2020-10-17] MEDS: POTASSIUM CHLORIDE 20 MEQ in LACTATED RINGER'S 1,000 ML IV SCH ×4 (05:38→22:11)
[2020-10-17] MEDS ORDERED: CIPROFLOXACIN / D5W 400 MG/200 ML BAG IV SCH (06:00)
[2020-10-17] MEDS: oxyCODONE HCL IR 5 MG TAB (IMMEDIATE RELEASE) PO PRN (06:34)
[2020-10-17] MEDS: MIDODRINE HCL 10 MG TAB PO SCH ×3 (06:34→17:44)
[2020-10-17 08:01] LABS: Basophils # (auto) 0.02 K/uL (0-0.2); Basophils % (auto) 0.3 %; Eosinophils # (auto) 0.02 K/uL (0-0.5); Eosinophils % (auto) 0.3 %; Hematocrit (blood only) 34.4 % (37-47); Hemoglobin 11.5 g/dL (12.0-16.0); Immature Granulocytes # (auto) 0.19 K/uL (0.00-0.02); Immature Granulocytes % (auto) 2.5 %; Lymphocytes # (auto) 1.13 K/uL (1.2-3.4); Lymphocytes % (auto) 14.8 %; Mean Corpuscular Hemoglobin 33.3 pg (25-34); Mean Corpuscular Hgb Conc 33.4 g/dL (32-36); Mean Corpuscular Volume 99.7 fL (80-100); Mean Platelet Volume 9.4 fL (7.4-10.4); Monocytes # (auto) 0.75 K/uL (0.11-0.59); Monocytes % (auto) 9.9 %; Neutrophils % (auto) 72.2 %; Platelet Count 152 K/uL (130-400); RDW Coefficient of Variation 17.9 % (11.5-14.5); RDW Standard Deviation 65.9 fL (36.4-46.3); Red Blood Count 3.45 M/uL (4.2-5.4); White Blood Count 7.61 K/uL (4.8-10.8)
[2020-10-17 08:29] LABS: Albumin Level 2.5 gm/dl (3.4-5.0); BUN Creatinine Ratio 14.8 (10-20); Calcium 8.7 mg/dl (8.5-10.1); Est GFR (African American) 144.5 ml/min; Est GFR (Non-African American) 124.7 ml/min; Potassium 3.9 mmol/L (3.5-5.1)
[2020-10-17 08:35] LABS: Albumin Globulin Ratio 0.6 (0.9-2); Total Protein 6.5 gm/dl (6.4-8.2)
[2020-10-17] MEDS: levETIRAcetam 500 MG TAB PO SCH ×2 (09:08→20:51)
[2020-10-17] MEDS: FLUDROCORTISONE ACETATE 0.1 MG TAB PO SCH (09:08)
[2020-10-17] MEDS: predniSONE 20 MG TAB PO SCH (09:08)
--- NOTE | 2020-10-17 09:08 | Gastrointestinal Consultation ---
Date of Consultation October 17, 2020 Assessment & Plan (1) Epigastric abdominal pain: This is a 45 y/o female with complicated PMHx including metastatic lung cancer, admitted with upper abd pain, elevated LFTs and lipase. There is question of whether elevated LFTs are from chemotherapy; however will need to r/o gallstone pancreatitis/biliary stone/obstruction. - Await CTAP, MRCP - Analgesia PRN - Antiemetics PRN - IVF - Keep NPO - If rising WBC, fever, consider ABX Thank you for allowing us to participate in the care of this patient. Please call with any acute changes, questions or concerns. Please see addendum below with additional recommendation from my supervising physician. (2) Elevated LFTs: (3) Elevated lipase: Supervising Physician Co-Signing Physician Notes Patient with complicated cancer history including lung and breast cancer. Admitted with abd pain and elevated lft's- she does use narcotics and is requesting narcotics hear PE - dark room and no visible jaundice, abd obese soft nt nd Labs reviewed and imaging reviewed- CT a/p with potential cbd filling defect, mrcp with findings of double duct sign and eh dilation. Potential for ercp pending further review. History of Present Illness Reason for Consultation: pancreatitis, abn lfts Requesting Physician: Dr. Us Attending Physician: Abel Stroud DO History of Present Illness This is a 45 y/o female with PMHx NSCLC with brain mets s/p stereotactic radiosurgery, brain tumor resection (05/2020) on steroid Rx on chemotherapy, history seizures, history TIA, breast cancer status post mastectomy, history BRCA gene mutation positivity, chronic anemia (baseline hemoglobin of 11), orthostatic hypotension on fludrocortisone and midodrine, past tobacco abuse, hepatic steatosis. Recently has had rising LFTs (felt possibly from chemotherapy - Keytruda) and prednisone 80 mg daily was recommended by oncology. US ABD showed hepatic steatosis. She developed intermittent severe bouts of epigastric/upper abd pain, dark urine and calvert stools several days ago and presented to the ER. LFTs have continued to rise, including bilirubin and lipase are also elevated. GI consulted for concern over pancreatitis and elevated LFTs. CTAP and MRCP were obtained but have not been officially read. Labs with stable anemia, no leukocytosis, AST 161, ALT 846, ALP 451, tbili 5, INR 1.0, lipase 1054. Denies n/v, fever, chills, CP, SOB, cough, jaundice, icterus, pruritis. As an outpt she takes occasional oxycodone for cancer-related pain and also diclofenac. No ETOH since Mar 2020. No Tylenol or any other OTC meds. She is s/p cholecystectomy. Allergies Allergy/AdvReac Type Severity Reaction Status Date / Time Penicillins Allergy Intermediate Swelling Verified 10/17/20 00:42 Home Medications Medication Instructions Recorded Confirmed Type folic acid 1 mg PO QAM 07/09/20 10/17/20 History ondansetron 8 mg PO Q8H PRN 07/09/20 10/17/20 History prochlorperazine maleate 10 mg PO Q6H PRN 07/09/20 10/17/20 History morphine 15 mg PO Q12H #60 tab 07/16/20 10/17/20 Rx polyethylene glycol 3350 [Miralax] 17 g PO QID PRN 07/23/20 10/17/20 History sennosides-docusate sodium 1 tab PO BID PRN 07/23/20 10/17/20 History [Senokot-S] docusate sodium 100 mg PO BID PRN 07/29/20 10/17/20 History oxycodone 5 mg PO Q6H PRN 07/29/20 10/17/20 History levetiracetam 1,500 mg PO BID 08/16/20 10/17/20 History midodrine 10 mg PO TID 08/27/20 10/17/20 History fludrocortisone 0.1 mg PO QAM #30 tab 09/02/20 10/17/20 Rx magnesium chloride [Mag 64] 64 mg PO BID #60 tab 09/02/20 10/17/20 Rx metoclopramide HCl 5 mg PO AC 09/04/20 10/17/20 History dexamethasone 4 mg PO BID@0900,1530 09/08/20 10/17/20 History diclofenac sodium 75 mg PO BID 10/17/20 10/17/20 History lorazepam 1 mg PO TID PRN 10/17/20 10/17/20 History prednisone 80 mg PO DAILY 10/17/20 10/17/20 History Patient History Medical History Adenocarcinoma of lung w/ extensive lymphadenopathy in the neck, chest, abdomen; brain and bilateral adrenal metastases Brain metastases BRCA gene positive Hx of breast cancer Seizure disorder Due to tumor edematous burden Surgical History H/O bilateral mastectomy H/O craniotomy 05/2020-right frontal craniotomy for brain tumor resection H/O: hysterectomy History of cholecystectomy Family History Aunt Breast cancer Social History Smoking Status: Former smoker Tobacco Type: Cigarettes packs per day: 1; Years Smoked: 23; Second Hand Exposure: No; Hx Alcohol Use: No Hx Substance Use: No Preferred Language: [place] Communication Ability: Effective 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 Beliefs That Will Affect Care: None marital status: Current Living Situation: Spouse How many Children do You have: 2 Feels Safe at Home: Yes Safety Concerns: Feels Safe At This Time Assistive Devices: Glasses Review of Systems Review of Systems: All systems reviewed & are unremarkable except as noted in HPI & below Physical Exam Constitutional: WD/WN, vitals as above Eyes: + anicteric sclerae Respiratory: normal respiratory effort; no respiratory distress Cardiovascular: RRR, no murmur, no edema Gastrointestinal (Abdomen): Inspection/Auscultation: abdomen normal to inspection and normal bowel sounds + moderately tender over upper abd; mild distention, soft Skin: no rashes, warm and dry Psychiatric: A+Ox3, euthymic affect Results & Data ([facility]) Vital Signs (Past 12 Hours) Vital Signs Temp Pulse Pulse Resp BP BP Pulse Ox 10/17/20 07:07 36.7 C 77 16 104/73 92 10/17/20 06:33 111/81 10/17/20 04:07 36.6 C 91 H 16 124/87 98 10/17/20 02:31 79 20 93 10/17/20 02:30 80 18 109/76 94 10/17/20 02:01 74 12 95 10/17/20 02:00 97 H 24 109/75 92 10/17/20 01:31 87 20 96 10/17/20 01:30 77 16 127/75 91 10/17/20 01:01 84 19 98 10/17/20 01:00 95 H 20 131/90 97 10/17/20 00:31 84 96 10/17/20 00:30 87 22 130/93 98 10/17/20 00:28 95 H 16 132/100 96 10/17/20 00:01 77 23 95 10/17/20 00:00 79 22 118/88 93 10/16/20 23:59 81 80 22 134/95 94 10/16/20 23:57 78 18 134/95 95 Laboratory Results 10/17/20 10/17/20 10/17/20 Range/Units 09:25 07:30 07:30 WBC 7.61 (4.8-10.8) K/uL RBC 3.45 L (4.2-5.4) M/uL Hgb 11.5 L (12.0-16.0) g/dL Hct 34.4 L (37-47) % MCV 99.7 (80-100) fL MCH 33.3 (25-34) pg MCHC 33.4 (32-36) g/dL RDW Std Deviation 65.9 H (36.4-46.3) fL RDW Coeff of Suri 17.9 H (11.5-14.5) % Plt Count 152 (130-400) K/uL MPV 9.4 (7.4-10.4) fL Immature Gran % (Auto) 2.5 % Neut % (Auto) 72.2 % Lymph % (Auto) 14.8 % [place] % (Auto) 9.9 % Eos % (Auto) 0.3 % Baso % (Auto) 0.3 % Neut # (Auto) 5.50 (1.4-6.5) K/uL Lymph # (Auto) 1.13 L (1.2-3.4) K/uL [place] # (Auto) 0.75 H (0.11-0.59) K/uL Eos # (Auto) 0.02 (0-0.5) K/uL Baso # (Auto) 0.02 (0-0.2) K/uL Immature Gran # (Auto) 0.19 H (0.00-0.02) K/uL PT 9.7 (9.0-12.0) Seconds INR 1.0 (0.9-1.1) Sodium 139 (136-145) mmol/L Potassium 3.9 D (3.5-5.1) mmol/L Chloride 110 H (98-107) mmol/L Carbon Dioxide 24 (21-32) mmol/L Anion Gap 5.0 (3-11) BUN 6 L (7-18) mg/dl Creatinine 0.42 L (0.6-1.2) mg/dl Est Cr Clr Drug Dosing 190.0 ml/min Est GFR ( Amer) 144.5 ml/min Est GFR (Non-Af Amer) 124.7 ml/min BUN/Creatinine Ratio 14.8 (10-20) Glucose 87 (70-99) mg/dl Calcium 8.7 (8.5-10.1) mg/dl Magnesium (1.8-2.4) mg/dl Total Bilirubin 5.0 H (0.2-1) mg/dl AST 161 H (15-37) U/L ALT 846 H (12-78) U/L Alkaline Phosphatase 451 H (45-117) U/L Troponin I (0-0.045) ng/ml Total Protein 6.5 (6.4-8.2) gm/dl Albumin 2.5 L (3.4-5.0) gm/dl Globulin 4.0 (2.5-4.0) gm/dl Albumin/Globulin Ratio 0.6 L (0.9-2) Amylase (25-115) U/L Lipase (73-393) U/L Urine Color Urine Appearance (Clear) Urine pH (4.5-7.5) Ur Specific [place] (1.000-1.030) Urine Protein (Negative) Urine Glucose (UA) (Negative) Urine Ketones (Negative) Urine Blood (Negative) Urine Nitrite (Negative) Urine Bilirubin (Negative) Urine Urobilinogen (Negative) Ur Leukocyte Esterase (Negative) POC Ur Test (NEG) Urine Opiates Screen (Neg) U Codeine Confrm GC/MS Ur Morphine (GC/MS) Ur Hydrocodone (GC/MS) Ur Norhydrocodone Ur Noroxycodone Urine Oxycodone (GC/MS) U Oxymorphone GC/MS Ur Methadone, Qual (Neg) Ur Hydromorphone (GC/MS) Urine Barbiturates (Neg) Ur Phencyclidine (PCP) (Neg) U Amphetamin/Meth Scrn (Neg) MDMA (Ecstasy) Screen (Neg) U Benzodiazepines Scrn (Neg) Ur Cocaine Metabolite (Neg) U Marijuana (THC) Screen (Neg) Drug Screen Comment Ethyl Alcohol mg/dL (0-3) mg/dl COVID-19 Eval Order SARS-CoV-2 (PCR) (Negative) 10/17/20 10/17/20 10/16/20 Range/Units 01:00 01:00 23:27 WBC (4.8-10.8) K/uL RBC (4.2-5.4) M/uL Hgb (12.0-16.0) g/dL Hct (37-47) % MCV (80-100) fL MCH (25-34) pg MCHC (32-36) g/dL RDW Std Deviation (36.4-46.3) fL RDW Coeff of Suri (11.5-14.5) % Plt Count (130-400) K/uL MPV (7.4-10.4) fL Immature Gran % (Auto) % Neut % (Auto) % Lymph % (Auto) % [place] % (Auto) % Eos % (Auto) % Baso % (Auto) % Neut # (Auto) (1.4-6.5) K/uL Lymph # (Auto) (1.2-3.4) K/uL [place] # (Auto) (0.11-0.59) K/uL Eos # (Auto) (0-0.5) K/uL Baso # (Auto) (0-0.2) K/uL Immature Gran # (Auto) (0.00-0.02) K/uL PT (9.0-12.0) Seconds INR (0.9-1.1) Sodium (136-145) mmol/L Potassium (3.5-5.1) mmol/L Chloride (98-107) mmol/L Carbon Dioxide (21-32) mmol/L Anion Gap (3-11) BUN (7-18) mg/dl Creatinine (0.6-1.2) mg/dl Est Cr Clr Drug Dosing ml/min Est GFR ( Amer) ml/min Est GFR (Non-Af Amer) ml/min BUN/Creatinine Ratio (10-20) Glucose (70-99) mg/dl Calcium (8.5-10.1) mg/dl Magnesium (1.8-2.4) mg/dl Total Bilirubin (0.2-1) mg/dl AST (15-37) U/L ALT (12-78) U/L Alkaline Phosphatase (45-117) U/L Troponin I (0-0.045) ng/ml Total Protein (6.4-8.2) gm/dl Albumin (3.4-5.0) gm/dl Globulin (2.5-4.0) gm/dl Albumin/Globulin Ratio (0.9-2) Amylase (25-115) U/L Lipase (73-393) U/L Urine Color Urine Appearance (Clear) Urine pH (4.5-7.5) Ur Specific [place] (1.000-1.030) Urine Protein (Negative) Urine Glucose (UA) (Negative) Urine Ketones (Negative) Urine Blood (Negative) Urine Nitrite (Negative) Urine Bilirubin (Negative) Urine Urobilinogen (Negative) Ur Leukocyte Esterase (Negative) POC Ur Test (NEG) Urine Opiates Screen (Neg) U Codeine Confrm GC/MS Pending Ur Morphine (GC/MS) Pending Ur Hydrocodone (GC/MS) Pending Ur Norhydrocodone Pending Ur Noroxycodone Pending Urine Oxycodone (GC/MS) Pending U Oxymorphone GC/MS Pending Ur Methadone, Qual (Neg) Ur Hydromorphone (GC/MS) Pending Urine Barbiturates (Neg) Ur Phencyclidine (PCP) (Neg) U Amphetamin/Meth Scrn (Neg) MDMA (Ecstasy) Screen (Neg) U Benzodiazepines Scrn (Neg) Ur Cocaine Metabolite (Neg) U Marijuana (THC) Screen (Neg) Drug Screen Comment Pending Ethyl Alcohol mg/dL (0-3) mg/dl COVID-19 Eval Order Covid19 at [facility] SARS-CoV-2 (PCR) NEGATIVE (Negative) 10/16/20 10/16/20 10/16/20 Range/Units 23:27 23:27 23:20 WBC (4.8-10.8) K/uL RBC (4.2-5.4) M/uL Hgb (12.0-16.0) g/dL Hct (37-47) % MCV (80-100) fL MCH (25-34) pg MCHC (32-36) g/dL RDW Std Deviation (36.4-46.3) fL RDW Coeff of Suri (11.5-14.5) % Plt Count (130-400) K/uL MPV (7.4-10.4) fL Immature Gran % (Auto) % Neut % (Auto) % Lymph % (Auto) % [place] % (Auto) % Eos % (Auto) % Baso % (Auto) % Neut # (Auto) (1.4-6.5) K/uL Lymph # (Auto) (1.2-3.4) K/uL [place] # (Auto) (0.11-0.59) K/uL Eos # (Auto) (0-0.5) K/uL Baso # (Auto) (0-0.2) K/uL Immature Gran # (Auto) (0.00-0.02) K/uL PT (9.0-12.0) Seconds INR (0.9-1.1) Sodium (136-145) mmol/L Potassium (3.5-5.1) mmol/L Chloride (98-107) mmol/L Carbon Dioxide (21-32) mmol/L Anion Gap (3-11) BUN (7-18) mg/dl Creatinine (0.6-1.2) mg/dl Est Cr Clr Drug Dosing ml/min Est GFR ( Amer) ml/min Est GFR (Non-Af Amer) ml/min BUN/Creatinine Ratio (10-20) Glucose (70-99) mg/dl Calcium (8.5-10.1) mg/dl Magnesium (1.8-2.4) mg/dl Total Bilirubin (0.2-1) mg/dl AST (15-37) U/L ALT (12-78) U/L Alkaline Phosphatase (45-117) U/L Troponin I (0-0.045) ng/ml Total Protein (6.4-8.2) gm/dl Albumin (3.4-5.0) gm/dl Globulin (2.5-4.0) gm/dl Albumin/Globulin Ratio (0.9-2) Amylase (25-115) U/L Lipase (73-393) U/L Urine Color Dark Yellow Urine Appearance Clear (Clear) Urine pH 6.5 (4.5-7.5) Ur Specific [place] 1.011 (1.000-1.030) Urine Protein Negative (Negative) Urine Glucose (UA) 1+ H (Negative) Urine Ketones Negative (Negative) Urine Blood Negative (Negative) Urine Nitrite Negative (Negative) Urine Bilirubin 2+ H (Negative) Urine Urobilinogen Negative (Negative) Ur Leukocyte Esterase Negative (Negative) POC Ur Test NEG (NEG) Urine Opiates Screen Pos H (Neg) U Codeine Confrm GC/MS Ur Morphine (GC/MS) Ur Hydrocodone (GC/MS) Ur Norhydrocodone Ur Noroxycodone Urine Oxycodone (GC/MS) U Oxymorphone GC/MS Ur Methadone, Qual Neg (Neg) Ur Hydromorphone (GC/MS) Urine Barbiturates Neg (Neg) Ur Phencyclidine (PCP) Neg (Neg) U Amphetamin/Meth Scrn Neg (Neg) MDMA (Ecstasy) Screen Neg (Neg) U Benzodiazepines Scrn Neg (Neg) Ur Cocaine Metabolite Neg (Neg) U Marijuana (THC) Screen Neg (Neg) Drug Screen Comment Ethyl Alcohol mg/dL (0-3) mg/dl COVID-19 Eval Order SARS-CoV-2 (PCR) (Negative) 10/16/20 10/16/20 10/16/20 Range/Units 22:35 22:35 22:35 WBC (4.8-10.8) K/uL RBC (4.2-5.4) M/uL Hgb (12.0-16.0) g/dL Hct (37-47) % MCV (80-100) fL MCH (25-34) pg MCHC (32-36) g/dL RDW Std Deviation (36.4-46.3) fL RDW Coeff of Suri (11.5-14.5) % Plt Count (130-400) K/uL MPV (7.4-10.4) fL Immature Gran % (Auto) % Neut % (Auto) % Lymph % (Auto) % [place] % (Auto) % Eos % (Auto) % Baso % (Auto) % Neut # (Auto) (1.4-6.5) K/uL Lymph # (Auto) (1.2-3.4) K/uL [place] # (Auto) (0.11-0.59) K/uL Eos # (Auto) (0-0.5) K/uL Baso # (Auto) (0-0.2) K/uL Immature Gran # (Auto) (0.00-0.02) K/uL PT (9.0-12.0) Seconds INR (0.9-1.1) Sodium 137 (136-145) mmol/L Potassium 3.2 L (3.5-5.1) mmol/L Chloride 105 (98-107) mmol/L Carbon Dioxide 27 (21-32) mmol/L Anion Gap 6.0 (3-11) BUN 8 (7-18) mg/dl Creatinine 0.44 L (0.6-1.2) mg/dl Est Cr Clr Drug Dosing 183.2 ml/min Est GFR ( Amer) 142.3 ml/min Est GFR (Non-Af Amer) 122.8 ml/min BUN/Creatinine Ratio 17.9 (10-20) Glucose 158 H (70-99) mg/dl Calcium 9.0 (8.5-10.1) mg/dl Magnesium 1.9 (1.8-2.4) mg/dl Total Bilirubin 4.7 H (0.2-1) mg/dl AST 189 H (15-37) U/L ALT 969 H (12-78) U/L Alkaline Phosphatase 452 H (45-117) U/L Troponin I < 0.015 (0-0.045) ng/ml Total Protein 6.8 (6.4-8.2) gm/dl Albumin 2.6 L (3.4-5.0) gm/dl Globulin 4.2 H (2.5-4.0) gm/dl Albumin/Globulin Ratio 0.6 L (0.9-2) Amylase 128 H (25-115) U/L Lipase 1054 H (73-393) U/L Urine Color Urine Appearance (Clear) Urine pH (4.5-7.5) Ur Specific [place] (1.000-1.030) Urine Protein (Negative) Urine Glucose (UA) (Negative) Urine Ketones (Negative) Urine Blood (Negative) Urine Nitrite (Negative) Urine Bilirubin (Negative) Urine Urobilinogen (Negative) Ur Leukocyte Esterase (Negative) POC Ur Test (NEG) Urine Opiates Screen (Neg) U Codeine Confrm GC/MS Ur Morphine (GC/MS) Ur Hydrocodone (GC/MS) Ur Norhydrocodone Ur Noroxycodone Urine Oxycodone (GC/MS) U Oxymorphone GC/MS Ur Methadone, Qual (Neg) Ur Hydromorphone (GC/MS) Urine Barbiturates (Neg) Ur Phencyclidine (PCP) (Neg) U Amphetamin/Meth Scrn (Neg) MDMA (Ecstasy) Screen (Neg) U Benzodiazepines Scrn (Neg) Ur Cocaine Metabolite (Neg) U Marijuana (THC) Screen (Neg) Drug Screen Comment Ethyl Alcohol mg/dL < 3.0 (0-3) mg/dl COVID-19 Eval Order SARS-CoV-2 (PCR) (Negative) 10/16/20 Range/Units 22:35 WBC 9.80 (4.8-10.8) K/uL RBC 3.26 L (4.2-5.4) M/uL Hgb 11.1 L (12.0-16.0) g/dL Hct 31.7 L (37-47) % MCV 97.2 (80-100) fL MCH 34.0 (25-34) pg MCHC 35.0 (32-36) g/dL RDW Std Deviation 62.8 H (36.4-46.3) fL RDW Coeff of Suri 17.5 H (11.5-14.5) % Plt Count 156 (130-400) K/uL MPV 9.6 (7.4-10.4) fL Immature Gran % (Auto) 1.7 % Neut % (Auto) 78.3 % Lymph % (Auto) 10.8 % [place] % (Auto) 9.0 % Eos % (Auto) 0.1 % Baso % (Auto) 0.1 % Neut # (Auto) 7.67 H (1.4-6.5) K/uL Lymph # (Auto) 1.06 L (1.2-3.4) K/uL [place] # (Auto) 0.88 H (0.11-0.59) K/uL Eos # (Auto) 0.01 (0-0.5) K/uL Baso # (Auto) 0.01 (0-0.2) K/uL Immature Gran # (Auto) 0.17 H (0.00-0.02) K/uL PT (9.0-12.0) Seconds INR (0.9-1.1) Sodium (136-145) mmol/L Potassium (3.5-5.1) mmol/L Chloride (98-107) mmol/L Carbon Dioxide (21-32) mmol/L Anion Gap (3-11) BUN (7-18) mg/dl Creatinine (0.6-1.2) mg/dl Est Cr Clr Drug Dosing ml/min Est GFR ( Amer) ml/min Est GFR (Non-Af Amer) ml/min BUN/Creatinine Ratio (10-20) Glucose (70-99) mg/dl Calcium (8.5-10.1) mg/dl Magnesium (1.8-2.4) mg/dl Total Bilirubin (0.2-1) mg/dl AST (15-37) U/L ALT (12-78) U/L Alkaline Phosphatase (45-117) U/L Troponin I (0-0.045) ng/ml Total Protein (6.4-8.2) gm/dl Albumin (3.4-5.0) gm/dl Globulin (2.5-4.0) gm/dl Albumin/Globulin Ratio (0.9-2) Amylase (25-115) U/L Lipase (73-393) U/L Urine Color Urine Appearance (Clear) Urine pH (4.5-7.5) Ur Specific [place] (1.000-1.030) Urine Protein (Negative) Urine Glucose (UA) (Negative) Urine Ketones (Negative) Urine Blood (Negative) Urine Nitrite (Negative) Urine Bilirubin (Negative) Urine Urobilinogen (Negative) Ur Leukocyte Esterase (Negative) POC Ur Test (NEG) Urine Opiates Screen (Neg) U Codeine Confrm GC/MS Ur Morphine (GC/MS) Ur Hydrocodone (GC/MS) Ur Norhydrocodone Ur Noroxycodone Urine Oxycodone (GC/MS) U Oxymorphone GC/MS Ur Methadone, Qual (Neg) Ur Hydromorphone (GC/MS) Urine Barbiturates (Neg) Ur Phencyclidine (PCP) (Neg) U Amphetamin/Meth Scrn (Neg) MDMA (Ecstasy) Screen (Neg) U Benzodiazepines Scrn (Neg) Ur Cocaine Metabolite (Neg) U Marijuana (THC) Screen (Neg) Drug Screen Comment Ethyl Alcohol mg/dL (0-3) mg/dl COVID-19 Eval Order SARS-CoV-2 (PCR) (Negative)
[2020-10-17] MEDS: MoRPHine SULFATE CR 15 MG TABCR PO SCH ×2 (09:09→22:11)
[2020-10-17] MEDS: FOLIC ACID 1 MG TAB PO SCH (09:09)
[2020-10-17 09:57] LABS: Prothrombin Time 9.7 Seconds (9.0-12.0)
--- NOTE | 2020-10-17 10:19 | CT Scan Report ---
CT SCAN OF THE ABDOMEN AND PELVIS WITHOUT IV CONTRAST CLINICAL HISTORY: Upper abdominal pain. History of lung cancer. COMPARISON STUDY: Abdominal CT dated 09/10/2020. TECHNIQUE: CT scan of the abdomen and pelvis is performed from the lung bases to the proximal femora. Images are reviewed in the axial, sagittal, and coronal planes. IV contrast was not administered for this examination. Note that the examination was performed in suboptimal fashion without oral and IV contrast. A dose lowering technique was utilized adhering to the principles of ALARA. CT DOSE: 705.17 mGy.cm FINDINGS: Lung bases: The heart is normal in size and without pericardial effusion. There is an 8 mm pleural-ba sed nodule at the left lung base image #60. A 3 mm left lower lobe pulmonary nodule is seen on image #35. These are new from 09/10/2020. The lung bases are otherwise clear noting bibasilar scarring/atele ctasis. There is a small hiatal hernia. Bilateral breast implants are partially visualized. Liver: The unenhanced liver is normal in size, contour, and attenuation. There is mild intrahepatic b iliary ductal dilatation. Gallbladder: Surgically absent noting clips in the gallbladder fossa. A filling defect is suggested w ithin the common bile duct on image #138. Spleen: The spleen is mildly enlarged measuring 13.6 cm in length. Pancreas: The pancreas is edematous. There is peripancreatic stranding and fluid, greatest around the body and tail. The duct is normal in caliber. No organized peripancreatic fluid collection is identi fied. Adrenal glands: Bilateral adrenal metastases are similar in appearance. The largest lesion is seen on the left and measures up to 2.7 cm. Kidneys: The unenhanced kidneys are normal in size and without hydronephrosis. There are no renal prema culi identified. There is no evidence of contour deforming renal mass lesion. Abdominal vasculature: The abdominal aorta is normal in course and caliber. Bowel: There is moderate colonic fecal retention. No bowel obstruction is identified. There is a smal l duodenal diverticulum. The appendix is well-visualized and normal. Peritoneum: There is no intraperitoneal free air or abdominal ascites. Lymphadenopathy: Numerous mildly enlarged mesenteric and retroperitoneal lymph nodes measure up to 1 cm in short axis. These are unchanged to minimally increased in size as compared to 09/10/2020. Pelvic viscera: A 1 cm bladder nodule is again suggested posteriorly on the right on axial image #43 6. The bladder is otherwise normal as visualized. The uterus is surgically absent. No adnexal lesion is seen. Skeletal structures: No lytic or blastic lesions are seen. IMPRESSION: 1. Suboptimal examination without oral and IV contrast. 2. Findings are consistent with acute pancreatitis. Correlate with serum amylase/lipase levels. 3. Intra and extrahepatic biliary ductal dilatation is new from previous. A filling defect is suggest ed within the common bile duct and is concerning for choledocholithiasis. 4. There are 2 pulmonary and pleural-based nodules at the left lung base which measure up to 8 mm. Th lefty are pathologically indeterminant but new from 09/10/2020. 5. Bilateral adrenal metastases have not significantly significant changed from 09/10/2020. 6. Abdominal and retroperitoneal lymphadenopathy is unchanged to minimally increased as compared to . 7. A bladder nodule is again suggested. This was better assessed on the prior contrast-enhanced exami [email or web address]. Bladder neoplasm remains the diagnosis of exclusion. 8. Additional findings as above. ACT 112: Negative or not required by law. Electronically signed by: Georges Aguirre M.D. 10/17/2020 10:18 AM
--- NOTE | 2020-10-17 11:11 | Magnetic Resonance Report ---
MR MRCP CLINICAL HISTORY: abd pain abnormal CT scan. Possible choledocholithiasis. COMPARISON STUDY: CT scan dated 10/16/2020 FINDINGS: A breath-hold MRCP was performed. MIP images were acquired. The gallbladder is surgically absent. There is peripancreatic edema, suspicious for interstitial pancreatitis. There is a distal pancreatic ductal stricture with upstream ductal dilatation measuring up to 5 mm. There is a high-grade stricture of the distal common hepatic duct with secondary intrahepatic biliary ductal dilatation. The common hepatic duct proximal to the stricture measures 12 mm. The double duct sign is suspicious for a centrally obstructing mass. ERCP or endoscopic ultrasound mi ght be considered in follow-up. There are bilateral adrenal gland nodules. There are borderline enlarged mesenteric and retroperitoneal lymph nodes IMPRESSION: 1. High-grade strictures of the distal common hepatic duct and pancreatic duct. The double duct sign is suspicious for a centrally obstructing lesion. ERCP or endoscopic ultrasound might be considered i n follow-up. ACT 112: Negative or not required by law. Electronically signed by: Axel Hook M.D. 10/17/2020 11:10 AM
[2020-10-17] MEDS ORDERED: PROPOFOL IV EMULSION 10 MG/ML 20 ML VIAL IV ONE (13:16)
[2020-10-17] MEDS ORDERED: LIDOCAINE 2% 2 ML VIAL/AMP(20MG/ML) INFIL ONE (13:16)
[2020-10-17] MEDS ORDERED: MIDAZOLAM HCL 1 MG/ML 2ML VIAL ONE (13:18)
[2020-10-17] MEDS ORDERED: fentaNYL citrate 100 MCG/2 ML VIAL ONE ×3 (13:19→14:58)
[2020-10-17] MEDS ORDERED: ONDANSETRON INJ 2 MG/ML 2 ML VIAL ONE (13:23)
[2020-10-17] MEDS ORDERED: DEXAMETHASONE SOD INJ 4 MG/ML VIAL ONE (13:23)
[2020-10-17] MEDS ORDERED: INDOMETHACIN 50 MG SUPP PR ONE ×2 (13:33→13:41)
--- NOTE | 2020-10-17 13:41 | Electrocardiogram Report ---
Test Reason : Blood Pressure : / mmHG Vent. Rate : 081 BPM Atrial Rate : 081 BPM P-R Int : 110 ms QRS Dur : 074 ms QT Int : 360 ms P-R-T Axes : 036 080 070 degrees QTc Int : 418 ms Sinus rhythm with short DE Otherwise normal ECG When compared with ECG of 08-SEP-2020 08:03, No significant change was found Confirmed by Alexy Solano ([id number]) on 10/17/2020 1:40:58 PM Referred By: REFERRED SELF Confirmed By:Alexy Solano
--- NOTE | 2020-10-17 13:43 | History & Physical Bridge Note ---
Date of Service October 17, 2020 History & Physical Bridge Note I have examined the patient, reviewed the History & Physical and in the interval since the performance of the History & Physical I have noted the following changes of clinical significance: no changes noted. the patient presented with abodminal pain and newly elevated liver tests. Imaging suggests either a CBD stone or perhaps a biliary stricture. Given the presentation we will proceed with EGD / EUS and possible ERCP this afternoon. We have discussed the risks to include bleeding, infection, perforation, pain, infection,failed bilary cannulation and insufficient cellularity (in event of FNA). Plan EGD EUS ERCP with possible biliary stent placement
[2020-10-17] MEDS ORDERED: ePHEDrine sulfate 50 MG/ML AMP IV PRN (13:48)
[2020-10-17] MEDS ORDERED: ATROPINE SULFATE 0.1 MG/ML 10ML SYR IV PRN (13:48)
[2020-10-17] MEDS ORDERED: ONDANSETRON INJ 2 MG/ML 2 ML VIAL IV PRN ×2 (13:48→23:47)
--- NOTE | 2020-10-17 13:48 | Anesthesiology Consultation ---
Date of Service October 17, 2020 Assessment & Plan (1) Encounter for pre-operative examination: Chart Review Chart Review: Acceptable Risk for Surgery and Patient NOT seen in Pre Admission Testing Consults Requested none History Surgery Operation Date: 10/17/20 12:20 Proposed Procedures p Endoscopic Ultrasonography Upper +/- ERCP - Josee Ding DO Height/Weight Height: 5 ft 7 in Weight: 83.6 kg Allergies Allergy/AdvReac Type Severity Reaction Status Date / Time Penicillins Allergy Intermediate Swelling Verified 10/17/20 13:38 Medications Home Medications Medication Instructions Recorded Confirmed Last Taken folic acid 1 mg PO QAM 07/09/20 10/17/20 09/07/20 ondansetron 8 mg PO Q8H PRN 07/09/20 10/17/20 08/16/20 prochlorperazine maleate 10 mg PO Q6H PRN 07/09/20 10/17/20 08/15/20 morphine 15 mg PO Q12H #60 tab 07/16/20 10/17/20 09/08/20 polyethylene glycol 3350 [Miralax] 17 g PO QID PRN 07/23/20 10/17/20 Unknown sennosides-docusate sodium 1 tab PO BID PRN 07/23/20 10/17/20 Unknown [Senokot-S] docusate sodium 100 mg PO BID PRN 07/29/20 10/17/20 Unknown oxycodone 5 mg PO Q6H PRN 07/29/20 10/17/20 09/07/20 levetiracetam 1,500 mg PO BID 08/16/20 10/17/20 09/08/20 midodrine 10 mg PO TID 08/27/20 10/17/20 09/07/20 fludrocortisone 0.1 mg PO QAM #30 tab 09/02/20 10/17/20 09/07/20 magnesium chloride [Mag 64] 64 mg PO BID #60 tab 09/02/20 10/17/20 09/07/20 metoclopramide HCl 5 mg PO AC 09/04/20 10/17/20 09/07/20 dexamethasone 4 mg PO BID@0900,1530 09/08/20 10/17/20 09/07/20 15:30 diclofenac sodium 75 mg PO BID 10/17/20 10/17/20 Unknown lorazepam 1 mg PO TID PRN 10/17/20 10/17/20 Unknown prednisone 80 mg PO DAILY 10/17/20 10/17/20 Unknown Active Medications Generic Name Dose Route Start Last Admin Trade Name Freq PRN Reason Stop Dose Admin Fludrocortisone Acetate 0.1 mg 10/17/20 09:00 10/17/20 09:08 Fludrocortisone Acetate 0.1 Mg Tab PO 11/16/20 08:59 0.1 mg QAM KAMILA Administration Folic Acid 1 mg 10/17/20 09:00 10/17/20 09:09 Folic Acid 1 Mg Tab PO 11/16/20 08:59 1 mg QAM KAMILA Administration Potassium Chloride 20 meq/ 1,010 mls @ 200 mls/hr 10/17/20 06:00 10/17/20 11:45 Lactated Ringer's IV 11/16/20 05:59 200 mls/hr .Q5H3M KAMILA Administration Levetiracetam 1,500 mg 10/17/20 09:00 10/17/20 09:08 Levetiracetam 500 Mg Tab PO 11/16/20 08:59 1,000 mg BID KAMILA Administration Lorazepam 1 mg 10/17/20 04:17 10/17/20 05:09 Lorazepam 1 Mg Tab PO 11/16/20 04:16 1 mg TID PRN Administration Anxiety Midodrine 10 mg 10/17/20 07:00 10/17/20 12:24 Midodrine Hcl 10 Mg Tab PO 11/16/20 06:59 Not Given TID@0700,1300,1800 KAMILA Morphine Sulfate 4 mg 10/17/20 01:55 10/17/20 11:45 Morphine Sulfate 4 Mg/Ml 1 Ml Carp\Vial IV 10/31/20 01:54 4 mg Q4H PRN Administration Pain Morphine Sulfate 15 mg 10/17/20 09:00 10/17/20 09:09 Morphine Sulfate Cr 15 Mg Tabcr PO 10/31/20 08:59 15 mg Q12 KAMILA Administration Oxycodone HCl 5 - 10 mg 10/17/20 01:55 10/17/20 06:34 Oxycodone Hcl Ir 5 Mg Tab (Immediate Release) PO 10/31/20 01:54 10 mg QID PRN Administration Pain Prednisone 80 mg 10/17/20 09:00 10/17/20 09:08 Prednisone 20 Mg Tab PO 10/26/20 23:59 80 mg DAILY KAMILA Administration Senna/Docusate Sodium 1 tab 10/17/20 03:35 10/17/20 09:08 Docusate Sodium/Senna 50/8.6mg Tab PO 11/16/20 03:34 1 tab BID KAMILA Administration Past Medical History Medical History Adenocarcinoma of lung w/ extensive lymphadenopathy in the neck, chest, abdomen; brain and bilateral adrenal metastases Brain metastases BRCA gene positive Hx of breast cancer Seizure disorder Due to tumor edematous burden Past Family History Family History Aunt Breast cancer Past Surgical History Surgical History H/O bilateral mastectomy H/O craniotomy 05/2020-right frontal craniotomy for brain tumor resection H/O: hysterectomy History of cholecystectomy Social History Smoking Status: Former smoker tobacco type: cigarettes Hx Alcohol Use: No Hx Substance Use: No substance use type: does not use Physical Exam Vital Signs Last Vital Signs Temp 36.8 C 10/17/20 11:12 Pulse 84 10/17/20 11:12 Resp 16 10/17/20 11:12 BP 117/76 10/17/20 11:12 Pulse Ox 95 10/17/20 11:12 Testing Laboratory Results 10/17/20 07:30 10/17/20 07:30 PT 9.7 Seconds (9.0-12.0) 10/17/20 09:25 INR 1.0 (0.9-1.1) 10/17/20 09:25 Urine Color Dark Yellow 10/16/20 23:27 Urine Appearance Clear (Clear) 10/16/20 23: Urine pH 6.5 (4.5-7.5) 10/16/20 23: Ur Specific [place] 1.011 (1.000-1.030) 10/16/20 23:27 Urine Protein Negative (Negative) 10/16/20 23: Urine Glucose (UA) 1+ (Negative) H 10/16/20 23:27 Urine Ketones Negative (Negative) 10/16/20 23:27 Urine Nitrite Negative (Negative) 10/16/20 23:27 Ur Leukocyte Esterase Negative (Negative) 10/16/20 23:27 10/16/20 23:20 POC Ur Test NEG
[2020-10-17] MEDS ORDERED: SUCCINYLCHOLINE 100MG/5ML SYR IV ONE (14:25)
[2020-10-17] MEDS ORDERED: ROCURONIUM BROMIDE 10 MG/ML 5 ML VIAL IV ONE (14:25)
--- NOTE | 2020-10-17 14:29 | GI REPORT ---
Patient Name: Josi Copeland Procedure Date: 10/17/2020 1:46 PM Date of : 1975 Admit Type: Inpatient Age: 45 Gender: Female Attending MD: Josee Ding DO Procedure: Upper GI endoscopy Providers: Josee Ding DO Referring MD: Referred Self, Lilly Barillas Md, Jasiel Fritz Indications: Epigastric abdominal pain, Abnormal CT of the GI tract, Abnormal MRI of the GI tract Medicines: Monitored Anesthesia Care Complications: No immediate complications. Estimated blood loss: Minimal. Estimated Blood Loss: Estimated blood loss was minimal. Procedure: Pre-Anesthesia Assessment: - Prior to the procedure, a History and Physical was performed, and patient medications, allergies and sensitivities were reviewed. The patient's tolerance of previous anesthesia was reviewed. - The risks and benefits of the procedure and the sedation options and risks were discussed with the patient. All questions were answered and informed consent was obtained. - Patient identification and proposed procedure were verified prior to the procedure by the physician, the nurse and the mail order sorter. The procedure was verified in the procedure room. - Pre-procedure physical examination revealed no contraindications to sedation. - ASA Grade Assessment: III - A patient with severe systemic disease. - After reviewing the risks and benefits, the patient was deemed in satisfactory condition to undergo the procedure. - The anesthesia plan was to use general anesthesia. - Immediately prior to administration of medications, the patient was re-assessed for adequacy to receive sedatives. - The heart rate, respiratory rate, oxygen saturations, blood pressure, adequacy of pulmonary ventilation, and response to care were monitored throughout the procedure. - The physical status of the patient was re-assessed after the procedure. After obtaining informed consent, the endoscope was passed under direct vision. Throughout the procedure, the patient's blood pressure, pulse, and oxygen saturations were monitored continuously. The Endoscope was introduced through the mouth, and advanced to the third part of duodenum. The upper GI endoscopy was accomplished without difficulty. The patient tolerated the procedure well. Findings: The examined esophagus was normal. The Z-line was irregular and was found 36 cm from the incisors. Biopsies were taken with a cold forceps for histology. The pathology specimen was placed into Bottle A. Estimated blood loss was minimal. The entire examined stomach was normal. The examined duodenum was normal. Impression: - Normal esophagus. - Z-line irregular, 36 cm from the incisors. Biopsied. - Normal stomach. - Normal examined duodenum. Recommendation: - Perform an upper endoscopic ultrasound (UEUS) today. - Await pathology results. Josee Ding D.O. Josee Ding, 10/17/2020 2:29:02 PM This report has been signed electronically. Note Initiated On: 10/17/2020 1:46 PM Number of Addenda: 0 I attest to the content of the Intraoperative Record and orders documented therein, exceptions below {[id number]}
--- NOTE | 2020-10-17 15:40 | Post Operative Brief Note ---
Immediate Post Op Note v1 Date of Surgery October 17, 2020 Pre & Post Diagnosis Operation Date: 10/17/20 12:20 Pre-Op Diagnosis: Pancreatitis Post-Op Diagnosis: Pancreatitis I identified the patient and participated in the time-out.: Yes Procedure Operation Date: 10/17/20 12:20 Actual Procedures p Endoscopic Ultrasonography Upper, Esophagogastroduodenoscopy, Endoscopic Retrograde Cholangiopancreatography(Not Applicable) - Josee Ding DO Surgeon Josee Dnig DO Tour Production Supervisor None Estimated Blood Loss 0 Findings Consistent with Post-Op Diagnosis
--- NOTE | 2020-10-17 15:43 | Communication Note ---
Date of Service: October 17, 2020 The patient underwent ERCP and endoscopic ultrasound today. Unfortunately it does appear that she has a pancreatic head mass, fine-needle aspiration was per formed and a covered metal stent was placed into the biliary tree. Recommendations Patient may have a clear liquid diet this evening Continue IV hydration overnight Empiric ciprofloxacin twice daily for a total of 7 days Await cytology results Avoid nonsteroidals and anticoagulants for at least 5 days
--- NOTE | 2020-10-17 15:52 | Fluoroscopy Report ---
[place] ERCP biliary ductal CLINICAL HISTORY: ERCP COMPARISON STUDY: MRCP performed the same day FLUOROSCOPY TIME: 1 minute 3 seconds. NUMBER OF FLUOROSCOPIC IMAGES: 10 FINDINGS: Fluoroscopic spot images from an ERCP was performed. The common bile duct was catheterized in a retrograde fashion. Contrast was instilled. There is a common bile duct/distal common hepatic du ct stricture. Final images demonstrate placement of a metallic biliary stent. IMPRESSION: Common bile duct/distal common hepatic duct stricture. An biliary metallic stent was alma fareed. ACT 112: Negative or not required by law. Electronically signed by: Axel Hook M.D. 10/17/2020 3:50 PM
[2020-10-17] MEDS: fentaNYL citrate 100 MCG/2 ML VIAL IV PRN ×2 (15:55→16:02)
--- NOTE | 2020-10-17 15:59 | GI REPORT ---
Patient Name: Josi Copeland Procedure Date: 10/17/2020 1:45 PM Date of : 1975 Admit Type: Inpatient Age: 45 Gender: Female Attending MD: Josee Ding DO Procedure: Upper EUS Providers: Josee Ding DO Referring MD: Jasiel Fritz, Lilly Barillas Md Indications: Common bile duct dilation (acquired) seen on MRCP, Elevated liver enzymes Medicines: General Anesthesia Complications: No immediate complications. Estimated blood loss: Minimal. Estimated Blood Loss: Estimated blood loss was minimal. Estimated blood loss: none. Procedure: Pre-Anesthesia Assessment: - Prior to the procedure, a History and Physical was performed, and patient medications, allergies and sensitivities were reviewed. The patient's tolerance of previous anesthesia was reviewed. - The risks and benefits of the procedure and the sedation options and risks were discussed with the patient. All questions were answered and informed consent was obtained. - Patient identification and proposed procedure were verified prior to the procedure by the physician, the nurse and the diamond grader. The procedure was verified in the procedure room. - Pre-procedure physical examination revealed no contraindications to sedation. - ASA Grade Assessment: III - A patient with severe systemic disease. - After reviewing the risks and benefits, the patient was deemed in satisfactory condition to undergo the procedure. - The anesthesia plan was to use general anesthesia. - Immediately prior to administration of medications, the patient was re-assessed for adequacy to receive sedatives. - The heart rate, respiratory rate, oxygen saturations, blood pressure, adequacy of pulmonary ventilation, and response to care were monitored throughout the procedure. - The physical status of the patient was re-assessed after the procedure. After obtaining informed consent, the endoscope was passed under direct vision. Throughout the procedure, the patient's blood pressure, pulse, and oxygen saturations were monitored continuously. The Endosonoscope was introduced through the mouth, and advanced to the second part of duodenum. The upper EUS was accomplished without difficulty. The patient tolerated the procedure well. Findings: ENDOSONOGRAPHIC FINDING: : There was no sign of significant endosonographic abnormality in the ampulla. No masses were identified. Evidence of a previous cholecystectomy was identified endosonographically. There was dilation in the common bile duct which measured up to 12 mm. Intrahepatid ductal dilation One enlarged lymph node was visualized in the gastrohepatic ligament (level 18). It measured 8 mm by 7 mm in maximal cross-sectional diameter. The node was oval, hypoechoic and had well defined margins. An irregular mass was identified in the pancreatic head. The mass was hypoechoic. The mass measured 30 mm by 23 mm in maximal cross-sectional diameter. The endosonographic borders were poorly-defined. There was sonographic evidence suggesting invasion into the portal vein (manifested by abutment). An intact interface was seen between the mass and the celiac trunk suggesting a lack of invasion. The remainder of the pancreas was examined. The endosonographic appearance of parenchyma and the upstream pancreatic duct indicated no duct dilation and parenchymal atrophy. Fine needle aspiration for cytology was performed. Color Doppler imaging was utilized prior to needle puncture to confirm a lack of significant vascular structures within the needle path. Five passes were made with the 22 gauge needle and with the 25 gauge needle using a transduodenal approach. A stylet was used. A lead systems engineer was present and performed a preliminary cytologic examination. Final cytology results are pending. A few enlarged lymph nodes were visualized in the subcarinal mediastinum (level 7) with the ultrasound probe located 25 cm from the incisors. The largest measured 13 mm by 10 mm in maximal cross-sectional diameter. The nodes were irregular, hypoechoic and had well defined margins. Impression: - There was no sign of significant pathology in the ampulla. - Evidence of a cholecystectomy. - There was dilation in the common bile duct which measured up to 12 mm. - One enlarged lymph node was visualized in the gastrohepatic ligament (level 18). - A 33 mm mass was identified in the pancreatic head. This was staged T3 N1 Mx by endosonographic criteria. The staging applies if malignancy is confirmed. Fine needle aspiration performed. Recommendation: - Perform an ERCP today. - Await cytology results. Josee Ding D.O. Josee Ding DO 10/17/2020 3:58:37 PM This report has been signed electronically. Note Initiated On: 10/17/2020 1:45 PM Number of Addenda: 0 I attest to the content of the Intraoperative Record and orders documented therein, exceptions below {[id number]}
--- NOTE | 2020-10-17 16:05 | GI REPORT ---
Patient Name: Josi Copeland Procedure Date: 10/17/2020 1:45 PM Date of : 1975 Admit Type: Inpatient Age: 45 Gender: Female Attending MD: Josee Ding DO Procedure: ERCP Providers: Josee Ding DO Referring MD: Jasiel Fritz, Lilly Barillas Md Indications: Abdominal pain of suspected biliary origin, Abnormal abdominal MRI, Elevated liver enzymes Medicines: General Anesthesia Complications: No immediate complications. Estimated blood loss: Minimal. Estimated Blood Loss: Estimated blood loss was minimal. Procedure: Pre-Anesthesia Assessment: - Prior to the procedure, a History and Physical was performed, and patient medications, allergies and sensitivities were reviewed. The patient's tolerance of previous anesthesia was reviewed. - The risks and benefits of the procedure and the sedation options and risks were discussed with the patient. All questions were answered and informed consent was obtained. - Patient identification and proposed procedure were verified prior to the procedure by the physician, the nurse and the fundraising consultant. The procedure was verified in the procedure room. - Pre-procedure physical examination revealed no contraindications to sedation. - ASA Grade Assessment: III - A patient with severe systemic disease. - After reviewing the risks and benefits, the patient was deemed in satisfactory condition to undergo the procedure. - The anesthesia plan was to use general anesthesia. - Immediately prior to administration of medications, the patient was re-assessed for adequacy to receive sedatives. - The heart rate, respiratory rate, oxygen saturations, blood pressure, adequacy of pulmonary ventilation, and response to care were monitored throughout the procedure. - The physical status of the patient was re-assessed after the procedure. After obtaining informed consent, the scope was passed under direct vision. Throughout the procedure, the patient's blood pressure, pulse, and oxygen saturations were monitored continuously. The scope was introduced through the mouth, and advanced to the duodenum and used to inject contrast into the bile duct. The ERCP was accomplished without difficulty. The patient tolerated the procedure well. Findings: A architecture professor film of the abdomen was obtained. Surgical clips, consistent with a previous cholecystectomy, were seen in the area of the right upper quadrant of the abdomen. The esophagus was successfully intubated under direct vision without detailed examination of the pharynx, larynx, and associated structures, and upper GI tract. The upper GI tract was grossly normal. The major papilla was on the rim of a diverticulum. The bile duct was deeply cannulated with the short-nosed traction sphincterotome and 0.035 in Acrobat 2 guidewire. Contrast was injected. I personally interpreted the bile duct images. Contrast extended to the entire biliary tree. A cholecystectomy had been performed. The middle third of the main bile duct, upper third of the main bile duct and left and right hepatic ducts and all intrahepatic branches were diffusely dilated, secondary to a stricture. The length was 35 to 40 mm. Biliary sphincterotomy was made with a [employer] sphincterotome using ERBE electrocautery. There was no post-sphincterotomy bleeding. Cells for cytology were obtained by brushing in the lower third of the main bile duct. One 10 Fr by 8 cm covered metal stent ( [place] Viabile) was placed 8 cm into the common bile duct. The stent was in good position but appeared slow to expand due to the malignant appearing stricture. The lower third of the main bile duct and stent was successfully dilated with an 8 mm balloon dilator. Impression: - The major papilla was on the rim of a diverticulum. - Malignant appearing biliary stricture with upstream biliary diliaton. - A biliary sphincterotomy was performed. - Cells for cytology obtained in the lower third of the main duct. - One covered metal stent was placed into the common bile duct. Recommendation: - Avoid aspirin and nonsteroidal anti-inflammatory medicines for 1 week. - Use broad spectrum antibiotics for 1 week. - Await cytology results. Josee Ding D.O. Josee Ding DO 10/17/2020 4:05:36 PM This report has been signed electronically. Note Initiated On: 10/17/2020 1:45 PM Number of Addenda: 0 I attest to the content of the Intraoperative Record and orders documented therein, exceptions below {[id number]}
[2020-10-17] MEDS ORDERED: HYDROmorphone INJ 0.5 MG/0.5 ML SYR ONE (16:39)
[2020-10-17] MEDS: HYDROmorphone INJ 0.5 MG/0.5 ML SYR IV PRN ×4 (16:40→16:57)
--- NOTE | 2020-10-17 17:15 | Anesthesiology Progress Note ---
Date of Service October 17, 2020 Anesthesia Post Procedure Vital Signs Vital Signs: Temp Pulse Pulse Pulse Resp BP BP 10/17/20 17:10 36.4 C L 88 15 137/94 10/17/20 17:00 88 14 132/95 10/17/20 16:50 90 14 140/103 H 10/17/20 16:40 94 H 17 143/99 H 10/17/20 16:30 36.4 C L 99 H 17 137/99 10/17/20 16:19 36.4 C L 98 H 17 137/99 10/17/20 16:05 94 H 18 137/104 H 10/17/20 15:55 97 H 18 138/105 H 10/17/20 15:45 99 H 21 150/94 H 10/17/20 15:37 36.8 C 120 H 20 139/98 10/17/20 13:39 36.8 C 82 18 133/90 10/17/20 11:12 36.8 C 84 16 117/76 10/17/20 09:06 93 H 109/77 10/17/20 07:07 36.7 C 77 16 104/73 10/17/20 06:33 111/81 10/17/20 04:07 36.6 C 91 H 16 124/87 10/17/20 02:31 79 20 10/17/20 02:30 80 18 109/76 10/17/20 02:01 74 12 10/17/20 02:00 97 H 24 109/75 10/17/20 01:31 87 20 10/17/20 01:30 77 16 127/75 10/17/20 01:01 84 19 10/17/20 01:00 95 H 20 131/90 10/17/20 00:31 84 10/17/20 00:30 87 22 130/93 10/17/20 00:28 95 H 16 132/100 10/17/20 00:01 77 23 10/17/20 00:00 79 22 118/88 10/16/20 23:59 81 80 22 134/95 10/16/20 23:57 78 18 134/95 10/16/20 20:31 36.7 C 117 H 18 136/97 Pulse Ox 10/17/20 17:10 95 10/17/20 17:00 95 10/17/20 16:50 93 10/17/20 16:40 97 10/17/20 16:30 96 10/17/20 16:19 94 10/17/20 16:05 95 10/17/20 15:55 97 10/17/20 15:45 94 10/17/20 15:37 94 10/17/20 13:39 95 10/17/20 11:12 95 10/17/20 09:06 10/17/20 07:07 92 10/17/20 06:33 10/17/20 04:07 98 10/17/20 02:31 93 10/17/20 02:30 94 10/17/20 02:01 95 10/17/20 02:00 92 10/17/20 01:31 96 10/17/20 01:30 91 10/17/20 01:01 98 10/17/20 01:00 97 10/17/20 00:31 96 10/17/20 00:30 98 10/17/20 00:28 96 10/17/20 00:01 95 10/17/20 00:00 93 10/16/20 23:59 94 10/16/20 23:57 95 10/16/20 20:31 97 Pain Intensity Abdomen: Pain Intensity: 5 Transfer of Care Handoff Completed per policy Notes Mental Status: alert / awake / arousable and participated in evaluation Patient Amnestic to Procedure: Yes Nausea / Vomiting: adequately controlled Pain: improving with treatment Airway Patency, RR, SpO2: stable & adequate BP & HR: stable & adequate Hydration State: stable & adequate Anesthetic Complications: no major complications apparent and Pt Satisfied with anesthetic care
[2020-10-18] MEDS: MoRPHine SULFATE 4 MG/ML 1 ML CARP\\VIAL IV PRN (01:17)
[2020-10-18] MEDS: CIPROFLOXACIN / D5W 400 MG/200 ML BAG IV SCH ×2 (01:18→13:17)
[2020-10-18] MEDS: POTASSIUM CHLORIDE 20 MEQ in LACTATED RINGER'S 1,000 ML IV SCH ×2 (03:15→08:27)
[2020-10-18] MEDS: LORazepam 1 MG TAB PO PRN (03:19)
[2020-10-18] MEDS: oxyCODONE HCL IR 5 MG TAB (IMMEDIATE RELEASE) PO PRN ×4 (04:10→15:37)
[2020-10-18] MEDS: HYDROmorphone INJ 0.5 MG/0.5 ML SYR IV PRN ×6 (04:27→21:30)
[2020-10-18] MEDS: MIDODRINE HCL 10 MG TAB PO SCH ×3 (06:27→18:00)
[2020-10-18] MEDS: levETIRAcetam 500 MG TAB PO SCH ×2 (07:28→21:30)
[2020-10-18] MEDS: DOCUSATE SODIUM/SENNA 50/8.6MG TAB PO SCH ×2 (07:28→21:30)
[2020-10-18] MEDS: FLUDROCORTISONE ACETATE 0.1 MG TAB PO SCH (07:29)
[2020-10-18] MEDS: predniSONE 20 MG TAB PO SCH (07:29)
[2020-10-18] MEDS: MoRPHine SULFATE CR 15 MG TABCR PO SCH ×3 (07:29→22:47)
[2020-10-18] MEDS: FOLIC ACID 1 MG TAB PO SCH (07:29)
--- NOTE | 2020-10-18 10:10 | Hospitalist Progress Note ---
Date of Service October 18, 2020 Assessment & Plan (1) Acute pancreatitis: Pancreatic head mass on ERCP-Biopsy taken Stent placed Progressive LFT abnormalities since last month. Oncologist initially attributed transaminitis to chemotherapy for which high- dose prednisone was initiated last week. Dilaudid q2h hx NSCLC with brain mets status post stereotactic radiosurgery/brain tumor resection on chemotherapy ongoing steroid Rx, Responding to current treatment as per recent PET scan. hx seizure DSO, stable on regimen history TIA as per records Left breast cancer status post mastectomy, history BRCA gene mutation positivity Hypokalemia secondary to poor p.o. intake Cancer pain on narcotics Orthostatic hypotension on fludrocortisone and midodrine, BP stable Chronic anemia, hemoglobin at baseline Hyperglycemia likely prediabetes/steroid-induced, hemoglobin A1c of 5.31 May 2020 past tobacco abuse GMF Bowel rest, IVF, analgesia MRCP Notify patient's G oncologist (Dr. Barillas) if transaminitis attributed to biliary tract obstruction for patient to be able to stop current prednisone Rx initiated outpatient for possible chemotherapy induced hepatitis. Patient may then revert to prior Decadron regimen for brain mets. DVT prophylaxis. SCDs RE brain mets Full code ROS-No Headache, No Visual Changes, No Nausea, No Vomiting, No Fever, No Chills, No Neck Pain or Stiffness, No Chest Pain, No Palpitations, No SOB, No GREWAL, No Cough, No Sputum, No Wheezing, No Abdominal Pain, No Diarrhea, No Hematemesis, No Hemoptysis, No Unexpected Weight Loss, No Flank pain, No Melena, No Hematochezia, No Frequency, No Urgency, No Burning, No Hematuria, No Rashes, No Diaphoresis. Appetite is Normal, c/o Severe Abd Pain Physical Exam Gen-AAO x 3, Mod Distress, Afebrile Head-NCAT, EOMI, PERRLA, Anicteric Sclera, No Posterior Pharyngeal Erythema Neck-Supple, No JVD, No Thyromegaly, No Masses, No LAD, No Bruits Lungs-Clear to Auscultation Bilaterally, No Rales, No Rhonchi, No Wheezing, No Crepitus Chest-No S4, +S1, +S2, No S3, No Murmurs, No Rubs, No Gallops, No Ectopy Abdomen-Soft, Bowel Sounds Present, Tender, Non Distended, No Hepatomegaly, No Splenomegaly, No Palpable Masses, No Rebound, No Rigidity, + Guarding Musculoskeletal-Full Range of Motion Bilaterally, No CVAT Extremities-No Cyanosis, No Clubbing, No Edema Nuero-Cranial Nerves II-XII grossly intact, Motor WNL, DTRs WNL, Strength WNL, Non Focal Psych-Normal Mood Admission and Anticipated Discharge Date Admission Date: October 17, 2020 Results & Data Results & Data ([facility]) Vital Signs (Past 12 Hours) Vital Signs Temp Pulse Pulse Resp BP Pulse Ox 10/18/20 07:21 36.8 C 91 H 16 145/101 H 95 10/18/20 06:27 135/91 10/18/20 04:03 37.1 C 88 16 143/95 H 95 10/17/20 22:24 36.6 C 78 15 130/88 93 (1) Acute pancreatitis Acute pancreatitis complication: unspecified Pancreatitis type: unspecified p ancreatitis type Qualified Code(s): K85.90 - Acute pancreatitis without necrosis or infection, unspecified
--- NOTE | 2020-10-18 10:43 | Gastroenterology Progress Note ---
Date of Service October 18, 2020 Assessment & Plan (1) Elevated LFTs: (2) Epigastric abdominal pain: (3) Pancreatic mass: (4) Common biliary duct stricture: This is a 45 y/o female with complicated medical history of breast cancer, metastatic lung cancer to the brain, admitted with abdominal pain, worsening LFT elevation and elevated lipase. Yesterday underwent EGD/ERCP, noting a malignant appearing biliary stricture, and appears she has a pancreatic head mass. Covered metal CBD stent was placed, and FNA was performed. Awaiting cytology results. Today, patient continues to have abdominal discomfort. Abdomen is soft. Await cytology results Continue supportive care with hydration, can have clear liquid diet. Can advance diet as tolerated. -Continue empiric Ciprofloxacin twice a day for a total of 7 days -Avoid NSAIDs and anticoagulants for at least 5 days -Would recommend considering palliative/pain medicine evaluation to optimize her pain control - Follow-up with oncology Admission and Anticipated Discharge Date Admission Date: October 17, 2020 Supervising Physician Co-Signing Physician Notes No acute events overnite s/p eus fna and ercp yesterday PE unchanged - somnolent on my exam today labs/egd/eus/ercp reports reviewed Agree with further plan of care as per plan below. She will be informed of fna results when they return. Subjective Patient seen and examined, chart reviewed. This AM complaining of abd pain; nausea. Per nursing staff pt is receiving analgesia PRN. Denies vomiting, hematochezia, fever, CP, SOB. Review of Systems Review of Systems: All systems reviewed & are unremarkable except as noted in HPI & below Physical Exam Constitutional: WD/WN, vitals as above Eyes: + anicteric sclerae Respiratory: normal respiratory effort; no respiratory distress Cardiovascular: Rate/Rhythm: regular rate and regular rhythm Gastrointestinal (Abdomen): Inspection/Auscultation: abdomen normal to inspection and normal bowel sounds moderate tenderness upper abd pain; no rebound, guarding, distention Psychiatric: Orientation: alert and oriented x 3 Mood: + anxious mood intermittently tearful Results & Data ([facility]) Vital Signs (Past 12 Hours) Vital Signs Temp Pulse Resp BP Pulse Ox 10/18/20 07:21 36.8 C 91 H 16 145/101 H 95 10/18/20 06:27 135/91 10/18/20 04:03 37.1 C 88 16 143/95 H 95
--- NOTE | 2020-10-18 13:06 | Palliative Care Consultation ---
Date of Consultation October 18, 2020 Assessment & Plan (1) Palliative care encounter: This is an unfortunate woman who presented to the [facility] with abdominal discomfort. She has an unfortunate diagnosis of NSCLCA with brain mets s/p stereotactic radiation and brain resection and has been receiving chemotherapy and steroids for treatment with Dr. Barillas. She had a recent admission in August 2020 with lightheadedness and her LFT levels have been worsening (AST 103, ALT 411) Alk Phos 244). There was question whether her chemotherapy was causing her to have hepatitis so it was placed on hold. Additional PMH includes: seizures, TIA's, anemia of chronic disease, left breast cancer s/p mastectomy with BRCA + mutation gene. Palliative Medicine has been consulted to work on pain management. I talked with Josi in her room. She had the lights dim and was resting but was arousable. She had just received a dose of Dilaudid IV. She stated that she has a , Esteban and two children: Tin who is 19 years old and Nicole who is 21 years old. 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 Ultimately, the focus of this visit was on pain management and goals of care conversations will evolve as appropriate. (2) Abdominal pain: She claims that her abdominal pain started very abruptly over the past two days. She describes it as sharp pain that radiates across the middle of her abdomen and radiates into her lower back. She said that the Dilaudid has been helpful. She explained that she had never taken routine opioids prior to April. Sandeep matos taking the following for opioid management: MS Contin 15 mg PO Q12 Oxycontin 10mg QID PRN - utilized THREE doses in past 24 hours = 30 mg Dilaudid 1 mg IV Q 2 PRN - utilized ONE dose in the past 24 hours She may require a larger increase of long acting medication; however, smaller increase would be to change the current MS Contin q12h dosing to MS Contin 15 mg q8h (increase it by 50% rather than 100%) and evaluate breakthrough use from here, and if no improvement, increase to MS Contin 30 mg PO BID. I do think that based on the nature of her illness and how she presents on exam, along with diagnostic imaging confirming a pancreatic mass, that she may benefit from a celiac plexus block consider pain management consult to evaluate the appropriateness of this. (3) Adenocarcinoma of lung: (4) Brain metastases: (5) Seizure disorder: (6) Pancreatic mass: ERCP performed and a pancreatic head mass was noted with stent placement to follow. History of Present Illness Reason for Consultation: goals of care Requesting Physician: Dr. Cotton Attending Physician: Abel Stroud DO History of Present Illness This is an unfortunate woman who presented to the [facility] with abdominal discomfort. She has an unfortunate diagnosis of NSCLCA with brain mets s/p stereotactic radiation and brain resection and has been receiving chemotherapy and steroids for treatment with Dr. Barillas. She had a recent admission in August 2020 with lightheadedness and her LFT levels have been worsening (AST 103, ALT 411) Alk Phos 244). There was question whether her chemotherapy was causing her to have hepatitis so it was placed on hold. Additional PMH includes: seizures, TIA's, anemia of chronic disease, left breast cancer s/p mastectomy with BRCA + mutation gene. Palliative Medicine has been consulted to work on pain management. Please see A/P for further details. Thanks for involving Palliative Medicine with this individual. Allergies Allergy/AdvReac Type Severity Reaction Status Date / Time Penicillins Allergy Intermediate Swelling Verified 10/17/20 13:38 Home Medications Medication Instructions Recorded Confirmed Type folic acid 1 mg PO QAM 07/09/20 10/17/20 History ondansetron 8 mg PO Q8H PRN 07/09/20 10/17/20 History prochlorperazine maleate 10 mg PO Q6H PRN 07/09/20 10/17/20 History morphine 15 mg PO Q12H #60 tab 07/16/20 10/17/20 Rx polyethylene glycol 3350 [Miralax] 17 g PO QID PRN 07/23/20 10/17/20 History sennosides-docusate sodium 1 tab PO BID PRN 07/23/20 10/17/20 History [Senokot-S] docusate sodium 100 mg PO BID PRN 07/29/20 10/17/20 History oxycodone 5 mg PO Q6H PRN 07/29/20 10/17/20 History levetiracetam 1,500 mg PO BID 08/16/20 10/17/20 History midodrine 10 mg PO TID 08/27/20 10/17/20 History fludrocortisone 0.1 mg PO QAM #30 tab 09/02/20 10/17/20 Rx magnesium chloride [Mag 64] 64 mg PO BID #60 tab 09/02/20 10/17/20 Rx metoclopramide HCl 5 mg PO AC 09/04/20 10/17/20 History dexamethasone 4 mg PO BID@0900,1530 09/08/20 10/17/20 History diclofenac sodium 75 mg PO BID 10/17/20 10/17/20 History lorazepam 1 mg PO TID PRN 10/17/20 10/17/20 History prednisone 80 mg PO DAILY 10/17/20 10/17/20 History Patient History Medical History (Updated 10/18/20 @ 13:05 by NICHO Ariza) Abdominal pain Adenocarcinoma of lung w/ extensive lymphadenopathy in the neck, chest, abdomen; brain and bilateral adrenal metastases Brain metastases BRCA gene positive Hx of breast cancer Palliative care encounter Seizure disorder Due to tumor edematous burden Surgical History H/O bilateral mastectomy H/O craniotomy 05/2020-right frontal craniotomy for brain tumor resection H/O: hysterectomy History of cholecystectomy Family History Aunt Breast cancer Social History Smoking Status: Former smoker Tobacco Type: Cigarettes packs per day: 1; Years Smoked: 23; Second Hand Exposure: No; Hx Alcohol Use: No Hx Substance Use: No Preferred Language: Bahamian Communication Ability: Effective Purchasing Internship Required: No Beliefs That Will Affect Care: None marital status: Current Living Situation: Spouse How many Children do You have: 2 Feels Safe at Home: Yes Safety Concerns: Feels Safe At This Time Assistive Devices: Walker Review of Systems Review of Systems: [place] System Assessment Scale: Pain: 3/3 Anxiety: 1/3 SOB: 0/3 Lack of Appetite: 0/3 Tiredness: 2/3 Drowsiness: 1/3 Palliative Performance Scale: 50% Physical Exam Constitutional: well developed, well nourished, comfortable and + lethargic ENMT: Nose: + dry nasal mucous membranes Respiratory: normal respiratory effort, lungs clear to auscultation Auscultation: + diminished lung sounds Cardiovascular: Rate/Rhythm: regular rate and regular rhythm Heart Sounds: normal S1 and normal S2 Extremities: normal capillary refill; no edema Gastrointestinal (Abdomen): Percussion/Palpation: + abdomen tender and + guarding Skin: no rashes, warm and dry + pallor Psychiatric: A+Ox3, euthymic affect Insight: good insight Judgement: good judgement Results & Data ([facility]) Vital Signs (Past 12 Hours) Vital Signs Temp Pulse Resp BP Pulse Ox 10/18/20 07:21 36.8 C 91 H 16 145/101 H 95 10/18/20 06:27 135/91 10/18/20 04:03 37.1 C 88 16 143/95 H 95 PG Care Time/CCT Total # of Minutes Spent Total Time Spent with Patient: Total time spent is greater than 50% in coordination of care (as documented) at patient's floor/unit and/or counseling patient: 70 minutes with > 50% of that time spent assessing the patient, discussing goals of care and pain management with the patient, and collaborating with IDT Coding Level of Care Code 36823 Inpt Consult Level 3 Diagnoses Palliative care encounter Z51.5 Abdominal pain R10.9 Adenocarcinoma of lung C34.90 Brain metastases C79.31 Seizure disorder G40.909 Pancreatic mass K86.89 Time Spent (min) 70
[2020-10-18 14:33] LABS: Albumin Globulin Ratio 0.6 (0.9-2); Albumin Level 2.6 gm/dl (3.4-5.0); BUN Creatinine Ratio 10.9 (10-20); Bilirubin,Total 8.4 mg/dl (0.2-1); Calcium 9.8 mg/dl (8.5-10.1); Creatinine Clr Calc Pharmacy 137.6 ml/min; Est GFR (African American) 129.9 ml/min; Est GFR (Non-African American) 112.1 ml/min; Globulin 4.5 gm/dl (2.5-4.0); Potassium 4.2 mmol/L (3.5-5.1); Total Protein 7.1 gm/dl (6.4-8.2)
[2020-10-18] MEDS: HEPARIN 100 UNIT/ML 5ML FLUSH FLUSH PRN ×2 (18:35→21:31)
--- NOTE | 2020-10-18 20:42 | XRay Report ---
KUB CLINICAL HISTORY: abdominal distention COMPARISON STUDY: CT of the abdomen and pelvis October 16, 2020. MRCP October 17, 2020. FINDINGS: Bowel gas pattern is normal. Common bile duct stent is in place. There are cholecystectomy clips. Pelvic calcifications reflect phleboliths. IMPRESSION: No evidence for a bowel obstruction. ACT 112: Negative or not required by law. Electronically signed by: German Grimaldo M.D. 10/18/2020 8:40 PM
[2020-10-19 02:25] LABS: Codeine Urine NEGATIVE ng/mL (<50); Hydrocodone Urine NEGATIVE ng/mL (<50); Hydromor Urine NEGATIVE ng/mL (<50); Morphine Urine 7160 ng/mL (<50); Norhydrocodone Conf Ur NEGATIVE ng/mL (<50); Noroxycodone Urine 695 ng/mL (<50); Oxycodone Urine 587 ng/mL (<50); Oxymorph Urine 529 ng/mL (<50)
[2020-10-19] MEDS: HYDROmorphone INJ 0.5 MG/0.5 ML SYR IV PRN ×6 (03:24→23:29)
[2020-10-19] MEDS: HEPARIN 100 UNIT/ML 5ML FLUSH FLUSH PRN ×3 (03:25→23:30)
[2020-10-19] MEDS: MIDODRINE HCL 10 MG TAB PO SCH ×3 (06:23→17:50)
[2020-10-19 07:55] LABS: Hematocrit (blood only) 33.1 % (37-47); Hemoglobin 11.3 g/dL (12.0-16.0); Mean Corpuscular Hemoglobin 33.3 pg (25-34); Mean Corpuscular Hgb Conc 34.1 g/dL (32-36); Mean Corpuscular Volume 97.6 fL (80-100); Mean Platelet Volume 9.5 fL (7.4-10.4); Platelet Count 158 K/uL (130-400); RDW Coefficient of Variation 17.7 % (11.5-14.5); RDW Standard Deviation 63.4 fL (36.4-46.3); Red Blood Count 3.39 M/uL (4.2-5.4); White Blood Count 8.67 K/uL (4.8-10.8)
[2020-10-19] MEDS: MoRPHine SULFATE CR 15 MG TABCR PO SCH ×3 (08:06→23:27)
[2020-10-19] MEDS: FOLIC ACID 1 MG TAB PO SCH (08:07)
[2020-10-19] MEDS: levETIRAcetam 500 MG TAB PO SCH ×2 (08:07→21:41)
[2020-10-19] MEDS: predniSONE 20 MG TAB PO SCH (08:07)
[2020-10-19] MEDS: FLUDROCORTISONE ACETATE 0.1 MG TAB PO SCH (08:07)
[2020-10-19] MEDS: DOCUSATE SODIUM/SENNA 50/8.6MG TAB PO SCH ×2 (08:08→21:41)
[2020-10-19 08:10] LABS: Prothrombin Time 10.4 Seconds (9.0-12.0)
[2020-10-19 08:23] LABS: Albumin Level 2.5 gm/dl (3.4-5.0); BUN Creatinine Ratio 19.4 (10-20); Calcium 9.7 mg/dl (8.5-10.1); Creatinine Clr Calc Pharmacy 199.5 ml/min; Est GFR (African American) 146.8 ml/min; Est GFR (Non-African American) 126.7 ml/min; Magnesium 1.9 mg/dl (1.8-2.4); Potassium 3.7 mmol/L (3.5-5.1)
[2020-10-19 08:27] LABS: Albumin Globulin Ratio 0.6 (0.9-2); Bilirubin,Total 3.4 mg/dl (0.2-1); Globulin 4.2 gm/dl (2.5-4.0); Phosphorus 3.7 mg/dl (2.5-4.9); Total Protein 6.7 gm/dl (6.4-8.2)
--- NOTE | 2020-10-19 09:15 | Pain Management Consultation ---
Date of Consultation October 19, 2020 Assessment & Plan (1) Common biliary duct stricture: (2) Pancreatic mass: (3) Elevated lipase: (4) Elevated LFTs: (5) Acute pancreatitis: Acute pancreatitis complication: unspecified Pancreatitis type: unspecified pancreatitis type Qualified Code(s): K85.90 - Acute pancreatitis without necrosis or infection, unspecified (6) Adenocarcinoma of lung: (7) Brain metastases: (8) Hx of breast cancer: (9) BRCA gene positive: (10) Epigastric abdominal pain: Would hold on a Celiac Plexus Nerve Block for now. She states that the pain was mostly in the epigastric and the left upper abdomen for a few days prior to admission. On admission a biliary stent was placed which is causing pain in the right upper abdomen. The pain in the epigastric and left upper abdomen is mild currently. We did discuss waiting on a Celiac Plexus Nerve Block to see if the pain will continue to improve since the stent was placed. She is in agreement. She will contact our office should the pain persist. Our contact information was given to the patient. Continue medication regimen per palliative care. Please call with any questions or concerns. History of Present Illness Reason for Consultation: Abdominal pain Attending Physician: Abel Stroud DO History of Present Illness Mrs. Copeland is a 45 year old female with NSCLCA with brain metastasis. She did receive a brain resection and has been receiving chemotherapy and steroids for treatment. Patient came into the Emergency Department on 10/16/20 for 4 days of epigastric and left upper abdominal pain. She was found to have elevated LFTs and pancreatitis. She was found to have a pancreatic mass and a stent was place d in the bile duct. Since the procedure she has been experiencing pain in the right upper abdomen. The pain in the epigastrium and left upper abdomen is now mild. The right upper abdominal pain comes in waves. No aggravating or alleviating symptoms. She states that the pain in the right upper abdomen has improved since yesterday. She is currently ordered MS Contin 15 mg 3 times daily. She has been using IV Dilaudid 1 mg (used 7mg over the last 24 hours). Patient denies any nausea, vomiting, diarrhea, constipation, flank pain. Case discussed with Dr. Lulu Hand Pain Assessment Full Body Front + Back: 1. 2. Allergies Allergy/AdvReac Type Severity Reaction Status Date / Time Penicillins Allergy Intermediate Swelling Verified 10/17/20 13:38 Home Medications Medication Instructions Recorded Confirmed Type folic acid 1 mg PO QAM 07/09/20 10/17/20 History ondansetron 8 mg PO Q8H PRN 07/09/20 10/17/20 History prochlorperazine maleate 10 mg PO Q6H PRN 07/09/20 10/17/20 History morphine 15 mg PO Q12H #60 tab 07/16/20 10/17/20 Rx polyethylene glycol 3350 [Miralax] 17 g PO QID PRN 07/23/20 10/17/20 History sennosides-docusate sodium 1 tab PO BID PRN 07/23/20 10/17/20 History [Senokot-S] docusate sodium 100 mg PO BID PRN 07/29/20 10/17/20 History oxycodone 5 mg PO Q6H PRN 07/29/20 10/17/20 History levetiracetam 1,500 mg PO BID 08/16/20 10/17/20 History midodrine 10 mg PO TID 08/27/20 10/17/20 History fludrocortisone 0.1 mg PO QAM #30 tab 09/02/20 10/17/20 Rx magnesium chloride [Mag 64] 64 mg PO BID #60 tab 09/02/20 10/17/20 Rx metoclopramide HCl 5 mg PO AC 09/04/20 10/17/20 History dexamethasone 4 mg PO BID@0900,1530 09/08/20 10/17/20 History diclofenac sodium 75 mg PO BID 10/17/20 10/17/20 History lorazepam 1 mg PO TID PRN 10/17/20 10/17/20 History prednisone 80 mg PO DAILY 10/17/20 10/17/20 History Patient History Medical History Abdominal pain Adenocarcinoma of lung w/ extensive lymphadenopathy in the neck, chest, abdomen; brain and bilateral adrenal metastases Brain metastases BRCA gene positive Hx of breast cancer Palliative care encounter Seizure disorder Due to tumor edematous burden Surgical History H/O bilateral mastectomy H/O craniotomy 05/2020-right frontal craniotomy for brain tumor resection H/O: hysterectomy History of cholecystectomy Family History Aunt Breast cancer Social History Smoking Status: Former smoker Tobacco Type: Cigarettes packs per day: 1; Years Smoked: 23; Second Hand Exposure: No; Hx Alcohol Use: No Hx Substance Use: No Preferred Language: Hebrew Communication Ability: Effective Label Coder Required: No Beliefs That Will Affect Care: None marital status: Current Living Situation: Spouse How many Children do You have: 2 Feels Safe at Home: Yes Safety Concerns: Feels Safe At This Time Assistive Devices: Glasses Physical Exam Physical Exam: GENERAL: This is a 45 year old female that does not appear in any acute distress. HEAD/FACE: Normocephalic and atraumatic. EYES: No drainage or conjunctival injection. ENT: Nose without bleeding or discharge. Oral mucosa moist. NECK: Full ROM without apparent pain. No swelling or masses noted. RESPIRATORY: Patient with unlabored breathing. No signs of respiratory distress. CHEST/AXILLA: Chest movement symmetrical. No deformities noted. ABDOMEN/GI: No distension. There is mild tenderness along the entire upper abdomen. No trigger points noted. No lower abdominal tenderness. BACK: Moves without difficulty SKIN: [place], warm and dry. No rash noted. MS/EXTREMITY: No swelling, no deformities. Moving extremities appropriately. NEURO: Alert and appears oriented. Speech is fluent. Cranial Nerves are grossly intact. PSYCH: Alert, pleasant, affect is calm
--- NOTE | 2020-10-19 09:33 | Hospitalist Progress Note ---
Date of Service October 19, 2020 Assessment & Plan (1) Acute pancreatitis: Pancreatic head mass likely malignant neoplasm (Likely Primary Lung) on ERCP- Biopsy taken Stent placed Progressive LFT abnormalities since last month. Oncologist initially attributed transaminitis to chemotherapy for which high- dose prednisone was initiated last week. Dilaudid q2h hx NSCLC with brain mets status post stereotactic radiosurgery/brain tumor resection on chemotherapy ongoing steroid Rx, Responding to current treatment as per recent PET scan. hx seizure DSO, stable on regimen history TIA as per records Left breast cancer status post mastectomy, history BRCA gene mutation positivity Hypokalemia secondary to poor p.o. intake Cancer pain on narcotics Orthostatic hypotension on fludrocortisone and midodrine, BP stable Chronic anemia, hemoglobin at baseline Hyperglycemia likely prediabetes/steroid-induced, hemoglobin A1c of 5.31 May 2020 past tobacco abuse GMF Bowel rest, IVF, analgesia MRCP Notify patient's G oncologist (Dr. Barillas) if transaminitis attributed to bi liary tract obstruction for patient to be able to stop current prednisone Rx initiated outpatient for possible chemotherapy induced hepatitis. Patient may then revert to prior Decadron regimen for brain mets. DVT prophylaxis. SCDs RE brain mets Full code ROS-No Headache, No Visual Changes, No Nausea, No Vomiting, No Fever, No Chills, No Neck Pain or Stiffness, No Chest Pain, No Palpitations, No SOB, No GREWAL, No Cough, No Sputum, No Wheezing, + Abdominal Pain, No Diarrhea, No Hematemesis, No Hemoptysis, No Unexpected Weight Loss, No Flank pain, No Melena, No Hematochez ia, No Frequency, No Urgency, No Burning, No Hematuria, No Rashes, No Diaphoresis. Appetite is Normal, c/o Severe Abd Pain Physical Exam Gen-AAO x 3, Mod Distress, Afebrile, [place] Upper Chest Head-NCAT, EOMI, PERRLA, Anicteric Sclera, No Posterior Pharyngeal Erythema Neck-Supple, No JVD, No Thyromegaly, No Masses, No LAD, No Bruits Lungs-Clear to Auscultation Bilaterally, No Rales, No Rhonchi, No Wheezing, No Crepitus Chest-No S4, +S1, +S2, No S3, No Murmurs, No Rubs, No Gallops, No Ectopy Abdomen-Soft, Bowel Sounds Present, Tender, Non Distended, No Hepatomegaly, No Splenomegaly, No Palpable Masses, No Rebound, No Rigidity, + Guarding Musculoskeletal-Full Range of Motion Bilaterally, No CVAT Extremities-No Cyanosis, No Clubbing, No Edema Nuero-Cranial Nerves II-XII grossly intact, Motor WNL, DTRs WNL, Strength WNL, Non Focal Psych-Normal Mood Admission and Anticipated Discharge Date Admission Date: October 17, 2020 Results & Data Results & Data ([facility]) Vital Signs (Past 12 Hours) Vital Signs Temp Pulse Resp BP Pulse Ox 10/19/20 07:17 36.7 C 75 18 120/84 94 10/18/20 22:51 36.6 C 70 16 102/70 93 (1) Acute pancreatitis Acute pancreatitis complication: unspecified Pancreatitis type: unspecified pancreatitis type Qualified Code(s): K85.90 - Acute pancreatitis without necrosis or infection, unspecified
--- NOTE | 2020-10-19 12:22 | Palliative Care Progress Note ---
Date of Service October 19, 2020 Assessment & Plan (1) Abdominal pain: with newly diagnosed pancreatic mass, presumed pancreatic cancer. She is anxious to go home. Will convert IV hydromorphone to po in anticipation of discharge. Continue morphine ER 15mg every eight hours. (2) Constipation: She is on senna S bid without relief. Add miralax. (3) Palliative care encounter: (4) Pancreatic mass: (5) Adenocarcinoma of lung: Admission and Anticipated Discharge Date Admission Date: October 17, 2020 Subjective Sleeping but easily arousable. She c/o 6/10 pain across her upper abdomen when aroused. Pain is 8/10 at worst. It has been decreased to 3/10 with IV hydromorphone. She has not had BM in several days though po intake has been poor. Review of Systems Review of Systems: [place] Symptom Assessment Scale Pain 2/3 Dyspnea 0/3 Anxiety 2/3 Nausea 0/3 Anorexia 2/3 Fatigue 1/3 Drowsiness 1/3 Palliative Performance Score 50% Physical Exam Constitutional: no acute distress Respiratory: normal respiratory effort; no labored breathing Gastrointestinal (Abdomen): Percussion/Palpation: + abdomen tender (epigastrium, LUQ) Musculoskeletal: Extremities: extremities normal to inspection Neurologic: awake; not confused Results & Data ([facility]) Vital Signs (Past 12 Hours) Vital Signs Temp Pulse Resp BP Pulse Ox 10/19/20 07:17 98.1 F 75 18 120/84 94 PG Care Time/CCT Total # of Minutes Spent Total Time Spent with Patient: Total time spent is greater than 50% in coordination of care (as documented) at patient's floor/unit and/or counseling patient: total time spent 35 minutes with more than 50% of time spent on symptom management Coding Level of Care Code 01077 Subseq Hosp Care Lvl 3 Diagnoses Abdominal pain R10.9 Constipation K59.00 Palliative care encounter Z51.5 Pancreatic mass K86.89 Adenocarcinoma of lung C34.90
--- NOTE | 2020-10-19 14:09 | Gastroenterology Progress Note ---
Date of Service October 19, 2020 Assessment & Plan (1) Elevated LFTs: (2) Epigastric abdominal pain: This is a 45 y/o female with complicated medical history of breast cancer, metastatic lung cancer to the brain, admitted with abdominal pain, worsening LFT elevation and elevated lipase, underwent EGD/ERCP, noting a malignant appearing biliary stricture, and appears she has a pancreatic head mass. Covered metal CBD stent was placed, and FNA was performed. Awaiting cytology results. Today, patient feels improvement in her abd pain. Abdomen is soft. LFTs trending down, WBC WNL. Await cytology results - Diet as tolerated -Continue empiric Ciprofloxacin twice a day for a total of 7 days -Avoid NSAIDs and anticoagulants for at least 5 days -Would recommend considering palliative/pain medicine evaluation to optimize her pain control - Follow-up with oncology as scheduled next week - No GI contraindication to planned discharge tomorrow Thank you for allowing us to participate in the care of this patient. Please call with any acute changes, questions or concerns. Please see addendum below with additional recommendation from my supervising physician. (3) Pancreatic mass: (4) Common biliary duct stricture: Admission and Anticipated Discharge Date Admission Date: October 17, 2020 Supervising Physician Co-Signing Physician Notes I saw and evaluated the patient this afternoon. She reports that she is feeling much improved today and is tolerating an oral diet. Her liver enzymes do seem to be improving 48 hours after her recent ERCP. Unfortunately it appears that she does have a new pancreatic mass and this could be related to her underlying lung cancer or perhaps a 2nd primary given her genetic history. Recommendations Antibiotic coverage for total of 7 days, Sonny preciado as outpatient Await cytology results Please call with any questions or concerns, GI to sign off Repeat liver enzymes in 1-2 weeks Subjective Patient seen and examined, chart reviewed. This AM seems much improved overall, abd pain controlled with current regimen of analgesia. Tolerated regular breakfast. Denies vomiting, hematochezia, fever, CP, SOB. Review of Systems Review of Systems: All systems reviewed & are unremarkable except as noted in HPI & below Physical Exam Constitutional: WD/WN, vitals as above Eyes: + anicteric sclerae Respiratory: normal respiratory effort Cardiovascular: Rate/Rhythm: regular rate and regular rhythm Gastrointestinal (Abdomen): Inspection/Auscultation: abdomen normal to inspection and normal bowel sounds Percussion/Palpation: abdomen soft; abdomen nontender Skin: no jaundice Psychiatric: A+Ox3, euthymic affect Results & Data ([facility]) Vital Signs (Past 12 Hours) Vital Signs Temp Pulse Resp BP Pulse Ox 10/19/20 07:17 36.7 C 75 18 120/84 94 Laboratory Results 10/19/20 10/19/20 10/19/20 Range/Units 07:37 07:37 07:37 WBC (4.8-10.8) K/uL RBC (4.2-5.4) M/uL Hgb (12.0-16.0) g/dL Hct (37-47) % MCV (80-100) fL MCH (25-34) pg MCHC (32-36) g/dL RDW Std Deviation (36.4-46.3) fL RDW Coeff of Suri (11.5-14.5) % Plt Count (130-400) K/uL MPV (7.4-10.4) fL PT 10.4 (9.0-12.0) Seconds INR 1.0 (0.9-1.1) Sodium 137 (136-145) mmol/L Potassium 3.7 (3.5-5.1) mmol/L Chloride 102 (98-107) mmol/L Carbon Dioxide 28 (21-32) mmol/L Anion Gap 7.0 (3-11) BUN 8 (7-18) mg/dl Creatinine 0.40 L (0.6-1.2) mg/dl Est Cr Clr Drug Dosing 199.5 ml/min Est GFR ( Amer) 146.8 ml/min Est GFR (Non-Af Amer) 126.7 ml/min BUN/Creatinine Ratio 19.4 (10-20) Glucose 109 H (70-99) mg/dl Calcium 9.7 (8.5-10.1) mg/dl Ionized Calcium 1.19 (1.12-1.32) mmol/L Phosphorus 3.7 (2.5-4.9) mg/dl Magnesium 1.9 (1.8-2.4) mg/dl Total Bilirubin 3.4 H D (0.2-1) mg/dl AST 81 H (15-37) U/L ALT 521 H (12-78) U/L Alkaline Phosphatase 505 H (45-117) U/L Total Protein 6.7 (6.4-8.2) gm/dl Albumin 2.5 L (3.4-5.0) gm/dl Globulin 4.2 H (2.5-4.0) gm/dl Albumin/Globulin Ratio 0.6 L (0.9-2) Lipase 171 (73-393) U/L U Codeine Confrm GC/MS (<50) ng/mL Ur Morphine (GC/MS) (<50) ng/mL Ur Hydrocodone (GC/MS) (<50) ng/mL Ur Norhydrocodone (<50) ng/mL Ur Noroxycodone (<50) ng/mL Urine Oxycodone (GC/MS) (<50) ng/mL U Oxymorphone GC/MS (<50) ng/mL Ur Hydromorphone (GC/MS) (<50) ng/mL Drug Screen Comment 10/19/20 10/18/20 10/16/20 Range/Units 07:37 13:47 23:27 WBC 8.67 (4.8-10.8) K/uL RBC 3.39 L (4.2-5.4) M/uL Hgb 11.3 L (12.0-16.0) g/dL Hct 33.1 L (37-47) % MCV 97.6 (80-100) fL MCH 33.3 (25-34) pg MCHC 34.1 (32-36) g/dL RDW Std Deviation 63.4 H (36.4-46.3) fL RDW Coeff of Suri 17.7 H (11.5-14.5) % Plt Count 158 (130-400) K/uL MPV 9.5 (7.4-10.4) fL PT (9.0-12.0) Seconds INR (0.9-1.1) Sodium 135 L (136-145) mmol/L Potassium 4.2 (3.5-5.1) mmol/L Chloride 100 (98-107) mmol/L Carbon Dioxide 27 (21-32) mmol/L Anion Gap 8.0 (3-11) BUN 6 L (7-18) mg/dl Creatinine 0.58 L (0.6-1.2) mg/dl Est Cr Clr Drug Dosing 137.6 ml/min Est GFR ( Amer) 129.9 ml/min Est GFR (Non-Af Amer) 112.1 ml/min BUN/Creatinine Ratio 10.9 (10-20) Glucose 105 H (70-99) mg/dl Calcium 9.8 (8.5-10.1) mg/dl Ionized Calcium (1.12-1.32) mmol/L Phosphorus (2.5-4.9) mg/dl Magnesium (1.8-2.4) mg/dl Total Bilirubin 8.4 H D (0.2-1) mg/dl AST 140 H (15-37) U/L ALT 693 H (12-78) U/L Alkaline Phosphatase 554 H (45-117) U/L Total Protein 7.1 (6.4-8.2) gm/dl Albumin 2.6 L (3.4-5.0) gm/dl Globulin 4.5 H (2.5-4.0) gm/dl Albumin/Globulin Ratio 0.6 L (0.9-2) Lipase 754 H (73-393) U/L U Codeine Confrm GC/MS NEGATIVE (<50) ng/mL Ur Morphine (GC/MS) 7160 H (<50) ng/mL Ur Hydrocodone (GC/MS) NEGATIVE (<50) ng/mL Ur Norhydrocodone NEGATIVE (<50) ng/mL Ur Noroxycodone 695 H (<50) ng/mL Urine Oxycodone (GC/MS) 587 H (<50) ng/mL U Oxymorphone GC/MS 529 H (<50) ng/mL Ur Hydromorphone (GC/MS) NEGATIVE (<50) ng/mL Drug Screen Comment SEE NOTE
[2020-10-19] MEDS: HYDROmorphone HCL 2 MG TAB PO PRN ×2 (17:01→21:41)
[2020-10-20] MEDS: HYDROmorphone INJ 0.5 MG/0.5 ML SYR IV PRN ×7 (02:27→20:22)
[2020-10-20] MEDS: HYDROmorphone HCL 2 MG TAB PO PRN (03:18)
[2020-10-20 05:49] LABS: Hematocrit (blood only) 34.2 % (37-47); Hemoglobin 11.7 g/dL (12.0-16.0); Mean Corpuscular Hemoglobin 33.6 pg (25-34); Mean Corpuscular Hgb Conc 34.2 g/dL (32-36); Mean Corpuscular Volume 98.3 fL (80-100); Mean Platelet Volume 9.5 fL (7.4-10.4); Platelet Count 162 K/uL (130-400); RDW Coefficient of Variation 17.6 % (11.5-14.5); RDW Standard Deviation 63.3 fL (36.4-46.3); Red Blood Count 3.48 M/uL (4.2-5.4); White Blood Count 9.34 K/uL (4.8-10.8)
[2020-10-20 06:23] LABS: Albumin Level 2.5 gm/dl (3.4-5.0); BUN Creatinine Ratio 28.5 (10-20); Calcium 9.5 mg/dl (8.5-10.1); Est GFR (African American) 149.3 ml/min; Est GFR (Non-African American) 128.8 ml/min; Potassium 2.8 mmol/L (3.5-5.1)
[2020-10-20 06:45] LABS: Albumin Globulin Ratio 0.6 (0.9-2); Bilirubin,Total 1.9 mg/dl (0.2-1); Globulin 4.1 gm/dl (2.5-4.0); Total Protein 6.6 gm/dl (6.4-8.2)
[2020-10-20] MEDS: MoRPHine SULFATE CR 15 MG TABCR PO SCH ×3 (07:15→23:26)
[2020-10-20] MEDS: MIDODRINE HCL 10 MG TAB PO SCH ×3 (07:16→18:10)
[2020-10-20] MEDS: FLUDROCORTISONE ACETATE 0.1 MG TAB PO SCH (09:08)
[2020-10-20] MEDS: DOCUSATE SODIUM/SENNA 50/8.6MG TAB PO SCH ×2 (09:08→20:22)
[2020-10-20] MEDS: predniSONE 20 MG TAB PO SCH (09:09)
[2020-10-20] MEDS: levETIRAcetam 500 MG TAB PO SCH ×2 (09:09→20:22)
[2020-10-20] MEDS: FOLIC ACID 1 MG TAB PO SCH (09:09)
[2020-10-20] MEDS ORDERED: MoRPHine SULFATE CR 15 MG TABCR PO SCH (09:10)
--- NOTE | 2020-10-20 09:13 | Hospitalist Progress Note ---
Date of Service October 20, 2020 Assessment & Plan (1) Acute pancreatitis: Pancreatic head mass likely malignant neoplasm (Likely Primary Lung) on ERCP- Biopsy taken Stent placed Progressive LFT abnormalities since last month. Oncologist initially attributed transaminitis to chemotherapy for which high- dose prednisone was initiated last week. Dilaudid IV q2h, MS Contin 20 Q8, MSIR 15 Q4 hx NSCLC with brain mets status post stereotactic radiosurgery/brain tumor resection on chemotherapy ongoing steroid Rx, Responding to current treatment as per recent PET scan. hx seizure DSO, stable on regimen history TIA as per records Left breast cancer status post mastectomy, history BRCA gene mutation positivity Hypokalemia secondary to poor p.o. intake Cancer pain on narcotics Orthostatic hypotension on fludrocortisone and midodrine, BP stable Chronic anemia, hemoglobin at baseline Hyperglycemia likely prediabetes/steroid-induced, hemoglobin A1c of 5.31 May 2020 past tobacco abuse IVF, analgesia Notify patient's [facility] oncologist (Dr. Barillas) if transaminitis attributed to biliary tract obstruction for patient to be able to stop current prednisone Rx initiated outpatient for possible chemotherapy induced hepatitis. Patient may then revert to prior Decadron regimen for brain mets. DVT prophylaxis. SCDs RE brain mets Full code ROS-No Headache, No Visual Changes, No Nausea, No Vomiting, No Fever, No Chills, No Neck Pain or Stiffness, No Chest Pain, No Palpitations, No SOB, No GREWAL, No Cough, No Sputum, No Wheezing, + Abdominal Pain, No Diarrhea, No Hematemesis, No Hemoptysis, No Unexpected Weight Loss, No Flank pain, No Melena, No Hematochezia, No Frequency, No Urgency, No Burning, No Hematuria, No Rashes, No Diaphoresis. Appetite is Normal, c/o Severe Abd Pain Physical Exam Gen-AAO x 3, Mod Distress, Afebrile, Port L Upper Chest Head-NCAT, EOMI, PERRLA, Anicteric Sclera, No Posterior Pharyngeal Erythema Neck-Supple, No JVD, No Thyromegaly, No Masses, No LAD, No Bruits Lungs-Clear to Auscultation Bilaterally, No Rales, No Rhonchi, No Wheezing, No Crepitus Chest-No S4, +S1, +S2, No S3, No Murmurs, No Rubs, No Gallops, No Ectopy Abdomen-Soft, Bowel Sounds Present, Tender, Non Distended, No Hepatomegaly, No Splenomegaly, No Palpable Masses, No Rebound, No Rigidity, + Guarding Musculoskeletal-Full Range of Motion Bilaterally, No CVAT Extremities-No Cyanosis, No Clubbing, No Edema Nuero-Cranial Nerves II-XII grossly intact, Motor WNL, DTRs WNL, Strength WNL, Non Focal Psych-Normal Mood Admission and Anticipated Discharge Date Admission Date: October 17, 2020 Results & Data Results & Data ([facility]) Vital Signs (Past 12 Hours) Vital Signs Temp Pulse Resp BP Pulse Ox 10/20/20 06:55 37.1 C 67 16 116/81 95 10/19/20 22:36 37.1 C 64 18 114/82 91 (1) Acute pancreatitis Acute pancreatitis complication: unspecified Pancreatitis type: unspecified pancreatitis type Qualified Code(s): K85.90 - Acute pancreatitis without necrosis or infection, unspecified
[2020-10-20] MEDS: HEPARIN 100 UNIT/ML 5ML FLUSH FLUSH PRN ×2 (09:19→14:30)
[2020-10-20] MEDS: POTASSIUM CHLORIDE / WTR 10 MEQ/100 ML PLCT IV SCH ×4 (15:37→19:14)
[2020-10-20] MEDS ORDERED: SODIUM CHLORIDE 0.9% 1,000 ML IV SCH (16:15)
[2020-10-20] MEDS: MoRPHine SULFATE IR 15 MG TAB (IMMEDIATE RELEASE) PO PRN (18:13)
[2020-10-21] MEDS: HYDROmorphone INJ 0.5 MG/0.5 ML SYR IV PRN ×5 (00:34→10:50)
[2020-10-21] MEDS: HEPARIN 100 UNIT/ML 5ML FLUSH FLUSH PRN ×4 (00:34→11:30)
[2020-10-21] MEDS: MoRPHine SULFATE IR 15 MG TAB (IMMEDIATE RELEASE) PO PRN ×2 (03:24→13:46)
[2020-10-21 05:44] LABS: Hematocrit (blood only) 34.4 % (37-47); Hemoglobin 11.6 g/dL (12.0-16.0); Mean Corpuscular Hemoglobin 33.5 pg (25-34); Mean Corpuscular Hgb Conc 33.7 g/dL (32-36); Mean Corpuscular Volume 99.4 fL (80-100); Mean Platelet Volume 9.6 fL (7.4-10.4); Platelet Count 142 K/uL (130-400); RDW Coefficient of Variation 17.2 % (11.5-14.5); RDW Standard Deviation 62.6 fL (36.4-46.3); Red Blood Count 3.46 M/uL (4.2-5.4); White Blood Count 8.06 K/uL (4.8-10.8)
[2020-10-21 06:10] LABS: Basophils # (auto) 0.02 K/uL (0-0.2); Basophils % (auto) 0.2 %; Eosinophils # (auto) 0.01 K/uL (0-0.5); Eosinophils % (auto) 0.1 %; Immature Granulocytes # (auto) 0.43 K/uL (0.00-0.02); Immature Granulocytes % (auto) 5.3 %; Lymphocytes # (auto) 1.37 K/uL (1.2-3.4); Monocytes # (auto) 0.75 K/uL (0.11-0.59); Monocytes % (auto) 9.3 %; Neutrophils # (auto) 5.48 K/uL (1.4-6.5); Neutrophils % (auto) 68.1 %; Polychromasia 1+
[2020-10-21 06:22] LABS: Albumin Globulin Ratio 0.6 (0.9-2); Albumin Level 2.7 gm/dl (3.4-5.0); BUN Creatinine Ratio 17.8 (10-20); Bilirubin,Total 1.5 mg/dl (0.2-1); Calcium 9.2 mg/dl (8.5-10.1); Est GFR (African American) 149.3 ml/min; Est GFR (Non-African American) 128.8 ml/min; Globulin 4.2 gm/dl (2.5-4.0); Potassium 3.3 mmol/L (3.5-5.1); Total Protein 6.9 gm/dl (6.4-8.2)
[2020-10-21] MEDS: MoRPHine SULFATE CR 15 MG TABCR PO SCH (07:02)
[2020-10-21] MEDS: MIDODRINE HCL 10 MG TAB PO SCH ×2 (07:02→13:46)
[2020-10-21] MEDS: FOLIC ACID 1 MG TAB PO SCH (08:17)
[2020-10-21] MEDS: FLUDROCORTISONE ACETATE 0.1 MG TAB PO SCH (08:17)
[2020-10-21] MEDS: DOCUSATE SODIUM/SENNA 50/8.6MG TAB PO SCH (08:18)
[2020-10-21] MEDS: levETIRAcetam 500 MG TAB PO SCH (08:18)
--- NOTE | 2020-10-21 08:56 | Discharge Summary ---
Date of Service October 21, 2020 Admission HPI Per Admitting Provider History obtained from patient and records. Medical history significant for NSCLC with brain mets status post stereotactic radiosurgery, brain tumor resection (05/2020) on steroid Rx on chemotherapy, history seizures, history TIA, breast cancer status post mastectomy, history BRCA gene mutation positivity, chronic anemia (baseline hemoglobin of 11), orthostatic hypotension on fludrocortisone and midodrine, past tobacco abuse. Recent confinement August 2020 for orthostatic lightheadedness, possible adrenal insufficiency. Patient discharged on midodrine and fludrocortisone course. Patient noted to have abnormal LFTs during confinement. Hepatic steatosis on ultrasound. Chemotherapy possibly contributing to transaminitis as per documentation. Outpatient LFT abnormalities worsening from last week. AST 103, ALT 411, alk phos 244. Oncologist concerned about hepatitis from chemotherapy medication. Prednisone at 1 mg/kg/day (80 mg daily) recommended by oncologist. Patient to hold Decadron 4 mg twice daily for brain mets while on prednisone as per documentation. The last few days, patient noted achy epigastric pain without nausea, fever, chills. Usual constipation. No recent EtOH intake. No prior episodes. 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 Admission Exam Per Admitting Provider GENERAL: uncomfortable, no respiratory distress SKIN: Normal color, warm HEENT: Bespectacled, pink palpebral conjunctivae, no ptosis, dry buccal mucosa NECK : Supple, no tenderness CHEST : CTA, no tenderness HEART : RRR, no obvious murmurs ABDOMEN: Some distention, epigastric tenderness EXTREMITIES : No LE swelling/tenderness, no other conspicuous deformities noted NEUROLOGIC : Coherent, no facial asymmetry, no other gross focality Principal Diagnosis Acute pancreatitis: Pancreatic head mass hx NSCLC with brain mets hx seizure DSO history TIA Left breast cancer Hypokalemia Cancer pain Orthostatic hypotension Chronic anemia Hyperglycemia Discharge Exam See below Discharge Data Allergies Allergy/AdvReac Type Severity Reaction Status Date / Time Penicillins Allergy Intermediate Swelling Verified 10/17/20 13:38 Consultations 10/17/20 00:29 ED Decision to Admit Stat 10/17/20 03:35 Consult Gastroenterology Routine 10/18/20 10:12 Consult Palliative Care Routine 10/18/20 16:22 Consult Pain Management Routine Procedures Performed Operation Date: 10/17/20 12:20 Actual Procedures p Endoscopic Ultrasonography Upper, (Not Applicable) - DO maryse Gaffney Endoscopic Retrograde Cholangiopancreatography(Not Applicable) - DO maryse Gaffney Esophagogastroduodenoscopy(Not Applicable) - Josee Ding DO Ordered Studies 10/16/20 22:23 CT abd pelvis wo con Urgent 10/17/20 01:55 MR MRCP Routine 10/17/20 13:24 FL ERCP biliary ductal Routine 10/17/20 13:34 US upper EUS PACS images Routine Current Diagnoses Malignant neoplasm of unspecified part of unspecified bronchus or lung (10/17/20) Secondary malignant neoplasm of brain (10/17/20) Constipation, unspecified (10/17/20) Obstruction of bile duct (10/17/20) Acute pancreatitis without necrosis or infection, unspecified (10/17/20) Other specified diseases of pancreas (10/17/20) Epigastric pain (10/17/20) Unspecified abdominal pain (10/17/20) Abnormal levels of other serum enzymes (10/17/20) Other specified abnormal findings of blood chemistry (10/17/20) Encounter for other preprocedural examination (10/17/20) Genetic susceptibility to malignant neoplasm of breast (10/17/20) Genetic susceptibility to other malignant neoplasm (10/17/20) Encounter for palliative care (10/17/20) Personal history of malignant neoplasm of breast (10/17/20) Allergies Penicillins Allergy (Intermediate, Verified 10/17/20 13:38) Swelling Height/Weight/Isolation Height 5 ft 7 in Weight 83.6 kg Chemistry 10/20/20 10/21/20 05:30 05:18 Sodium 139 139 Potassium 2.8 L D 3.3 L D Chloride 104 106 Carbon Dioxide 28 28 Anion Gap 7.0 5.0 BUN 11 7 Creatinine 0.38 L 0.38 L Glucose 79 73 Hospital Course (1) Acute pancreatitis: Pancreatic head mass likely malignant neoplasm (Likely Primary Lung) on ERCP- Biopsy taken Stent placed Progressive LFT abnormalities since last month. Oncologist initially attributed transaminitis to chemotherapy for which high-d ose prednisone was initiated last week. MS Contin 15 Q8, MSIR 15 Q4 hx NSCLC with brain mets status post stereotactic radiosurgery/brain tumor resection on chemotherapy ongoing steroid Rx, Responding to current treatment as per recent PET scan. hx seizure DSO, stable on regimen history TIA as per records Left breast cancer status post mastectomy, history BRCA gene mutation positivity Hypokalemia secondary to poor p.o. intake Cancer pain on narcotics Orthostatic hypotension on fludrocortisone and midodrine, BP stable Chronic anemia, hemoglobin at baseline Hyperglycemia likely prediabetes/steroid-induced, hemoglobin A1c of 5.31 May 2020 past tobacco abuse IVF, analgesia Notify patient's [facility] [place]ologist (Dr. Barillas) if transaminitis attributed to biliary tract obstruction for patient to be able to stop current prednisone Rx initiated outpatient for possible chemotherapy induced hepatitis. Patient may then revert to prior Decadron regimen for brain mets. Path pending from EUS DVT prophylaxis. DC home today, F/U c Dr Barillas, Dr Ding GI, and Dr Walters Palliative Full code ROS-No Headache, No Visual Changes, No Nausea, No Vomiting, No Fever, No Chills, No Neck Pain or Stiffness, No Chest Pain, No Palpitations, No SOB, No GREWAL, No Cough, No Sputum, No Wheezing, + Abdominal Pain, No Diarrhea, No Hematemesis, No Hemoptysis, No Unexpected Weight Loss, No Flank pain, No Melena, No Hematochezia, No Frequency, No Urgency, No Burning, No Hematuria, No Rashes, No Diaphoresis. Appetite is Normal, c/o Severe Abd Pain Physical Exam Gen-AAO x 3, Mod Distress, Afebrile, Port L Upper Chest Head-NCAT, EOMI, PERRLA, Anicteric Sclera, No Posterior Pharyngeal Erythema Neck-Supple, No JVD, No Thyromegaly, No Masses, No LAD, No Bruits Lungs-Clear to Auscultation Bilaterally, No Rales, No Rhonchi, No Wheezing, No Crepitus Chest-No S4, +S1, +S2, No S3, No Murmurs, No Rubs, No Gallops, No Ectopy Abdomen-Soft, Bowel Sounds Present, Tender, Non Distended, No Hepatomegaly, No Splenomegaly, No Palpable Masses, No Rebound, No Rigidity, + Guarding Musculoskeletal-Full Range of Motion Bilaterally, No CVAT Extremities-No Cyanosis, No Clubbing, No Edema Nuero-Cranial Nerves II-XII grossly intact, Motor WNL, DTRs WNL, Strength WNL, Non Focal Psych-Normal Mood Total Time Total Time Spent Total Time Spent (In Minutes): 45 mins Total Time Includes: Examination of the Patient, Discharge Planning, Medication Reconciliation and Communication With Other Providers Discharge Plan Discharge Items Patient Disposition: Home - Self-Care Reason For Visit: PANCREATITIS Discharge Diagnosis: Acute pancreatitis: Pancreatic head mass hx NSCLC with brain mets hx seizure DSO history TIA Left breast cancer Hypokalemia Cancer pain Orthostatic hypotension Chronic anemia Hyperglycemia Condition on Discharge: Fair Activity: Resume your previous activity Lifting: Gradually increase as tolerated Bathing: No limitations Sexual Activity: When tolerated Exercise/Sports: Gradually increase as tolerated Driving/Machine Use: No limitations Weightbearing: Full weightbearing Non-emergency contact: Primary Care Provider, C[employer] and Oncologist Call non-emergency contact if: you have any medication questions Follow-up/Referrals: Shelly Walters MD [Physician] - (First opening) Josee Ding DO [Physician] - (call for first opening) Jasiel Fritz DO [Primary Care Provider] - Dietitian Info: Frequent small meals Diet: Regular Addtl Attending Provider Instructions: None Pending Studies at Discharge: No Stand-Alone Forms: [facility], Smoking Cessation Medications and DC Order Prescriptions: New acetaminophen 325 mg Tablet 325 mg PO Q6H PRN (Reason: fever or pain) Qty: 90 RF: 0 morphine 15 mg Tablet Extended Release 15 mg PO Q8H Qty: 90 RF: 0 midodrine 10 mg Tablet 10 mg PO TID@0700,1300,1800 Qty: 90 RF: 0 morphine 15 mg Tablet 15 mg PO Q4H PRN (Reason: pain) Qty: 90 RF: 0 fludrocortisone 0.1 mg Tablet 0.1 mg PO QAM Qty: 30 RF: 0 Continued folic acid 1 mg Tablet 1 mg PO QAM RF: 0 ondansetron 8 mg Tablet,Disintegrating 8 mg PO Q8H PRN (Reason: Nausea) RF: 0 prochlorperazine maleate 10 mg Tablet 10 mg PO Q6H PRN (Reason: Nausea) RF: 0 polyethylene glycol 3350 [Miralax] 17 gram powder in packet 17 g PO QID PRN (Reason: Constipation) RF: 0 sennosides-docusate sodium [Senokot-S] 8.6-50 mg tablet 1 tab PO BID PRN (Reason: Constipation) RF: 0 docusate sodium 100 mg capsule 100 mg PO BID PRN (Reason: Constipation) RF: 0 diclofenac sodium 75 mg tablet,delayed release (DR/EC) 75 mg PO BID RF: 0 dexamethasone 4 mg tablet 4 mg PO BID@0900,1530 Qty: 60 RF: 0 levetiracetam 500 mg tablet 1,500 mg PO BID RF: 0 magnesium chloride [Mag 64] 64 mg Tablet,Delayed Release (Dr/Ec) 64 mg PO BID Qty: 60 RF: 0 metoclopramide HCl 5 mg tablet 5 mg PO AC RF: 0 Discontinued morphine 15 mg Tablet Extended Release 15 mg PO Q12H Qty: 60 RF: 0 oxycodone 5 mg tablet 5 mg PO Q6H PRN (Reason: Pain, Severe) RF: 0 prednisone 10 mg tablet 80 mg PO DAILY RF: 0 lorazepam 1 mg tablet 1 mg PO TID PRN (Reason: Anxiety) RF: 0 midodrine 10 mg tablet 10 mg PO TID RF: 0 fludrocortisone 0.1 mg Tablet 0.1 mg PO QAM Qty: 30 RF: 0 Discharge Orders: Discharge Order (Routine); Ordered 10/21/20 Ordered By: Abel Stroud Admission Data Admit Date/Time: 10/17/20 02:19 Attending Provider: Abel Stroud Admit Provider: George Us Primary Care Provider: Jasiel Fritz Other Providers: George Us ; Shira Trujillo ; Stormy Choe ; Bradly Gilbert ; Phyllis Hartmann ; Neil Funes ; Josee Ding ; Micaela Curtis ; Branden Xie ; Gabby Thorne ; Shannon Garcia ; Karla Rodriguez ; Bianca Singh ; Israel Gurrola ; Shelly Walters ; Lulu Hand
[2020-10-21] MEDS ORDERED: predniSONE 20 MG TAB PO SCH (09:00)
== END 2020-10-21 14:19 | disposition home or self-care (01) | DRG 438 ==
LOC: ED 20:22 → 3E 10-17 02:19

== ENCOUNTER 2020-10-22 09:48 | Inpatient (IN) ==
[2020-10-22] MEDS ORDERED: MoRPHine SULFATE 2 MG/ML CARP IV STA (10:17)
[2020-10-22] MEDS ORDERED: SODIUM CHLORIDE 0.9% 1000ML 1,000 ML IV STA (10:25)
[2020-10-22] MEDS ORDERED: ONDANSETRON INJ 2 MG/ML 2 ML VIAL IV STA (10:25)
--- NOTE | 2020-10-22 10:51 | Emergency Department Note ---
History of Present Illness General Chief complaint: Pain (Generalized) Stated complaint: WAS JUST HERE FOR SURGERY, IN ALOT OF PAIN Time Seen by Provider: 10/22/20 10:20 Source: patient Mode of arrival: EMS Limitations: no limitations History of Present Illness Provider complaint: Epigastric abdominal pain Maximum Pain Intensity: 8 This is a 45-year-old female with epigastric abdominal pain. She was discharged yesterday after having pancreatitis and a stent placed. The patient states that her home meds did not help her pain much and her pain was significantly worse overnight and today. She came in for additional pain management and evaluation. She reports that her symptoms feel similar to when she was admitted previously with pancreatitis. Denies any nausea or vomiting. No diarrhea. Pain is her primary issue. She does have a history of metastatic breast cancer. Home Medications Medication Instructions Recorded Confirmed Type folic acid 1 mg PO QAM 07/09/20 10/22/20 History ondansetron 8 mg PO Q8H PRN 07/09/20 10/22/20 History prochlorperazine maleate 10 mg PO Q6H PRN 07/09/20 10/22/20 History morphine 15 mg PO Q12H #60 tab 07/16/20 10/17/20 Rx polyethylene glycol 3350 [Miralax] 17 g PO QID PRN 07/23/20 10/22/20 History sennosides-docusate sodium 1 tab PO BID PRN 07/23/20 10/22/20 History [Senokot-S] docusate sodium 100 mg PO BID PRN 07/29/20 10/22/20 History levetiracetam 1,500 mg PO BID 08/16/20 10/22/20 History magnesium chloride [Mag 64] 64 mg PO BID #60 tab 09/02/20 10/22/20 Rx metoclopramide HCl 5 mg PO AC 09/04/20 10/22/20 History diclofenac sodium 75 mg PO BID 10/17/20 10/22/20 History acetaminophen 325 mg PO Q6H PRN #90 tab 10/21/20 10/22/20 Rx dexamethasone 4 mg PO BID@0900,1530 #60 tab 10/21/20 10/22/20 Rx fludrocortisone 0.1 mg PO QAM #30 tab 10/21/20 10/22/20 Rx midodrine 10 mg PO TID@0700,1300,1800 #90 tab 10/21/20 10/22/20 Rx morphine 15 mg PO Q4H PRN #90 tab 10/21/20 10/22/20 Rx morphine 15 mg PO Q8H #90 tab 10/21/20 10/22/20 Rx Allergies Allergy/AdvReac Type Severity Reaction Status Date / Time Penicillins Allergy Intermediate Swelling Verified 10/22/20 10:29 Past Med/Surg History Medical History Abdominal pain Adenocarcinoma of lung w/ extensive lymphadenopathy in the neck, chest, abdomen; brain and bilateral adrenal metastases Brain metastases BRCA gene positive Hx of breast cancer Palliative care encounter Seizure disorder Due to tumor edematous burden Surgical History H/O bilateral mastectomy H/O craniotomy 05/2020-right frontal craniotomy for brain tumor resection H/O: hysterectomy History of cholecystectomy Family History Aunt Breast cancer Social History Smoking Status: Current every day smoker Tobacco Type: Cigarettes packs per day: 1; Years Smoked: 23; Second Hand Exposure: No; Hx Alcohol Use: No Hx Substance Use: No Preferred Language: Kyrgyz Communication Ability: Effective 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 Beliefs That Will Affect Care: None marital status: Current Living Situation: Spouse How many Children do You have: 2 Feels Safe at Home: Yes Assistive Devices: Glasses Review of Systems A total of 10 systems reviewed and were otherwise negative Physical Exam Vital Signs Vital Signs - 24 hr 10/22/20 10:01 10/22/20 10:47 10/22/20 10:57 Temperature 36.5 C Temperature Source Skin Pulse Rate 145 H Pulse Rate [Finger] 131 H Pulse Rhythm [Finger] Pulse Strength [Finger] Respiratory Rate 18 22 Respiratory Effort / Characteristics Non-Labored Spontaneous Respiratory Depth Normal Respiratory Pattern Blood Pressure 110/83 Blood Pressure [Right Arm] 122/88 Blood Pressure Mean 92 Blood Pressure Mean [Right Arm] 99 Blood Pressure Position Sitting Blood Pressure Position [Right Arm] Pulse Oximetry 95 92 83 L Oxygen Delivery Method Room Air Room Air Room Air Oxygen Flow Rate Sepsis Recent Fever Within 48 Hours No Sepsis New/Unexplained Change in Mental Status N/A Sepsis Action Taken by Nursing No Action Required Oxygen Flow Rate - Titration Pulse Oximetry Post Tiitration 10/22/20 11:06 10/22/20 11:22 10/22/20 12:26 Temperature Temperature Source Pulse Rate Pulse Rate [Finger] 127 H 107 H Pulse Rhythm [Finger] Pulse Strength [Finger] Respiratory Rate 26 H 14 Respiratory Effort / Characteristics Respiratory Depth Respiratory Pattern Blood Pressure Blood Pressure [Right Arm] 121/81 118/83 Blood Pressure Mean Blood Pressure Mean [Right Arm] 94 94 Blood Pressure Position Blood Pressure Position [Right Arm] Pulse Oximetry 93 98 90 Oxygen Delivery Method Nasal Cannula Room Air Room Air Oxygen Flow Rate 3 Sepsis Recent Fever Within 48 Hours Sepsis New/Unexplained Change in Mental Status Sepsis Action Taken by Nursing Oxygen Flow Rate - Titration Pulse Oximetry Post Tiitration 10/22/20 12:56 10/22/20 13:20 10/22/20 13:23 Temperature Temperature Source Pulse Rate Pulse Rate [Finger] 125 H 101 H Pulse Rhythm [Finger] Regular Pulse Strength [Finger] Normal Respiratory Rate 24 18 Respiratory Effort / Characteristics Non-Labored Spontaneous Respiratory Depth Normal Respiratory Pattern Regular Blood Pressure Blood Pressure [Right Arm] 134/87 125/75 Blood Pressure Mean Blood Pressure Mean [Right Arm] 102 91 Blood Pressure Position Blood Pressure Position [Right Arm] Lying Pulse Oximetry 96 96 78 L Oxygen Delivery Method Room Air Nasal Cannula Nasal Cannula Oxygen Flow Rate 2 0 Sepsis Recent Fever Within 48 Hours Sepsis New/Unexplained Change in Mental Status Sepsis Action Taken by Nursing Oxygen Flow Rate - Titration 2 Pulse Oximetry Post Tiitration 96 CONSTITUTIONAL/VITAL SIGNS: Reviewed / noted above. GENERAL: Non-toxic in appearance. INTEGUMENTARY: Warm, dry, and [place]. HEAD: Normocephalic. EYES: without scleral icterus or trauma. ENT/OROPHARYNX: clear and moist. LYMPHADENOPATHY/NECK: Is supple without lymphadenopathy or meningismus. RESPIRATORY: Lungs clear and equal. CARDIOVASCULAR: Regular rate and rhythm. GI/ABDOMEN: Soft and under the epigastric area. No organomegaly or pulsatile mass. No rebound or guarding. Normal bowel sounds. EXTREMITIES: Warm and well perfused. BACK: No CVA tenderness. NEUROLOGICAL: Intact without focal deficits. PSYCHIATRIC: normal affect. MUSCULOSKELETAL: Normally developed with good muscle tone. TRIAGE NURSING DOCUMENTATION REVIEWED. Course Administered Medications Hydromorphone HCl (Hydromorphone Inj 0.5 Mg/0.5 Ml Syr) 0.5 mg IV Q15M PRN PRN Reason: Pain Stop: 11/05/20 10:24 Last Admin: 10/22/20 12:56 Dose: 0.5 mg Documented by: [id number] Admin: 10/22/20 12:08 Dose: 0.5 mg Documented by: [id number] Admin: 10/22/20 11:48 Dose: 0.5 mg Documented by: [id number] Admin: 10/22/20 11:24 Dose: 0.5 mg Documented by: [id number] Admin: 10/22/20 10:54 Dose: 0.5 mg Documented by: [id number] Discontinued Medications Sodium Chloride (Nss 1000ml) 1,000 mls @ 999 mls/hr IV .Q1H1M STA Stop: 10/22/20 11:25 Last Infusion: 10/22/20 12:10 Dose: 0 mls/hr Documented by: [id number] Admin: 10/22/20 10:49 Dose: 999 mls/hr Documented by: [id number] Ioversol (Optiray 320 100ml) 94 ml IV ONCE ONE Stop: 10/22/20 11:38 Last Admin: 10/22/20 11:38 Dose: 94 ml Documented by: [id number] Morphine Sulfate (Morphine Sulfate 2 Mg/Ml Carp) 2 mg IV NOW STA Stop: 10/22/20 10:18 Last Admin: 10/22/20 10:54 Dose: Not Given Documented by: [id number] Ondansetron HCl (Ondansetron Inj 2 Mg/Ml 2 Ml Vial) 4 mg IV NOW STA Stop: 10/22/20 10:26 Last Admin: 10/22/20 10:54 Dose: 4 mg Documented by: [id number] Medical Decision Making Differential Diagnosis Differential considered: pancreatitis, hepatitis, acute cholecystitis, AAA, UTI, pyelonephritis, kidney stones, appendicitis, diverticulitis, shingles, bowel obstruction, mesenteric ischemia, intussusception,hernia,. Medical Records Attestation: I reviewed the patient's medical records. Home Medications Current Medication List: was personally reviewed by me Laboratory Data Attestation: I reviewed the patient's lab results. Result diagrams: 10/22/20 10:45 10/22/20 10:45 Lab Results 10/22/20 10/22/20 10/22/20 Range/Units 10:45 10:45 13:40 WBC 10.80 (4.8-10.8) K/uL RBC 3.81 L (4.2-5.4) M/uL Hgb 13.3 (12.0-16.0) g/dL Hct 38.1 (37-47) % MCV 100.0 (80-100) fL MCH 34.9 H (25-34) pg MCHC 34.9 (32-36) g/dL RDW Std Deviation 60.4 H (36.4-46.3) fL RDW Coeff of Suri 16.5 H (11.5-14.5) % Plt Count 168 (130-400) K/uL MPV 9.3 (7.4-10.4) fL Immature Gran % (Auto) 3.9 % Neut % (Auto) 76.0 % Lymph % (Auto) 13.3 % [place] % (Auto) 6.3 % Eos % (Auto) 0.3 % Baso % (Auto) 0.2 % Neut # (Auto) 8.21 H (1.4-6.5) K/uL Lymph # (Auto) 1.44 (1.2-3.4) K/uL [place] # (Auto) 0.68 H (0.11-0.59) K/uL Eos # (Auto) 0.03 (0-0.5) K/uL Baso # (Auto) 0.02 (0-0.2) K/uL Immature Gran # (Auto) 0.42 H (0.00-0.02) K/uL Absolute Nucleated RBC 0.02 H (0-0) K/uL Nucleated RBC % (auto) 0.2 % Sodium 139 (136-145) mmol/L Potassium 3.5 (3.5-5.1) mmol/L Chloride 104 (98-107) mmol/L Carbon Dioxide 27 (21-32) mmol/L Anion Gap 8.0 (3-11) BUN 7 (7-18) mg/dl Creatinine 0.58 L (0.6-1.2) mg/dl Est Cr Clr Drug Dosing 136.3 ml/min Est GFR ( Amer) 129.9 ml/min Est GFR (Non-Af Amer) 112.1 ml/min BUN/Creatinine Ratio 12.5 (10-20) Glucose 79 (70-99) mg/dl Calcium 9.1 (8.5-10.1) mg/dl Total Bilirubin 2.0 H (0.2-1) mg/dl AST 105 H (15-37) U/L ALT 397 H (12-78) U/L Alkaline Phosphatase 383 H (45-117) U/L Total Protein 7.6 (6.4-8.2) gm/dl Albumin 3.0 L (3.4-5.0) gm/dl Globulin 4.6 H (2.5-4.0) gm/dl Albumin/Globulin Ratio 0.7 L (0.9-2) Lipase 583 H (73-393) U/L Urine Color Urine Appearance (Clear) Urine pH (4.5-7.5) Ur Specific [place] (1.000-1.030) Urine Protein (Negative) Urine Glucose (UA) (Negative) Urine Ketones (Negative) Urine Blood (Negative) Urine Nitrite (Negative) Urine Bilirubin (Negative) Urine Urobilinogen (Negative) Ur Leukocyte Esterase (Negative) Urine WBC (Auto) (0-5) /hpf Urine RBC (Auto) (0-4) /hpf U Hyaline Cast (Auto) (0-5) /lpf U Epithel Cells (Auto) (0-5) /lpf Urine Bacteria (Auto) (Negative) COVID-19 Eval Order Covid19 at [facility] 10/22/20 Range/Units Unknown WBC (4.8-10.8) K/uL RBC (4.2-5.4) M/uL Hgb (12.0-16.0) g/dL Hct (37-47) % MCV (80-100) fL MCH (25-34) pg MCHC (32-36) g/dL RDW Std Deviation (36.4-46.3) fL RDW Coeff of Suri (11.5-14.5) % Plt Count (130-400) K/uL MPV (7.4-10.4) fL Immature Gran % (Auto) % Neut % (Auto) % Lymph % (Auto) % [place] % (Auto) % Eos % (Auto) % Baso % (Auto) % Neut # (Auto) (1.4-6.5) K/uL Lymph # (Auto) (1.2-3.4) K/uL [place] # (Auto) (0.11-0.59) K/uL Eos # (Auto) (0-0.5) K/uL Baso # (Auto) (0-0.2) K/uL Immature Gran # (Auto) (0.00-0.02) K/uL Absolute Nucleated RBC (0-0) K/uL Nucleated RBC % (auto) % Sodium (136-145) mmol/L Potassium (3.5-5.1) mmol/L Chloride (98-107) mmol/L Carbon Dioxide (21-32) mmol/L Anion Gap (3-11) BUN (7-18) mg/dl Creatinine (0.6-1.2) mg/dl Est Cr Clr Drug Dosing ml/min Est GFR ( Amer) ml/min Est GFR (Non-Af Amer) ml/min BUN/Creatinine Ratio (10-20) Glucose (70-99) mg/dl Calcium (8.5-10.1) mg/dl Total Bilirubin (0.2-1) mg/dl AST (15-37) U/L ALT (12-78) U/L Alkaline Phosphatase (45-117) U/L Total Protein (6.4-8.2) gm/dl Albumin (3.4-5.0) gm/dl Globulin (2.5-4.0) gm/dl Albumin/Globulin Ratio (0.9-2) Lipase (73-393) U/L Urine Color Dark Yellow Urine Appearance Clear (Clear) Urine pH 7.5 (4.5-7.5) Ur Specific [place] 1.012 (1.000-1.030) Urine Protein Trace H (Negative) Urine Glucose (UA) Negative (Negative) Urine Ketones Negative (Negative) Urine Blood Negative (Negative) Urine Nitrite Negative (Negative) Urine Bilirubin Negative (Negative) Urine Urobilinogen Negative (Negative) Ur Leukocyte Esterase Negative (Negative) Urine WBC (Auto) 1-5 (0-5) /hpf Urine RBC (Auto) 0-4 (0-4) /hpf U Hyaline Cast (Auto) 0 (0-5) /lpf U Epithel Cells (Auto) 10-20 H (0-5) /lpf Urine Bacteria (Auto) Negative (Negative) COVID-19 Eval Order Imaging Data Radiologist's Impression: Abdomen/Pelvis CT 10/22/20 10:25 CT abd pelvis IV con only CLINICAL HISTORY: abd pain HISTORY OF RECENT PANCREATIC STENT COMPARISON STUDY: Noncontrast CT scan dated 10/16/2020, MRCP dated 10/17/2020 TECHNIQUE: The patient was scanned in a dynamic helical fashion during i ntravenous administration of 95 cc of Optiray 320 A dose lowering technique was utilized adhering to the principles of ALARA. CT DOSE: 440.14 mGy.cm FINDINGS: Lower chest: There are bilateral breast implants. There is mild thickening of the minor fissure. There is a stable 3 mm left lower lobe pulmonary nodule. In addition there are tiny centrilobular nodules. Liver: There is pneumobilia, consistent with a patent biliary enteric stent. No focal hepatic masses are visualized. The hepatic and portal veins appear patent. Gallbladder: Surgically absent Spleen: Normal in size and attenuation. Pancreas: There is decreased peripancreatic infiltration. There is persistent mild pancreatic ductal dilatation with a distal common duct cut off sign. Adrenal glands: There are persistent bilateral adrenal gland nodules. Kidneys: There is symmetric renal cortical enhancement. The kidneys are normal in size without hydronephrosis. Bowel: There are no transition zones indicate bowel obstruction. The appendix appears normal. There is no evidence of acute diverticulitis. Peritoneum: There is no intraperitoneal free air or abdominal ascites. Vasculature: The abdominal aorta is normal in course and caliber. Adenopathy: There is persistent mesenteric and mild retroperitoneal lymphadenopathy. There is an enlarged susanna hepatis lymph node. Pelvic viscera: The uterus is surgically absent. There is mild focal wall thickening involving the right posterior bladder. Skeletal structures: No destructive osseous lesions are seen. IMPRESSION: 1. Interval placement of a biliary enteric stent with secondary pneumobilia 2. Decreasing peripancreatic inflammation 3. Persistent mild dilatation the pancreatic duct with a distal pancreatic duct cut off sign 4. Tiny lower lobe centrilobular pulmonary nodules 5. Persistent mesenteric, susanna hepatis, and retroperitoneal lymphadenopathy 6. Mild focal wall thickening involving the right posterior bladder 7. Stable adrenal masses 8. No evidence of bowel obstruction. No evidence of free air 5. Normal appendix. No evidence of acute diverticulitis. ACT 112: Negative or not required by law. Electronically signed by: Axel Hook M.D. 10/22/2020 12:00 PM MDM Narrative Patient presents with worsening epigastric abdominal pain with a recent history of pancreatitis and stent and discharge from the hospital yesterday. Her heart rate was 145. Vital signs are otherwise stable. The patient CBC was unremarkable. Chemistry panel shows a lipase of 583. This is up from 293 yesterday. Alkaline phosphatase, AST and ALT about the same as yesterday. CT scan of the abdomen pelvis shows interval placement of a biliary enteric stent with secondary pneumobilia decreased peripancreatic inflammation. Is a patient's ongoing symptoms, she was given IV Dilaudid here. She will be seen by the hospitalist for further inpatient evaluation and care. She was also treated with IV fluids as well as IV Zofran. Impression & Plan Abdominal pain, epigastric, Metastatic cancer Discharge Plan Visit Data Chief Complaint: Pain (Generalized) Stated Complaint: WAS JUST HERE FOR SURGERY, IN ALOT OF PAIN ED Provider: Loy White Discharge Problem: Abdominal pain, epigastric, Metastatic cancer Patient Disposition: Being Evaluated by Hospitalist Forms Stand Alone Forms: [facility] [employer] Prescriptions Prescriptions: No Action folic acid 1 mg Tablet 1 mg PO QAM RF: 0 ondansetron 8 mg Tablet,Disintegrating 8 mg PO Q8H PRN (Reason: Nausea) RF: 0 prochlorperazine maleate 10 mg Tablet 10 mg PO Q6H PRN (Reason: Nausea) RF: 0 polyethylene glycol 3350 [Miralax] 17 gram powder in packet 17 g PO QID PRN (Reason: Constipation) RF: 0 sennosides-docusate sodium [Senokot-S] 8.6-50 mg tablet 1 tab PO BID PRN (Reason: Constipation) RF: 0 docusate sodium 100 mg capsule 100 mg PO BID PRN (Reason: Constipation) RF: 0 diclofenac sodium 75 mg tablet,delayed release (DR/EC) 75 mg PO BID RF: 0 acetaminophen 325 mg Tablet 325 mg PO Q6H PRN (Reason: fever or pain) Qty: 90 RF: 0 morphine 15 mg Tablet Extended Release 15 mg PO Q8H Qty: 90 RF: 0 midodrine 10 mg Tablet 10 mg PO TID@0700,1300,1800 Qty: 90 RF: 0 morphine 15 mg Tablet 15 mg PO Q4H PRN (Reason: pain) Qty: 90 RF: 0 fludrocortisone 0.1 mg Tablet 0.1 mg PO QAM Qty: 30 RF: 0 dexamethasone 4 mg tablet 4 mg PO BID@0900,1530 Qty: 60 RF: 0 levetiracetam 500 mg tablet 1,500 mg PO BID RF: 0 magnesium chloride [Mag 64] 64 mg Tablet,Delayed Release (Dr/Ec) 64 mg PO BID Qty: 60 RF: 0 metoclopramide HCl 5 mg tablet 5 mg PO AC RF: 0 Referrals Referrals: Jasiel Fritz DO [Primary Care Provider] -
[2020-10-22] MEDS: HYDROmorphone INJ 0.5 MG/0.5 ML SYR IV PRN ×5 (10:54→12:56)
[2020-10-22 10:59] LABS: Basophils # (auto) 0.02 K/uL (0-0.2); Basophils % (auto) 0.2 %; Eosinophils # (auto) 0.03 K/uL (0-0.5); Eosinophils % (auto) 0.3 %; Hematocrit (blood only) 38.1 % (37-47); Hemoglobin 13.3 g/dL (12.0-16.0); Immature Granulocytes # (auto) 0.42 K/uL (0.00-0.02); Immature Granulocytes % (auto) 3.9 %; Lymphocytes # (auto) 1.44 K/uL (1.2-3.4); Lymphocytes % (auto) 13.3 %; Mean Corpuscular Hemoglobin 34.9 pg (25-34); Mean Corpuscular Hgb Conc 34.9 g/dL (32-36); Mean Platelet Volume 9.3 fL (7.4-10.4); Monocytes # (auto) 0.68 K/uL (0.11-0.59); Monocytes % (auto) 6.3 %; Neutrophils # (auto) 8.21 K/uL (1.4-6.5); Nucleated RBC # (auto) 0.02 K/uL (0-0); Nucleated RBC % (auto) 0.2 %; Platelet Count 168 K/uL (130-400); RDW Coefficient of Variation 16.5 % (11.5-14.5); RDW Standard Deviation 60.4 fL (36.4-46.3); Red Blood Count 3.81 M/uL (4.2-5.4)
[2020-10-22 11:03] LABS: Appearance Urine Clear (Clear); Bacteria Urine Automated Negative (Negative); Bilirubin Urine Negative (Negative); Blood Urine Negative (Negative); Cast Urine Automated 0 /lpf (0-5); Color Urine Dark Yellow; Glucose Urine UA Negative (Negative); Ketones Urine Negative (Negative); Leukocyte Esterase Urine Negative (Negative); Nitrite Urine Negative (Negative); RBC Urine Automated 0-4 /hpf (0-4); Specific Gravity Urine 1.012 (1.000-1.030); Urobilinogen Urine Negative (Negative); pH Urine 7.5 (4.5-7.5)
[2020-10-22 11:13] LABS: Protein Urine Trace (Negative)
[2020-10-22 11:14] LABS: BUN Creatinine Ratio 12.5 (10-20); Calcium 9.1 mg/dl (8.5-10.1); Creatinine Clr Calc Pharmacy 136.3 ml/min; Est GFR (African American) 129.9 ml/min; Est GFR (Non-African American) 112.1 ml/min; Potassium 3.5 mmol/L (3.5-5.1)
[2020-10-22 11:17] LABS: Albumin Globulin Ratio 0.7 (0.9-2); Globulin 4.6 gm/dl (2.5-4.0); Total Protein 7.6 gm/dl (6.4-8.2)
[2020-10-22] MEDS ORDERED: OPTIRAY 320 100ml IV ONE (11:37)
--- NOTE | 2020-10-22 12:01 | CT Scan Report ---
CT abd pelvis IV con only CLINICAL HISTORY: abd pain HISTORY OF RECENT PANCREATIC STENT COMPARISON STUDY: Noncontrast CT scan dated 10/16/2020, MRCP dated 10/17/2020 TECHNIQUE: The patient was scanned in a dynamic helical fashion during intravenous administration of 95 cc of Optiray 320 A dose lowering technique was utilized adhering to the principles of ALARA. CT DOSE: 440.14 mGy.cm FINDINGS: Lower chest: There are bilateral breast implants. There is mild thickening of the minor fissure. Ther e is a stable 3 mm left lower lobe pulmonary nodule. In addition there are tiny centrilobular nodules . Liver: There is pneumobilia, consistent with a patent biliary enteric stent. No focal hepatic masses are visualized. The hepatic and portal veins appear patent. Gallbladder: Surgically absent Spleen: Normal in size and attenuation. Pancreas: There is decreased peripancreatic infiltration. There is persistent mild pancreatic ductal dilatation with a distal common duct cut off sign. Adrenal glands: There are persistent bilateral adrenal gland nodules. Kidneys: There is symmetric renal cortical enhancement. The kidneys are normal in size without hydron ephrosis. Bowel: There are no transition zones indicate bowel obstruction. The appendix appears normal. There i s no evidence of acute diverticulitis. Peritoneum: There is no intraperitoneal free air or abdominal ascites. Vasculature: The abdominal aorta is normal in course and caliber. Adenopathy: There is persistent mesenteric and mild retroperitoneal lymphadenopathy. There is an enlarged susanna hepatis lymph node. Pelvic viscera: The uterus is surgically absent. There is mild focal wall thickening involving the ri ght posterior bladder. Skeletal structures: No destructive osseous lesions are seen. IMPRESSION: 1. Interval placement of a biliary enteric stent with secondary pneumobilia 2. Decreasing peripancreatic inflammation 3. Persistent mild dilatation the pancreatic duct with a distal pancreatic duct cut off sign 4. Tiny lower lobe centrilobular pulmonary nodules 5. Persistent mesenteric, susanna hepatis, and retroperitoneal lymphadenopathy 6. Mild focal wall thickening involving the right posterior bladder 7. Stable adrenal masses 8. No evidence of bowel obstruction. No evidence of free air 5. Normal appendix. No evidence of acute diverticulitis. ACT 112: Negative or not required by law. Electronically signed by: Axel Hook M.D. 10/22/2020 12:00 PM
--- NOTE | 2020-10-22 13:20 | History & Physical Report ---
Date of Service October 22, 2020 Assessment & Plan (1) Abdominal pain: (2) Pancreatic mass: (3) Elevated LFTs: (4) Anxiety: (5) Adenocarcinoma of lung: (6) Orthostatic lightheadedness: (7) BRCA gene positive: (8) Hx of breast cancer: (9) Seizure disorder: (10) Brain metastases: (11) DVT prophylaxis: Patient will be on a regimen of MSIR 15 mg every 4 for breakthrough pain, MS Contin 15 mg every 8, Dilaudid 1 mg IV every 2H, consult palliative and pain management, she will currently be under observation. Gentle IV fluids, n.p.o. except meds and sips and chips. History of Present Illness Chief Complaint: Abd pain Primary Care Provider: Jasiel Fritz DO 45-year-old female with a past medical history of orthostatic hypotension brain metastases from lung and breast cancer, seizure disorder, BRCA gene positive, acute pancreatitis, adenocarcinoma of lung, anxiety, he was discharged yesterday after she was treated with a bout of acute pancreatitis. She wanted to go home yesterday on the pain regimen reestablished orally, but she could not tolerate the regimen when she got home. She came into the ER complaining of abdominal pain and demanding Dilaudid. On her previous admission was she was discharged yesterday from she had an ERCP with a stent placed, her LFTs and lipase were down and she was discharged today she came in her lipase was up and her LFTs were up as well. I will bring her in under observation consult pain management Dr. Lulu Hand for input and reconsult palliative care for hospice planning. Allergies Allergy/AdvReac Type Severity Reaction Status Date / Time Penicillins Allergy Intermediate Swelling Verified 10/22/20 10:29 Home Medications Medication Instructions Recorded Confirmed Type folic acid 1 mg PO QAM 07/09/20 10/22/20 History ondansetron 8 mg PO Q8H PRN 07/09/20 10/22/20 History prochlorperazine maleate 10 mg PO Q6H PRN 07/09/20 10/22/20 History morphine 15 mg PO Q12H #60 tab 07/16/20 10/17/20 Rx polyethylene glycol 3350 [Miralax] 17 g PO QID PRN 07/23/20 10/22/20 History sennosides-docusate sodium 1 tab PO BID PRN 07/23/20 10/22/20 History [Senokot-S] docusate sodium 100 mg PO BID PRN 07/29/20 10/22/20 History levetiracetam 1,500 mg PO BID 08/16/20 10/22/20 History magnesium chloride [Mag 64] 64 mg PO BID #60 tab 09/02/20 10/22/20 Rx metoclopramide HCl 5 mg PO AC 09/04/20 10/22/20 History diclofenac sodium 75 mg PO BID 10/17/20 10/22/20 History acetaminophen 325 mg PO Q6H PRN #90 tab 10/21/20 10/22/20 Rx dexamethasone 4 mg PO BID@0900,1530 #60 tab 10/21/20 10/22/20 Rx fludrocortisone 0.1 mg PO QAM #30 tab 10/21/20 10/22/20 Rx midodrine 10 mg PO TID@0700,1300,1800 #90 tab 10/21/20 10/22/20 Rx morphine 15 mg PO Q4H PRN #90 tab 10/21/20 10/22/20 Rx morphine 15 mg PO Q8H #90 tab 10/21/20 10/22/20 Rx Past Med/Surg History Medical History Abdominal pain Adenocarcinoma of lung w/ extensive lymphadenopathy in the neck, chest, abdomen; brain and bilateral adrenal metastases Brain metastases BRCA gene positive Hx of breast cancer Palliative care encounter Seizure disorder Due to tumor edematous burden Surgical History H/O bilateral mastectomy H/O craniotomy 05/2020-right frontal craniotomy for brain tumor resection H/O: hysterectomy History of cholecystectomy Family History Aunt Breast cancer Social History Smoking Status: Current every day smoker Tobacco Type: Cigarettes packs per day: 1; Years Smoked: 23; Second Hand Exposure: No; Hx Alcohol Use: No Hx Substance Use: No Preferred Language: Nepali Communication Ability: Effective Restaurant Cook Required: No Beliefs That Will Affect Care: None marital status: Current Living Situation: Spouse How many Children do You have: 2 Feels Safe at Home: Yes Assistive Devices: Glasses Review of Systems Review of Systems: ROS-No Headache, No Visual Changes, No Nausea, No Vomiting, No Fever, No Chills, No Neck Pain or Stiffness, No Chest Pain, No Palpitations, No SOB, No GREWAL, No Cough, No Sputum, No Wheezing, severe abdominal Pain, No Diarrhea, No Hematemesis, No Hemoptysis, No Unexpected Weight Loss, No Flank pain, No Melena, No Hematochezia, No Frequency, No Urgency, No Burning, No Hematuria, No Rashes, No Diaphoresis. Appetite is Normal Physical Exam Gen-AAO x 3, moderate pain, Afebrile Head-NCAT, EOMI, PERRLA, Anicteric Sclera, No Posterior Pharyngeal Erythema Neck-Supple, No JVD, No Thyromegaly, No Masses, No LAD, No Bruits Lungs-Clear to Auscultation Bilaterally, No Rales, No Rhonchi, No Wheezing, No Crepitus Chest-tachycardic, no S4, +S1, +S2, No S3, No Murmurs, No Rubs, No Gallops, No Ectopy, positive Chemo-Port left upper chest Abdomen-Soft, Bowel Sounds Present, tender, Non Distended, No Hepatomegaly, No Splenomegaly, No Palpable Masses, No Rebound, No Rigidity, No Guarding Musculoskeletal-Full Range of Motion Bilaterally, No CVAT Extremities-No Cyanosis, No Clubbing, No Edema Nuero-Cranial Nerves II-XII grossly intact, Motor WNL, DTRs WNL, Strength WNL, Non Focal Psych-anxious Results & Data Results & Data ([facility]) Vital Signs (Past 12 Hours) Vital Signs Temp Pulse Pulse Resp BP BP Pulse Ox 10/22/20 12:56 125 H 24 134/87 96 10/22/20 12:26 107 H 14 118/83 90 10/22/20 11:22 127 H 26 H 121/81 98 10/22/20 11:06 93 10/22/20 10:57 83 L 10/22/20 10:47 131 H 22 122/88 92 10/22/20 10:01 36.5 C 145 H 18 110/83 95 Allergies Penicillins Allergy (Intermediate, Verified 10/22/20 10:29) Swelling Height/Weight/Isolation Height 5 ft 7 in Weight 82 kg Chemistry 10/22/20 10:45 Sodium 139 Potassium 3.5 Chloride 104 Carbon Dioxide 27 Anion Gap 8.0 BUN 7 Creatinine 0.58 L Glucose 79 Urinalysis 10/22/20 Unknown Urine Color Dark Yellow Urine Appearance Clear Urine pH 7.5 Ur Specific [place] 1.012 Urine Protein Trace H Urine Glucose (UA) Negative Urine Ketones Negative Urine Blood Negative Urine Nitrite Negative Urine Bilirubin Negative Code Status & VTE Plan Code Status Full code VTE Prophylaxis Plan VTE Prophylaxis will be ordered: Yes
[2020-10-22] MEDS ORDERED: ACETAMINOPHEN 325 MG TAB PO PRN (16:10)
[2020-10-22] MEDS ORDERED: PROCHLORPERAZINE MALEATE 10 MG TAB PO PRN (16:10)
[2020-10-22] MEDS ORDERED: ONDANSETRON 8MG OD TAB PO PRN (16:10)
[2020-10-22] MEDS ORDERED: POLYETHYLENE (MIRALAX) 17 GM PACK PO PRN (16:10)
[2020-10-22] MEDS ORDERED: DOCUSATE SODIUM 100 MG CAP PO PRN (16:10)
[2020-10-22] MEDS ORDERED: DOCUSATE SODIUM/SENNA 50/8.6MG TAB PO PRN (16:10)
[2020-10-22] MEDS: MoRPHine SULFATE CR 15 MG TABCR PO SCH ×2 (16:32→23:13)
[2020-10-22] MEDS: HYDROmorphone INJ 1 MG/ML SYRINGE IV PRN ×3 (16:32→21:12)
[2020-10-22] MEDS: D5W AND 1/2NSS + 20MEQ KCL 20 MEQ/1,000 ML BAG IV SCH (17:23)
[2020-10-22] MEDS: dexAMETHasone 4 MG TAB PO SCH (17:32)
[2020-10-22] MEDS: HEPARIN SOD 5,000 UNIT/0.5 ML VIAL SQ SCH ×2 (17:33→20:53)
[2020-10-22] MEDS: FLUDROCORTISONE ACETATE 0.1 MG TAB PO SCH (17:33)
[2020-10-22] MEDS: METOCLOPRAMIDE HCL 5 MG TABLET PO SCH (17:34)
[2020-10-22] MEDS: MIDODRINE HCL 10 MG TAB PO SCH (17:35)
[2020-10-22] MEDS: MoRPHine SULFATE IR 15 MG TAB (IMMEDIATE RELEASE) PO PRN (17:44)
[2020-10-22] MEDS: levETIRAcetam 500 MG TAB PO SCH (20:50)
[2020-10-22] MEDS: MAGNESIUM CHLORIDE 64MG DELAYED REL TAB PO SCH (20:51)
[2020-10-22] MEDS: DICLOFENAC SODIUM 75 MG TABCR PO SCH (20:51)
[2020-10-23] MEDS ORDERED: HEPARIN 100 UNIT/ML 5ML FLUSH FLUSH PRN (00:52)
[2020-10-23] MEDS: D5W AND 1/2NSS + 20MEQ KCL 20 MEQ/1,000 ML BAG IV SCH ×2 (04:46→16:19)
[2020-10-23] MEDS: HYDROmorphone INJ 1 MG/ML SYRINGE IV PRN ×8 (04:48→23:35)
[2020-10-23 05:52] LABS: Hemoglobin 11.5 g/dL (12.0-16.0); Mean Corpuscular Hemoglobin 33.4 pg (25-34); Mean Corpuscular Hgb Conc 33.8 g/dL (32-36); Mean Corpuscular Volume 98.8 fL (80-100); Mean Platelet Volume 9.5 fL (7.4-10.4); Platelet Count 152 K/uL (130-400); RDW Coefficient of Variation 16.3 % (11.5-14.5); RDW Standard Deviation 59.2 fL (36.4-46.3); Red Blood Count 3.44 M/uL (4.2-5.4); White Blood Count 9.14 K/uL (4.8-10.8)
[2020-10-23 06:21] LABS: Albumin Level 2.6 gm/dl (3.4-5.0); BUN Creatinine Ratio 15.6 (10-20); Calcium 8.5 mg/dl (8.5-10.1); Creatinine Clr Calc Pharmacy 173.4 ml/min; Est GFR (African American) 140.2 ml/min; Potassium 3.3 mmol/L (3.5-5.1)
[2020-10-23 06:24] LABS: Albumin Globulin Ratio 0.7 (0.9-2); Bilirubin,Total 1.9 mg/dl (0.2-1); Globulin 3.8 gm/dl (2.5-4.0); Total Protein 6.4 gm/dl (6.4-8.2)
[2020-10-23] MEDS: MIDODRINE HCL 10 MG TAB PO SCH ×3 (06:39→18:05)
[2020-10-23] MEDS: HEPARIN SOD 5,000 UNIT/0.5 ML VIAL SQ SCH ×3 (06:39→22:45)
[2020-10-23] MEDS: dexAMETHasone 4 MG TAB PO SCH ×2 (08:09→08:15)
[2020-10-23] MEDS: FLUDROCORTISONE ACETATE 0.1 MG TAB PO SCH (08:09)
[2020-10-23] MEDS: MoRPHine SULFATE CR 15 MG TABCR PO SCH ×2 (08:09→12:09)
[2020-10-23] MEDS: METOCLOPRAMIDE HCL 5 MG TABLET PO SCH ×4 (08:09→16:20)
[2020-10-23] MEDS: DICLOFENAC SODIUM 75 MG TABCR PO SCH ×3 (08:09→19:54)
[2020-10-23] MEDS: MAGNESIUM CHLORIDE 64MG DELAYED REL TAB PO SCH ×2 (08:10→19:56)
[2020-10-23] MEDS: levETIRAcetam 500 MG TAB PO SCH ×2 (08:10→19:56)
[2020-10-23] MEDS: FOLIC ACID 1 MG TAB PO SCH (08:10)
--- NOTE | 2020-10-23 08:47 | Pain Management Consultation ---
Date of Consultation October 23, 2020 Assessment & Plan (1) Abdominal pain, epigastric: (2) Metastatic cancer: (3) Pancreatic mass: (4) Adenocarcinoma of lung: (5) Hx of breast cancer: (6) Brain metastases: * We again did discuss celiac plexus block as a potential viable treatment option for her intractable midepigastric abdominal pain. Given that her pain is improved today upon assessment potentially related to transition of MS Contin to every 8 hour dosing we will continue to hold on pursuing celiac plexus block. We did discuss celiac plexus block in great detail at today's visit with the patient including the potential risks versus benefits of the procedure. All of her questions were answered. * Patient will continue with MS Contin 15 mg every 8 hours as directed by palliative care * She was encouraged to utilize MSIR for as needed breakthrough pain today to assess efficacy instead of IV hydromorphone and she verbalized understanding. She was encouraged to discuss use of MSIR versus OxyIR pending response further with palliative care team * Will send a prescription for Narcan to the patient's pharmacy for home use. We discussed home use and education of family members and she verbalized understanding. * Pain service will monitor for re-involvement should the patient need considered for celiac plexus block Thank you for allowing us to participate in the care of Mrs. Copeland History of Present Illness Reason for Consultation: Midepigastric abdominal pain Requesting Physician: Abel Stroud DO Attending Physician: Abel Stroud DO History of Present Illness Mrs. Copelnad is a 45-year-old white female who was admitted due to intractable midepigastric abdominal pain. Patient has a past medical history significant for brain metastasis from lung and breast cancer, seizure disorder, adenocarcinoma of the lung, anxiety and recently experienced a bout of acute pancreatitis and was found to have pancreatic mass at the head of the pancreas consistent with metastatic disease, but is awaiting pathology. The patient had an ERCP with stent placement on 10/17/2020. The patient was discharged to home on 10/21/2020 and returned to the hospital on 10/22/2020 due to the severity of her midepigastric abdominal pain. The patient reports that her pain is mild at this time in the midepigastric region at a 3-4/10. She believes that adjustment of MS Contin to every 8 hours has been effective at improving her pain control. She has also been utilizing IV hydromorphone and MSIR for breakthrough pain with efficacy. She was previous utilizing OxyIR at home which she felt was potentially more effective at controlling her abdominal pain. Patient denies any radiation of the pain at this time. She denies any nausea, vomiting, constipation or abdominal fullness. She has not had a bowel movement since admission yesterday. She remains n.p.o. Patient has no further constitutional complaints at this time. Plan of care discussed with Dr. Lulu Hand. Pain Assessment Full Body Front + Back: 1. Midepigastric abdomen Pain scale - at its best (0-10): 3 Pain scale - at its worst (0-10): 8 Allergies Allergy/AdvReac Type Severity Reaction Status Date / Time Penicillins Allergy Intermediate Swelling Verified 10/22/20 10:29 Home Medications Medication Instructions Recorded Confirmed Type folic acid 1 mg PO QAM 07/09/20 10/22/20 History ondansetron 8 mg PO Q8H PRN 07/09/20 10/22/20 History prochlorperazine maleate 10 mg PO Q6H PRN 07/09/20 10/22/20 History morphine 15 mg PO Q12H #60 tab 07/16/20 10/17/20 Rx polyethylene glycol 3350 [Miralax] 17 g PO QID PRN 07/23/20 10/22/20 History sennosides-docusate sodium 1 tab PO BID PRN 07/23/20 10/22/20 History [Senokot-S] docusate sodium 100 mg PO BID PRN 07/29/20 10/22/20 History levetiracetam 1,500 mg PO BID 08/16/20 10/22/20 History magnesium chloride [Mag 64] 64 mg PO BID #60 tab 09/02/20 10/22/20 Rx metoclopramide HCl 5 mg PO AC 09/04/20 10/22/20 History diclofenac sodium 75 mg PO BID 10/17/20 10/22/20 History acetaminophen 325 mg PO Q6H PRN #90 tab 10/21/20 10/22/20 Rx dexamethasone 4 mg PO BID@0900,1530 #60 tab 10/21/20 10/22/20 Rx fludrocortisone 0.1 mg PO QAM #30 tab 10/21/20 10/22/20 Rx midodrine 10 mg PO TID@0700,1300,1800 #90 tab 10/21/20 10/22/20 Rx morphine 15 mg PO Q4H PRN #90 tab 10/21/20 10/22/20 Rx morphine 15 mg PO Q8H #90 tab 10/21/20 10/22/20 Rx Pain History Pain Intensity Pain scale - at its best (0-10): 3 Pain scale - at its worst (0-10): 8 Patient History Medical History Abdominal pain Adenocarcinoma of lung w/ extensive lymphadenopathy in the neck, chest, abdomen; brain and bilateral adrenal metastases Brain metastases BRCA gene positive Hx of breast cancer Palliative care encounter Seizure disorder Due to tumor edematous burden Surgical History H/O bilateral mastectomy H/O craniotomy 05/2020-right frontal craniotomy for brain tumor resection H/O: hysterectomy History of cholecystectomy Family History Aunt Breast cancer Social History Smoking Status: Former smoker Tobacco Type: Cigarettes packs per day: 1; Years Smoked: 23; Second Hand Exposure: No; Hx Alcohol Use: No Hx Substance Use: No Preferred Language: Mozambican Communication Ability: Effective Oven Builder Required: No Beliefs That Will Affect Care: None marital status: Current Living Situation: Spouse How many Children do You have: 2 Feels Safe at Home: Yes Safety Concerns: Feels Safe At This Time Assistive Devices: None Physical Exam Physical Exam: General: Patient was sleeping upon entering the room. She was awakened and appeared to be in no acute distress. Speech and thought process a ppropriate. Mood and affect appropriate. Cognition intact. Head: Normocephalic and atraumatic. ENT: No evidence of nasal or oral mucosal lesions. Mucous membranes are moist. Eyes: Pupils equal round reactive to light. Neck: Supple without adenopathy and full range of motion. Chest: Nontender to palpation of the costosternal junction. Nontender with AP/lateral compression of the chest wall. Abdomen: Soft and nondistended. No organomegaly. Bowel sounds active. Minimally tender in the midepigastric region to palpation. No rebound or guarding. No abdominal fullness or palpable mass. Lower extremities: No evidence of edema. Sensation intact. Strength testing 5/5 with plantar and dorsiflexion. Neurologic: Cranial nerves grossly intact. Ambulatory function not witnessed. Results ([facility]) Diagnostic Review CT: non enhanced and reports reviewed CT Findings: [facility], [id number] CT Scan Report Patient: YNES COPELANDAdmit Date: 10/22/20#: [id number]: [id number] [facility] ID:[id number]: Date: 1975City Zip: [place] [address]Rxq: 45Location: EDSex: FRoom/Bed:Att Phy:Diagnosis: WAS JUST HERE FOR SURGERY, IN ALOT OF PAINPri Phy: Jasiel Fritz, DOService Date: 10/22/20Fa Phy:Interpreting Phy: Axel Hook MDAdmit Phy: Ordering Phy: Loy White D.O. cc: ~ CT abd pelvis IV con only CLINICAL HISTORY: abd pain HISTORY OF RECENT PANCREATIC STENT COMPARISON STUDY: Noncontrast CT scan dated 10/16/2020, MRCP dated 10/17/2020 TECHNIQUE: The patient was scanned in a dynamic helical fashion during intravenous administration of 95 cc of Optiray 320 A dose lowering technique was utilized adhering to the principles of ALARA. CT DOSE: 440.14 mGy.cm FINDINGS: Lower chest: There are bilateral breast implants. There is mild thickening of the minor fissure. There is a stable 3 mm left lower lobe pulmonary nodule. In addition there are tiny centrilobular nodules. Liver: There is pneumobilia, consistent with a patent biliary enteric stent. No focal hepatic masses are visualized. The hepatic and portal veins appear patent. Gallbladder: Surgically absent Spleen: Normal in size and attenuation. Pancreas: There is decreased peripancreatic infiltration. There is persistent mild pancreatic ductal dilatation with a distal common duct cut off sign. Adrenal glands: There are persistent bilateral adrenal gland nodules. Kidneys: There is symmetric renal cortical enhancement. The kidneys are normal in size without hydronephrosis. Bowel: There are no transition zones indicate bowel obstruction. The appendix appears normal. There is no evidence of acute diverticulitis. Peritoneum: There is no intraperitoneal free air or abdominal ascites. Vasculature: The abdominal aorta is normal in course and caliber. Adenopathy: There is persistent mesenteric and mild retroperitoneal lymphadenopathy. There is an enlarged susanna hepatis lymph node. Pelvic viscera: The uterus is surgically absent. There is mild focal wall thickening involving the right posterior bladder. Skeletal structures: No destructive osseous lesions are seen. IMPRESSION: 1. Interval placement of a biliary enteric stent with secondary pneumobilia 2. Decreasing peripancreatic inflammation 3. Persistent mild dilatation the pancreatic duct with a distal pancreatic duct cut off sign 4. Tiny lower lobe centrilobular pulmonary nodules 5. Persistent mesenteric, susanna hepatis, and retroperitoneal lymphadenopathy 6. Mild focal wall thickening involving the right posterior bladder 7. Stable adrenal masses 8. No evidence of bowel obstruction. No evidence of free air 5. Normal appendix. No evidence of acute diverticulitis. ACT 112: Negative or not required by law. Electronically signed by: Axel Hook M.D. 10/22/2020 12:00 PM Dictated: 10/22/20 1146Transcribed: 10/22/20 1146 Previous Records Review Previous Records: personally reviewed by
[2020-10-23] MEDS: MoRPHine SULFATE IR 15 MG TAB (IMMEDIATE RELEASE) PO PRN (08:57)
--- NOTE | 2020-10-23 09:35 | Discharge Summary ---
Date of Service October 23, 2020 Admission HPI Per Admitting Provider 45-year-old female with a past medical history of orthostatic hypotension brain metastases from lung and breast cancer, seizure disorder, BRCA gene positive, acute pancreatitis, adenocarcinoma of lung, anxiety, he was discharged yesterday after she was treated with a bout of acute pancreatitis. She wanted to go home yesterday on the pain regimen reestablished orally, but she could not tolerate the regimen when she got home. She came into the ER complaining of abdominal pain and demanding Dilaudid. On her previous admission was she was discharged yesterday from she had an ERCP with a stent placed, her LFTs and lipase were down and she was discharged today she came in her lipase was up and her LFTs were up as well. I will bring her in under observation consult pain management Dr. Lulu Hand for input and reconsult palliative care for hospice planning. Admission Exam Per Admitting Provider Physical Exam Gen-AAO x 3, moderate pain, Afebrile Head-NCAT, EOMI, PERRLA, Anicteric Sclera, No Posterior Pharyngeal Erythema Neck-Supple, No JVD, No Thyromegaly, No Masses, No LAD, No Bruits Lungs-Clear to Auscultation Bilaterally, No Rales, No Rhonchi, No Wheezing, No Crepitus Chest-tachycardic, no S4, +S1, +S2, No S3, No Murmurs, No Rubs, No Gallops, No Ectopy, positive Chemo-Port left upper chest Abdomen-Soft, Bowel Sounds Present, tender, Non Distended, No Hepatomegaly, No Splenomegaly, No Palpable Masses, No Rebound, No Rigidity, No Guarding Musculoskeletal-Full Range of Motion Bilaterally, No CVAT Extremities-No Cyanosis, No Clubbing, No Edema Nuero-Cranial Nerves II-XII grossly intact, Motor WNL, DTRs WNL, Strength WNL, Non Focal Psych-anxious Principal Diagnosis (1) Abdominal pain: (2) Pancreatic mass: (3) Elevated LFTs: (4) Anxiety: (5) Adenocarcinoma of lung: (6) Orthostatic lightheadedness: (7) BRCA gene positive: (8) Hx of breast cancer: (9) Seizure disorder: (10) Brain metastases: (11) DVT prophylaxis: Discharge Exam see below Discharge Data Allergies Allergy/AdvReac Type Severity Reaction Status Date / Time Penicillins Allergy Intermediate Swelling Verified 10/22/20 10:29 Consultations 10/22/20 13:05 ED Decision to Admit Stat 10/22/20 16:10 Consult Pain Management Routine Consult Palliative Care Routine Ordered Studies 10/22/20 10:25 CT abd pelvis IV con only Stat Hospital Course (1) Abdominal pain: (2) Pancreatic mass: (3) Elevated LFTs: (4) Anxiety: (5) Adenocarcinoma of lung: (6) Orthostatic lightheadedness: (7) BRCA gene positive: (8) Hx of breast cancer: (9) Seizure disorder: (10) Brain metastases: (11) DVT prophylaxis: Patient will be on a regimen of MSIR 15 mg every 4 for breakthrough pain, MS Contin 15 mg every 8, Dilaudid 1 mg IV every 2H, await palliative care eval and pain management offered pelvic block and sent Narcan script to Rx, [place] home later today if able. ROS-No Headache, No Visual Changes, No Nausea, No Vomiting, No Fever, No Chills, No Neck Pain or Stiffness, No Chest Pain, No Palpitations, No SOB, No GREWAL, No Cough, No Sputum, No Wheezing, + Abdominal Pain, No Diarrhea, No Hematemesis, No Hemoptysis, No Unexpected Weight Loss, No Flank pain, No Melena, No Hematochezia, No Frequency, No Urgency, No Burning, No Hematuria, No Rashes, No Diaphoresis. Appetite is Normal Physical Exam Gen-AAO x 3, NAD, Afebrile Head-NCAT, EOMI, PERRLA, Anicteric Sclera, No Posterior Pharyngeal Erythema Neck-Supple, No JVD, No Thyromegaly, No Masses, No LAD, No Bruits Lungs-Clear to Auscultation Bilaterally, No Rales, No Rhonchi, No Wheezing, No Crepitus Chest-No S4, +S1, +S2, No S3, No Murmurs, No Rubs, No Gallops, No Ectopy, +Port Abdomen-Soft, Bowel Sounds Present, Tender, Non Distended, No Hepatomegaly, No Splenomegaly, No Palpable Masses, No Rebound, No Rigidity, No Guarding Musculoskeletal-Full Range of Motion Bilaterally, No CVAT Extremities-No Cyanosis, No Clubbing, No Edema Nuero-Cranial Nerves II-XII grossly intact, Motor WNL, DTRs WNL, Strength WNL, Non Focal Psych-Normal Mood Total Time Total Time Spent Total Time Spent (In Minutes): 45 Mins Total Time Includes: Examination of the Patient, Discharge Planning, Medication Reconciliation and Communication With Other Providers Discharge Plan Discharge Items Patient Disposition: Home - Self-Care Reason For Visit: PAIN CONTROL Discharge Diagnosis: (1) Abdominal pain: (2) Pancreatic mass: (3) Elevated LFTs: (4) Anxiety: (5) Adenocarcinoma of lung: (6) Orthostatic lightheadedness: (7) BRCA gene positive: (8) Hx of breast cancer: (9) Seizure disorder: (10) Brain metastases: (11) DVT prophylaxis: Condition on Discharge: Fair Health Concerns: Pin control Activity: Resume your previous activity Lifting: None Bathing: No limitations Sexual Activity: When tolerated Exercise/Sports: None Driving/Machine Use: No limitations Weightbearing: Full weightbearing Non-emergency contact: Primary Care Provider, Oncologist and Pain Management Call non-emergency contact if: you have any medication questions and your symptoms worsen Follow-up/Referrals: Jasiel Fritz DO [Primary Care Provider] - Diet: Regular and Other - See Diet Comment Diet Comment: As tolerated Addtl Attending Provider Instructions: You my take 1-3 tabs of OXY IR or 1-3 tabs of MS IR for breakthrough pain, but not all at once, up to 3 in hourly intervals Make appointment with pain management outpatient Pending Studies at Discharge: No Stand-Alone Forms: My [facility], Opioid Pain Management, Smoking Cessation Medications and DC Order Prescriptions: New prednisone 10 mg tablet 10 mg PO DAILY Qty: 42 RF: 0 Continued naloxone 4 mg/actuation spray,non-aerosol 1 spray intranasal Q3M PRN (Reason: opioid overdose) Qty: 2 RF: 0 folic acid 1 mg Tablet 1 mg PO QAM RF: 0 ondansetron 8 mg Tablet,Disintegrating 8 mg PO Q8H PRN (Reason: Nausea) RF: 0 prochlorperazine maleate 10 mg Tablet 10 mg PO Q6H PRN (Reason: Nausea) RF: 0 polyethylene glycol 3350 [Miralax] 17 gram powder in packet 17 g PO QID PRN (Reason: Constipation) RF: 0 sennosides-docusate sodium [Senokot-S] 8.6-50 mg tablet 1 tab PO BID PRN (Reason: Constipation) RF: 0 docusate sodium 100 mg capsule 100 mg PO BID PRN (Reason: Constipation) RF: 0 diclofenac sodium 75 mg tablet,delayed release (DR/EC) 75 mg PO BID RF: 0 acetaminophen 325 mg Tablet 325 mg PO Q6H PRN (Reason: fever or pain) Qty: 90 RF: 0 morphine 15 mg Tablet Extended Release 15 mg PO Q8H Qty: 90 RF: 0 midodrine 10 mg Tablet 10 mg PO TID@0700,1300,1800 Qty: 90 RF: 0 morphine 15 mg Tablet 15 mg PO Q4H PRN (Reason: pain) Qty: 90 RF: 0 fludrocortisone 0.1 mg Tablet 0.1 mg PO QAM Qty: 30 RF: 0 levetiracetam 500 mg tablet 1,500 mg PO BID RF: 0 magnesium chloride [Mag 64] 64 mg Tablet,Delayed Release (Dr/Ec) 64 mg PO BID Qty: 60 RF: 0 metoclopramide HCl 5 mg tablet 5 mg PO AC RF: 0 Discontinued dexamethasone 4 mg tablet 4 mg PO BID@0900,1530 Qty: 60 RF: 0 Discharge Orders: Discharge Order (Routine); Ordered 10/23/20 Ordered By: Abel Stroud Admission Data Admit Date/Time: 10/22/20 13:12 Attending Provider: Abel Stroud Admit Provider: Abel Stroud Primary Care Provider: Jasiel Fritz Other Providers: Abel Stroud ; Lulu Hand ; Shelly Walters
--- NOTE | 2020-10-23 09:55 | Hospitalist Progress Note ---
Date of Service October 23, 2020 Assessment & Plan (1) Abdominal pain: (2) Pancreatic mass: (3) Elevated LFTs: (4) Anxiety: (5) Adenocarcinoma of lung: (6) Orthostatic lightheadedness: (7) BRCA gene positive: (8) Hx of breast cancer: (9) Seizure disorder: (10) Brain metastases: (11) DVT prophylaxis: Lipase rising, change to admission for Acute on Chonic Pancreatitis Patient will be on a regimen of MSIR 15 mg every 4 for breakthrough pain, MS Contin 15 mg every 8, Dilaudid 1 mg IV every 2H, await palliative care eval and pain management offered pelvic block and sent Narcan script to Rx, DC home when able, NPO ROS-No Headache, No Visual Changes, No Nausea, No Vomiting, No Fever, No Chills, No Neck Pain or Stiffness, No Chest Pain, No Palpitations, No SOB, No GREWAL, No Cough, No Sputum, No Wheezing, + Abdominal Pain, No Diarrhea, No Hematemesis, No Hemoptysis, No Unexpected Weight Loss, No Flank pain, No Melena, No Hematochezia, No Frequency, No Urgency, No Burning, No Hematuria, No Rashes, No Diaphoresis. Appetite is Normal Physical Exam Gen-AAO x 3, NAD, Afebrile Head-NCAT, EOMI, PERRLA, Anicteric Sclera, No Posterior Pharyngeal Erythema Neck-Supple, No JVD, No Thyromegaly, No Masses, No LAD, No Bruits Lungs-Clear to Auscultation Bilaterally, No Rales, No Rhonchi, No Wheezing, No Crepitus Chest-No S4, +S1, +S2, No S3, No Murmurs, No Rubs, No Gallops, No Ectopy, +Port Abdomen-Soft, Bowel Sounds Present, Tender, Non Distended, No Hepatomegaly, No Splenomegaly, No Palpable Masses, No Rebound, No Rigidity, No Guarding Musculoskeletal-Full Range of Motion Bilaterally, No CVAT Extremities-No Cyanosis, No Clubbing, No Edema Nuero-Cranial Nerves II-XII grossly intact, Motor WNL, DTRs WNL, Strength WNL, Non Focal Psych-Normal Mood Admission and Anticipated Discharge Date Admission Date: October 22, 2020 Results & Data Results & Data ([facility]) Vital Signs (Past 12 Hours) Vital Signs Temp Pulse Resp BP Pulse Ox 10/23/20 07:41 36.5 C 79 18 93/61 L 91 10/22/20 22:32 37.4 C 101 H 16 96/62 L 91
[2020-10-23] MEDS: predniSONE 20 MG TAB PO SCH (11:17)
[2020-10-23] MEDS: POTASSIUM CHLORIDE 20 MEQ/15 ML UDC PO SCH ×3 (11:17→22:43)
[2020-10-23] MEDS ORDERED: DOCUSATE SODIUM/SENNA 50/8.6MG TAB PO PRN (11:18)
--- NOTE | 2020-10-23 13:31 | Palliative Care Consultation ---
Date of Consultation October 23, 2020 Assessment & Plan (1) Palliative care encounter: Josi is tearful and frustrated with her pain. She very much wants to be at home with her family. She has said that being with her family is the most important thing to her and that she has things that she wants to do with them before she dies. She knows that she is going to but says that she would like to have a year to travel to [place] with her and take her grandchildren to [place]. She has two grandchildren ages 2 and 4 and her face brightens considerably when she talks about them. As with prior hospitalization, she is clear that she does not want to discuss hospice and that her goal is to receive any treatment possible to prolong her life to spend time with her family. (2) Abdominal pain, epigastric: Given oral morphine equivalent of prn dosing, will increase morphine ER. At this time will increase to 60mg BID and monitor. As she feels that oxycodone was more effective will d/c morphine IR and order oxycodone IR. She has exp ressed concern about becoming addicted to pain medications. We talked extensively about using medication for her cancer pain and closely monitoring her medications and pain relief. 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 (3) Anxiety: She has history of anxiety which is exacerbated by her current medical problems. With hypotension and opioid dosing, would hold off on benzodiazepine but she may benefit from duloxetine for her anxiety and chronic pain. (4) Constipation: She has had poor po intake but no bm in one week. Will increase senna to two tabs bid. (5) Adenocarcinoma of lung: (6) Pancreatic mass: History of Present Illness Reason for Consultation: goals of care Requesting Physician: Dr. Stroud Attending Physician: Abel Stroud, History of Present Illness 45 yo lady with history of lung cancer metastatic to brain who has recently been diagnosed with pancreatic head mass after presenting with pancreatitis. She had an ERCP with stent on 10/17 and had been discharged home but was readmitted with uncontrolled pain. She complains of severe abdominal pain across her upper abdomen that feels like a "squeezing" pain. It is variable and often increases suddenly. It is not related to eating or position. She has been on MS contin which was increased to 15mg TID last week. She had originally taken oxycodone prn at home but was rotated to morphine IR during her hospital stay. She tells me that while she only had a few doses of oxycodone, she feels like it was more helpful for her pain. Since her admission last night, she has had 30mg morphine IR and 6mg IV hydromorphone in addition to her MS contin for a total OME of 195mg. She had a period during the night when the pain was well controlled but now rates the pain as an 8/10. She did have hydromorphone one hour ago. She has been seen and evaluated by pain management in consideration of a celiac plexus block. Allergies Allergy/AdvReac Type Severity Reaction Status Date / Time Penicillins Allergy Intermediate Swelling Verified 10/22/20 10:29 Home Medications Medication Instructions Recorded Confirmed Type folic acid 1 mg PO QAM 07/09/20 10/22/20 History ondansetron 8 mg PO Q8H PRN 07/09/20 10/22/20 History prochlorperazine maleate 10 mg PO Q6H PRN 07/09/20 10/22/20 History morphine 15 mg PO Q12H #60 tab 07/16/20 10/17/20 Rx polyethylene glycol 3350 [Miralax] 17 g PO QID PRN 07/23/20 10/22/20 History sennosides-docusate sodium 1 tab PO BID PRN 07/23/20 10/22/20 History [Senokot-S] docusate sodium 100 mg PO BID PRN 07/29/20 10/22/20 History levetiracetam 1,500 mg PO BID 08/16/20 10/22/20 History magnesium chloride [Mag 64] 64 mg PO BID #60 tab 09/02/20 10/22/20 Rx metoclopramide HCl 5 mg PO AC 09/04/20 10/22/20 History diclofenac sodium 75 mg PO BID 10/17/20 10/22/20 History acetaminophen 325 mg PO Q6H PRN #90 tab 10/21/20 10/22/20 Rx dexamethasone 4 mg PO BID@0900,1530 #60 tab 05/30/21 05/31/21 Rx fludrocortisone 0.1 mg PO QAM #30 tab 10/21/20 10/22/20 Rx midodrine 10 mg PO TID@0700,1300,1800 #90 tab 10/21/20 10/22/20 Rx morphine 15 mg PO Q4H PRN #90 tab 10/21/20 10/22/20 Rx morphine 15 mg PO Q8H #90 tab 10/21/20 10/22/20 Rx naloxone 4 mg/actuation nasal spray 1 spray INTRANASAL Q3M PRN #2 ea 10/23/20 Rx prednisone 10 mg PO DAILY #42 tab 10/23/20 Rx Patient History Medical History Abdominal pain Adenocarcinoma of lung w/ extensive lymphadenopathy in the neck, chest, abdomen; brain and bilateral adrenal metastases Brain metastases BRCA gene positive Hx of breast cancer Palliative care encounter Seizure disorder Due to tumor edematous burden Surgical History H/O bilateral mastectomy H/O craniotomy 05/2020-right frontal craniotomy for brain tumor resection H/O: hysterectomy History of cholecystectomy Family History Aunt Breast cancer Social History Smoking Status: Former smoker Tobacco Type: Cigarettes packs per day: 1; Years Smoked: 23; Second Hand Exposure: No; Hx Alcohol Use: No Hx Substance Use: No Preferred Language: Albanian Communication Ability: Effective Gyroscope Technician Required: No Beliefs That Will Affect Care: None marital status: Current Living Situation: Spouse How many Children do You have: 2 Feels Safe at Home: Yes Safety Concerns: Feels Safe At This Time Assistive Devices: None Review of Systems Review of Systems: [place] Symptom Assessment Scale Pain 3/3 Dyspnea 0/3 Anxiety 2/3 Fatigue 2/3 Nausea 0/3 Drowsiness 1/3 Palliative Performance Score 50% Physical Exam Constitutional: tearful, uncomfortable Respiratory: normal respiratory effort; no labored breathing productive cough Gastrointestinal (Abdomen): Percussion/Palpation: + abdomen tender (epigastrium) and abdomen soft LBM 5/25 Skin: warm and dry Psychiatric: Affect: + tearful affect Mood: + anxious mood Results & Data ([facility]) Vital Signs (Past 12 Hours) Vital Signs Temp Pulse Resp BP Pulse Ox 10/23/20 07:41 97.7 F 79 18 93/61 L 91 PG Care Time/CCT Total # of Minutes Spent Total Time Spent with Patient: Total time spent is greater than 50% in coordination of care (as documented) at patient's floor/unit and/or counseling patient: total time spent 60 minutes with more than 50% of time spent on goals of care, symptom management Coding Level of Care Code 26812 Inpt Consult Level 3 Diagnoses Palliative care encounter Z51.5 Abdominal pain, epigastric R10.13 Anxiety F41.9 Constipation K59.00 Adenocarcinoma of lung C34.90 Pancreatic mass K86.89
[2020-10-23] MEDS: oxyCODONE HCL IR 5 MG TAB (IMMEDIATE RELEASE) PO PRN ×2 (18:12→22:42)
[2020-10-24] MEDS: MoRPHine SULFATE CR 15 MG TABCR PO SCH ×3 (00:37→23:49)
[2020-10-24] MEDS: HYDROmorphone INJ 1 MG/ML SYRINGE IV PRN ×8 (03:20→21:32)
[2020-10-24] MEDS: D5W AND 1/2NSS + 20MEQ KCL 20 MEQ/1,000 ML BAG IV SCH ×2 (03:21→14:46)
[2020-10-24] MEDS: HEPARIN SOD 5,000 UNIT/0.5 ML VIAL SQ SCH ×3 (05:43→21:34)
[2020-10-24 06:32] LABS: Hematocrit (blood only) 31.9 % (37-47); Hemoglobin 10.9 g/dL (12.0-16.0); Mean Corpuscular Hemoglobin 33.7 pg (25-34); Mean Corpuscular Hgb Conc 34.2 g/dL (32-36); Mean Corpuscular Volume 98.8 fL (80-100); Platelet Count 187 K/uL (130-400); RDW Coefficient of Variation 15.2 % (11.5-14.5); RDW Standard Deviation 54.9 fL (36.4-46.3); Red Blood Count 3.23 M/uL (4.2-5.4); White Blood Count 7.84 K/uL (4.8-10.8)
[2020-10-24] MEDS: oxyCODONE HCL IR 5 MG TAB (IMMEDIATE RELEASE) PO PRN ×2 (06:37→17:32)
[2020-10-24] MEDS: MIDODRINE HCL 10 MG TAB PO SCH ×3 (06:37→17:25)
[2020-10-24 07:07] LABS: Albumin Level 2.6 gm/dl (3.4-5.0); BUN Creatinine Ratio 10.1 (10-20); Calcium 8.7 mg/dl (8.5-10.1); Creatinine Clr Calc Pharmacy 204.6 ml/min; Est GFR (Non-African American) 127.7 ml/min; Potassium 3.5 mmol/L (3.5-5.1)
[2020-10-24 07:09] LABS: Albumin Globulin Ratio 0.6 (0.9-2); Bilirubin,Total 1.5 mg/dl (0.2-1); Globulin 4.2 gm/dl (2.5-4.0); Total Protein 6.8 gm/dl (6.4-8.2)
[2020-10-24] MEDS: METOCLOPRAMIDE HCL 5 MG TABLET PO SCH ×3 (07:43→16:41)
[2020-10-24] MEDS: DICLOFENAC SODIUM 75 MG TABCR PO SCH ×2 (09:08→20:02)
[2020-10-24] MEDS: FLUDROCORTISONE ACETATE 0.1 MG TAB PO SCH (09:09)
[2020-10-24] MEDS: levETIRAcetam 500 MG TAB PO SCH ×2 (09:09→20:04)
[2020-10-24] MEDS: FOLIC ACID 1 MG TAB PO SCH (09:09)
[2020-10-24] MEDS: POTASSIUM CHLORIDE 20 MEQ/15 ML UDC PO SCH ×4 (09:10→20:04)
[2020-10-24] MEDS: predniSONE 20 MG TAB PO SCH (09:10)
[2020-10-24] MEDS: MAGNESIUM CHLORIDE 64MG DELAYED REL TAB PO SCH ×2 (09:10→20:03)
--- NOTE | 2020-10-24 12:20 | Palliative Care Progress Note ---
Date of Service October 24, 2020 Assessment & Plan (1) Palliative care encounter: Josi is tearful and frustrated with her pain. She is really focused on the biopsy that has been obtained. Results to be discussed with hospitalist. She very much wants to be at home with her family. She has said that being with her family is the most important thing to her and that she has things that she wants to do with them before she dies. She knows that she is going to but says that she would like to have a year to travel to [place] with her and take her grandchildren to [place]. She has two grandchildren ages 2 and 4 and her face brightens considerably when she talks about them. As with prior hospitalization, she is clear that she does not want to discuss hospice and that her goal is to receive any treatment possible to prolong her life to spend time with her family. (2) Abdominal pain, epigastric: Tolerating Oxy ER 60 mg BID. Has utilized THREE doses of Oxycodone IR 15 mg Q4 PRN. Also has utilized NINE doses of Dilaudid IV Q1 PRN. She has expressed concern about becoming addicted to pain medications. We talked extensively about using medication for her cancer pain and closely monitoring her medications and pain relief. I talked with her again about the possibility of having a celiac plexus block, which she was adament that she wanted to hold off doing for now. I talked with her about doing a Dilaudid SPECTROGRAPHER for now due to her IV Diluadid use, but she declined at this time. She does agree that some of this is emotional pain. I did touch base with pain management and they advised they would be available for rediscussion about celiac plexus block should she wish to pursue. (3) Anxiety: She has history of anxiety which is exacerbated by her current medical problems. With hypotension and opioid dosing, would hold off on benzodiazepine but she may benefit from duloxetine for her anxiety and chronic pain. (4) Constipation: She has had poor po intake but no bm in one week. Pt tolerating Senna. (5) Adenocarcinoma of lung: (6) Pancreatic mass: Admission and Anticipated Discharge Date Admission Date: October 23, 2020 Subjective Pt resting in her bed. Reports pain to be 10/10 at rest. Talking with her daughter on the phone. SEe A/P for further details. Review of Systems Review of Systems: [place] Symptom Assessment Scale Pain 3/3 Dyspnea 0/3 Anxiety 2/3 Fatigue 2/3 Nausea 0/3 Drowsiness 1/3 Palliative Performance Score 50% Physical Exam Constitutional: well developed Respiratory: normal respiratory effort; no labored breathing Gastrointestinal (Abdomen): Percussion/Palpation: + abdomen tender (epigastrium) and abdomen soft Psychiatric: Affect: + tearful affect Mood: + anxious mood Results & Data ([facility]) Vital Signs (Past 12 Hours) Vital Signs Temp Pulse Resp BP Pulse Ox 10/24/20 07:29 36.7 C 95 H 16 102/69 96 PG Care Time/CCT Total # of Minutes Spent Total Time Spent with Patient: Total time spent is greater than 50% in coordination of care (as documented) at patient's floor/unit and/or counseling patient: 45 minutes with > 50% of that time spent assessing the patient, discussing goals of care, symptom management needs and collaborating with IDT Coding Level of Care Code 45532 Prolonged Care (int'l) Diagnoses Palliative care encounter Z51.5 Abdominal pain, epigastric R10.13 Anxiety F41.9 Constipation K59.00 Adenocarcinoma of lung C34.90 Pancreatic mass K86.89 Time Spent (min) 45
[2020-10-24] MEDS: DOCUSATE SODIUM/SENNA 50/8.6MG TAB PO SCH (12:35)
--- NOTE | 2020-10-24 19:44 | Hospitalist Progress Note ---
Date of Service October 24, 2020 Assessment & Plan (1) Abdominal pain: (2) Pancreatic mass: (3) Elevated LFTs: (4) Anxiety: (5) Adenocarcinoma of lung: (6) Orthostatic lightheadedness: (7) BRCA gene positive: (8) Hx of breast cancer: (9) Seizure disorder: (10) Brain metastases: (11) DVT prophylaxis: Lipase rising, change to admission for Acute on Chonic Pancreatitis Large BM this morning, feels a little better, Pain regimen better, Lipase normal, Start Full liq, Biopsy of pancreas neg malignancy Patient will be on a regimen of MSIR 15 mg every 4 for breakthrough pain, MS Contin 30 mg every 12, Dilaudid 1 mg IV every 2H, palliative care and pain management on case, offered pelvic block and sent Narcan script to Rx, DC home when able, Liquids, Monitor labs, hopefully DC in AM, no more narcotic scripts, She has plenty ROS-No Headache, No Visual Changes, No Nausea, No Vomiting, No Fever, No Chills, No Neck Pain or Stiffness, No Chest Pain, No Palpitations, No SOB, No GREWAL, No Cough, No Sputum, No Wheezing, + Abdominal Pain, No Diarrhea, No Hematemesis, No Hemoptysis, No Unexpected Weight Loss, No Flank pain, No Melena, No Hematochezia, No Frequency, No Urgency, No Burning, No Hematuria, No Rashes, No Diaphoresis. Appetite is Normal, +Large BM Physical Exam Gen-AAO x 3, NAD, Afebrile Head-NCAT, EOMI, PERRLA, Anicteric Sclera, No Posterior Pharyngeal Erythema Neck-Supple, No JVD, No Thyromegaly, No Masses, No LAD, No Bruits Lungs-Clear to Auscultation Bilaterally, No Rales, No Rhonchi, No Wheezing, No Crepitus Chest-No S4, +S1, +S2, No S3, No Murmurs, No Rubs, No Gallops, No Ectopy, +Port Abdomen-Soft, Bowel Sounds Present, Tender, Non Distended, No Hepatomegaly, No Splenomegaly, No Palpable Masses, No Rebound, No Rigidity, No Guarding Musculoskeletal-Full Range of Motion Bilaterally, No CVAT Extremities-No Cyanosis, No Clubbing, No Edema Nuero-Cranial Nerves II-XII grossly intact, Motor WNL, DTRs WNL, Strength WNL, Non Focal Psych-Normal Mood Admission and Anticipated Discharge Date Admission Date: October 23, 2020 Results & Data Results & Data ([facility]) Vital Signs (Past 12 Hours) Vital Signs Temp Pulse Pulse Resp BP Pulse Ox 10/24/20 17:34 70 113/73 10/24/20 15:08 36.7 C 71 19 93/63 L 95 10/24/20 12:40 79 110/73
[2020-10-25] MEDS: oxyCODONE HCL IR 5 MG TAB (IMMEDIATE RELEASE) PO PRN ×5 (01:54→21:18)
[2020-10-25] MEDS: D5W AND 1/2NSS + 20MEQ KCL 20 MEQ/1,000 ML BAG IV SCH ×2 (01:54→13:21)
[2020-10-25] MEDS: HYDROmorphone INJ 1 MG/ML SYRINGE IV PRN ×3 (02:37→08:12)
[2020-10-25] MEDS: HEPARIN SOD 5,000 UNIT/0.5 ML VIAL SQ SCH ×3 (05:48→21:21)
[2020-10-25] MEDS: MIDODRINE HCL 10 MG TAB PO SCH ×3 (05:49→17:36)
[2020-10-25 06:08] LABS: Hematocrit (blood only) 31.6 % (37-47); Hemoglobin 10.7 g/dL (12.0-16.0); Mean Corpuscular Hemoglobin 33.8 pg (25-34); Mean Corpuscular Hgb Conc 33.9 g/dL (32-36); Mean Corpuscular Volume 99.7 fL (80-100); Mean Platelet Volume 9.6 fL (7.4-10.4); Platelet Count 186 K/uL (130-400); RDW Coefficient of Variation 15.2 % (11.5-14.5); RDW Standard Deviation 56.2 fL (36.4-46.3); Red Blood Count 3.17 M/uL (4.2-5.4); White Blood Count 7.42 K/uL (4.8-10.8)
[2020-10-25 06:38] LABS: Albumin Level 2.6 gm/dl (3.4-5.0); BUN Creatinine Ratio 9.8 (10-20); Calcium 9.1 mg/dl (8.5-10.1); Est GFR (African American) 149.3 ml/min; Est GFR (Non-African American) 128.8 ml/min; Potassium 3.6 mmol/L (3.5-5.1)
[2020-10-25 06:42] LABS: Albumin Globulin Ratio 0.6 (0.9-2); Total Protein 6.6 gm/dl (6.4-8.2)
[2020-10-25] MEDS: MAGNESIUM CHLORIDE 64MG DELAYED REL TAB PO SCH ×2 (08:13→21:20)
[2020-10-25] MEDS: FLUDROCORTISONE ACETATE 0.1 MG TAB PO SCH (08:13)
[2020-10-25] MEDS: METOCLOPRAMIDE HCL 5 MG TABLET PO SCH ×4 (08:13→16:05)
[2020-10-25] MEDS: DOCUSATE SODIUM/SENNA 50/8.6MG TAB PO SCH (08:13)
[2020-10-25] MEDS: POTASSIUM CHLORIDE 20 MEQ/15 ML UDC PO SCH ×4 (08:13→21:19)
[2020-10-25] MEDS: predniSONE 20 MG TAB PO SCH (08:13)
[2020-10-25] MEDS: FOLIC ACID 1 MG TAB PO SCH (08:13)
[2020-10-25] MEDS: levETIRAcetam 500 MG TAB PO SCH ×2 (08:13→21:19)
[2020-10-25] MEDS: DICLOFENAC SODIUM 75 MG TABCR PO SCH ×2 (08:16→21:18)
--- NOTE | 2020-10-25 11:05 | Discharge Summary ---
Date of Service October 25, 2020 Admission HPI Per Admitting Provider 45-year-old female with a past medical history of orthostatic hypotension brain metastases from lung and breast cancer, seizure disorder, BRCA gene positive, acute pancreatitis, adenocarcinoma of lung, anxiety, he was discharged yesterday after she was treated with a bout of acute pancreatitis. She wanted to go home yesterday on the pain regimen reestablished orally, but she could not tolerate the regimen when she got home. She came into the ER complaining of abdominal pain and demanding Dilaudid. On her previous admission was she was discharged yesterday from she had an ERCP with a stent placed, her LFTs and lipase were down and she was discharged today she came in her lipase was up and her LFTs were up as well. I will bring her in under observation consult pain management Dr. Luul Hand for input and reconsult palliative care for hospice planning. Admission Exam Per Admitting Provider ROS-No Headache, No Visual Changes, No Nausea, No Vomiting, No Fever, No Chills, No Neck Pain or Stiffness, No Chest Pain, No Palpitations, No SOB, No GREWAL, No Cough, No Sputum, No Wheezing, severe abdominal Pain, No Diarrhea, No Hematem esis, No Hemoptysis, No Unexpected Weight Loss, No Flank pain, No Melena, No Hematochezia, No Frequency, No Urgency, No Burning, No Hematuria, No Rashes, No Diaphoresis. Appetite is Normal Physical Exam Gen-AAO x 3, moderate pain, Afebrile Head-NCAT, EOMI, PERRLA, Anicteric Sclera, No Posterior Pharyngeal Erythema Neck-Supple, No JVD, No Thyromegaly, No Masses, No LAD, No Bruits Lungs-Clear to Auscultation Bilaterally, No Rales, No Rhonchi, No Wheezing, No Crepitus Chest-tachycardic, no S4, +S1, +S2, No S3, No Murmurs, No Rubs, No Gallops, No Ectopy, positive Chemo-Port left upper chest Abdomen-Soft, Bowel Sounds Present, tender, Non Distended, No Hepatomegaly, No Splenomegaly, No Palpable Masses, No Rebound, No Rigidity, No Guarding Musculoskeletal-Full Range of Motion Bilaterally, No CVAT Extremities-No Cyanosis, No Clubbing, No Edema Nuero-Cranial Nerves II-XII grossly intact, Motor WNL, DTRs WNL, Strength WNL, Non Focal Psych-anxious Principal Diagnosis (1) Abdominal pain: (2) Pancreatic mass: (3) Elevated LFTs: (4) Anxiety: (5) Adenocarcinoma of lung: (6) Orthostatic lightheadedness: (7) BRCA gene positive: (8) Hx of breast cancer: (9) Seizure disorder: (10) Brain metastases: (11) DVT prophylaxis: Discharge Exam See below Discharge Data Allergies Allergy/AdvReac Type Severity Reaction Status Date / Time Penicillins Allergy Intermediate Swelling Verified 10/22/20 10:29 Consultations 10/22/20 13:05 ED Decision to Admit Stat 10/22/20 16:10 Consult Pain Management Routine Consult Palliative Care Routine Ordered Studies 10/22/20 10:25 CT abd pelvis IV con only Stat Current Diagnoses Malignant neoplasm of unspecified part of unspecified bronchus or lung ( 06/14) Secondary malignant neoplasm of brain (10/23/20) Secondary malignant neoplasm of unspecified site (10/23/20) Anxiety disorder, unspecified (10/23/20) Epilepsy, unspecified, not intractable, without status epilepticus (10/23/20) Constipation, unspecified (10/23/20) Other specified diseases of pancreas (10/23/20) Epigastric pain (10/23/20) Unspecified abdominal pain (10/23/20) Dizziness and giddiness (10/23/20) Other specified abnormal findings of blood chemistry (10/23/20) Genetic susceptibility to malignant neoplasm of breast (10/23/20) Genetic susceptibility to other malignant neoplasm (10/23/20) Encounter for prophylactic measures, unspecified (10/23/20) Encounter for palliative care (10/23/20) Personal history of malignant neoplasm of breast (10/23/20) Allergies Penicillins Allergy (Intermediate, Verified 10/22/20 10:29) Swelling Height/Weight/Isolation Height 5 ft 7 in Weight 83.6 kg Chemistry 10/24/20 10/25/20 05:55 05:37 Sodium 138 139 Potassium 3.5 3.6 Chloride 105 107 Carbon Dioxide 28 26 Anion Gap 5.0 7.0 BUN 4 L 4 L Creatinine 0.39 L 0.38 L Glucose 106 H 104 H Hospital Course (1) Abdominal pain: (2) Pancreatic mass: (3) Elevated LFTs: (4) Anxiety: (5) Adenocarcinoma of lung: (6) Orthostatic lightheadedness: (7) BRCA gene positive: (8) Hx of breast cancer: (9) Seizure disorder: (10) Brain metastases: (11) DVT prophylaxis: Lipase now normal Acute on Chonic Pancreatitis Feeling better, Pain regimen better, Lipase normal, DC on Full liquids, Really wants to try going home, No new Narc Scripts Patient will be on a regimen of MSIR 15 mg every 4 for breakthrough pain, MS Contin 30 mg every 12, palliative care and pain management on case, offered pelvic block and sent Narcan script to Rx scripts ROS-No Headache, No Visual Changes, No Nausea, No Vomiting, No Fever, No Chills, No Neck Pain or Stiffness, No Chest Pain, No Palpitations, No SOB, No GREWAL, No Cough, No Sputum, No Wheezing, + Abdominal Pain, No Diarrhea, No Hematemesis, No Hemoptysis, No Unexpected Weight Loss, No Flank pain, No Melena, No Hematochezia, No Frequency, No Urgency, No Burning, No Hematuria, No Rashes, No Diaphoresis. Appetite is Normal, +Large BM Physical Exam Gen-AAO x 3, NAD, Afebrile Head-NCAT, EOMI, PERRLA, Anicteric Sclera, No Posterior Pharyngeal Erythema Neck-Supple, No JVD, No Thyromegaly, No Masses, No LAD, No Bruits Lungs-Clear to Auscultation Bilaterally, No Rales, No Rhonchi, No Wheezing, No Crepitus Chest-No S4, +S1, +S2, No S3, No Murmurs, No Rubs, No Gallops, No Ectopy, +Port Abdomen-Soft, Bowel Sounds Present, Tender, Non Distended, No Hepatomegaly, No Splenomegaly, No Palpable Masses, No Rebound, No Rigidity, No Guarding Musculoskeletal-Full Range of Motion Bilaterally, No CVAT Extremities-No Cyanosis, No Clubbing, No Edema Nuero-Cranial Nerves II-XII grossly intact, Motor WNL, DTRs WNL, Strength WNL, Non Focal Psych-Normal Mood Total Time Total Time Spent Total Time Spent (In Minutes): 45 mins Total Time Includes: Examination of the Patient, Discharge Planning, Medication Reconciliation and Communication With Other Providers Discharge Plan Discharge Items Patient Disposition: Home - Self-Care Reason For Visit: PAIN CONTROL Discharge Diagnosis: (1) Abdominal pain: (2) Pancreatic mass: (3) Elevated LFTs: (4) Anxiety: (5) Adenocarcinoma of lung: (6) Orthostatic lightheadedness: (7) BRCA gene positive: (8) Hx of breast cancer: (9) Seizure disorder: (10) Brain metastases: (11) DVT prophylaxis: Condition on Discharge: Fair Health Concerns: Pain control Activity: Resume your previous activity Lifting: None Bathing: No limitations Sexual Activity: When tolerated Exercise/Sports: None Driving/Machine Use: No limitations Weightbearing: Full weightbearing Non-emergency contact: Primary Care Provider, Oncologist and Pain Management Call non-emergency contact if: you have any medication questions and your symptoms worsen Follow-up/Referrals: Jasiel Fritz DO [Primary Care Provider] - Lulu Hand DO [Physician] - (2-3 weeks) Diet: Full liquid and Other - See Diet Comment Diet Comment: As tolerated Addtl Attending Provider Instructions: Call Dr Fritz or your oncologist for Pain med refills You my take 1-3 tabs of OXY IR or 1-3 tabs of MS IR for breakthrough pain, but not all at once, up to 3 in hourly intervals Make appointment with pain management outpatient Pending Studies at Discharge: No Stand-Alone Forms: My [facility] newScale, Opioid Pain Management, Smoking Cessation Medications and DC Order Prescriptions: New oxycodone 5 mg Tablet 15 mg PO Q4H PRN (Reason: pain) Qty: 1 RF: 0 prednisone 10 mg tablet 10 mg PO DAILY Qty: 42 RF: 0 Continued naloxone 4 mg/actuation spray,non-aerosol 1 spray intranasal Q3M PRN (Reason: opioid overdose) Qty: 2 RF: 0 folic acid 1 mg Tablet 1 mg PO QAM RF: 0 ondansetron 8 mg Tablet,Disintegrating 8 mg PO Q8H PRN (Reason: Nausea) RF: 0 prochlorperazine maleate 10 mg Tablet 10 mg PO Q6H PRN (Reason: Nausea) RF: 0 polyethylene glycol 3350 [Miralax] 17 gram powder in packet 17 g PO QID PRN (Reason: Constipation) RF: 0 sennosides-docusate sodium [Senokot-S] 8.6-50 mg tablet 1 tab PO BID PRN (Reason: Constipation) RF: 0 docusate sodium 100 mg capsule 100 mg PO BID PRN (Reason: Constipation) RF: 0 diclofenac sodium 75 mg tablet,delayed release (DR/EC) 75 mg PO BID RF: 0 acetaminophen 325 mg Tablet 325 mg PO Q6H PRN (Reason: fever or pain) Qty: 90 RF: 0 midodrine 10 mg Tablet 10 mg PO TID@0700,1300,1800 Qty: 90 RF: 0 morphine 15 mg Tablet 15 mg PO Q4H PRN (Reason: pain) Qty: 90 RF: 0 fludrocortisone 0.1 mg Tablet 0.1 mg PO QAM Qty: 30 RF: 0 levetiracetam 500 mg tablet 1,500 mg PO BID RF: 0 magnesium chloride [Mag 64] 64 mg Tablet,Delayed Release (Dr/Ec) 64 mg PO BID Qty: 60 RF: 0 metoclopramide HCl 5 mg tablet 5 mg PO AC RF: 0 Changed morphine 15 mg Tablet Extended Release 30 mg PO Q12 Qty: 90 RF: 0 Discontinued dexamethasone 4 mg tablet 4 mg PO BID@0900,1530 Qty: 60 RF: 0 Discharge Orders: Discharge Order (Routine); Ordered 10/25/20 Ordered By: Abel Stroud Admission Data Admit Date/Time: 10/23/20 09:49 Attending Provider: Abel Stroud Admit Provider: Abel Stroud Primary Care Provider: Jasiel Fritz Other Providers: Abel Stroud ; Lulu Hand ; Shelly Walters
--- NOTE | 2020-10-25 12:06 | Palliative Care Progress Note ---
Date of Service October 25, 2020 Assessment & Plan (1) Palliative care encounter: Josi is tearful and frustrated with her pain. She is really focused on the biopsy that has been obtained. Results to be discussed with hospitalist. She very much wants to be at home with her family. She has said that being with her family is the most important thing to her and that she has things that she wants to do with them before she dies. She knows that she is going to but says that she would like to have a year to travel to [place] with her and take her grandchildren to [place]. She has two grandchildren ages 2 and 4 and her face brightens considerably when she talks about them. As with prior hospitalization, she is clear that she does not want to discuss hospice and that her goal is to receive any treatment possible to prolong her life to spend time with her family. (2) Abdominal pain, epigastric: Tolerating Oxy ER 60 mg BID. Has utilized THREE doses of Oxycodone IR 15 mg Q4 PRN. Also has utilized SEVEN doses of Dilaudid IV Q1 PRN. For a goal of discharging the patient home, I would want her to be off of IV pain meds to ensure appropriate coverage of pain control. I did talk with her about this and she is frustrated that she is not home. I do not feel that her pain is adequately controlled based on her use evaluation. I talked with her again about the possibility of having a celiac plexus block, which she was adament that she wanted to hold off doing for now. She does agree that some of this is emotional pain. Should she be discharged over the next day, would recommend palliative and pain management follow up for further management. (3) Anxiety: She has history of anxiety which is exacerbated by her current medical problems. With hypotension and opioid dosing, would hold off on benzodiazepine but she may benefit from duloxetine for her anxiety and chronic pain. (4) Constipation: She has had poor po intake but no bm in one week. Pt tolerating Senna. (5) Adenocarcinoma of lung: (6) Pancreatic mass: Admission and Anticipated Discharge Date Admission Date: October 23, 2020 Subjective Pt resting in her bed. Reports pain to be 10/10 at rest. Frustrated that she is still in the hospital. SEe A/P for further details. Review of Systems Review of Systems: [place] Symptom Assessment Scale Pain 3/3 Dyspnea 0/3 Anxiety 2/3 Fatigue 2/3 Nausea 0/3 Drowsiness 1/3 Palliative Performance Score 50% Physical Exam Constitutional: well developed Respiratory: normal respiratory effort; no labored breathing Gastrointestinal (Abdomen): Percussion/Palpation: + abdomen tender (epigastrium) and abdomen soft Psychiatric: Affect: + tearful affect Mood: + anxious mood Results & Data ([facility]) Vital Signs (Past 12 Hours) Vital Signs Temp Pulse Resp BP Pulse Ox 10/25/20 07:23 36.8 C 71 16 90/62 L 96 PG Care Time/CCT Total # of Minutes Spent Total Time Spent with Patient: Total time spent is greater than 50% in coordination of care (as documented) at patient's floor/unit and/or counseling patient: 35 minutes with >50% of that time spent assessing the patient, discussing symptom management, adjusting medications, and collaborating with IDT Coding Level of Care Code 05725 Subseq Hosp Care Lvl 3 Diagnoses Palliative care encounter Z51.5 Abdominal pain, epigastric R10.13 Anxiety F41.9 Constipation K59.00 Adenocarcinoma of lung C34.90 Pancreatic mass K86.89 Time Spent (min) 35
[2020-10-25] MEDS: MoRPHine SULFATE CR 15 MG TABCR PO SCH (12:07)
[2020-10-26] MEDS: D5W AND 1/2NSS + 20MEQ KCL 20 MEQ/1,000 ML BAG IV SCH ×2 (00:23→12:26)
[2020-10-26] MEDS: MoRPHine SULFATE CR 15 MG TABCR PO SCH ×3 (00:23→23:27)
[2020-10-26] MEDS: oxyCODONE HCL IR 5 MG TAB (IMMEDIATE RELEASE) PO PRN ×4 (04:28→19:46)
[2020-10-26 06:52] LABS: Albumin Level 2.8 gm/dl (3.4-5.0); BUN Creatinine Ratio 4.5 (10-20); Calcium 9.5 mg/dl (8.5-10.1); Creatinine Clr Calc Pharmacy 185.5 ml/min; Est GFR (African American) 143.4 ml/min; Est GFR (Non-African American) 123.7 ml/min; Potassium 3.5 mmol/L (3.5-5.1)
[2020-10-26 06:56] LABS: Albumin Globulin Ratio 0.7 (0.9-2); Bilirubin,Total 1.1 mg/dl (0.2-1); Globulin 4.1 gm/dl (2.5-4.0); Total Protein 6.9 gm/dl (6.4-8.2)
[2020-10-26] MEDS: FLUDROCORTISONE ACETATE 0.1 MG TAB PO SCH (08:03)
[2020-10-26] MEDS: predniSONE 20 MG TAB PO SCH (08:03)
[2020-10-26] MEDS: MAGNESIUM CHLORIDE 64MG DELAYED REL TAB PO SCH ×2 (08:03→21:11)
[2020-10-26] MEDS: levETIRAcetam 500 MG TAB PO SCH ×2 (08:05→21:11)
[2020-10-26] MEDS: DOCUSATE SODIUM/SENNA 50/8.6MG TAB PO SCH (08:05)
[2020-10-26] MEDS: FOLIC ACID 1 MG TAB PO SCH (08:05)
[2020-10-26] MEDS: HEPARIN SOD 5,000 UNIT/0.5 ML VIAL SQ SCH ×3 (08:06→21:11)
[2020-10-26] MEDS: DICLOFENAC SODIUM 75 MG TABCR PO SCH ×2 (08:06→21:10)
[2020-10-26] MEDS: MIDODRINE HCL 10 MG TAB PO SCH ×3 (08:06→17:13)
[2020-10-26] MEDS: POTASSIUM CHLORIDE 20 MEQ/15 ML UDC PO SCH ×4 (08:06→21:10)
[2020-10-26] MEDS: METOCLOPRAMIDE HCL 5 MG TABLET PO SCH ×3 (08:07→15:48)
--- NOTE | 2020-10-26 12:10 | XRay Report ---
XR chest 2V PA/lateral HISTORY: cough COMPARISON: Chest 09/08/2020. FINDINGS: No pneumothorax. Left subclavian Port-A-Cath terminates at the SVC. This remains unchanged. The heart is enlarged. Partially visualized metallic common bile duct stent is noted. Prior cholecys tectomy. Right upper lobe 5 cm mass is again noted. There is mild interstitial thickening which remai ns unchanged. No new focal lung consolidations to suggest pneumonia. No evidence for pulmonary edema. Stable atelectasis within the right middle lobe. IMPRESSION: 1. No new focal lung consolidations to suggest pneumonia. Stable right middle lobe atelectasis. 2. Redemonstration of the 5 cm right upper lobe mass. ACT 112: Negative or not required by law. Electronically signed by: Obed Rashid M.D. 10/26/2020 12:09 PM
[2020-10-26] MEDS: LORazepam 1 MG TAB PO PRN (12:25)
[2020-10-26] MEDS: cefUROXime axetil 250 MG TABLET PO SCH ×2 (15:44→23:27)
--- NOTE | 2020-10-26 18:09 | Hospitalist Progress Note ---
Date of Service October 26, 2020 Assessment & Plan (1) Abdominal pain: (2) Pancreatic mass: (3) Elevated LFTs: (4) Anxiety: (5) Adenocarcinoma of lung: (6) Orthostatic lightheadedness: (7) BRCA gene positive: (8) Hx of breast cancer: (9) Seizure disorder: (10) Brain metastases: (11) DVT prophylaxis: Acute on chronic pancreatitis Pancreatic mass -CT ABD:Interval placement of a biliary enteric stent with secondary pneumobilia. Decreasing peripancreatic inflammation. Persistent mild dilatation the pancreatic duct with a distal pancreatic duct cut off sign. Tiny lower lobe centrilobular. Pulmonary nodules. Persistent mesenteric, susanna hepatis, and retroperitoneal lymphadenopathy. Mild focal wall thickening involving the right posterior bladder. Stable adrenal masses. No evidence of bowel obstruction. No evidence of free air Normal appendix. No evidence of acute diverticulitis. -Pathology:Metastatic carcinoma consistent with lung primary -Metastatic disease contributing to pain as well -Lipase levels normalized Advance diet as tolerated IV fluids Palliative care following Possible bronchitis CXR: No new focal lung consolidations to suggest pneumonia. Stable right middle lobe atelectasis. Redemonstration of the 5 cm right upper lobe mass. Started on Ceftin Metastatic lung cancer H/O NSCLC Extensive lymphadenopathy to neck, chest, abdomen, brain metastasis and bilateral adrenal gland metastatic disease S/P stereotactic radiosurgery/brain tumor resection On chemotherapy On chronic Steroid therapy Orthostatic hypotension On fludrocortisone, midodrine Anemia of chronic disease Mild Hb drop likely dilutional secondary to IV fluids Monitor Hypokalemia Replace electrolytes as needed H/O Seizure Continue Keppra DVT Px: Heparin SQ Code Status Full Code Admission and Anticipated Discharge Date Admission Date: October 23, 2020 Subjective Patient is seen and examined at bedside States not feeling well today Reports cough with minimal yellowish expectoration Reports chronic neck pain, abdominal pain States having intermittent dizziness with ambulation Offers no other complaints Review of Systems Review of Systems: All systems reviewed & are unremarkable except as noted in HPI & below Physical Exam Physical Exam: Physical Exam: Vitals signs as noted above General Appearance:Moderately built and nourished, no apparent distress Head: normocephalic, Atraumatic Eyes: normal inspection, EOMI Neck: supple, Trachea midline. Left lateral neck tenderness-chronic Respiratory/Chest: Normal breath sounds, CTA Cardiovascular: S1, S2, No murmur Abdomen/GI:Soft, Mild generalized tender, Bowel sounds present, + voluntary guarding Extremities/Musculoskeletal:normal inspection, no edema Neurologic/Psych:AAOX3, grossly no focal neurological deficits Skin: normal color, warm Results & Data Results & Data ([facility]) Vital Signs (Past 12 Hours) Vital Signs Temp Pulse Resp BP Pulse Ox 10/26/20 12:25 108/76 10/26/20 07:36 36.7 C 78 16 102/70 98 Laboratory Results [facility] 10/26/20 05:39 Sodium 140 Potassium 3.5 Chloride 107 Carbon Dioxide 26 BUN 2 L Creatinine 0.43 L Glucose 85 Calcium 9.5 Liver Function 10/26/20 Range/Units 05:39 Total Bilirubin 1.1 H (0.2-1) mg/dl AST 40 H (15-37) U/L ALT 162 H (12-78) U/L Alkaline Phosphatase 284 H (45-117) U/L Albumin 2.8 L (3.4-5.0) gm/dl
[2020-10-27] MEDS: D5W AND 1/2NSS + 20MEQ KCL 20 MEQ/1,000 ML BAG IV SCH
[2020-10-27] MEDS: oxyCODONE HCL IR 5 MG TAB (IMMEDIATE RELEASE) PO PRN ×3 (02:07→10:27)
[2020-10-27] MEDS: HEPARIN SOD 5,000 UNIT/0.5 ML VIAL SQ SCH ×2 (06:20→14:09)
[2020-10-27] MEDS: MIDODRINE HCL 10 MG TAB PO SCH ×2 (06:20→14:09)
[2020-10-27 07:06] LABS: BUN Creatinine Ratio 6.6 (10-20); Calcium 9.7 mg/dl (8.5-10.1); Creatinine Clr Calc Pharmacy 162.8 ml/min; Est GFR (African American) 137.3 ml/min; Est GFR (Non-African American) 118.5 ml/min; Magnesium 1.6 mg/dl (1.8-2.4); Potassium 3.3 mmol/L (3.5-5.1)
[2020-10-27] MEDS: DICLOFENAC SODIUM 75 MG TABCR PO SCH (08:01)
[2020-10-27] MEDS: POTASSIUM CHLORIDE 20 MEQ/15 ML UDC PO SCH (08:03)
[2020-10-27] MEDS: FLUDROCORTISONE ACETATE 0.1 MG TAB PO SCH (08:03)
[2020-10-27] MEDS: FOLIC ACID 1 MG TAB PO SCH (08:03)
[2020-10-27] MEDS: LORazepam 1 MG TAB PO PRN (08:03)
[2020-10-27] MEDS: levETIRAcetam 500 MG TAB PO SCH (08:04)
[2020-10-27] MEDS: DOCUSATE SODIUM/SENNA 50/8.6MG TAB PO SCH (08:04)
[2020-10-27] MEDS: MAGNESIUM CHLORIDE 64MG DELAYED REL TAB PO SCH (08:05)
[2020-10-27] MEDS: cefUROXime axetil 250 MG TABLET PO SCH (08:05)
[2020-10-27] MEDS: METOCLOPRAMIDE HCL 5 MG TABLET PO SCH ×2 (08:36→12:11)
[2020-10-27] MEDS ORDERED: predniSONE 20 MG TAB PO SCH (09:00)
[2020-10-27] MEDS ORDERED: LACTATED RINGER'S 1,000 ML IV SCH (09:30)
[2020-10-27] MEDS ORDERED: MAGNESIUM SULFATE / D5W 1 GM/100 ML BAG IV ONE (09:45)
--- NOTE | 2020-10-27 11:09 | Palliative Care Progress Note ---
Date of Service October 27, 2020 Assessment & Plan (1) Palliative care encounter: Josi appears emotional She very much wants to be at home with her family. She has said that being with her family is the most important thing to her and that she has things that she wants to do with them before she dies. She knows that she is going to but says that she would like to have a year to travel to [place] with her and take her grandchildren to [place]. She has two grandchildren ages 2 and 4 and her face brightens considerably when she talks about them. As with prior hospitalization, she is clear that she does not want to discuss hospice and that her goal is to receive any treatment possible to prolong her life to spend time with her family. Hopeful for discharge today. Discussed with hospitalist. (2) Abdominal pain, epigastric: Tolerating Oxy ER 30 mg BID. Has utilized FIVE doses of Oxycodone IR 15 mg Q4 PRN. Dilaudid IV has been discontinued. Plan is for discharge home today. I talked with her again about the possibility of having a celiac plexus block, which she was adament that she wanted to hold off doing for now, but was agreeable to seeing pain management for outpatient post discharge. She does agree that some of this is emotional pain. Will schedule her Oxy ER 30 mg PO Q8 with hopes that her PRN use decreases. Palliative will follow outpatient. (3) Anxiety: She has history of anxiety which is exacerbated by her current medical problems. With hypotension and opioid dosing, would hold off on benzodiazepine but she may benefit from duloxetine for her anxiety and chronic pain. (4) Constipation: Pt tolerating Senna and has had a BM two days ago. (5) Adenocarcinoma of lung: (6) Pancreatic mass: Admission and Anticipated Discharge Date Admission Date: October 23, 2020 Subjective Patient is seen and examined at bedside Less cough today Tolerated regular diet Hoping to be DC today. Long acting med changes made. See AP for details. Review of Systems Review of Systems: [place] Symptom Assessment Scale Pain 3/3 Dyspnea 0/3 Anxiety 2/3 Fatigue 2/3 Nausea 0/3 Drowsiness 1/3 Palliative Performance Score 50% Physical Exam Constitutional: well developed Respiratory: normal respiratory effort; no labored breathing Gastrointestinal (Abdomen): Percussion/Palpation: + abdomen tender (epigastrium) and abdomen soft Psychiatric: Affect: + tearful affect Mood: + anxious mood Results & Data ([facility]) Vital Signs (Past 12 Hours) Vital Signs Temp Pulse Resp BP Pulse Ox 10/27/20 07:44 37.0 C 108 H 16 112/79 93 PG Care Time/CCT Total # of Minutes Spent Total Time Spent with Patient: Total time spent is greater than 50% in coordination of care (as documented) at patient's floor/unit and/or counseling patient: 35 minutes with > 50% of that time spent assessing the patient, discussing goals of care and pain management, while collaborating with IDT Coding Level of Care Code 17982 Subseq Hosp Care Lvl 3 Diagnoses Palliative care encounter Z51.5 Abdominal pain, epigastric R10.13 Anxiety F41.9 Constipation K59.00 Adenocarcinoma of lung C34.90 Pancreatic mass K86.89 Time Spent (min) 35
[2020-10-27] MEDS: MoRPHine SULFATE CR 15 MG TABCR PO SCH (12:10)
--- NOTE | 2020-10-27 13:01 | Hospitalist Progress Note ---
Date of Service October 27, 2020 Assessment & Plan (1) Abdominal pain: (2) Pancreatic mass: (3) Elevated LFTs: (4) Anxiety: (5) Adenocarcinoma of lung: (6) Orthostatic lightheadedness: (7) BRCA gene positive: (8) Hx of breast cancer: (9) Seizure disorder: (10) Brain metastases: (11) DVT prophylaxis: Acute on chronic pancreatitis Pancreatic mass -CT ABD:Interval placement of a biliary enteric stent with secondary pneumobilia. Decreasing peripancreatic inflammation. Persistent mild dilatation the pancreatic duct with a distal pancreatic duct cut off sign. Tiny lower lobe centrilobular. Pulmonary nodules. Persistent mesenteric, susanna hepatis, and retroperitoneal lymphadenopathy. Mild focal wall thickening involving the right posterior bladder. Stable adrenal masses. No evidence of bowel obstruction. No evidence of free air Normal appendix. No evidence of acute diverticulitis. -Pathology:Metastatic carcinoma consistent with lung primary -Metastatic disease contributing to pain as well -Lipase levels normalized Tolerated regular diet Received IV fluids Palliative care following Possible bronchitis CXR: No new focal lung consolidations to suggest pneumonia. Stable right middle lobe atelectasis. Redemonstration of the 5 cm right upper lobe mass. Continue Ceftin Metastatic lung cancer H/O NSCLC Extensive lymphadenopathy to neck, chest, abdomen, brain metastasis and bilateral adrenal gland metastatic disease S/P stereotactic radiosurgery/brain tumor resection On chemotherapy On chronic Steroid therapy Orthostatic hypotension On fludrocortisone, midodrine Anemia of chronic disease Mild Hb drop likely dilutional secondary to IV fluids Monitor Hypokalemia Replace electrolytes as needed H/O Seizure Continue Keppra DVT Px: Heparin SQ Code Status Full Code Admission and Anticipated Discharge Date Admission Date: October 23, 2020 Subjective Patient is seen and examined at bedside Less cough today Tolerated regular diet Denies any significant abdominal pain Eager to get discharged Denies dyspnea, chest pain, dizziness, nausea, vomiting Offers no other complaints Review of Systems Review of Systems: All systems reviewed & are unremarkable except as noted in HPI & below Physical Exam Physical Exam: Physical Exam: Vitals signs as noted above General Appearance:Moderately built and nourished, no apparent distress Head: normocephalic, Atraumatic Eyes: normal inspection, EOMI Neck: supple, Trachea midline. Left lateral neck tenderness-chronic Respiratory/Chest: Normal breath sounds, CTA Cardiovascular: S1, S2, No murmur Abdomen/GI:Soft, Mild generalized tender, Bowel sounds present, + voluntary guarding Extremities/Musculoskeletal:normal inspection, no edema Neurologic/Psych:AAOX3, grossly no focal neurological deficits Skin: normal color, warm Results & Data Results & Data ([facility]) Vital Signs (Past 12 Hours) Vital Signs Temp Pulse Resp BP Pulse Ox 10/27/20 07:44 37.0 C 108 H 16 112/79 93 Laboratory Results [facility] 10/27/20 06:01 Sodium 137 Potassium 3.3 L Chloride 103 Carbon Dioxide 27 BUN 3 L Creatinine 0.49 L Glucose 100 H Calcium 9.7
--- NOTE | 2020-10-27 13:15 | Discharge Summary ---
Date of Service October 27, 2020 Admission HPI Per Admitting Provider 45-year-old female with a past medical history of orthostatic hypotension brain metastases from lung and breast cancer, seizure disorder, BRCA gene positive, acute pancreatitis, adenocarcinoma of lung, anxiety, he was discharged yesterday after she was treated with a bout of acute pancreatitis. She wanted to go home yesterday on the pain regimen reestablished orally, but she could not tolerate the regimen when she got home. She came into the ER complaining of abdominal pain and demanding Dilaudid. On her previous admission was she was discharged yesterday from she had an ERCP with a stent placed, her LFTs and lipase were down and she was discharged today she came in her lipase was up and her LFTs were up as well. I will bring her in under observation consult pain management Dr. Lulu Hand for input and reconsult palliative care for hospice planning. Admission Exam Per Admitting Provider Physical Exam Gen-AAO x 3, moderate pain, Afebrile Head-NCAT, EOMI, PERRLA, Anicteric Sclera, No Posterior Pharyngeal Erythema Neck-Supple, No JVD, No Thyromegaly, No Masses, No LAD, No Bruits Lungs-Clear to Auscultation Bilaterally, No Rales, No Rhonchi, No Wheezing, No Crepitus Chest-tachycardic, no S4, +S1, +S2, No S3, No Murmurs, No Rubs, No Gallops, No Ectopy, positive Chemo-Port left upper chest Abdomen-Soft, Bowel Sounds Present, tender, Non Distended, No Hepatomegaly, No Splenomegaly, No Palpable Masses, No Rebound, No Rigidity, No Guarding Musculoskeletal-Full Range of Motion Bilaterally, No CVAT Extremities-No Cyanosis, No Clubbing, No Edema Nuero-Cranial Nerves II-XII grossly intact, Motor WNL, DTRs WNL, Strength WNL, Non Focal Psych-anxious Principal Diagnosis Acute on chronic pancreatitis Pancreatic mass Acute bronchitis Metastatic lung cancer Hypokalemia Discharge Data Allergies Allergy/AdvReac Type Severity Reaction Status Date / Time Penicillins Allergy Intermediate Swelling Verified 10/22/20 10:29 Consultations 10/22/20 13:05 ED Decision to Admit Stat 10/22/20 16:10 Consult Pain Management Routine Consult Palliative Care Routine Procedures Performed CT ABD:Interval placement of a biliary enteric stent with secondary pneumobilia. Decreasing peripancreatic inflammation. Persistent mild dilatation the pancreatic duct with a distal pancreatic duct cut off sign. Tiny lower lobe centrilobular. Pulmonary nodules. Persistent mesenteric, susanna hepatis, and retroperitoneal lymphadenopathy. Mild focal wall thickening involving the right posterior bladder. Stable adrenal masses. No evidence of bowel obstruction. No evidence of free air CXR: No new focal lung consolidations to suggest pneumonia. Stable right middle lobe atelectasis. Redemonstration of the 5 cm right upper lobe mass. Ordered Studies 10/22/20 10:25 CT abd pelvis IV con only Stat Hospital Course (1) Abdominal pain: (2) Pancreatic mass: (3) Elevated LFTs: (4) Anxiety: (5) Adenocarcinoma of lung: (6) Orthostatic lightheadedness: (7) BRCA gene positive: (8) Hx of breast cancer: (9) Seizure disorder: (10) Brain metastases: (11) DVT prophylaxis: Acute on chronic pancreatitis Pancreatic mass -CT ABD:Interval placement of a biliary enteric stent with secondary pneumobilia. Decreasing peripancreatic inflammation. Persistent mild dilatation the pancreatic duct with a distal pancreatic duct cut off sign. Tiny lower lobe centrilobular. Pulmonary nodules. Persistent mesenteric, susanna hepatis, and retroperitoneal lymphadenopathy. Mild focal wall thickening involving the right posterior bladder. Stable adrenal masses. No evidence of bowel obstruction. No evidence of free air Normal appendix. No evidence of acute diverticulitis. -Pathology:Metastatic carcinoma consistent with lung primary -Metastatic disease contributing to pain as well -Lipase levels normalized Tolerated regular diet Received IV fluids Palliative care following Possible bronchitis CXR: No new focal lung consolidations to suggest pneumonia. Stable right middle lobe atelectasis. Redemonstration of the 5 cm right upper lobe mass. Continue Ceftin Metastatic lung cancer H/O NSCLC Extensive lymphadenopathy to neck, chest, abdomen, brain metastasis and bilateral adrenal gland metastatic disease S/P stereotactic radiosurgery/brain tumor resection On chemotherapy On chronic Steroid therapy Orthostatic hypotension On fludrocortisone, midodrine Anemia of chronic disease Mild Hb drop likely dilutional secondary to IV fluids Monitor Hypokalemia Replace electrolytes as needed H/O Seizure Continue Keppra DVT Px: Heparin SQ Code Status Full Code Total Time Total Time Spent Total Time Spent (In Minutes): 39 minutes Total Time Includes: Examination of the Patient, Discharge Planning, Medication Reconciliation, Communication With Other Providers and Other Discharge Plan Discharge Items Patient Disposition: Home - Self-Care Reason For Visit: PAIN CONTROL Discharge Diagnosis: Acute on chronic pancreatitis Pancreatic mass Acute bronchitis Metastatic lung cancer Hypokalemia Condition on Discharge: Fair Health Concerns: Pain control Activity: Resume your previous activity Lifting: None Bathing: No limitations Exercise/Sports: Gradually increase as tolerated Non-emergency contact: Primary Care Provider, Oncologist and Pain Management Call non-emergency contact if: you have any medication questions and your sympt oms worsen Follow-up/Referrals: Lulu Hand DO [Physician] - 11/21/20 2:30 pm (2-3 weeks APPT WITH [facility]) Jasiel Fritz DO [Primary Care Provider] - (Date & Time 10/30/2020 2:00 PM Provider Jasiel Fritz DO Department [facility] ) Diet: Full liquid and Other - See Diet Comment Diet Comment: As tolerated Addtl Attending Provider Instructions: Follow up with on 10/30/2020 2:00 PM Follow up with your Oncologist in 1-2 weeks as recommended Follow up with your Pain management on 11/21/20 at 2:30pm Complete the antibiotic course as prescribed for bronchitis. Your Prednisone Taper course dosage to be determined by your Primary Care physician/Oncologist. Please contact your provider for further instructions Seek immediate medical attention if your symptoms reoccur or worsen Please take all medications as instructed on discharge list below. Please call if you have any questions or problems. You can reach a [facility] hospitalist on duty at [facility] 24 hours a day by calling [phone] Pending Studies at Discharge: No Stand-Alone Forms: [facility], Opioid Pain Management, Smoking Cessation Medications and DC Order Prescriptions: New oxycodone 5 mg Tablet 15 mg PO Q4H PRN (Reason: pain) Qty: 1 RF: 0 prednisone 10 mg tablet 10 mg PO DAILY Qty: 42 RF: 0 cefuroxime axetil 250 mg Tablet 250 mg PO BID Qty: 10 RF: 0 potassium chloride 20 mEq tablet extended release 20 meq PO DAILY Qty: 14 RF: 0 Continued naloxone 4 mg/actuation spray,non-aerosol 1 spray intranasal Q3M PRN (Reason: opioid overdose) Qty: 2 RF: 0 folic acid 1 mg Tablet 1 mg PO QAM RF: 0 ondansetron 8 mg Tablet,Disintegrating 8 mg PO Q8H PRN (Reason: Nausea) RF: 0 prochlorperazine maleate 10 mg Tablet 10 mg PO Q6H PRN (Reason: Nausea) RF: 0 polyethylene glycol 3350 [Miralax] 17 gram powder in packet 17 g PO QID PRN (Reason: Constipation) RF: 0 sennosides-docusate sodium [Senokot-S] 8.6-50 mg tablet 1 tab PO BID PRN (Reason: Constipation) RF: 0 docusate sodium 100 mg capsule 100 mg PO BID PRN (Reason: Constipation) RF: 0 diclofenac sodium 75 mg tablet,delayed release (DR/EC) 75 mg PO BID RF: 0 acetaminophen 325 mg Tablet 325 mg PO Q6H PRN (Reason: fever or pain) Qty: 90 RF: 0 midodrine 10 mg Tablet 10 mg PO TID@0700,1300,1800 Qty: 90 RF: 0 morphine 15 mg Tablet 15 mg PO Q4H PRN (Reason: pain) Qty: 90 RF: 0 fludrocortisone 0.1 mg Tablet 0.1 mg PO QAM Qty: 30 RF: 0 levetiracetam 500 mg tablet 1,500 mg PO BID RF: 0 magnesium chloride [Mag 64] 64 mg Tablet,Delayed Release (Dr/Ec) 64 mg PO BID Qty: 60 RF: 0 metoclopramide HCl 5 mg tablet 5 mg PO AC RF: 0 lorazepam 1 mg tablet 1 mg PO TID PRN (Reason: Anxiety) RF: 0 Changed morphine 15 mg Tablet Extended Release 30 mg PO Q12 Qty: 90 RF: 0 Discontinued dexamethasone 4 mg tablet 4 mg PO BID@0900,1530 Qty: 60 RF: 0 Discharge Orders: Discharge Order (Routine); Ordered 10/27/20 Ordered By: Dario Aguayo Admission Data Admit Date/Time: 10/23/20 09:49 Attending Provider: Dario Aguayo Admit Provider: Abel Stroud Primary Care Provider: Jasiel Fritz Other Providers: Abel Stroud ; Lulu Hand ; Shelly Walters. Other Interventions: Discharge Summary Assessment (RN) Last Done: 10/27/20 14:05
[2020-10-27] MEDS ORDERED: MoRPHine SULFATE CR 15 MG TABCR PO SCH (20:00)
--- NOTE | 2020-11-06 14:06 | Coding Query ---
CODING QUERY To promote full compliance with coding requirements relating to patient care, provider participation is requested in all cases of marketing database analyst uncertainty. Please assist us with the question(s) below: Coding Question(s): 1. Abdominal Pain and Pancreatic Mass and Acute on Chronic Pancreatitis are documented in the record and on Discharge Summary and documentation in the Hospital Course on the Discharge Summary, under Pancreatic Mass shows, "Pathology:Metastatic carcinoma consistent with lung primary -Metastatic disease contributing to pain as well". Please clarify below, in your clinical opinion, regarding the Metastatic disease that is contributing to pain and please specify further if indicated. ( ) Metastatic cancer to the Pancrease is contributing to abdominal pain. Please specify further below: ( ) Abdominal Pain from Metastatic Cancer and Acute on Chronic Pancreatitis were equally treated during the Inpatient admission (x ) Abdominal Pain from Metastatic Cancer was treated more during the Inpatient admission ( ) Abdominal Pain from Acute on Chronic Pancreatitis was treated more during the Inpatient admission ( ) Abdominal Pain from Other was treated more during the Inpatient admission: Please Specify ( ) Metastatic cancer to Other is contributing to abdominal pain: Please Specify the site of metastatic cancer . Please specify further below: ( ) Abdominal Pain from Metastatic Cancer and Acute on Chronic Pancreatitis were equally treated during the Inpatient admission ( ) Abdominal Pain from Metastatic Cancer was treated more during the Inpatient admission ( ) Abdominal Pain from Acute on Chronic Pancreatitis was treated more during the Inpatient admission ( ) Abdominal Pain from Other was treated more during the Inpatient admission: Please Specify ( ) Other: Please Specify 2. The Pain Management Consultation on 10/23/20 documents intractable midepigastric abdominal pain. This is not documented by attending. Please specify below, in your clinical opinion regarding the abdominal pain. ( x ) Intractable Abdominal Pain ( ) Abdominal Pain - Not Intractable ( ) Other: Please Specify Physician's Response(s): Thank you Ryann Bolivar Principal Diagnosis: "that condition established after study, to be chiefly responsible for occasioning the admission of the patient to the hospital for care." Co-Existing Principal Diagnosis: "when two or more diagnoses equally meet the criteria for principal diagnosis as determined by the circumstances of admission, diagnostic work up, and/or therapy provided, and the Alphabetic Index, Tabular List, or another coding guideline does not provide sequencing direction, any one of the diagnoses may be sequenced first." "When the physician has documented what appears to be a current diagnosis in the body of the record, but has not included the diagnosis in the final diagnostic statement, the physician should be asked whether the diagnosis should be added." (Source Coding [facility] 2 QTR90. p3-4) ASMITA
== END 2020-10-27 14:47 | disposition home or self-care (01) | DRG 374 ==
LOC: 3E 09:48 → ED 09:48 → 3E 15:37 → SUATTDRO 10-23 09:49

== ENCOUNTER 2020-10-30 15:40 | Inpatient (IN) ==
[2020-10-30] MEDS ORDERED: SODIUM CHLORIDE 0.9% 1000ML 1,000 ML IV STA (16:24)
[2020-10-30] MEDS ORDERED: ONDANSETRON INJ 2 MG/ML 2 ML VIAL IV STA (16:24)
--- NOTE | 2020-10-30 16:47 | Emergency Department Note ---
Impression & Plan Epigastric abdominal pain, Adenocarcinoma of lung, Acute pancreatitis ED Provider Note NAME: YNES MCCARTY AGE: 45 SEX: F : 1975 ARRIVES VIA: Walk-In INFORMANT: Patient, ED PROVIDER(S): Alexy Asencio DO CHIEF COMPLAINT: Abdominal pain HPI: The patient is a 45-year-old female who presented to the emergency department for an evaluation of abdominal pain. The patient has known diagnosis of cancer but recently was admitted to our facility for pancreatitis. She was discharged home with pain medication but states that even her outpatient medication regimen is not managing her abdominal pain. She denies having any fever. She has had no hematemesis or black stools. She states she did talk to her family doctor but is unable to get any help as an outpatient. She return to the emergency department today because of worsening pain. She denies having any chest pain. She denies having any rashes. ROS: See above HPI for pertinent positives & negatives. A total of 10 systems r eviewed and were otherwise negative. PAST MEDICAL HISTORY: See Below PAST SURGICAL HISTORY: See Below FAMILY HISTORY: See Below SOCIAL HISTORY: See Below HOME MEDICATIONS: See Below ALLERGIES: See Below VITALS: See Below PHYSICAL EXAMINATION: GENERAL: The patient is awake and alert. She is anxious appearing and appears to be uncomfortable. EYES: The conjunctivae are clear. The pupils are round and reactive. EARS, NOSE, MOUTH AND THROAT: The nose is without any evidence of any deformity. NECK: The neck is nontender and supple. RESPIRATORY: Normal respiratory effort is noted there is no evidence of wheezing rhonchi or rales CARDIOVASCULAR: Tachycardic rate with regular rhythm was noted. There was no d efinite murmur. GASTROINTESTINAL: The abdomen is moderately distended. There is diffuse tenderness to palpation but no guarding rigidity. MUSCULOSKELETAL/EXTREMITIES: There is no evidence of gross deformity full range of motion is noted in the hips and shoulders. SKIN: There is no obvious evidence of any rash. There are no petechiae, pallor or cyanosis noted. NEUROLOGIC: Patient is awake alert and oriented x3. MEDICAL DECISION MAKING: The patient is a 45-year-old female who presented to the emergency department for an evaluation of abdominal pain. The patient does have a history of adenocarcinoma which is metastatic. She was also recently diagnosed with pancreatic cancer as well. The patient presented to the emergency department because of ongoing pain. She was treated with IV pain medication in the emergency department. She was reevaluated multiple times and was feeling much better. At this time the patient's pancreatic cancer is a new diagnosis. It sounds that the patient is having difficulty managing this pain at home. For this reason I discussed her case with the on-call [facility]. They have agreed to evaluate the patient in the emergency department for further management and disposition. Triage Nursing notes reviewed. Prior medical records reviewed Vital Signs: reviewed and remarkable for hypotension and hypoxia. Differential diagnosis: Etiologies such as appendicitis, diverticulitis, obstruction, inflammatory bowel disease, renal colic, PUD, biliary pathology, pancreatitis, mesenteric ischemia, aortic pathology, infections, genitourinary, UTI, perforated viscus, as well as others were entertained. ER treatment provided: See below Diagnostics interpreted by me: ECG: none Cardiac Monitoring: An order was placed for continuous cardiac monitoring. The monitor shows a rate of 93 bpm with sinus rhythm. Laboratory studies: As stated above and show below. Imaging studies: See below Consultation(s): I discussed this case with Dr. Flores who is on-call for the [facility] group. They have agreed to evaluate the patient in the emergency department. Past Med/Surg History Medical History Abdominal pain Adenocarcinoma of lung w/ extensive lymphadenopathy in the neck, chest, abdomen; brain and bilateral adrenal metastases Brain metastases BRCA gene positive Hx of breast cancer Palliative care encounter Seizure disorder Due to tumor edematous burden Surgical History H/O bilateral mastectomy H/O craniotomy 05/2020-right frontal craniotomy for brain tumor resection H/O: hysterectomy History of cholecystectomy Family History Aunt Breast cancer Social History Smoking Status: Former smoker Tobacco Type: Cigarettes packs per day: 1; Years Smoked: 23; Second Hand Exposure: No; Hx Alcohol Use: No Hx Substance Use: No Preferred Language: Turkmen Communication Ability: Effective 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 Beliefs That Will Affect Care: None marital status: Current Living Situation: Spouse How many Children do You have: 2 Other Information That Helps Us Care for You: No Feels Safe at Home: Yes Safety Concerns: Feels Safe At This Time Assistive Devices: None Allergies Allergies Allergy/AdvReac Type Severity Reaction Status Date / Time Penicillins Allergy Intermediate Swelling Verified 10/30/20 16:55 Home Meds Home Medications Medication Instructions Recorded Confirmed folic acid 1 mg PO QAM 07/09/20 10/30/20 ondansetron 8 mg PO Q8H PRN 07/09/20 10/30/20 prochlorperazine maleate 10 mg PO Q6H PRN 07/09/20 10/30/20 polyethylene glycol 3350 [Miralax] 17 g PO QID PRN 07/23/20 10/30/20 sennosides-docusate sodium 1 tab PO BID PRN 07/23/20 10/30/20 [Senokot-S] docusate sodium 100 mg PO BID PRN 07/29/20 10/30/20 levetiracetam 1,500 mg PO BID 08/16/20 10/30/20 metoclopramide HCl 5 mg PO AC 09/04/20 10/30/20 lorazepam 1 mg PO TID PRN 10/26/20 10/30/20 Previous Rx's Medication Instructions Recorded morphine 15 mg PO Q12H #60 tab 07/16/20 magnesium chloride [Mag 64] 64 mg PO BID #60 tab 09/02/20 acetaminophen 325 mg PO Q6H PRN #90 tab 10/21/20 fludrocortisone 0.1 mg PO QAM #30 tab 10/21/20 midodrine 10 mg PO TID@0700,1300,1800 #90 tab 10/21/20 morphine 15 mg PO Q4H PRN #90 tab 10/21/20 naloxone 4 mg/actuation nasal spray 1 spray INTRANASAL Q3M PRN #2 ea 10/23/20 morphine 30 mg PO Q12 #90 tab 10/25/20 oxycodone 15 mg PO Q4H PRN #1 tab 10/25/20 cefuroxime axetil 250 mg PO BID #10 tab 10/27/20 potassium chloride 20 meq PO DAILY #14 tab 10/27/20 Results & Data (ED) Vital Signs Vital Signs - 24 hr 10/30/20 15:42 10/30/20 16:20 10/30/20 16:30 Temperature 37.2 C Temperature Source Temporal Artery Scan Pulse Rate 134 H 125 H Pulse Rate [Apical] 138 H Pulse Rhythm Regular Pulse Rhythm [Apical] Regular Pulse Strength Normal Pulse Strength [Apical] Normal Respiratory Rate 20 13 18 Respiratory Effort / Characteristics Non-Labored Spontaneous Non-Labored Spontaneous Respiratory Depth Normal Normal Respiratory Pattern Regular Blood Pressure 91/66 L 92/72 L Blood Pressure [Right Arm] 106/73 Blood Pressure Mean 74 78 Blood Pressure Mean [Right Arm] 84 Pulse Oximetry 95 94 Oxygen Delivery Method Room Air Room Air Sepsis Recent Fever Within 48 Hours No Sepsis New/Unexplained Change in Mental Status No Sepsis Action Taken by Nursing No Action Required 10/30/20 17:00 10/30/20 17:01 10/30/20 17:30 Temperature Temperature Source Pulse Rate 132 H 126 H Pulse Rate [Apical] Pulse Rhythm Pulse Rhythm [Apical] Pulse Strength Pulse Strength [Apical] Respiratory Rate 18 15 Respiratory Effort / Characteristics Respiratory Depth Respiratory Pattern Blood Pressure 99/70 L Blood Pressure [Right Arm] Blood Pressure Mean 79 Blood Pressure Mean [Right Arm] Pulse Oximetry Oxygen Delivery Method Room Air Room Air Sepsis Recent Fever Within 48 Hours Sepsis New/Unexplained Change in Mental Status Sepsis Action Taken by Nursing 10/30/20 18:00 Temperature Temperature Source Pulse Rate 117 H Pulse Rate [Apical] Pulse Rhythm Pulse Rhythm [Apical] Pulse Strength Pulse Strength [Apical] Respiratory Rate 13 Respiratory Effort / Characteristics Respiratory Depth Respiratory Pattern Blood Pressure 102/61 Blood Pressure [Right Arm] Blood Pressure Mean 74 Blood Pressure Mean [Right Arm] Pulse Oximetry Oxygen Delivery Method Sepsis Recent Fever Within 48 Hours Sepsis New/Unexplained Change in Mental Status Sepsis Action Taken by [facility] Medications Current Medication List: was personally reviewed by me Laboratory Data Attestation: I reviewed the patient's lab results. Result diagrams: 10/30/20 16:58 10/30/20 16:58 Lab Results 10/30/20 10/30/20 10/30/20 Range/Units 16:58 16:58 19:03 WBC 10.08 (4.8-10.8) K/uL RBC 3.94 L (4.2-5.4) M/uL Hgb 13.4 (12.0-16.0) g/dL Hct 38.5 (37-47) % MCV 97.7 (80-100) fL MCH 34.0 (25-34) pg MCHC 34.8 (32-36) g/dL RDW Std Deviation 51.2 H (36.4-46.3) fL RDW Coeff of Suri 14.3 (11.5-14.5) % Plt Count 199 (130-400) K/uL MPV 9.7 (7.4-10.4) fL Immature Gran % (Auto) 1.5 % Neut % (Auto) 75.4 % Lymph % (Auto) 15.5 % [place] % (Auto) 7.0 % Eos % (Auto) 0.4 % Baso % (Auto) 0.2 % Neut # (Auto) 7.60 H (1.4-6.5) K/uL Lymph # (Auto) 1.56 (1.2-3.4) K/uL [place] # (Auto) 0.71 H (0.11-0.59) K/uL Eos # (Auto) 0.04 (0-0.5) K/uL Baso # (Auto) 0.02 (0-0.2) K/uL Immature Gran # (Auto) 0.15 H (0.00-0.02) K/uL Sodium 137 (136-145) mmol/L Potassium 3.3 L (3.5-5.1) mmol/L Chloride 100 (98-107) mmol/L Carbon Dioxide 28 (21-32) mmol/L Anion Gap 9.0 (3-11) BUN 8 (7-18) mg/dl Creatinine 0.65 (0.6-1.2) mg/dl Est Cr Clr Drug Dosing 120.7 ml/min Est GFR ( Amer) 125.1 ml/min Est GFR (Non-Af Amer) 108.0 ml/min BUN/Creatinine Ratio 12.7 (10-20) Glucose 94 (70-99) mg/dl Lactate (0.4-2.0) mmol/L Calcium 9.4 (8.5-10.1) mg/dl Magnesium 1.8 (1.8-2.4) mg/dl Total Bilirubin 1.4 H (0.2-1) mg/dl AST 44 H (15-37) U/L ALT 99 H (12-78) U/L Alkaline Phosphatase 211 H (45-117) U/L Total Protein 8.0 (6.4-8.2) gm/dl Albumin 3.3 L (3.4-5.0) gm/dl Globulin 4.7 H (2.5-4.0) gm/dl Albumin/Globulin Ratio 0.7 L (0.9-2) Lipase 1742 H (73-393) U/L COVID-19 Eval Order Covid19 at [facility] SARS-CoV-2 (PCR) (Negative) 10/30/20 10/30/20 Range/Units 19:03 20:05 WBC (4.8-10.8) K/uL RBC (4.2-5.4) M/uL Hgb (12.0-16.0) g/dL Hct (37-47) % MCV (80-100) fL MCH (25-34) pg MCHC (32-36) g/dL RDW Std Deviation (36.4-46.3) fL RDW Coeff of Suri (11.5-14.5) % Plt Count (130-400) K/uL MPV (7.4-10.4) fL Immature Gran % (Auto) % Neut % (Auto) % Lymph % (Auto) % [place] % (Auto) % Eos % (Auto) % Baso % (Auto) % Neut # (Auto) (1.4-6.5) K/uL Lymph # (Auto) (1.2-3.4) K/uL [place]land # (Auto) (0.11-0.59) K/uL Eos # (Auto) (0-0.5) K/uL Baso # (Auto) (0-0.2) K/uL Immature Gran # (Auto) (0.00-0.02) K/uL Sodium (136-145) mmol/L Potassium (3.5-5.1) mmol/L Chloride (98-107) mmol/L Carbon Dioxide (21-32) mmol/L Anion Gap (3-11) BUN (7-18) mg/dl Creatinine (0.6-1.2) mg/dl Est Cr Clr Drug Dosing ml/min Est GFR ( Amer) ml/min Est GFR (Non-Af Amer) ml/min BUN/Creatinine Ratio (10-20) Glucose (70-99) mg/dl Lactate 1.0 (0.4-2.0) mmol/L Calcium (8.5-10.1) mg/dl Magnesium (1.8-2.4) mg/dl Total Bilirubin (0.2-1) mg/dl AST (15-37) U/L ALT (12-78) U/L Alkaline Phosphatase (45-117) U/L Total Protein (6.4-8.2) gm/dl Albumin (3.4-5.0) gm/dl Globulin (2.5-4.0) gm/dl Albumin/Globulin Ratio (0.9-2) Lipase (73-393) U/L COVID-19 Eval Order SARS-CoV-2 (PCR) NEGATIVE (Negative) Administered Medications Magnesium Sulfate/Dextrose (Magnesium Sulfate / D5w) 1 gm in 100 mls @ 50 mls/hr IV ONE ONE Stop: 10/31/20 00:14 Last Admin: 10/30/20 23:05 Dose: 50 mls/hr Documented by: [id number] Potassium Chloride 40 meq/ (Lactated Ringer's) 1,020 mls @ 200 mls/hr IV .Q5H6M KAMILA Stop: 10/31/20 22:14 Last Admin: 10/30/20 23:06 Dose: 200 mls/hr Documented by: [id number] Levetiracetam (Levetiracetam 500 Mg Tab) 1,500 mg PO BID KAMILA Stop: 11/29/20 22:59 Last Admin: 10/30/20 23:06 Dose: 1,500 mg Documented by: [id number] Magnesium Chloride (Magnesium Chloride 64mg Delayed Rel Tab) 64 mg PO BID KAMILA Stop: 11/29/20 22:59 Last Admin: 10/30/20 23:07 Dose: 64 mg Documented by: [id number] Oxycodone HCl (Oxycodone Hcl Ir 5 Mg Tab (Immediate Release)) 5 mg PO Q4H PRN PRN Reason: Pain Stop: 11/13/20 22:39 Last Admin: 10/30/20 23:18 Dose: 5 mg Documented by: [id number] Discontinued Medications Heparin Sodium (Porcine) (Heparin 100 Unit/Ml 5ml Flush) Confirm Administered Dose 5 ml .ROUTE .STK-MED ONE Stop: 10/30/20 19:07 Last Admin: 10/30/20 19:09 Dose: 5 ml Documented by: [id number] Hydromorphone HCl (Hydromorphone Inj 1 Mg/Ml Syringe) 1 mg IV Q15M PRN PRN Reason: Pain Stop: 11/13/20 16:23 Last Admin: 10/30/20 20:40 Dose: 1 mg Documented by: [id number] Admin: 10/30/20 19:09 Dose: 1 mg Documented by: [id number] Admin: 10/30/20 17:03 Dose: 1 mg Documented by: [id number] Sodium Chloride (Nss 1000ml) 1,000 mls @ 999 mls/hr IV .Q1H1M STA Stop: 10/30/20 17:24 Last Infusion: 10/30/20 18:03 Dose: 0 mls/hr Documented by: [id number] Admin: 10/30/20 17:02 Dose: 999 mls/hr Documented by: [id number] Potassium Chloride 20 meq/ (Lactated Ringer's) 1,010 mls @ 500 mls/hr IV .Q2H2M ONE Stop: 10/30/20 22:01 Last Infusion: 10/30/20 22:46 Dose: 0 mls/hr Documented by: [id number] Admin: 10/30/20 20:05 Dose: 500 mls/hr Documented by: [id number] Magnesium Sulfate/Dextrose (Magnesium Sulfate / D5w) 1 gm in 100 mls @ 50 mls/hr IV 2045 KAMILA Stop: 10/30/20 23:00 Last Infusion: 10/30/20 22:46 Dose: 0 mls/hr Documented by: [id number] Admin: 10/30/20 20:43 Dose: 50 mls/hr Documented by: [id number] Ketorolac Tromethamine (Ketorolac Tromethamine 15 Mg/Ml Vial) 15 mg IV NOW ONE Stop: 10/30/20 20:19 Last Admin: 10/30/20 20:41 Dose: 15 mg Documented by: [id number] Midodrine (Midodrine Hcl 10 Mg Tab) 10 mg PO NOW STA Stop: 10/30/20 20:19 Last Admin: 10/30/20 20:43 Dose: 10 mg Documented by: [id number] Morphine Sulfate (Morphine Sulfate Cr 15 Mg Tabcr) 30 mg PO NOW STA Stop: 10/30/20 20:19 Last Admin: 10/30/20 20:42 Dose: 15 mg Documented by: [id number] Ondansetron HCl (Ondansetron Inj 2 Mg/Ml 2 Ml Vial) 4 mg IV NOW STA Stop: 10/30/20 16:25 Last Admin: 10/30/20 17:03 Dose: 4 mg Documented by: [id number] Potassium Chloride (Potassium Chloride 20 Meq/15 Ml Udc) 40 meq PO NOW STA Stop: 10/30/20 20:20 Last Admin: 10/30/20 20:42 Dose: 40 meq Documented by: [id number] Imaging Data Radiologist's Impression: Chest X-Ray 10/30/20 16:24 XR chest 1V portable HISTORY: cancer pain COMPARISON: Chest 10/26/2020. FINDINGS: There is a 5 cm mass within the right midlung zone, unchanged. No pneumothorax. No pleural effusions. A left subclavian Port-A-Cath terminates at the SVC. Stable bilateral hilar prominence and mild diffuse interstitial thickening. The heart remains normal in size. Postoperative changes within the left humerus are partially visualized. IMPRESSION: No significant change compared to the prior study. Radiotracer of the 5 mm right lung mass. ACT 112: Negative or not required by law. Electronically signed by: Obed Rashid M.D. 10/30/2020 5:26 PM KUB X-Ray 10/30/20 16:24 KUB HISTORY: cancer pain COMPARISON: Abdomen and pelvis CT 10/22/2020. KUB 10/18/2020. FINDINGS: No dilated loops of bowel to suggest an obstruction. Moderate well- formed stool seen throughout the colon. A metallic common bile duct stent is un changed in position. Prior cholecystectomy. Pneumobilia, unchanged. No renal calculi. No ureteral calculi. Calcifications in the deep pelvis likely represent phleboliths. The right lung mass is again noted. No pneumoperitoneum or pneumatosis. IMPRESSION: 1. No evidence of bowel obstruction. 2. The metallic common bile duct stent appears in good position. ACT 112: Negative or not required by law. Electronically signed by: Obed Rashid M.D. 10/30/2020 5:25 PM Discharge Plan Visit Data Chief Complaint: Abdominal Pain Stated Complaint: ABD PAIN- DOC REF ED Provider: Alexy Asencio Discharge Problem: Epigastric abdominal pain, Adenocarcinoma of lung, Acute pancreatitis Patient Disposition: Admitted As Inpatient Condition: Good Discharge Instructions Interventions: ED Discharge Assessment Last Done: 10/30/20 20:12 Discharge Problem: Adenocarcinoma of lung Qualifiers: Laterality: unspecified laterality Qualified Code(s): C34.90 - Malignant neoplasm of unspecified part of unspecified bronchus or lung Acute pancreatitis Qualifiers: Pancreatitis type: unspecified pancreatitis type Acute pancreatitis complication: unspecified Qualified Code(s): K85.90 - Acute pancreatitis without necrosis or infection, unspecified
[2020-10-30] MEDS: HYDROmorphone INJ 1 MG/ML SYRINGE IV PRN ×3 (17:03→20:40)
[2020-10-30 17:23] LABS: Basophils # (auto) 0.02 K/uL (0-0.2); Basophils % (auto) 0.2 %; Eosinophils # (auto) 0.04 K/uL (0-0.5); Eosinophils % (auto) 0.4 %; Hematocrit (blood only) 38.5 % (37-47); Hemoglobin 13.4 g/dL (12.0-16.0); Immature Granulocytes # (auto) 0.15 K/uL (0.00-0.02); Immature Granulocytes % (auto) 1.5 %; Lymphocytes # (auto) 1.56 K/uL (1.2-3.4); Lymphocytes % (auto) 15.5 %; Mean Corpuscular Hgb Conc 34.8 g/dL (32-36); Mean Corpuscular Volume 97.7 fL (80-100); Mean Platelet Volume 9.7 fL (7.4-10.4); Monocytes # (auto) 0.71 K/uL (0.11-0.59); Neutrophils % (auto) 75.4 %; Platelet Count 199 K/uL (130-400); RDW Coefficient of Variation 14.3 % (11.5-14.5); RDW Standard Deviation 51.2 fL (36.4-46.3); Red Blood Count 3.94 M/uL (4.2-5.4); White Blood Count 10.08 K/uL (4.8-10.8)
--- NOTE | 2020-10-30 17:26 | XRay Report ---
KUB HISTORY: cancer pain COMPARISON: Abdomen and pelvis CT 10/22/2020. KUB 10/18/2020. FINDINGS: No dilated loops of bowel to suggest an obstruction. Moderate well-formed stool seen throug hout the colon. A metallic common bile duct stent is unchanged in position. Prior cholecystectomy. Pn eumobilia, unchanged. No renal calculi. No ureteral calculi. Calcifications in the deep pelvis likel y represent phleboliths. The right lung mass is again noted. No pneumoperitoneum or pneumatosis. IMPRESSION: 1. No evidence of bowel obstruction. 2. The metallic common bile duct stent appears in good position. ACT 112: Negative or not required by law. Electronically signed by: Obed Rashid M.D. 10/30/2020 5:25 PM
--- NOTE | 2020-10-30 17:27 | XRay Report ---
XR chest 1V portable HISTORY: cancer pain COMPARISON: Chest 10/26/2020. FINDINGS: There is a 5 cm mass within the right midlung zone, unchanged. No pneumothorax. No pleural effusions. A left subclavian Port-A-Cath terminates at the SVC. Stable bilateral hilar prominence and mild diffuse interstitial thickening. The heart remains normal in size. Postoperative changes within the left humerus are partially visualized. IMPRESSION: No significant change compared to the prior study. Radiotracer of the 5 mm right lung mass. ACT 112: Negative or not required by law. Electronically signed by: Obed Rashid M.D. 10/30/2020 5:26 PM
[2020-10-30 17:46] LABS: Albumin Level 3.3 gm/dl (3.4-5.0); BUN Creatinine Ratio 12.7 (10-20); Calcium 9.4 mg/dl (8.5-10.1); Creatinine Clr Calc Pharmacy 120.7 ml/min; Est GFR (African American) 125.1 ml/min; Potassium 3.3 mmol/L (3.5-5.1)
[2020-10-30 17:49] LABS: Albumin Globulin Ratio 0.7 (0.9-2); Bilirubin,Total 1.4 mg/dl (0.2-1); Globulin 4.7 gm/dl (2.5-4.0)
[2020-10-30] MEDS ORDERED: HEPARIN 100 UNIT/ML 5ML FLUSH ONE (19:06)
[2020-10-30 19:41] LABS: Magnesium 1.8 mg/dl (1.8-2.4)
[2020-10-30] MEDS ORDERED: POTASSIUM CHLORIDE 20 MEQ in LACTATED RINGER'S 1,000 ML IV ONE (20:00)
[2020-10-30] MEDS ORDERED: MoRPHine SULFATE CR 15 MG TABCR PO STA (20:18)
[2020-10-30] MEDS ORDERED: MIDODRINE HCL 10 MG TAB PO STA (20:18)
[2020-10-30] MEDS ORDERED: KETOROLAC TROMETHAMINE 15 MG/ML VIAL IV ONE (20:18)
[2020-10-30] MEDS ORDERED: POTASSIUM CHLORIDE 20 MEQ/15 ML UDC PO STA (20:19)
--- NOTE | 2020-10-30 20:32 | History & Physical Report ---
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 hx seizure DSO, stable on regimen history TIA as per records Left breast cancer status post mastectomy, history BRCA gene mutation positivity Hypokalemia secondary to poor p.o. intake, fludrocortisone possibly contributory Cancer pain on narcotics Orthostatic hypotension on fludrocortisone and midodrine Chronic anemia, hemoglobin better than baseline secondary to hemoconcentration Recent bronchitis improved on Ceftin Rx past tobacco abuse Medical telemetry Bowel rest, IVF, analgesia GI consult Re: Recurrent tumor pancreatitis Replace potassium Resume Decadron 4 mg BID for brain mets edema if patient's oncologist is agreeable. (Patient recently tapered off prednisone Rx started for possible chemotherapy hepatitis.) DVT prophylaxis. SCDs RE brain mets Full code Text document was generated using [employer] voice recognition software. It may contain grammatical or spelling errors. Kindly contact undersigned for clarification of any documentation item in question. History of Present Illness Chief Complaint: Worsening abdominal pain Primary Care Provider: Jasiel Fritz DO History obtained from patient and records. Medical history significant for NSCLC with brain mets status post stereotactic radiosurgery, brain tumor resection (05/2020) on steroid Rx on chemotherapy, history seizures, history TIA, breast cancer status post mastectomy, history BRCA gene mutation positivity, chronic anemia (baseline hemoglobin of 10-11), orthostatic hypotension on fludrocortisone and midodrine, past tobacco abuse. Multiple hospital admissions since May 2020. Recent confinement last week for recurrent pancreatitis. Patient seen by Pain management and Palliative care during confinement. Patient not ready for hospice as per documentation. Patient discharged on Ceftin for possible bronchitis symptoms. Prednisone course initiated by oncologist for possible chemotherapy hepatitis tapered off. Patient seen at PCPs office yesterday on follow-up. Patient got upset when PCP mentioned pancreatic spread of lung cancer. Patient told PCP that 2 people in the hospital told her she did not have pancreatic cancer during her last hospital stay. At home, patient noted worsening epigastric discomfort without nausea, emesis, fever, chills. Good BM. Patient staying away from greasy food. No recent EtOH intake. Intractable pain at the ER. 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 Allergies Allergy/AdvReac Type Severity Reaction Status Date / Time Penicillins Allergy Intermediate Swelling Verified 10/30/20 16:55 Home Medications Medication Instructions Recorded Confirmed Type folic acid 1 mg PO QAM 07/09/20 10/30/20 History ondansetron 8 mg PO Q8H PRN 07/09/20 10/30/20 History prochlorperazine maleate 10 mg PO Q6H PRN 07/09/20 10/30/20 History morphine 15 mg PO Q12H #60 tab 07/16/20 10/17/20 Rx polyethylene glycol 3350 [Miralax] 17 g PO QID PRN 07/23/20 10/30/20 History sennosides-docusate sodium 1 tab PO BID PRN 07/23/20 10/30/20 History [Senokot-S] docusate sodium 100 mg PO BID PRN 07/29/20 10/30/20 History levetiracetam 1,500 mg PO BID 08/16/20 10/30/20 History magnesium chloride [Mag 64] 64 mg PO BID #60 tab 09/02/20 10/30/20 Rx metoclopramide HCl 5 mg PO AC 09/04/20 10/30/20 History acetaminophen 325 mg PO Q6H PRN #90 tab 10/21/20 10/30/20 Rx fludrocortisone 0.1 mg PO QAM #30 tab 10/21/20 10/30/20 Rx midodrine 10 mg PO TID@0700,1300,1800 #90 tab 10/21/20 10/30/20 Rx morphine 15 mg PO Q4H PRN #90 tab 10/21/20 10/30/20 Rx naloxone 4 mg/actuation nasal spray 1 spray INTRANASAL Q3M PRN #2 ea 10/23/20 10/30/20 Rx morphine 30 mg PO Q12 #90 tab 10/25/20 10/30/20 Rx oxycodone 15 mg PO Q4H PRN #1 tab 10/25/20 10/30/20 Rx lorazepam 1 mg PO TID PRN 10/26/20 10/30/20 History cefuroxime axetil 250 mg PO BID #10 tab 10/27/20 10/30/20 Rx potassium chloride 20 meq PO DAILY #14 tab 10/27/20 10/30/20 Rx Past Med/Surg History Medical History Abdominal pain Adenocarcinoma of lung w/ extensive lymphadenopathy in the neck, chest, abdomen; brain and bilateral adrenal metastases Brain metastases BRCA gene positive Hx of breast cancer Palliative care encounter Seizure disorder Due to tumor edematous burden Surgical History H/O bilateral mastectomy H/O craniotomy 05/2020-right frontal craniotomy for brain tumor resection H/O: hysterectomy History of cholecystectomy Family History Aunt Breast cancer Social History Smoking Status: Former smoker Tobacco Type: Cigarettes packs per day: 1; Years Smoked: 23; Second Hand Exposure: No; Hx Alcohol Use: No Hx Substance Use: No Preferred Language: Paraguayan Communication Ability: Effective Turnaround Planner Required: No Beliefs That Will Affect Care: None marital status: Current Living Situation: Spouse How many Children do You have: 2 Other Information That Helps Us Care for You: No Feels Safe at Home: Yes Safety Concerns: Feels Safe At This Time Assistive Devices: None Review of Systems Review of Systems: As per HPI, all 10 systems reviewed, all other ROS negative Physical Exam Physical Exam: GENERAL: uncomfortable, tearful, no respiratory distress SKIN: Normal color, warm HEENT: Bespectacled, pale palpebral conjunctivae, no ptosis, dry buccal mucosa NECK : Supple, no tenderness CHEST : CTA, no tenderness HEART : Tachycardic, no obvious murmurs ABDOMEN: Some distention, epigastric tenderness EXTREMITIES : No LE swelling/tenderness, no other conspicuous deformities noted NEUROLOGIC : Coherent, no facial asymmetry, no other gross focality Results & Data Results & Data ([facility]) Vital Signs (Past 12 Hours) Vital Signs Temp Pulse Pulse Resp BP BP Pulse Ox 10/30/20 18:00 117 H 13 102/61 10/30/20 17:30 126 H 15 10/30/20 17:00 132 H 18 99/70 L 10/30/20 16:30 125 H 18 92/72 L 10/30/20 16:20 138 H 13 106/73 94 10/30/20 15:42 37.2 C 134 H 20 91/66 L 95 Laboratory Results Laboratory Results WBC 10.08 K/uL (4.8-10.8) 10/30/20 16:58 RBC 3.94 M/uL (4.2-5.4) L 10/30/20 16:58 Hgb 13.4 g/dL (12.0-16.0) 10/30/20 16:58 Hct 38.5 % (37-47) 10/30/20 16:58 MCV 97.7 fL (80-100) 10/30/20 16:58 MCH 34.0 pg (25-34) 10/30/20 16:58 MCHC 34.8 g/dL (32-36) 10/30/20 16:58 RDW Std Deviation 51.2 fL (36.4-46.3) H 10/30/20 16:58 RDW Coeff of Suri 14.3 % (11.5-14.5) 10/30/20 16:58 Plt Count 199 K/uL (130-400) 10/30/20 16:58 MPV 9.7 fL (7.4-10.4) 10/30/20 16:58 Immature Gran % (Auto) 1.5 % 10/30/20 16:58 Neut % (Auto) 75.4 % 10/30/20 16:58 Lymph % (Auto) 15.5 % 10/30/20 16:58 [place] % (Auto) 7.0 % 10/30/20 16:58 Eos % (Auto) 0.4 % 10/30/20 16:58 Baso % (Auto) 0.2 % 10/30/20 16:58 Neut # (Auto) 7.60 K/uL (1.4-6.5) H 10/30/20 16:58 Lymph # (Auto) 1.56 K/uL (1.2-3.4) 10/30/20 16:58 [place] # (Auto) 0.71 K/uL (0.11-0.59) H 10/30/20 16:58 Eos # (Auto) 0.04 K/uL (0-0.5) 10/30/20 16:58 Baso # (Auto) 0.02 K/uL (0-0.2) 10/30/20 16:58 Immature Gran # (Auto) 0.15 K/uL (0.00-0.02) H 10/30/20 16:58 Sodium 137 mmol/L (136-145) 10/30/20 16:58 Potassium 3.3 mmol/L (3.5-5.1) L 10/30/20 16:58 Chloride 100 mmol/L (98-107) 10/30/20 16:58 Carbon Dioxide 28 mmol/L (21-32) 10/30/20 16:58 Anion Gap 9.0 (3-11) 10/30/20 16:58 BUN 8 mg/dl (7-18) 10/30/20 16:58 Creatinine 0.65 mg/dl (0.6-1.2) 10/30/20 16:58 Est Cr Clr Drug Dosing 120.7 ml/min 10/30/20 16:58 Est GFR ( Amer) 125.1 ml/min 10/30/20 16:58 Est GFR (Non-Af Amer) 108.0 ml/min 10/30/20 16:58 BUN/Creatinine Ratio 12.7 (10-20) 10/30/20 16:58 Glucose 94 mg/dl (70-99) 10/30/20 16:58 Calcium 9.4 mg/dl (8.5-10.1) 10/30/20 16:58 Magnesium 1.8 mg/dl (1.8-2.4) 10/30/20 16:58 Total Bilirubin 1.4 mg/dl (0.2-1) H 10/30/20 16:58 AST 44 U/L (15-37) H 10/30/20 16:58 ALT 99 U/L (12-78) H 10/30/20 16:58 Alkaline Phosphatase 211 U/L (45-117) H 10/30/20 16:58 Total Protein 8.0 gm/dl (6.4-8.2) 10/30/20 16:58 Albumin 3.3 gm/dl (3.4-5.0) L 10/30/20 16:58 Globulin 4.7 gm/dl (2.5-4.0) H 10/30/20 16:58 Albumin/Globulin Ratio 0.7 (0.9-2) L 10/30/20 16:58 Lipase 1742 U/L (73-393) H 10/30/20 16:58 COVID-19 Eval Order Covid19 at [facility] 10/30/20 19:03 SARS-CoV-2 (PCR) NEGATIVE (Negative) 10/30/20 19:03 Impressions Chest X-Ray 10/30/20 16:24 XR chest 1V portable HISTORY: cancer pain COMPARISON: Chest 10/26/2020. FINDINGS: There is a 5 cm mass within the right midlung zone, unchanged. No pneumothorax. No pleural effusions. A left subclavian Port-A-Cath terminates at the SVC. Stable bilateral hilar prominence and mild diffuse interstitial thickening. The heart remains normal in size. Postoperative changes within the left humerus are partially visualized. IMPRESSION: No significant change compared to the prior study. Radiotracer of the 5 mm right lung mass. ACT 112: Negative or not required by law. Electronically signed by: Obed Rashid M.D. 10/30/2020 5:26 PM KUB X-Ray 10/30/20 16:24 KUB HISTORY: cancer pain COMPARISON: Abdomen and pelvis CT 10/22/2020. KUB 10/18/2020. FINDINGS: No dilated loops of bowel to suggest an obstruction. Moderate well- formed stool seen throughout the colon. A metallic common bile duct stent is unchanged in position. Prior cholecystectomy. Pneumobilia, unchanged. No renal calculi. No ureteral calculi. Calcifications in the deep pelvis likely represent phleboliths. The right lung mass is again noted. No pneumoperitoneum or pneumatosis. IMPRESSION: 1. No evidence of bowel obstruction. 2. The metallic common bile duct stent appears in good position. ACT 112: Negative or not required by law. Electronically signed by: Obed Rashid M.D. 10/30/2020 5:25 PM Code Status & VTE Plan VTE Prophylaxis Plan VTE Prophylaxis will be ordered: Yes (1) Acute pancreatitis Acute pancreatitis complication: unspecified Pancreatitis type: unspecified pancreatitis type Qualified Code(s): K85.90 - Acute pancreatitis without necrosis or infection, unspecified
[2020-10-30] MEDS ORDERED: MAGNESIUM SULFATE / D5W 1 GM/100 ML BAG IV SCH (20:45)
[2020-10-30] MEDS ORDERED: DOCUSATE SODIUM/SENNA 50/8.6MG TAB PO PRN (21:52)
[2020-10-30] MEDS ORDERED: ACETAMINOPHEN 325 MG TAB PO PRN (21:52)
[2020-10-30] MEDS ORDERED: DOCUSATE SODIUM 100 MG CAP PO PRN (21:52)
[2020-10-30] MEDS ORDERED: PROMETHAZINE HCL 12.5 MG in SODIUM CHLORIDE 0.9% 50 ML IV PRN (21:52)
[2020-10-30] MEDS ORDERED: POLYETHYLENE (MIRALAX) 17 GM PACK PO PRN (21:52)
[2020-10-30] MEDS ORDERED: MAGNESIUM SULFATE / D5W 1 GM/100 ML BAG IV ONE (22:15)
[2020-10-30] MEDS: levETIRAcetam 500 MG TAB PO SCH (23:06)
[2020-10-30] MEDS: POTASSIUM CHLORIDE 40 MEQ in LACTATED RINGER'S 1,000 ML IV SCH (23:06)
[2020-10-30] MEDS: MAGNESIUM CHLORIDE 64MG DELAYED REL TAB PO SCH (23:07)
[2020-10-30] MEDS: oxyCODONE HCL IR 5 MG TAB (IMMEDIATE RELEASE) PO PRN (23:18)
[2020-10-30] MEDS ORDERED: NALOXONE HCL INJ 1 MG/ML 2ML SYR INTNAS PRN (23:55)
[2020-10-31 05:04] LABS: Appearance Urine Clear (Clear); Bacteria Urine Automated Negative (Negative); Bilirubin Urine Negative (Negative); Blood Urine Negative (Negative); Color Urine Yellow; Epithelial Cell Urine Auto >30 /lpf (0-5); Glucose Urine UA Negative (Negative); Ketones Urine 1+ (Negative); Leukocyte Esterase Urine Trace (Negative); Nitrite Urine Negative (Negative); Protein Urine Trace (Negative); RBC Urine Automated 0-4 /hpf (0-4); Specific Gravity Urine 1.014 (1.000-1.030); Urobilinogen Urine Negative (Negative)
[2020-10-31] MEDS: POTASSIUM CHLORIDE 40 MEQ in LACTATED RINGER'S 1,000 ML IV SCH ×3 (06:02→19:41)
[2020-10-31] MEDS: HYDROmorphone INJ 0.5 MG/0.5 ML SYR IV PRN ×3 (06:06→21:54)
[2020-10-31] MEDS: LORazepam 1 MG TAB PO PRN (08:06)
[2020-10-31] MEDS: oxyCODONE HCL IR 5 MG TAB (IMMEDIATE RELEASE) PO PRN ×3 (08:06→19:40)
[2020-10-31] MEDS: levETIRAcetam 500 MG TAB PO SCH ×2 (08:09→20:19)
[2020-10-31] MEDS: MIDODRINE HCL 10 MG TAB PO SCH ×3 (08:10→17:01)
[2020-10-31] MEDS: FLUDROCORTISONE ACETATE 0.1 MG TAB PO SCH (08:10)
[2020-10-31] MEDS: FOLIC ACID 1 MG TAB PO SCH (08:11)
[2020-10-31] MEDS: MAGNESIUM CHLORIDE 64MG DELAYED REL TAB PO SCH ×2 (08:13→20:19)
[2020-10-31] MEDS: METOCLOPRAMIDE HCL 5 MG TABLET PO SCH ×3 (08:14→17:00)
[2020-10-31] MEDS ORDERED: Nursing to Pharmacy Communication SCH ×2 (08:15→20:00)
[2020-10-31 08:54] LABS: Basophils # (auto) 0.01 K/uL (0-0.2); Basophils % (auto) 0.1 %; Eosinophils # (auto) 0.05 K/uL (0-0.5); Eosinophils % (auto) 0.5 %; Hematocrit (blood only) 32.9 % (37-47); Hemoglobin 11.3 g/dL (12.0-16.0); Immature Granulocytes # (auto) 0.08 K/uL (0.00-0.02); Immature Granulocytes % (auto) 0.7 %; Lymphocytes # (auto) 0.86 K/uL (1.2-3.4); Mean Corpuscular Hemoglobin 33.2 pg (25-34); Mean Corpuscular Hgb Conc 34.3 g/dL (32-36); Mean Corpuscular Volume 96.8 fL (80-100); Mean Platelet Volume 9.4 fL (7.4-10.4); Monocytes # (auto) 0.74 K/uL (0.11-0.59); Monocytes % (auto) 6.9 %; Neutrophils # (auto) 9.04 K/uL (1.4-6.5); Neutrophils % (auto) 83.8 %; Platelet Count 169 K/uL (130-400); RDW Coefficient of Variation 14.2 % (11.5-14.5); White Blood Count 10.78 K/uL (4.8-10.8)
[2020-10-31] MEDS ORDERED: POTASSIUM CHLORIDE CRTAB 20 MEQ TABCR PO SCH (09:00)
[2020-10-31] MEDS: MoRPHine SULFATE CR 15 MG TABCR PO SCH ×2 (09:23→20:19)
[2020-10-31] MEDS: POTASSIUM CHLORIDE 20 MEQ/15 ML UDC PO SCH (09:23)
[2020-10-31 09:43] LABS: Albumin Globulin Ratio 0.7 (0.9-2); Albumin Level 2.6 gm/dl (3.4-5.0); BUN Creatinine Ratio 13.6 (10-20); Bilirubin,Total 1.4 mg/dl (0.2-1); Calcium 8.8 mg/dl (8.5-10.1); Creatinine Clr Calc Pharmacy 161.9 ml/min; Est GFR (African American) 137.3 ml/min; Est GFR (Non-African American) 118.5 ml/min; Potassium 4.2 mmol/L (3.5-5.1); Total Protein 6.6 gm/dl (6.4-8.2)
[2020-10-31] MEDS ORDERED: LEVALBUTEROL HCL 0.63 MG/3 ML NEB NEB PRN (09:56)
--- NOTE | 2020-10-31 10:24 | Gastrointestinal Consultation ---
Date of Consultation October 31, 2020 Assessment & Plan (1) Acute pancreatitis: (2) Metastatic cancer: (3) Abdominal pain: Pt is a 45 y/o female w hx of breast ca s/p mastectomy, metastatic lung ca to brain s/p stereotactic radiosurgery, resection, recently found mets to pancreas w biliary stricture s/p ERCP w metal stent placement on 10/17. She presented yesterday w c/o worsening abd pain, noted elevated Lipase w improving LFTs since stent placement. KUB w moderately formed stools, stent in good position. - LR IVF support - Bowel rest - Repeat CT abd/pelvis to assess stent patency - Bowel regimen: Miralax 17g daily - Recommend Pain Management consult for pain control Supervising Physician Co-Signing Physician Notes I performed a history and physical examination of the patient today, including specifically on physical exam - soft abdomen. I have discussed the patient's management with the advanced practitioner. Please refer to the nurse practitioner's note for the documented findings and plan of care. LFTs rising hence will need to evaluate for stent occlusion. CT scan today History of Present Illness Reason for Consultation: Recurrent Pancreatitis Requesting Physician: Dr. Dario Aguayo Attending Physician: Dr. Israel Gurrola History of Present Illness Pt is a 45 y/o female w hx of breast ca s/p mastectomy, metastatic lung ca to brain s/p stereotactic radiosurgery, resection, recently found mets to pancreas w biliary stricture s/p ERCP w metal stent placement on 10/17. She presented yesterday w c/o worsening abd pain. On eval, noted to have elevated Lipase and LFTs, though LFTs are improved from after her biliary stent was placed. KUB w moderately formed stools in colon, biliary stent in place. During pt's last admission for pancreatitis, she had been seen by Pain and Palliative services. Not ready for hospice yet. Her last chemo (Keytruda) was reported to be 3 weeks ago. Pt denies ETOH, tobacco uses since last Apr 2020. Denies illicit drugs. Allergies Allergy/AdvReac Type Severity Reaction Status Date / Time Penicillins Allergy Intermediate Swelling Verified 10/30/20 16:55 Home Medications Medication Instructions Recorded Confirmed Type folic acid 1 mg PO QAM 07/09/20 10/30/20 History ondansetron 8 mg PO Q8H PRN 07/09/20 10/30/20 History prochlorperazine maleate 10 mg PO Q6H PRN 07/09/20 10/30/20 History morphine 15 mg PO Q12H #60 tab 07/16/20 10/17/20 Rx polyethylene glycol 3350 [Miralax] 17 g PO QID PRN 07/23/20 10/30/20 History sennosides-docusate sodium 1 tab PO BID PRN 07/23/20 10/30/20 History [Senokot-S] docusate sodium 100 mg PO BID PRN 07/29/20 10/30/20 History levetiracetam 1,500 mg PO BID 08/16/20 10/30/20 History magnesium chloride [Mag 64] 64 mg PO BID #60 tab 09/02/20 10/30/20 Rx metoclopramide HCl 5 mg PO AC 09/04/20 10/30/20 History acetaminophen 325 mg PO Q6H PRN #90 tab 10/21/20 10/30/20 Rx fludrocortisone 0.1 mg PO QAM #30 tab 10/21/20 10/30/20 Rx midodrine 10 mg PO TID@0700,1300,1800 #90 tab 10/21/20 10/30/20 Rx morphine 15 mg PO Q4H PRN #90 tab 10/21/20 10/30/20 Rx naloxone 4 mg/actuation nasal spray 1 spray INTRANASAL Q3M PRN #2 ea 10/23/20 10/30/20 Rx morphine 30 mg PO Q12 #90 tab 10/25/20 10/30/20 Rx oxycodone 15 mg PO Q4H PRN #1 tab 10/25/20 10/30/20 Rx lorazepam 1 mg PO TID PRN 10/26/20 10/30/20 History cefuroxime axetil 250 mg PO BID #10 tab 10/27/20 10/30/20 Rx potassium chloride 20 meq PO DAILY #14 tab 10/27/20 10/30/20 Rx Patient History Medical History Abdominal pain Adenocarcinoma of lung w/ extensive lymphadenopathy in the neck, chest, abdomen; brain and bilateral adrenal metastases Brain metastases BRCA gene positive Hx of breast cancer Palliative care encounter Seizure disorder Due to tumor edematous burden Surgical History H/O bilateral mastectomy H/O craniotomy 05/2020-right frontal craniotomy for brain tumor resection H/O: hysterectomy History of cholecystectomy Family History Aunt Breast cancer Social History Smoking Status: Former smoker Tobacco Type: Cigarettes packs per day: 1; Years Smoked: 23; Second Hand Exposure: No; Hx Alcohol Use: No Hx Substance Use: No Preferred Language: Dutch Communication Ability: Effective Build Manager Required: No Beliefs That Will Affect Care: None marital status: Current Living Situation: Spouse How many Children do You have: 2 Other Information That Helps Us Care for You: No Feels Safe at Home: Yes Safety Concerns: Feels Safe At This Time Assistive Devices: None Review of Systems Review of Systems: All systems reviewed & are unremarkable except as noted in HPI & below Physical Exam Constitutional: WD/WN, vitals as above well groomed, cooperative and comfortable Eyes: PERRL, conjunctivae normal, anicteric sclerae ENMT: external ear and nose normal, oropharynx normal Respiratory: normal respiratory effort, lungs clear to auscultation Cardiovascular: RRR, no murmur, no edema Gastrointestinal (Abdomen): Inspection/Auscultation: + hypoactive bowel sounds Percussion/Palpation: + abdomen tender and abdomen soft Skin: no rashes, warm and dry no jaundice Psychiatric: A+Ox3, euthymic affect Lymphatic: no lymphedema Results & Data ([facility]) Vital Signs (Past 12 Hours) Vital Signs Temp Pulse Pulse Pulse Resp BP Pulse Ox 10/31/20 08:04 36.9 C 127 H 17 112/79 94 10/31/20 04:00 36.7 C 111 H 16 106/75 91 10/31/20 00:32 95 H 10/30/20 23:39 36.7 C 92 H 16 86/60 L 90 10/30/20 22:36 110 H (1) Acute pancreatitis Acute pancreatitis complication: unspecified Pancreatitis type: unspecified pancreatitis type Qualified Code(s): K85.90 - Acute pancreatitis without necrosis or infection, unspecified
[2020-10-31] MEDS: predniSONE 20 MG TAB PO SCH (11:03)
[2020-10-31] MEDS ORDERED: OPTIRAY 320 100ml IV ONE (13:36)
--- NOTE | 2020-10-31 14:16 | CT Scan Report ---
CT abd pelvis oral and IV con CLINICAL HISTORY: abd pain COMPARISON STUDY: 10/22/2020 TECHNIQUE: Patient was scanned following administration of dilute oral contrast, and in a dynamic hel ical fashion during intravenous administration of 94 cc of Optiray 320 A dose lowering technique was utilized adhering to the principles of ALARA. CT DOSE: 514.42 mGy.cm FINDINGS: Lower chest: There are bilateral breast implants. There is right middle lobe atelectasis. There are s ubtle patchy groundglass nodular opacities within the right lower lobe likely infectious/inflammatory . There is mild right basilar septal edema. There are small centrilobular nodules. Liver: There is a subtle 18 mm hypodense lesion within the lateral segment left hepatic lobe. There i s pneumobilia. The hepatic and portal veins appear patent. Gallbladder: Surgically absent. There is an indwelling biliary enteric stent. Spleen: Normal in size and attenuation. Pancreas: There is persistent dilatation of the main pancreatic duct which measures 6 mm. There is a distal pancreatic duct cut off sign. Adrenal glands: There are persistent bilateral adrenal masses. The right adrenal mass measures 26 mm. The left adrenal mass measures 27 mm. Kidneys: There are ill-defined areas of decreased right renal attenuation, suspicious for pyelonephri tis. Clinical follow-up recommended. Bowel: There are no transition zones to indicate bowel obstruction. The appendix appears normal. Ther e is no acute diverticulitis. There is moderate colonic stool. Peritoneum: There is no intraperitoneal free air or abdominal ascites. Vasculature: The abdominal aorta is normal in course and caliber. Adenopathy: There is a mildly enlarged portal lymph node. There are mildly enlarged mesenteric lymph nodes. There are mildly enlarged retroperitoneal lymph nodes. Pelvic viscera: The uterus appears surgically absent. There is a right sided posterior bladder nodule . Skeletal structures: No destructive osseous lesions are seen. IMPRESSION: 1. Patent biliary enteric stent with secondary pneumobilia 2. Persistent mild dilatation of pancreatic duct with a distal pancreatic duct cut off sign 3. Persistent mesenteric susanna hepatis and retroperitoneal lymphadenopathy 4. Persistent right posterior bladder nodule. 5. Ill-defined areas of decreased right renal attenuation suspicious for pyelonephritis. Clinical fol low-up recommended 6. Stable adrenal masses 7. Patchy groundglass nodular opacities within the right lower lobe, likely infectious/inflammatory ACT 112: Negative or not required by law. Electronically signed by: Axel Hook M.D. 10/31/2020 2:15 PM
[2020-10-31] MEDS: POLYETHYLENE (MIRALAX) 17 GM PACK PO SCH (14:26)
--- NOTE | 2020-10-31 16:12 | Hospitalist Progress Note ---
Date of Service October 31, 2020 Assessment & Plan (1) Acute pancreatitis: Acute on chronic pancreatitis Pancreatic mass Metastatic cancer -CT ABD:Patent biliary enteric stent with secondary pneumobilia. Persistent mild dilatation of pancreatic duct with a distal pancreatic duct cut off sign. P ersistent mesenteric susanna hepatis and retroperitoneal lymphadenopathy. Persistent right posterior bladder nodule. Ill-defined areas of decreased right renal attenuation suspicious for pyelonephritis. Clinical follow-up recommended. Stable adrenal masses. Patchy groundglass nodular opacities within the right lower lobe, likely infectious/inflammatory -Pain from pancreatic mass could be contributing as well -Lipase levels elevated Advance diet as tolerated IV fluids Continue bowel regimen Appreciate GI input Consulted pain management Suspected pyelonephritis Incidental finding on CT scan Obtain urine culture Empirically start on Rocephin Metastatic lung cancer H/O NSCLC Extensive lymphadenopathy to neck, chest, abdomen, brain metastasis and bilateral adrenal gland metastatic disease S/P stereotactic radiosurgery/brain tumor resection On chemotherapy On chronic Steroid therapy: Discussed with (on prednisone taper secondary to possible acute hepatitis previously. Advised to taper down prednisone in 2 week period) Orthostatic hypotension On fludrocortisone, midodrine Anemia of chronic disease Hb stable Monitor Hypokalemia Replace electrolytes as needed Monitor H/O Seizure Continue Keppra DVT Px: SCDs Re: Brain Mets Code Status Full Code Disposition Expect to discharge home when medically stable Admission and Anticipated Discharge Date Admission Date: October 30, 2020 Subjective Patient is seen and examined at bedside Complains of generalized abdominal pain Tearful during my encounter Denies chest pain, shortness of breath, dizziness, nausea, vomiting Also states having chronic cough Review of Systems Review of Systems: All systems reviewed & are unremarkable except as noted in HPI & below Physical Exam Physical Exam: Physical Exam: Vitals signs as noted above General Appearance:Moderately built and nourished, no apparent distress Head: normocephalic, Atraumatic Eyes: normal inspection, EOMI Neck: supple, Trachea midline. Left lateral neck tenderness-chronic Respiratory/Chest: Coarse breath sounds, +Port on Left side Cardiovascular: S1, S2, No murmur Abdomen/GI:Soft, generalized tender, Bowel sounds present, No guarding/rigidity Extremities/Musculoskeletal:normal inspection, no edema Neurologic/Psych:AAOX3, grossly no focal neurological deficits Skin: normal color, warm Results & Data Results & Data ([facility]) Vital Signs (Past 12 Hours) Vital Signs Temp Pulse Pulse Resp BP Pulse Ox 10/31/20 15:03 36.7 C 89 18 90/62 L 92 10/31/20 12:18 37.0 C 100 H 16 92/65 L 92 10/31/20 08:04 36.9 C 127 H 17 112/79 94 Laboratory Results Short CBC 10/30/20 10/31/20 Range/Units 16:58 08:38 WBC 10.08 10.78 (4.8-10.8) K/uL Hgb 13.4 11.3 L (12.0-16.0) g/dL Hct 38.5 32.9 L (37-47) % Plt Count 199 169 (130-400) K/uL BMP 10/30/20 10/31/20 16:58 08:38 Sodium 137 135 L Potassium 3.3 L 4.2 D Chloride 100 103 Carbon Dioxide 28 24 BUN 8 7 Creatinine 0.65 0.49 L Glucose 94 86 Calcium 9.4 8.8 Liver Function 10/30/20 10/31/20 Range/Units 16:58 08:38 Total Bilirubin 1.4 H 1.4 H (0.2-1) mg/dl AST 44 H 38 H (15-37) U/L ALT 99 H 73 (12-78) U/L Alkaline Phosphatase 211 H 172 H (45-117) U/L Albumin 3.3 L 2.6 L (3.4-5.0) gm/dl Urine 10/31/20 Range/Units 04:26 Urine Color Yellow Urine Appearance Clear (Clear) Urine pH 6.0 (4.5-7.5) Ur Specific [place] 1.014 (1.000-1.030) Urine Protein Trace H (Negative) Urine Glucose (UA) Negative (Negative) (1) Acute pancreatitis Acute pancreatitis complication: unspecified Pancreatitis type: unspecified pancreatitis type Qualified Code(s): K85.90 - Acute pancreatitis without necrosis or infection, unspecified
[2020-10-31] MEDS: cefTRIAXone SODIUM 2,000 MG in DEXTROSE 5% 50 ML IV SCH (17:00)
[2020-10-31] MEDS ORDERED: oxyCODONE HCL IR 5 MG TAB (IMMEDIATE RELEASE) PO STA (19:56)
[2020-11-01] MEDS: POTASSIUM CHLORIDE 40 MEQ in LACTATED RINGER'S 1,000 ML IV SCH ×4 (03:01→10:19)
[2020-11-01] MEDS: oxyCODONE HCL IR 5 MG TAB (IMMEDIATE RELEASE) PO PRN ×3 (04:18→10:51)
[2020-11-01] MEDS: HYDROmorphone INJ 0.5 MG/0.5 ML SYR IV PRN ×6 (04:23→21:17)
[2020-11-01 06:02] LABS: Hematocrit (blood only) 29.2 % (37-47); Hemoglobin 9.9 g/dL (12.0-16.0); Mean Corpuscular Hemoglobin 32.8 pg (25-34); Mean Corpuscular Hgb Conc 33.9 g/dL (32-36); Mean Corpuscular Volume 96.7 fL (80-100); Mean Platelet Volume 9.7 fL (7.4-10.4); Platelet Count 185 K/uL (130-400); RDW Coefficient of Variation 14.3 % (11.5-14.5); RDW Standard Deviation 50.7 fL (36.4-46.3); Red Blood Count 3.02 M/uL (4.2-5.4); White Blood Count 7.93 K/uL (4.8-10.8)
[2020-11-01 06:36] LABS: BUN Creatinine Ratio 12.7 (10-20); Blood Urea Nitrogen 4 mg/dl (7-18); Calcium 8.1 mg/dl (8.5-10.1); Carbon Dioxide 27 mmol/L (21-32); Chloride 105 mmol/L (98-107); Creatinine Clr Calc Pharmacy 255.9 ml/min; Est GFR (African American) > 150.0 ml/min; Est GFR (Non-African American) 137.8 ml/min; Glucose 73 mg/dl (70-99); Potassium 3.8 mmol/L (3.5-5.1); Sodium 137 mmol/L (136-145)
[2020-11-01 07:44] LABS: Albumin Level 2.4 gm/dl (3.4-5.0); Bilirubin Direct 0.4 mg/dl (0-0.2); Bilirubin,Total 0.9 mg/dl (0.2-1)
[2020-11-01] MEDS: FLUDROCORTISONE ACETATE 0.1 MG TAB PO SCH (07:47)
[2020-11-01] MEDS: predniSONE 20 MG TAB PO SCH (07:47)
[2020-11-01] MEDS: MIDODRINE HCL 10 MG TAB PO SCH ×3 (07:47→16:56)
[2020-11-01] MEDS: METOCLOPRAMIDE HCL 5 MG TABLET PO SCH ×3 (07:47→15:38)
[2020-11-01] MEDS: levETIRAcetam 500 MG TAB PO SCH ×2 (07:48→20:21)
[2020-11-01] MEDS: POTASSIUM CHLORIDE 20 MEQ/15 ML UDC PO SCH (07:48)
[2020-11-01] MEDS: MAGNESIUM CHLORIDE 64MG DELAYED REL TAB PO SCH ×2 (07:48→20:20)
[2020-11-01] MEDS: FOLIC ACID 1 MG TAB PO SCH (07:48)
[2020-11-01] MEDS: POLYETHYLENE (MIRALAX) 17 GM PACK PO SCH (07:49)
[2020-11-01] MEDS: MoRPHine SULFATE CR 15 MG TABCR PO SCH ×2 (08:24→20:20)
--- NOTE | 2020-11-01 08:47 | Gastroenterology Progress Note ---
Date of Service November 01, 2020 Assessment & Plan (1) Acute pancreatitis: (2) Metastatic cancer: (3) Abdominal pain: Pt is a 45 y/o female w hx of breast ca s/p mastectomy, metastatic lung ca to brain s/p stereotactic radiosurgery, resection, recently found mets to pancreas w biliary stricture s/p ERCP w metal stent placement on 10/17. She presented yesterday w c/o worsening abd pain, noted elevated Lipase w improving LFTs since stent placement. KUB w moderately formed stools, stent in good position. CT abd/pelvis showed stent is patent. Incidentally found possible pyelonephritis and infectious/inflammatory process in lungs - LR IVF support ; please decrease rate once pt is tolerating PO intake - CL diet; advance as tolerated to low fat - Bowel regimen: Miralax 17g daily - Defer pain management to primary team/Palliative. Of note, pt would like her pancreas mets diagnosis to not be told to family members. - Pls recall GI prn Admission and Anticipated Discharge Date Admission Date: October 30, 2020 Supervising Physician Co-Signing Physician Notes I have discussed the patient's management with the advanced practitioner. Pleas e refer to the nurse practitioner's note for the documented findings and plan of care. LFTs normalizing. Pancreatitis resolving,. Recall GI if needed. Subjective Pt reports still having abd pain and requests to speak to Palliative care team She moved bowels today - no signs of rectal bleeding or blood in stools Denies N/V. Review of Systems Review of Systems: All systems reviewed & are unremarkable except as noted in HPI & below Physical Exam Constitutional: WD/WN, vitals as above well groomed, cooperative and comfortable Eyes: PERRL, conjunctivae normal, anicteric sclerae ENMT: external ear and nose normal, oropharynx normal Respiratory: normal respiratory effort, lungs clear to auscultation Cardiovascular: RRR, no murmur, no edema Gastrointestinal (Abdomen): Inspection/Auscultation: + hypoactive bowel sounds Percussion/Palpation: + abdomen tender and abdomen soft Skin: no rashes, warm and dry no jaundice Psychiatric: A+Ox3, euthymic affect Lymphatic: no lymphedema Results & Data ([facility]) Vital Signs (Past 12 Hours) Vital Signs Temp Pulse Resp BP Pulse Ox 11/01/20 07:31 36.8 C 118 H 16 110/75 95 11/01/20 04:42 109/76 11/01/20 04:25 89/64 L 10/31/20 21:45 36.5 C 102 H 16 118/75 93 (1) Acute pancreatitis Acute pancreatitis complication: unspecified Pancreatitis type: unspecified pancreatitis type Qualified Code(s): K85.90 - Acute pancreatitis without necrosis or infection, unspecified
[2020-11-01] MEDS ORDERED: MoRPHine SULFATE IR 15 MG TAB (IMMEDIATE RELEASE) PO PRN (09:38)
--- NOTE | 2020-11-01 11:16 | Palliative Care Consultation ---
Date of Consultation November 01, 2020 Assessment & Plan (1) Palliative care encounter: This is a 45 year old female who presented to the [facility] with intractable abdominal pain. She has a history of breast cancer s/p mastectomy, metastatic lung cancer to brain s/p stereotactic radiosurgery, resection, and recent known pancreatic mets for which she had a ERCP with stent placed on September 26. Josi is well known to the palliative medicine service and we have been involved with all of her three admissions over the last few weeks. She follows Dr. Barillas from an oncology standpoint. Palliative Medicine was reconsulted to assist with goals of care and pain management. I met with Josi. She was tearful during my interaction. She very much wants to be at home with her family, but recognizes that her pain is priority. She received news from her outpatient provider that her cancer has spread to her pancreas. She is followed by Dr. Barillas from an oncology standpoint. I do think that the patient having a conversation with the oncologist will be helpful for her regarding decision making and her prognosis. I asked her if she was able to talk to her family about her diagnosis. Her does know about the pancreatic involvement, but not her two kids. I asked how the new information about her pancreatic involvement has affected her and she became upset. I asked if she would be willing to have her come in for a meeting all together and she declined. She said that her and her were fighting at home right before she came in so she is not talking to him right now. She has two grandchildren ages 2 and 4 and her face brightens considerably when she talks about them. As with prior hospitalization, she is clear that she does not want to discuss hospice and that her goal is to receive any treatment possible to prolong her life to spend time with her family. Pt to remain full code, will address. Discussed with hospitalist. (2) Abdominal pain: Tolerating Oxy ER 30 mg BID, will increase frequency to Q8 for long-acting effects. Has utilized FIVE doses of Dilaudid 1 mg IV over past 24 hours. She does appear to be fixated on Dilaudid and gets very upset when discussing discontinuing it. I talked with her again about the possibility of having a celiac plexus block, which she was adamant that she wanted to hold off doing for now. I asked if she was receptive to having pain management visit with her again and she reluctantly said yes. I talked to her about having a block and if pain management thought it was an option for her if she would be willing to do it if it meant improving her pain and staying out of the hospital and she said no. I talked with her about a Dilaudid LIC[employer]ED SALES ASSISTANT at home, but she is not quite ready for hospice and you cant be on a LICENSED SALES ASSISTANT pump at home without hospice services. She does agree that some of this is emotional pain. Will schedule her Oxy ER 30 mg PO Q8 with hopes that her PRN use decreases. (3) Pancreatic mass: (4) Adenocarcinoma of lung: Follows Dr. Barillas. I do have concerns that while she is able to make decisions and is understanding, I do worry that her brain mets may be interfering with her ability to truly understand the complexity of her illness. Laterality: unspecified laterality Qualified Code(s): C34.90 - Malignant neoplasm of unspecified part of unspecified bronchus or lung (5) Anxiety: She has history of anxiety which is exacerbated by her current medical problems. Continue Duloxetine for depression, anxiety and can additionally have pain management effect. History of Present Illness Reason for Consultation: Goals of Care and pain management Requesting Physician: Dr. Aguayo Attending Physician: Dario Aguayo MD History of Present Illness This is a 45 year old female who presented to the [facility] with intractable abdominal pain. She has a history of breast cancer s/p mastectomy, metastatic lung cancer to brain s/p stereotactic radiosurgery, resection, and recent known pancreatic mets for which she had a ERCP with stent placed on September 26. Josi is well known to the palliative medicine service and we have been involved with all of her three admissions over the last few weeks. She follows Dr. Barillas from an oncology standpoint. Palliative Medicine was reconsulted to assist with goals of care and pain management. Please see A/P for further details. Allergies Allergy/AdvReac Type Severity Reaction Status Date / Time Penicillins Allergy Intermediate Swelling Verified 10/30/20 16:55 Home Medications Medication Instructions Recorded Confirmed Type folic acid 1 mg PO QAM 07/09/20 10/30/20 History ondansetron 8 mg PO Q8H PRN 07/09/20 10/30/20 History prochlorperazine maleate 10 mg PO Q6H PRN 07/09/20 10/30/20 History morphine 15 mg PO Q12H #60 tab 07/16/20 10/17/20 Rx polyethylene glycol 3350 [Miralax] 17 g PO QID PRN 07/23/20 10/30/20 History sennosides-docusate sodium 1 tab PO BID PRN 07/23/20 10/30/20 History [Senokot-S] docusate sodium 100 mg PO BID PRN 07/29/20 10/30/20 History levetiracetam 1,500 mg PO BID 08/16/20 10/30/20 History magnesium chloride [Mag 64] 64 mg PO BID #60 tab 09/02/20 10/30/20 Rx metoclopramide HCl 5 mg PO AC 09/04/20 10/30/20 History acetaminophen 325 mg PO Q6H PRN #90 tab 10/21/20 10/30/20 Rx fludrocortisone 0.1 mg PO QAM #30 tab 10/21/20 10/30/20 Rx midodrine 10 mg PO TID@0700,1300,1800 #90 tab 10/21/20 10/30/20 Rx morphine 15 mg PO Q4H PRN #90 tab 10/21/20 10/30/20 Rx naloxone 4 mg/actuation nasal spray 1 spray INTRANASAL Q3M PRN #2 ea 10/23/20 10/30/20 Rx morphine 30 mg PO Q12 #90 tab 10/25/20 10/30/20 Rx oxycodone 15 mg PO Q4H PRN #1 tab 10/25/20 10/30/20 Rx lorazepam 1 mg PO TID PRN 10/26/20 10/30/20 History cefuroxime axetil 250 mg PO BID #10 tab 10/27/20 10/30/20 Rx potassium chloride 20 meq PO DAILY #14 tab 10/27/20 10/30/20 Rx Patient History Medical History (Updated 11/01/20 @ 19:15 by NICHO Ariza) Abdominal pain Adenocarcinoma of lung w/ extensive lymphadenopathy in the neck, chest, abdomen; brain and bilateral adrenal metastases Anxiety Brain metastases BRCA gene positive Hx of breast cancer Palliative care encounter Palliative care encounter Seizure disorder Due to tumor edematous burden Surgical History H/O bilateral mastectomy H/O craniotomy 05/2020-right frontal craniotomy for brain tumor resection H/O: hysterectomy History of cholecystectomy Family History Aunt Breast cancer Social History Smoking Status: Former smoker Tobacco Type: Cigarettes packs per day: 1; Years Smoked: 23; Second Hand Exposure: No; Hx Alcohol Use: No Hx Substance Use: No Preferred Language: Slovak Communication Ability: Effective 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 Beliefs That Will Affect Care: None marital status: Current Living Situation: Spouse How many Children do You have: 2 Other Information That Helps Us Care for You: No Feels Safe at Home: Yes Safety Concerns: Feels Safe At This Time Assistive Devices: Glasses Review of Systems Review of Systems: [place] System Assessment Scale: Pain: 3/3 SOB: 1/3 Depression: 2/3 Anxiety: 2/3 Tiredness: 1/3 lack of Appetite: 1/3 Palliative Performance Scale: 50% Physical Exam Constitutional: healthy appearing and cooperative ENMT: Nose: + dry nasal mucous membranes Respiratory: Auscultation: + diminished lung sounds Cardiovascular: RRR, no murmur, no edema Gastrointestinal (Abdomen): Percussion/Palpation: + abdomen tender and abdomen soft Skin: + pallor Psychiatric: Orientation: alert and oriented x 3 Results & Data ([facility]) Vital Signs (Past 12 Hours) Vital Signs Temp Pulse Resp BP Pulse Ox 11/01/20 07:31 36.8 C 118 H 16 110/75 95 11/01/20 04:42 109/76 11/01/20 04:25 89/64 L PG Care Time/CCT Total # of Minutes Spent Total Time Spent with Patient: Total time spent is greater than 50% in coordination of care (as documented) at patient's floor/unit and/or counseling patient: 100 minutes with > 50% of that time spent assessing the patient, discussing goals of care, evaluating symptom management, providing pain management and collaborating with IDT. Coding Level of Care Code 18148 Inpt Consult Level 4 Diagnoses Palliative care encounter Z51.5 Abdominal pain R10.9 Pancreatic mass K86.89 Adenocarcinoma of lung C34.90 Laterality: unspecified laterality Anxiety F41.9 Time Spent (min) 100
[2020-11-01] MEDS: LACTATED RINGER'S 1,000 ML IV SCH (13:33)
[2020-11-01] MEDS: cefTRIAXone SODIUM 2,000 MG in DEXTROSE 5% 50 ML IV SCH (16:18)
--- NOTE | 2020-11-01 16:22 | Hospitalist Progress Note ---
Date of Service November 01, 2020 Assessment & Plan (1) Acute pancreatitis: Acute on chronic pancreatitis Pancreatic mass Metastatic cancer -CT ABD:Patent biliary enteric stent with secondary pneumobilia. Persistent mild dilatation of pancreatic duct with a distal pancreatic duct cut off sign. Persistent mesenteric susanna hepatis and retroperitoneal lymphadenopathy. Persistent right posterior bladder nodule. Ill-defined areas of decreased right renal attenuation suspicious for pyelonephritis. Clinical follow-up recommended. Stable adrenal masses. Patchy groundglass nodular opacities within the right lower lobe, likely infectious/inflammatory -Pain from pancreatic mass could be contributing as well -Lipase levels elevated Decrease IV fluids Continue bowel regimen Appreciate GI input Pain control Advance to regular diet as tolerated Poor prognosis as per oncology Suspected pyelonephritis Incidental finding on CT scan Urine culture pending Continue Rocephin Day #2 Metastatic lung cancer H/O NSCLC Extensive lymphadenopathy to neck, chest, abdomen, brain metastasis and leroy ateral adrenal gland metastatic disease S/P stereotactic radiosurgery/brain tumor resection On chemotherapy On chronic Steroid therapy: Discussed with (on prednisone taper secondary to possible acute hepatitis previously. Advised to taper down prednisone in 2 week period) Appreciate palliative care input Poor prognosis as per oncology Orthostatic hypotension On fludrocortisone, midodrine Anemia of chronic disease Hb stable Monitor Hypokalemia Replace electrolytes as needed Monitor H/O Seizure Continue Keppra DVT Px: SCDs Re: Brain Mets Code Status Full Code Disposition Expect to discharge home when medically stable Admission and Anticipated Discharge Date Admission Date: October 30, 2020 Subjective Patient is seen and examined at bedside Denies any significant abdominal pain during my encounter Discussed with palliative care today Discussed with oncology today Updated patient's over the phone Patient requests to advance to regular diet Denies chest pain, shortness of breath, dizziness, nausea, vomiting Review of Systems Review of Systems: All systems reviewed & are unremarkable except as noted in HPI & below Physical Exam Physical Exam: Physical Exam: Vitals signs as noted above General Appearance:Moderately built and nourished, no apparent distress Head: normocephalic, Atraumatic Eyes: normal inspection, EOMI Neck: supple, Trachea midline. Left lateral neck tenderness-chronic Respiratory/Chest: Coarse breath sounds, +Port on Left side Cardiovascular: S1, S2, No murmur Abdomen/GI:Soft, non tender, Bowel sounds present, No guarding/rigidity Extremities/Musculoskeletal:normal inspection, no edema Neurologic/Psych:AAOX3, grossly no focal neurological deficits Skin: normal color, warm Results & Data Results & Data ([facility]) Vital Signs (Past 12 Hours) Vital Signs Temp Pulse Resp BP Pulse Ox 11/01/20 07:31 36.8 C 118 H 16 110/75 95 11/01/20 04:42 109/76 11/01/20 04:25 89/64 L Laboratory Results Short CBC 11/01/20 Range/Units 05:16 WBC 7.93 (4.8-10.8) K/uL Hgb 9.9 L (12.0-16.0) g/dL Hct 29.2 L (37-47) % Plt Count 185 (130-400) K/uL BMP 11/01/20 05:16 Sodium 137 Potassium 3.8 Chloride 105 Carbon Dioxide 27 BUN 4 L Creatinine 0.31 L Glucose 73 Calcium 8.1 L Liver Function 11/01/20 Range/Units 05:16 Total Bilirubin 0.9 D (0.2-1) mg/dl Direct Bilirubin 0.4 H (0-0.2) mg/dl AST 33 (15-37) U/L ALT 65 (12-78) U/L Alkaline Phosphatase 157 H (45-117) U/L Albumin 2.4 L (3.4-5.0) gm/dl (1) Acute pancreatitis Acute pancreatitis complication: unspecified Pancreatitis type: unspecified pancreatitis type Qualified Code(s): K85.90 - Acute pancreatitis without necrosis or infection, unspecified
[2020-11-01] MEDS: LORazepam 1 MG TAB PO PRN (20:20)
[2020-11-02] MEDS: oxyCODONE HCL IR 5 MG TAB (IMMEDIATE RELEASE) PO PRN ×4 (01:02→21:48)
[2020-11-02] MEDS: LACTATED RINGER'S 1,000 ML IV SCH ×2 (02:55→16:15)
[2020-11-02] MEDS: HYDROmorphone INJ 0.5 MG/0.5 ML SYR IV PRN ×2 (05:06→16:13)
--- NOTE | 2020-11-02 05:56 | Electrocardiogram Report ---
Test Reason : Blood Pressure : / mmHG Vent. Rate : 113 BPM Atrial Rate : 113 BPM P-R Int : 130 ms QRS Dur : 072 ms QT Int : 298 ms P-R-T Axes : 055 088 071 degrees QTc Int : 408 ms Sinus tachycardia Otherwise normal ECG When compared with ECG of 16-OCT-2020 23:08, No significant change was found Confirmed by Dillan Mckinney ([id number]) on 11/02/2020 5:55:58 AM Referred By: REFERRED SELF Confirmed By:Dillan Mckinney
[2020-11-02] MEDS: MoRPHine SULFATE CR 15 MG TABCR PO SCH ×2 (07:59→21:47)
[2020-11-02] MEDS: predniSONE 20 MG TAB PO SCH (08:00)
[2020-11-02] MEDS: MAGNESIUM CHLORIDE 64MG DELAYED REL TAB PO SCH ×2 (08:01→21:47)
[2020-11-02] MEDS: levETIRAcetam 500 MG TAB PO SCH ×2 (08:01→21:46)
[2020-11-02] MEDS: FLUDROCORTISONE ACETATE 0.1 MG TAB PO SCH (08:02)
[2020-11-02] MEDS: FOLIC ACID 1 MG TAB PO SCH (08:03)
[2020-11-02] MEDS: MIDODRINE HCL 10 MG TAB PO SCH ×3 (08:03→17:18)
[2020-11-02] MEDS: METOCLOPRAMIDE HCL 5 MG TABLET PO SCH ×3 (08:04→17:19)
[2020-11-02] MEDS: POLYETHYLENE (MIRALAX) 17 GM PACK PO SCH (08:05)
[2020-11-02 08:47] LABS: Hemoglobin 11.1 g/dL (12.0-16.0); Mean Corpuscular Hemoglobin 33.1 pg (25-34); Mean Corpuscular Hgb Conc 33.6 g/dL (32-36); Mean Corpuscular Volume 98.5 fL (80-100); Mean Platelet Volume 9.6 fL (7.4-10.4); Platelet Count 213 K/uL (130-400); RDW Coefficient of Variation 13.9 % (11.5-14.5); RDW Standard Deviation 49.6 fL (36.4-46.3); Red Blood Count 3.35 M/uL (4.2-5.4); White Blood Count 6.55 K/uL (4.8-10.8)
[2020-11-02] MEDS ORDERED: DULoxetine HCL 20 MG CAP PO SCH (09:00)
[2020-11-02 09:11] LABS: Calcium 9.6 mg/dl (8.5-10.1); Creatinine Clr Calc Pharmacy 188.9 ml/min; Est GFR (African American) 144.5 ml/min; Est GFR (Non-African American) 124.7 ml/min; Potassium 3.4 mmol/L (3.5-5.1)
[2020-11-02] MEDS ORDERED: POTASSIUM CHLORIDE CRTAB 20 MEQ TABCR PO ONE (09:54)
--- NOTE | 2020-11-02 10:38 | Palliative Care Progress Note ---
Date of Service November 02, 2020 Assessment & Plan (1) Palliative care encounter: I met with Josi. She was tearful during my interaction. She very much wants to be at home with her family, but recognizes that her pain is priority. She is followed by Dr. Barillas from an oncology standpoint. I do think that the patient having a conversation with the oncologist will be helpful for her regarding decision making and her life expectancy. Per some minimal conversation with Dr. Barillas over tiger text, it was made known that her prognosis is poor overall. Unclear what treatment options, if any, are available for the patient. Patient could benefit from a radiation oncology evaluation to determine if any palliative radiation would be beneficial for the patient. Patient is receptive to this referral being placed after discussion. I did call her , Esteban, and talked with him at length at [phone]. He said some days are good at home, some bad. He stated that she does get angry, irritable, and aggressive at times, while other times she is calm, tired, and sleeping restfully. Him and her sister, Kristine, will come today at 1430 for further discussion. Update: I met with Josi, Esteban, and Kristine in her room. We talked at length about her disease. Of course, we have not had oncology input regarding actual life expectancy; however, we focused on if we had a year left of life, how would we want that to look. She said it would be home with her family and going to [place] with her kids and grand kids. We discussed hospice and its ability to provide overall better pain management. A lot of questions answered regarding hospice which she was receptive to. She stated that she was to have a follow up MRI to determine success of brain radiation on 11/08, will have that done here in the hospital. Ordered today. Dr. Aaron Miller was consulted to determine if she would be a candidate for pancreatic palliative radiation. He offered her 9-10 fractions with anywhere from 15-75% success at assisting with pain management. He did not feel that this approach would decrease tumor burden. She is willing and wanting to pursue the radiation and afterwards, transition to hospice approached care. She is very concerned about her privacy at home and does not want her neighbors to know shes on hospice. We discussed code status, however, the whole conversation, while good, did become overwhelming. Patient can start hospice with being a full code. She is aware that going through hospice would mean not coming back to the hospital unless symptom and pain was left unresolved. She is also aware that she would stop going to her scheduled appointments. Patient to remain inpatient through the weekend and possibly start radiation on Thursday. To be dtermined if that will be inpatient or outpatient. Palliative Medicine will follow. (2) Abdominal pain: Tolerating Oxy ER 30 mg Q8 for long acting option. Has utilized FIVE doses of Dilaudid 1 mg IV over past 24 hours. She does appear to be fixated on Dilaudid and gets very upset when discussing discontinuing it. Pt adamantly against a celiac plexus block. She does agree that some of this is emotional pain. I discussed transitioning her to PO Dilaudid which she was receptive to; however, she said that it doesn't help her as much. (3) Pancreatic mass: (4) Adenocarcinoma of lung: Follows Dr. Barillas. (5) Anxiety: She has history of anxiety which is exacerbated by her current medical problems. Patient declining the Duloxetine despite its overall use for neuopathic pain. She does have Ativan ordered TID PRN. She has utilized a dose today during my encounter. (6) Brain metastases: Patient has received radiation of the brain. She was to have a follow up MRI to determine success of brain radiation on 11/08, will have that done here in the hospital. ORdered today. I do have concerns that while she is able to make decisions and is understanding, I do worry that her brain mets may be interfering with her ability to truly understand the complexity of her illness at various times. I discussed this with her , Esteban, over the phone. Admission and Anticipated Discharge Date Admission Date: October 30, 2020 Subjective I met with patient. She was resting, but arousable. Pt with emotional pain. Patient with physical pain. Pt denies N/V/D Multiple pharmacological options discussed with patient. See A/P for further details. Review of Systems Review of Systems: [place] System Assessment Scale: Pain: 3/3 SOB: 1/3 Depression: 2/3 Anxiety: 2/3 Tiredness: 1/3 lack of Appetite: 1/3 Palliative Performance Scale: 50% Physical Exam Constitutional: healthy appearing and cooperative ENMT: Nose: + dry nasal mucous membranes Respiratory: Auscultation: + diminished lung sounds Cardiovascular: RRR, no murmur, no edema Gastrointestinal (Abdomen): Percussion/Palpation: + abdomen tender and abdomen soft Skin: + pallor Psychiatric: Orientation: alert and oriented x 3 Results & Data ([facility]) Vital Signs (Past 12 Hours) Vital Signs Temp Pulse Resp BP Pulse Ox 11/02/20 08:07 36.6 C 110 H 18 107/76 94 11/01/20 22:49 36.7 C 76 16 102/68 91 PG Care Time/CCT Total # of Minutes Spent Total Time Spent with Patient: Total time spent is greater than 50% in coordination of care (as documented) at patient's floor/unit and/or counseling patient: 65 minutes with > 50% of that time spent assessing the patient, discussing goals of care, addressing pain management, and collaborating with IDT Coding Level of Care Code ADVNCD CARE PLAN ADDL 30 MIN Diagnoses Palliative care encounter Z51.5 Abdominal pain R10.9 Pancreatic mass K86.89 Adenocarcinoma of lung C34.90 Laterality: unspecified laterality Anxiety F41.9 Brain metastases C79.31 Time Spent (min) 65 (1) Adenocarcinoma of lung Laterality: unspecified laterality Qualified Code(s): C34.90 - Malignant neoplasm of unspecified part of unspecified bronchus or lung
[2020-11-02] MEDS ORDERED: HYDROmorphone HCL 2 MG TAB PO PRN (10:41)
[2020-11-02] MEDS: POTASSIUM CHLORIDE 20 MEQ/15 ML UDC PO SCH (10:46)
[2020-11-02] MEDS ORDERED: POTASSIUM CHLORIDE 20 MEQ/15 ML UDC PO ONE (11:15)
--- NOTE | 2020-11-02 14:19 | Radiation OncologyConsultation ---
Date of Consultation November 02, 2020 Assessment & Plan (1) Adenocarcinoma of lung: Assessment: Ms. Copeland is a 45-year-old female with a history of breast cancer and lung cancer with brain metastasis. The patient underwent stereotactic radiosurgery in May [address] Vail and Dr. Justice. The patient did have significant vasogenic edema involving the right temporal lobe metastasis and underwent a right temporal craniotomy by Dr. Justice in June 2020. The patient also has been receiving carboplatin pemetrexed and pembrolizumab underneath the supervision of Dr. Barillas in the outpatient setting. More recently, the patient was found to have metastatic disease to the pancreas and did have a biliary stent placed. The patient's abdominal pain has gotten significantly worse and the patient has been admitted to the hospital. Palliative care has seen the patient and discussed goals of care and at this point the patient still wants to consider all treatment options. Of note, there is some complexity with the care as the patient does not want specific family m embers to know that she has spread of cancer. I am now seeing the patient in consultation to discuss the role of radiation therapy. Recommendation: Palliative external beam radiation therapy to the pancreatic mass could potentially help with pain control. Please note, I did speak with the patient and then additional did make a phone call to the patient's sister, Carolina, to explain my assessment and plan. Plan: 1. Will await final decision from patient/family and primary medical team regarding radiation therapy. CT simulation could be scheduled for next Thursday with plan to start radiation therapy by either Thursday or Thursday. 2. Continue with current pain management protocol as per primary medical team and palliative care team. 3. Follow-up with medical oncology in the outpatient setting. 4. Patient and family encouraged to call us with any further questions or concerns. Rationale/Explanation of Treatment: I have explained the indications, alternatives, benefits, risks and side effects of radiation therapy to the abdomen. I have explained the most common side effects including but are not salazar ited to skin erythema, skin break down, hair loss, fibrosis, telengectesia, adhesion development, radiation pneumonitis, rib and bone fracture, renal failure, kidney disease, liver disease, liver failure, bowel obstruction, bowel perforation, urinary symptoms, nausea, vomiting, diarrhea, spinal cord myelopathy, anemia, fatigue and development of secondary malignancy. I also discussed that male patients may have issues with erections (potency) and infertility issues depending on their age and area of treatment. I have explained the CT simulation process and treatment planning. I explained what to expect before, during and after treatment on a regular basis. The patient understands and would be willing to consent to treatment. The patient and sister had multiple questions which were answered to their full satisfaction. Thank you for allowing us to participate in the care of this patient. This chart was completed in part utilizing [employer] Speech Voice Recognition software. Attempts were made to minimize the grammatical errors, random word insertions, pronoun errors and incomplete sentences. Any formal questions or concerns about the content, text or information contained within the body of this dictation should be directly addressed to the provider for clarification. Jane Miller MD Department of Radiation Oncology [facility] Laterality: unspecified laterality Qualified Code(s): C34.90 - Malignant neoplasm of unspecified part of unspecified bronchus or lung History of Present Illness Attending Physician: Dario Aguayo MD History of Present Illness 2006. Mastectomy for breast cancer. BRCA1 positive. 08/2007. Status post 4 cycles of AC chemotherapy. 05/11/2020. CT of chest. IMPRESSION: 1. 5.8 cm right upper lobe pulmonary mass which crosses the fissure and extends into the superior segment the right lower lobe 2. Pathologic mediastinal, hilar, and left axillary lymphadenopathy 3. Mildly enlarged upper abdominal lymph nodes. 05/12/2020. MRI brain. IMPRESSION: FINDINGS: Multiple enhancing lesions are noted in the supratentorial and infratentorial brain associated with perilesional edema. There are at least 6 lesions identified, detailed below. No hemorrhagic component associated with these lesions. There is no significant midline shift or hydrocephalus. Perfusion is non-diagnostic could be related to timing of contrast. 1. 1.6 x 1.5 cm enhancing lesion centered in the posterior right frontal lobe with significant surrounding vasogenic edema, series 22 image 103. Marked restricted diffusion is associated with this lesion, suggestive of high cellularity. 2. 0.8 mm enhancing lesion centered in the right inferior frontal lobe with surrounding vasogenic edema, series 22 image 105. 3. A 4 mm enhancing nodule is noted involving the anterior aspect of the left insular region, series 22, image 91. 4. 4.4 mm enhancing nodule is noted in the right putamen, series 22, image 78. 5. 1.4 x 1.4 cm enhancing lesion with 6 6 component centered in the right occipital lobe, series 22 image 48. 6. 6 mm enhancing nodule centered in the cerebellar vermis, series 22, image 34. Mul tiple intracranial metastatic lesions, as detailed above. No significant midline shift or hydrocephalus. 05/14/2020. Lung, right, fine-needle aspiration. Adenocarcinoma of the lung, poorly differentiated. ALK negative. PD-L1 no expression. Negative for EGFR mutations. Negative for ROS1 rearrangement. 05/29/2020. Stereotactic radiosurgery to multiple brain metastasis. [facility]. [facility] LINAC based. 6 lesions treated. 22 Gy. 1 fraction. 06/02/2020. MRI brain. IMPRESSION: Interval increase in size of supratentorial and infratentorial lesions since prior examination with a total of 8 lesions. The largest right frontal lobe precentral gyrus lesion is associated with significantly increased vasogenic edema and mass effect, resulting in 10 mm of [id number] midline shift. Findings are likely predominantly attributable to acute postradiation effects following recent SRS on 05/29/2020. 06/06/2020. Right frontal craniotomy. Metastatic adenocarcinoma of lung. 06/06/2020. MRI brain. IMPRESSION: Expected postoperative changes of right frontal tumor resection. 06/19/2020. CT of Abdomen/Pelvis. IMPRESSION: 1. Mild hepatic steatosis 2. No evidence of bowel obstruction. No evidence of free air 3. Normal appendix. No evidence of acute diverticulitis 4. Mild periportal, aortocaval, and mesenteric lymphadenopathy 5. Subtle nonspecific centrilobular pulmonary nodules 6. Mild left adrenal enlargement. 06/27/2020. PET/CT. IMPRESSION: Metabolically active right upper lobe pulmonary mass, with extensive lymphadenopathy in the neck, chest and abdomen, and bilateral adrenal metastases. 07/18/2020. Medical oncology follow-up. Recommendation is to proceed with first cycle of chemotherapy. Rescheduled due to issues with vascular access. 07/20/2020. Initiation of chemotherapy. Pembrolizumab, pemetrexed carboplatin. 08/06/2020. Patient admitted to [facility] due to seizure. Radiation oncology consultation placed. 08/06/2020. MRI of Brain. IMPRESSION: 1. Postsurgical changes of a right-sided craniotomy with a small postsurgical fluid collection subjacent to craniotomy site 2. There are at least 8 enhancing parenchymal lesions many associated with vasogenic edema, several of which are cystic with rim enhancement. The findings are viewed as highly suspicious for multifocal intracranial metastatic disease. 09/26/2020. Medical oncology progress note. Consider further chemotherapy. 07/05/2020 to 10/12/2020. Carboplatin, pemetrexed, pembrolizumab. 10/16/2020. CT of abdomen/pelvis. IMPRESSION: 1. Suboptimal examination without oral and IV contrast. 2. Findings are consistent with acute pancreatitis. Correlate with serum amylase/lipase levels. 3. Intra and extrahepatic biliary ductal dilatation is new from previous. A filling defect is suggested within the common bile duct and is concerning for choledocholithiasis. 4. There are 2 pulmonary and pleural-based nodules at the left lung base which measure up to 8 mm. These are pathologically indeterminant but new from 09/10/2020. 5. Bilateral adrenal metastases have not significantly significant changed from 09/10/2020. 6. Abdominal and retroperitoneal lymphadenopathy is unchanged to minimally increased as compared to 09/10/2020. 7. A bladder nodule is again suggested. This was better assessed on the prior contrast-enhanced examination. Bladder neoplasm remains the diagnosis of exclusion. 8. Additional findings as above. 10/17/2020. MRI cholangiopancreatography. MPRESSION: 1. High-grade strictures of the distal common hepatic duct and pancreatic duct. The double duct sign is suspicious for a centrally obstructing lesion. ERCP or endoscopic ultrasound might be considered in follow-up. 10/17/2020. ERCP. IMPRESSION: Common bile duct/distal common hepatic duct stricture. An biliary metallic stent was placed. 10/17/2020. Pancreas, head mass, endoscopic fine-needle aspiration. Metastatic carcinoma consistent with lung primary. 10/22/2020. CT of abdomen/pelvis. IMPRESSION: 1. Interval placement of a biliary enteric stent with secondary pneumobilia 2. Decreasing peripancreatic inflammation 3. Persistent mild dilatation the pancreatic duct with a distal pancreatic duct cut off sign 4. Tiny lower lobe centrilobular pulmonary nodules 5. Persistent mesenteric, susanna hepatis, and retroperitoneal lymphadenopathy 6. Mild focal wall thickening involving the right posterior bladder 7. Stable adrenal masses. 8. No evidence of bowel obstruction. No evidence of free ai 5. Normal appendix. No evidence of acute diverticulitis. 10/31/2020. Patient admitted to hospital. Patient having significant abdominal bloating. 10/31/2020. CT of abdomen/pelvis. IMPRESSION: 1. Patent biliary enteric stent with secondary pneumobilia 2. Persistent mild dilatation of pancreatic duct with a distal pancreatic duct cut off sign 3. Persistent mesenteric susanna hepatis and retroperitoneal lymphadenopathy 4. Persistent right posterior bladder nodule. 5. Ill-defined areas of decreased right renal attenuation suspicious for pyelonephritis. Clinical follow-up recommended 6. Stable adrenal masses 7. Patchy groundglass nodular opacities within the right lower lobe, likely i nfectious/inflammatory. 11/01/2020. Palliative care consultation. Patient currently in decision-making. Patient wants full code and still wants to consider all treatments. Pain medications were prescribed and recommended by palliative care team. Allergies Allergy/AdvReac Type Severity Reaction Status Date / Time Penicillins Allergy Intermediate Swelling Verified 10/30/20 16:55 Home Medications Medication Instructions Recorded Confirmed Type folic acid 1 mg PO QAM 07/09/20 10/30/20 History ondansetron 8 mg PO Q8H PRN 07/09/20 10/30/20 History prochlorperazine maleate 10 mg PO Q6H PRN 07/09/20 10/30/20 History morphine 15 mg PO Q12H #60 tab 07/16/20 10/17/20 Rx polyethylene glycol 3350 [Miralax] 17 g PO QID PRN 07/23/20 10/30/20 History sennosides-docusate sodium 1 tab PO BID PRN 07/23/20 10/30/20 History [Senokot-S] docusate sodium 100 mg PO BID PRN 07/29/20 10/30/20 History levetiracetam 1,500 mg PO BID 08/16/20 10/30/20 History magnesium chloride [Mag 64] 64 mg PO BID #60 tab 09/02/20 10/30/20 Rx metoclopramide HCl 5 mg PO AC 09/04/20 10/30/20 History acetaminophen 325 mg PO Q6H PRN #90 tab 10/21/20 10/30/20 Rx fludrocortisone 0.1 mg PO QAM #30 tab 10/21/20 10/30/20 Rx midodrine 10 mg PO TID@0700,1300,1800 #90 tab 10/21/20 10/30/20 Rx morphine 15 mg PO Q4H PRN #90 tab 10/21/20 10/30/20 Rx naloxone 4 mg/actuation nasal spray 1 spray INTRANASAL Q3M PRN #2 ea 10/23/20 10/30/20 Rx morphine 30 mg PO Q12 #90 tab 10/25/20 10/30/20 Rx oxycodone 15 mg PO Q4H PRN #1 tab 10/25/20 10/30/20 Rx lorazepam 1 mg PO TID PRN 10/26/20 10/30/20 History cefuroxime axetil 250 mg PO BID #10 tab 10/27/20 10/30/20 Rx potassium chloride 20 meq PO DAILY #14 tab 10/27/20 10/30/20 Rx Patient History Medical History (Updated 11/01/20 @ 19:15 by NICHO Ariza) Abdominal pain Adenocarcinoma of lung w/ extensive lymphadenopathy in the neck, chest, abdomen; brain and bilateral adrenal metastases Anxiety Brain metastases BRCA gene positive Hx of breast cancer Palliative care encounter Palliative care encounter Seizure disorder Due to tumor edematous burden Surgical History H/O bilateral mastectomy H/O craniotomy 05/2020-right frontal craniotomy for brain tumor resection H/O: hysterectomy History of cholecystectomy Family History Aunt Breast cancer Social History Smoking Status: Former smoker Tobacco Type: Cigarettes packs per day: 1; Years Smoked: 23; Second Hand Exposure: No; Hx Alcohol Use: No Hx Substance Use: No Preferred Language: Citizen Of [place] Communication Ability: Effective Teletype Or [place] Keyboard Operator Required: No Beliefs That Will Affect Care: None marital status: Current Living Situation: Spouse How many Children do You have: 2 Other Information That Helps Us Care for You: No Feels Safe at Home: Yes Safety Concerns: Feels Safe At This Time Assistive Devices: None Review of Systems Review of Systems: All systems reviewed & are unremarkable except as noted in HPI & below Patient continues to have pain. Pain better with medications. Physical Exam Constitutional: WD/WN, vitals as above + lethargic Patient recently received pain medications. Psychiatric: A+Ox3, euthymic affect
[2020-11-02] MEDS: LORazepam 1 MG TAB PO PRN (14:53)
[2020-11-02] MEDS: cefTRIAXone SODIUM 2,000 MG in DEXTROSE 5% 50 ML IV SCH (16:27)
--- NOTE | 2020-11-02 17:41 | Hospitalist Progress Note ---
Date of Service November 02, 2020 Assessment & Plan (1) Acute pancreatitis: Acute on chronic pancreatitis Pancreatic mass Metastatic cancer -CT ABD:Patent biliary enteric stent with secondary pneumobilia. Persistent mild dilatation of pancreatic duct with a distal pancreatic duct cut off sign. Persistent mesenteric susanna hepatis and retroperitoneal lymphadenopathy. Persistent right posterior bladder nodule. Ill-defined areas of decreased right renal attenuation suspicious for pyelonephritis. Clinical follow-up recommended. Stable adrenal masses. Patchy groundglass nodular opacities within the right lower lobe, likely infectious/inflammatory -Pain from pancreatic mass could be contributing as well -Lipase levels elevated Received IV fluids Continue bowel regimen Appreciate GI input Pain control Tolerates regular diet Poor prognosis as per oncology Appreciate radiation oncology input Plan for palliative radiation next week Suspected pyelonephritis Incidental finding on CT scan Urine culture No growth Received Rocephin Day #3 Metastatic lung cancer H/O NSCLC Extensive lymphadenopathy to neck, chest, abdomen, brain metastasis and bilateral adrenal gland metastatic disease S/P stereotactic radiosurgery/brain tumor resection On chemotherapy On chronic Steroid therapy: Discussed with (on prednisone taper secondary to possible acute hepatitis previously. Advised to taper down prednisone in 2 week period) Appreciate palliative care input Poor prognosis as per oncology Appreciate radiation oncology input Will repeat MRI Brain to assess any improvement with radiation from prior radiation therapy Orthostatic hypotension On fludrocortisone, midodrine Anemia of chronic disease Hb stable Monitor Hypokalemia Replace electrolytes as needed Monitor H/O Seizure Continue Keppra DVT Px: SCDs Re: Brain Mets Code Status Full Code Disposition Expect to discharge home when medically stable Admission and Anticipated Discharge Date Admission Date: October 30, 2020 Subjective Patient is seen and examined at bedside Tolerating diet Persistent pain Discussed with radiation oncology today Also discussed with palliative care Denies chest pain, shortness of breath, dizziness, nausea, vomiting Review of Systems Review of Systems: All systems reviewed & are unremarkable except as noted in HPI & below Physical Exam Physical Exam: Physical Exam: Vitals signs as noted above General Appearance:Moderately built and nourished, no apparent distress Head: normocephalic, Atraumatic Eyes: normal inspection, EOMI Neck: supple, Trachea midline. Left lateral neck tenderness-chronic Respiratory/Chest: Coarse breath sounds, +Port on Left side Cardiovascular: S1, S2, No murmur Abdomen/GI:Soft, non tender, Bowel sounds present, No guarding/rigidity Extremities/Musculoskeletal:normal inspection, no edema Neurologic/Psych:AAOX3, grossly no focal neurological deficits Skin: normal color, warm Results & Data Results & Data ([facility]) Vital Signs (Past 12 Hours) Vital Signs Temp Pulse Resp BP Pulse Ox 11/02/20 17:16 99/66 L 11/02/20 15:30 36.5 C 62 16 101/65 93 11/02/20 12:39 110/73 11/02/20 08:07 36.6 C 110 H 18 107/76 94 Laboratory Results Short CBC 11/02/20 Range/Units 08:18 WBC 6.55 (4.8-10.8) K/uL Hgb 11.1 L (12.0-16.0) g/dL Hct 33.0 L (37-47) % Plt Count 213 (130-400) K/uL BMP 11/02/20 08:18 Sodium 136 Potassium 3.4 L Chloride 102 Carbon Dioxide 26 BUN 3 L Creatinine 0.42 L Glucose 67 L Calcium 9.6 D (1) Acute pancreatitis Acute pancreatitis complication: unspecified Pancreatitis type: unspecified pancreatitis type Qualified Code(s): K85.90 - Acute pancreatitis without necrosis or infection, unspecified
[2020-11-02] MEDS ORDERED: LORazepam 0.5 MG/1 ML VIAL IV SCH (18:30)
[2020-11-02] MEDS: HEPARIN 100 UNIT/ML 5ML FLUSH FLUSH PRN (19:37)
[2020-11-02] MEDS ORDERED: GADOBUTROL 65ML VIAL IV ONE (20:25)
--- NOTE | 2020-11-02 21:29 | Magnetic Resonance Report ---
MRI OF THE BRAIN WITHOUT AND WITH IV CONTRAST CLINICAL HISTORY: Metastatic disease. Lung cancer. Headaches. COMPARISON STUDY: MRI of the brain August 06, 2020. Head CT September 04, 2020. TECHNIQUE: Utilizing a 1.5 Diana magnet and dedicated coil, multiplanar, multiecho imaging of the br ain was performed pre and postcontrast administration. IV administration of 8 mL of Gadavist contras t was uneventful. Thin cut T1 post contrast imaging was performed with multiplanar reformats. FINDINGS: There are no foci of restricted diffusion to suggest acute infarct. Right-sided craniotomy is noted. The operative bed extra-axial fluid collection shown on MRI of August 06, 2020 has resolved. Subcortical increased T2 signal within the subjacent right frontal lobe has slightly increased. Berry hero, associated enhancement has decreased since MRI of August 06, 2020. Faint residual enhancement wit hin the operative bed is noted. No new lesions are identified. There has been moderate decrease in si ze of the enhancing lesion shown on MRI of August 06, 2020. A ring-enhancing 9 mm lesion within the ri ght occipital lobe previously measured 1.2 cm. A 4 mm ring-enhancing left parafalcine lesion within t he parietal lobe on image 85 of 132 previously measured 6 mm. A 4 mm left frontal lobe lesion previou sly measured 5 mm. A 4 mm lesion within the right cerebellar hemisphere previously measured 7 mm. The re is no evidence for sinusitis. Ventricular system is normal. Basilar cisterns are patent. There are no extra-axial collections. Flow-voids for the major intracranial vessels are present. No calvarial lesions are identified. IMPRESSION: 1. No acute intracranial findings. 2. Interval decrease in size of the enhancing lesions shown on MRI of August 06, 2020, as described ab ove, consistent with a treatment response. No new lesions identified. No evidence for progressive met astatic disease. ACT 112: Negative or not required by law. Electronically signed by: German Grimaldo M.D. 11/02/2020 9:28 PM
[2020-11-03] MEDS: HYDROmorphone INJ 0.5 MG/0.5 ML SYR IV PRN ×3 (04:38→17:35)
[2020-11-03] MEDS: oxyCODONE HCL IR 5 MG TAB (IMMEDIATE RELEASE) PO PRN ×4 (06:18→21:25)
[2020-11-03] MEDS: HEPARIN 100 UNIT/ML 5ML FLUSH FLUSH PRN ×3 (06:19→17:35)
[2020-11-03 06:28] LABS: Hematocrit (blood only) 30.2 % (37-47); Hemoglobin 10.5 g/dL (12.0-16.0); Mean Corpuscular Hemoglobin 33.4 pg (25-34); Mean Corpuscular Hgb Conc 34.8 g/dL (32-36); Mean Corpuscular Volume 96.2 fL (80-100); Mean Platelet Volume 9.3 fL (7.4-10.4); Platelet Count 188 K/uL (130-400); RDW Coefficient of Variation 14.1 % (11.5-14.5); Red Blood Count 3.14 M/uL (4.2-5.4); White Blood Count 7.11 K/uL (4.8-10.8)
[2020-11-03 06:47] LABS: BUN Creatinine Ratio 6.7 (10-20); Calcium 9.1 mg/dl (8.5-10.1); Creatinine Clr Calc Pharmacy 198.3 ml/min; Est GFR (African American) 146.8 ml/min; Est GFR (Non-African American) 126.7 ml/min; Potassium 3.3 mmol/L (3.5-5.1)
[2020-11-03] MEDS: METOCLOPRAMIDE HCL 5 MG TABLET PO SCH ×3 (07:40→16:32)
[2020-11-03] MEDS: MIDODRINE HCL 10 MG TAB PO SCH ×3 (07:42→16:35)
[2020-11-03] MEDS: MoRPHine SULFATE CR 15 MG TABCR PO SCH ×2 (08:06→21:25)
[2020-11-03] MEDS: levETIRAcetam 500 MG TAB PO SCH ×2 (08:07→21:24)
[2020-11-03] MEDS: MAGNESIUM CHLORIDE 64MG DELAYED REL TAB PO SCH ×2 (08:08→21:25)
[2020-11-03] MEDS: predniSONE 20 MG TAB PO SCH (08:08)
[2020-11-03] MEDS: FLUDROCORTISONE ACETATE 0.1 MG TAB PO SCH (08:09)
[2020-11-03] MEDS: FOLIC ACID 1 MG TAB PO SCH (08:09)
[2020-11-03] MEDS: POTASSIUM CHLORIDE 20 MEQ/15 ML UDC PO SCH (08:10)
[2020-11-03] MEDS: POLYETHYLENE (MIRALAX) 17 GM PACK PO SCH (08:12)
[2020-11-03] MEDS: LORazepam 1 MG TAB PO PRN (08:13)
--- NOTE | 2020-11-03 14:17 | Hospitalist Progress Note ---
Date of Service November 03, 2020 Assessment & Plan (1) Acute pancreatitis: Acute on chronic pancreatitis Pancreatic mass Metastatic cancer -CT ABD:Patent biliary enteric stent with secondary pneumobilia. Persistent mild dilatation of pancreatic duct with a distal pancreatic duct cut off sign. Persistent mesenteric susanna hepatis and retroperitoneal lymphadenopathy. Persistent right posterior bladder nodule. Ill-defined areas of decreased right renal attenuation suspicious for pyelonephritis. Clinical follow-up recommended. Stable adrenal masses. Patchy groundglass nodular opacities within the right lower lobe, likely infectious/inflammatory -Pain from pancreatic mass could be contributing as well -Lipase levels elevated Received IV fluids Continue bowel regimen Appreciate GI input Pain control Tolerates regular diet Poor prognosis as per oncology Appreciate radiation oncology input Plan for palliative radiation next week Suspected pyelonephritis Incidental finding on CT scan Urine culture No growth Received Rocephin Day #3 Metastatic lung cancer H/O NSCLC Extensive lymphadenopathy to neck, chest, abdomen, brain metastasis and bilateral adrenal gland metastatic disease S/P stereotactic radiosurgery/brain tumor resection On chemotherapy On chronic Steroid therapy: Discussed with (on prednisone taper secondary to possible acute hepatitis previously. Advised to taper down prednisone in 2 week period) Appreciate palliative care input Poor prognosis as per oncology Appreciate radiation oncology input Will repeat MRI Brain to assess any improvement with radiation from prior radiation therapy Orthostatic hypotension On fludrocortisone, midodrine Anemia of chronic disease Hb stable Monitor Hypokalemia Replace electrolytes as needed Monitor H/O Seizure Continue Keppra DVT Px: SCDs Re: Brain Mets Code Status Full Code Disposition Expect to discharge home when medically stable Admission and Anticipated Discharge Date Admission Date: October 30, 2020 Subjective Patient is seen and examined at bedside Tolerating diet Persistent pain Discussed with radiation oncology today Also discussed with palliative care Denies chest pain, shortness of breath, dizziness, nausea, vomiting Results & Data Results & Data ([facility]) Vital Signs (Past 12 Hours) Vital Signs Temp Pulse Resp BP Pulse Ox 11/03/20 11:37 83 92/60 L 11/03/20 07:32 36.7 C 102 H 17 111/74 95 (1) Acute pancreatitis Acute pancreatitis complication: unspecified Pancreatitis type: unspecified pancreatitis type Qualified Code(s): K85.90 - Acute pancreatitis without necrosis or infection, unspecified
[2020-11-04] MEDS: HYDROmorphone INJ 1 MG/ML SYRINGE IV PRN ×7 (01:30→21:29)
[2020-11-04] MEDS: HEPARIN 100 UNIT/ML 5ML FLUSH FLUSH PRN ×8 (01:30→21:28)
[2020-11-04] MEDS: oxyCODONE HCL IR 5 MG TAB (IMMEDIATE RELEASE) PO PRN ×4 (02:55→23:21)
[2020-11-04] MEDS: METOCLOPRAMIDE HCL 5 MG TABLET PO SCH ×3 (07:22→16:42)
[2020-11-04] MEDS: MIDODRINE HCL 10 MG TAB PO SCH ×3 (07:23→16:45)
[2020-11-04] MEDS: guaiFENesin/CODEINE 100MG/10MG 5ML UDC PO PRN ×3 (07:59→21:27)
[2020-11-04] MEDS: guaiFENesin 600 MG TABCR PO SCH ×2 (09:32→21:22)
[2020-11-04] MEDS: POLYETHYLENE (MIRALAX) 17 GM PACK PO SCH (09:32)
[2020-11-04] MEDS: FOLIC ACID 1 MG TAB PO SCH (09:33)
[2020-11-04] MEDS: FLUDROCORTISONE ACETATE 0.1 MG TAB PO SCH (09:33)
[2020-11-04] MEDS: MoRPHine SULFATE CR 15 MG TABCR PO SCH ×2 (09:33→21:28)
[2020-11-04] MEDS: levETIRAcetam 500 MG TAB PO SCH ×2 (09:33→21:22)
[2020-11-04] MEDS: predniSONE 20 MG TAB PO SCH (09:33)
[2020-11-04] MEDS: MAGNESIUM CHLORIDE 64MG DELAYED REL TAB PO SCH ×2 (09:33→21:22)
[2020-11-04] MEDS: POTASSIUM CHLORIDE 20 MEQ/15 ML UDC PO SCH (09:38)
--- NOTE | 2020-11-04 13:46 | Palliative Care Progress Note ---
Date of Service November 04, 2020 Assessment & Plan (1) Epigastric abdominal pain: With pancreatic cancer. She does have neuropathic pain by description. She has declined discussion with pain management about celiac plexus block. Today we discussed other adjuvants such as gabapentin as well as using methadone for NMDA receptor coverage. 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 We discussed difference in dosage and importance of NMDA receptors for neuropathic pain. She is willing to discuss further but wants her family to be present. We will have family meeting tomorrow at 2pm. For now, continue current opioid dosing. (2) Anxiety: Per her report she is very anxious and this is likely contributing to her pain. She has been using lorazepam with three doses in last 24 hours. (3) Back pain: With frequent coughing and lung cancer. She feels this is the most prominent pain at this time but that it has improved since last night. Will monitor prn use and discuss further at family meeting tomorrow. (4) Constipation: She declines miralax or enema. Senna is ordered prn. (5) Palliative care encounter: Josi has had discussion about hospice care previously but is not willing to discuss further without her family present. She has expressed her desire to go to [employer] with her grandchildren and wanting more time with her family. Admission and Anticipated Discharge Date Admission Date: October 30, 2020 Subjective Josi reports feeling tired but says that pain is easing up a little. She had severe pain in her back and chest with coughing last night. She continues to have band like pain across her upper abdomen. She has had 240mg OME in the last 24 hours with 180mg of prn opioid. Review of Systems Review of Systems: [place] Symptom Assessment Scale Pain 2/3 Dyspnea 1/3 Nausea 0/3 Anxiety 2/3 Fatigue 2/3 Palliative Performance Score 50% Physical Exam Constitutional: no acute distress tired appearing ENMT: Mouth: oral mucous membranes not dry Respiratory: normal respiratory effort; no labored breathing Gastrointestinal (Abdomen): Inspection/Auscultation: abdomen not distended Musculoskeletal: Extremities: extremities normal to inspection Neurologic: awake; not confused Results & Data ([facility]) Vital Signs (Past 12 Hours) Vital Signs Temp Pulse Resp BP Pulse Ox 11/04/20 09:52 84 18 97 11/04/20 07:00 98.1 F 74 16 89/57 L 90 PG Care Time/CCT Total # of Minutes Spent Total Time Spent with Patient: Total time spent is greater than 50% in coordination of care (as documented) at patient's floor/unit and/or counseling patient: total time spent 35 minutes with more than 50% of time spent on symptom management, patient education about opioids Coding Level of Care Code 73504 Subseq Hosp Care Lvl 3 Diagnoses Epigastric abdominal pain R10.13 Anxiety F41.9 Back pain M54.9 Constipation K59.00 Palliative care encounter Z51.5
[2020-11-04] MEDS: LORazepam 1 MG TAB PO PRN (14:51)
--- NOTE | 2020-11-05 00:15 | Hospitalist Progress Note ---
Date of Service November 05, 2020 Assessment & Plan (1) Acute pancreatitis: Acute on chronic pancreatitis Pancreatic mass Metastatic cancer -CT ABD:Patent biliary enteric stent with secondary pneumobilia. Persistent mild dilatation of pancreatic duct with a distal pancreatic duct cut off sign. Persistent mesenteric susanna hepatis and retroperitoneal lymphadenopathy. Persistent right posterior bladder nodule. Ill-defined areas of decreased right renal attenuation suspicious for pyelonephritis. Clinical follow-up recommended. Stable adrenal masses. Patchy groundglass nodular opacities within the right lower lobe, likely infectious/inflammatory -Pain from pancreatic mass could be contributing as well -Lipase levels elevated Received IV fluids Continue bowel regimen Appreciate GI input Pain control Tolerates regular diet Poor prognosis as per oncology Appreciate radiation oncology input Plan for palliative radiation next week Suspected pyelonephritis Incidental finding on CT scan Urine culture No growth Received Rocephin Day #3 Metastatic lung cancer H/O NSCLC Extensive lymphadenopathy to neck, chest, abdomen, brain metastasis and bilateral adrenal gland metastatic disease S/P stereotactic radiosurgery/brain tumor resection On chemotherapy On chronic Steroid therapy: Discussed with (on prednisone taper secondary to possible acute hepatitis previously. Advised to taper down prednisone in 2 week period) Appreciate palliative care input Poor prognosis as per oncology Appreciate radiation oncology input Will repeat MRI Brain to assess any improvement with radiation from prior radiation therapy Orthostatic hypotension On fludrocortisone, midodrine Anemia of chronic disease Hb stable Monitor Hypokalemia Replace electrolytes as needed Monitor H/O Seizure Continue Keppra DVT Px: SCDs Re: Brain Mets Code Status Full Code Disposition Expect to discharge home when medically stable Admission and Anticipated Discharge Date Admission Date: October 30, 2020 Subjective Patient is seen and examined at bedside pain better controlled after increasing the frequency of Iv Dilaudid cough has improved which also helped to reduce the abdominal and chest pain no fever or chills offers no other complains Results & Data Results & Data ([facility]) Vital Signs (Past 12 Hours) Vital Signs Temp Pulse Resp BP Pulse Ox 11/04/20 23:12 36.7 C 89 16 104/71 93 11/04/20 16:43 107/72 (1) Acute pancreatitis Acute pancreatitis complication: unspecified Pancreatitis type: unspecified pancreatitis type Qualified Code(s): K85.90 - Acute pancreatitis without necrosis or infection, unspecified
[2020-11-05] MEDS: LORazepam 1 MG TAB PO PRN ×2 (01:35→13:10)
[2020-11-05] MEDS: HYDROmorphone INJ 1 MG/ML SYRINGE IV PRN ×7 (01:38→23:07)
[2020-11-05] MEDS: HEPARIN 100 UNIT/ML 5ML FLUSH FLUSH PRN ×9 (01:38→23:08)
[2020-11-05] MEDS: oxyCODONE HCL IR 5 MG TAB (IMMEDIATE RELEASE) PO PRN (04:25)
[2020-11-05] MEDS ORDERED: HYDROmorphone INJ 0.5 MG/0.5 ML SYR IV STA (05:46)
[2020-11-05] MEDS: guaiFENesin/CODEINE 100MG/10MG 5ML UDC PO PRN (06:30)
[2020-11-05] MEDS: METOCLOPRAMIDE HCL 5 MG TABLET PO SCH ×3 (08:30→18:09)
[2020-11-05] MEDS: FOLIC ACID 1 MG TAB PO SCH (08:31)
[2020-11-05] MEDS: FLUDROCORTISONE ACETATE 0.1 MG TAB PO SCH (08:31)
[2020-11-05] MEDS: MIDODRINE HCL 10 MG TAB PO SCH ×3 (08:31→18:08)
[2020-11-05] MEDS: MAGNESIUM CHLORIDE 64MG DELAYED REL TAB PO SCH ×2 (08:32→22:27)
[2020-11-05] MEDS: levETIRAcetam 500 MG TAB PO SCH ×2 (08:32→22:26)
[2020-11-05] MEDS: guaiFENesin 600 MG TABCR PO SCH ×2 (08:32→22:25)
[2020-11-05] MEDS: predniSONE 20 MG TAB PO SCH (08:33)
[2020-11-05] MEDS: POTASSIUM CHLORIDE 20 MEQ/15 ML UDC PO SCH (08:33)
[2020-11-05] MEDS: MoRPHine SULFATE CR 15 MG TABCR PO SCH ×2 (08:38→22:28)
[2020-11-05] MEDS: POLYETHYLENE (MIRALAX) 17 GM PACK PO SCH (08:38)
[2020-11-05] MEDS ORDERED: NALOXONE HCL 0.4 MG/1 ML VIAL/CARP IV PRN (09:31)
[2020-11-05] MEDS ORDERED: HYDROmorphone PCA 30 MG/30 ML IV PRN (09:31)
[2020-11-05] MEDS ORDERED: SODIUM CHLORIDE 0.9% 1000ML 1,000 ML IV SCH (09:45)
[2020-11-05] MEDS ORDERED: HYDROmorphone INJ 1 MG/ML SYRINGE ONE (10:46)
[2020-11-05] MEDS ORDERED: oxyCODONE HCL IR 5 MG TAB (IMMEDIATE RELEASE) PO PRN (13:02)
--- NOTE | 2020-11-05 15:59 | Hospitalist Progress Note ---
Date of Service November 05, 2020 Assessment & Plan (1) Acute pancreatitis: Metastatic Pancreatic mass /cancer -CT ABD:Patent biliary enteric stent with secondary pneumobilia. Persistent mild dilatation of pancreatic duct with a distal pancreatic duct cut off sign. Persistent mesenteric susanna hepatis and retroperitoneal lymphadenopathy. Persistent right posterior bladder nodule. Ill-defined areas of decreased right renal attenuation suspicious for pyelonephritis. Clinical follow-up recommended. Stable adrenal masses. 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 , appreciate input from Palliative care over all prognosis very poor Poor prognosis as per oncology Appreciate radiation oncology input Plan for palliative radiation next week Suspected pyelonephritis Incidental finding on CT scan Urine culture No growth Received Rocephin Day #3 IV abx D/fareed Metastatic lung cancer H/O NSCLC Extensive lymphadenopathy to neck, chest, abdomen, brain metastasis and bilateral adrenal gland metastatic disease S/P stereotactic radiosurgery/brain tumor resection On chemotherapy On chronic Steroid therapy: Discussed with (on prednisone taper secondary to possible acute hepatitis previously. Advised to taper down prednisone in 2 week period) Appreciate palliative care input Poor prognosis as per oncology Appreciate radiation oncology input Orthostatic hypotension On fludrocortisone, midodrine Anemia of chronic disease Hb stable Monitor H/O Seizure Continue Keppra DVT Px: SCDs Re: Brain Mets Code Status Full Code Disposition very poor prognosis intractable abdominal /back pain from metastatic malignancy pt is hoping to return home once pain is controlled with PO meds Admission and Anticipated Discharge Date Admission Date: October 30, 2020 Subjective Patient is seen and examined at bedside still have persistent pain hesitant to use IV Dilaudid CASINO FLOORPERSON wants every 1 hr PRN IV with PO long acting oxycodone for pain control hesitant to transition to hospice care as still hoping to receive treatment for pancreatic ca Review of Systems Gastrointestinal: + abdominal pain Physical Exam Physical Exam: Physical exam: General chronically ill appearing , at present No acute distress, alert awake oriented x3 HEENT: ani icteric sclera Heart: Regular S1-S2, no carotid bruit, no JVD, no lower extremity edema Lungs:no wheeze or rales Abdomen: Soft + tenderness on mid abdomen and back Ex Neuro: No focal neurological deficit normal speech, Psych: Alert awake oriented x3, normal affect Results & Data Results & Data ([facility]) Vital Signs (Past 12 Hours) Vital Signs Temp Pulse Pulse Resp BP Pulse Ox 11/05/20 15:25 36.7 C 72 16 90/61 L 94 11/05/20 13:12 109 H 102/72 11/05/20 08:01 37.2 C 74 16 98/67 L 91 (1) Acute pancreatitis Acute pancreatitis complication: unspecified Pancreatitis type: unspecified pancreatitis type Qualified Code(s): K85.90 - Acute pancreatitis without necrosis or infection, unspecified
--- NOTE | 2020-11-05 16:41 | Palliative Care Progress Note ---
Date of Service November 05, 2020 Assessment & Plan (1) Back pain: Possibly referred pain from pancreatic mass. We discussed palliative radiation as recommended by Dr. Miller. She wants to discuss with Dr. Barillas prior to committing to radiation. We discussed adjuvants for neuropathic pain again today, including gabapentin and methadone, but she declines these. We also discussed possible hydromorphone SAFETY COMPLIANCE SPECIALIST but she has reservations about this as well and wants to discuss further with Dr. Shah. Will continue current regimen for now. She is not interested in celiac plexus block. (2) Anxiety: Contributing to pain. She has lorazepam prn. I am hesitant to do routine dosing with her opioid use. She has declined duloxetine. Will monitor. (3) Abdominal pain: As above (4) Palliative care encounter: 90 minute family meeting with Josi, her sister, Kristine and , Esteban. We reviewed options for pain management but she is reluctant to try any proposed options. She is considering hydromorphone SAFETY COMPLIANCE SPECIALIST. We discussed IV hydromorphone not being an option for her at home and needing a regimen that will be doable at home. She could have SAFETY COMPLIANCE SPECIALIST but would need hospice following her to manage this at home. She is initially agreeable to this but when I reviewed that hospice would mean focus on symptom management rather than cancer treatment, she was not interested in that at this time. We discussed the possibility that there may not be any reasonable treatment options for her cancer and concern that her time is likely limited. We talked about how she would want to spend that time and what was most important to her. She was clear that being with her family at home were her priorities. She needs to have followup with Dr. Barillas to clarify whether there are further options for her cancer treatment. We will try to arrange a visit with Dr. Barillas. Both her and sister are concerned that she is approaching her dying time and want to focus on hospice care but Josi is not ready for that. Palliative care will follow. Admission and Anticipated Discharge Date Admission Date: October 30, 2020 Subjective Another night of severe back pain with cough. She points to left flank when localizing back pain. She had 220 OME in 24 hours. Review of Systems Review of Systems: [place] Symptom Assessment Scale Pain 3/3 Dyspnea 1/3 Nausea 0/3 Anorexia 1/3 Fatigue 1/3 Anxiety 2/3 Palliative Performance Score 50% Physical Exam Constitutional: + ill appearing Respiratory: normal respiratory effort; no labored breathing productive cough Gastrointestinal (Abdomen): Inspection/Auscultation: abdomen not distended epigastric tenderness Musculoskeletal: Extremities: extremities normal to inspection Neurologic: awake; no focal motor deficits and not confused Results & Data ([facility]) Vital Signs (Past 12 Hours) Vital Signs Temp Pulse Pulse Resp BP Pulse Ox 11/05/20 15:25 98.1 F 72 16 90/61 L 94 11/05/20 13:12 109 H 102/72 11/05/20 08:01 99.0 F 74 16 98/67 L 91 PG Care Time/CCT Total # of Minutes Spent Total Time Spent with Patient: Total time spent is greater than 50% in coordination of care (as documented) at patient's floor/unit and/or counseling patient:total time spent 90 minutes with more than 50% of time spent on goals of care, symptom management, hospice, patient and family support Coding Level of Care Code 89423 Subseq Hosp Care Lvl 3 Diagnoses Back pain M54.9 Anxiety F41.9 Abdominal pain R10.9 Palliative care encounter Z51.5 Time Spent (min) 90
[2020-11-05] MEDS ORDERED: MoRPHine SULFATE 10 MG/0.5 ML UDP PO PRN (21:12)
[2020-11-06] MEDS: guaiFENesin/CODEINE 100MG/10MG 5ML UDC PO PRN (02:48)
[2020-11-06] MEDS: HYDROmorphone INJ 1 MG/ML SYRINGE IV PRN ×8 (02:48→21:33)
[2020-11-06] MEDS: HEPARIN 100 UNIT/ML 5ML FLUSH FLUSH PRN ×6 (02:49→21:33)
[2020-11-06] MEDS: METOCLOPRAMIDE HCL 5 MG TABLET PO SCH ×3 (07:31→17:24)
[2020-11-06] MEDS: MIDODRINE HCL 10 MG TAB PO SCH ×3 (08:27→17:24)
[2020-11-06] MEDS: FLUDROCORTISONE ACETATE 0.1 MG TAB PO SCH (08:27)
[2020-11-06] MEDS: FOLIC ACID 1 MG TAB PO SCH (08:28)
[2020-11-06] MEDS: levETIRAcetam 500 MG TAB PO SCH ×2 (08:28→21:42)
[2020-11-06] MEDS: MAGNESIUM CHLORIDE 64MG DELAYED REL TAB PO SCH ×2 (08:28→21:41)
[2020-11-06] MEDS: guaiFENesin 600 MG TABCR PO SCH ×2 (08:28→21:41)
[2020-11-06] MEDS: POLYETHYLENE (MIRALAX) 17 GM PACK PO SCH (08:29)
[2020-11-06] MEDS: MoRPHine SULFATE CR 15 MG TABCR PO SCH ×2 (08:29→21:46)
[2020-11-06] MEDS: POTASSIUM CHLORIDE 20 MEQ/15 ML UDC PO SCH (08:30)
[2020-11-06] MEDS: predniSONE 20 MG TAB PO SCH (08:30)
[2020-11-06] MEDS: DOCUSATE SODIUM/SENNA 50/8.6MG TAB PO SCH ×2 (08:30→21:43)
[2020-11-06] MEDS: LORazepam 1 MG TAB SL PRN (14:21)
--- NOTE | 2020-11-06 16:57 | Hospitalist Progress Note ---
Date of Service November 06, 2020 Assessment & Plan (1) Acute pancreatitis: Metastatic Pancreatic mass /cancer -CT ABD:Patent biliary enteric stent with secondary pneumobilia. Persistent mild dilatation of pancreatic duct with a distal pancreatic duct cut off sign. Persistent mesenteric susanna hepatis and retroperitoneal lymphadenopathy. Persistent right posterior bladder nodule. Ill-defined areas of decreased right renal attenuation suspicious for pyelonephritis. Clinical follow-up recommended. Stable adrenal masses. 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 , appreciate input from Palliative care over all prognosis very poor Poor prognosis as per oncology Appreciate radiation oncology input Plan for palliative radiation next week Suspected pyelonephritis Incidental finding on CT scan Urine culture No growth Received Rocephin Day #3 IV abx D/fareed Metastatic lung cancer H/O NSCLC Extensive lymphadenopathy to neck, chest, abdomen, brain metastasis and bilateral adrenal gland metastatic disease S/P stereotactic radiosurgery/brain tumor resection On chemotherapy On chronic Steroid therapy: Discussed with (on prednisone taper secondary to possible acute hepatitis previously. Advised to taper down prednisone in 2 week period) Appreciate palliative care input Poor prognosis as per oncology Appreciate radiation oncology input Orthostatic hypotension On fludrocortisone, midodrine Anemia of chronic disease Hb stable Monitor H/O Seizure Continue Keppra DVT Px: SCDs Re: Brain Mets Code Status Full Code Disposition very poor prognosis intractable abdominal /back pain from metastatic malignancy pt is hoping to return home once pain is controlled with PO meds Admission and Anticipated Discharge Date Admission Date: October 30, 2020 Subjective Patient is seen and examined at bedside still have persistent pain hesitant to use IV Dilaudid FILM CLEANER wants every 1 hr PRN IV with PO long acting oxycodone for pain control hesitant to transition to hospice care as still hoping to receive treatment for pancreatic ca Physical Exam Physical Exam: Physical exam: General chronically ill appearing , at present No acute distress, alert awake oriented x3 HEENT: ani icteric sclera Heart: Regular S1-S2, no carotid bruit, no JVD, no lower extremity edema Lungs:no wheeze or rales Abdomen: Soft + tenderness on mid abdomen and back Ex Neuro: No focal neurological deficit normal speech, Psych: Alert awake oriented x3, normal affect Results & Data Results & Data ([facility]) Vital Signs (Past 12 Hours) Vital Signs Temp Pulse Pulse Resp BP Pulse Ox 11/06/20 16:55 36.9 C 95 H 16 101/69 95 11/06/20 05:55 36.5 C 89 16 95/66 L 91 (1) Acute pancreatitis Acute pancreatitis complication: unspecified Pancreatitis type: unspecified pancreatitis type Qualified Code(s): K85.90 - Acute pancreatitis without necrosis or infection, unspecified
[2020-11-07] MEDS: HEPARIN 100 UNIT/ML 5ML FLUSH FLUSH PRN ×7 (00:55→13:14)
[2020-11-07] MEDS: HYDROmorphone INJ 1 MG/ML SYRINGE IV PRN ×5 (00:55→09:14)
[2020-11-07] MEDS: METOCLOPRAMIDE HCL 5 MG TABLET PO SCH ×3 (09:02→15:40)
[2020-11-07] MEDS: DOCUSATE SODIUM/SENNA 50/8.6MG TAB PO SCH ×2 (09:03→20:36)
[2020-11-07] MEDS: MIDODRINE HCL 10 MG TAB PO SCH ×3 (09:03→17:02)
[2020-11-07] MEDS: FLUDROCORTISONE ACETATE 0.1 MG TAB PO SCH (09:03)
[2020-11-07] MEDS: guaiFENesin 600 MG TABCR PO SCH ×2 (09:04→20:35)
[2020-11-07] MEDS: POTASSIUM CHLORIDE 20 MEQ/15 ML UDC PO SCH (09:05)
[2020-11-07] MEDS: predniSONE 20 MG TAB PO SCH (09:05)
[2020-11-07] MEDS: MAGNESIUM CHLORIDE 64MG DELAYED REL TAB PO SCH ×2 (09:05→21:17)
[2020-11-07] MEDS: POLYETHYLENE (MIRALAX) 17 GM PACK PO SCH (09:05)
[2020-11-07] MEDS: levETIRAcetam 500 MG TAB PO SCH ×2 (09:06→20:34)
[2020-11-07] MEDS: MoRPHine SULFATE CR 15 MG TABCR PO SCH ×2 (09:13→20:40)
[2020-11-07] MEDS: HYDROmorphone INJ 2 MG/ML SYR/VIAL IV PRN ×6 (10:52→23:53)
[2020-11-07] MEDS: FOLIC ACID 1 MG TAB PO SCH (10:52)
[2020-11-07] MEDS: LORazepam 1 MG TAB SL PRN (12:39)
--- NOTE | 2020-11-07 16:37 | Palliative Care Progress Note ---
Date of Service November 07, 2020 Assessment & Plan (1) Epigastric abdominal pain: Neuropathic with pancreatic mass. We again discussed the nature of neuropathic pain and importance of adjuvant use. She is likely to continue to have problems with relief with hydromorphone alone but has been resistant to other options. She has a virtual appointment with Dr. Barillas tomorrow to discuss her prognosis and options. I encouraged her to ask him about his opinion of celiac plexus block as she has an established relationship with him and trusts his opinion. She is emphatic about not making any decisions or changes in treatment plan until she is able to discuss with Dr. Barillas. (2) Back pain: (3) Anxiety: Definitely a contributor to her overall pain. Continue lorazepam as needed. Would avoid routine dosing with higher dose opioids. (4) Palliative care encounter: Her , Esteban, is at bedside and his primary goal is to be able to reach a plan and pain management regimen that would allow her to be at home. He has been agreeable to hospice care and understands that Josi's prognosis is poor. Palliative care will follow up after oncology appointment tomorrow. (5) Constipation: (6) Adenocarcinoma of lung: Admission and Anticipated Discharge Date Admission Date: October 30, 2020 Subjective Continues to have pain. Abdominal pain is more severe today. She has used 440mg OME in the last 24 hours. With 400mg OME of IV dilaudid. She reports that the dilaudid is not effective for the pain. Review of Systems Review of Systems: [place] Symptom Assessment Scale Pain 3/3 Nausea 0/3 Anorexia 2/3 Fatigue 2/3 Anxiety 3/3 Drowsiness 0/3 Palliative Performance Score 50% Physical Exam Constitutional: + disheveled Respiratory: normal respiratory effort; no labored breathing Gastrointestinal (Abdomen): not distended Musculoskeletal: Extremities: extremities normal to inspection Neurologic: awake; not confused Results & Data ([facility]) Vital Signs (Past 12 Hours) Vital Signs Temp Pulse Pulse Resp BP Pulse Ox 11/07/20 15:06 97.7 F 90 18 109/78 96 11/07/20 12:37 98 H 108/75 11/07/20 07:24 98.1 F 80 16 101/68 95 PG Care Time/CCT Total # of Minutes Spent Total Time Spent with Patient: Total time spent is greater than 50% in coordination of care (as documented) at patient's floor/unit and/or counseling patient: Coding Level of Care Code 40676 Subseq Hosp Care Lvl 2 Diagnoses Epigastric abdominal pain R10.13 Back pain M54.9 Anxiety F41.9 Palliative care encounter Z51.5 Constipation K59.00 Adenocarcinoma of lung C34.90 Laterality: unspecified laterality (1) Adenocarcinoma of lung Laterality: unspecified laterality Qualified Code(s): C34.90 - Malignant neoplasm of unspecified part of unspecified bronchus or lung
--- NOTE | 2020-11-07 18:58 | Hospitalist Progress Note ---
Date of Service November 07, 2020 Assessment & Plan (1) Acute pancreatitis: Metastatic Pancreatic mass /cancer Present on admission with worsening abdominal pain CT ABD:Patent biliary enteric stent with secondary pneumobilia. Persistent mild dilatation of pancreatic duct with a distal pancreatic duct cut off sign. Persistent mesenteric susanna hepatis and retroperitoneal lymphadenopathy. Persistent right posterior bladder nodule. Ill-defined areas of decreased right renal attenuation suspicious for pyelonephritis. Clinical follow-up recommended. Stable adrenal masses. Patchy groundglass nodular opacities within the right lower lobe, likely infectious/inflammatory Continues to have severe pain from metastatic pancreatic mass that required IV Dilaudid Tolerated diet Pain improved today Suspected pyelonephritis Incidental finding on CT scan Urine culture No growth Received Rocephin Day #3 IV abx D/fareed Metastatic lung cancer H/O NSCLC Extensive lymphadenopathy to neck, chest, abdomen, brain metastasis and bilateral adrenal gland metastatic disease S/P stereotactic radiosurgery/brain tumor resection On chemotherapy On chronic Steroid therapy: Discussed with (on prednisone taper secondary to possible acute hepatitis previously. Advised to taper down prednisone in 2 week period) Palliative care on board for goal of care Poor prognosis as per oncology Appreciate radiation oncology input Plan to have a virtual meeting today with Oncology Orthostatic hypotension On fludrocortisone, midodrine Anemia of chronic disease Hb stable Monitor H/O Seizure Continue Keppra DVT Px: SCDs Re: Brain Mets Code Status Full Code Disposition very poor prognosis intractable abdominal /back pain from metastatic malignancy pt is hoping to return home once pain is controlled with PO meds Admission and Anticipated Discharge Date Admission Date: October 30, 2020 Subjective Pt was seen and examined for follow of pain Lying in bed with no distress Pt said that pain is controlled She said that she is very tired and sleepy She said that she is scheduled to have a video call tomorrow with oncology Dr. Barillas Denies any chest pain, palpitation, dizziness and SOB Review of Systems Review of Systems: All systems reviewed & are unremarkable except as noted in Subjective Physical Exam Physical Exam: General- No acute distress Head- atraumatic Eyes- PERRL, EOMI, ENT- oropharynx clear Neck- supple, no JVD Lungs- clear to auscultation Heart- regular rhythm; no murmur Abdomen- normal bowel sounds, soft, +tender Extremities- no calf tenderness Neuro- alert, oriented x 3; PERRL, EOMI; no facial palsy; no dysarthria Skin- warm & dry Results & Data Results & Data ([facility]) Vital Signs (Past 12 Hours) Vital Signs Temp Pulse Pulse Resp BP Pulse Ox 11/07/20 17:04 85 104/72 11/07/20 15:06 36.5 C 90 18 109/78 96 11/07/20 12:37 98 H 108/75 11/07/20 07:24 36.7 C 80 16 101/68 95 (1) Acute pancreatitis Acute pancreatitis complication: unspecified Pancreatitis type: unspecified pancreatitis type Qualified Code(s): K85.90 - Acute pancreatitis without necrosis or infection, unspecified
[2020-11-08] MEDS: HYDROmorphone INJ 2 MG/ML SYR/VIAL IV PRN ×11 (02:19→23:35)
[2020-11-08] MEDS: HEPARIN 100 UNIT/ML 5ML FLUSH FLUSH PRN ×3 (03:36→23:35)
[2020-11-08] MEDS: METOCLOPRAMIDE HCL 5 MG TABLET PO SCH ×3 (08:47→15:49)
[2020-11-08] MEDS: MoRPHine SULFATE CR 15 MG TABCR PO SCH ×2 (08:53→20:04)
[2020-11-08] MEDS: POLYETHYLENE (MIRALAX) 17 GM PACK PO SCH (08:53)
[2020-11-08] MEDS: POTASSIUM CHLORIDE 20 MEQ/15 ML UDC PO SCH (08:54)
[2020-11-08] MEDS: guaiFENesin 600 MG TABCR PO SCH ×2 (08:56→20:04)
[2020-11-08] MEDS: FOLIC ACID 1 MG TAB PO SCH (08:56)
[2020-11-08] MEDS: predniSONE 20 MG TAB PO SCH (08:56)
[2020-11-08] MEDS: DOCUSATE SODIUM/SENNA 50/8.6MG TAB PO SCH ×2 (08:56→20:05)
[2020-11-08] MEDS: FLUDROCORTISONE ACETATE 0.1 MG TAB PO SCH (08:56)
[2020-11-08] MEDS: MIDODRINE HCL 10 MG TAB PO SCH ×3 (08:57→16:41)
[2020-11-08] MEDS: MAGNESIUM CHLORIDE 64MG DELAYED REL TAB PO SCH ×2 (08:57→20:05)
[2020-11-08] MEDS: levETIRAcetam 500 MG TAB PO SCH ×2 (08:57→20:03)
--- NOTE | 2020-11-08 16:46 | Hospitalist Progress Note ---
Date of Service November 08, 2020 Assessment & Plan (1) Acute pancreatitis: Metastatic Pancreatic mass /cancer Present on admission with worsening abdominal pain CT ABD:Patent biliary enteric stent with secondary pneumobilia. Persistent mild dilatation of pancreatic duct with a distal pancreatic duct cut off sign. Persistent mesenteric susanna hepatis and retroperitoneal lymphadenopathy. Persistent right posterior bladder nodule. Ill-defined areas of decreased right renal attenuation suspicious for pyelonephritis. Clinical follow-up recommended. Stable adrenal masses. Patchy groundglass nodular opacities within the right lower lobe, likely infectious/inflammatory Continues to have severe pain from metastatic pancreatic mass that required IV Dilaudid Tolerated diet Pain improved today Suspected pyelonephritis Incidental finding on CT scan Urine culture No growth Received Rocephin Day #3 IV abx D/fareed Metastatic lung cancer H/O NSCLC Extensive lymphadenopathy to neck, chest, abdomen, brain metastasis and bilateral adrenal gland metastatic disease S/P stereotactic radiosurgery/brain tumor resection On chemotherapy On chronic Steroid therapy: Discussed with (on prednisone taper secondary to possible acute hepatitis previously. Advised to taper down prednisone in 2 week period) Palliative care on board for goal of care Poor prognosis as per oncology Appreciate radiation oncology input Met with oncology today, will review oncology note Orthostatic hypotension On fludrocortisone, midodrine Anemia of chronic disease Hb stable Monitor H/O Seizure Continue Keppra DVT Px: SCDs Re: Brain Mets Code Status Full Code Disposition very poor prognosis intractable abdominal /back pain from metastatic malignancy pt is hoping to return home once pain is controlled with PO meds Admission and Anticipated Discharge Date Admission Date: October 30, 2020 Subjective Patient was seen and examined for follow-up of abdominal pain Lying in bed with no distress with sister and at bedside Patient had a meeting with oncology today Patient seems to be interested to continue with palliative radiation But sister explained to her that if she gets palliative, she will not be able to get the [employer] FINAL pump because she has to be on hospice No chest pain, palpitation, dizziness, shortness of breath. Review of Systems Review of Systems: All systems reviewed & are unremarkable except as noted in Subjective Physical Exam Physical Exam: General- No acute distress Head- atraumatic Eyes- PERRL, EOMI, ENT- oropharynx clear Neck- supple, no JVD Lungs- clear to auscultation Heart- regular rhythm; no murmur Abdomen- normal bowel sounds, soft, +tender Extremities- no calf tenderness Neuro- alert, oriented x 3; PERRL, EOMI; no facial palsy; no dysarthria Skin- warm & dry Results & Data Results & Data ([facility]) Vital Signs (Past 12 Hours) Vital Signs Temp Pulse Pulse Resp BP Pulse Ox 11/08/20 15:33 36.5 C 83 18 95/67 L 97 11/08/20 12:33 88 103/73 11/08/20 07:13 36.6 C 104 H 18 106/75 97 (1) Acute pancreatitis Acute pancreatitis complication: unspecified Pancreatitis type: unspecified pancreatitis type Qualified Code(s): K85.90 - Acute pancreatitis without necrosis or infection, unspecified
[2020-11-09] MEDS: HYDROmorphone INJ 2 MG/ML SYR/VIAL IV PRN ×10 (00:49→21:25)
[2020-11-09] MEDS: HEPARIN 100 UNIT/ML 5ML FLUSH FLUSH PRN ×4 (02:43→09:54)
[2020-11-09] MEDS: METOCLOPRAMIDE HCL 5 MG TABLET PO SCH ×3 (08:04→18:06)
[2020-11-09] MEDS: MIDODRINE HCL 10 MG TAB PO SCH ×3 (08:05→18:14)
[2020-11-09] MEDS: DOCUSATE SODIUM/SENNA 50/8.6MG TAB PO SCH ×2 (08:06→20:44)
[2020-11-09] MEDS: FLUDROCORTISONE ACETATE 0.1 MG TAB PO SCH (08:08)
[2020-11-09] MEDS: FOLIC ACID 1 MG TAB PO SCH (08:09)
[2020-11-09] MEDS: guaiFENesin 600 MG TABCR PO SCH ×2 (08:09→20:44)
[2020-11-09] MEDS: levETIRAcetam 500 MG TAB PO SCH ×2 (08:10→20:44)
[2020-11-09] MEDS: MAGNESIUM CHLORIDE 64MG DELAYED REL TAB PO SCH ×2 (08:11→20:44)
[2020-11-09] MEDS: predniSONE 20 MG TAB PO SCH (08:12)
[2020-11-09] MEDS: POTASSIUM CHLORIDE 20 MEQ/15 ML UDC PO SCH (08:13)
[2020-11-09] MEDS: MoRPHine SULFATE CR 15 MG TABCR PO SCH ×2 (08:20→20:43)
[2020-11-09] MEDS: POLYETHYLENE (MIRALAX) 17 GM PACK PO SCH (14:25)
--- NOTE | 2020-11-09 14:35 | Palliative Care Progress Note ---
Date of Service November 09, 2020 Assessment & Plan (1) Abdominal pain, epigastric: Severe neuropathic pain. She has declined celiac plexus block and adjuvant therapies. At this point, most effective way to control her pain would be hydromorphone ASTRONOMY PROFESSOR. (2) Anxiety: Definitely contributing to pain. PRN lorazepam ordered. (3) Palliative care encounter: I talked with Josi today about her visit with Dr. Barillas yesterday and what her thoughts are moving forward. Her sister, Kristine, is also present. She initially tells me that she would want to proceed with palliative radiation. This would mean that she could not have hospice support and consequently, not a hydromorphone ASTRONOMY PROFESSOR at home. We could convert her to an oral regimen with less tight control. She asked me about prognosis and we discussed that unfortunately, with her advanced cancer, she likely has weeks to months to live. We talked about how she would want to spend that time and what her priority would be. She consistently says that she would want to be with her family. She is presented with two options, to proceed with palliative radiation and oral analgesic regimen or proceed with hospice care and hydromorphone ASTRONOMY PROFESSOR. She and h er family will consider between these two choices and we will determine plan of care based on her decision. (4) Pancreatic mass: Admission and Anticipated Discharge Date Admission Date: October 30, 2020 Subjective Josi complains of increased abdominal pain last night and has had 540mg OME in the last 24 hours. She reports that pain feels a little better today. She had a virtual meeting with Dr. Barillas yesterday. Review of Systems Review of Systems: [place] Symptom Assessment Scale Pain 1/3 Dyspnea 0/3 Anxiety 2/3 Nausea 0/3 Drowsiness 1/3 Palliative Performance Score 50% Physical Exam Constitutional: no acute distress Respiratory: normal respiratory effort; no labored breathing productive cough Cardiovascular: Extremities: no edema Gastrointestinal (Abdomen): tenderness LUQ Musculoskeletal: Extremities: extremities normal to inspection Neurologic: awake; not confused Results & Data ([place]) Vital Signs (Past 12 Hours) Vital Signs Temp Pulse Resp BP Pulse Ox 11/09/20 07:16 98.4 F 108 H 18 96/67 L 94 PG Care Time/CCT Total # of Minutes Spent Total Time Spent with Patient: Total time spent is greater than 50% in coordination of care (as documented) at patient's floor/unit and/or counseling patient: total time spent 40 minutes with more than 50% of time spent on goals of care, prognosis, symptom management, hospice, patient education and support. Coding Level of Care Code 92163 Subseq Hosp Care Lvl 3 Diagnoses Abdominal pain, epigastric R10.13 Anxiety F41.9 Palliative care encounter Z51.5 Pancreatic mass K86.89
--- NOTE | 2020-11-09 17:52 | Hospitalist Progress Note ---
Date of Service November 09, 2020 Assessment & Plan (1) Acute pancreatitis: Metastatic Pancreatic mass /cancer Present on admission with worsening abdominal pain CT ABD:Patent biliary enteric stent with secondary pneumobilia. Persistent mild dilatation of pancreatic duct with a distal pancreatic duct cut off sign. Persistent mesenteric susanna hepatis and retroperitoneal lymphadenopathy. Persistent right posterior bladder nodule. Ill-defined areas of decreased right renal attenuation suspicious for pyelonephritis. Clinical follow-up recommended. Stable adrenal masses. Patchy groundglass nodular opacities within the right lower lobe, likely infectious/inflammatory Continues to have severe pain from metastatic pancreatic mass that required IV Dilaudid Tolerated diet Pain improved today Suspected pyelonephritis Incidental finding on CT scan Urine culture No growth Received Rocephin Day #3 IV abx D/fareed Metastatic lung cancer H/O NSCLC Extensive lymphadenopathy to neck, chest, abdomen, brain metastasis and bilateral adrenal gland metastatic disease S/P stereotactic radiosurgery/brain tumor resection On chemotherapy On chronic Steroid therapy: Discussed with (on prednisone taper secondary to possible acute hepatitis previously. Advised to taper down prednisone in 2 week period) Palliative care on board for goal of care Poor prognosis as per oncology Appreciate radiation oncology input Patient had a virtual meeting with oncology Dr. Barillas yesterday Dr. Barillas explained to the patient about her cancer progress and the prognosis is poor Oncology said there is no curable treatment for cancer and no plan for further chemotherapy At this point recommend palliative management or transition to hospice Patient is not ready to transition to comfort care, she wants to continue to fighting She would like to get a second opinion from oncology, sister will call [facility] to schedule for second opinion Orthostatic hypotension On fludrocortisone, midodrine Anemia of chronic disease Hb stable Monitor H/O Seizure Continue Keppra DVT Px: SCDs Re: Brain Mets Code Status Full Code Disposition very poor prognosis intractable abdominal /back pain from metastatic malignancy pt is hoping to return home once pain is controlled with PO meds Admission and Anticipated Discharge Date Admission Date: October 30, 2020 Subjective Patient was seen and examined for follow-up of pain Lying in bed with no distress Patient said that she is not having a good day today because she is having a lot of pain She would like to get a second opinion from oncology before transition to comfort care Sister will call [facility] to try to get schedule an appointment for her Denies any chest pain, palpitation, dizziness, shortness of breath. Review of Systems Review of Systems: All systems reviewed & are unremarkable except as noted in Subjective Physical Exam Physical Exam: General- No acute distress Head- atraumatic Eyes- PERRL, EOMI, ENT- oropharynx clear Neck- supple, no JVD Lungs- clear to auscultation Heart- regular rhythm; no murmur Abdomen- normal bowel sounds, soft, +tender Extremities- no calf tenderness Neuro- alert, oriented x 3; PERRL, EOMI; no facial palsy; no dysarthria Skin- warm & dry Results & Data Results & Data ([facility]) Vital Signs (Past 12 Hours) Vital Signs Temp Pulse Resp BP Pulse Ox 11/09/20 14:23 108 H 16 116/83 98 11/09/20 07:16 36.9 C 108 H 18 96/67 L 94 (1) Acute pancreatitis Acute pancreatitis complication: unspecified Pancreatitis type: unspecified pancreatitis type Qualified Code(s): K85.90 - Acute pancreatitis without necrosis or infection, unspecified
[2020-11-10] MEDS: HYDROmorphone INJ 2 MG/ML SYR/VIAL IV PRN ×11 (00:10→23:43)
[2020-11-10] MEDS: HEPARIN 100 UNIT/ML 5ML FLUSH FLUSH PRN ×5 (07:55→17:41)
[2020-11-10] MEDS: MoRPHine SULFATE CR 15 MG TABCR PO SCH ×2 (08:14→20:27)
[2020-11-10] MEDS: predniSONE 20 MG TAB PO SCH (08:14)
[2020-11-10] MEDS: FOLIC ACID 1 MG TAB PO SCH (08:16)
[2020-11-10] MEDS: MAGNESIUM CHLORIDE 64MG DELAYED REL TAB PO SCH ×2 (08:16→20:28)
[2020-11-10] MEDS: DOCUSATE SODIUM/SENNA 50/8.6MG TAB PO SCH ×2 (08:16→20:28)
[2020-11-10] MEDS: levETIRAcetam 500 MG TAB PO SCH ×2 (08:17→20:28)
[2020-11-10] MEDS: guaiFENesin 600 MG TABCR PO SCH ×2 (08:21→20:28)
[2020-11-10] MEDS: MIDODRINE HCL 10 MG TAB PO SCH ×3 (08:37→17:37)
[2020-11-10] MEDS: METOCLOPRAMIDE HCL 5 MG TABLET PO SCH ×3 (08:38→16:20)
[2020-11-10] MEDS ORDERED: ALBUT/IPRATROP 3MG/0.5MG NEB 3 ML VIAL NEB ONE (09:10)
[2020-11-10] MEDS: FLUDROCORTISONE ACETATE 0.1 MG TAB PO SCH (09:56)
[2020-11-10] MEDS: POTASSIUM CHLORIDE 20 MEQ/15 ML UDC PO SCH (09:57)
[2020-11-10] MEDS: POLYETHYLENE (MIRALAX) 17 GM PACK PO SCH (09:57)
[2020-11-10] MEDS: LORazepam 1 MG TAB SL PRN (12:16)
[2020-11-10] MEDS: ALBUT/IPRATROP 3MG/0.5MG NEB 3 ML VIAL NEB PRN (12:30)
--- NOTE | 2020-11-10 13:43 | XRay Report ---
XR chest 1V portable CLINICAL HISTORY: Shortness of breath. COMPARISON STUDY: Chest radiograph October 30, 2020. FINDINGS: Left humeral internal fixation is partially imaged. There is a left subclavian [id number]. There is no pneumothorax or pleural effusion. Right upper lobe mass is again noted. Apparent adjac ent right midlung density is likely due to overlying soft tissues/implants; however, adjacent airspac e opacity cannot be excluded. IMPRESSION: 1. Redemonstration of the right upper lobe mass. 2. Apparent adjacent opacity within the right lung. This is probably due to overlying soft tissue/imp lant however adjacent airspace opacity cannot be excluded. ACT 112: Negative or not required by law. Electronically signed by: German Grimaldo M.D. 11/10/2020 1:42 PM
--- NOTE | 2020-11-10 18:47 | Hospitalist Progress Note ---
Date of Service November 10, 2020 Assessment & Plan (1) Acute pancreatitis: Metastatic Pancreatic mass /cancer Present on admission with worsening abdominal pain CT ABD:Patent biliary enteric stent with secondary pneumobilia. Persistent mild dilatation of pancreatic duct with a distal pancreatic duct cut off sign. Persistent mesenteric susanna hepatis and retroperitoneal lymphadenopathy. Persistent right posterior bladder nodule. Ill-defined areas of decreased right renal attenuation suspicious for pyelonephritis. Clinical follow-up recommended. Stable adrenal masses. Patchy groundglass nodular opacities within the right lower lobe, likely infectious/inflammatory Continues to have severe pain from metastatic pancreatic mass that required IV Dilaudid Tolerated diet Continue pain control Suspected pyelonephritis Incidental finding on CT scan Urine culture No growth Received Rocephin for 3 days, then abx was discontinued Dyspnea CXR showed Redemonstration of the right upper lobe mass. Apparent adjacent opacity within the right lung. This is probably due to overlying soft ti ssue/implant however adjacent airspace opacity cannot be excluded. Will add duoneb prn Continue monitor Metastatic lung cancer H/O NSCLC Extensive lymphadenopathy to neck, chest, abdomen, brain metastasis and bilateral adrenal gland metastatic disease S/P stereotactic radiosurgery/brain tumor resection On chemotherapy On chronic Steroid therapy: Discussed with (on prednisone taper sec ondary to possible acute hepatitis previously. Advised to taper down prednisone in 2 week period) Palliative care on board for goal of care Poor prognosis as per oncology Appreciate radiation oncology input Patient had a virtual meeting with oncology Dr. Barillas yesterday Dr. Barillas explained to the patient about her cancer progress and the prognosis is poor Oncology said there is no curable treatment for cancer and no plan for further chemotherapy At this point recommend palliative management or transition to hospice Patient is not ready to transition to comfort care, she wants to continue to fighting She would like to get a second opinion from oncology, sister will call [facility] to schedule for second opinion Orthostatic hypotension On fludrocortisone, midodrine Anemia of chronic disease Hb stable Monitor H/O Seizure Continue Keppra DVT Px: SCDs Re: Brain Mets Code Status Full Code Disposition very poor prognosis intractable abdominal /back pain from metastatic malignancy pt is hoping to return home once pain is controlled with PO meds Admission and Anticipated Discharge Date Admission Date: October 30, 2020 Subjective Patient was seen and examined for follow-up of pain Lying in bed with no distress. Pt is very anxious She said that she could breath this morning because she felt congested in her throat She said that she continues to have a lot of pain in her abdominal Denies any chest pain, palpitation, dizziness Review of Systems Review of Systems: All systems reviewed & are unremarkable except as noted in Subjective Physical Exam Physical Exam: General- No acute distress Head- atraumatic Eyes- PERRL, EOMI, ENT- oropharynx clear Neck- supple, no JVD Lungs- Coarse BS Heart- regular rhythm; no murmur Abdomen- normal bowel sounds, soft, +tender Extremities- no calf tenderness Neuro- alert, oriented x 3; PERRL, EOMI; no facial palsy; no dysarthria Skin- warm & dry Results & Data Results & Data ([facility]) Vital Signs (Past 12 Hours) Vital Signs Temp Pulse Pulse Resp BP Pulse Ox 11/10/20 17:36 109 H 109/78 11/10/20 15:48 37.4 C 95 H 18 109/77 94 11/10/20 12:30 110 H 18 99 11/10/20 12:18 119 H 108/78 98 11/10/20 07:30 37.4 C 108 H 18 102/70 96 (1) Acute pancreatitis Acute pancreatitis complication: unspecified Pancreatitis type: unspecified pancreatitis type Qualified Code(s): K85.90 - Acute pancreatitis without necrosis or infection, unspecified
[2020-11-11] MEDS: HYDROmorphone INJ 2 MG/ML SYR/VIAL IV PRN ×11 (01:47→23:32)
[2020-11-11] MEDS: MIDODRINE HCL 10 MG TAB PO SCH ×3 (08:07→18:12)
[2020-11-11] MEDS: FOLIC ACID 1 MG TAB PO SCH (08:07)
[2020-11-11] MEDS: DOCUSATE SODIUM/SENNA 50/8.6MG TAB PO SCH ×2 (08:07→19:36)
[2020-11-11] MEDS: FLUDROCORTISONE ACETATE 0.1 MG TAB PO SCH (08:07)
[2020-11-11] MEDS: levETIRAcetam 500 MG TAB PO SCH ×2 (08:08→19:35)
[2020-11-11] MEDS: MoRPHine SULFATE CR 15 MG TABCR PO SCH ×2 (08:08→19:36)
[2020-11-11] MEDS: MAGNESIUM CHLORIDE 64MG DELAYED REL TAB PO SCH ×2 (08:08→19:36)
[2020-11-11] MEDS: guaiFENesin 600 MG TABCR PO SCH ×2 (08:08→19:36)
[2020-11-11] MEDS: POLYETHYLENE (MIRALAX) 17 GM PACK PO SCH (08:08)
[2020-11-11] MEDS: METOCLOPRAMIDE HCL 5 MG TABLET PO SCH ×3 (08:08→17:28)
[2020-11-11] MEDS: predniSONE 20 MG TAB PO SCH (08:08)
[2020-11-11] MEDS: POTASSIUM CHLORIDE 20 MEQ/15 ML UDC PO SCH (08:09)
[2020-11-11] MEDS: HEPARIN 100 UNIT/ML 5ML FLUSH FLUSH PRN ×7 (08:47→23:33)
[2020-11-11] MEDS: LORazepam 1 MG TAB SL PRN ×2 (11:05→19:36)
[2020-11-11] MEDS: ALBUT/IPRATROP 3MG/0.5MG NEB 3 ML VIAL NEB PRN (11:18)
--- NOTE | 2020-11-11 13:56 | Palliative Care Progress Note ---
Date of Service November 11, 2020 Assessment & Plan (1) Palliative care encounter: Josi is now considering a second opinion at another institution, perhaps [facility]. She tells me that she has not made a decision and that she is feeling very sad today. She is tearful at times. We talked about using lorazepam for anxiety which is contributing to her pain and her difficulty with making a decision regarding her plan of care. I reminded her that if she would want to pursue a second opinion, we would need to convert her to an oral regimen and would need to work on that prior to discharge. She tells me that she will have a decision tomorrow about what she wants to do moving forward. Admission and Anticipated Discharge Date Admission Date: October 30, 2020 Subjective Resting quietly in bed. Reports that she feels a little better today. She has had lorazepam x 2 in last 24 hours for anxiety with some relief. She continues to request hydromorphone every 1-2 hours for abdominal pain. Review of Systems Review of Systems: [place] Symptom ASsessment Scale Pain 1/3 Dyspnea 0/3 Nausea 0/3 Anxiety 2/3 Fatigue 1/3 Drowsiness 0/3 Palliative Performance Score 50% Physical Exam Constitutional: no acute distress ENMT: Mouth: oral mucous membranes not dry Respiratory: normal respiratory effort; no labored breathing Musculoskeletal: Extremities: extremities normal to inspection Neurologic: awake; not confused Psychiatric: Orientation: alert and oriented x 3 Affect: + tearful affect Mood: + anxious mood Results & Data ([facility]) Vital Signs (Past 12 Hours) Vital Signs Temp Pulse Pulse Resp BP Pulse Ox 11/11/20 11:19 117 H 18 99 11/11/20 07:00 98.1 F 111 H 16 105/76 97 PG Care Time/CCT Total # of Minutes Spent Total Time Spent with Patient: Total time spent is greater than 50% in coordination of care (as documented) at patient's floor/unit and/or counseling patient: Coding Level of Care Code 64947 Subseq Hosp Care Lvl 2 Diagnoses Palliative care encounter Z51.5
--- NOTE | 2020-11-11 18:58 | Hospitalist Progress Note ---
Date of Service November 11, 2020 Assessment & Plan (1) Acute pancreatitis: Metastatic Pancreatic mass /cancer Present on admission with worsening abdominal pain CT ABD:Patent biliary enteric stent with secondary pneumobilia. Persistent mild dilatation of pancreatic duct with a distal pancreatic duct cut off sign. Persistent mesenteric susanna hepatis and retroperitoneal lymphadenopathy. Persistent right posterior bladder nodule. Ill-defined areas of decreased right renal attenuation suspicious for pyelonephritis. Clinical follow-up recommended. Stable adrenal masses. Patchy groundglass nodular opacities within the right lower lobe, likely infectious/inflammatory Continues to have severe pain from metastatic pancreatic mass that required IV Dilaudid Tolerated diet Continue pain control Suspected pyelonephritis Incidental finding on CT scan Urine culture No growth Received Rocephin for 3 days, then abx was discontinued Dyspnea CXR showed Redemonstration of the right upper lobe mass. Apparent adjacent opacity within the right lung. This is probably due to overlying soft ti ssue/implant however adjacent airspace opacity cannot be excluded. Will add duoneb prn Continue monitor Metastatic lung cancer H/O NSCLC Extensive lymphadenopathy to neck, chest, abdomen, brain metastasis and bilateral adrenal gland metastatic disease S/P stereotactic radiosurgery/brain tumor resection On chemotherapy On chronic Steroid therapy: Discussed with (on prednisone taper sec ondary to possible acute hepatitis previously. Advised to taper down prednisone in 2 week period) Palliative care on board for goal of care Poor prognosis as per oncology Appreciate radiation oncology input Patient had a virtual meeting with oncology Dr. Barillas yesterday Dr. Barillas explained to the patient about her cancer progress and the prognosis is poor Oncology said there is no curable treatment for cancer and no plan for further chemotherapy At this point recommend palliative management or transition to hospice Patient is not ready to transition to comfort care, she wants to continue to fighting She would like to get a second opinion from oncology, sister will call [facility] to schedule for second opinion Orthostatic hypotension On fludrocortisone, midodrine Anemia of chronic disease Hb stable Monitor H/O Seizure Continue Keppra DVT Px: SCDs Re: Brain Mets Code Status Full Code Disposition very poor prognosis intractable abdominal /back pain from metastatic malignancy pt is hoping to return home once pain is controlled with PO meds Admission and Anticipated Discharge Date Admission Date: October 30, 2020 Subjective Patient was seen and examined for follow-up of pain Lying in bed with no distress. Pt is very anxious She wants to get a second opinion from Oncology at [facility] She said that she continues to have a lot of pain in her abdominal Denies any chest pain, palpitation, dizziness Review of Systems Review of Systems: All systems reviewed & are unremarkable except as noted in Subjective Physical Exam Physical Exam: General- No acute distress Head- atraumatic Eyes- PERRL, EOMI, ENT- oropharynx clear Neck- supple, no JVD Lungs- Coarse BS Heart- regular rhythm; no murmur Abdomen- normal bowel sounds, soft, +tender Extremities- no calf tenderness Neuro- alert, oriented x 3; PERRL, EOMI; no facial palsy; no dysarthria Skin- warm & dry Results & Data Results & Data ([facility]) Vital Signs (Past 12 Hours) Vital Signs Temp Pulse Pulse Resp BP Pulse Ox 11/11/20 14:52 36.4 C L 108 H 14 106/74 97 11/11/20 11:19 117 H 18 99 11/11/20 07:00 36.7 C 111 H 16 105/76 97 (1) Acute pancreatitis Acute pancreatitis complication: unspecified Pancreatitis type: unspecified pancreatitis type Qualified Code(s): K85.90 - Acute pancreatitis without necrosis or infection, unspecified
[2020-11-12] MEDS: HYDROmorphone INJ 2 MG/ML SYR/VIAL IV PRN ×11 (02:17→23:45)
[2020-11-12] MEDS: HEPARIN 100 UNIT/ML 5ML FLUSH FLUSH PRN ×11 (02:17→23:46)
[2020-11-12] MEDS: DOCUSATE SODIUM/SENNA 50/8.6MG TAB PO SCH ×2 (08:08→19:52)
[2020-11-12] MEDS: FOLIC ACID 1 MG TAB PO SCH (08:08)
[2020-11-12] MEDS: FLUDROCORTISONE ACETATE 0.1 MG TAB PO SCH (08:08)
[2020-11-12] MEDS: levETIRAcetam 500 MG TAB PO SCH ×2 (08:08→19:53)
[2020-11-12] MEDS: MAGNESIUM CHLORIDE 64MG DELAYED REL TAB PO SCH ×2 (08:08→19:52)
[2020-11-12] MEDS: MIDODRINE HCL 10 MG TAB PO SCH ×3 (08:08→17:24)
[2020-11-12] MEDS: guaiFENesin 600 MG TABCR PO SCH ×2 (08:08→19:53)
[2020-11-12] MEDS: predniSONE 20 MG TAB PO SCH (08:08)
[2020-11-12] MEDS: POTASSIUM CHLORIDE 20 MEQ/15 ML UDC PO SCH (08:16)
[2020-11-12] MEDS: MoRPHine SULFATE CR 15 MG TABCR PO SCH ×2 (08:16→19:56)
[2020-11-12] MEDS: METOCLOPRAMIDE HCL 5 MG TABLET PO SCH ×3 (08:17→17:25)
[2020-11-12] MEDS: POLYETHYLENE (MIRALAX) 17 GM PACK PO SCH (08:17)
[2020-11-12] MEDS: LORazepam 1 MG TAB SL PRN (10:31)
--- NOTE | 2020-11-12 12:30 | Palliative Care Progress Note ---
Date of Service November 12, 2020 Assessment & Plan (1) Epigastric abdominal pain: She consistently has escalating doses of opioid daily. We discussed decreasing frequency of dosing in anticipation of determining her outpatient medication regimen. We again discussed the impact of emotional pain as well. She has been using lorazepam as needed and does acknowledge that abdominal pain is worse when she is particularly anxious. (2) Anxiety: Continue lorazepam as needed. (3) Palliative care encounter: She has said that she will make her decision today regarding her preference for treatment, however, she is waiting for her family to arrive to discuss further. We reviewed what her most important priority is which she says is her family. We talked about hospice providing support and symptom management at home to help her enjoy time with her family. She does also say that her gut reaction is to pursue second opinion and that family members have been encouraging her to do this. I reassured her that we will respect whatever decision she makes. (4) Adenocarcinoma of lung: (5) Pancreatic mass: Admission and Anticipated Discharge Date Admission Date: October 30, 2020 Subjective Resting comfortably. Emotionally labile and tearful when talking about decision making. She has had approximately 520mg OME in the last 24 hours. Review of Systems Review of Systems: [place] Symptom Assessment Scale Pain 1/3 Dyspnea 0/3 Anxiety 2/3 Nausea 0/3 Fatigue 1/3 Drowsiness 0/3 Palliative Performance Score 50% Physical Exam Constitutional: no acute distress Respiratory: normal respiratory effort; no labored breathing O2 NC Gastrointestinal (Abdomen): Inspection/Auscultation: abdomen not distended Musculoskeletal: Extremities: extremities normal to inspection Neurologic: awake; not confused Psychiatric: Orientation: alert and oriented x 3 Affect: + tearful affect Mood: + anxious mood Results & Data ([facility]) Vital Signs (Past 12 Hours) Vital Signs Temp Pulse Resp BP Pulse Ox 11/12/20 07:26 98.4 F 105 H 16 90/65 L 96 PG Care Time/CCT Total # of Minutes Spent Total Time Spent with Patient: Total time spent is greater than 50% in coordination of care (as documented) at patient's floor/unit and/or counseling patient:total time spent 35 minutes with more than 50% of time spent on goals of care, symptom management. Coding Level of Care Code 57163 Subseq Hosp Care Lvl 3 Diagnoses Epigastric abdominal pain R10.13 Anxiety F41.9 Palliative care encounter Z51.5 Adenocarcinoma of lung C34.90 Laterality: unspecified laterality Pancreatic mass K86.89 (1) Adenocarcinoma of lung Laterality: unspecified laterality Qualified Code(s): C34.90 - Malignant neoplasm of unspecified part of unspecified bronchus or lung
[2020-11-12] MEDS: ALBUT/IPRATROP 3MG/0.5MG NEB 3 ML VIAL NEB PRN (16:43)
--- NOTE | 2020-11-12 17:49 | Hospitalist Progress Note ---
Date of Service November 12, 2020 Assessment & Plan (1) Acute pancreatitis: Metastatic Pancreatic mass /cancer Present on admission with worsening abdominal pain CT ABD:Patent biliary enteric stent with secondary pneumobilia. Persistent mild dilatation of pancreatic duct with a distal pancreatic duct cut off sign. Persistent mesenteric susanna hepatis and retroperitoneal lymphadenopathy. Persistent right posterior bladder nodule. Ill-defined areas of decreased right renal attenuation suspicious for pyelonephritis. Clinical follow-up recommended. Stable adrenal masses. Patchy groundglass nodular opacities within the right lower lobe, likely infectious/inflammatory Continues to have severe pain from metastatic pancreatic mass that required IV Dilaudid Tolerated diet Continue pain control Suspected pyelonephritis Incidental finding on CT scan Urine culture No growth Received Rocephin for 3 days, then abx was discontinued Dyspnea CXR showed Redemonstration of the right upper lobe mass. Apparent adjacent opacity within the right lung. This is probably due to overlying soft ti ssue/implant however adjacent airspace opacity cannot be excluded. Will add duoneb prn Continue monitor Metastatic lung cancer H/O NSCLC Extensive lymphadenopathy to neck, chest, abdomen, brain metastasis and bilateral adrenal gland metastatic disease S/P stereotactic radiosurgery/brain tumor resection On chemotherapy On chronic Steroid therapy: Discussed with (on prednisone taper sec ondary to possible acute hepatitis previously. Advised to taper down prednisone in 2 week period) Palliative care on board for goal of care Poor prognosis as per oncology Appreciate radiation oncology input Patient had a virtual meeting with oncology Dr. Barillas yesterday Dr. Barillas explained to the patient about her cancer progress and the prognosis is poor Oncology said there is no curable treatment for cancer and no plan for further chemotherapy At this point recommend palliative management or transition to hospice Patient is not ready to transition to comfort care, she wants to continue to fighting She would like to get a second opinion from oncology, sister will call [facility] to schedule for second opinion Phone number provided to the patient to call [facility] to schedule for the second opinion We will consider to transition to oral narcotic Orthostatic hypotension On fludrocortisone, midodrine Anemia of chronic disease Hb stable Monitor H/O Seizure Continue Keppra DVT Px: SCDs Re: Brain Mets Code Status Full Code Disposition very poor prognosis intractable abdominal /back pain from metastatic malignancy pt is hoping to return home once pain is controlled with PO meds Admission and Anticipated Discharge Date Admission Date: October 30, 2020 Subjective Patient was seen and examined for follow-up of pain Lying in bed with no distress with at bedside She wants to get a second opinion from Oncology at [facility] I tried to call [facility] to arrange for appointment for second opinion. I gave her the phone number to schedule for the second opinion at [facility] She said that she continues to have a lot of pain in her abdominal Denies any chest pain, palpitation, dizziness Review of Systems Review of Systems: All systems reviewed & are unremarkable except as noted in Subjective Physical Exam Physical Exam: General- No acute distress Head- atraumatic Eyes- PERRL, EOMI, ENT- oropharynx clear Neck- supple, no JVD Lungs- Coarse BS Heart- regular rhythm; no murmur Abdomen- normal bowel sounds, soft, +tender Extremities- no calf tenderness Neuro- alert, oriented x 3; PERRL, EOMI; no facial palsy; no dysarthria Skin- warm & dry Results & Data Results & Data ([facility]) Vital Signs (Past 12 Hours) Vital Signs Temp Pulse Resp BP Pulse Ox 11/12/20 17:23 109/75 11/12/20 17:06 37.0 C 114 H 18 117/80 99 11/12/20 16:43 110 H 18 98 11/12/20 12:44 109/78 11/12/20 07:26 36.9 C 105 H 16 90/65 L 96 (1) Acute pancreatitis Acute pancreatitis complication: unspecified Pancreatitis type: unspecified pancreatitis type Qualified Code(s): K85.90 - Acute pancreatitis without necrosis or infection, unspecified
[2020-11-13] MEDS: HYDROmorphone INJ 2 MG/ML SYR/VIAL IV PRN ×6 (01:38→12:38)
[2020-11-13] MEDS: HEPARIN 100 UNIT/ML 5ML FLUSH FLUSH PRN ×5 (01:38→12:40)
[2020-11-13] MEDS: LORazepam 1 MG TAB SL PRN ×2 (01:38→18:00)
[2020-11-13] MEDS: MoRPHine SULFATE CR 15 MG TABCR PO SCH ×2 (08:28→19:44)
[2020-11-13] MEDS: MIDODRINE HCL 10 MG TAB PO SCH ×3 (08:29→17:55)
[2020-11-13] MEDS: METOCLOPRAMIDE HCL 5 MG TABLET PO SCH ×3 (08:29→16:37)
[2020-11-13] MEDS: levETIRAcetam 500 MG TAB PO SCH ×2 (08:30→19:44)
[2020-11-13] MEDS: guaiFENesin 600 MG TABCR PO SCH ×2 (08:30→19:44)
[2020-11-13] MEDS: DOCUSATE SODIUM/SENNA 50/8.6MG TAB PO SCH ×2 (08:30→19:43)
[2020-11-13] MEDS: FLUDROCORTISONE ACETATE 0.1 MG TAB PO SCH (08:30)
[2020-11-13] MEDS: FOLIC ACID 1 MG TAB PO SCH (08:30)
[2020-11-13] MEDS: MAGNESIUM CHLORIDE 64MG DELAYED REL TAB PO SCH ×2 (08:30→19:43)
[2020-11-13] MEDS: predniSONE 20 MG TAB PO SCH (08:30)
[2020-11-13] MEDS: POTASSIUM CHLORIDE 20 MEQ/15 ML UDC PO SCH (08:30)
[2020-11-13] MEDS: POLYETHYLENE (MIRALAX) 17 GM PACK PO SCH (08:36)
--- NOTE | 2020-11-13 12:18 | Palliative Care Progress Note ---
Date of Service November 13, 2020 Assessment & Plan (1) Epigastric abdominal pain: She consistently has escalating doses of opioid daily, currently on MS Contin 30 mg PO Q12. She has Dilaudid 2 mg IV Q2 PRN ordered and has used Twelve doses, equaling 24 mg over the past 24 hours. We again discussed the impact of emotional pain as well and she has been more receptive to the SL Ativan that she has ordered, taking two doses over the past 24 hours. She states that her abdominal pain is worse when she is particularly anxious. We discussed that if she wanted to consistently stay in the hospital and work towards a transition home, we need to switch her to a Dilaudid WEB WEAVER for better pain control abd evaluation of her pain management. Being on a Dilaudid WEB WEAVER will allow us to evaluate her needs better and acclimate her to a transition home on hospice. She was receptive to this. Dilaudid WEB WEAVER ordered and started with the followinmg IV hourly basal with 0.25 mg bolus and a [address] 1.5 mg maximum hourly dose. Dilaudid 2mg IV Q2 PRN discontinued. (2) Anxiety: Continue lorazepam as needed. (3) Palliative care encounter: We had a very lengthy and aris conversation reiterating all of our previous encounters. We reviewed what her most important priority is which she says is her family, which continues to be consistent. We talked about hospice providing support and symptom management at home to help her enjoy time with her family. Her kids do want her to seek a second opinion, which can be done outpatient. The hospitalist has attempted to get some contact started with [facility] unsuccessfully. The hospitalist will provide her with the contact information. The patient stated that she wants to have 'two more days' to decide her treatment route. Discussed that she can go home on Hospice and always revoke should a treatment option present itself to her. I did talk to Esteban on the phone at [phone] and later in person with Kristine. He said that everyone wants her home. She said her friends and family want to see her. He recognizes the emotional pain that this endures. I encouraged him and the staff to say each time they go into the room that 'we are going home on to see your family', as this may help her process the information. While she does have decision making capacity, she also is receiving large amounts of narcotics that may cause altered decision making with certain scenarios and may cloud her ability to process a large decision like this and utilizing family to assist with decision making is important at this point. Pt is a full code, but patient could return home with hospice as a full code. As discussed above, the amount of pain and symptom management that Josi has required both referred, visceral, and emotional does contribute to her being at a difficult juncture in her cancer journey. She has been quite resistant to hospice, as she agreed, that once she decides to go home with hospice, she knows that 'is it'. Having control has been very important to her on her journey and I reiterated that this is a way she can take control of her disease, deciding how she wants the end of her life to look. Based on the high doses and frequency of opioids with uncontrolled pain Josi is having and requiring, along with the emotional pain and needs, she may benefit from a GIP admission through hospice to start developing a relationship with Hospice and transition home with them over the next day or two. I spoke with Josi, Esteban, and Kristine all at the same time about this and all were in agreement to move forward with an evaluation for GIP tomorrow at 1430 with [facility]. Case management has been in touch with [facility] and will be here tomorrow at 1430. Hospitalist and family aware. Palliative will follow. (4) Adenocarcinoma of lung: Follows Dr. Barillas. (5) Pancreatic mass: Admission and Anticipated Discharge Date Admission Date: October 30, 2020 Subjective patient lying in her bed resting. Opens her eyes to verbal stimuli. Pt tearful during encounter On MS Contin 30 mg po Q12 On Dilaudid IV 2 mg Q2 PRN. Converted to Dilaudid WEB WEAVER this afternoon. She said that she continues to have a lot of pain in her abdominal that radiates into her back. Denies any chest pain, palpitation, dizziness See A/P for further details Review of Systems Review of Systems: [place] Symptom Assessment Scale Pain 2/3 Dyspnea 0/3 Anxiety 3/3 Nausea 0/3 Fatigue 1/3 Drowsiness 0/3 Palliative Performance Score 50% Physical Exam Constitutional: healthy appearing and cooperative ENMT: Nose: + dry nasal mucous membranes Respiratory: Auscultation: + diminished lung sounds Cardiovascular: RRR, no murmur, no edema Gastrointestinal (Abdomen): Percussion/Palpation: + abdomen tender and abdomen soft Skin: + pallor Psychiatric: Orientation: alert and oriented x 3 Results & Data ([facility]) Vital Signs (Past 12 Hours) Vital Signs Temp Pulse Resp BP Pulse Ox 11/13/20 05:34 36.6 C 93 H 16 105/71 94 PG Care Time/CCT Total # of Minutes Spent Total Time Spent with Patient: Total time spent is greater than 50% in coordination of care (as documented) at patient's floor/unit and/or counseling patient: 65 minutes with > 50% of that time spent assessing the patient, discussing symptom and pain management with the patient, holding a lengthy discussion with the patients and collaborating with the IDT Coding Level of Care Code ADVNCD CARE PLAN ADDL 30 MIN Diagnoses Epigastric abdominal pain R10.13 Anxiety F41.9 Palliative care encounter Z51.5 Adenocarcinoma of lung C34.90 Laterality: unspecified laterality Pancreatic mass K86.89 Time Spent (min) 65 (1) Adenocarcinoma of lung Laterality: unspecified laterality Qualified Code(s): C34.90 - Malignant neoplasm of unspecified part of unspecified bronchus or lung
[2020-11-13] MEDS ORDERED: NALOXONE HCL 0.4 MG/1 ML VIAL/CARP IV PRN (12:58)
[2020-11-13] MEDS ORDERED: HYDROmorphone PCA 30 MG/30 ML IV SCH (13:00)
[2020-11-13] MEDS: HYDROmorphone PCA 30 MG/30 ML IV PRN (13:40)
[2020-11-13] MEDS: SODIUM CHLORIDE 0.9% 1000ML 1,000 ML IV SCH (13:44)
[2020-11-13] MEDS: ALBUT/IPRATROP 3MG/0.5MG NEB 3 ML VIAL NEB PRN (15:05)
--- NOTE | 2020-11-13 19:15 | Hospitalist Progress Note ---
Date of Service November 13, 2020 Assessment & Plan (1) Acute pancreatitis: Metastatic Pancreatic mass /cancer Present on admission with worsening abdominal pain CT ABD:Patent biliary enteric stent with secondary pneumobilia. Persistent mild dilatation of pancreatic duct with a distal pancreatic duct cut off sign. Persistent mesenteric susanna hepatis and retroperitoneal lymphadenopathy. Persistent right posterior bladder nodule. Ill-defined areas of decreased right renal attenuation suspicious for pyelonephritis. Clinical follow-up recommended. Stable adrenal masses. Patchy groundglass nodular opacities within the right lower lobe, likely infectious/inflammatory Continues to have severe pain from metastatic pancreatic mass that required IV Dilaudid Tolerated diet Continue pain control Suspected pyelonephritis Incidental finding on CT scan Urine culture No growth Received Rocephin for 3 days, then abx was discontinued Dyspnea CXR showed Redemonstration of the right upper lobe mass. Apparent adjacent opacity within the right lung. This is probably due to overlying soft tis jose/implant however adjacent airspace opacity cannot be excluded. Duoneb prn Saturating well on room air Metastatic lung cancer H/O NSCLC Extensive lymphadenopathy to neck, chest, abdomen, brain metastasis and bilateral adrenal gland metastatic disease S/P stereotactic radiosurgery/brain tumor resection On chemotherapy On chronic Steroid therapy: Discussed with (on prednisone taper se condary to possible acute hepatitis previously. Advised to taper down prednisone in 2 week period) Palliative care on board for goal of care Poor prognosis as per oncology Appreciate radiation oncology input Patient had a virtual meeting with oncology Dr. Barillas yesterday Dr. Barillas explained to the patient about her cancer progress and the prognosis is poor Oncology said there is no curable treatment for cancer and no plan for further chemotherapy At this point recommend palliative management or transition to hospice Patient is not ready to transition to comfort care, she wants to continue to fighting She would like to get a second opinion from oncology, sister will call [facility] to schedule for second opinion Phone number provided to the patient to call [facility] to schedule for the second opinion Helped patient to sign consent for medical record release to send to [facility] We will consider to transition to oral narcotic Case discussed with palliative care that plan to transition to p.o. narcotic on and discharged home Referral was also placed for hospice while patient is waiting for second opinion Orthostatic hypotension On fludrocortisone, midodrine Anemia of chronic disease Hb stable Monitor H/O Seizure Continue Keppra DVT Px: SCDs Re: Brain Mets Code Status Full Code Disposition Very poor prognosis Admission and Anticipated Discharge Date Admission Date: October 30, 2020 Subjective Patient was seen and examined for follow-up of abdominal pain Lying in bed with no distress with and sister at bedside Patient said they were able to get in touch with [facility] for second opinion I helped her to complete the consent for medical record release to fax her medical document to [facility] she will also complete a consent to get a medical record release from [facility] I also advised patient to get a referral from her PCP to fax to [facility] Review of Systems Review of Systems: All systems reviewed & are unremarkable except as noted in Subjective Physical Exam Physical Exam: General- No acute distress Head- atraumatic Eyes- PERRL, EOMI, ENT- oropharynx clear Neck- supple, no JVD Lungs- Coarse BS Heart- regular rhythm; no murmur Abdomen- normal bowel sounds, soft, +tender Extremities- no calf tenderness Neuro- alert, oriented x 3; PERRL, EOMI; no facial palsy; no dysarthria Skin- warm & dry Results & Data Results & Data ([facility]) Vital Signs (Past 12 Hours) Vital Signs Temp Pulse Pulse Resp BP Pulse Ox 11/13/20 17:48 36.5 C 108 H 16 110/76 96 11/13/20 16:12 36.6 C 113 H 18 107/75 100 11/13/20 15:05 84 84 18 100 11/13/20 14:49 37.1 C 94 H 16 103/77 96 11/13/20 13:47 105 H 16 106/76 99 (1) Acute pancreatitis Acute pancreatitis complication: unspecified Pancreatitis type: unspecified pancreatitis type Qualified Code(s): K85.90 - Acute pancreatitis without necrosis or infection, unspecified
[2020-11-14] MEDS: LORazepam 1 MG TAB SL PRN ×3 (05:38→18:29)
[2020-11-14] MEDS: METOCLOPRAMIDE HCL 5 MG TABLET PO SCH ×3 (06:55→15:44)
[2020-11-14] MEDS: FOLIC ACID 1 MG TAB PO SCH (08:24)
[2020-11-14] MEDS: predniSONE 20 MG TAB PO SCH (08:24)
[2020-11-14] MEDS: MIDODRINE HCL 10 MG TAB PO SCH ×3 (08:24→17:51)
[2020-11-14] MEDS: guaiFENesin 600 MG TABCR PO SCH ×2 (08:24→19:49)
[2020-11-14] MEDS: DOCUSATE SODIUM/SENNA 50/8.6MG TAB PO SCH ×2 (08:24→19:49)
[2020-11-14] MEDS: MAGNESIUM CHLORIDE 64MG DELAYED REL TAB PO SCH ×2 (08:24→19:50)
[2020-11-14] MEDS: levETIRAcetam 500 MG TAB PO SCH ×2 (08:24→19:50)
[2020-11-14] MEDS: POTASSIUM CHLORIDE 20 MEQ/15 ML UDC PO SCH (08:24)
[2020-11-14] MEDS: FLUDROCORTISONE ACETATE 0.1 MG TAB PO SCH (08:24)
[2020-11-14] MEDS: POLYETHYLENE (MIRALAX) 17 GM PACK PO SCH (08:25)
[2020-11-14] MEDS: MoRPHine SULFATE CR 15 MG TABCR PO SCH ×2 (08:37→19:57)
[2020-11-14 08:40] LABS: Hematocrit (blood only) 33.8 % (37-47); Hemoglobin 11.5 g/dL (12.0-16.0); Mean Corpuscular Hemoglobin 32.7 pg (25-34); Mean Platelet Volume 9.9 fL (7.4-10.4); Platelet Count 182 K/uL (130-400); RDW Coefficient of Variation 13.2 % (11.5-14.5); RDW Standard Deviation 45.9 fL (36.4-46.3); Red Blood Count 3.52 M/uL (4.2-5.4); White Blood Count 9.05 K/uL (4.8-10.8)
[2020-11-14 08:52] LABS: BUN Creatinine Ratio 14.3 (10-20); Calcium 9.1 mg/dl (8.5-10.1); Creatinine Clr Calc Pharmacy 172.5 ml/min; Est GFR (African American) 140.2 ml/min; Potassium 3.1 mmol/L (3.5-5.1)
[2020-11-14 08:53] LABS: Phosphorus 2.6 mg/dl (2.5-4.9)
[2020-11-14] MEDS ORDERED: POTASSIUM CHLORIDE CRTAB 20 MEQ TABCR PO STA (11:48)
--- NOTE | 2020-11-14 11:49 | Hospitalist Progress Note ---
Date of Service November 14, 2020 Assessment & Plan (1) Acute pancreatitis: Metastatic Pancreatic mass /cancer Present on admission with worsening abdominal pain CT ABD:Patent biliary enteric stent with secondary pneumobilia. Persistent mild dilatation of pancreatic duct with a distal pancreatic duct cut off sign. Persistent mesenteric susanna hepatis and retroperitoneal lymphadenopathy. Persistent right posterior bladder nodule. Ill-defined areas of decreased right renal attenuation suspicious for pyelonephritis. Clinical follow-up recommended. Stable adrenal masses. Patchy groundglass nodular opacities within the right lower lobe, likely infectious/inflammatory Continues to have severe pain from metastatic pancreatic mass that required IV Dilaudid Tolerated diet Continue pain control - CONTRACT AGENT pump Suspected pyelonephritis Incidental finding on CT scan Urine culture No growth Received Rocephin for 3 days, then abx was discontinued Dyspnea CXR showed Redemonstration of the right upper lobe mass. Apparent adjacent opacity within the right lung. This is probably due to overlying soft tissue/implant however adjacent airspace opacity cannot be excluded. Duoneb prn Saturating well on room air Metastatic lung cancer H/O NSCLC Extensive lymphadenopathy to neck, chest, abdomen, brain metastases and bilateral adrenal gland metastatic disease S/P stereotactic radiosurgery/brain tumor resection On chemotherapy On chronic Steroid therapy: Discussed with (on prednisone taper secondary to possible acute hepatitis previously. Advised to taper down prednisone in 2 week period) Palliative care consulted for goal of care Poor prognosis as per oncology Appreciate radiation oncology input Patient had a virtual meeting with oncology Dr. Eran Barillas explained to the patient about her cancer progress and the prognosis is poor Oncology said there is no curable treatment for cancer and no plan for further chemotherapy At this point recommend palliative management or transition to hospice Patient is not ready to transition to comfort care, she wants to continue to fight She would like to get a second opinion from oncology, sister will call [facility] to schedule for second opinion Phone number provided to the patient to call [facility] to schedule for the second opinion prior hospitalist helped patient to sign consent for medical record release to send to [facility] Case discussed with palliative care - plan to DC on home w/ hospice on CONTRACT AGENT pump Referral was also placed for hospice while patient is waiting for second opinion Patient seen by [facility] home hospice nurse today 11/14/20 Orthostatic hypotension On fludrocortisone, midodrine Anemia of chronic disease Hb stable Monitor H/O Seizure Continue Keppra DVT Px: SCDs Re: Brain Mets Code Status Full Code Disposition : Very poor prognosis Plan to discharge home with home hospice Admission and Anticipated Discharge Date Admission Date: October 30, 2020 Subjective Patient was seen and examined for follow-up of abdominal pain Lying in bed with no distress with and sister at bedside Currently says that she feels comfortable on CONTRACT AGENT pump Patient seen by palliative medicine, and also hospice nurse today Likely discharge home with home hospice, on CONTRACT AGENT pump tomorrow Per previous hospitalist, patient said they were able to get in touch with [facility] for second opinion helped her to complete the consent for medical record release to fax her medical document to [facility] she will also complete a consent to get a medical record release from [facility] She was also advised to get a referral from her PCP to fax to [facility] Review of Systems Review of Systems: All systems reviewed & are unremarkable except as noted in HPI & below Physical Exam Physical Exam: General- No acute distress Head- atraumatic Eyes- PERRL, EOMI, ENT- oropharynx clear Neck- supple, no JVD Lungs- normal effort, no labored breathing, coarse BS Heart- regular rhythm; no murmur Abdomen- normal bowel sounds, soft, +tender Extremities- no calf tenderness Neuro- alert, oriented x 3; PERRL, EOMI; no facial palsy; no dysarthria Skin- warm & dry Results & Data Results & Data ([facility]) Vital Signs (Past 12 Hours) Vital Signs Temp Pulse Resp BP Pulse Ox 11/14/20 10:14 36.8 C 87 16 107/74 96 11/14/20 07:31 36.7 C 102 H 18 103/71 96 11/14/20 02:58 36.6 C 104 H 16 97/65 L 94 11/13/20 23:50 36.7 C 104 H 16 99/68 L 95 Laboratory Results 11/14/20 11/14/20 Range/Units 07:58 07:58 WBC 9.05 (4.8-10.8) K/uL RBC 3.52 L (4.2-5.4) M/uL Hgb 11.5 L (12.0-16.0) g/dL Hct 33.8 L (37-47) % MCV 96.0 (80-100) fL MCH 32.7 (25-34) pg MCHC 34.0 (32-36) g/dL RDW Std Deviation 45.9 (36.4-46.3) fL RDW Coeff of Suri 13.2 (11.5-14.5) % Plt Count 182 (130-400) K/uL MPV 9.9 (7.4-10.4) fL Sodium 138 (136-145) mmol/L Potassium 3.1 L (3.5-5.1) mmol/L Chloride 104 (98-107) mmol/L Carbon Dioxide 26 (21-32) mmol/L Anion Gap 8.0 (3-11) BUN 7 (7-18) mg/dl Creatinine 0.46 L (0.6-1.2) mg/dl Est Cr Clr Drug Dosing 172.5 ml/min Est GFR ( Amer) 140.2 ml/min Est GFR (Non-Af Amer) 121.0 ml/min BUN/Creatinine Ratio 14.3 (10-20) Glucose 97 (70-99) mg/dl Calcium 9.1 (8.5-10.1) mg/dl Phosphorus 2.6 (2.5-4.9) mg/dl Magnesium 2.0 (1.8-2.4) mg/dl Medications Administered Current Inpatient Medications Acetaminophen (Acetaminophen 325 Mg Tab) 325 mg PO Q6H PRN PRN Reason: fever or pain Stop: 11/29/20 21:51 Albuterol (Albut/Ipratrop 3mg/0.5mg Neb 3 Ml Vial) 3 ml NEB QIDR PRN PRN Reason: sob Stop: 12/10/20 10:59 Last Admin: 11/13/20 15:05 Dose: 3 ml Documented by: Docusate Sodium (Docusate Sodium 100 Mg Cap) 100 mg PO BID PRN PRN Reason: Constipation Stop: 11/29/20 21:51 Last Admin: 11/14/20 08:24 Dose: 100 mg Documented by: Fludrocortisone Acetate (Fludrocortisone Acetate 0.1 Mg Tab) 0.1 mg PO [facility] Stop: 11/30/20 08:59 Last Admin: 11/14/20 08:24 Dose: 0.1 mg Documented by: Folic Acid (Folic Acid 1 Mg Tab) 1 mg PO [facility] Stop: 11/30/20 08:59 Last Admin: 11/14/20 08:24 Dose: 1 mg Documented by: Guaifenesin (Guaifenesin 600 Mg Tabcr) 1,200 mg PO Q12 [facility] Stop: 12/04/20 08:59 Last Admin: 11/14/20 08:24 Dose: 1,200 mg Documented by: Guaifenesin/Codeine Phosphate (Guaifenesin/Codeine 100mg/10mg 5ml Udc) 5 ml PO Q6H PRN PRN Reason: Cough Stop: 12/04/20 07:41 Last Admin: 11/06/20 02:48 Dose: 5 ml Documented by: Heparin Sodium (Porcine) (Heparin 100 Unit/Ml 5ml Flush) 5 ml FLUSH PRN PRN PRN Reason: Flush Stop: 11/30/20 01:35 Last Admin: 11/13/20 12:40 Dose: 5 ml Documented by: Hydromorphone HCl (Hydromorphone Netsuite Consultant 30 Mg/30 Ml) 30 mg IV PRN PRN; Protocol PRN Reason: CONTRACT AGENT Pain Titration Stop: 11/27/20 13:14 Last Admin: 11/13/20 13:40 Dose: 30 mg Documented by: Promethazine HCl 12.5 mg/ (Sodium Chloride) 50.5 mls @ 202 mls/hr IV Q6H PRN PRN Reason: Nausea And Vomiting Stop: 11/29/20 21:51 Sodium Chloride (Nss 1000ml) 1,000 mls @ 15 mls/hr IV .Q24H [facility] Stop: 11/27/20 13:14 Last Admin: 11/13/20 13:44 Dose: 30 mls/hr Documented by: Levetiracetam (Levetiracetam 500 Mg Tab) 1,500 mg PO BID [facility] Stop: 11/29/20 22:59 Last Admin: 11/14/20 08:24 Dose: 1,500 mg Documented by: Lorazepam (Lorazepam 1 Mg Tab) 1 mg SL Q6H PRN PRN Reason: Anxiety Stop: 12/05/20 21:14 Last Admin: 11/14/20 05:38 Dose: 1 mg Documented by: Magnesium Chloride (Magnesium Chloride 64mg Delayed Rel Tab) 64 mg PO BID [facility] Stop: 11/29/20 22:59 Last Admin: 11/14/20 08:24 Dose: 64 mg Documented by: Metoclopramide HCl (Metoclopramide Hcl 5 Mg Tablet) 5 mg PO AC [facility] Stop: 11/30/20 07:29 Last Admin: 11/14/20 06:55 Dose: Not Given Documented by: Midodrine (Midodrine Hcl 10 Mg Tab) 10 mg PO TID@0800,1200,1700 [facility] Stop: 11/30/20 07:59 Last Admin: 11/14/20 08:24 Dose: 10 mg Documented by: Miscellaneous (Lock-Out Netsuite Consultant Titration ) 1 ea N/A ONCE PRN PRN Reason: CONTRACT AGENT Lock-Out Titration x 1 Stop: 11/27/20 12:57 Morphine Sulfate (Morphine Sulfate Cr 15 Mg Tabcr) 30 mg PO Q12H [facility] Stop: 11/24/20 08:59 Last Admin: 11/14/20 08:37 Dose: 30 mg Documented by: Naloxone HCl (Naloxone Hcl Inj 1 Mg/Ml 2ml Syr) 4 mg INTNAS Q3M PRN PRN Reason: opioid overdose Stop: 11/29/20 23:54 Naloxone HCl (Naloxone Hcl 0.4 Mg/1 Ml Vial/Carp) 0.1 mg IV Q5M PRN; Protocol PRN Reason: Oversedation/Resp Depression Stop: 11/19/20 09:30 Naloxone HCl (Naloxone Hcl 0.4 Mg/1 Ml Vial/Carp) 0.1 mg IV Q5M PRN; Protocol PRN Reason: Oversedation/Resp Depression Stop: 11/27/20 12:57 Polyethylene Glycol (Polyethylene (Miralax) 17 Gm Pack) 17 gm PO QID PRN PRN Reason: Constipation Stop: 11/29/20 21:51 Polyethylene Glycol (Polyethylene (Miralax) 17 Gm Pack) 17 gm PO DAILY [facility] Stop: 11/30/20 11:59 Last Admin: 11/14/20 08:25 Dose: 17 gm Documented by: Potassium Chloride (Potassium Chloride 20 Meq/15 Ml Udc) 20 meq PO DAILY [facility] Stop: 11/30/20 08:59 Last Admin: 11/14/20 08:24 Dose: 20 meq Documented by: Potassium Chloride (Potassium Chloride Crtab 20 Meq Tabcr) 40 meq PO NOW STA Stop: 11/14/20 11:49 Prednisone (Prednisone 20 Mg Tab) 20 mg PO DAILY [facility] Stop: 12/14/20 08:59 Last Admin: 11/14/20 08:24 Dose: 20 mg Documented by: Senna/Docusate Sodium (Docusate Sodium/Senna 50/8.6mg Tab) 1 tab PO BID [facility] Stop: 12/06/20 08:59 Last Admin: 11/14/20 08:24 Dose: 1 tab Documented by: (1) Acute pancreatitis Acute pancreatitis complication: unspecified Pancreatitis type: unspecified pancreatitis type Qualified Code(s): K85.90 - Acute pancreatitis without necrosis or infection, unspecified
--- NOTE | 2020-11-14 13:02 | Palliative Care Progress Note ---
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 We reviewed the concept of her having continuous dose and not needing to push the button unless pain is not controlled. She expressed some concern about bulky pump attached to IV pole. We discussed home pump being much more portable and discreet. She has declined all adjuvant therapies. Monitor until tomorrow on AIRCRAFT LAYOUT WORKER. If pain remains controlled, anticipate discharge home with hospice tomorrow. (2) Anxiety: We again discussed treating anxiety with lorazepam rather than AIRCRAFT LAYOUT WORKER. She does get relief with lorazepam. (3) Palliative care encounter: Plan for discharge home with hospice tomorrow. She and her family with be meeting with hospice later today which will hopefully relieve some of her concerns. She denied any other questions at this time. (4) Adenocarcinoma of lung: (5) Pancreatic mass: Admission and Anticipated Discharge Date Admission Date: October 30, 2020 Subjective Now on hydromorphone AIRCRAFT LAYOUT WORKER. Currently at 1mg/hr basal rate with 0.25mg bolus dose. Per RN, she has had 7 bolus doses in the last four hours. When I asked her how its working, she pushes the button and says "Look, nothing happens". She rates pain as 6/10 which she considers to be tolerable level. Review of Systems Review of Systems: [place] Symptom Assessment Scale Pain 2/3 Dyspnea 0/3 Nausea 0/3 Anxiety 2/3 Fatigue 1/3 Drowsiness 0/3 Palliative Performance Score 50% Physical Exam Constitutional: no acute distress repositions in bed with no facial grimace Respiratory: normal respiratory effort; no labored breathing moist cough Gastrointestinal (Abdomen): Inspection/Auscultation: abdomen not distended Musculoskeletal: Extremities: extremities normal to inspection Neurologic: awake; not confused Results & Data ([facility]) Vital Signs (Past 12 Hours) Vital Signs Temp Pulse Resp BP Pulse Ox 11/14/20 10:14 98.2 F 87 16 107/74 96 11/14/20 07:31 98.1 F 102 H 18 103/71 96 11/14/20 02:58 97.9 F 104 H 16 97/65 L 94 PG Care Time/CCT Total # of Minutes Spent Total Time Spent with Patient: Total time spent is greater than 50% in coordination of care (as documented) at patient's floor/unit and/or counseling patient: Coding Level of Care Code 46678 Subseq Hosp Care Lvl 2 Diagnoses Abdominal pain, epigastric R10.13 Anxiety F41.9 Palliative care encounter Z51.5 Adenocarcinoma of lung C34.90 Laterality: unspecified laterality Pancreatic mass K86.89 (1) Adenocarcinoma of lung Laterality: unspecified laterality Qualified Code(s): C34.90 - Malignant neoplasm of unspecified part of unspecified bronchus or lung
[2020-11-14] MEDS: SODIUM CHLORIDE 0.9% 1000ML 1,000 ML IV SCH ×2 (13:43→19:58)
[2020-11-14] MEDS: HYDROmorphone PCA 30 MG/30 ML IV PRN (15:40)
[2020-11-14] MEDS ORDERED: POTASSIUM CHLORIDE 20 MEQ/15 ML UDC PO STA (17:33)
[2020-11-15] MEDS: LORazepam 1 MG TAB SL PRN ×2 (05:59→15:13)
[2020-11-15] MEDS: METOCLOPRAMIDE HCL 5 MG TABLET PO SCH ×3 (07:54→15:13)
[2020-11-15] MEDS ORDERED: HYDROmorphone PCA 30 MG/30 ML IV PRN (08:31)
[2020-11-15] MEDS: HYDROmorphone PCA 30 MG/30 ML IV PRN ×2 (08:48→11:27)
[2020-11-15] MEDS: MoRPHine SULFATE CR 15 MG TABCR PO SCH (08:50)
[2020-11-15] MEDS: FLUDROCORTISONE ACETATE 0.1 MG TAB PO SCH (08:50)
[2020-11-15] MEDS: levETIRAcetam 500 MG TAB PO SCH (08:50)
[2020-11-15] MEDS: MIDODRINE HCL 10 MG TAB PO SCH ×2 (08:51→12:10)
[2020-11-15] MEDS: POLYETHYLENE (MIRALAX) 17 GM PACK PO SCH ×2 (08:52→08:59)
[2020-11-15] MEDS: guaiFENesin 600 MG TABCR PO SCH ×2 (08:52→08:58)
[2020-11-15] MEDS: DOCUSATE SODIUM/SENNA 50/8.6MG TAB PO SCH ×2 (08:52→08:58)
[2020-11-15] MEDS: FOLIC ACID 1 MG TAB PO SCH ×2 (08:52→08:58)
[2020-11-15] MEDS: MAGNESIUM CHLORIDE 64MG DELAYED REL TAB PO SCH ×2 (08:52→08:58)
[2020-11-15] MEDS: POTASSIUM CHLORIDE 20 MEQ/15 ML UDC PO SCH ×2 (08:53→08:59)
[2020-11-15] MEDS: predniSONE 20 MG TAB PO SCH (08:58)
--- NOTE | 2020-11-15 10:28 | Hospitalist Progress Note ---
Date of Service November 15, 2020 Assessment & Plan (1) Acute pancreatitis: Metastatic Pancreatic mass /cancer Present on admission with worsening abdominal pain CT ABD:Patent biliary enteric stent with secondary pneumobilia. Persistent mild dilatation of pancreatic duct with a distal pancreatic duct cut off sign. Persistent mesenteric susanna hepatis and retroperitoneal lymphadenopathy. Persistent right posterior bladder nodule. Ill-defined areas of decreased right renal attenuation suspicious for pyelonephritis. Clinical follow-up recommended. Stable adrenal masses. Patchy groundglass nodular opacities within the right lower lobe, likely infectious/inflammatory Continues to have severe pain from metastatic pancreatic mass that required IV Dilaudid Tolerated diet Continue pain control - WEB SITE ADMINISTRATOR pump Suspected pyelonephritis Incidental finding on CT scan Urine culture No growth Received Rocephin for 3 days, then abx was discontinued Dyspnea CXR showed Redemonstration of the right upper lobe mass. Apparent adjacent opacity within the right lung. This is probably due to overlying soft tissue/implant however adjacent airspace opacity cannot be excluded. Duoneb prn Saturating well on room air Metastatic lung cancer H/O NSCLC Extensive lymphadenopathy to neck, chest, abdomen, brain metastases and bilateral adrenal gland metastatic disease S/P stereotactic radiosurgery/brain tumor resection On chemotherapy On chronic Steroid therapy: Discussed with (on prednisone taper secondary to possible acute hepatitis previously. Advised to taper down prednisone in 2 week period) Palliative care consulted for goal of care Poor prognosis as per oncology Appreciate radiation oncology input Patient had a virtual meeting with oncology Dr. Eran Barillas explained to the patient about her cancer progress and the prognosis is poor Oncology said there is no curable treatment for cancer and no plan for further chemotherapy At this point recommend palliative management or transition to hospice Patient is not ready to transition to comfort care, she wants to continue to fight She would like to get a second opinion from oncology, sister will call [facility] to schedule for second opinion Phone number provided to the patient to call [facility] to schedule for the second opinion prior hospitalist helped patient to sign consent for medical record release to send to [facility] Case discussed with palliative care - plan to DC home w/ hospice on WEB SITE ADMINISTRATOR pump 1mg Dilaudid baseline, bolus dose increased to 0.5, 30-minute lock Referral was also placed for hospice while patient is waiting for second opinion Patient seen by [facility] home hospice nurse yesterday 11/14/20- home hospice arranged Orthostatic hypotension On fludrocortisone, midodrine Anemia of chronic disease Hb stable Monitor H/O Seizure Continue Keppra DVT Px: SCDs Re: Brain Mets Code Status Full Code Disposition : Very poor prognosis Plan to discharge home with home hospice Admission and Anticipated Discharge Date Admission Date: October 30, 2020 Subjective Patient was seen and examined for follow-up of abdominal pain Lying in bed with no distress This morning reported more pain, and therefore bolus dose for her WEB SITE ADMINISTRATOR pump was increased by palliative medicine Currently says that she feels comfortable on WEB SITE ADMINISTRATOR pump Patient seen by hospice nurse yesterday, plan to DC home w/ hospice today Per previous hospitalist, patient said they were able to get in touch with [facility] for second opinion helped her to complete the consent for medical record release to fax her medical document to [facility] she will also complete a consent to get a medical record release from [facility] She was also advised to get a referral from her PCP to fax to [facility] Review of Systems Review of Systems: All systems reviewed & are unremarkable except as noted in HPI & below Physical Exam Physical Exam: General- No acute distress Head- atraumatic Eyes- PERRL, EOMI, ENT- oropharynx clear Neck- supple, no JVD Lungs- normal effort, no labored breathing, coarse BS Heart- regular rhythm; no murmur Abdomen- normal bowel sounds, soft, +tender Extremities- no calf tenderness Neuro- alert, oriented x 3; PERRL, EOMI; no facial palsy; no dysarthria Skin- warm & dry Results & Data Results & Data ([facility]) Vital Signs (Past 12 Hours) Vital Signs Temp Pulse Resp BP Pulse Ox 11/15/20 07:38 36.7 C 118 H 20 113/79 98 11/15/20 03:48 36.7 C 91 H 100/62 97 11/14/20 23:21 36.6 C 89 16 104/68 97 Medications Administered Current Inpatient Medications Acetaminophen (Acetaminophen 325 Mg Tab) 325 mg PO Q6H PRN PRN Reason: fever or pain Stop: 11/29/20 21:51 Albuterol (Albut/Ipratrop 3mg/0.5mg Neb 3 Ml Vial) 3 ml NEB QIDR PRN PRN Reason: sob Stop: 12/10/20 10:59 Last Admin: 11/13/20 15:05 Dose: 3 ml Documented by: Docusate Sodium (Docusate Sodium 100 Mg Cap) 100 mg PO BID PRN PRN Reason: Constipation Stop: 11/29/20 21:51 Last Admin: 11/14/20 08:24 Dose: 100 mg Documented by: Fludrocortisone Acetate (Fludrocortisone Acetate 0.1 Mg Tab) 0.1 mg PO QAM [facility] Stop: 11/30/20 08:59 Last Admin: 11/15/20 08:50 Dose: 0.1 mg Documented by: Folic Acid (Folic Acid 1 Mg Tab) 1 mg PO QAM [facility] Stop: 11/30/20 08:59 Last Admin: 11/15/20 08:58 Dose: 1 mg Documented by: Guaifenesin (Guaifenesin 600 Mg Tabcr) 1,200 mg PO Q12 [facility] Stop: 12/04/20 08:59 Last Admin: 11/15/20 08:58 Dose: 1,200 mg Documented by: Guaifenesin/Codeine Phosphate (Guaifenesin/Codeine 100mg/10mg 5ml Udc) 5 ml PO Q6H PRN PRN Reason: Cough Stop: 12/04/20 07:41 Last Admin: 11/06/20 02:48 Dose: 5 ml Documented by: Heparin Sodium (Porcine) (Heparin 100 Unit/Ml 5ml Flush) 5 ml FLUSH PRN PRN PRN Reason: Flush Stop: 11/30/20 01:35 Last Admin: 11/13/20 12:40 Dose: 5 ml Documented by: Hydromorphone HCl (Hydromorphone Leather Stripping Machine Operator 30 Mg/30 Ml) 30 mg IV PRN PRN; Protocol PRN Reason: WEB SITE ADMINISTRATOR Pain Titration Stop: 11/27/20 13:14 Last Admin: 11/15/20 08:48 Dose: 30 mg Documented by: Promethazine HCl 12.5 mg/ (Sodium Chloride) 50.5 mls @ 202 mls/hr IV Q6H PRN PRN Reason: Nausea And Vomiting Stop: 11/29/20 21:51 Sodium Chloride (Nss 1000ml) 1,000 mls @ 15 mls/hr IV .Q24H [facility] Stop: 11/27/20 13:14 Last Admin: 11/14/20 19:58 Dose: 30 mls/hr Documented by: Levetiracetam (Levetiracetam 500 Mg Tab) 1,500 mg PO BID [facility] Stop: 11/29/20 22:59 Last Admin: 11/15/20 08:50 Dose: 1,500 mg Documented by: Lorazepam (Lorazepam 1 Mg Tab) 1 mg SL Q6H PRN PRN Reason: Anxiety Stop: 12/05/20 21:14 Last Admin: 11/15/20 05:59 Dose: 1 mg Documented by: Magnesium Chloride (Magnesium Chloride 64mg Delayed Rel Tab) 64 mg PO BID [facility] Stop: 11/29/20 22:59 Last Admin: 11/15/20 08:58 Dose: 64 mg Documented by: Metoclopramide HCl (Metoclopramide Hcl 5 Mg Tablet) 5 mg PO AC [facility] Stop: 11/30/20 07:29 Last Admin: 11/15/20 07:54 Dose: Not Given Documented by: Midodrine (Midodrine Hcl 10 Mg Tab) 10 mg PO TID@0800,1200,1700 [facility] Stop: 11/30/20 07:59 Last Admin: 11/15/20 08:51 Dose: 10 mg Documented by: Miscellaneous (Lock-Out Leather Stripping Machine Operator Titration ) 1 ea N/A ONCE PRN PRN Reason: WEB SITE ADMINISTRATOR Lock-Out Titration x 1 Stop: 11/27/20 12:57 Morphine Sulfate (Morphine Sulfate Cr 15 Mg Tabcr) 30 mg PO Q12H [facility] Stop: 11/24/20 08:59 Last Admin: 11/15/20 08:50 Dose: 30 mg Documented by: Naloxone HCl (Naloxone Hcl Inj 1 Mg/Ml 2ml Syr) 4 mg INTNAS Q3M PRN PRN Reason: opioid overdose Stop: 11/29/20 23:54 Naloxone HCl (Naloxone Hcl 0.4 Mg/1 Ml Vial/Carp) 0.1 mg IV Q5M PRN; Protocol PRN Reason: Oversedation/Resp Depression Stop: 11/19/20 09:30 Naloxone HCl (Naloxone Hcl 0.4 Mg/1 Ml Vial/Carp) 0.1 mg IV Q5M PRN; Protocol PRN Reason: Oversedation/Resp Depression Stop: 11/27/20 12:57 Polyethylene Glycol (Polyethylene (Miralax) 17 Gm Pack) 17 gm PO QID PRN PRN Reason: Constipation Stop: 11/29/20 21:51 Polyethylene Glycol (Polyethylene (Miralax) 17 Gm Pack) 17 gm PO DAILY [facility] Stop: 11/30/20 11:59 Last Admin: 11/15/20 08:59 Dose: 17 gm Documented by: Potassium Chloride (Potassium Chloride 20 Meq/15 Ml Udc) 20 meq PO DAILY [facility] Stop: 11/30/20 08:59 Last Admin: 11/15/20 08:59 Dose: 20 meq Documented by: Prednisone (Prednisone 20 Mg Tab) 20 mg PO DAILY [facility] Stop: 12/14/20 08:59 Last Admin: 11/15/20 08:58 Dose: 20 mg Documented by: Senna/Docusate Sodium (Docusate Sodium/Senna 50/8.6mg Tab) 1 tab PO BID [facility] Stop: 12/06/20 08:59 Last Admin: 11/15/20 08:58 Dose: 1 tab Documented by: (1) Acute pancreatitis Acute pancreatitis complication: unspecified Pancreatitis type: unspecified pancreatitis type Qualified Code(s): K85.90 - Acute pancreatitis without necrosis or infection, unspecified
--- NOTE | 2020-11-15 11:15 | Palliative Care Progress Note ---
Date of Service November 15, 2020 Assessment & Plan (1) Epigastric abdominal pain: Will increase bolus dose on cutter grind tool technician to 0.5mg every 30minutes as needed. I talked with Josi about using bolus doses when her pain is increased. We also reviewed using ativan when she is feeling anxious and upset which also increases her pain level. Reviewed with RN to give bolus dose prior to discharge for her trip home. (2) Anxiety: (3) Palliative care encounter: Anticipate discharge home with hospice later today. Josi tells me that she is comfortable with this plan. I talked with Esteban on the phone and answered his questions about hospice. Josi still mentions possibly contacting [facility] about a second opinion. I did discuss with Esteban that if they decide to do this, it would mean that she would not be able to continue hospice care and her infusion and that it would be important to clearly define the risks and benefits of any other potential treatments to be clear about what will be the best course of action for them moving forward. Discussed with RN and hospice case manager. (4) Pancreatic mass: (5) Adenocarcinoma of lung: Admission and Anticipated Discharge Date Admission Date: October 30, 2020 Subjective Josi had been complaining of increased pain this morning in her abdomen. She had 8 attempts with four doses delivered on MEDICAL RECORDS RECEPTIONIST. She tells me that when she pushes the button, nothing happens. Review of Systems Review of Systems: [place] Symptom Assessment Scale Pain 1/3 Dyspnea 0/3 Anxiety 1/3 Nausea 0/3 Fatigue 2/3 Drowsiness 1/3 Palliative Performance Score 50% Physical Exam Constitutional: + lethargic Respiratory: normal respiratory effort; no labored breathing Gastrointestinal (Abdomen): Inspection/Auscultation: abdomen not distended Musculoskeletal: Extremities: extremities normal to inspection Neurologic: not confused Psychiatric: Orientation: oriented x 3 Results & Data ([facility]) Vital Signs (Past 12 Hours) Vital Signs Temp Pulse Resp BP Pulse Ox 11/15/20 07:38 98.1 F 118 H 20 113/79 98 11/15/20 03:48 98.1 F 91 H 100/62 97 11/14/20 23:21 97.9 F 89 16 104/68 97 PG Care Time/CCT Total # of Minutes Spent Total Time Spent with Patient: Total time spent is greater than 50% in coordination of care (as documented) at patient's floor/unit and/or counseling patient: Total time spent 40 minutes with more than 50% of time spent on goals of care, symptom management, hospice, family education and support, coordination of care. Coding Level of Care Code 78083 Subseq Hosp Care Lvl 3 Diagnoses Epigastric abdominal pain R10.13 Anxiety F41.9 Palliative care encounter Z51.5 Pancreatic mass K86.89 Adenocarcinoma of lung C34.90 Laterality: unspecified laterality (1) Adenocarcinoma of lung Laterality: unspecified laterality Qualified Code(s): C34.90 - Malignant neoplasm of unspecified part of unspecified bronchus or lung
--- NOTE | 2020-11-15 12:03 | Discharge Summary ---
Date of Service November 15, 2020 Admission HPI Per Admitting Provider History obtained from patient and records. Medical history significant for NSCLC with brain mets status post stereotactic radiosurgery, brain tumor resection (05/2020) on steroid Rx on chemotherapy, history seizures, history TIA, breast cancer status post mastectomy, history BRCA gene mutation positivity, chronic anemia (baseline hemoglobin of 10-11), orthostatic hypotension on fludrocortisone and midodrine, past tobacco abuse. Multiple hospital admissions since May 2020. Recent confinement last week for recurrent pancreatitis. Patient seen by Pain management and Palliative care during confinement. Patient not ready for hospice as per documentation. Patient discharged on Ceftin for possible bronchitis symptoms. Prednisone course initiated by oncologist for possible chemotherapy hepatitis tapered off. Patient seen at PCPs office yesterday on follow-up. Patient got upset when PCP mentioned pancreatic spread of lung cancer. Patient told PCP that 2 people in the hospital told her she did not have pancr eatic cancer during her last hospital stay. At home, patient noted worsening epigastric discomfort without nausea, emesis, fever, chills. Good BM. Patient staying away from greasy food. No recent EtOH intake. Intractable pain at the ER. 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 Admission Exam Per Admitting Provider GENERAL: uncomfortable, tearful, no respiratory distress SKIN: Normal color, warm HEENT: Bespectacled, pale palpebral conjunctivae, no ptosis, dry buccal mucosa NECK : Supple, no tenderness CHEST : CTA, no tenderness HEART : Tachycardic, no obvious murmurs ABDOMEN: Some distention, epigastric tenderness EXTREMITIES : No LE swelling/tenderness, no other conspicuous deformities noted NEUROLOGIC : Coherent, no facial asymmetry, no other gross focality Principal Diagnosis You are being discharged home with home hospice services, on MOBILE HOME INSTALLER pump/pain medication pump. Home hospice will be further managing your pain medications and other symptoms. Recommend to finish prednisone taper, prescription was sent to your pharmacy. You can use Mucinex to help with cough, prescription was sent to your pharmacy as well. Discharge Exam General- No acute distress Head- atraumatic Eyes- PERRL, EOMI, ENT- oropharynx clear Neck- supple, no JVD Lungs- normal effort, no labored breathing, coarse BS Heart- regular rhythm; no murmur Abdomen- normal bowel sounds, soft, +tender Extremities- no calf tenderness Neuro- alert, oriented x 3; PERRL, EOMI; no facial palsy; no dysarthria Skin- warm & dry Discharge Data Allergies Allergy/AdvReac Type Severity Reaction Status Date / Time Penicillins Allergy Intermediate Swelling Verified 10/30/20 16:55 Consultations 10/30/20 19:09 ED Decision to Admit Stat 10/31/20 00:04 Consult Gastroenterology Routine 10/31/20 09:54 Consult Palliative Care Routine 11/02/20 11:41 Consult Radiation Oncology Routine Ordered Studies 10/31/20 10:25 CT abd pelvis oral and IV con Routine IMPRESSION: 1. Patent biliary enteric stent with secondary pneumobilia 2. Persistent mild dilatation of pancreatic duct with a distal pancreatic duct cut off sign 3. Persistent mesenteric susanna hepatis and retroperitoneal lymphadenopathy 4. Persistent right posterior bladder nodule. 5. Ill-defined areas of decreased right renal attenuation suspicious for pyelonephritis. Clinical follow-up recommended 6. Stable adrenal masses 7. Patchy groundglass nodular opacities within the right lower lobe, likely infectious/inflammatory 11/02/20 15:37 MR brain wo/w con Routine IMPRESSION: 1. No acute intracranial findings. 2. Interval decrease in size of the enhancing lesions shown on MRI of August 06, 2020, as described above, consistent with a treatment response. No new lesions identified. No evidence for progressive metastatic disease. Hospital Course (1) Acute pancreatitis: Metastatic Pancreatic mass /cancer Present on admission with worsening abdominal pain CT ABD:Patent biliary enteric stent with secondary pneumobilia. Persistent mild dilatation of pancreatic duct with a distal pancreatic duct cut off sign. Persistent mesenteric susanna hepatis and retroperitoneal lymphadenopathy. Persistent right posterior bladder nodule. Ill-defined areas of decreased right renal attenuation suspicious for pyelonephritis. Clinical follow-up recommended. Stable adrenal masses. Patchy groundglass nodular opacities within the right lower lobe, likely infectious/inflammatory Continues to have severe pain from metastatic pancreatic mass that required IV Dilaudid Tolerated diet Continue pain control - MOBILE HOME INSTALLER pump Suspected pyelonephritis Incidental finding on CT scan Urine culture No growth Received Rocephin for 3 days, then abx was discontinued Dyspnea CXR showed Redemonstration of the right upper lobe mass. Apparent adjacent opacity within the right lung. This is probably due to overlying soft tissue/implant however adjacent airspace opacity cannot be excluded. Duoneb prn Saturating well on room air Metastatic lung cancer H/O NSCLC Extensive lymphadenopathy to neck, chest, abdomen, brain metastases and bilateral adrenal gland metastatic disease S/P stereotactic radiosurgery/brain tumor resection On chemotherapy On chronic Steroid therapy: Discussed with (on prednisone taper s econdary to possible acute hepatitis previously. Advised to taper down prednisone in 2 week period) Palliative care consulted for goal of care Poor prognosis as per oncology Appreciate radiation oncology input Patient had a virtual meeting with oncology Dr. Eran Barillas explained to the patient about her cancer progress and the prognosis is poor Oncology said there is no curable treatment for cancer and no plan for further chemotherapy At this point recommend palliative management or transition to hospice Patient is not ready to transition to comfort care, she wants to continue to fight She would like to get a second opinion from oncology, sister will call [facility] to schedule for second opinion Phone number provided to the patient to call [facility] to schedule for the second opinion prior hospitalist helped patient to sign consent for medical record release to send to [facility] Case discussed with palliative care - plan to DC home w/ hospice on MOBILE HOME INSTALLER pump 1mg Dilaudid baseline, bolus dose increased to 0.5, 30-minute lock Referral was also placed for hospice while patient is waiting for second opinion Patient seen by [facility] home hospice nurse yesterday 11/14/20- home hospice arranged Orthostatic hypotension On fludrocortisone, midodrine Anemia of chronic disease Hb stable Monitor H/O Seizure Continue Keppra Disposition : Very poor prognosis Plan to discharge home with home hospice Total Time Total Time Spent Total Time Spent (In Minutes): 40 Total Time Includes: Examination of the Patient, Discharge Planning, Medication Reconciliation and Communication With Other Providers Discharge Plan Discharge Items Patient Disposition: Hospice - Home Reason For Visit: recurrent pancreatitis, tachy; private rm requeste Discharge Diagnosis: Pain secondary to metastatic cancer, pancreatitis Condition on Discharge: Good Activity: Per Instructions section Non-emergency contact: Specialist Call non-emergency contact if: you have any medication questions and your symptoms worsen Follow-up/Referrals: Jasiel Fritz DO [Primary Care Provider] - Diet: Regular Addtl Attending Provider Instructions: You are being discharged home with home hospice services, on MOBILE HOME INSTALLER pump/pain medication pump. Home hospice will be further managing your pain medications and other symptoms. Recommend to finish prednisone taper, prescription was sent to your pharmacy. You can use Mucinex to help with cough, prescription was sent to your pharmacy as well. Pending Studies at Discharge: No Stand-Alone Forms: My [facility] Medications and DC Order Prescriptions: New prednisone 20 mg Tablet 20 mg PO DAILY Qty: 5 RF: 0 guaifenesin [Mucinex] 600 mg Tablet Extended Release 12hr 1,200 mg PO Q12 Qty: 10 RF: 0 Continued naloxone 4 mg/actuation spray,non-aerosol 1 spray intranasal Q3M PRN (Reason: opioid overdose) Qty: 2 RF: 0 folic acid 1 mg Tablet 1 mg PO QAM RF: 0 ondansetron 8 mg Tablet,Disintegrating 8 mg PO Q8H PRN (Reason: Nausea) RF: 0 prochlorperazine maleate 10 mg Tablet 10 mg PO Q6H PRN (Reason: Nausea) RF: 0 polyethylene glycol 3350 [Miralax] 17 gram powder in packet 17 g PO QID PRN (Reason: Constipation) RF: 0 sennosides-docusate sodium [Senokot-S] 8.6-50 mg tablet 1 tab PO BID PRN (Reason: Constipation) RF: 0 docusate sodium 100 mg capsule 100 mg PO BID PRN (Reason: Constipation) RF: 0 acetaminophen 325 mg Tablet 325 mg PO Q6H PRN (Reason: fever or pain) Qty: 90 RF: 0 midodrine 10 mg Tablet 10 mg PO TID@0700,1300,1800 Qty: 90 RF: 0 morphine 15 mg Tablet 15 mg PO Q4H PRN (Reason: pain) Qty: 90 RF: 0 fludrocortisone 0.1 mg Tablet 0.1 mg PO QAM Qty: 30 RF: 0 levetiracetam 500 mg tablet 1,500 mg PO BID RF: 0 magnesium chloride [Mag 64] 64 mg Tablet,Delayed Release (Dr/Ec) 64 mg PO BID Qty: 60 RF: 0 metoclopramide HCl 5 mg tablet 5 mg PO AC RF: 0 oxycodone 5 mg Tablet 15 mg PO Q4H PRN (Reason: pain) Qty: 1 RF: 0 morphine 15 mg Tablet Extended Release 30 mg PO Q12 Qty: 90 RF: 0 lorazepam 1 mg tablet 1 mg PO TID PRN (Reason: Anxiety) RF: 0 potassium chloride 20 mEq tablet extended release 20 meq PO DAILY Qty: 14 RF: 0 Discontinued cefuroxime axetil 250 mg Tablet 250 mg PO BID Qty: 10 RF: 0 Discharge Orders: Discharge Order (Routine); Ordered 11/15/20 Ordered By: Jose Farris Admission Data Admit Date/Time: 10/30/20 20:25 Attending Provider: Jose Farris Admit Provider: George Us Primary Care Provider: Jasiel Fritz Other Providers: George Us ; Shira Trujillo ; Stormy Choe ; Bradly Gilbert ; Phyllis Hartmann ; Neil Funes ; Josee Ding ; Micaela Curtis ; Branden Xie ; Gabby Thorne ; Shannon Garcia ; Karla Rodriguez ; Bianca Singh ; Israel Gurrola ; Shelly Walters ; Jane Miller ; Dario Aguayo ; Naheed Shah ; [facility] ; Larry Gastelum
[2020-11-15] MEDS: HEPARIN 100 UNIT/ML 5ML FLUSH FLUSH PRN (15:13)
== END 2020-11-15 15:44 | disposition hospice, home (50) | DRG 374 ==
LOC: ED 15:40 → 2N 20:12 → SUATTDRO 20:25 → 3E 10-31 21:36
DX: Z80.3 Family history of malignant neoplasm of breast; C79.31 Secondary malignant neoplasm of brain; Z88.0 Allergy status to penicillin; Z92.3 Personal history of irradiation; E87.6 Hypokalemia; Z86.73 Personal history of transient ischemic attack (TIA), and cerebral infarction without residual deficits; C79.71 Secondary malignant neoplasm of right adrenal gland; C34.90 Malignant neoplasm of unspecified part of unspecified bronchus or lung; G40.909 Epilepsy, unspecified, not intractable, without status epilepticus; Z14.8 Genetic carrier of other disease; Z51.5 Encounter for palliative care; Z83.3 Family history of diabetes mellitus; K85.80 Other acute pancreatitis without necrosis or infection; Z87.891 Personal history of nicotine dependence; C79.72 Secondary malignant neoplasm of left adrenal gland; K83.1 Obstruction of bile duct; Z85.3 Personal history of malignant neoplasm of breast; Z17.0 Estrogen receptor positive status [ER+]; K86.1 Other chronic pancreatitis; C79.89 Secondary malignant neoplasm of other specified sites; I95.1 Orthostatic hypotension; C78.89 Secondary malignant neoplasm of other digestive organs; N12 Tubulo-interstitial nephritis, not specified as acute or chronic; K86.89 Other specified diseases of pancreas; F41.9 Anxiety disorder, unspecified; Z79.52 Long term (current) use of systemic steroids; Z90.13 Acquired absence of bilateral breasts and nipples; D63.8 Anemia in other chronic diseases classified elsewhere

== ENCOUNTER 2020-11-28 09:49 | Inpatient (IN) ==
[2020-11-28] MEDS ORDERED: HYDROmorphone INJ 1 MG/ML SYRINGE IV STA ×3 (10:35→16:15)
[2020-11-28] MEDS ORDERED: ONDANSETRON INJ 2 MG/ML 2 ML VIAL IV STA (10:35)
--- NOTE | 2020-11-28 10:44 | Emergency Department Note ---
Impression & Plan Lung cancer, Hemoptysis ED Provider Note NAME: YNES MCCARTY AGE: 45 SEX: F : 1975 ARRIVES VIA: Walk-In INFORMANT: Patient, ED PROVIDER(S): Donn Bello MD Chief Complaint: Abdominal pain, hemoptysis, cancer pain HPI: Patient does present for the above symptoms. The patient does state that she has a history of a biliary stent and has been having some worsening abdominal pain. The patient is also noticed some blood-tinged hemoptysis which has been ongoing for approximately 2 days. No history of PE prior. The patient does have a Dilaudid WHARF HAND for which she is receiving 1 mg continuously per hour a nd has 0.5 mg as needed every 30 minutes. Patient states that this has not been sufficient. The patient has been talking with her hospice care about further measures. The patient does have chronic shortness of breath. The patient is a former smoker. Patient has had nausea but no vomiting. The patient does have metastatic lung cancer with brain metastases. Patient's biliary stent was placed approximate 1 month prior. Patient states she is not had a recent bowel movement but is urinating without issue. Patient is not vaccinated for Covid. ROS: See HPI for pertinent positives and negatives. A total of 10 systems were reviewed and otherwise negative. Past medical history: See below Surgical history: See below Social history: See below Physical Exam: GENERAL: Chronically ill in appearance, wearing glasses. EYE EXAM: Normal conjunctiva. PERRL, no anisocoria and EOM's grossly intact w/o pain. NECK: Supple, no nuchal rigidity, no adenopathy, non-tender. No signs of meningismus. LUNGS: Clear to auscultation. Normal chest wall mechanics. HEART: Tachycardic and regular, no MRG. ABDOMEN: Abdomen soft, non-tender, normo-active bowel sounds, no masses, no rebound or guarding. BACK: No CVA TTP. SKIN: No rashes and no bruising. UPPER EXTREMITIES: Upper extremities are grossly normal. LOWER EXTREMITIES: Grossly normal, no edema. NEURO EXAM: A&O x3, cranial nerves II-XII grossly intact, normal speech, moves all 4 extremities on command w/o issue. Differential diagnoses: Reactive airway disease, pneumonia, pneumothorax, COPD, CHF, infections, cardiac ischemia, pulmonary embolism, musculoskeletal, gastrointestinal, as well as other pathologies. Course: Patient was seen and evaluated the bedside. Full history physical exam was performed. EKG interpreted by me Imaging Studies: See below Cardiac monitoring: An order was placed for continuous cardiac monitoring. The monitor shows a rate of 115 with sinus tachycardia rhythm. MDM: Patient does present due to concern for hemoptysis and abdominal pain. The patient does have an unfortunate diagnosis of lung cancer with metastatic disease. The patient is currently on hospice but has thought about potentially obtaining second opinion. The patient does present with concern for hemoptysis been ongoing for the last 2 days. Patient did have bladder completed along with CT angio of the chest as well as CT of the abdomen pelvis. The patient has normal white count H&H and platelet count. Kidney function is unremarkable. The patient does have hypokalemia and mild hyponatremia. Troponin not checked with. Covid negative. CT does show concern for worsening metastatic disease. No obvious PE. CT abdomen pelvis does show some pneumobilia but thought likely not pancreatitis. Aorta is normal. There is some groundglass attenuation on the abdomen pelvis. However, there is no comment about infectious lung process based on the CT chest. After further discussion with the patient she is amenable to a palliative consult. I did consult Dr. Walters. The patient was to be admitted for further evaluation and treatment. I did speak with the on-call hospitalist Uma Spence PA-C. The patient was admitted by Dr. Aguayo. Past Med/Surg History Medical History Abdominal pain Adenocarcinoma of lung w/ extensive lymphadenopathy in the neck, chest, abdomen; brain and bilateral adrenal metastases Anxiety Brain metastases BRCA gene positive Hx of breast cancer Palliative care encounter Palliative care encounter Seizure disorder Due to tumor edematous burden Surgical History H/O bilateral mastectomy H/O craniotomy 05/2020-right frontal craniotomy for brain tumor resection H/O: hysterectomy History of cholecystectomy Family History Aunt Breast cancer Social History Smoking Status: Never smoker Tobacco Type: Cigarettes packs per day: 1; Years Smoked: 23; Second Hand Exposure: No; Hx Alcohol Use: No Hx Substance Use: No Preferred Language: Turkmen Communication Ability: Effective X Ray Equipment Mechanic Required: No Beliefs That Will Affect Care: None marital status: Current Living Situation: Spouse How many Children do You have: 2 Feels Safe at Home: Yes Assistive Devices: Oxygen - Continuous Allergies Allergies Allergy/AdvReac Type Severity Reaction Status Date / Time Penicillins Allergy Intermediate Swelling Verified 11/27/20 02:40 Home Meds Home Medications Medication Instructions Recorded Confirmed folic acid 1 mg PO QAM 07/09/20 11/28/20 ondansetron 8 mg PO Q8H PRN 07/09/20 11/28/20 prochlorperazine maleate 10 mg PO Q6H PRN 07/09/20 11/28/20 polyethylene glycol 3350 [Miralax] 17 g PO QID PRN 07/23/20 11/28/20 sennosides-docusate sodium 1 tab PO BID PRN 07/23/20 11/28/20 [Senokot-S] docusate sodium 100 mg PO BID PRN 07/29/20 11/28/20 levetiracetam 1,500 mg PO BID 08/16/20 11/28/20 metoclopramide HCl 5 mg PO AC 09/04/20 11/28/20 lorazepam 1 mg PO TID PRN 10/26/20 11/28/20 bisacodyl [Dulcolax (bisacodyl)] 10 mg MN DAILY PRN 11/27/20 11/28/20 hydromorphone 0 mg IV UD 11/27/20 11/28/20 hyoscyamine sulfate 0.125 mg SUBLINGUAL Q4 PRN 11/27/20 11/28/20 lactulose 30 ml PO BID PRN 11/27/20 11/28/20 omeprazole 20 mg PO DAILY 11/27/20 11/28/20 oxycodone 5 - 10 mg PO Q6 PRN 11/27/20 11/28/20 Previous Rx's Medication Instructions Recorded morphine 15 mg PO Q12H #60 tab 07/16/20 magnesium chloride [Mag 64] 64 mg PO BID #60 tab 09/02/20 fludrocortisone 0.1 mg PO QAM #30 tab 10/21/20 midodrine 10 mg PO TID@0700,1300,1800 #90 tab 10/21/20 morphine 15 mg PO Q4H PRN #90 tab 10/21/20 naloxone 4 mg/actuation nasal spray 1 spray INTRANASAL Q3M PRN #2 ea 10/23/20 morphine 30 mg PO Q12 #90 tab 10/25/20 potassium chloride 20 meq PO DAILY #14 tab 10/27/20 guaifenesin [Mucinex] 1,200 mg PO Q12 #10 tab 11/15/20 prednisone 20 mg PO DAILY #5 tab 11/15/20 Results & Data (ED) Vital Signs Vital Signs - 24 hr 11/28/20 10:00 11/28/20 11:15 11/28/20 11:30 Temperature 36.8 C Temperature Source Temporal Artery Scan Pulse Rate 123 H 103 H 100 H Pulse Rate from SpO2 Sensor 102 H 99 H Respiratory Rate 16 19 12 Blood Pressure 106/73 133/81 Blood Pressure Mean 84 98 Blood Pressure Position Sitting Pulse Oximetry 98 96 97 Oxygen Delivery Method Nasal Cannula Oxygen Flow Rate 2 Sepsis Recent Fever Within 48 Hours No Sepsis New/Unexplained Change in Mental Status N/A Sepsis Action Taken by Nursing No Action Required 11/28/20 12:00 11/28/20 12:59 Temperature Temperature Source Pulse Rate 112 H Pulse Rate from SpO2 Sensor 110 H Respiratory Rate 23 Blood Pressure 125/85 Blood Pressure Mean 98 Blood Pressure Position Pulse Oximetry 99 94 Oxygen Delivery Method Nasal Cannula Nasal Cannula Oxygen Flow Rate 2 2 Sepsis Recent Fever Within 48 Hours Sepsis New/Unexplained Change in Mental Status Sepsis Action Taken by Prison Medications Current Medication List: was personally reviewed by me Laboratory Data Attestation: I reviewed the patient's lab results. Result diagrams: 11/28/20 11:06 11/28/20 11:06 Lab Results 11/28/20 11/28/20 11/28/20 Range/Units 11:06 11:06 15:09 WBC 9.07 (4.8-10.8) K/uL RBC 4.37 (4.2-5.4) M/uL Hgb 13.5 (12.0-16.0) g/dL Hct 39.3 (37-47) % MCV 89.9 (80-100) fL MCH 30.9 (25-34) pg MCHC 34.4 (32-36) g/dL RDW Std Deviation 41.9 (36.4-46.3) fL RDW Coeff of Suri 12.8 (11.5-14.5) % Plt Count 137 (130-400) K/uL MPV 10.2 (7.4-10.4) fL Immature Gran % (Auto) 1.5 % Neut % (Auto) 72.9 % Lymph % (Auto) 14.6 % [place] % (Auto) 10.7 % Eos % (Auto) 0.2 % Baso % (Auto) 0.1 % Neut # (Auto) 6.61 H (1.4-6.5) K/uL Lymph # (Auto) 1.32 (1.2-3.4) K/uL [place] # (Auto) 0.97 H (0.11-0.59) K/uL Eos # (Auto) 0.02 (0-0.5) K/uL Baso # (Auto) 0.01 (0-0.2) K/uL Immature Gran # (Auto) 0.14 H (0.00-0.02) K/uL Sodium 134 L (136-145) mmol/L Potassium 2.6 L (3.5-5.1) mmol/L Chloride 98 (98-107) mmol/L Carbon Dioxide 24 (21-32) mmol/L Anion Gap 13.0 H (3-11) BUN 7 (7-18) mg/dl Creatinine 0.32 L (0.6-1.2) mg/dl Est Cr Clr Drug Dosing 218.2 ml/min Est GFR ( Amer) > 150.0 ml/min Est GFR (Non-Af Amer) 136.3 ml/min BUN/Creatinine Ratio 20.7 H (10-20) Glucose 82 (70-99) mg/dl Calcium 10.0 (8.5-10.1) mg/dl Total Bilirubin 1.0 (0.2-1) mg/dl AST 35 (15-37) U/L ALT 21 (12-78) U/L Alkaline Phosphatase 114 (45-117) U/L Troponin I < 0.015 (0-0.045) ng/ml Total Protein 7.1 (6.4-8.2) gm/dl Albumin 3.3 L (3.4-5.0) gm/dl Globulin 3.8 (2.5-4.0) gm/dl Albumin/Globulin Ratio 0.9 (0.9-2) TSH 1.630 (0.300-4.500) uIu/ml COVID-19 Eval Order Covid19 at [facility] SARS-CoV-2 (PCR) (Negative) 11/28/20 Range/Units 15:09 WBC (4.8-10.8) K/uL RBC (4.2-5.4) M/uL Hgb (12.0-16.0) g/dL Hct (37-47) % MCV (80-100) fL MCH (25-34) pg MCHC (32-36) g/dL RDW Std Deviation (36.4-46.3) fL RDW Coeff of Suri (11.5-14.5) % Plt Count (130-400) K/uL MPV (7.4-10.4) fL Immature Gran % (Auto) % Neut % (Auto) % Lymph % (Auto) % [place] % (Auto) % Eos % (Auto) % Baso % (Auto) % Neut # (Auto) (1.4-6.5) K/uL Lymph # (Auto) (1.2-3.4) K/uL [place] # (Auto) (0.11-0.59) K/uL Eos # (Auto) (0-0.5) K/uL Baso # (Auto) (0-0.2) K/uL Immature Gran # (Auto) (0.00-0.02) K/uL Sodium (136-145) mmol/L Potassium (3.5-5.1) mmol/L Chloride (98-107) mmol/L Carbon Dioxide (21-32) mmol/L Anion Gap (3-11) BUN (7-18) mg/dl Creatinine (0.6-1.2) mg/dl Est Cr Clr Drug Dosing ml/min Est GFR ( Amer) ml/min Est GFR (Non-Af Amer) ml/min BUN/Creatinine Ratio (10-20) Glucose (70-99) mg/dl Calcium (8.5-10.1) mg/dl Total Bilirubin (0.2-1) mg/dl AST (15-37) U/L ALT (12-78) U/L Alkaline Phosphatase (45-117) U/L Troponin I (0-0.045) ng/ml Total Protein (6.4-8.2) gm/dl Albumin (3.4-5.0) gm/dl Globulin (2.5-4.0) gm/dl Albumin/Globulin Ratio (0.9-2) TSH (0.300-4.500) uIu/ml COVID-19 Eval Order SARS-CoV-2 (PCR) NEGATIVE (Negative) Administered Medications Discontinued Medications Heparin Sodium (Porcine) (Heparin 100 Unit/Ml 5ml Flush) Confirm Administered Dose 5 ml .ROUTE .STK-MED ONE Stop: 11/28/20 12:17 Last Admin: 11/28/20 12:18 Dose: 5 ml Documented by: [id number] Hydromorphone HCl (Hydromorphone Inj 1 Mg/Ml Syringe) 1 mg IV NOW STA Stop: 11/28/20 10:36 Last Admin: 11/28/20 12:19 Dose: 1 mg Documented by: [id number] Hydromorphone HCl (Hydromorphone Inj 1 Mg/Ml Syringe) 1 mg IV NOW STA Stop: 11/28/20 14:06 Last Admin: 11/28/20 14:22 Dose: 1 mg Documented by: [id number] Hydromorphone HCl (Hydromorphone Inj 1 Mg/Ml Syringe) 1 mg IV NOW STA Stop: 11/28/20 16:16 Last Admin: 11/28/20 16:17 Dose: 1 mg Documented by: [id number] Sodium Chloride (Nss 1000ml) 1,000 mls @ 999 mls/hr IV .Q1H1M KAMILA Stop: 11/28/20 11:45 Last Infusion: 11/28/20 12:40 Dose: 0 mls/hr Documented by: [id number] Admin: 11/28/20 11:11 Dose: 999 mls/hr Documented by: [id number] Ioversol (Optiray 320 125ml) 119 ml IV ONCE ONE Stop: 11/28/20 12:41 Last Admin: 11/28/20 12:41 Dose: 119 ml Documented by: [id number] Ondansetron HCl (Ondansetron Inj 2 Mg/Ml 2 Ml Vial) 4 mg IV NOW STA Stop: 11/28/20 10:36 Last Admin: 11/28/20 11:59 Dose: 4 mg Documented by: [id number] Imaging Data Radiologist's Impression: Abdomen/Pelvis CTA 11/28/20 11:21 CT angio abdomen pelvis w con CT DOSE: CLINICAL HISTORY: ab pain; h/o biliary stent TECHNIQUE: A dose lowering technique was utilized adhering to the principles of ALARA. COMPARISON STUDY: October 31, 2020 FINDINGS: Abdominal aorta is normal in caliber without evidence of stenosis, abnormal dilatation or dissection. Celiac, superior mesenteric, bilateral renal and inferior mesenteric arteries are patent. Limited evaluation of lung bases again shows 11 mm pulmonary nodule within the right lower lobe (7/485) and stable mild lingular atelectasis. Interval development of innumerable patchy solid nodules with surrounding groundglass attenuation which were not seen on October 31, 2020 exam likely representing infectious/inflammatory etiology (example is seen on series 7 image 479). Trace pericardial effusion is seen. Evaluation of the liver shows mild interval prominence of central pneumobilia mostly within left lobe of the liver. Common bile duct stent with air-fluid level is again seen. Redemonstration of fullness of the pancreatic head and dilatation of the distal pancreatic duct with cutoff sign. Spleen is unremarkable. Redemonstration of bilateral adrenal nodules which is not significantly changed since prior, largest is seen on the left measuring 3.4 x 2.4 cm in size. No hydronephrosis or nephrolithiasis seen. Previously seen areas of decreased enhancement of the right renal cortex shows no enhancement on current exam and no evidence of significant surrounding fat stranding, could represent areas of infarct or pyelonephritis. Bowel loops are nondilated. Oral contrast is seen within colonic loops. Appendix is nondilated and filled with oral contrast. Urinary bladder is adequately filled with urine. 1.4 cm slightly enhancing mass is seen within inferior urinary bladder wall. Uterus is surgically absent. Redemonstration of multiple slightly prominent retroperitoneal and mesenteric lymph nodes. No definite osseous metastatic lesions are seen. IMPRESSION: 1. Patent biliary stent with gas fluid level. Mild interval worsening of pneumobilia. Redemonstration of pancreatic head fullness and dilated distal pancreatic duct, similar to prior study. Cutoff sign of the pancreatic duct usually seen in malignancy. Differential diagnosis might include focal pancreatitis however is less likely. 2. Interval prominence of multiple pulmonary nodules with surrounding groundglass attenuation which might represent infectious/inflammatory process. Please correlate above-mentioned findings with clinical presentation of pulmonary infection disease. 3. Redemonstration of patchy area of nonenhancement within the right renal cortex which might represent infarct or pyelonephritis. No surrounding fat stranding is seen. 4. Aorta is normal in caliber without aneurysmal dilatation, stenosis or dissection. Celiac, superior mesenteric and renal arteries are patent. 5. Small slightly enhancing mass within the urinary bladder. 6. Retroperitoneal and mesenteric lymphadenopathy. ACT 112: Positive. There are findings on this exam that require communication between the performing entity and the patient following Patient Test Result Information Act ([place] Act 112) guidelines. The above report was generated using voice recognition software. It may contain grammatical, syntax or spelling errors. Electronically signed by: Neha Gonzalez DO 11/28/2020 1:25 PM Chest CTA 11/28/20 11:21 CT ANGIOGRAM OF THE CHEST CLINICAL HISTORY: Cough and dyspnea. COMPARISON STUDY: Chest x-ray dated 11/27/[address] dated 07/29/2020. Abdominal CT dated 10/31/2020. TECHNIQUE: Following the IV administration of 119 cc of Optiray 320, CT angiogram of the chest was performed from the upper abdomen to the thoracic inlet utilizing the pulmonary embolus protocol. Images are reviewed in the axial, sagittal, and coronal planes. 3-D MIPS images are created and assessed. IV contrast was administered without complication. A dose lowering technique was utilized adhering to the principles of ALARA. CT DOSE: 619.16 mGy.cm FINDINGS: Thyroid: Imaged portions of the thyroid gland are normal in size and attenuation. Thoracic aorta: The thoracic aorta is normal in caliber and demonstrates standard 3-vessel arch anatomy. No dissection is seen. Pulmonary vasculature: The pulmonary trunk is normal in caliber. There are no filling defects identified in main, lobar, or segmental pulmonary branches to kaye ggest pulmonary embolus. Heart: A left subclavian central venous infusion port is in place. The heart is normal in size and without pericardial effusion. Lungs and pleural spaces: Moderate to advanced emphysematous change is identified. A spiculated right upper lobe mass which crosses the major fissure is seen on image #190 and measures approximately 5 x 6 x 5 cm. This shows central necrosis and extends to the hilum. Intralobular septal thickening and nodularity in the right upper, middle, and lower lobes may represent lymphangitic spread of tumor. A hilar component of this lesion an/or hilar adenopathy on #182 measures 3.7 x 2.7 cm. This encases and narrows the Central pulmonary arteries and bronchi. There is segmental atelectasis in the right middle lobe. Additional pulmonary nodules are scattered throughout the left lung. A 5 mm right lower lobe pulmonary nodule is seen measuring 154. There are numerous metastatic nodules throughout the left lung. The largest is in the left lower lobe on image #132 measuring 0.9 cm. No pleural effusion is seen. There is significant narrowing of the lizeth comment the right mainstem bronchus, and the right bronchus intermedius. The left-sided airways are clear. Lower neck: There are mildly enlarged right supraclavicular lymph nodes. These measure up to 9 mm short axis. Mediastinum: Centrally necrotic alexa aggregate in the precarinal space on image #204 measures 5.8 x 5.2 cm. Additional enlarged prevascular nodes measure up to 1.0 cm in short axis. A subcarinal alexa lesion measures 3.8 x 2.7 cm. [place]: Enlarged left hilar nodes measure up to 1.6 cm short axis. The right hilum is obscured by the dominant mass lesion.. Axillae: Enlarged left axillary node measures 1.7 x 1.6 cm as seen on image #227. No right axillary adenopathy is identified. Upper abdomen: The liver appears steatotic. The gallbladder surgically absent. The common bile duct stent is partially visualized. Pneumobilia suggests patency of the stent. Bilateral adrenal metastases are again noted. Skeletal structures: The skeletal structures are osteopenic. No lytic or blastic bony lesions are seen. Postoperative change is partially visualized in the left proximal humerus. Soft tissues: Bilateral breast implants are in place. IMPRESSION: 1. There is no evidence of pulmonary embolus in the main, lobar, or segmental pulmonary arteries. 2. Emphysema. 3. A large spiculated mass in the right upper lobe is similar in size to the 07/29/2020 examination. 4. There is an increasing right hilar component of this lesion/adenopathy, with numerous bilateral pulmonary metastases. Lymphangitic spread of tumor is suggested throughout the right lung and this has progressed as compared to 07/29/2020. 5. There is extensive mediastinal lymphadenopathy, as well as left hilar and right supraclavicular lymphadenopathy. This also appears overall modestly progressed. 6. Adrenal metastases are again noted. 7. Left axillary adenopathy persists but appears decreased from 07/29/2020. ACT 112: Negative or not required by law. Electronically signed by: Georges Aguirre M.D. 11/28/2020 1:17 PM Discharge Plan Visit Data Chief Complaint: GI Assessment Stated Complaint: abd pain coughing up blood ED Provider: Donn Bello Discharge Problem: Lung cancer, Hemoptysis Forms Stand Alone Forms: [facility] [employer] Prescriptions Prescriptions: No Action naloxone 4 mg/actuation spray,non-aerosol 1 spray intranasal Q3M PRN (Reason: opioid overdose) Qty: 2 RF: 0 folic acid 1 mg Tablet 1 mg PO QAM RF: 0 ondansetron 8 mg Tablet,Disintegrating 8 mg PO Q8H PRN (Reason: Nausea) RF: 0 prochlorperazine maleate 10 mg Tablet 10 mg PO Q6H PRN (Reason: Nausea) RF: 0 polyethylene glycol 3350 [Miralax] 17 gram powder in packet 17 g PO QID PRN (Reason: Constipation) RF: 0 sennosides-docusate sodium [Senokot-S] 8.6-50 mg tablet 1 tab PO BID PRN (Reason: Constipation) RF: 0 docusate sodium 100 mg capsule 100 mg PO BID PRN (Reason: Constipation) RF: 0 midodrine 10 mg Tablet 10 mg PO TID@0700,1300,1800 Qty: 90 RF: 0 morphine 15 mg Tablet 15 mg PO Q4H PRN (Reason: pain) Qty: 90 RF: 0 fludrocortisone 0.1 mg Tablet 0.1 mg PO QAM Qty: 30 RF: 0 prednisone 20 mg Tablet 20 mg PO DAILY Qty: 5 RF: 0 guaifenesin [Mucinex] 600 mg Tablet Extended Release 12hr 1,200 mg PO Q12 Qty: 10 RF: 0 omeprazole 20 mg Capsule,Delayed Release(Dr/Ec) 20 mg PO DAILY RF: 0 oxycodone 5 mg tablet 5 - 10 mg PO Q6 PRN (Reason: pain) RF: 0 bisacodyl [Dulcolax (bisacodyl)] 10 mg suppository 10 mg MN DAILY PRN (Reason: Constipation) RF: 0 hyoscyamine sulfate 0.125 mg tablet 0.125 mg sublingual Q4 PRN (Reason: Secretions) RF: 0 lactulose 10 gram/15 mL solution 30 ml PO BID PRN (Reason: ..) RF: 0 hydromorphone 1 mg/mL solution 0 mg IV UD RF: 0 levetiracetam 500 mg tablet 1,500 mg PO BID RF: 0 magnesium chloride [Mag 64] 64 mg Tablet,Delayed Release (Dr/Ec) 64 mg PO BID Qty: 60 RF: 0 metoclopramide HCl 5 mg tablet 5 mg PO AC RF: 0 morphine 15 mg Tablet Extended Release 30 mg PO Q12 Qty: 90 RF: 0 lorazepam 1 mg tablet 1 mg PO TID PRN (Reason: Anxiety) RF: 0 potassium chloride 20 mEq tablet extended release 20 meq PO DAILY Qty: 14 RF: 0 Discharge Problem: Lung cancer Qualifiers: Lung location: unspecified part of lung
[2020-11-28] MEDS ORDERED: SODIUM CHLORIDE 0.9% 1000ML 1,000 ML IV SCH (10:45)
[2020-11-28 11:17] LABS: Basophils # (auto) 0.01 K/uL (0-0.2); Basophils % (auto) 0.1 %; Eosinophils # (auto) 0.02 K/uL (0-0.5); Eosinophils % (auto) 0.2 %; Hematocrit (blood only) 39.3 % (37-47); Hemoglobin 13.5 g/dL (12.0-16.0); Immature Granulocytes # (auto) 0.14 K/uL (0.00-0.02); Immature Granulocytes % (auto) 1.5 %; Lymphocytes # (auto) 1.32 K/uL (1.2-3.4); Lymphocytes % (auto) 14.6 %; Mean Corpuscular Hemoglobin 30.9 pg (25-34); Mean Corpuscular Hgb Conc 34.4 g/dL (32-36); Mean Corpuscular Volume 89.9 fL (80-100); Mean Platelet Volume 10.2 fL (7.4-10.4); Monocytes # (auto) 0.97 K/uL (0.11-0.59); Monocytes % (auto) 10.7 %; Neutrophils # (auto) 6.61 K/uL (1.4-6.5); Neutrophils % (auto) 72.9 %; Platelet Count 137 K/uL (130-400); RDW Coefficient of Variation 12.8 % (11.5-14.5); RDW Standard Deviation 41.9 fL (36.4-46.3); Red Blood Count 4.37 M/uL (4.2-5.4); White Blood Count 9.07 K/uL (4.8-10.8)
[2020-11-28 11:45] LABS: Alanine Aminotransferase 21 U/L (12-78); Albumin Level 3.3 gm/dl (3.4-5.0); Aspartate Aminotransferase 35 U/L (15-37); BUN Creatinine Ratio 20.7 (10-20); Blood Urea Nitrogen 7 mg/dl (7-18); Carbon Dioxide 24 mmol/L (21-32); Chloride 98 mmol/L (98-107); Creatinine Clr Calc Pharmacy 218.2 ml/min; Est GFR (African American) > 150.0 ml/min; Est GFR (Non-African American) 136.3 ml/min; Glucose 82 mg/dl (70-99); Potassium 2.6 mmol/L (3.5-5.1); Sodium 134 mmol/L (136-145)
[2020-11-28 11:56] LABS: Albumin Globulin Ratio 0.9 (0.9-2); Alkaline Phosphatase 114 U/L (45-117); Globulin 3.8 gm/dl (2.5-4.0); Total Protein 7.1 gm/dl (6.4-8.2); Troponin I < 0.015 ng/ml (0-0.045)
[2020-11-28] MEDS ORDERED: HEPARIN 100 UNIT/ML 5ML FLUSH ONE (12:16)
[2020-11-28] MEDS ORDERED: OPTIRAY 320 125ml IV ONE (12:40)
--- NOTE | 2020-11-28 13:18 | CT Scan Report ---
CT ANGIOGRAM OF THE CHEST CLINICAL HISTORY: Cough and dyspnea. COMPARISON STUDY: Chest x-ray dated 11/27/[address] dated 07/29/2020. Abdominal CT dated . TECHNIQUE: Following the IV administration of 119 cc of Optiray 320, CT angiogram of the chest was pe rformed from the upper abdomen to the thoracic inlet utilizing the pulmonary embolus protocol. Images are reviewed in the axial, sagittal, and coronal planes. 3-D MIPS images are created and assessed. I V contrast was administered without complication. A dose lowering technique was utilized adhering to the principles of ALARA. CT DOSE: 619.16 mGy.cm FINDINGS: Thyroid: Imaged portions of the thyroid gland are normal in size and attenuation. Thoracic aorta: The thoracic aorta is normal in caliber and demonstrates standard 3-vessel arch anato my. No dissection is seen. Pulmonary vasculature: The pulmonary trunk is normal in caliber. There are no filling defects identif ied in main, lobar, or segmental pulmonary branches to suggest pulmonary embolus. Heart: A left subclavian central venous infusion port is in place. The heart is normal in size and wi thout pericardial effusion. Lungs and pleural spaces: Moderate to advanced emphysematous change is identified. A spiculated right upper lobe mass which crosses the major fissure is seen on image #190 and measures approximately 5 x 6 x 5 cm. This shows central necrosis and extends to the hilum. Intralobular septal thickening and n odularity in the right upper, middle, and lower lobes may represent lymphangitic spread of tumor. A h ilar component of this lesion an/or hilar adenopathy on #182 measures 3.7 x 2.7 cm. This encases and narrows the Central pulmonary arteries and bronchi. There is segmental atelectasis in the right middl e lobe. Additional pulmonary nodules are scattered throughout the left lung. A 5 mm right lower lobe pulmonary nodule is seen measuring 154. There are numerous metastatic nodules throughout the left carla g. The largest is in the left lower lobe on image #132 measuring 0.9 cm. No pleural effusion is seen. There is significant narrowing of the lizeth comment the right mainstem bronchus, and the right bron chus intermedius. The left-sided airways are clear. Lower neck: There are mildly enlarged right supraclavicular lymph nodes. These measure up to 9 mm ian rt axis. Mediastinum: Centrally necrotic alexa aggregate in the precarinal space on image #204 measures 5.8 x 5.2 cm. Additional enlarged prevascular nodes measure up to 1.0 cm in short axis. A subcarinal alexa lesion measures 3.8 x 2.7 cm. Keena: Enlarged left hilar nodes measure up to 1.6 cm short axis. The right hilum is obscured by the d ominant mass lesion.. Axillae: Enlarged left axillary node measures 1.7 x 1.6 cm as seen on image #227. No right axillary a denopathy is identified. Upper abdomen: The liver appears steatotic. The gallbladder surgically absent. The common bile duct s tent is partially visualized. Pneumobilia suggests patency of the stent. Bilateral adrenal metastases are again noted. Skeletal structures: The skeletal structures are osteopenic. No lytic or blastic bony lesions are see n. Postoperative change is partially visualized in the left proximal humerus. Soft tissues: Bilateral breast implants are in place. IMPRESSION: 1. There is no evidence of pulmonary embolus in the main, lobar, or segmental pulmonary arteries. 2. Emphysema. 3. A large spiculated mass in the right upper lobe is similar in size to the 07/29/2020 examination. 4. There is an increasing right hilar component of this lesion/adenopathy, with numerous bilateral pu lmonary metastases. Lymphangitic spread of tumor is suggested throughout the right lung and this has progressed as compared to 07/29/2020. 5. There is extensive mediastinal lymphadenopathy, as well as left hilar and right supraclavicular ly mphadenopathy. This also appears overall modestly progressed. 6. Adrenal metastases are again noted. 7. Left axillary adenopathy persists but appears decreased from 07/29/2020. ACT 112: Negative or not required by law. Electronically signed by: Georges Aguirre M.D. 11/28/2020 1:17 PM
--- NOTE | 2020-11-28 13:26 | CT Scan Report ---
CT angio abdomen pelvis w con CT DOSE: CLINICAL HISTORY: ab pain; h/o biliary stent TECHNIQUE: A dose lowering technique was utilized adhering to the principles of ALARA. COMPARISON STUDY: October 31, 2020 FINDINGS: Abdominal aorta is normal in caliber without evidence of stenosis, abnormal dilatation or dissection. Celiac, superior mesenteric, bilateral renal and inferior mesenteric arteries are patent. Limited evaluation of lung bases again shows 11 mm pulmonary nodule within the right lower lobe (7/48 5) and stable mild lingular atelectasis. Interval development of innumerable patchy solid nodules with surrounding groundglass attenuation whi ch were not seen on October 31, 2020 exam likely representing infectious/inflammatory etiology (example i s seen on series 7 image 479). Trace pericardial effusion is seen. Evaluation of the liver shows mild interval prominence of central pneumobilia mostly within left lob e of the liver. Common bile duct stent with air-fluid level is again seen. Redemonstration of fullness of the pancreatic head and dilatation of the distal pancreatic duct with cutoff sign. Spleen is unremarkable. Redemonstration of bilateral adrenal nodules which is not significantly changed since prior, largest is seen on the left measuring 3.4 x 2.4 cm in size. No hydronephrosis or nephrolithiasis seen. Previously seen areas of decreased enhancement of the righ t renal cortex shows no enhancement on current exam and no evidence of significant surrounding fat st randing, could represent areas of infarct or pyelonephritis. Bowel loops are nondilated. Oral contrast is seen within colonic loops. Appendix is nondilated and fi lled with oral contrast. Urinary bladder is adequately filled with urine. 1.4 cm slightly enhancing mass is seen within inferi or urinary bladder wall. Uterus is surgically absent. Redemonstration of multiple slightly prominent retroperitoneal and mesenteric lymph nodes. No definite osseous metastatic lesions are seen. IMPRESSION: 1. Patent biliary stent with gas fluid level. Mild interval worsening of pneumobilia. Redemonstratio n of pancreatic head fullness and dilated distal pancreatic duct, similar to prior study. Cutoff sign of the pancreatic duct usually seen in malignancy. Differential diagnosis might include focal pancre atitis however is less likely. 2. Interval prominence of multiple pulmonary nodules with surrounding groundglass attenuation which might represent infectious/inflammatory process. Please correlate above-mentioned findings with clini prema presentation of pulmonary infection disease. 3. Redemonstration of patchy area of nonenhancement within the right renal cortex which might repres ent infarct or pyelonephritis. No surrounding fat stranding is seen. 4. Aorta is normal in caliber without aneurysmal dilatation, stenosis or dissection. Celiac, superio r mesenteric and renal arteries are patent. 5. Small slightly enhancing mass within the urinary bladder. 6. Retroperitoneal and mesenteric lymphadenopathy. ACT 112: Positive. There are findings on this exam that require communication between the performing entity and the patient following Patient Test Result Information Act ([place] Act 112) guidelines. The above report was generated using voice recognition software. It may contain grammatical, syntax o r spelling errors. Electronically signed by: Neha Gonzalez DO 11/28/2020 1:25 PM
--- NOTE | 2020-11-28 14:45 | History & Physical Report ---
Date of Service November 28, 2020 Assessment & Plan (1) Adenocarcinoma of lung: (2) Brain metastases: (3) Pancreatic mass: (4) Metastatic cancer: (5) Hospice care: -Admit to [facility] -Palliative care consultation placed as the patient is on hospice and presents to the ER with inadequate pain control. She was in the ER on 11/27 and given 2 mg IV Dilaudid at that point time and sent home. Patient represents today with worsening abdominal pain. Patient reports near inability to eat food but is able to take some meds via mouth. Struggles with large capsules/tablets such as potassium and has not been taking this. -2 mg IV Dilaudid given in the ER, will restart Dilaudid INTERMEDIATE TEACHER with 1 mg bolus, 0.2 mg with lockout of 20 minutes. Patient has been using INTERMEDIATE TEACHER at home however did not find significant relief, will slightly increase in dosages while here in the hospital to optimize her pain control. Narcan as needed ordered. -Holding IR oxycodone prn, allow ER morphine Q12h scheduled. -Allow patient to continue Ativan 1 mg TID anxiety -Continue Keppra 1500 mg twice daily for seizure disorder -Patient is now off prednisone taper which was prescribed after her last hospital stay -Continue antiemetics as needed, bowel regimen DVT PPx: - teds, scds CODE: DNR/DNI Dispo: From home, likely to remain in the hospital x 1-2 days History of Present Illness Primary Care Provider: Jasiel Fritz DO This is a 45 yo F with PMHx significant for NSCLC with brain mets status post stereotactic radiosurgery, brain tumor resection (05/2020) on steroid Rx on chemotherapy, with metastatic pancreatic mass found previous admission at end of October 2020. During that time, she had biliary enteric stent with secondary pneumobilia. She was also placed on a steroid taper discussed with Dr. Barillas. Palliative care was consulted at that time for goals of care, with transition towards hospice care. At that time the patient was not ready to transition to comfort care, and requested second opinion from oncology with [facility]. She went home with INTERMEDIATE TEACHER pump Dilaudid with 1 mg baseline and bolus 0.5 mg with 30 minute lock. Other PMHs includes history seizures, history TIA, breast cancer status post mastectomy, history BRCA gene mutation positivity, chronic anemia (baseline hemoglobin of 10-11), orthostatic hypotension on fludrocortisone and midodrine, past tobacco abuse. Pt returns to the ER for worsening abdominal pain and is agreeable to being admitted for pain control. She is present with her at bedside and reports that she is already on hospice. The patient is intermittently tearful during my exam. She does not want any of her medications changed other than having the Dilaudid INTERMEDIATE TEACHER readjusted. She is willing to see palliative care while she is here. Pt was in the ER yesterday and was given Dilaudid 2 mg IV and a potassium replacement via IV, and went home. Pt now returned due to complaints previously mentioned. Allergies Allergy/AdvReac Type Severity Reaction Status Date / Time Penicillins Allergy Intermediate Swelling Verified 11/27/20 02:40 Home Medications Medication Instructions Recorded Confirmed Type folic acid 1 mg PO QAM 07/09/20 11/28/20 History ondansetron 8 mg PO Q8H PRN 07/09/20 11/28/20 History prochlorperazine maleate 10 mg PO Q6H PRN 07/09/20 11/28/20 History morphine 15 mg PO Q12H #60 tab 07/16/20 10/17/20 Rx polyethylene glycol 3350 [Miralax] 17 g PO QID PRN 07/23/20 11/28/20 History sennosides-docusate sodium 1 tab PO BID PRN 07/23/20 11/28/20 History [Senokot-S] docusate sodium 100 mg PO BID PRN 07/29/20 11/28/20 History levetiracetam 1,500 mg PO BID 08/16/20 11/28/20 History magnesium chloride [Mag 64] 64 mg PO BID #60 tab 09/02/20 11/28/20 Rx metoclopramide HCl 5 mg PO AC 09/04/20 11/28/20 History fludrocortisone 0.1 mg PO QAM #30 tab 10/21/20 11/28/20 Rx midodrine 10 mg PO TID@0700,1300,1800 #90 tab 10/21/20 11/28/20 Rx morphine 15 mg PO Q4H PRN #90 tab 10/21/20 11/28/20 Rx naloxone 4 mg/actuation nasal spray 1 spray INTRANASAL Q3M PRN #2 ea 10/23/20 11/28/20 Rx morphine 30 mg PO Q12 #90 tab 10/25/20 11/28/20 Rx lorazepam 1 mg PO TID PRN 10/26/20 11/28/20 History potassium chloride 20 meq PO DAILY #14 tab 10/27/20 11/28/20 Rx guaifenesin [Mucinex] 1,200 mg PO Q12 #10 tab 11/15/20 11/28/20 Rx prednisone 20 mg PO DAILY #5 tab 11/15/20 11/28/20 Rx bisacodyl [Dulcolax (bisacodyl)] 10 mg AK DAILY PRN 11/27/20 11/28/20 History hydromorphone 0 mg IV UD 11/27/20 11/28/20 History hyoscyamine sulfate 0.125 mg SUBLINGUAL Q4 PRN 11/27/20 11/28/20 History lactulose 30 ml PO BID PRN 11/27/20 11/28/20 History omeprazole 20 mg PO DAILY 11/27/20 11/28/20 History oxycodone 5 - 10 mg PO Q6 PRN 11/27/20 11/28/20 History Past Med/Surg History Medical History Abdominal pain Adenocarcinoma of lung w/ extensive lymphadenopathy in the neck, chest, abdomen; brain and bilateral adrenal metastases Anxiety Brain metastases BRCA gene positive Hx of breast cancer Palliative care encounter Palliative care encounter Seizure disorder Due to tumor edematous burden Surgical History H/O bilateral mastectomy H/O craniotomy 05/2020-right frontal craniotomy for brain tumor resection H/O: hysterectomy History of cholecystectomy Family History Aunt Breast cancer Social History Smoking Status: Never smoker Tobacco Type: Cigarettes packs per day: 1; Years Smoked: 23; Second Hand Exposure: No; Hx Alcohol Use: No Hx Substance Use: No Preferred Language: Danish Communication Ability: Effective Executive Wellness Programs Director Required: No Beliefs That Will Affect Care: None marital status: Current Living Situation: Spouse How many Children do You have: 2 Feels Safe at Home: Yes Assistive Devices: Oxygen - Continuous Review of Systems Review of Systems: Constitutional: No fever, sweats or chills, + pain throughout rated an 8 out of 10, weakness Eyes: No diplopia, no worsening or blurred vision ENT: normal hearing, no trouble swallowing Respiratory: + Cough, sputum with hemoptysis, no dyspnea at rest, but does have on exertion Cardiovascular: No chest pain, tightness or palpitations Abdomen: No pain, nausea, vomiting, diarrhea or constipation Musculoskeletal: No joint pain, calf pain, swelling Neurologic: + Generalized weakness, numbness/tingling, or balance problems Psychiatric: + Anxiety and depression Skin: No rash or itch Physical Exam Physical Exam: General: awake, alert, no apparent distress, + anxious and tearful Head: Normocephalic, atraumatic ENT: PERRL, EOMI, no pharyngeal exudate, mucous membranes slightly dry Chest: on room air, + rhonchorous breath sounds throughout, cough, no sputum production, no wheezes or rales. Cardiac: Sinus tachycardia, no murmur, no JVD, normal peripheral pulses, good capillary refill Abdominal: NABS x 4 quadrants, soft, nondistended, + tender with minimal palpation, no rebound or guarding Extremities: Normal inspection, no peripheral edema or erythema, calfs nontender to palpation Psych: Normal mood and affect Neuro: AAO x 3, strength intact bilaterally and rated 5/5, no motor deficits, speech is clear, no peripheral sensory deficits Results & Data Results & Data ([facility]) Vital Signs (Past 12 Hours) Vital Signs Temp Pulse Resp BP Pulse Ox 11/28/20 12:59 94 11/28/20 12:00 112 H 23 125/85 99 11/28/20 11:30 100 H 12 133/81 97 11/28/20 11:15 103 H 19 96 11/28/20 10:00 36.8 C 123 H 16 106/73 98 Diagnostic Findings Abdomen/Pelvis CTA 11/28/20 11:21 CT angio abdomen pelvis w con CT DOSE: CLINICAL HISTORY: ab pain; h/o biliary stent TECHNIQUE: A dose lowering technique was utilized adhering to the principles of ALARA. COMPARISON STUDY: October 31, 2020 FINDINGS: Abdominal aorta is normal in caliber without evidence of stenosis, abnormal dilatation or dissection. Celiac, superior mesenteric, bilateral renal and inferior mesenteric arteries are patent. Limited evaluation of lung bases again shows 11 mm pulmonary nodule within the right lower lobe (7/485) and stable mild lingular atelectasis. Interval development of innumerable patchy solid nodules with surrounding scarlett undglass attenuation which were not seen on October 31, 2020 exam likely representing infectious/inflammatory etiology (example is seen on series 7 image 479). Trace pericardial effusion is seen. Evaluation of the liver shows mild interval prominence of central pneumobilia mostly within left lobe of the liver. Common bile duct stent with air-fluid level is again seen. Redemonstration of fullness of the pancreatic head and dilatation of the distal pancreatic duct with cutoff sign. Spleen is unremarkable. Redemonstration of bilateral adrenal nodules which is not significantly changed since prior, largest is seen on the left measuring 3.4 x 2.4 cm in size. No hydronephrosis or nephrolithiasis seen. Previously seen areas of decreased enhancement of the right renal cortex shows no enhancement on current exam and no evidence of significant surrounding fat stranding, could represent areas of infarct or pyelonephritis. Bowel loops are nondilated. Oral contrast is seen within colonic loops. Appendix is nondilated and filled with oral contrast. Urinary bladder is adequately filled with urine. 1.4 cm slightly enhancing mass is seen within inferior urinary bladder wall. Uterus is surgically absent. Redemonstration of multiple slightly prominent retroperitoneal and mesenteric lymph nodes. No definite osseous metastatic lesions are seen. IMPRESSION: 1. Patent biliary stent with gas fluid level. Mild interval worsening of pneumobilia. Redemonstration of pancreatic head fullness and dilated distal pancreatic duct, similar to prior study. Cutoff sign of the pancreatic duct usually seen in malignancy. Differential diagnosis might include focal pancreatitis however is less likely. 2. Interval prominence of multiple pulmonary nodules with surrounding groundglass attenuation which might represent infectious/inflammatory process. Please correlate above-mentioned findings with clinical presentation of pulmonary infection disease. 3. Redemonstration of patchy area of nonenhancement within the right renal cortex which might represent infarct or pyelonephritis. No surrounding fat stranding is seen. 4. Aorta is normal in caliber without aneurysmal dilatation, stenosis or dissection. Celiac, superior mesenteric and renal arteries are patent. 5. Small slightly enhancing mass within the urinary bladder. 6. Retroperitoneal and mesenteric lymphadenopathy. ACT 112: Positive. There are findings on this exam that require communication between the performing entity and the patient following Patient Test Result Information Act ([place] Act 112) guidelines. The above report was generated using voice recognition software. It may contain grammatical, syntax or spelling errors. Electronically signed by: Neha Gonzalez DO 11/28/2020 1:25 PM Chest CTA 11/28/20 11:21 CT ANGIOGRAM OF THE CHEST CLINICAL HISTORY: Cough and dyspnea. COMPARISON STUDY: Chest x-ray dated 11/27/[address] dated 07/29/2020. Abdo christiano CT dated 10/31/2020. TECHNIQUE: Following the IV administration of 119 cc of Optiray 320, CT angiogram of the chest was performed from the upper abdomen to the thoracic inlet utilizing the pulmonary embolus protocol. Images are reviewed in the axial, sagittal, and coronal planes. 3-D MIPS images are created and assessed. IV contrast was administered without complication. A dose lowering technique was utilized adhering to the principles of ALARA. CT DOSE: 619.16 mGy.cm FINDINGS: Thyroid: Imaged portions of the thyroid gland are normal in size and attenuation. Thoracic aorta: The thoracic aorta is normal in caliber and demonstrates standard 3-vessel arch anatomy. No dissection is seen. Pulmonary vasculature: The pulmonary trunk is normal in caliber. There are no filling defects identified in main, lobar, or segmental pulmonary branches to suggest pulmonary embolus. Heart: A left subclavian central venous infusion port is in place. The heart is normal in size and without pericardial effusion. Lungs and pleural spaces: Moderate to advanced emphysematous change is identified. A spiculated right upper lobe mass which crosses the major fissure is seen on image #190 and measures approximately 5 x 6 x 5 cm. This shows central necrosis and extends to the hilum. Intralobular septal thickening and nodularity in the right upper, middle, and lower lobes may represent lym phangitic spread of tumor. A hilar component of this lesion an/or hilar adenopathy on #182 measures 3.7 x 2.7 cm. This encases and narrows the Central pulmonary arteries and bronchi. There is segmental atelectasis in the right middle lobe. Additional pulmonary nodules are scattered throughout the left lung. A 5 mm right lower lobe pulmonary nodule is seen measuring 154. There are numerous metastatic nodules throughout the left lung. The largest is in the left lower lobe on image #132 measuring 0.9 cm. No pleural effusion is seen. There is significant narrowing of the lizeth comment the right mainstem bronchus, and the right bronchus intermedius. The left-sided airways are clear. Lower neck: There are mildly enlarged right supraclavicular lymph nodes. These measure up to 9 mm short axis. Mediastinum: Centrally necrotic alexa aggregate in the precarinal space on image #204 measures 5.8 x 5.2 cm. Additional enlarged prevascular nodes measure up to 1.0 cm in short axis. A subcarinal alexa lesion measures 3.8 x 2.7 cm. Keena: Enlarged left hilar nodes measure up to 1.6 cm short axis. The right hilum is obscured by the dominant mass lesion.. Axillae: Enlarged left axillary node measures 1.7 x 1.6 cm as seen on image #227. No right axillary adenopathy is identified. Upper abdomen: The liver appears steatotic. The gallbladder surgically absent. The common bile duct stent is partially visualized. Pneumobilia suggests patency of the stent. Bilateral adrenal metastases are again noted. Skeletal structures: The skeletal structures are osteopenic. No lytic or blastic bony lesions are seen. Postoperative change is partially visualized in the left proximal humerus. Soft tissues: Bilateral breast implants are in place. IMPRESSION: 1. There is no evidence of pulmonary embolus in the main, lobar, or segmental pulmonary arteries. 2. Emphysema. 3. A large spiculated mass in the right upper lobe is similar in size to the 07/29/2020 examination. 4. There is an increasing right hilar component of this lesion/adenopathy, with numerous bilateral pulmonary metastases. Lymphangitic spread of tumor is suggested throughout the right lung and this has progressed as compared to 07/29/2020. 5. There is extensive mediastinal lymphadenopathy, as well as left hilar and right supraclavicular lymphadenopathy. This also appears overall modestly progressed. 6. Adrenal metastases are again noted. 7. Left axillary adenopathy persists but appears decreased from 07/29/2020. ACT 112: Negative or not required by law. Electronically signed by: Georges Aguirre M.D. 11/28/2020 1:17 PM ECG Additional Comments: 28-NOV-2020 11:09:08 [facility]-EDSTAT ROUTINE RETRIEVAL Sinus tachycardia Otherwise normal ECG When compared with ECG of 31-OCT-2020 09:29, Nonspecific T wave abnormality now evident in Anterior leads 25mm/s 10mm/mV 150Hz 9.0.9 12SL 241 STEVEN: 11 Referred by: REFERRED SELF Unconfirmed Vent. rate 105 BPM AK interval 116 ms QRS duration 76 ms QT/QTc 308/407 ms Code Status & VTE Plan Code Status DNR/DNI Supervising Physician Co-Signing Physician Notes Patient is a 45-year-old female with history of metastatic non-small cell lung cancer, pancreatic mass, anemia of chronic disease, seizure disorder, h/o breast cancer and other medical problems currently on hospice presents with history of intractable abdominal pain. Patient states that her Dilaudid INTERMEDIATE TEACHER pump is planned to be adjusted. Palliative care and currently was no longer able to control her abdominal pain while at home. She denies any chest pain, shortness of breath. She had an episode of vomiting while in the ED. Imaging studies suggestive of metastatic disease. Also noted significant hypokalemia on blood work. On exam patient is moderately admitted nourished, mild distress secondary to pain, tearful, normocephalic atraumatic, EOMI, course breath sounds, S1-S2, tachycardia, no murmur, pedal edema, abdomen soft, tenderness generalized, normal bowel sounds, alert, awake, oriented, grossly nonfocal deficits. Patient is admitted for management of intractable pain secondary to metastatic disease. We will continue Dilaudid pain INTERMEDIATE TEACHER pump. Will consult palliative care for further management. Continue home medications for seizure disorder for now. Patient agrees to be DNI DNR currently. Family agrees with current management. I personally reviewed the record. Patient is interviewed and examined at bedside. Patient's care is coordinated with Diana Mccrary PA-C. Please refer to the documentation above for details of patient's presentation and for discussion of other issues. (1) Adenocarcinoma of lung Laterality: unspecified laterality Qualified Code(s): C34.90 - Malignant neoplasm of unspecified part of unspecified bronchus or lung
[2020-11-28] MEDS ORDERED: HYDROmorphone Bolus from PCA IV STA (15:49)
[2020-11-28] MEDS ORDERED: NALOXONE HCL 0.4 MG/1 ML VIAL/CARP IV PRN (15:49)
[2020-11-28] MEDS ORDERED: HYDROmorphone PCA 30 MG/30 ML IV PRN (15:49)
[2020-11-28] MEDS: POTASSIUM CHLORIDE 20 MEQ/15 ML UDC PO STA ×2 (17:43→18:03)
[2020-11-28] MEDS ORDERED: POTASSIUM CHLORIDE / WTR 10 MEQ/100 ML PLCT IV STA (17:59)
[2020-11-28] MEDS ORDERED: bisacodyL 10 MG SUPP PR PRN (18:05)
[2020-11-28] MEDS ORDERED: POLYETHYLENE (MIRALAX) 17 GM PACK PO PRN (18:05)
[2020-11-28] MEDS ORDERED: HYOSCYAMINE SULFATE 0.125 MG TAB SL PRN (18:05)
[2020-11-28] MEDS ORDERED: DOCUSATE SODIUM/SENNA 50/8.6MG TAB PO PRN (18:05)
[2020-11-28] MEDS ORDERED: ONDANSETRON INJ 2 MG/ML 2 ML VIAL IV PRN (18:05)
[2020-11-28] MEDS ORDERED: DOCUSATE SODIUM 100 MG CAP PO PRN (18:05)
[2020-11-28] MEDS ORDERED: LACTULOSE SYRUP 20 GM/30 ML UDC PO PRN (18:13)
[2020-11-28] MEDS ORDERED: LORazepam 1 MG TAB PO PRN (18:14)
[2020-11-28] MEDS: SODIUM CHLORIDE 0.9% 1000ML 1,000 ML IV SCH (18:43)
[2020-11-28] MEDS: ondansetron HCL 8 MG in DEXTROSE 5% 50 ML IV PRN (19:29)
[2020-11-28] MEDS: POTASSIUM CHLORIDE 40 MEQ in SODIUM CHLORIDE 0.9% 1000ML 1,000 ML IV SCH (20:16)
[2020-11-28] MEDS: POTASSIUM CHLORIDE / WTR 10 MEQ/100 ML PLCT IV SCH ×2 (20:18→21:26)
[2020-11-28] MEDS: PROCHLORPERAZINE 10 MG in SYRINGE 8 ML IV PRN (21:25)
[2020-11-28] MEDS ORDERED: PROMETHAZINE HCL 12.5 MG in SODIUM CHLORIDE 0.9% 50 ML IV STA (21:51)
[2020-11-28] MEDS: MoRPHine SULFATE CR 15 MG TABCR PO SCH (22:21)
[2020-11-28] MEDS: MAGNESIUM CHLORIDE 64MG DELAYED REL TAB PO SCH (22:22)
[2020-11-28] MEDS: guaiFENesin 600 MG TABCR PO SCH (22:22)
[2020-11-28 22:39] LABS: Appearance Urine Clear (Clear); Bacteria Urine Automated 1+ (Negative); Bilirubin Urine Negative (Negative); Blood Urine Trace (Negative); Color Urine Yellow; Epithelial Cell Urine Auto >30 /lpf (0-5); Glucose Urine UA Negative (Negative); Ketones Urine 4+ (Negative); Leukocyte Esterase Urine Negative (Negative); Nitrite Urine Negative (Negative); Protein Urine Trace (Negative); RBC Urine Automated 0-4 /hpf (0-4); Specific Gravity Urine 1.027 (1.000-1.030); Urobilinogen Urine Negative (Negative); pH Urine 5.5 (4.5-7.5)
[2020-11-28] MEDS: levETIRAcetam 500 MG TAB PO SCH (22:44)
[2020-11-28] MEDS: METOCLOPRAMIDE HCL 5 MG TABLET PO SCH (22:45)
[2020-11-28] MEDS: MIDODRINE HCL 10 MG TAB PO SCH (22:45)
[2020-11-28 23:03] LABS: BUN Creatinine Ratio 9.4 (10-20); Blood Urea Nitrogen 3 mg/dl (7-18); Calcium 9.2 mg/dl (8.5-10.1); Carbon Dioxide 22 mmol/L (21-32); Chloride 102 mmol/L (98-107); Creatinine Clr Calc Pharmacy 249.3 ml/min; Est GFR (African American) > 150.0 ml/min; Est GFR (Non-African American) 142.4 ml/min; Glucose 83 mg/dl (70-99); Potassium 3.3 mmol/L (3.5-5.1); Sodium 137 mmol/L (136-145)
[2020-11-29] MEDS ORDERED: HYDROmorphone INJ 0.5 MG/0.5 ML SYR IV STA ×2 (02:00→04:52)
[2020-11-29] MEDS: ondansetron HCL 8 MG in DEXTROSE 5% 50 ML IV PRN ×2 (02:07→06:10)
[2020-11-29] MEDS: HYDROmorphone INJ 0.5 MG/0.5 ML SYR IV PRN ×4 (03:49→13:11)
[2020-11-29] MEDS: POTASSIUM CHLORIDE 40 MEQ in SODIUM CHLORIDE 0.9% 1000ML 1,000 ML IV SCH ×3 (04:45→20:05)
--- NOTE | 2020-11-29 06:42 | Electrocardiogram Report ---
Test Reason : Blood Pressure : / mmHG Vent. Rate : 105 BPM Atrial Rate : 105 BPM P-R Int : 116 ms QRS Dur : 076 ms QT Int : 308 ms P-R-T Axes : 056 087 060 degrees QTc Int : 407 ms Sinus tachycardia Nonspecific T wave abnormality When compared with ECG of 31-OCT-2020 09:29, Nonspecific T wave abnormality now evident in Anterior leads Confirmed by Dillan Mckinney ([id number]) on 11/29/2020 6:41:58 AM Referred By: REFERRED SELF Confirmed By:Dillan Mckinney
[2020-11-29 08:11] LABS: BUN Creatinine Ratio 6.6 (10-20); Blood Urea Nitrogen 2 mg/dl (7-18); Calcium 8.9 mg/dl (8.5-10.1); Carbon Dioxide 22 mmol/L (21-32); Chloride 105 mmol/L (98-107); Creatinine Clr Calc Pharmacy 258.6 ml/min; Est GFR (African American) > 150.0 ml/min; Est GFR (Non-African American) 144.2 ml/min; Glucose 88 mg/dl (70-99); Magnesium 1.5 mg/dl (1.8-2.4); Potassium 3.3 mmol/L (3.5-5.1); Sodium 138 mmol/L (136-145)
[2020-11-29] MEDS: PROCHLORPERAZINE 10 MG in SYRINGE 8 ML IV PRN (08:32)
--- NOTE | 2020-11-29 08:53 | Pain Management Consultation ---
Date of Consultation November 29, 2020 Assessment & Plan (1) Adenocarcinoma of lung: Laterality: unspecified laterality Qualified Code(s): C34.90 - Malignant neoplasm of unspecified part of unspecified bronchus or lung (2) Metastatic cancer: (3) Epigastric abdominal pain: We have discussed pursuing a Celiac Plexus Nerve Block during the patient's hospital stay. Risks and benefits have been reviewed. Procedure has been explained and she would like to proceed. Celiac Plexus Nerve Block will be performed 11/30/20 at 11:[address] Pratt. History of Present Illness Attending Physician: Jose Farris MD History of Present Illness Mrs. Copeland is a 45 year old female with NSCLCA with metastasis. Brain met did require stereotactic radiosurgery and tumor resection. She was diagnosed with a pancreatic mass last month. Her predominant pain complaint is located in the epigastric and left upper abdomen. The pain will radiate into the back. Patient is in hospice and has a Dilaudid YARN CLEANER at home which has not been providing adequate pain relief. There is associated nausea. Pain is currently 8/10 and she is vomiting. She has been previously offered a Celiac Plexus nerve block but her pain typically improved shortly after admission so it was deferred. Pain Assessment Full Body Front + Back: 1. [facility] Combined Pain Scale: 8-Debilitating - Impairs activity. Can't maintain a conversation. Allergies Allergy/AdvReac Type Severity Reaction Status Date / Time Penicillins Allergy Intermediate Swelling Verified 11/27/20 02:40 Home Medications Medication Instructions Recorded Confirmed Type folic acid 1 mg PO QAM 07/09/20 11/28/20 History ondansetron 8 mg PO Q8H PRN 07/09/20 11/28/20 History prochlorperazine maleate 10 mg PO Q6H PRN 07/09/20 11/28/20 History morphine 15 mg PO Q12H #60 tab 07/16/20 10/17/20 Rx polyethylene glycol 3350 [Miralax] 17 g PO QID PRN 07/23/20 11/28/20 History sennosides-docusate sodium 1 tab PO BID PRN 07/23/20 11/28/20 History [Senokot-S] docusate sodium 100 mg PO BID PRN 07/29/20 11/28/20 History levetiracetam 1,500 mg PO BID 08/16/20 11/28/20 History magnesium chloride [Mag 64] 64 mg PO BID #60 tab 09/02/20 11/28/20 Rx metoclopramide HCl 5 mg PO AC 09/04/20 11/28/20 History fludrocortisone 0.1 mg PO QAM #30 tab 10/21/20 11/28/20 Rx midodrine 10 mg PO TID@0700,1300,1800 #90 tab 10/21/20 11/28/20 Rx morphine 15 mg PO Q4H PRN #90 tab 10/21/20 11/28/20 Rx naloxone 4 mg/actuation nasal spray 1 spray INTRANASAL Q3M PRN #2 ea 10/23/20 11/28/20 Rx morphine 30 mg PO Q12 #90 tab 10/25/20 11/28/20 Rx lorazepam 1 mg PO TID PRN 10/26/20 11/28/20 History potassium chloride 20 meq PO DAILY #14 tab 10/27/20 11/28/20 Rx guaifenesin [Mucinex] 1,200 mg PO Q12 #10 tab 11/15/20 11/28/20 Rx prednisone 20 mg PO DAILY #5 tab 11/15/20 11/28/20 Rx bisacodyl [Dulcolax (bisacodyl)] 10 mg [place] DAILY PRN 11/27/20 11/28/20 History hydromorphone 0 mg IV UD 11/27/20 11/28/20 History hyoscyamine sulfate 0.125 mg SUBLINGUAL Q4 PRN 11/27/20 11/28/20 History lactulose 30 ml PO BID PRN 11/27/20 11/28/20 History omeprazole 20 mg PO DAILY 11/27/20 11/28/20 History oxycodone 5 - 10 mg PO Q6 PRN 11/27/20 11/28/20 History Patient History Medical History Abdominal pain Adenocarcinoma of lung w/ extensive lymphadenopathy in the neck, chest, abdomen; brain and bilateral adrenal metastases Anxiety Brain metastases BRCA gene positive Hx of breast cancer Palliative care encounter Palliative care encounter Seizure disorder Due to tumor edematous burden Surgical History H/O bilateral mastectomy H/O craniotomy 05/2020-right frontal craniotomy for brain tumor resection H/O: hysterectomy History of cholecystectomy Family History Aunt Breast cancer Social History Smoking Status: Former smoker Tobacco Type: Cigarettes packs per day: 1; Years Smoked: 23; Second Hand Exposure: No; Do You Dip or Chew Tobacco: No; Tobacco Cessation Education Requested by Patient: No Hx Alcohol Use: No Hx Substance Use: No Preferred Language: Japanese Communication Ability: Effective Surveillance Systems Analyst Required: No Beliefs That Will Affect Care: None marital status: Current Living Situation: Spouse How many Children do You have: 2 Other Information That Helps Us Care for You: No Feels Safe at Home: Yes Safety Concerns: Feels Safe At This Time Assistive Devices: None Physical Exam Physical Exam: GENERAL: This is a 45 year old female that is anxious and tearful. Actively vomiting. HEAD/FACE: Normocephalic and atraumatic. EYES: No drainage or conjunctival injection. ENT: Nose without bleeding or discharge. Oral mucosa moist. NECK: Full ROM without apparent pain. No swelling or masses noted. RESPIRATORY: Mild wheezing noted. CHEST/AXILLA: Chest movement symmetrical. No deformities noted. ABDOMEN/GI: No distension. There is tenderness along the epigastrius and left upper abdomen. No trigger points noted. Mild lower abdominal tenderness. BACK: Moves without difficulty. No tenderness to palpation. SKIN: [place], warm and dry. No rash noted. MS/EXTREMITY: No swelling, no deformities. Moving extremities appropriately. NEURO: Alert and appears oriented. Speech is fluent. Cranial Nerves are grossly intact. PSYCH: Alert, pleasant, anxious, tearful. Results (Pain Clinic) Diagnostic Review CT Findings: CT angio abdomen pelvis w con CT DOSE: CLINICAL HISTORY: ab pain; h/o biliary stent TECHNIQUE: A dose lowering technique was utilized adhering to the principles of ALARA. COMPARISON STUDY: October 31, 2020 FINDINGS: Abdominal aorta is normal in caliber without evidence of stenosis, abnormal dilatation or dissection. Celiac, superior mesenteric, bilateral renal and inferior mesenteric arteries are patent. Limited evaluation of lung bases again shows 11 mm pulmonary nodule within the right lower lobe (7/485) and stable mild lingular atelectasis. Interval development of innumerable patchy solid nodules with surrounding groundglass attenuation which were not seen on October 31, 2020 exam likely representing infectious/inflammatory etiology (example is seen on series 7 image 479). Trace pericardial effusion is seen. Evaluation of the liver shows mild interval prominence of central pneumobilia mostly within left lobe of the liver. Common bile duct stent with air-fluid level is again seen. Redemonstration of fullness of the pancreatic head and dilatation of the distal pancreatic duct with cutoff sign. Spleen is unremarkable. Redemonstration of bilateral adrenal nodules which is not significantly changed since prior, largest is seen on the left measuring 3.4 x 2.4 cm in size. No hydronephrosis or nephrolithiasis seen. Previously seen areas of decreased enhancement of the right renal cortex shows no enhancement on current exam and no evidence of significant surrounding fat stranding, could represent areas of infarct or pyelonephritis. Bowel loops are nondilated. Oral contrast is seen within colonic loops. Appendix is nondilated and filled with oral contrast. Urinary bladder is adequately filled with urine. 1.4 cm slightly enhancing mass is seen within inferior urinary bladder wall. Uterus is surgically absent. Redemonstration of multiple slightly prominent retroperitoneal and mesenteric lymph nodes. No definite osseous metastatic lesions are seen. IMPRESSION: 1. Patent biliary stent with gas fluid level. Mild interval worsening of pneumobilia. Redemonstration of pancreatic head fullness and dilated distal pancreatic duct, similar to prior study. Cutoff sign of the pancreatic duct usually seen in malignancy. Differential diagnosis might include focal pancreatitis however is less likely. 2. Interval prominence of multiple pulmonary nodules with surrounding groundglass attenuation which might represent infectious/inflammatory process. Please correlate above-mentioned findings with clinical presentation of pul monary infection disease. 3. Redemonstration of patchy area of nonenhancement within the right renal cortex which might represent infarct or pyelonephritis. No surrounding fat stranding is seen. 4. Aorta is normal in caliber without aneurysmal dilatation, stenosis or dissection. Celiac, superior mesenteric and renal arteries are patent. 5. Small slightly enhancing mass within the urinary bladder. 6. Retroperitoneal and mesenteric lymphadenopathy. ACT 112: Positive. There are findings on this exam that require communication between the performing entity and the patient following Patient Test Result Information Act ([place] Act 112) guidelines. The above report was generated using voice recognition software. It may contain grammatical, syntax or spelling errors. Electronically signed by: Neha Gonzalez DO 11/28/2020 1:25 PM Dictated: 11/28/20 1256Transcribed: 11/28/20 1256
--- NOTE | 2020-11-29 09:08 | Palliative Care Consultation ---
Date of Consultation November 28, 2020 Assessment & Plan (1) Abdominal pain, epigastric: I had extensive discussion with Josi and her about managing her pain. She is requesting that she have injections of opioid rather than be on continuous infusion. We discussed maintaining a steady state of medication to provide more consistent pain relief and the availability of prn doses. We also discussed increased the dose of the infusion if she feels that her pain is not controlled. I again discussed other adjuvants to help with pain management which she declines. I also explained that in any setting other than the hospital, it is not feasible to do parenteral opioid injection. (2) Back pain: In the setting of metastatic lung cancer. As above. (3) Anxiety: Josi is extremely anxious and expresses that she is fearful of being at home. She feels more secure in the hospital with nursing staff available 15/12. She recognizes that anxiety exacerbates her pain and has had relief with lorazepam but has not been using prn doses at home. Would recommend doing routine dosing. (4) Lung cancer: Lung location: unspecified part of lung (5) Palliative care encounter: We talked about how she felt about hospice and whether she was comfortable with that level of care. She tells me that she is not considering any other options and wants to remain on hospice care. With that in mind, we discussed short term GIP stay for symptom management to address her pain and anxiety. I emphasized that this would only be for a few days while we adjust her medication and that she would not be able to remain in the hospital senior living. We discussed SNF placement, but this would private pay for her and they do not have the resources to do that. She is agreeable to GIP for now and we will follow. History of Present Illness Reason for Consultation: goals of care, pain management Requesting Physician: Dr. Bello Attending Physician: Jose Farris MD History of Present Illness 45 yo lady with previous history of breast cancer, metastatic lung cancer and most recently a pancreatic mass. She has had multiple hospitalizations and been followed by palliative care for symptom management and goals of care. She has severe band like pain across her upper abdomen as well as pain in her midback. She had been at home with hospice care and pain was reasonable managed with hydromorphone PIN CHASER until the last few days. She has been seen in ER twice for complaint of uncontrolled pain. The basal rate of her infusion is 1 mg/hr with a 0.5mg bolus q 30 minutes prn. I do not have information regarding how many bolus doses she was using though she describes pushing the button on the PIN CHASER every 30 minutes. She has asked to have the PIN CHASER removed in the ER because she feels that it is not working. She is currently complaining of 8/10 epigastric pain. She has been offered referral for celiac plexus block as well as other adjuvant therapies in the past but has declined them. She is tearful today and she and her tell me that she is afraid to be at home and does not want her family to see her in this condition. Per case management, she had been talking with wool sacker about wanting to look at other available treatments and there was concern that hospice may not be the appropriate fit for her at this time. Allergies Allergy/AdvReac Type Severity Reaction Status Date / Time Penicillins Allergy Intermediate Swelling Verified 11/27/20 02:40 Home Medications Medication Instructions Recorded Confirmed Type folic acid 1 mg PO QAM 07/09/20 11/28/20 History ondansetron 8 mg PO Q8H PRN 07/09/20 11/28/20 History prochlorperazine maleate 10 mg PO Q6H PRN 07/09/20 11/28/20 History morphine 15 mg PO Q12H #60 tab 07/16/20 10/17/20 Rx polyethylene glycol 3350 [Miralax] 17 g PO QID PRN 07/23/20 11/28/20 History sennosides-docusate sodium 1 tab PO BID PRN 07/23/20 11/28/20 History [Senokot-S] docusate sodium 100 mg PO BID PRN 07/29/20 11/28/20 History levetiracetam 1,500 mg PO BID 08/16/20 11/28/20 History magnesium chloride [Mag 64] 64 mg PO BID #60 tab 09/02/20 11/28/20 Rx metoclopramide HCl 5 mg PO AC 09/04/20 11/28/20 History fludrocortisone 0.1 mg PO QAM #30 tab 10/21/20 11/28/20 Rx midodrine 10 mg PO TID@0700,1300,1800 #90 tab 10/21/20 11/28/20 Rx morphine 15 mg PO Q4H PRN #90 tab 10/21/20 11/28/20 Rx naloxone 4 mg/actuation nasal spray 1 spray INTRANASAL Q3M PRN #2 ea 10/23/20 11/28/20 Rx morphine 30 mg PO Q12 #90 tab 10/25/20 11/28/20 Rx lorazepam 1 mg PO TID PRN 10/26/20 11/28/20 History potassium chloride 20 meq PO DAILY #14 tab 10/27/20 11/28/20 Rx guaifenesin [Mucinex] 1,200 mg PO Q12 #10 tab 11/15/20 11/28/20 Rx prednisone 20 mg PO DAILY #5 tab 11/15/20 11/28/20 Rx bisacodyl [Dulcolax (bisacodyl)] 10 mg [place] DAILY PRN 11/27/20 11/28/20 History hydromorphone 0 mg IV UD 11/27/20 11/28/20 History hyoscyamine sulfate 0.125 mg SUBLINGUAL Q4 PRN 11/27/20 11/28/20 History lactulose 30 ml PO BID PRN 11/27/20 11/28/20 History omeprazole 20 mg PO DAILY 11/27/20 11/28/20 History oxycodone 5 - 10 mg PO Q6 PRN 11/27/20 11/28/20 History Patient History Medical History Abdominal pain Adenocarcinoma of lung w/ extensive lymphadenopathy in the neck, chest, abdomen; brain and bilateral adrenal metastases Anxiety Brain metastases BRCA gene positive Hx of breast cancer Palliative care encounter Palliative care encounter Seizure disorder Due to tumor edematous burden Surgical History H/O bilateral mastectomy H/O craniotomy 05/2020-right frontal craniotomy for brain tumor resection H/O: hysterectomy History of cholecystectomy Family History Aunt Breast cancer Social History Smoking Status: Former smoker Tobacco Type: Cigarettes packs per day: 1; Years Smoked: 23; Second Hand Exposure: No; Do You Dip or Chew Tobacco: No; Tobacco Cessation Education Requested by Patient: No Hx Alcohol Use: No Hx Substance Use: No Preferred Language: French Communication Ability: Effective Building Official Required: No Beliefs That Will Affect Care: None marital status: Current Living Situation: Spouse How many Children do You have: 2 Other Information That Helps Us Care for You: No Feels Safe at Home: Yes Safety Concerns: Feels Safe At This Time Assistive Devices: None Review of Systems Review of Systems: [place] Symptom Assessment Scale Pain 3/3 Dyspnea 1/3 productive cough with hemoptysis Anxiety 3/3 Fatigue 2/3 Nausea 0/3 Drowsiness 0/3 Palliative Performance Score 50% Physical Exam Constitutional: + ill appearing and + disheveled; + uncomfortable ENMT: Mouth: + dry oral mucous membranes Respiratory: normal respiratory effort moist, productive cough Cardiovascular: Rate/Rhythm: regular rate and regular rhythm Gastrointestinal (Abdomen): Inspection/Auscultation: abdomen not distended Musculoskeletal: Extremities: + muscle atrophy Neurologic: awake; not confused Psychiatric: Orientation: alert and oriented x 3 Affect: + irritable affect Mood: + anxious mood Results & Data ([facility]) Vital Signs (Past 12 Hours) Vital Signs Temp Pulse Resp BP Pulse Ox 11/29/20 07:54 98.2 F 127 H 18 117/83 98 11/28/20 22:40 98.2 F 106 H 18 112/77 96 PG Care Time/CCT Total # of Minutes Spent Total Time Spent with Patient: Total time spent is greater than 50% in coordination of care (as documented) at patient's floor/unit and/or counseling patient: total time spent 60 minutes with more than 50% of time spent on symptom management, goals of care. Coding Level of Care Code 01630 Initial Inpt Care Lvl 2 Diagnoses Abdominal pain, epigastric R10.13 Back pain M54.9 Anxiety F41.9 Lung cancer C34.90 Lung location: unspecified part of lung Palliative care encounter Z51.5
[2020-11-29] MEDS: METOCLOPRAMIDE HCL 5 MG TABLET PO SCH ×3 (09:47→17:47)
--- NOTE | 2020-11-29 10:43 | Palliative Care Progress Note ---
Date of Service November 29, 2020 Assessment & Plan (1) Abdominal pain, epigastric: She had been on hydromorphone infusion at home with up to 2mg/hr dosing between basal and bolus dosing. I am concerned that her nausea and tachycardia are related to withdraw. Her pain is not adequately controlled. She has been refusing infusion, feeling that it doesn't work, but acknowledges that her pain was less on the infusion. Hopefully she will get some relief with celiac plexus block scheduled for tomorrow. I had a aris conversation with Josi about having a consistent plan for analgesia and adjusting dose as needed rather than abandoning one plan for another which has made control very difficult. For now, we will do routine dosing of hydromorphone with prn available. Will d/c morphine ER which had been stopped at her last hospitalization. We will reassess after celiac plexus block and adjust accordingly. (2) Nausea: No relief with reglan or compazine. Routine zyprexa for now. She has chronic constipation but had BM today. There are no new medications, but this may be related to withdraw. (3) Anxiety: A significant component of her suffering. I have talked with her about her support network. She says that she talks with her , Esteban, about her worries and concerns. She does not wish to discuss this outside of her family. Will order lorzepam routinely for more effective relief. (4) Palliative care encounter: Josi is currently on hospice care. She has indicated that she wants to continue with hospice care. She has also indicated that she is afraid to be at home. We will continue to discuss this as we adjust her medications. I did speak with her , Esteban, about the plan. He is agreeable and will be in to visit with her this afternoon. Admission and Anticipated Discharge Date Admission Date: November 28, 2020 Subjective Very uncomfortable this morning. Having nausea, tachycardic. Unable to take po medications. Rates pain in epigastrium as 8/10. Review of Systems Review of Systems: [place] Symptom Assessment Scale Pain 3/3 Dyspnea 0/3 Anxiety 3/3 Nausea 2/3 Fatigue 2/3 Drowsiness 0/3 Palliative Performance Scoe 50% Physical Exam Constitutional: + disheveled; + uncomfortable ENMT: Mouth: + dry oral mucous membranes Respiratory: moist cough Cardiovascular: Rate/Rhythm: + tachycardic Gastrointestinal (Abdomen): Inspection/Auscultation: abdomen not distended LBM 7/8 Musculoskeletal: Extremities: extremities normal to inspection Neurologic: awake; not confused Psychiatric: Orientation: alert and oriented x 3 Affect: + irritable affect Mood: + anxious mood Results & Data ([facility]) Vital Signs (Past 12 Hours) Vital Signs Temp Pulse Resp BP Pulse Ox 11/29/20 07:54 98.2 F 127 H 18 117/83 98 11/28/20 22:40 98.2 F 106 H 18 112/77 96 PG Care Time/CCT Total # of Minutes Spent Total Time Spent with Patient: Total time spent is greater than 50% in coordination of care (as documented) at patient's floor/unit and/or counseling patient: total time spent 50 minutes with more than 50% of time spent on sympto m management, patient education and support, coordination of care. Coding Level of Care Code 35586 Subseq Hosp Care Lvl 3 Diagnoses Abdominal pain, epigastric R10.13 Nausea R11.0 Anxiety F41.9 Palliative care encounter Z51.5
[2020-11-29] MEDS: MIDODRINE HCL 10 MG TAB PO SCH ×3 (10:52→17:48)
[2020-11-29] MEDS: FLUDROCORTISONE ACETATE 0.1 MG TAB PO SCH (10:52)
[2020-11-29] MEDS: guaiFENesin 600 MG TABCR PO SCH ×2 (10:53→20:10)
[2020-11-29] MEDS: POTASSIUM CHLORIDE CRTAB 20 MEQ TABCR PO SCH (10:54)
[2020-11-29] MEDS: MAGNESIUM CHLORIDE 64MG DELAYED REL TAB PO SCH ×2 (10:54→20:11)
[2020-11-29] MEDS: HYDROmorphone INJ 2 MG/ML SYR/VIAL IV SCH ×5 (11:07→22:02)
[2020-11-29] MEDS: PANTOprazole 40 MG TAB PO SCH (11:10)
[2020-11-29] MEDS: levETIRAcetam 500 MG TAB PO SCH ×2 (11:10→20:10)
[2020-11-29] MEDS: MoRPHine SULFATE CR 15 MG TABCR PO SCH (11:23)
[2020-11-29] MEDS: OLANZapine ZYDIS 5 MG ORALLY DIS. TAB PO SCH ×2 (13:11→20:11)
[2020-11-29] MEDS: LORazepam 1 MG TAB PO SCH ×2 (14:46→20:14)
[2020-11-29] MEDS: SODIUM CHLORIDE 0.9% 1000ML 1,000 ML IV SCH (16:34)
--- NOTE | 2020-11-29 21:05 | Hospitalist Progress Note ---
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 She was in the ER on 11/27 and given 2 mg IV Dilaudid at that point time and sent home. Patient represents with worsening abdominal pain. Patient reports near inability to eat food but is able to take some meds via mouth. Struggles with large capsules/tablets such as potassium and has not been taking this. -2 mg IV Dilaudid given in the ER -restarted Dilaudid CONTROL TOWER RADIO OPERATOR. Patient has been using CONTROL TOWER RADIO OPERATOR at home however did not find significant relief, will slightly increase in dosages while here in the hospital to optimize her pain control. Narcan as needed ordered. -Holding IR oxycodone prn, allow ER morphine Q12h scheduled. -Allow patient to continue Ativan 1 mg TID anxiety -Continue Keppra 1500 mg twice daily for seizure disorder -Patient is now off prednisone taper which was prescribed after her last hospital stay -Continue antiemetics as needed, bowel regimen Pain management also consulted - plan for celiac plexus block tmrw DVT PPx: - tony, lachos CODE: DNR/DNI Dispo: From home, likely to remain in the hospital x 1-2 days Admission and Anticipated Discharge Date Admission Date: November 28, 2020 Subjective Pt seen in follow up of uncontrolled pain 2/2 lung cancer with metastases Currently laying in bed in NAD Seen by palliative medicine and pain now better controlled Seen by pain management and plan for celiac plexus block tomorrow Review of Systems Review of Systems: All systems reviewed & are unremarkable except as noted in HPI & below Physical Exam Physical Exam: General: awake, alert, no apparent distress Head: Normocephalic, atraumatic ENT: PERRL, EOMI, no pharyngeal exudate, mucous membranes slightly dry Chest: on room air, + rhonchorous breath sounds throughout, cough, no sputum production, no wheezes or rales. Cardiac: Sinus tachycardia, no murmur, no JVD, normal peripheral pulses, good capillary refill Abdominal: NABS x 4 quadrants, soft, nondistended, + tender with minimal palpation, no rebound or guarding Extremities: Normal inspection, no peripheral edema or erythema, calfs nontender to palpation Psych: Normal mood and affect Neuro: AAO x 3, strength intact bilaterally and rated 5/5, no motor deficits, speech is clear, no peripheral sensory deficits Results & Data Results & Data ([facility]) Vital Signs (Past 12 Hours) Vital Signs Temp Pulse Resp BP Pulse Ox 11/29/20 16:07 36.6 C 98 H 16 106/75 90 11/29/20 13:14 36.7 C 120 H 14 112/81 96 Laboratory Results 11/29/20 11/28/20 11/28/20 Range/Units 07:38 22:19 22:00 Sodium 138 137 (136-145) mmol/L Potassium 3.3 L 3.3 L D (3.5-5.1) mmol/L Chloride 105 102 (98-107) mmol/L Carbon Dioxide 22 22 (21-32) mmol/L Anion Gap 12.0 H 14.0 H (3-11) BUN 2 L 3 L (7-18) mg/dl Creatinine 0.27 L 0.28 L (0.6-1.2) mg/dl Est Cr Clr Drug Dosing 258.6 249.3 ml/min Est GFR ( Amer) > 150.0 > 150.0 ml/min Est GFR (Non-Af Amer) 144.2 142.4 ml/min BUN/Creatinine Ratio 6.6 L 9.4 L (10-20) Glucose 88 83 (70-99) mg/dl Calcium 8.9 9.2 (8.5-10.1) mg/dl Magnesium 1.5 L (1.8-2.4) mg/dl Urine Color Yellow Urine Appearance Clear (Clear) Urine pH 5.5 (4.5-7.5) Ur Specific [place] 1.027 (1.000-1.030) Urine Protein Trace H (Negative) Urine Glucose (UA) Negative (Negative) Urine Ketones 4+ H (Negative) Urine Blood Trace H (Negative) Urine Nitrite Negative (Negative) Urine Bilirubin Negative (Negative) Urine Urobilinogen Negative (Negative) Ur Leukocyte Esterase Negative (Negative) Urine WBC (Auto) 5-10 H (0-5) /hpf Urine RBC (Auto) 0-4 (0-4) /hpf U Hyaline Cast (Auto) 1-5 (0-5) /lpf U Epithel Cells (Auto) >30 H (0-5) /lpf Urine Bacteria (Auto) 1+ H (Negative) Medications Administered Current Inpatient Medications Bisacodyl (Bisacodyl 10 Mg Supp) 10 mg UT DAILY PRN PRN Reason: Constipation Stop: 12/28/20 18:04 Docusate Sodium (Docusate Sodium 100 Mg Cap) 100 mg PO BID PRN PRN Reason: Constipation Stop: 12/28/20 18:04 Fludrocortisone Acetate (Fludrocortisone Acetate 0.1 Mg Tab) 0.1 mg PO QAM [facility] Stop: 12/29/20 08:59 Last Admin: 11/29/20 10:52 Dose: Not Given Documented by: Guaifenesin (Guaifenesin 600 Mg Tabcr) 1,200 mg PO Q12 [facility] Stop: 12/28/20 20:59 Last Admin: 11/29/20 20:10 Dose: Not Given Documented by: Hydromorphone HCl (Hydromorphone Inj 2 Mg/Ml Syr/Vial) 2 mg IV Q3H [facility] Stop: 12/13/20 10:29 Last Admin: 11/29/20 20:05 Dose: 2 mg Documented by: Hydromorphone HCl (Hydromorphone Inj 0.5 Mg/0.5 Ml Syr) 0.5 mg IV Q1H PRN PRN Reason: Pain Stop: 12/13/20 10:22 Last Admin: 11/29/20 13:11 Dose: 0.5 mg Documented by: Hyoscyamine (Hyoscyamine Sulfate 0.125 Mg Tab) 0.125 mg SL Q4 PRN PRN Reason: Secretions Stop: 12/28/20 18:04 Potassium Chloride 40 meq/ (Sodium Chloride) 1,020 mls @ 125 mls/hr IV .Q8H10M [facility] Stop: 12/28/20 17:59 Last Admin: 11/29/20 20:05 Dose: 125 mls/hr Documented by: Prochlorperazine 10 mg/ (Syringe) 10 mls @ 5 mls/min IV Q6H PRN PRN Reason: Nausea And Vomiting Stop: 12/28/20 18:04 Last Admin: 11/29/20 08:32 Dose: 5 mls/min Documented by: Ondansetron HCl 8 mg/ Dextrose 54 mls @ 216 mls/hr IV Q4 PRN PRN Reason: Nausea Stop: 12/28/20 18:15 Last Infusion: 11/29/20 06:27 Dose: Infused Documented by: Lactulose (Lactulose Syrup 20 Gm/30 Ml Udc) 20 gm PO BID PRN PRN Reason: CONSTIPATION Stop: 12/28/20 18:12 Levetiracetam (Levetiracetam 500 Mg Tab) 1,500 mg PO BID [facility] Stop: 12/28/20 20:59 Last Admin: 11/29/20 20:10 Dose: 1,500 mg Documented by: Lorazepam (Lorazepam 1 Mg Tab) 1 mg PO TID [facility] Stop: 12/29/20 13:59 Last Admin: 11/29/20 20:14 Dose: 1 mg Documented by: Magnesium Chloride (Magnesium Chloride 64mg Delayed Rel Tab) 64 mg PO BID [facility] Stop: 12/28/20 20:59 Last Admin: 11/29/20 20:11 Dose: Not Given Documented by: Metoclopramide HCl (Metoclopramide Hcl 5 Mg Tablet) 5 mg PO AC [facility] Stop: 12/28/20 18:04 Last Admin: 11/29/20 17:47 Dose: 5 mg Documented by: Midodrine (Midodrine Hcl 10 Mg Tab) 10 mg PO TID@0700,1300,1800 [facility] Stop: 12/28/20 18:04 Last Admin: 11/29/20 17:48 Dose: 10 mg Documented by: Naloxone HCl (Naloxone Hcl 0.4 Mg/1 Ml Vial/Carp) 0.1 mg IV Q5M PRN; Protocol PRN Reason: Oversedation/Resp Depression Stop: 12/12/20 15:48 Olanzapine (Olanzapine Zydis 5 Mg Orally Dis. Tab) 5 mg PO BID [facility] Stop: 12/29/20 10:29 Last Admin: 11/29/20 20:11 Dose: 5 mg Documented by: Pantoprazole Sodium (Pantoprazole 40 Mg Tab) 40 mg PO DAILY [facility] Stop: 12/29/20 08:59 Last Admin: 11/29/20 11:10 Dose: Not Given Documented by: Polyethylene Glycol (Polyethylene (Miralax) 17 Gm Pack) 17 gm PO QID PRN PRN Reason: Constipation Stop: 12/28/20 18:04 Potassium Chloride (Potassium Chloride Crtab 20 Meq Tabcr) 20 meq PO DAILY [facility] Stop: 12/29/20 08:59 Last Admin: 11/29/20 10:54 Dose: Not Given Documented by: Senna/Docusate Sodium (Docusate Sodium/Senna 50/8.6mg Tab) 1 tab PO BID PRN PRN Reason: Constipation Stop: 12/28/20 18:04 (1) Adenocarcinoma of lung Laterality: unspecified laterality Qualified Code(s): C34.90 - Malignant neoplasm of unspecified part of unspecified bronchus or lung
[2020-11-29] MEDS ORDERED: MAGNESIUM SULFATE / D5W 1 GM/100 ML BAG IV ONE (21:15)
[2020-11-29] MEDS: MAGNESIUM OXIDE 400 MG TAB PO SCH (22:03)
[2020-11-30] MEDS: HYDROmorphone INJ 0.5 MG/0.5 ML SYR IV PRN ×5 (00:49→20:06)
[2020-11-30] MEDS: HYDROmorphone INJ 2 MG/ML SYR/VIAL IV SCH ×8 (01:42→21:04)
[2020-11-30] MEDS: POTASSIUM CHLORIDE 40 MEQ in SODIUM CHLORIDE 0.9% 1000ML 1,000 ML IV SCH ×3 (04:14→20:06)
[2020-11-30] MEDS: METOCLOPRAMIDE HCL 5 MG TABLET PO SCH ×3 (06:45→17:51)
[2020-11-30] MEDS: MIDODRINE HCL 10 MG TAB PO SCH ×3 (06:45→17:50)
[2020-11-30 06:46] LABS: BUN Creatinine Ratio 5.8 (10-20); Blood Urea Nitrogen 1 mg/dl (7-18); Calcium 8.3 mg/dl (8.5-10.1); Carbon Dioxide 25 mmol/L (21-32); Chloride 107 mmol/L (98-107); Creatinine Clr Calc Pharmacy 332.4 ml/min; Est GFR (African American) > 150.0 ml/min; Est GFR (Non-African American) > 150.0 ml/min; Glucose 75 mg/dl (70-99); Magnesium 1.7 mg/dl (1.8-2.4); Potassium 3.8 mmol/L (3.5-5.1); Sodium 138 mmol/L (136-145)
[2020-11-30] MEDS: FLUDROCORTISONE ACETATE 0.1 MG TAB PO SCH (07:59)
[2020-11-30] MEDS: guaiFENesin 600 MG TABCR PO SCH ×2 (08:00→20:09)
[2020-11-30] MEDS: levETIRAcetam 500 MG TAB PO SCH ×2 (08:01→20:13)
[2020-11-30] MEDS: LORazepam 1 MG TAB PO SCH ×3 (08:01→21:05)
[2020-11-30] MEDS: MAGNESIUM OXIDE 400 MG TAB PO SCH ×2 (08:02→20:12)
[2020-11-30] MEDS: OLANZapine ZYDIS 5 MG ORALLY DIS. TAB PO SCH ×2 (08:02→20:15)
[2020-11-30] MEDS: MAGNESIUM CHLORIDE 64MG DELAYED REL TAB PO SCH ×2 (08:02→20:12)
[2020-11-30] MEDS: PANTOprazole 40 MG TAB PO SCH (08:07)
[2020-11-30] MEDS: POTASSIUM CHLORIDE CRTAB 20 MEQ TABCR PO SCH (08:07)
--- NOTE | 2020-11-30 08:43 | Hospitalist Progress Note ---
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 She was in the ER on 11/27 and given 2 mg IV Dilaudid at that point time and sent home. Patient represents with worsening abdominal pain. Patient reports near inability to eat food but is able to take some meds via mouth. Struggles with large capsules/tablets such as potassium and has not been taking this. -2 mg IV Dilaudid given in the ER -restarted Dilaudid ASSISTANT PROFESSOR OF CRIMINAL JUSTICE on admission. Patient has been using ASSISTANT PROF[employer]OR [employer]INAL [employer] at home however did not find significant relief, will slightly increase in dosages while here in the hospital to optimize her pain control. Narcan as needed ordered. -Holding IR oxycodone prn, allow ER morphine Q12h scheduled. -Allow patient to continue Ativan 1 mg TID anxiety -Continue Keppra 1500 mg twice daily for seizure disorder -Patient is now off prednisone taper which was prescribed after her last hospital stay -Continue antiemetics as needed, bowel regimen Pain management also consulted - now s/p celiac plexus block (11/30/20) w/ Dr. Pratt Patient tolerated procedure well Discussed with palliative medicine that she is not interested in ASSISTANT PROFESSOR [employer]INAL JUSTICE, and would prefer to be discharged over the weekend on p.o. pain meds DVT PPx: - teds, scds CODE: DNR/DNI Dispo: From home, likely to remain in the hospital x 1-2 days Admission and Anticipated Discharge Date Admission Date: November 28, 2020 Subjective Pt seen in follow up of uncontrolled pain 2/2 lung cancer with metastases Currently laying in bed in NAD Seen by pain management and now s/p celiac plexus block , tolerated procedure well Also seen by palliative medicine and pain now better controlled Patient is not interested in ASSISTANT PROFESSOR OF CRIMINAL JUSTICE, and discussed with palliative medicine to be discharge on p.o. pain meds over the weekend Review of Systems Review of Systems: All systems reviewed & are unremarkable except as noted in HPI & below Constitutional: no fever and no chills Respiratory: no cough and no dyspnea Cardiovascular: no chest pain and no palpitations Gastrointestinal: + abdominal pain (improved) Physical Exam Physical Exam: General: awake, alert, no apparent distress Head: Normocephalic, atraumatic ENT: PERRL, EOMI, no pharyngeal exudate, mucous membranes slightly dry Chest: on room air, + rhonchorous breath sounds throughout, cough, no sputum production, no wheezes or rales. Cardiac: Sinus tachycardia, no murmur, no JVD, normal peripheral pulses, good capillary refill Abdominal: NABS x 4 quadrants, soft, nondistended, + tender with minimal palpation (seems improved now), no rebound or guarding Extremities: Normal inspection, no peripheral edema or erythema, calfs nontender to palpation Psych: Normal mood and affect Neuro: AAO x 3, strength intact bilaterally and rated 5/5, no motor deficits, s peech is clear, no peripheral sensory deficits Results & Data Results & Data ([facility]) Vital Signs (Past 12 Hours) Vital Signs Temp Pulse Resp BP Pulse Ox Pulse Ox 11/30/20 07:49 37 C 115 H 15 96/64 L 93 11/30/20 00:11 36.8 C 114 H 12 111/77 91 11/29/20 21:15 91 Laboratory Results 11/30/20 Range/Units 05:21 Sodium 138 (136-145) mmol/L Potassium 3.8 D (3.5-5.1) mmol/L Chloride 107 (98-107) mmol/L Carbon Dioxide 25 (21-32) mmol/L Anion Gap 6.0 (3-11) BUN 1 L (7-18) mg/dl Creatinine 0.21 L (0.6-1.2) mg/dl Est Cr Clr Drug Dosing 332.4 ml/min Est GFR ( Amer) > 150.0 ml/min Est GFR (Non-Af Amer) > 150.0 ml/min BUN/Creatinine Ratio 5.8 L (10-20) Glucose 75 (70-99) mg/dl Calcium 8.3 L (8.5-10.1) mg/dl Magnesium 1.7 L (1.8-2.4) mg/dl Medications Administered Current Inpatient Medications Bisacodyl (Bisacodyl 10 Mg Supp) 10 mg MD DAILY PRN PRN Reason: Constipation Stop: 12/28/20 18:04 Docusate Sodium (Docusate Sodium 100 Mg Cap) 100 mg PO BID PRN PRN Reason: Constipation Stop: 12/28/20 18:04 Fludrocortisone Acetate (Fludrocortisone Acetate 0.1 Mg Tab) 0.1 mg PO QAM [facility] Stop: 12/29/20 08:59 Last Admin: 11/30/20 07:59 Dose: 0.1 mg Documented by: Guaifenesin (Guaifenesin 600 Mg Tabcr) 1,200 mg PO Q12 [facility] Stop: 12/28/20 20:59 Last Admin: 11/30/20 08:00 Dose: Not Given Documented by: Hydromorphone HCl (Hydromorphone Inj 2 Mg/Ml Syr/Vial) 2 mg IV Q3H [facility] Stop: 12/13/20 10:29 Last Admin: 11/30/20 07:53 Dose: 2 mg Documented by: Hydromorphone HCl (Hydromorphone Inj 0.5 Mg/0.5 Ml Syr) 0.5 mg IV Q1H PRN PRN Reason: Pain Stop: 12/13/20 10:22 Last Admin: 11/30/20 06:47 Dose: 0.5 mg Documented by: Hyoscyamine (Hyoscyamine Sulfate 0.125 Mg Tab) 0.125 mg SL Q4 PRN PRN Reason: Secretions Stop: 12/28/20 18:04 Potassium Chloride 40 meq/ (Sodium Chloride) 1,020 mls @ 125 mls/hr IV .Q8H10M [facility] Stop: 12/28/20 17:59 Last Admin: 11/30/20 04:14 Dose: 125 mls/hr Documented by: Prochlorperazine 10 mg/ (Syringe) 10 mls @ 5 mls/min IV Q6H PRN PRN Reason: Nausea And Vomiting Stop: 12/28/20 18:04 Last Admin: 11/29/20 08:32 Dose: 5 mls/min Documented by: Ondansetron HCl 8 mg/ Dextrose 54 mls @ 216 mls/hr IV Q4 PRN PRN Reason: Nausea Stop: 12/28/20 18:15 Last Infusion: 11/29/20 06:27 Dose: Infused Documented by: Lactulose (Lactulose Syrup 20 Gm/30 Ml Udc) 20 gm PO BID PRN PRN Reason: CONSTIPATION Stop: 12/28/20 18:12 Levetiracetam (Levetiracetam 500 Mg Tab) 1,500 mg PO BID [facility] Stop: 12/28/20 20:59 Last Admin: 11/30/20 08:01 Dose: 1,500 mg Documented by: Lorazepam (Lorazepam 1 Mg Tab) 1 mg PO TID [facility] Stop: 12/29/20 13:59 Last Admin: 11/30/20 08:01 Dose: 1 mg Documented by: Magnesium Chloride (Magnesium Chloride 64mg Delayed Rel Tab) 64 mg PO BID [facility] Stop: 12/28/20 20:59 Last Admin: 11/30/20 08:02 Dose: 64 mg Documented by: Magnesium Oxide (Magnesium Oxide 400 Mg Tab) 400 mg PO BID [facility] Stop: 12/29/20 21:14 Last Admin: 11/30/20 08:02 Dose: 400 mg Documented by: Metoclopramide HCl (Metoclopramide Hcl 5 Mg Tablet) 5 mg PO AC [facility] Stop: 12/28/20 18:04 Last Admin: 11/30/20 06:45 Dose: 5 mg Documented by: Midodrine (Midodrine Hcl 10 Mg Tab) 10 mg PO TID@0700,1300,1800 [facility] Stop: 12/28/20 18:04 Last Admin: 11/30/20 06:45 Dose: 10 mg Documented by: Naloxone HCl (Naloxone Hcl 0.4 Mg/1 Ml Vial/Carp) 0.1 mg IV Q5M PRN; Protocol PRN Reason: Oversedation/Resp Depression Stop: 12/12/20 15:48 Olanzapine (Olanzapine Zydis 5 Mg Orally Dis. Tab) 5 mg PO BID [facility] Stop: 12/29/20 10:29 Last Admin: 11/30/20 08:02 Dose: 5 mg Documented by: Pantoprazole Sodium (Pantoprazole 40 Mg Tab) 40 mg PO DAILY [facility] Stop: 12/29/20 08:59 Last Admin: 11/30/20 08:07 Dose: Not Given Documented by: Polyethylene Glycol (Polyethylene (Miralax) 17 Gm Pack) 17 gm PO QID PRN PRN Reason: Constipation Stop: 12/28/20 18:04 Potassium Chloride (Potassium Chloride Crtab 20 Meq Tabcr) 20 meq PO DAILY [facility] Stop: 12/29/20 08:59 Last Admin: 11/30/20 08:07 Dose: Not Given Documented by: Senna/Docusate Sodium (Docusate Sodium/Senna 50/8.6mg Tab) 1 tab PO BID PRN PRN Reason: Constipation Stop: 12/28/20 18:04 (1) Adenocarcinoma of lung Laterality: unspecified laterality Qualified Code(s): C34.90 - Malignant neoplasm of unspecified part of unspecified bronchus or lung
--- NOTE | 2020-11-30 10:27 | History & Physical Bridge Note ---
Date of Service November 30, 2020 History & Physical Bridge Note History & Physical Bridge Note Josi Copeland is a 45-year-old female with a history of metastatic pancreatic cancer experiencing midepigastric pain. Patient is scheduled today for celiac plexus block to manage her pain. Patient's past medical history, surgical history, medication and allergy list has been reviewed and no changes noted since his last history and physical examination performed. Review of systems is negative for any cardiac, pulmonary, GI, , endocrine or acute neurological complaints other than what is listed in the HPI section. Physical exam: GENERAL: Patient appears her stated age. Speech and cognition is intact. Mood and affect is appropriate. Sensorium is clear. She is in no acute distress. HEAD: Normocephalic; atraumatic. EYES: Pupils are round, equal, and reactive to light. EOM intact. Mucous membranes moist and pink. No oral lesions noted. ENT: No external ear discharge or lesions. No rhinorrhea or epistaxis. No mucosal lesions. NECK: Full ROM. Trachea is midline. No thyromegaly. No cervical lymphadenopathy. Carotids without bruit. CARDIAC: Regular rate and rhythm. No murmur or gallops noted. CHEST: Regular chest respiration and excursion. Lungs are clear to auscultation. ABDOMEN: No organomegaly appreciated. Bowel sounds are hypoactive. She has midepigastric tenderness to palpation. EXTREMITIES: Full ROM and +5 strength of bilateral lower extremities. Distal sensation and pulses intact bilaterally. BACK: Normal curvatures. Nontender. NEURO: Cranial nerves II-XII grossly intact with no focal deficits noted. Deep tendon reflexes in the upper and the lower extremities are symmetrical. Sensation and motor strength testing is unremarkable. SKIN: No lesions, erythema, or rashes noted. ASSESSMENT: Midepigastric pain as result of pancreatic malignancy. RECOMMENDATIONS: Patient has been offered diagnostic/therapeutic celiac plexus block as alternative and in addition to use of opioids to manage her symptoms. Potential risks including infection, bleeding, nerve injury, reaction to any one of the medications used for the procedure, persistent pain at the injection site and persistent symptoms discussed with the patient. Specifically, injury to neurovascular structures including blood supply to the spinal cord resulting in paraplegia discussed with the patient. Diagnostic nature of the procedure also discussed with the patient. Alternatives to the specific procedure was also discussed with the patient. Patient's questions were answered. Patient gives informed consent to proceed.
[2020-11-30] MEDS ORDERED: ONDANSETRON INJ 2 MG/ML 2 ML VIAL ONE (10:37)
[2020-11-30] MEDS ORDERED: LIDOCAINE 2% 2 ML VIAL/AMP(20MG/ML) INFIL ONE (10:37)
[2020-11-30] MEDS ORDERED: MIDAZOLAM HCL 1 MG/ML 2ML VIAL ONE (10:37)
[2020-11-30] MEDS ORDERED: PROPOFOL IV EMULSION 10 MG/ML 20 ML VIAL IV ONE (10:37)
[2020-11-30] MEDS ORDERED: fentaNYL citrate 100 MCG/2 ML VIAL ONE (10:37)
[2020-11-30] MEDS ORDERED: DEXAMETHASONE SOD INJ 4 MG/ML VIAL ONE (10:38)
[2020-11-30] MEDS ORDERED: EPINEPHrine INJ 1 MG/ML AMP ONE (11:02)
[2020-11-30] MEDS ORDERED: TRIAMCINOLONE ACET 40 MG/ML VIAL ONE (11:02)
[2020-11-30] MEDS ORDERED: dexAMETHasone**PF** 10 MG/ML VIAL ONE (11:02)
[2020-11-30] MEDS ORDERED: LIDOCAINE 1% LOCAL 20 ML VIAL ONE (11:03)
--- NOTE | 2020-11-30 11:06 | Anesthesiology Consultation ---
Date of Service November 30, 2020 Assessment & Plan (1) Encounter for pre-operative examination: Chart Review Chart Review: Acceptable Risk for Surgery ASA ASA4 Proposed Anesthesia Anesthesia Type: MAC History Surgery Operation Date: 11/30/20 11:30 Proposed Procedures p Celiac Plexus Block - Andres Pratt MD, PP Height/Weight Height: 5 ft 7 in Weight: 72.6 kg Allergies Allergy/AdvReac Type Severity Reaction Status Date / Time Penicillins Allergy Intermediate Swelling Verified 11/27/20 02:40 Medications Home Medications Medication Instructions Recorded Confirmed Last Taken folic acid 1 mg PO QAM 07/09/20 11/28/20 10/29/20 ondansetron 8 mg PO Q8H PRN 07/09/20 11/28/20 10/21/20 prochlorperazine maleate 10 mg PO Q6H PRN 07/09/20 11/28/20 10/21/20 morphine 15 mg PO Q12H #60 tab 07/16/20 10/17/20 09/08/20 polyethylene glycol 3350 [Miralax] 17 g PO QID PRN 07/23/20 11/28/20 10/21/20 sennosides-docusate sodium 1 tab PO BID PRN 07/23/20 11/28/20 10/21/20 [Senokot-S] docusate sodium 100 mg PO BID PRN 07/29/20 11/28/20 10/21/20 levetiracetam 1,500 mg PO BID 08/16/20 11/28/20 10/30/20 08:00 magnesium chloride [Mag 64] 64 mg PO BID #60 tab 09/02/20 11/28/20 10/29/20 metoclopramide HCl 5 mg PO AC 09/04/20 11/28/20 10/29/20 fludrocortisone 0.1 mg PO QAM #30 tab 10/21/20 11/28/20 10/29/20 midodrine 10 mg PO TID@0700,1300,1800 #90 tab 10/21/20 11/28/20 10/29/20 morphine 15 mg PO Q4H PRN #90 tab 10/21/20 11/28/20 10/22/20 naloxone 4 mg/actuation nasal spray 1 spray INTRANASAL Q3M PRN #2 ea 10/23/20 11/28/20 Unknown morphine 30 mg PO Q12 #90 tab 10/25/20 11/28/20 10/29/20 lorazepam 1 mg PO TID PRN 10/26/20 11/28/20 10/30/20 08:00 potassium chloride 20 meq PO DAILY #14 tab 10/27/20 11/28/20 10/29/20 guaifenesin [Mucinex] 1,200 mg PO Q12 #10 tab 11/15/20 11/28/20 Unknown prednisone 20 mg PO DAILY #5 tab 11/15/20 11/28/20 Unknown bisacodyl [Dulcolax (bisacodyl)] 10 mg [place] DAILY PRN 11/27/20 11/28/20 Unknown hydromorphone 0 mg IV UD 11/27/20 11/28/20 Unknown hyoscyamine sulfate 0.125 mg SUBLINGUAL Q4 PRN 11/27/20 11/28/20 Unknown lactulose 30 ml PO BID PRN 11/27/20 11/28/20 Unknown omeprazole 20 mg PO DAILY 11/27/20 11/28/20 Unknown oxycodone 5 - 10 mg PO Q6 PRN 11/27/20 11/28/20 Unknown Active Medications Generic Name Dose Route Start Last Admin Trade Name Toanq PRN Reason Stop Dose Admin Fludrocortisone Acetate 0.1 mg 11/29/20 09:00 11/30/20 07:59 Fludrocortisone Acetate 0.1 Mg Tab PO 12/29/20 08:59 0.1 mg QAM KAMILA Administration Guaifenesin 1,200 mg 11/28/20 21:00 11/30/20 08:00 Guaifenesin 600 Mg Tabcr PO 12/28/20 20:59 Not Given Q12 KAMILA Hydromorphone HCl 2 mg 11/29/20 10:30 11/30/20 09:37 Hydromorphone Inj 2 Mg/Ml Syr/Vial IV 12/13/20 10:29 2 mg Q3H KAMILA Administration Hydromorphone HCl 0.5 mg 11/29/20 10:23 11/30/20 09:32 Hydromorphone Inj 0.5 Mg/0.5 Ml Syr IV 12/13/20 10:22 0.5 mg Q1H PRN Administration Pain Potassium Chloride 40 meq/ 1,020 mls @ 125 mls/hr 11/28/20 18:00 11/30/20 11:01 Sodium Chloride IV 12/28/20 17:59 0 mls/hr .Q8H10M KAMILA Infusion Prochlorperazine 10 mg/ 10 mls @ 5 mls/min 11/28/20 18:05 11/29/20 08:32 Syringe IV 12/28/20 18:04 5 mls/min Q6H PRN Administration Nausea And Vomiting Ondansetron HCl 8 mg/ Dextrose 54 mls @ 216 mls/hr 11/28/20 18:16 11/29/20 06:27 IV 12/28/20 18:15 Infused Q4 PRN Infusion Nausea Levetiracetam 1,500 mg 11/28/20 21:00 11/30/20 08:01 Levetiracetam 500 Mg Tab PO 12/28/20 20:59 1,500 mg BID KAMILA Administration Lorazepam 1 mg 11/29/20 14:00 11/30/20 08:01 Lorazepam 1 Mg Tab PO 12/29/20 13:59 1 mg TID KAMILA Administration Magnesium Chloride 64 mg 11/28/20 21:00 11/30/20 08:02 Magnesium Chloride 64mg Delayed Rel Tab PO 12/28/20 20:59 64 mg BID KAMILA Administration Magnesium Oxide 400 mg 11/29/20 21:15 11/30/20 08:02 Magnesium Oxide 400 Mg Tab PO 12/29/20 21:14 400 mg BID KAMILA Administration Metoclopramide HCl 5 mg 11/28/20 18:05 11/30/20 11:00 Metoclopramide Hcl 5 Mg Tablet PO 12/28/20 18:04 Not Given AC KAMILA Midodrine 10 mg 11/28/20 18:05 11/30/20 06:45 Midodrine Hcl 10 Mg Tab PO 12/28/20 18:04 10 mg TID@0700,1300,1800 KAMILA Administration Olanzapine 5 mg 11/29/20 10:30 11/30/20 08:02 Olanzapine Zydis 5 Mg Orally Dis. Tab PO 12/29/20 10:29 5 mg BID KAMILA Administration Pantoprazole Sodium 40 mg 11/29/20 09:00 07/09/21 08:07 Pantoprazole 40 Mg Tab PO 12/29/20 08:59 Not Given DAILY KAMILA Potassium Chloride 20 meq 11/29/20 09:00 11/30/20 08:07 Potassium Chloride Crtab 20 Meq Tabcr PO 12/29/20 08:59 Not Given DAILY KAMILA NPO Date Last Intake of Fluids: 11/29/20 Time Last Intake of Fluids: 23:59 Date Last Intake of Solids: 11/29/20 Time Last Intake of Solids: 23:59 Past Medical History Medical History Abdominal pain Adenocarcinoma of lung w/ extensive lymphadenopathy in the neck, chest, abdomen; brain and bilateral adrenal metastases Anxiety Brain metastases BRCA gene positive Hx of breast cancer Palliative care encounter Seizure disorder Due to tumor edematous burden Past Family History Family History Aunt Breast cancer Past Surgical History Surgical History H/O bilateral mastectomy H/O craniotomy 05/2020-right frontal craniotomy for brain tumor resection H/O: hysterectomy History of cholecystectomy Social History Smoking Status: Former smoker tobacco type: cigarettes Do You Dip or Chew Tobacco: No Hx Alcohol Use: No Hx Substance Use: No substance use type: does not use Physical Exam Vital Signs Last Vital Signs Temp 37 C 11/30/20 07:49 Pulse 115 H 11/30/20 07:49 Resp 15 11/30/20 07:49 BP 96/64 L 11/30/20 07:49 Pulse Ox 93 11/30/20 07:49 Testing Laboratory Results 11/28/20 11:06 11/30/20 05:21 Urine Color Yellow 11/28/20 22:00 Urine Appearance Clear (Clear) 11/28/20 22:00 Urine pH 5.5 (4.5-7.5) 11/28/20 22:00 Ur Specific [place] 1.027 (1.000-1.030) 11/28/20 22:00 Urine Protein Trace (Negative) H 11/28/20 22:00 Urine Glucose (UA) Negative (Negative) 11/28/20 22:00 Urine Ketones 4+ (Negative) H 11/28/20 22:00 Urine Nitrite Negative (Negative) 11/28/20 22:00 Ur Leukocyte Esterase Negative (Negative) 11/28/20 22:00 Urine WBC (Auto) 5-10 /hpf (0-5) H 11/28/20 22:00 Urine RBC (Auto) 0-4 /hpf (0-4) 11/28/20 22:00 U Hyaline Cast (Auto) 1-5 /lpf (0-5) 11/28/20 22:00 U Epithel Cells (Auto) >30 /lpf (0-5) H 11/28/20 22:00 Urine Bacteria (Auto) 1+ (Negative) H 11/28/20 22:00 11/28/20 22:00 Urine Culture - Preliminary Urine,Clean Catch Probable Enterococcus
[2020-11-30] MEDS ORDERED: fentaNYL citrate 100 MCG/2 ML VIAL IV PRN (11:10)
[2020-11-30] MEDS ORDERED: ONDANSETRON INJ 2 MG/ML 2 ML VIAL IV PRN (11:10)
[2020-11-30] MEDS ORDERED: ATROPINE SULFATE 0.1 MG/ML 10ML SYR IV PRN (11:10)
[2020-11-30 11:26] LABS: Appearance Urine Clear (Clear); Bacteria Urine Automated Negative (Negative); Bilirubin Urine Negative (Negative); Blood Urine Trace (Negative); Color Urine Yellow; Epithelial Cell Urine Auto 20-30 /lpf (0-5); Glucose Urine UA Negative (Negative); Ketones Urine 3+ (Negative); Leukocyte Esterase Urine Negative (Negative); Nitrite Urine Negative (Negative); Protein Urine Negative (Negative); RBC Urine Automated 0-4 /hpf (0-4); Specific Gravity Urine 1.014 (1.000-1.030); Urobilinogen Urine Negative (Negative)
[2020-11-30] MEDS ORDERED: IOPAMIDOL INJ 61% 15 ML VIAL INJ ONE (11:46)
--- NOTE | 2020-11-30 11:54 | Operative Report ---
Post Operative Report Pre & Post Diagnosis Operation Date: 11/30/20 11:30 Pre-Op Diagnosis: Pancreatic malignancy with epigastric pain Post-Op Diagnosis: Same I identified the patient and participated in the time-out.: Yes Procedure Operation Date: 11/30/20 11:30 Actual Procedures Celiac Plexus Block - Andres Pratt MD, SHARITA Surgeon Andres Pratt MD, SHARITA Senior Product Engineer None Estimated Blood Loss 0 Findings Consistent with Post-Op Diagnosis Specimens None Drains None Anesthesia Type MAC Disposition Accompanied Patient To Recovery: No Disposition: Recovery Room Description of Procedure CELIAC PLEXUS BLOCK Preoperative diagnosis: Mid epigastric pain due to pancreatic malignancy. Postoperative diagnosis: Same Anesthesia: Monitored anesthesia care EBL: 0 Complications: None Disposition: To PACU Side/Level injected: Right side, L1 vertebral body Surgeon: Dr. Pratt Prior to starting, the Patients diagnosis and the procedure were reviewed with the patient in detail. Possible risks and complications including infection, bleeding, damage to surrounding structures and increased pain were discussed. Alternative therapies were also reviewed. Patients questions were answered and they agreed to proceed. Informed consent was obtained. Allergies and medication list was reviewed. The patient was brought to the operating room and placed in prone position. Immediately prior to starting the procedure, a ``time out was conducted with the staff and the patient where the patient was identified, proposed procedure was verified, consent was reviewed and the proper site for the planned procedure was identified. Monitors used included intermittent blood pressure with automated device, continuous pulse oximetry and level of consciousness. Patient was not given any intravenous sedation and constant verbal contact was maintained throughout the procedure. Biplanar fluoroscopy was used to assist in placement of the needle as well as to evaluate final needle position prior to the injection. On examination, no signs of skin breakdown or infection were noted at the injection site. The site was cleansed with DuraPrep followed by Betadine. Sterile drapes were applied. Antibiotic prophylaxis was given IV prior to the start of the injection. The thoracolumbar spine area was prepped with DuraPrep and Betadine solution. Sterile drapes were applied. Next, a true AP view of the L1 vertebral body was identified. The C-arm was then turned approximately 25 obliquely to the appropriate side that the superior lateral margin of the vertebral body was congruent with the transverse process. 1% Lidocaine 3 cc, was infiltrated in the skin and subcutaneous tissues using a 27 gauge needle. Then a 22-gauge, 5 inch Quincke spinal needle with a 15 curved tip was introduced at the superior lateral margin of the L1 vertebral body and advanced until contact was made with the vertebral body. The needle was the rotated and walked off laterally from the vertebral body. In a true AP view and it was advanced until the needle tip lied at the anterior edge of the L1 vertebral body. A 6 inch micro bore tubing was attached to the needle. Next, 3ml of Isovue 300 contrast was injected showing typical spread along the celiac plexus. Digital subtraction angiography at 8 fps showed no vascular uptake. This was confirmed again in AP view. No blood, CSF or paresthesias were noted. Next 3 cc of 0.5% ropivacaine containing 1-100,000 epinephrine was injected and no change in heart rate was seen. Additional 10 mL of 0.5% Ropivacaine containing 10 aqueous dexamethasone milligrams of aqueous dexamethasone was injected in 5ml aliquots after negative aspiration for blood or CSF. No complications were noted. There were no signs or symptoms of local anesthetic toxicity. The needle was withdrawn. Adequate hemostasis was noted. A sterile Band-Aid was applied at the injection site. Patient was then transferred to the recovery room for observation. I attest to the content of the Intraoperative Record and any orders documented therein. Any exceptions are noted below.
--- NOTE | 2020-11-30 12:08 | Pain Management Progress Note ---
Date of Service November 30, 2020 Assessment & Plan (1) Epigastric abdominal pain: Status post celiac plexus block. Present on Admission?: Yes Admission and Anticipated Discharge Date Admission Date: November 28, 2020 Subjective Prior to the procedure, patient continued to experience her typical left-sided abdominal midepigastric pain. She underwent a celiac plexus block via right approach uneventfully.
--- NOTE | 2020-11-30 12:09 | Anesthesiology Progress Note ---
Date of Service November 30, 2020 Anesthesia Post Procedure Vital Signs Vital Signs: Temp Pulse Resp BP Pulse Ox Pulse Ox 11/30/20 11:10 37.5 C 120 H 18 110/74 93 11/30/20 07:49 37 C 115 H 15 96/64 L 93 11/30/20 00:11 36.8 C 114 H 12 111/77 91 11/29/20 21:15 91 11/29/20 16:07 36.6 C 98 H 16 106/75 90 11/29/20 13:14 36.7 C 120 H 14 112/81 96 Pain Intensity Abdomen: Pain Intensity: 8 Transfer of Care Handoff Completed per policy Notes Mental Status: alert / awake / arousable Patient Amnestic to Procedure: Yes Nausea / Vomiting: adequately controlled Pain: adequately controlled Airway Patency, RR, SpO2: stable & adequate BP & HR: stable & adequate Hydration State: stable & adequate Anesthetic Complications: no major complications apparent
--- NOTE | 2020-11-30 13:34 | Palliative Care Progress Note ---
Date of Service November 30, 2020 Assessment & Plan (1) Epigastric abdominal pain: s/p celiac plexus block . Will decrease frequency of routine hydromorphone dosing to every four hours. Continue prn dosing. 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 (2) Nausea: Improved with routine zyprexa (3) Anxiety: Improved with routine lorazepam (4) Palliative care encounter: I talked with Josi about medication adjustments and plan to rotate to oral opioids in anticipation of discharge to home. She tells me that she is looking forward to going home. We talked about her previous anxiety about going home and she reports that she feels more comfortable with that and having hospice support at home. Discussed with RN and Dr. Farris. (5) Adenocarcinoma of lung: Admission and Anticipated Discharge Date Admission Date: November 28, 2020 Subjective Resting after celiac plexus block. She reports that pain is better. She's had prn hydromorphone x 3 in last 24 hours. She denies nausea. Review of Systems Review of Systems: [place] Symptom Assessment Scale Pain 1/3 Dyspnea 0/3 Anxiety 1/3 Fatigue 1/3 Nausea 0/3 Drowsiness 0/3 Palliative Performance Score 50% Physical Exam Constitutional: no acute distress Respiratory: normal respiratory effort; no labored breathing Gastrointestinal (Abdomen): Inspection/Auscultation: abdomen not distended Musculoskeletal: Extremities: extremities normal to inspection Neurologic: awake; not confused Psychiatric: Orientation: alert and oriented x 3 Results & Data ([facility]) Vital Signs (Past 12 Hours) Vital Signs Temp Pulse Pulse Pulse Resp BP Pulse Ox 11/30/20 13:04 97.9 F 108 H 16 108/74 91 11/30/20 12:49 97.9 F 121 H 16 121/80 95 11/30/20 12:30 98.1 F 111 H 15 109/72 100 11/30/20 12:20 108 H 22 97/75 L 97 11/30/20 12:10 99.5 F 109 H 22 101/70 95 11/30/20 12:00 117 H 15 136/74 99 11/30/20 11:50 98.6 F 128 H 21 107/85 94 11/30/20 11:10 99.5 F 120 H 18 110/74 93 11/30/20 07:49 98.6 F 115 H 15 96/64 L 93 PG Care Time/CCT Total # of Minutes Spent Total Time Spent with Patient: Total time spent is greater than 50% in coordination of care (as documented) at patient's floor/unit and/or counseling patient: total time spent 35 minutes with more than 50% of time spent on symptom management, support, plan of care. Coding Level of Care Code 39453 Subseq Hosp Care Lvl 3 Diagnoses Epigastric abdominal pain R10.13 Nausea R11.0 Anxiety F41.9 Palliative care encounter Z51.5 Adenocarcinoma of lung C34.90 Laterality: unspecified laterality (1) Adenocarcinoma of lung Laterality: unspecified laterality Qualified Code(s): C34.90 - Malignant neoplasm of unspecified part of unspecified bronchus or lung
[2020-11-30] MEDS ORDERED: HEPARIN 100 UNIT/ML 5ML FLUSH IV PRN (16:38)
[2020-12-01] MEDS: HYDROmorphone INJ 0.5 MG/0.5 ML SYR IV PRN ×6 (00:06→12:45)
[2020-12-01] MEDS: HYDROmorphone INJ 2 MG/ML SYR/VIAL IV SCH ×3 (01:22→09:19)
[2020-12-01] MEDS: POTASSIUM CHLORIDE 40 MEQ in SODIUM CHLORIDE 0.9% 1000ML 1,000 ML IV SCH (04:10)
[2020-12-01] MEDS: MIDODRINE HCL 10 MG TAB PO SCH (06:05)
--- NOTE | 2020-12-01 08:00 | Hospitalist Progress Note ---
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 She was in the ER on 11/27 and given 2 mg IV Dilaudid at that point time and sent home. Patient represents with worsening abdominal pain. Patient reports near inability to eat food but is able to take some meds via mouth. Struggles with large capsules/tablets such as potassium and has not been taking this. -2 mg IV Dilaudid given in the ER -restarted Dilaudid INORGANIC CHEMISTRY TEACHER on admission. Patient has been using INORGANIC CHEMISTRY TEACHER at home however did not find significant relief, will slightly increase in dosages while here in the hospital to optimize her pain control. Narcan as needed ordered. -Holding IR oxycodone prn, allow ER morphine Q12h scheduled. -Allow patient to continue Ativan 1 mg TID anxiety -Continue Keppra 1500 mg twice daily for seizure disorder -Patient is now off prednisone taper which was prescribed after her last hospital stay -Continue antiemetics as needed, bowel regimen Pain management also consulted - now s/p celiac plexus block (11/30/20) w/ Dr. Pratt Patient tolerated procedure well Plan to discharge patient home with [facility] hospice, as previously, on INORGANIC CHEMISTRY TEACHER Dilaudid pump as previously DVT PPx: - teds, scds CODE: DNR/DNI Dispo: From home, DC home w/ hospice Admission and Anticipated Discharge Date Admission Date: November 28, 2020 Subjective Pt seen in follow up of uncontrolled pain 2/2 lung cancer with metastases Currently laying in bed in NAD Seen by pain management and now s/p celiac plexus block , tolerated procedure well Also seen by palliative medicine and pain now better controlled Plan to DC home w/ hospice and INORGANIC CHEMISTRY TEACHER Review of Systems Review of Systems: All systems reviewed & are unremarkable except as noted in HPI & below Constitutional: no fever and no chills Respiratory: + cough Cardiovascular: no chest pain Gastrointestinal: + abdominal pain (improved) Physical Exam Physical Exam: General: awake, alert, no apparent distress Head: Normocephalic, atraumatic ENT: PERRL, EOMI, no pharyngeal exudate, mucous membranes slightly dry Chest: on room air, + rhonchorous breath sounds throughout, cough, no sputum production, no wheezes or rales. Cardiac: RRR HR in 90s, no murmur, no JVD, normal peripheral pulses, good capillary refill Abdominal: NABS x 4 quadrants, soft, nondistended, + tender with minimal palpation (seems improved now), no rebound or guarding Extremities: Normal inspection, no peripheral edema or erythema, calfs nontender to palpation Psych: Normal mood and affect Neuro: AAO x 3, strength intact bilaterally and rated 5/5, no motor deficits, speech is clear, no peripheral sensory deficits Results & Data Results & Data ([facility]) Vital Signs (Past 12 Hours) Vital Signs Temp Pulse Resp BP Pulse Ox Pulse Ox 12/01/20 07:23 36.8 C 93 H 16 108/73 93 12/01/20 04:08 36.5 C 125 H 18 132/84 92 11/30/20 23:54 36.7 C 104 H 14 117/78 94 11/30/20 20:05 93 Laboratory Results 11/30/20 Range/Units 11:00 Urine Color Yellow Urine Appearance Clear (Clear) Urine pH 5.0 (4.5-7.5) Ur Specific [place] 1.014 (1.000-1.030) Urine Protein Negative (Negative) Urine Glucose (UA) Negative (Negative) Urine Ketones 3+ H (Negative) Urine Blood Trace H (Negative) Urine Nitrite Negative (Negative) Urine Bilirubin Negative (Negative) Urine Urobilinogen Negative (Negative) Ur Leukocyte Esterase Negative (Negative) Urine WBC (Auto) 1-5 (0-5) /hpf Urine RBC (Auto) 0-4 (0-4) /hpf U Hyaline Cast (Auto) 1-5 (0-5) /lpf U Epithel Cells (Auto) 20-30 H (0-5) /lpf Urine Bacteria (Auto) Negative (Negative) Medications Administered Current Inpatient Medications Bisacodyl (Bisacodyl 10 Mg Supp) 10 mg [place] DAILY PRN PRN Reason: Constipation Stop: 12/28/20 18:04 Docusate Sodium (Docusate Sodium 100 Mg Cap) 100 mg PO BID PRN PRN Reason: Constipation Stop: 12/28/20 18:04 Fludrocortisone Acetate (Fludrocortisone Acetate 0.1 Mg Tab) 0.1 mg PO QAM [facility] Stop: 12/29/20 08:59 Last Admin: 11/30/20 07:59 Dose: 0.1 mg Documented by: Guaifenesin (Guaifenesin 600 Mg Tabcr) 1,200 mg PO Q12 [facility] Stop: 12/28/20 20:59 Last Admin: 11/30/20 20:09 Dose: Not Given Documented by: Heparin Sodium (Porcine) (Heparin 100 Unit/Ml 5ml Flush) 5 ml IV PRN PRN PRN Reason: Flush Stop: 12/30/20 16:37 Hydromorphone HCl (Hydromorphone Inj 0.5 Mg/0.5 Ml Syr) 0.5 mg IV Q1H PRN PRN Reason: Pain Stop: 12/13/20 10:22 Last Admin: 12/01/20 06:05 Dose: 0.5 mg Documented by: Hydromorphone HCl (Hydromorphone Inj 2 Mg/Ml Syr/Vial) 2 mg IV Q4H [facility] Stop: 12/14/20 13:44 Last Admin: 12/01/20 04:55 Dose: 2 mg Documented by: Hyoscyamine (Hyoscyamine Sulfate 0.125 Mg Tab) 0.125 mg SL Q4 PRN PRN Reason: Secretions Stop: 12/28/20 18:04 Potassium Chloride 40 meq/ (Sodium Chloride) 1,020 mls @ 125 mls/hr IV .Q8H10M [facility] Stop: 12/28/20 17:59 Last Admin: 12/01/20 04:10 Dose: 125 mls/hr Documented by: Prochlorperazine 10 mg/ (Syringe) 10 mls @ 5 mls/min IV Q6H PRN PRN Reason: Nausea And Vomiting Stop: 12/28/20 18:04 Last Admin: 11/29/20 08:32 Dose: 5 mls/min Documented by: Ondansetron HCl 8 mg/ Dextrose 54 mls @ 216 mls/hr IV Q4 PRN PRN Reason: Nausea Stop: 12/28/20 18:15 Last Infusion: 11/29/20 06:27 Dose: Infused Documented by: Lactulose (Lactulose Syrup 20 Gm/30 Ml Udc) 20 gm PO BID PRN PRN Reason: CONSTIPATION Stop: 12/28/20 18:12 Levetiracetam (Levetiracetam 500 Mg Tab) 1,500 mg PO BID KAMILA Stop: 12/28/20 20:59 Last Admin: 11/30/20 20:13 Dose: 1,500 mg Documented by: Lorazepam (Lorazepam 1 Mg Tab) 1 mg PO TID KAMILA Stop: 12/29/20 13:59 Last Admin: 11/30/20 21:05 Dose: 1 mg Documented by: Magnesium Chloride (Magnesium Chloride 64mg Delayed Rel Tab) 64 mg PO BID KAMILA Stop: 12/28/20 20:59 Last Admin: 11/30/20 20:12 Dose: Not Given Documented by: Magnesium Oxide (Magnesium Oxide 400 Mg Tab) 400 mg PO BID KAMILA Stop: 12/29/20 21:14 Last Admin: 11/30/20 20:12 Dose: Not Given Documented by: Metoclopramide HCl (Metoclopramide Hcl 5 Mg Tablet) 5 mg PO AC KAMILA Stop: 12/28/20 18:04 Last Admin: 11/30/20 17:51 Dose: 5 mg Documented by: Midodrine (Midodrine Hcl 10 Mg Tab) 10 mg PO TID@0700,1300,1800 KAMILA Stop: 12/28/20 18:04 Last Admin: 12/01/20 06:05 Dose: 10 mg Documented by: Naloxone HCl (Naloxone Hcl 0.4 Mg/1 Ml Vial/Carp) 0.1 mg IV Q5M PRN; Protocol PRN Reason: Oversedation/Resp Depression Stop: 12/12/20 15:48 Olanzapine (Olanzapine Zydis 5 Mg Orally Dis. Tab) 5 mg PO BID KAMILA Stop: 12/29/20 10:29 Last Admin: 11/30/20 20:15 Dose: 5 mg Documented by: Pantoprazole Sodium (Pantoprazole 40 Mg Tab) 40 mg PO DAILY KAMILA Stop: 12/29/20 08:59 Last Admin: 11/30/20 08:07 Dose: Not Given Documented by: Polyethylene Glycol (Polyethylene (Miralax) 17 Gm Pack) 17 gm PO QID PRN PRN Reason: Constipation Stop: 12/28/20 18:04 Potassium Chloride (Potassium Chloride Crtab 20 Meq Tabcr) 20 meq PO DAILY KAMILA Stop: 12/29/20 08:59 Last Admin: 11/30/20 08:07 Dose: Not Given Documented by: Senna/Docusate Sodium (Docusate Sodium/Senna 50/8.6mg Tab) 1 tab PO BID PRN PRN Reason: Constipation Stop: 12/28/20 18:04 (1) Adenocarcinoma of lung Laterality: unspecified laterality Qualified Code(s): C34.90 - Malignant neoplasm of unspecified part of unspecified bronchus or lung
[2020-12-01] MEDS: METOCLOPRAMIDE HCL 5 MG TABLET PO SCH ×2 (08:29→11:41)
[2020-12-01] MEDS: levETIRAcetam 500 MG TAB PO SCH (08:30)
[2020-12-01] MEDS: POTASSIUM CHLORIDE CRTAB 20 MEQ TABCR PO SCH (08:31)
[2020-12-01] MEDS: guaiFENesin 600 MG TABCR PO SCH (08:31)
[2020-12-01] MEDS: MAGNESIUM OXIDE 400 MG TAB PO SCH (08:32)
[2020-12-01] MEDS: PANTOprazole 40 MG TAB PO SCH (08:32)
[2020-12-01] MEDS: FLUDROCORTISONE ACETATE 0.1 MG TAB PO SCH (08:32)
[2020-12-01] MEDS: MAGNESIUM CHLORIDE 64MG DELAYED REL TAB PO SCH (08:33)
[2020-12-01] MEDS: OLANZapine ZYDIS 5 MG ORALLY DIS. TAB PO SCH (08:33)
[2020-12-01] MEDS: LORazepam 1 MG TAB PO SCH (08:35)
[2020-12-01 08:51] LABS: BUN Creatinine Ratio 9.7 (10-20); Blood Urea Nitrogen 2 mg/dl (7-18); Calcium 8.6 mg/dl (8.5-10.1); Carbon Dioxide 24 mmol/L (21-32); Chloride 105 mmol/L (98-107); Creatinine Clr Calc Pharmacy 303.5 ml/min; Est GFR (African American) > 150.0 ml/min; Est GFR (Non-African American) > 150.0 ml/min; Glucose 80 mg/dl (70-99); Magnesium 1.6 mg/dl (1.8-2.4); Potassium 3.9 mmol/L (3.5-5.1); Sodium 138 mmol/L (136-145)
--- NOTE | 2020-12-01 12:01 | Discharge Summary ---
Date of Service December 01, 2020 Admission HPI Per Admitting Provider This is a 45 yo F with PMHx significant for NSCLC with brain mets status post stereotactic radiosurgery, brain tumor resection (05/2020) on steroid Rx on chemotherapy, with metastatic pancreatic mass found previous admission at end of October 2020. During that time, she had biliary enteric stent with secondary pneumobilia. She was also placed on a steroid taper discussed with Dr. Barillas. Palliative care was consulted at that time for goals of care, with transition towards hospice care. At that time the patient was not ready to transition to comfort care, and requested second opinion from oncology with [facility]. She went home with DRY COLOR TESTER pump Dilaudid with 1 mg baseline and bolus 0.5 mg with 30 minute lock. Other PMHs includes history seizures, history TIA, breast cancer status post mastectomy, history BRCA gene mutation positivity, chronic anemia (baseline hemoglobin of 10-11), orthostatic hypotension on fludrocortisone and midodrine, past tobacco abuse. Pt returns to the ER for worsening abdominal pain and is agreeable to being admitted for pain control. She is present with her at bedside and reports that she is already on hospice. The patient is intermittently tearful during my exam. She does not want any of her medications changed other than having the Dilaudid DRY COLOR TESTER readjusted. She is willing to see palliative care while she is here. Pt was in the ER yesterday and was given Dilaudid 2 mg IV and a potassium replacement via IV, and went home. Pt now returned due to complaints previously mentioned. Admission Exam Per Admitting Provider General: awake, alert, no apparent distress, + anxious and tearful Head: Normocephalic, atraumatic ENT: PERRL, EOMI, no pharyngeal exudate, mucous membranes slightly dry Chest: on room air, + rhonchorous breath sounds throughout, cough, no sputum production, no wheezes or rales. Cardiac: Sinus tachycardia, no murmur, no JVD, normal peripheral pulses, good capillary refill Abdominal: NABS x 4 quadrants, soft, nondistended, + tender with minimal palpation, no rebound or guarding Extremities: Normal inspection, no peripheral edema or erythema, calfs nontender to palpation Psych: Normal mood and affect Neuro: AAO x 3, strength intact bilaterally and rated 5/5, no motor deficits, speech is clear, no peripheral sensory deficits Principal Diagnosis Lung cancer with metastases Abdominal pain secondary to above Now status post celiac plexus block Discharge Exam General: awake, alert, no apparent distress Head: Normocephalic, atraumatic ENT: PERRL, EOMI, no pharyngeal exudate, mucous membranes slightly dry Chest: on room air, + rhonchorous breath sounds throughout, cough, no sputum production, no wheezes or rales. Cardiac: RRR HR in 90s, no murmur, no JVD, normal peripheral pulses, good capillary refill Abdominal: NABS x 4 quadrants, soft, nondistended, + tender with minimal palpation (seems improved now), no rebound or guarding Extremities: Normal inspection, no peripheral edema or erythema, calfs nontender to palpation Psych: Normal mood and affect Neuro: AAO x 3, strength intact bilaterally and rated 5/5, no motor deficits, speech is clear, no peripheral sensory deficits Discharge Data Allergies Allergy/AdvReac Type Severity Reaction Status Date / Time Penicillins Allergy Intermediate Swelling Verified 11/27/20 02:40 Consultations 11/28/20 13:29 Consult Palliative Care Stat 11/28/20 14:55 ED Decision to Admit Stat 11/28/20 18:05 Consult Palliative Care Routine 11/29/20 08:00 Consult Pain Management Routine Procedures Performed Operation Date: 11/30/20 11:30 Actual Procedures p Celiac Plexus Block(Not Applicable) - Andres Pratt MD, [facility] Ordered Studies 11/28/20 11:21 CT angio abdomen pelvis w con Stat IMPRESSION: 1. Patent biliary stent with gas fluid level. Mild interval worsening of pneumobilia. Redemonstration of pancreatic head fullness and dilated distal pancreatic duct, similar to prior study. Cutoff sign of the pancreatic duct usually seen in malignancy. Differential diagnosis might include focal pancreatitis however is less likely. 2. Interval prominence of multiple pulmonary nodules with surrounding g roundglass attenuation which might represent infectious/inflammatory process. Please correlate above-mentioned findings with clinical presentation of pulmonary infection disease. 3. Redemonstration of patchy area of nonenhancement within the right renal cortex which might represent infarct or pyelonephritis. No surrounding fat stranding is seen. 4. Aorta is normal in caliber without aneurysmal dilatation, stenosis or dissection. Celiac, superior mesenteric and renal arteries are patent. 5. Small slightly enhancing mass within the urinary bladder. 6. Retroperitoneal and mesenteric lymphadenopathy. CT angio chest PE protocol Stat IMPRESSION: 1. There is no evidence of pulmonary embolus in the main, lobar, or segmental pulmonary arteries. 2. Emphysema. 3. A large spiculated mass in the right upper lobe is similar in size to the 07/29/2020 examination. 4. There is an increasing right hilar component of this lesion/adenopathy, with numerous bilateral pulmonary metastases. Lymphangitic spread of tumor is suggested throughout the right lung and this has progressed as compared to 07/29/2020. 5. There is extensive mediastinal lymphadenopathy, as well as left hilar and right supraclavicular lymphadenopathy. This also appears overall modestly progressed. 6. Adrenal metastases are again noted. 7. Left axillary adenopathy persists but appears decreased from 07/29/2020. ADDENDUM: A 2.6 cm low-attenuation lesion in the upper pole of the right kidney has increased in size as compared to recent prior studies and is new from older examinations dating back to 2019. This is also concerning for neoplasm. 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 She was in the ER on 11/27 and given 2 mg IV Dilaudid at that point time and sent home. Patient represents with worsening abdominal pain. Patient reports near inability to eat food but is able to take some meds via mouth. Struggles with large capsules/tablets such as potassium and has not been taking this. -2 mg IV Dilaudid given in the ER -restarted Dilaudid DRY COLOR TESTER on admission. Patient has been using DRY COLOR TESTER at home however did not find significant relief, will slightly increase in dosages while here in the hospital to optimize her pain control. Narcan as needed ordered. -Holding IR oxycodone prn, allow ER morphine Q12h scheduled. -Allow patient to continue Ativan 1 mg TID anxiety -Continue Keppra 1500 mg twice daily for seizure disorder -Patient is now off prednisone taper which was prescribed after her last hospital stay -Continue antiemetics as needed, bowel regimen Pain management also consulted - now s/p celiac plexus block (11/30/20) w/ Dr. Pratt Patient tolerated procedure well Plan to discharge patient home with [facility] hospice, as previously, on DRY COLOR TESTER Dilaudid pump as previously DVT PPx: - teds, scds CODE: DNR/DNI Dispo: From home, DC home w/ hospice Total Time Total Time Spent Total Time Spent (In Minutes): 35 Total Time Includes: Examination of the Patient, Discharge Planning, Medication Reconciliation and Communication With Other Providers Discharge Plan Discharge Items Patient Disposition: Hospice - Home Reason For Visit: abd pain coughing up blood on hospice Discharge Diagnosis: Lung cancer with metastases Abdominal pain secondary to above now status post celiac plexus block Activity: Per Instructions section Non-emergency contact: Primary Care Provider Call non-emergency contact if: you have any medication questions and your symptoms worsen Follow-up/Referrals: Jasiel Fritz DO [Primary Care Provider] - Diet: Other - See Diet Comment Diet Comment: As tolerated Addtl Attending Provider Instructions: Patient with lung cancer with metastases, abdominal pain secondary to that. Underwent celiac plexus block during this admission. To be discharged back with [facility] hospice, with DRY COLOR TESTER Dilaudid pump as previously. Pending Studies at Discharge: No Stand-Alone Forms: [facility] and [facility] Order Prescriptions: New magnesium oxide 400 mg (241.3 mg magnesium) Tablet 400 mg PO BID Qty: 10 RF: 0 Continued naloxone 4 mg/actuation spray,non-aerosol 1 spray intranasal Q3M PRN (Reason: opioid overdose) Qty: 2 RF: 0 folic acid 1 mg Tablet 1 mg PO QAM RF: 0 ondansetron 8 mg Tablet,Disintegrating 8 mg PO Q8H PRN (Reason: Nausea) RF: 0 prochlorperazine maleate 10 mg Tablet 10 mg PO Q6H PRN (Reason: Nausea) RF: 0 polyethylene glycol 3350 [Miralax] 17 gram powder in packet 17 g PO QID PRN (Reason: Constipation) RF: 0 sennosides-docusate sodium [Senokot-S] 8.6-50 mg tablet 1 tab PO BID PRN (Reason: Constipation) RF: 0 docusate sodium 100 mg capsule 100 mg PO BID PRN (Reason: Constipation) RF: 0 midodrine 10 mg Tablet 10 mg PO TID@0700,1300,1800 Qty: 90 RF: 0 morphine 15 mg Tablet 15 mg PO Q4H PRN (Reason: pain) Qty: 90 RF: 0 fludrocortisone 0.1 mg Tablet 0.1 mg PO QAM Qty: 30 RF: 0 prednisone 20 mg Tablet 20 mg PO DAILY Qty: 5 RF: 0 guaifenesin [Mucinex] 600 mg Tablet Extended Release 12hr 1,200 mg PO Q12 Qty: 10 RF: 0 omeprazole 20 mg Capsule,Delayed Release(Dr/Ec) 20 mg PO DAILY RF: 0 oxycodone 5 mg tablet 5 - 10 mg PO Q6 PRN (Reason: pain) RF: 0 bisacodyl [Dulcolax (bisacodyl)] 10 mg suppository 10 mg NH DAILY PRN (Reason: Constipation) RF: 0 hyoscyamine sulfate 0.125 mg tablet 0.125 mg sublingual Q4 PRN (Reason: Secretions) RF: 0 lactulose 10 gram/15 mL solution 30 ml PO BID PRN (Reason: ..) RF: 0 hydromorphone 1 mg/mL solution 0 mg IV UD RF: 0 levetiracetam 500 mg tablet 1,500 mg PO BID RF: 0 magnesium chloride [Mag 64] 64 mg Tablet,Delayed Release (Dr/Ec) 64 mg PO BID Qty: 60 RF: 0 metoclopramide HCl 5 mg tablet 5 mg PO AC RF: 0 morphine 15 mg Tablet Extended Release 30 mg PO Q12 Qty: 90 RF: 0 lorazepam 1 mg tablet 1 mg PO TID PRN (Reason: Anxiety) RF: 0 potassium chloride 20 mEq tablet extended release 20 meq PO DAILY Qty: 14 RF: 0 Discharge Orders: Discharge Order (Routine); Ordered 12/01/20 Ordered By: Jose Farris Admission Data Admit Date/Time: 11/28/20 15:14 Attending Provider: Jose Farris Admit Provider: Diana Mccrary Primary Care Provider: Jasiel Fritz Other Providers: Shelly Walters ; [facility],Home Healthcare ; Dario Aguayo ; Andres Pratt
== END 2020-12-01 13:45 | disposition hospice, home (50) | DRG 948 ==
LOC: ED 09:49 → SUATTDRO 15:14 → 3E 15:14